=== PATIENT | female | born 1975 | race Caucasian/White ===

== ENCOUNTER → 2017-02-06 | Outpatient (CLI) | payer OTHER, SELFPAY | PROVIDERS: Visit Provider Obstetrics & Gynecology | DX: R10.2 Pelvic and perineal pain (principal) | CPT/HCPCS: 76830 ==

== ENCOUNTER → 2017-02-14 | Outpatient (RCR) | payer OTHER, SELFPAY | LOC: PT 11-14 13:23 | PROVIDERS: PCP Emergency Medicine; Visit Provider Emergency Medicine | DX: Z51.89 Encounter for other specified aftercare (principal); M54.5 Low back pain; M25.559 Pain in unspecified hip ==

== ENCOUNTER 2017-03-06 09:39 | Emergency (ER) | payer OTHER, SELFPAY ==
[2017-03-06 10:01] VITALS: BP 112/80; PULSE 77; RESP 20; TEMP 36.6; O2SAT 100; BMI 29.0
--- NOTE | 2017-03-06 10:33 | HMH.EDUTC ---
[facility] Disposition Clinical Impression: Bronchitis Disposition: Home, Self-Care Condition on Discharge: Good Instructions: DI for Acute Bronchitis Additional Instructions: * Monitor Temp. FU if fever develop * humidifier/vaporizer/hot steamy shower * Inhaler every 4-6 hours as needed like we discussed. If unsure how to use it, ask pharmacist to demonstrate how. Should help open airways and improve cough, wheezing, shortness of breath. * Mucinex during the day for your cough and cough suppressant only at night. Be sure to drink lots of water. Insurance may not cover a prescription of mucinex. Might be cheaper to get 400mg tablets and take 2 tablets morning, midday and evening all with lots of water. * Promethazine DM cough syrup will cause drowsiness. Use it only at night. No driving, operating machinery or caring for small children after taking it. * Start steroid today. Helps with inflammation therefore, cough and wheezing. Follow directions on package. Rvwd side effects. Pt reports they have taken them before. Prescriptions: methylPREDNISolone [Medrol] 4 mg PO DIRECTED #1 tab.ds.pk Promethazine/Dextromethorphan [Promethazine-Dm Syrup] 10 ml PO QID PRN #240 ml PRN Reason: Cough Referrals: Juan Carlos Jeffers MD [Primary Care Provider] - (IMMEDIATELY for new or worsening symptoms OR no noticeable improvement over the next 48-72 hours. 911 for difficulty breathing.) Time of Disposition: 12:08 Medical Decision Making Vital Signs: 03/06/17 10:01 Temperature 97.8 F Temperature Source Temporal Artery Scan Pulse Rate [Right Brachial] 77 Respiratory Rate 20 Blood Pressure [Right Arm] 112/80 Blood Pressure Mean [Right Arm] 90 Blood Pressure Source [Right Arm] Automatic Cuff Blood Pressure Position [Right Arm] Sitting 02 Sat by Pulse Oximetry 100 Oxygen Delivery Method Room Air - Lab Data Lab results reviewed: Yes: I reviewed the patient's lab results. Lab Results 03/06/17 10:53: Influenza Type A Ag Negative, Influenza Type B Ag Negative - Radiology Data #1 Image(s): Chest Image Reviewed: Yes I reviewed the patient's radiology image, Yes I have reviewed radiologist's interpretation, Yes I reviewed the patient's radiology image w/the ED provider Preliminary Findings: Normal/NAD (Dr. Woods rvwd results prior to radiologist report) - [place] Inquiry Pt receiving controlled substance: No [facility] HPI - General Stated complaint: flu like symptoms Time Seen by Provider: 03/06/17 10:34 Mode of Arrival: Family Vehicle Source of Information: Patient Limitations: No Limitations Description of Symptoms (Recalled from Triage Doc. by RN): COUGH AND CONGESTION. HEENT Symptoms (Recalled from RN notes): No Resp Symptoms (Recalled from RN notes): Yes (COUGH CONGESTION) Skin Symptoms (Recalled from RN notes): No MS Symptoms (Recalled from RN notes): No Functional Status (Recalled from RN notes): NA - History of Present Illness Provider Complaint: c/o nonprod cough. Started Friday, 3 days ago. Associated w/ bodyaches,chills, feeling feverish but hasn't checked temp. No improvement despite mucinex, robitussin, albuterol HFA and nebs. Occasional SOA. No wheezing. Denies asthma or COPD. reports has inhalers/nebs d/t SOA w/ exertion chronically that improved once she started exercising. Nonsmoker. Quit approx 20 years ago. No known sick contacts. Has had flu vaccine. - Related Data Home Medications Medication Instructions Recorded Confirmed Topiramate [Topamax 25mg tablet] 25 mg PO DAILY 03/06/17 03/06/17 Previous Rx's Medication Instructions Recorded Promethazine/Dextromethorphan 10 ml PO QID PRN #240 ml 03/06/17 [Promethazine-Dm Syrup] methylPREDNISolone [Medrol] 4 mg PO DIRECTED #1 tab.ds.pk 03/06/17 Allergies Allergy/AdvReac Type Severity Reaction Status Date / Time No Known Allergies Allergy Verified 02/20/17 10:41 - Worker's Comp Is this a Worker's Comp case?: No [facility]
--- NOTE | 2017-03-06 10:40 | ED_ITS ---
[facility] [place] Disposition Clinical Impression: Bronchitis Disposition: Home, Self-Care Condition on Discharge: Good Instructions: DI for Acute Bronchitis Additional Instructions: * Monitor Temp. FU if fever develop * humidifier/vaporizer/hot steamy shower * Inhaler every 4-6 hours as needed like we discussed. If unsure how to use it, ask pharmacist to demonstrate how. Should help open airways and improve cough, wheezing, shortness of breath. * Mucinex during the day for your cough and cough suppressant only at night. Be sure to drink lots of water. Insurance may not cover a prescription of mucinex. Might be cheaper to get 400mg tablets and take 2 tablets morning, midday and evening all with lots of water. * Promethazine DM cough syrup will cause drowsiness. Use it only at night. No driving, operating machinery or caring for small children after taking it. * Start steroid today. Helps with inflammation therefore, cough and wheezing. Follow directions on package. Rvwd side effects. Pt reports they have taken them before. Prescriptions: methylPREDNISolone [Medrol] 4 mg PO DIRECTED #1 tab.ds.pk Promethazine/Dextromethorphan [Promethazine-Dm Syrup] 10 ml PO QID PRN #240 ml PRN Reason: Cough Referrals: Juan Carlos Jeffers MD [Primary Care Provider] - (IMMEDIATELY for new or worsening symptoms OR no noticeable improvement over the next 48-72 hours. 911 for difficulty breathing.) Time of Disposition: 12:08 Medical Decision Making Vital Signs: 03/06/17 10:01 Temperature 97.8 F Temperature Source Temporal Artery Scan Pulse Rate [Right Brachial] 77 Respiratory Rate 20 Blood Pressure [Right Arm] 112/80 Blood Pressure Mean [Right Arm] 90 Blood Pressure Source [Right Arm] Automatic Cuff Blood Pressure Position [Right Arm] Sitting 02 Sat by Pulse Oximetry 100 Oxygen Delivery Method Room Air - Lab Data Lab results reviewed: Yes: I reviewed the patient's lab results. Lab Results 03/06/17 10:53: Influenza Type A Ag Negative, Influenza Type B Ag Negative - Radiology Data #1 Image(s): Chest Image Reviewed: Yes I reviewed the patient's radiology image, Yes I have reviewed radiologist's interpretation, Yes I reviewed the patient's radiology image w/the ED provider Preliminary Findings: Normal/NAD (Dr. Woods rvwd results prior to radiologist report) - [place] Inquiry Pt receiving controlled substance: No [facility] [place] HPI - General Stated complaint: flu like symptoms Time Seen by Provider: 03/06/17 10:34 Mode of Arrival: Family Vehicle Source of Information: Patient Limitations: No Limitations Description of Symptoms (Recalled from Triage Doc. by RN): COUGH AND CONGESTION. HEENT Symptoms (Recalled from RN notes): No Resp Symptoms (Recalled from RN notes): Yes (COUGH CONGESTION) Skin Symptoms (Recalled from RN notes): No MS Symptoms (Recalled from RN notes): No Functional Status (Recalled from RN notes): NA - History of Present Illness Provider Complaint: c/o nonprod cough. Started Friday, 3 days ago. Associated w / bodyaches,chills, feeling feverish but hasn't checked temp. No improvement despite mucinex, robitussin, albuterol HFA and nebs. Occasional SOA. No wheezing. Denies asthma or COPD. reports has inhalers/nebs d/t SOA w/ exertion chronically that improved once she started exercising. Nonsmoker. Quit approx 20 years ago. No known sick contacts. Has had flu vaccine. - Related Data Home Medications Medication Instructions Recorded C
--- NOTE | 2017-03-06 10:53 | XR_ITS ---
XR chest 2V HISTORY: ITS.REASON: COUGH/SOA X4 DAYS. NON-SMOKER ORDERING PHYSICIAN: Hattie Avina PATIENT AGE: 41 years COMPARISON: 17 FINDINGS: The cardiomediastinal silhouette and pulmonary vascularity are within normal limits. The lungs are clear without infiltrates, suspicious nodules, or pleural effusions. Surgical clips are present over the left breast No acute bony abnormalities. IMPRESSION: Negative chest, no acute finding
[2017-03-06 10:54] LABS: UTC Influenza A Antigen Negative (Negative); UTC Influenza B Antigen Negative (Negative)
== END 2017-03-06 12:10 | disposition home or self-care (01) ==
PROVIDERS: Emergency Provider Nurse Practitioner Family; Family Provider Emergency Medicine; PCP Emergency Medicine
DX: J40 Bronchitis, not specified as acute or chronic (principal); I25.2 Old myocardial infarction; Z79.899 Other long term (current) drug therapy
CPT/HCPCS: 71046; 87804; 99201; 99202

== ENCOUNTER 2017-03-13 13:36 | Emergency (ER) | payer OTHER, SELFPAY | END 2017-03-13 16:11 | disposition left against medical advice (07) | PROVIDERS: Emergency Provider Nurse Practitioner Family; Family Provider Emergency Medicine; PCP Emergency Medicine | DX: Z53.29 Procedure and treatment not carried out because of patient's decision for other reasons (principal) ==

== ENCOUNTER → 2017-03-27 08:00 | Outpatient (CLI) | payer OTHER, SELFPAY ==
--- NOTE | 2017-03-27 08:04 | XR_ITS ---
XR hand LT min 3V HISTORY: Pain following injury ITS.REASON: left hand possible thumb fracture ORDERING PHYSICIAN: Gonsalo Jarvis MD PATIENT AGE: 41 years COMPARISON: None FINDINGS: There is a faint transverse lucency involving the distal shaft of the first metacarpal which could be due to a nondisplaced fracture. No other significant anomalies are evident. IMPRESSION: Possible nondisplaced fracture distal shaft of first metacarpal. Follow-up study in 7-10 days may confirm.
--- NOTE | 2017-03-27 08:59 | US_ITS ---
US abdomen limited: HISTORY: Left lower quadrant pain ORDERING PHYSICIAN: Gonsalo Jarvis MD PATIENT AGE: 41 years COMPARISON: None FINDINGS: Ultrasound performed of the left lower quadrant. No obvious hernia. No obvious abdominal wall mass or abnormal fluid collection. IMPRESSION: Unremarkable limited ultrasound left lower quadrant. Consider CT for more thorough evaluation
== END ==
PROVIDERS: Family Provider Emergency Medicine; PCP Emergency Medicine; Visit Provider Obstetrics & Gynecology
DX: R10.9 Unspecified abdominal pain (principal); M79.642 Pain in left hand
CPT/HCPCS: 73130; 76705

== ENCOUNTER → 2017-04-18 09:01 | Outpatient (CLI) | payer OTHER, SELFPAY ==
--- NOTE | 2017-04-18 09:04 | XR_ITS ---
XR hand LT min 3V HISTORY: Pain following injury ITS.REASON: follow up ORDERING PHYSICIAN: Primo Tanner MD PATIENT AGE: 41 years COMPARISON: None FINDINGS: No definite fracture or dislocation evident. There is a transverse lucency once again noted at the distal aspect of the first metacarpal but is probably related to a mock line. Overall not significantly changed. No other significant anomalies evident. IMPRESSION: No acute finding. No definite fracture.
== END ==
PROVIDERS: PCP Emergency Medicine; Visit Provider Orthopaedic Surgery
DX: S63.642A Sprain of metacarpophalangeal joint of left thumb, initial encounter (principal)
CPT/HCPCS: 73130

== ENCOUNTER → 2017-04-21 09:52 | Outpatient (CLI) | payer OTHER, SELFPAY ==
--- NOTE | 2017-04-21 09:54 | CT_ITS ---
CT abdomen pelvis wo con Ordering Physician: Gonsalo Jarvis MD Patient Age: 41 years: Female HISTORY: ITS.REASON: Abdominal Pain Lower abdominal pain since November 2016 previous hysterectomy. TECHNIQUE: Helical CT scanning through abdomen and pelvis with oral contrast only. No IV contrast utilized. Sagittal axial and coronal CT reconstructions on CT workstation. COMPARISON :Previous CT abdomen and pelvis 617 FINDINGS Lung bases. The previous bibasilar atelectasis is since resolved. Lung bases appear clear with no acute findings. Heart normal size. A borderline wall thickening at the GE junction. Possible small hiatal hernia. Abdomen/pelvis. Lack of IV contrast decreases sensitivity Liver. No focal lesions on this noncontrast study. No biliary ductal dilatation . Pancreas unremarkable on this noncontrast study. Spleen unremarkable. Kidneys satisfactory. No urinary tract calculi nor obstruction. GI tract. The appendix is normal. Nicely visualized. Moderate stool is seen throughout the colon. Oral contrast is moved rapidly through the small bowel and through the majority of the colon to the proximal sigmoid colon. Small bowel appears normal caliber and terminal ileum unremarkable.. Numerous small nodes I believe account for the slight hazy fat appearance at the retroperitoneal region, most evident left periaortic region. This was seen before and slightly more apparent today. See no dominant node or nodule but if symptoms persist this may warrant follow-up to exclude a lymphoproliferative abnormalities. Unlikely but noted This Similar slight hazy appearance just superior to the celiac artery again noted as well however this feature has remained stable since studies dating back to 2016. Only some tiny mesenteric lymph nodes otherwise seen. No significant appearing pelvic adenopathy. Stable moderate size inguinal nodes. No pathologic appearing nodes. Hysterectomy. Generous wall thickness in May bladder could reflect a cystitis or merely its markedly contracted state. Generous soft tissue thickness about the vaginal cuff. Postsurgical changes at pelvis. Slightly more evident density at the right pelvis again seen in either related vaginal cuff or possibly residual right ovary no significant adnexal masses. No free fluid abdomen or pelvis. Lumbar spine. There is some mild hypertrophic degenerative facet changes throughout the lower L-spine but no spinal stenosis or osseous findings of significance. Hips intact. Osseous pelvis intact. IMPRESSION 1. Hysterectomy.. Postsurgical changes but No prominent findings Only question some possible mild thickening at the vaginal cuff more to the right than left.. 2. There is diffuse wall thickening of the urinary bladder. It may reflect is lack of distention although cannot exclude a cystitis. Urinalysis and clinical Correlation required 3. Hazy appearance at retroperitoneal & periaortic fat, but with no significant change 2016. Nonspecific. No pathologic nor prominent lymph nodes additionally raise concern. 4. Appendix normal. 5. Bowel unremarkable. No acute findings abdomen or pelvis. No free fluid. No free air in the abdomen or pelvis . Moderate stool throughout colon.. No urinary tract calculi nor obstruction.
== END ==
PROVIDERS: Family Provider Emergency Medicine; PCP Emergency Medicine; Visit Provider Obstetrics & Gynecology
DX: R10.9 Unspecified abdominal pain (principal)
CPT/HCPCS: 74176

== ENCOUNTER → 2017-05-15 10:09 | Outpatient (CLI) | payer OTHER, SELFPAY ==
[2017-05-15 10:17] LABS: Microscopic, Urine URINE MICROSCOPIC (MICROSCOPIC)
[2017-05-15 10:52] LABS: Appearance,Urine CLEAR (Clear); Bilirubin,Urine Negative (Negative); Blood, Urine Negative (Negative); Color,Urine YELLOW (Yellow); Glucose,Urine (UA) Negative (Negative); Ketones,Urine Negative (Negative); Leukocyte Esterase,Urine Negative (Negative); Nitrate,Urine Negative (Negative); Protein,Urine Negative (Negative); Urobilinogen,Urine 0.2 EU/dl (0.2)
[2017-05-15 10:54] LABS: Basophils % 0.6 % (0.1-2.0); Eosinophils # 0.1 K/mm3 (0.0-0.4); Eosinophils % 1.5 % (0.1-12.0); Hematocrit 36.3 % (37.0-47.0); Hemoglobin 11.4 g/dL (12.2-16.2); Lymphocytes # 1.6 K/mm3 (0.7-4.5); Lymphocytes % 28.4 K/mm3 (10-50); Mean Corpuscular HGB Conc 31.4 g/dL (31.8-35.4); Mean Corpuscular Hemoglobin 28.3 pg (27.0-31.2); Mean Corpuscular Volume 89.9 fl (81-99); Mean Platelet Volume 7.9 fl (7.4-10.4); Monocytes # 0.3 K/mm3 (0.1-1.0); Monocytes % 5.8 % (1.7-9.3); Neutrophils # 3.6 K/mm3 (1.8-7.8); Neutrophils % 63.6 % (37.0-80.0); Platelet Count 351 K/mm3 (142-424); Red Blood Count 4.04 M/mm3 (4.20-5.40); Red Cell Distribution Width 13.5 % (11.5-17.5); White Blood Count 5.6 K/mm3 (4.8-10.8)
[2017-05-15 11:41] LABS: Bacteria,Urine 2+ /lpf; RBC,Urine Occasional #/hpf (0-3)
[2017-05-15 11:54] LABS: HCG Qualitative, Serum Negative (Negative)
[2017-05-15 11:57] LABS: Alanine Aminotransferase 21 U/L (12-78); Albumin Level 3.5 gm/dL (3.4-5.0); Alkaline Phosphatase 81 U/L (46-116); Anion Gap 9.2 mEq/L (5-15); Aspartate Amino Transferase 19 U/L (15-37); Bilirubin,Total 0.3 mg/dL (0.2-1.0); Blood Urea Nitrogen 11 mg/dL (7-18); Calcium 8.7 mg/dL (8.5-10.1); Carbon Dioxide 27 mmol/L (21.0-32.0); Chloride 106 mmol/L (98-107); Creatinine,Serum 0.83 mg/dL (0.55-1.02); Estimated Glomerular Filt Rate 76 ml/min (>60); GFR (African American) 92 ML/MIN (>60); Globulin 3.5 gm/dl (1.3-3.2); Glucose 85 mg/dL (74-106); Potassium 4.2 mmoL/L (3.5-5.1); Sodium 138 mmol/L (136-145)
== END ==
PROVIDERS: Visit Provider Obstetrics & Gynecology
DX: Z01.812 Encounter for preprocedural laboratory examination (principal); R10.2 Pelvic and perineal pain
CPT/HCPCS: 36415; 80053; 81001; 84703; 85025; 87086

== ENCOUNTER 2017-05-20 06:02 | Day surgery (SDC) | payer OTHER, SELFPAY ==
[2017-05-19 09:58] VITALS: BMI 34.0
[2017-05-20] VITALS (17 sets, daily range): BP systolic 104–137; BP diastolic 57–92; PULSE 53–72; RESP 12–20; TEMP 36.3–43; O2SAT 89–100
--- NOTE | 2017-05-20 06:52 | HMH.ANESCL ---
[facility] Anesthesia Checklist - Patient Identification Patient Identification: Arm Band, Verbal (Name & ) - Structural Data Admitted From: Home Planned Operative Procedure/s: dx lap Consent for Planned Operative Procedure(s) Verified: Yes Verified Documents: Surgical Consent, History and Physical - NPO Status Verified Time NPO: 00:00 - Chart Verification Results Verified: CBC, BMP - Additional verifications Patient : No Anesthesia Reactions: No Hx Blood Transfusions: No Blood Transfusion Reaction: No Cephalosporin Allergy: No Previous Colonoscopy: No - Cardiovascular Assessment Heart Sounds: S1 & S2 Pulse Strength: Baseline Pulse Rhythm: Regular Peripheral Edema: No - Airway Assessment C-Spine Mobility Assessed: Yes TMJ Mobility Assessed: Yes Dentition: Good Dentition - Neurological Assessment Level of Consciousness: Awake, Alert, Appropriate Hx Seizures: No Numbness or tingling in extremities: No - Anesthesia Plan Anesthesia Risk discussed: Yes Anesthesia Plan: Verified ASA Class: III Anesthesia Type: General [facility] Anesthesia HX I have reviewed the patient's past medical history: Yes Medical History: Reports:: Coronary Artery Disease, Migraine, Myocardial Infarction Denies:: Cancer, Diabetes Mellitus Type 1, Diabetes Mellitus Type 2, MRSA, Seizures Other Medical History: Denies: Blood Transfusion Reaction Other Surgeries: Yes: , Hysterectomy-Total, Other Amputation: No Fractures: No *Family Hx:: Coronary Artery Disease, Cancer, Hypertension
--- NOTE | 2017-05-20 07:48 | HMH.OPNOTE ---
Date of procedure: 05/20/17 Pre-op Diagnosis:: Pelvic pain Post-op Diagnosis:: 1. Pelvic pain. 2. Pelvic adhesions. Procedure performed:: Diagnostic laparoscopy with lysis of adhesions Surgeon:: Gonsalo Jarvis MD SCREW SUPERVISOR:: Theo Olvera Anesthesia: GETA Estimated blood loss (mL): 10 Operative findings:: Left-sided pelvic adhesions Operative note:: After the patient was prepped and draped in usual fashion and general anesthesia was administered, examination under anesthesia revealed the absence of pelvic organs, and no palpable masses. A moist sponge stick was placed in the vagina for elevation of the vaginal cuff during the laparoscopy. After appropriate regloving, the skin on either side of the umbilicus was tented up with towel clips. A small incision was made in the base of the umbilicus with a knife, and a Veress needle was inserted into the abdominal cavity. After demonstration of negative pressure, an adequate pneumoperitoneum was created with carbon dioxide gas. The Veress needle was then replaced with a trocar and cannula, using the [employer] system, and the trocar replaced with a laparoscope. The uterus and both adnexa were absent. The cul-de-sac was free of adhesions, as was the right adnexal area. On the left side, however, the omentum was adherent to the left ovarian pedicle, putting tension on the bowel. There was no other pathology noted. After transillumination and under direct visualization, an accessory port was placed in the right lower quadrant. Using an Endo Maurice for traction, the adhesions were taken down and freed up. There was no undue bleeding. There was no other pathology noted. The pneumoperitoneum was reduced, and the instruments were removed under direct visualization. The incisions were infused with a dilute solution of Marcaine, as a local anesthetic, and closed with subcuticular sutures of 3-0 Vicryl. The wounds were appropriately dressed. The sponge stick was removed from the vagina. The sponge and needle count was correct. The estimated blood loss was less than 10 cc and the patient tolerated the procedure well, was taken to PACU in excellent condition. She will be discharged today, if her vital signs are stable. Condition: stable Disposition: same day Specimens:: None Complications:: None
--- NOTE | 2017-05-20 07:54 | P.OP_ITS ---
Date of procedure: 05/20/17 Pre-op Diagnosis:: Pelvic pain Post-op Diagnosis:: 1. Pelvic pain. 2. Pelvic adhesions. Procedure performed:: Diagnostic laparoscopy with lysis of adhesions Surgeon:: Gonsalo Jarvis MD GARMENT PRESSER:: Theo Olvera Anesthesia: GETA Estimated blood loss (mL): 10 Operative findings:: Left-sided pelvic adhesions Operative note:: After the patient was prepped and draped in usual fashion and general anesthesia was administered, examination under anesthesia revealed the absence of pelvic organs, and no palpable masses. A moist sponge stick was placed in the vagina for elevation of the vaginal cuff during the laparoscopy. After appropriate regloving, the skin on either side of the umbilicus was tented up with towel clips. A small incision was made in the base of the umbilicus with a knife, and a Veress needle was inserted into the abdominal cavity. After demonstration of negative pressure, an adequate pneumoperitoneum was created with carbon dioxide gas. The Veress needle was then replaced with a trocar and cannula, using the [employer] system, and the trocar replaced with a laparoscope. The uterus and both adnexa were absent. The cul-de-sac was free of adhesions , as was the right adnexal area. On the left side, however, the omentum was adherent to the left ovarian pedicle, putting tension on the bowel. There was no other pathology noted. After transillumination and under direct visualization, an accessory port was placed in the right lower quadrant. Using an Endo Moody for traction, the adhesions were taken down and freed up. There was no undue bleeding. There was no other pathology noted. The pneumoperitoneum was reduced, and the instruments were removed under direct visualization. The incisions were infused with a dilute solution of Marcaine, as a local anesthetic, and closed with subcuticular sutures of 3-0 Vicryl. The wounds were appropriately dressed. The sponge stick was removed from the vagina. The sponge and needle count was correct. The estimated blood loss was less than 10 cc and the patient tolerated the procedure well, was taken to PACU in excellent condition. She will be discharged today, if her vital signs are stable. Condition: stable Disposition: same day Specimens:: None Complications:: None
--- NOTE | 2017-05-20 07:57 | HMH.ANESI ---
[facility] Anesthesia Record Part I Intake, IV Amount: 1,500 Estimated blood loss (mL): 0 Urine output (mL): 100 Blood Pressure: 137/82 SaO2: 99 Pulse Rate: 60 Respiratory Rate: 12 Temperature: 97.8 F Patient is:: Awake, Stable Stable to PACU at:: 07:55
--- NOTE | 2017-05-20 07:58 | P.PN_ITS ---
[facility] Anesthesia Record Part II Discharge Time: 08:25 Destination: [facility] PACU nurse assessment reviewed?: Yes Patient Condition:: Good Anesthesia Complications:: None
--- NOTE | 2017-05-20 07:58 | HMH.ANESII ---
[facility] Anesthesia Record Part II Discharge Time: 08:25 Destination: [facility] PACU nurse assessment reviewed?: Yes Patient Condition:: Good Anesthesia Complications:: None
[2017-05-20 10:13] LABS: Hematocrit 33.1 % (37.0-47.0); Hemoglobin 10.6 g/dL (12.2-16.2)
== END 2017-05-20 10:20 | disposition home or self-care (01) ==
LOC: OR 06:03
PROVIDERS: Family Provider Emergency Medicine; PCP Physician Assistant; Visit Provider Obstetrics & Gynecology
PROC: (CPT 49320; principal; 2017-05-20 07:30)
DX: N73.6 Female pelvic peritoneal adhesions (postinfective) (principal); Z90.79 Acquired absence of other genital organ(s); Z90.721 Acquired absence of ovaries, unilateral
CPT/HCPCS: 49329; 85014; 85018; 96374; J2405; J2710

== ENCOUNTER → 2017-08-14 09:42 | Outpatient (CLI) | payer OTHER, SELFPAY ==
--- NOTE | 2017-08-14 09:44 | CT_ITS ---
CT abdomen pelvis wo/w con CLINICAL INDICATION: Left lower quadrant pain ITS.REASON: pelvic pain ORDERING PHYSICIAN: Gonsalo Jarvis MD PATIENT AGE: 41 years COMPARISON: 04/21/2017 TECHNIQUE: Axial images obtained without and with contrast. Sagittal and coronal reformats are also generated and reviewed. All CT scans at the facility use one or more dose reduction, viz: automated exposure control; ma/kV adjustment per patient size (including targeted exams where dose is matched to indication; i.e. head); or iterative reconstruction technique. PROCEDURE: Oral Contrast: None IV Contrast: 75 mL's Isovue-370. FINDINGS: Lung bases are clear. Prior cholecystectomy. No ductal dilatation. The liver, spleen, adrenal glands, pancreas, and kidneys have an unremarkable appearance. No renal or ureteral calculi.. There are a few small periaortic and mesenteric lymph nodes with some minimal haziness of the retroperitoneal fat as before.. Unremarkable appendix. No evidence of intestinal obstruction or free air. No evidence of diverticulitis. Prior hysterectomy. The vaginal cuff appears somewhat thickened similar to the previous exam nonspecific. No pelvic mass or abnormal fluid collection is evident. Small nodes are present in the left inguinal region with some small vessels in the left inguinal area. No acute bony anomalies. IMPRESSION: 1. Overall no significant change from 04/21/2017 with no acute finding. 2. Prior hysterectomy with mild thickening of the vaginal cuff nonspecific and not significant change.
== END ==
PROVIDERS: Family Provider Emergency Medicine; PCP Physician Assistant; Visit Provider Obstetrics & Gynecology
DX: R10.2 Pelvic and perineal pain (principal); G89.18 Other acute postprocedural pain
CPT/HCPCS: 74170; 74178; Q9967

== ENCOUNTER → 2017-10-06 09:31 | Outpatient (CLI) | payer OTHER, SELFPAY ==
[2017-10-06 09:34] LABS: Microscopic, Urine URINE MICROSCOPIC (MICROSCOPIC)
[2017-10-06 09:45] LABS: Appearance,Urine CLEAR (Clear); Bilirubin,Urine Negative (Negative); Blood, Urine Negative (Negative); Color,Urine YELLOW (Yellow); Glucose,Urine (UA) Negative (Negative); Ketones,Urine Negative (Negative); Leukocyte Esterase,Urine Negative (Negative); Nitrate,Urine Negative (Negative); Protein,Urine Negative (Negative); Urobilinogen,Urine 0.2 EU/dl (0.2)
[2017-10-06 09:55] LABS: Bacteria,Urine 1+ /lpf; Mucus,Urine 1+ /lpf; WBC,Urine Occasional #/hpf (0-3)
[2017-10-06 10:19] LABS: Basophils % 0.3 % (0.1-2.0); Eosinophils # 0.2 K/mm3 (0.0-0.4); Eosinophils % 2.6 % (0.1-12.0); Hematocrit 39.5 % (37.0-47.0); Hemoglobin 12.9 g/dL (12.2-16.2); Lymphocytes # 1.9 K/mm3 (0.7-4.5); Lymphocytes % 28.6 K/mm3 (10-50); Mean Corpuscular HGB Conc 32.6 g/dL (31.8-35.4); Mean Corpuscular Hemoglobin 28.9 pg (27.0-31.2); Mean Corpuscular Volume 88.6 fl (81-99); Mean Platelet Volume 7.7 fl (7.4-10.4); Monocytes # 0.3 K/mm3 (0.1-1.0); Neutrophils # 4.1 K/mm3 (1.8-7.8); Neutrophils % 63.4 % (37.0-80.0); Platelet Count 337 K/mm3 (142-424); Red Blood Count 4.45 M/mm3 (4.20-5.40); Red Cell Distribution Width 15.1 % (11.5-17.5); White Blood Count 6.5 K/mm3 (4.8-10.8)
[2017-10-06 11:04] LABS: Alanine Aminotransferase 24 U/L (12-78); Albumin Level 3.4 gm/dL (3.4-5.0); Albumin/Globulin Ratio 0.9 (1.1-1.8); Alkaline Phosphatase 84 U/L (46-116); Anion Gap 10.9 mEq/L (5-15); Aspartate Amino Transferase 17 U/L (15-37); Bilirubin,Total 0.4 mg/dL (0.2-1.0); Blood Urea Nitrogen 8 mg/dL (7-18); Calcium 8.8 mg/dL (8.5-10.1); Carbon Dioxide 29 mmol/L (21.0-32.0); Chloride 104 mmol/L (98-107); Estimated Glomerular Filt Rate 69 ml/min (>60); GFR (African American) 84 ML/MIN (>60); Globulin 3.6 gm/dl (1.3-3.2); Glucose 78 mg/dL (74-106); Potassium 3.9 mmoL/L (3.5-5.1); Sodium 140 mmol/L (136-145)
== END ==
PROVIDERS: Visit Provider Obstetrics & Gynecology
DX: Z01.818 Encounter for other preprocedural examination (principal); R10.2 Pelvic and perineal pain; N73.6 Female pelvic peritoneal adhesions (postinfective)
CPT/HCPCS: 36415; 80053; 81001; 85025

== ENCOUNTER → 2017-12-02 14:59 | Outpatient (REF) | payer OTHER, SELFPAY | LOC: LAB 14:59 | PROVIDERS: Visit Provider Obstetrics & Gynecology | DX: B99.9 Unspecified infectious disease (principal) | CPT/HCPCS: 87070; 87077; 87205 ==

== ENCOUNTER 2022-12-03 07:19 | Day surgery (SDC) | payer OTHER, SELFPAY ==
[2022-12-03 07:35] VITALS: BMI 37.7
[2022-12-03 07:58] VITALS: BP 169/74; PULSE 64; RESP 17; O2SAT 97
[2022-12-03 08:29] VITALS: BP 118/67; PULSE 94; RESP 19; O2SAT 99
--- NOTE | 2022-12-03 08:34 | EXP.LOOP ---
[facility] Loop Recorder Date: 12/03/22 Time: 08:34 Procedure Performed:: Implantation of loop recorder Indication:: Symptomatic tachy-bradycardia syndrome Technique:: Patient was brought to the cardiac Electrical Development Engineer. After informed consent obtained, 1% lidocaine with epinephrine was used to anesthetize the site along the left anterior aspect of the chest near the sternal border. Using the preformed scalpel, an incision was made and using the supplied preloaded apparatus, the loop recorder was placed subcutaneously without difficulty. Following the deployment of the loop recorder interrogation of the device was performed to ensure appropriate voltage was being detected. Once this was verified, Steri-Strips were placed over the incision and the patient was prepped to discharge home. Patient tolerated the procedure well with minimal discomfort. Impression:: Successful implantation of Parametric Diningt-IQ EL plus loop recorder Serial Number:: Model number [id number] Serial #[id number] Plan:: Routine postop care
== END 2022-12-03 08:40 | disposition home or self-care (01) ==
PROVIDERS: PCP Nurse Practitioner Family; Visit Provider Internal Medicine
DX: I49.5 Sick sinus syndrome (principal)
CPT/HCPCS: 33285; C1764

== ENCOUNTER 2023-09-28 21:24 | Emergency (ER) | payer OTHER, SELFPAY ==
[2023-09-28 21:24] VITALS: BP 138/77; PULSE 57; RESP 11; TEMP 36.7; O2SAT 95; BMI 40.0
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
[2023-09-28 21:59] LABS: Basophils # 0.1 K/mm3 (0-0.2); Basophils % 1.1 % (0.1-2.0); Eosinophils # 0.3 K/mm3 (0.0-0.4); Eosinophils % 4.5 % (0.1-12.0); Hematocrit 40.6 % (37.0-47.0); Hemoglobin 13.4 g/dL (12.2-16.2); Lymphocytes # 2.3 K/mm3 (0.7-4.5); Lymphocytes % 34.5 % (10-50); Mean Corpuscular HGB Conc 33.1 g/dL (31.8-35.4); Mean Corpuscular Hemoglobin 31.8 pg (27.0-31.2); Mean Corpuscular Volume 96.1 fl (81-99); Mean Platelet Volume 8.3 fl (7.4-10.4); Monocytes # 0.3 K/mm3 (0.1-1.0); Monocytes % 4.3 % (1.7-9.3); Neutrophils # 3.8 K/mm3 (1.8-7.8); Neutrophils % 55.6 % (37.0-80.0); Platelet Count 277 K/mm3 (142-424); Red Blood Count 4.23 M/mm3 (4.20-5.40); Red Cell Distribution Width 13.3 % (11.5-17.5); White Blood Count 6.8 K/mm3 (4.8-10.8)
--- NOTE | 2023-09-28 22:00 | ECG_ITS ---
APPROVED REPORT Exam: Resting ECG HR:51 bpm ECG Measurements Heart Rate 51 AXES NH 202 P 56 QRSd 114 QRS 2 QT 490 T 15 QTc 467 Conclusion SINUS BRADYCARDIA MODERATE INTRAVENTRICULAR CONDUCTION DELAY [110+ ms QRS DURATION] BORDERLINE ECG Electronically signed by : MIYA HOUSTON, 09/28/2023 23:29:15
[2023-09-28 22:04] LABS: Albumin Level 3.8 g/dl (3.5-5.0); Chloride 109 mmol/L (98-107); Potassium 3.8 mmoL/L (3.5-5.1); Sodium 137 mmol/L (136-145)
[2023-09-28 22:06] LABS: Blood Urea Nitrogen 14 mg/dl (7-17); Creatinine Clearance Estimated 114 mL/min (50-200); Estimated Glomerular Filt Rate 60 ml/min (>60); GFR (African American) 72 ML/MIN (>60)
[2023-09-28 22:07] LABS: Alanine Aminotransferase 16 U/L (12-78); Albumin/Globulin Ratio 1.3 (1.1-1.8); Alkaline Phosphatase 75 U/L (38-126); Anion Gap 5.8 mEq/L (5-15); Aspartate Amino Transferase 26 U/L (14-36); Bilirubin,Total 0.4 mg/dl (0.2-1.3); Calcium 8.3 mg/dl (8.4-10.2); Carbon Dioxide 26 mmol/L (22.0-30.0); Globulin 2.9 g/dL (1.3-3.2); Glucose 102 mg/dl (74-100); Magnesium 1.8 mg/dl (1.6-2.3); Total Protein,Serum 6.7 g/dl (6.3-8.2)
[2023-09-28 22:25] LABS: Troponin I < 0.01 ng/ml (0.00-0.034)
[2023-09-28 22:40] LABS: Microscopic, Urine URINE MICROSCOPIC (MICROSCOPIC)
[2023-09-28 22:42] LABS: Appearance,Urine CLEAR (Clear); Bilirubin,Urine Negative (Negative); Blood, Urine Negative (Negative); Color,Urine YELLOW (Yellow); Glucose,Urine (UA) Negative (Negative); Ketones,Urine Negative (Negative); Leukocyte Esterase,Urine Negative (Negative); Nitrate,Urine Negative (Negative); PH,Urine 6.5 (5.0-8.5); Protein,Urine Negative (Negative); Specific Gravity, Urine 1.025 (1.005-1.030)
[2023-09-28 22:53] LABS: Barbiturates Screen,Urine Negative ng/ml (<200); Benzodiazepines Screen,Urine Negative ng/ml (<200)
[2023-09-28 22:54] LABS: Amphetamine/Metha Screen,Urine Negative ng/ml (<1000)
[2023-09-28 22:55] LABS: Cocaine Screen,Urine Negative ng/ml (<300); Methadone Screen,Urine Negative ng/ml (<300)
[2023-09-28 22:56] LABS: Cannabinoid Screen,Urine Negative ng/ml (<50)
[2023-09-28 22:57] LABS: Opiate Screen,Urine Negative ng/ml (<300); Phencyclidine Screen,Urine Negative ng/ml (<25)
[2023-09-28 23:52] LABS: Triiodothryronine (T3) Uptake 32 % (23.5-40.5)
[2023-09-28 23:53] LABS: Free Thyroxine Index 2.1 ug/dL (5.93-13.13); T4 (Thyroxine) 6.5 ug/dl (5.53-11.0)
[2023-09-29 00:06] LABS: Thyroid Stimulating Hormone 5.23 uIU/mL (0.465-4.68)
[2023-09-29 00:24] VITALS: BP 126/86; PULSE 53; RESP 12; TEMP 36.7; O2SAT 97
== END 2023-09-29 00:25 | disposition home or self-care (01) ==
PROVIDERS: Physician Assistant; Emergency Provider Emergency Medicine; PCP Nurse Practitioner Family
DX: M54.59 Other low back pain (principal); R94.6 Abnormal results of thyroid function studies; R00.1 Bradycardia, unspecified; R53.1 Weakness
CPT/HCPCS: 70450; 72131; 80050; 80053; 80307; 81001; 83735; 84436; 84443; 84479; 84484; 85025; 93005; 99285

== ENCOUNTER 2023-10-03 10:28 | Outpatient (CLI) | payer OTHER, SELFPAY ==
--- NOTE | 2023-10-03 10:28 | CA_ITS ---
APPROVED REPORT EXAM: Comprehensive 2D, Doppler, and color-flow Echocardiogram [employer] Operator: Ciara Owens CRT Ht: 5 ft 3 in Wt: 226lbs BSA: 2.04 BP: 133/77 mmHg Indications: Chest Pain, Shortness of Breath, loop recorder, SVT 2D Dimensions Left Atrium 3.07 cm LVEF (Onlan's) 59.60 % LVOT 1.60 cm (M/F) 1.5-2.5 LV Volume 95.30 mL LA Volume 26.40 mL LA Volume Index 12.90 mL/m2 (M/F) 16-34 EF AP4 59.50 % EF AP2 58.3 % EF BP 59.6 % GL Strain -19.7 % M-Mode Dimensions RVDd 1.96 cm (0.9-2.6) LVDd 5.27 cm (3.5-5.7) Ao Diam 4.13 cm (2.0-3.7) LVDs 3.77 cm (3.5-5.7) IVSd 0.85 cm (0.6-1.1) PWd 0.57 cm (0.6-1.1) EF (Teich) 54.50% FS 28.50% EDV (Teich) 133.60 mL TAPSE 2.90 (<1.7) ESV (Teich) 60.80 mL LV Diastology E Decel Time 189 (160-240 msec) E/A Ratio 1.21 MED E' 6.2 (>= 7 cm/sec) MED A' 7.80 cm/s E'/MED E' Ratio 13.08 (<= 14) LAT E' 10.8 (>= 10 cm/sec) LAT A' 9.50 cm/s E/LAT E' Ratio 7.51 (<= 14) Aortic Valve AoV Peak Daren. 116.0 (50-130 cm/s) AO Peak GR. 5.40 mmHg Mitral Valve MV E Max Daren. 81.0 (40-130 cm/s) MV A Velocity 67.0 (40-130 cm/s) E/A Ratio 1.21 MV Decel. Time 189 (160-240 ms) Tricuspid Valve TR P. Velocity 219.00 cm/s RAP Estimate 10.00 mmHg RVSP 29.20 mmHg Left Ventricle The left ventricle is normal size. The left ventricular systolic function is normal. The left ventricular ejection fraction is within the normal range. There is increased LV wall thickness. There is normal LV segmental wall motion. The left ventricular diastolic function is normal. LVEF is 60%. Right Ventricle The right ventricle is normal size. The right ventricular systolic function is normal. Atria The left atrium size is normal. The right atrium size is normal. There is no Doppler evidence of interatrial shunt. Aortic Valve The aortic valve opens well. There is no aortic valvular stenosis. Trace aortic regurgitation. Mitral Valve The mitral valve is normal in structure. No evidence of mitral valve stenosis. Mild mitral regurgitation. Tricuspid Valve The tricuspid valve leaflets are thin and pliable. Trace tricuspid regurgitation. There is insufficient TR jet to estimate RVSP. Pulmonic Valve The pulmonary valve is normal in structure. Trace pulmonic regurgitation. Great Vessels The aortic root is normal in size. The ascending aorta is normal in size. IVC is normal in size and collapses >50% with inspiration. Pericardium There is no pericardial effusion. Other Information Study Quality: Fair Conclusion Normal biventricular systolic function. Mild MR. Electronically signed by : Christy Harrison MD 10/06/2023 05:54:47
== END 2023-10-03 23:59 | disposition home or self-care (01) ==
LOC: RT 10:28
PROVIDERS: PCP Family Medicine; Visit Provider Physician Assistant
DX: I47.10 Supraventricular tachycardia, unspecified (principal); R55 Syncope and collapse; R42 Dizziness and giddiness
CPT/HCPCS: 93306

== ENCOUNTER 2023-11-25 11:19 | Outpatient (CLI) | payer OTHER, SELFPAY ==
[2023-11-25 12:00] LABS: Basophils # 0.1 K/mm3 (0-0.2); Eosinophils # 0.2 K/mm3 (0.0-0.4); Eosinophils % 3.3 % (0.1-12.0); Hematocrit 41.8 % (37.0-47.0); Hemoglobin 14.3 g/dL (12.2-16.2); Mean Corpuscular HGB Conc 34.3 g/dL (31.8-35.4); Mean Corpuscular Hemoglobin 31.7 pg (27.0-31.2); Mean Corpuscular Volume 92.4 fl (81-99); Mean Platelet Volume 8.6 fl (7.4-10.4); Monocytes # 0.3 K/mm3 (0.1-1.0); Monocytes % 4.4 % (1.7-9.3); Neutrophils # 4.1 K/mm3 (1.8-7.8); Neutrophils % 61.4 % (37.0-80.0); Platelet Count 272 K/mm3 (142-424); Red Blood Count 4.53 M/mm3 (4.20-5.40); Red Cell Distribution Width 12.9 % (11.5-17.5); White Blood Count 6.6 K/mm3 (4.8-10.8)
[2023-11-25 12:06] LABS: D-Dimer 0.44 ug/mL (0.0-0.5)
[2023-11-25 12:14] LABS: Chloride 102 mmol/L (98-107); Potassium 3.9 mmoL/L (3.5-5.1); Sodium 137 mmol/L (136-145)
[2023-11-25 12:16] LABS: Alanine Aminotransferase 16 U/L (12-78); Alkaline Phosphatase 75 U/L (38-126); Aspartate Amino Transferase 22 U/L (14-36); Bilirubin,Direct 0.1 mg/dl (0.0-0.4); Bilirubin,Indirect 0.4 mg/dL (0.0-0.9); Bilirubin,Total 0.5 mg/dl (0.2-1.3); Bilirubin,Unconjugated 0.4 mg/dL (0.0-1.1); Cholesterol 227 mg/dl (140-200); Total Protein,Serum 6.7 g/dl (6.3-8.2); Triglycerides 141 mg/dl (30-150); VLDL Cholesterol 28 mg/dL (0-40)
[2023-11-25 12:17] LABS: Alanine Aminotransferase 15 U/L (12-78); Albumin/Globulin Ratio 1.5 (1.1-1.8); Alkaline Phosphatase 75 U/L (38-126); Anion Gap 11.9 mEq/L (5-15); Aspartate Amino Transferase 22 U/L (14-36); Bilirubin,Total 0.5 mg/dl (0.2-1.3); Blood Urea Nitrogen 7 mg/dl (7-17); Calcium 9.4 mg/dl (8.4-10.2); Carbon Dioxide 27 mmol/L (22.0-30.0); Estimated Glomerular Filt Rate 59 ml/min (>60); GFR (African American) 72 ML/MIN (>60); Globulin 2.7 g/dL (1.3-3.2); Glucose 99 mg/dl (74-100); Total Protein,Serum 6.7 g/dl (6.3-8.2)
[2023-11-25 12:17] LABS: Chol/HDL Ratio 3.7 (1-3.5); HDL Cholesterol 62 mg/dl (40-60)
[2023-11-25 12:28] LABS: Direct LDL Cholesterol 125.71 mg/dL (100-129)
[2023-11-25 12:32] LABS: Free T4 (Free Thyroxine) 0.87 ng/dl (0.78-2.19)
[2023-11-25 12:46] LABS: Hemoglobin A1C 5.2 % (4.0-6.0)
[2023-11-25 12:47] LABS: Thyroid Stimulating Hormone 3.41 uIU/mL (0.465-4.68)
[2023-11-25 13:48] LABS: Intact Parathyroid Hormone 59.6 pg/mL (7.5-53.5)
[2023-11-25 17:20] LABS: 25-OH Vitamin D, Total 36.9 ng/mL (30-100)
[2023-11-26 07:15] LABS: Calcium, Ionized 5.2 mg/dL (4.5-5.6)
== END 2023-11-25 23:59 | disposition home or self-care (01) ==
PROVIDERS: PCP Family Medicine; Visit Provider Internal Medicine
DX: I31.39 Other pericardial effusion (noninflammatory) (principal); I47.10 Supraventricular tachycardia, unspecified; G47.33 Obstructive sleep apnea (adult) (pediatric); J45.909 Unspecified asthma, uncomplicated; K22.2 Esophageal obstruction; R79.89 Other specified abnormal findings of blood chemistry; R06.09 Other forms of dyspnea; R42 Dizziness and giddiness; R55 Syncope and collapse; R06.00 Dyspnea, unspecified; I11.9 Hypertensive heart disease without heart failure; E21.3 Hyperparathyroidism, unspecified
CPT/HCPCS: 36415; 80050; 80053; 80061; 80076; 82306; 82330; 83036; 83970; 84439; 84443; 85025; 85378

== ENCOUNTER 2023-12-01 15:48 | Outpatient (CLI) | payer OTHER, SELFPAY ==
[2023-12-09 11:15] LABS: D001-IgE D pteronyssinus <0.10 kU/L (Class 0); D002-IgE D farinae <0.10 kU/L (Class 0); E001-IgE Cat Dander <0.10 kU/L (Class 0); E005-IgE Dog Dander <0.10 kU/L (Class 0); E072-IgE Mouse Urine <0.10 kU/L (Class 0); G002-IgE Bermuda Grass <0.10 kU/L (Class 0); G006-IgE Timothy Grass <0.10 kU/L (Class 0); I006-IgE Cockroach, German <0.10 kU/L (Class 0); Immunoglobulin E, Total 79 IU/mL (6-495); M001-IgE Penicillium chrysogen <0.10 kU/L (Class 0); M002-IgE Cladosporium herbarum <0.10 kU/L (Class 0); M003-IgE Aspergillus fumigatus <0.10 kU/L (Class 0); M006-IgE Alternaria alternata <0.10 kU/L (Class 0); T001-IgE Maple/Box Elder <0.10 kU/L (Class 0); T003-IgE Common Silver Birch <0.10 kU/L (Class 0); T006-IgE Cedar, Mountain <0.10 kU/L (Class 0); T007-IgE Oak, White <0.10 kU/L (Class 0); T008-IgE Elm, American <0.10 kU/L (Class 0); T010-IgE Walnut <0.10 kU/L (Class 0); T011-IgE Maple Leaf Sycamore <0.10 kU/L (Class 0); T014-IgE Cottonwood <0.10 kU/L (Class 0); T015-IgE Ash, White <0.10 kU/L (Class 0); T022-IgE Pecan, Hickory <0.10 kU/L (Class 0); T070-IgE White Mulberry <0.10 kU/L (Class 0); W001-IgE Ragweed, Short <0.10 kU/L (Class 0); W011-IgE Thistle, Russian <0.10 kU/L (Class 0); W014-IgE Pigweed, Common <0.10 kU/L (Class 0); W018-IgE Sheep Sorrel <0.10 kU/L (Class 0)
== END 2023-12-01 23:59 | disposition home or self-care (01) ==
LOC: LAB 15:50
PROVIDERS: PCP Family Medicine; Visit Provider Internal Medicine Pulmonary Disease
DX: J30.9 Allergic rhinitis, unspecified (principal)
CPT/HCPCS: 36415; 82785; 86003

== ENCOUNTER 2023-12-09 19:46 | Emergency (ER) | payer OTHER, SELFPAY ==
[2023-12-09] VITALS (7 sets, daily range): BP systolic 106–118; BP diastolic 66–78; PULSE 52–72; RESP 18; TEMP 36.6–36.8; O2SAT 92–98; BMI 39.4
[2023-12-09] MEDS: DEXAMETHASONE 4MG/ML 1ML VIAL 10 MG IV (20:24)
[2023-12-09] MEDS: PROCHLORPERAZINE 10MG/2ML VIAL 10 MG IV (20:24)
[2023-12-09] MEDS: KETOROLAC 30MG/ML VIAL 15 MG IV (20:25)
[2023-12-09] MEDS: ACETAMINOPHEN 500MG TAB 1000 MG PO (20:25)
[2023-12-09] MEDS: diphenhydrAMINE 50MG/ML VIAL 25 MG IV (20:25)
--- NOTE | 2023-12-09 20:32 | HMH.EDGENADL ---
Discharge Plan Disposition Patient Disposition: Home, Self-Care Chief Complaint: Headache Prescriptions Prescriptions: No Action cyanocobalamin (vitamin B-12) 1,000 mcg capsule 1,000 mcg PO DAILY ipratropium bromide 21 mcg (0.03 %) spray,non-aerosol intranasal fluticasone furoate-vilanterol [Breo Ellipta] 200-25 mcg/dose blister with device 1 inh inhalation DAILY trazodone 100 mg tablet 100 mg PO HS PRN Patient Comments: TAKE 2 TABLETS BY MOUTH NIGHTLY NEEDED FOR SLEEP estradiol 1 mg tablet 1 mg PO DAILY cholecalciferol (vitamin D3) 125 mcg (5,000 unit) capsule 125 mcg PO DAILY Qty: 30 0RF albuterol sulfate 90 mcg/actuation HFA aerosol inhaler 2 puff inhalation Q4-6H PRN (Reason: shortness of breath or wheezing) Qty: 8.5 3RF escitalopram oxalate 20 mg tablet 20 mg PO DAILY buspirone 10 mg tablet 10 mg PO TID PRN Referrals Follow up/Referrals: Gurjit Mena MD [Primary Care Provider] - See instructions Activity Restrictions/Add. Instructions Additional Instructions/Restrictions: Call your family doctor to establish care for this visit to the emergency department and schedule follow-up within 48 hours to ensure improvement. If you have any worsening of your condition or any other concerning signs or symptoms, return to the emergency department or your primary care doctor for further evaluation. Clinical Impressions Clinical Impression: Headache Print Language Print Language: Syriac Discharge ED Provider: Doni Nava General Adult HPI General Chief complaint: Headache Stated complaint: Brain trumor,DUFFY Time Seen by Provider: 12/09/23 19:59 Mode of Arrival: Ambulatory Source of Information: Patient and Relative Limitations: No Limitations Description of Symptoms (Recalled from ER Triage Doc. by RN): pt reports a hx of a meningioma since June without recent evaluation. approxiamtely 2 hours ago she began experiencing a severe headache. History of Present Illness HPI narrative: Please note that above description of symptoms, in this electronic medical record under categorization of recalled from ER triage doctor by RN are reflective of an initial nursing assessment, however, is not reflective of my full history and physical exam that was personally taken and clarified. Consequentially, this preceding description of symptoms, which may include the patient's categorized chief complaint in the EMR, do not reflect my personal clinical impression, and the ultimate description of history of present illness and patient stated complaints should be deferred to this section of the note. Unless stated otherwise or congruent with this section of the note, additional signs, symptoms, or incongruence should be interpreted as inaccurate with my clinical impression. Related Data Home Medications ?Medication ?Instructions ?Recorded ?Confirmed cyanocobalamin (vitamin B-12) 1,000 mcg PO DAILY 01/11/20 12/05/23 1,000 mcg capsule fluticasone furoate 200 1 inh inhalation DAILY 03/26/22 12/05/23 mcg-vilanterol 25 mcg/dose inhalation powder (Breo Ellipta) ipratropium bromide 21 mcg (0.03 intranasal 03/17/23 12/05/23 %) nasal spray estradiol 1 mg tablet 1 mg PO DAILY 08/15/23 12/05/23 trazodone 100 mg tablet 100 mg PO HS PRN 09/04/23 12/05/23 buspirone 10 mg tablet 10 mg PO TID PRN 12/05/23 12/05/23 escitalopram oxalate 20 mg tablet 20 mg PO DAILY 12/05/23 12/05/23 Previous Rx's ?Medication ?Instructions ?Recorded albuterol sulfate 90 mcg/actuation 2 puff inhalation Q4-6H PRN 09/08/23 aerosol inhaler shortness of breath or wheezing #8.5 grams cholecalciferol (vitamin D3) 125 125 mcg PO DAILY #30 caps 09/08/23 mcg (5,000 unit) capsule Allergies Allergy/AdvReac Type Severity Reaction Status Date / Time adhesive tape Allergy Mild Verified 12/05/23 11:01 inhesives Allergy Severe Swelling Uncoded 12/05/23 11:01 of Lip/Tongue/Throat [facility] Disclaimer: The information contained in this section may have been updated after the patient was seen, as this information can be updated by other users. Medical History Dyspnea on exertion FARHEEN (obstructive sleep apnea) Meningioma Seizures Ovarian cyst Breast cancer Hx of thyroid cancer Implantable loop recorder present Tachycardia History of hypertension PTSD (post-traumatic stress disorder) Anxiety Depression Surgical History H/O: knee surgery History of carpal tunnel repair History of cholecystectomy History of abdominal hysterectomy total, [place] Family History Other Anemia Asthma Cancer Coronary artery disease Diabetes FHx: mental illness Heart attack Hyperlipidemia Hypertension Thyroid disorder Social History Smoking Status: Former smoker tobacco type: cigarettes packs per day: 0 alcohol intake: never counseling provided: none substance use type: denies use current occupational status: employed Travel in the last 8 weeks: None household members: significant other housing: house 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 No double vision on exam) Neck Neck exam: Present normal inspection, full ROM and trachea midline Respiratory Respiratory exam: Present normal lung sounds bilaterally; Absent respiratory distress, wheezes, stridor, accessory muscle use or prolonged expiratory phase Cardiovascular Cardiovascular exam: Present regular rate, normal rhythm and other (Pulses equal symmetric in upper and lower extremities) Abdominal Exam Abdominal exam: Present soft; Absent distention, tenderness or pulsatile mass Extremities Exam Extremities exam: Absent edema Neurological Exam Neurological exam: Present alert, oriented X3, CN II-XII intact and normal gait; Absent motor sensory deficit Skin Skin exam: Present warm and dry; Absent diaphoresis or erythema Medical Decision Making Medical Records Medical records reviewed: Yes I reviewed the patient's medical records. Screening: Per USPSTF and CDC recommendations, given the prevalence of disease in our region, it is our hospital?s policy to screen for HIV and viral Hepatitis for all patients aged 18 and over and those with ongoing risk factors. [place] Inquiry Pt receiving controlled substance: No [place] was queried for this patient: No Vital Signs: 12/09/23 19:47 12/09/23 20:30 Temperature 98.2 F Temperature Source Oral Pulse Rate 61 Pulse Rate [Right] 63 Respiratory Rate 18 Blood Pressure 113/70 Blood Pressure [Right Arm] 118/78 Blood Pressure Mean [Right Arm] 91 02 Sat by Pulse Oximetry 98 97 Oxygen Delivery Method Room Air Orders (Tests/Meds): ED MEDICATIONS Discontinued Medications Generic Name Dose Route Start Last Admin Trade Name Lewis PRN Reason Stop Dose Admin Acetaminophen 1,000 mg 12/09/23 20:15 12/09/23 20:25 Acetaminophen 500mg Tab PO 12/09/23 20:16 1,000 mg ONCE ONE Administration Dexamethasone Sodium Phosphate 10 mg 12/09/23 20:15 12/09/23 20:24 Dexamethasone 4mg/Ml 1ml Vial IV 12/09/23 20:16 10 mg ONCE ONE Administration Diphenhydramine HCl 25 mg 12/09/23 20:15 12/09/23 20:25 Diphenhydramine 50mg/Ml Vial IV 12/09/23 20:16 25 mg ONCE ONE Administration Ketorolac Tromethamine 15 mg 12/09/23 20:15 12/09/23 20:25 Ketorolac 30mg/Ml Vial IV 12/09/23 20:16 15 mg ONCE ONE Administration Prochlorperazine Edisylate 10 mg 12/09/23 20:15 12/09/23 20:24 Prochlorperazine 10mg/2ml Vial IV 12/09/23 20:16 10 mg ONCE ONE Administration Medical Decision Narrative: 48-year-old female history of hypertension, meningioma, headaches, anxiety, depression presenting with headache. Patient states that headache started today. She was not doing anything in particular. Thinks it may be related to her brain tumor, which she is not currently following with anyone for. Headache is in the crown of her head, no associated neurologic deficits. Its mild in intensity, not photophobic or phonophobic. No neck stiffness, or any other concerns. History was obtained via conversation with patient. On arrival, patient hemodynamically stable, alert, oriented x4, appropriate, GCS 15, moving all extremities spontaneously, pupils equal and reactive to light. Full physical exam performed and significant for very well-appearing female who is in no acute distress speaking in full sentences. Differential includes headache, migraine, among others. Patient was placed in observation beginning at 8 PM in order to give meds and determine need for admission versus home-going. The patient was provided migraine cocktail while awaiting results. On reevaluation, patient stated she feels much better, asymptomatic at this time. At this time, I feel patient is appropriate for discharge. Labs and imaging were considered, but not deemed necessary given complete resolution. Total observation time 2.5 hours. Because patient at baseline without signs or symptoms of clinical decompensation, deemed appropriate for discharge. I discussed my clinical impression with patient and answered all questions. At this time, the evidence for any other entities in the differential is insufficient to warrant any further testing or ED observation. This was explained as well. Advisory was given that persistent or worsening symptoms require further evaluation. I confirmed the understanding of this discussion. [employer] disclaimer Much of this encounter note is an electronic mortar worker spoken language to printed text. Electronic mortar worker of the spoken language may permit errors. Although I have reviewed the note, some errors may still exist. Critical Care Critical Care Time Critical Care Time: No
== END 2023-12-09 23:01 | disposition home or self-care (01) ==
PROVIDERS: Emergency Provider Emergency Medicine; PCP Family Medicine
DX: R51.9 Headache, unspecified (principal)
CPT/HCPCS: 96374; 96375; 99282; J0780; J1100; J1200; J1885

== ENCOUNTER 2023-12-10 10:45 | Outpatient (CLI) | payer OTHER, SELFPAY ==
--- NOTE | 2023-12-10 10:49 | CA_ITS ---
APPROVED REPORT EXAM: Limited 2D Echocardiogram Kiln Operator: Ciara Owens CRT Ht: 5 ft 3 in Wt: 226lbs BSA: 2.04 BP: 133/77 mmHg Indications: pericardial effusion check M-Mode Dimensions RVDd 1.69 cm (0.9-2.6) LA Diam 3.34 cm (1.9-4.0) LVDd 5.26 cm (3.5-5.7) LVDs 3.57 cm (3.5-5.7) IVSd 1.06 cm (0.6-1.1) PWd 0.69 cm (0.6-1.1) EF (Teich) 59.90% FS 32.10% EDV (Teich) 133.00 mL ESV (Teich) 53.30 mL Other Information Study Quality: Technically Difficult Conclusion This is a limited TTE to evaluate for pericardial effusion. Limited windows were obtained. Technically difficult study. There is no evidence of pericardial effusion in the available views. Compared to prior study from 09/2023, the previously visualized anterior pericardial effusion is no longer present. Electronically signed by : Christy Harrison MD 12/11/2023 11:49:47
== END 2023-12-10 23:59 | disposition home or self-care (01) ==
LOC: RT 10:46
PROVIDERS: PCP Family Medicine; Visit Provider Internal Medicine
DX: I31.39 Other pericardial effusion (noninflammatory) (principal); I47.10 Supraventricular tachycardia, unspecified; R06.09 Other forms of dyspnea; R42 Dizziness and giddiness; R55 Syncope and collapse
CPT/HCPCS: 93308

== ENCOUNTER 2023-12-18 12:47 | Outpatient (CLI) | payer OTHER, SELFPAY | END 2023-12-18 23:59 | disposition home or self-care (01) | LOC: RAD 12:48 | PROVIDERS: PCP Family Medicine; Visit Provider Nurse Practitioner | DX: E03.9 Hypothyroidism, unspecified (principal) ==

== ENCOUNTER 2024-01-05 11:46 | Emergency (ER) | payer MEDICAID, SELFPAY ==
[2024-01-05 12:38] VITALS: BP 112/72; PULSE 64; RESP 18; TEMP 36.9; O2SAT 98; BMI 42.7
--- NOTE | 2024-01-05 12:44 | EXP.UTC ---
Discharge Plan Disposition Patient Disposition: Home, Self-Care Condition: Good Prescriptions Prescriptions: New mupirocin 2 % ointment 1 applic topical TID 10 Days Qty: 15 0RF Rx Instructions: apply to area as directed sulfamethoxazole-trimethoprim [Bactrim DS] 800-160 mg tablet 1 tab PO BID Qty: 20 0RF cephalexin 500 mg tablet 500 mg PO QID 7 Days Qty: 28 0RF No Action atorvastatin [Lipitor] 20 mg tablet 20 mg PO DAILY Qty: 90 3RF trazodone 100 mg tablet 100 mg PO HS Patient Comments: TAKE 2 TABLETS BY MOUTH NIGHTLY NEEDED FOR SLEEP estradiol 1 mg tablet 1 mg PO DAILY escitalopram oxalate 20 mg tablet 20 mg PO DAILY buspirone 10 mg tablet 10 mg PO TID levocetirizine [Xyzal] 5 mg tablet 5 mg PO DAILY Qty: 30 2RF Referrals Follow up/Referrals: Gurjit Mena MD [Primary Care Provider] - See instructions Activity Restrictions/Add. Instructions Additional Instructions/Restrictions: *Start antibiotic(s) immediately and be sure to take as ordered for the FULL length of time although you may be feeling better or start to see improvement in the next 24-48 hours *Monitor closely. Outlined redness so that you can monitor easier. Follow up immediately for new or worsening symptoms including but not limited to redness, swelling, streaking from site fever or chills. *Warm compress 15 minutes 3-4 times day *Never squeeze or pop these on your own. Seek immediate medical attention next time this occurs *Monitor Temp. Tylenol every 4 hours as needed and ibuprofen every 6 hours as needed (as long as your primary care doctor has told you that it is ok to take both. For fever, aches, pain. ER if no less that 101 despite Tylenol and ibuprofen ?Follow up with your family doctor/primary care physician in the next 48-72 hours if no improvement Clinical Impressions Clinical Impression: Cellulitis Instructions Patient Instructions: Cellulitis Print Language Print Language: Lithuanian Discharge ED Provider: Cynthia Pike [facility] [place] Stated complaint: spider bite/R Arm Mode of Arrival: Ambulatory Source of Information: Patient Time Seen by Provider: 01/05/24 12:44 Description of Symptoms (Recalled from Triage Doc. by RN): SPIDER BITE ON RIGHT FA HEENT Symptoms (Recalled from RN notes): No Resp Symptoms (Recalled from RN notes): No Skin Symptoms (Recalled from RN notes): Yes MS Symptoms (Recalled from RN notes): No Functional Status (Recalled from RN notes): WNL History of Present Illness Provider Complaint: Patient states that she woke up a couple days ago and noticed a bite on her right forearm States that since then it has got more sore and swollen and now getting red States that she thinks she may have got bitten by a spider Related Data Home Medications ?Medication ?Instructions ?Recorded ?Confirmed estradiol 1 mg tablet 1 mg PO DAILY 08/15/23 01/05/24 trazodone 100 mg tablet 100 mg PO HS 09/04/23 01/05/24 buspirone 10 mg tablet 10 mg PO TID 12/05/23 01/05/24 escitalopram oxalate 20 mg tablet 20 mg PO DAILY 12/05/23 01/05/24 Previous Rx's ?Medication ?Instructions ?Recorded levocetirizine 5 mg tablet (Xyzal) 5 mg PO DAILY #30 tabs 12/10/23 atorvastatin 20 mg tablet (Lipitor) 20 mg PO DAILY #90 tabs 12/15/23 cephalexin 500 mg tablet 500 mg PO QID 7 days #28 tabs 01/05/24 mupirocin 2 % topical ointment 1 applic topical TID 10 days #15 01/05/24 grams sulfamethoxazole 800 1 tab PO BID #20 tabs 01/05/24 mg-trimethoprim 160 mg tablet (Bactrim DS) Allergies Allergy/AdvReac Type Severity Reaction Status Date / Time adhesive tape Allergy Mild Verified 12/19/23 08:32 Worker's Comp Is this a Worker's Comp case?: No PFSH [facility] Disclaimer: The information contained in this section may have been updated after the patient was seen, as this information can be updated by other users. Medical History (Updated 01/05/24 @ 12:53 by Cynthia Pike APRN) Loose left total knee arthroplasty Chronic sinusitis H/O Eustachian tube dysfunction Hearing difficulty of right ear Dyspnea on exertion FARHEEN (obstructive sleep apnea) Meningioma Seizures Ovarian cyst Breast cancer Hx of thyroid cancer Implantable loop recorder present Tachycardia History of hypertension PTSD (post-traumatic stress disorder) Anxiety Depression Surgical History (Updated 12/19/23 @ 10:13 by Colette Gallardo MD) History of partial thyroidectomy History of loop recorder H/O: knee surgery History of carpal tunnel repair History of cholecystectomy History of abdominal hysterectomy Family History Other Anemia Asthma Cancer Coronary artery disease Diabetes FHx: mental illness Heart attack Hyperlipidemia Hypertension Thyroid disorder Social History (Updated 12/19/23 @ 08:36 by ESTHER Casiano) Smoking Status: Former smoker tobacco type: cigarettes packs per day: 0 alcohol intake: current alcohol intake frequency: holidays/special occasions only counseling provided: none substance use type: denies use current occupational status: unemployed Travel in the last 8 weeks: None household members: none housing: house marital status: single number of children: 3 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 current occupational exposures/hazards: No caffeine: No ROS Obtained: Yes All systems reviewed & no additional complaints except as documented and Yes Systems reviewed as appropriate & no additional complaints except as documented Constitutional Constitutional: Reports system reviewed and no additional complaints, except as documented and Reports as per HPI ENT Ears, Nose, Mouth, and Throat: Reports system reviewed and no additional complaints, except as documented Cardiovascular Cardiovascular: Reports system reviewed and no additional complaints, except as documented and Reports as per HPI Respiratory Respiratory: Reports system reviewed and no additional complaints, except as documented and Reports as per HPI Gastrointestinal Gastrointestingal: Reports system reviewed and no additional complaints, except as documented and as per HPI Integumentary/Breasts Skin/Breast: Reports system reviewed and no additional complaints, except as documented, Reports as per HPI and Reports other (? spider bite right forearm) Physical Exam General General appearance: alert and in no apparent distress ENT ENT exam: Present normal exam, normal oropharynx, mucous membranes moist and TM's normal bilaterally Respiratory Respiratory exam: Present normal lung sounds bilaterally; Absent respiratory distress or wheezes Cardiovascular Cardiovascular exam: Present regular rate, normal rhythm and normal heart sounds Neurological Exam Neurological exam: Present alert, oriented X3 and normal gait Skin Skin exam: Present other (patient has red raised warm are on right forearm with surrounding redness) Medical Decision Making Medical Records Screening: Per USPSTF and CDC recommendations, given the prevalence of disease in our region, it is our hospital?s policy to screen for HIV and viral Hepatitis for all patients aged 18 and over and those with ongoing risk factors. [place] Inquiry Pt receiving controlled substance: No [place] was queried for this patient: No Vital Signs: 01/05/24 12:38 Temperature 98.4 F Temperature Source Oral Pulse Rate [Left Radial] 64 Respiratory Rate 18 Blood Pressure [Left Arm] 112/72 Blood Pressure Mean [Left Arm] 85 02 Sat by Pulse Oximetry 98
[2024-01-05 13:00] VITALS: BP 112/72; PULSE 64; RESP 18; TEMP 36.9
== END 2024-01-05 13:01 | disposition home or self-care (01) ==
PROVIDERS: Emergency Provider Nurse Practitioner; PCP Family Medicine
DX: L03.113 Cellulitis of right upper limb (principal)
CPT/HCPCS: 99213; G0381

== ENCOUNTER 2024-01-05 13:06 | Outpatient (CLI) | payer MEDICAID, SELFPAY ==
--- NOTE | 2024-01-05 13:06 | US_ITS ---
FINAL REPORT TECHNIQUE: Ultrasound imaging of the thyroid was obtained. CLINICAL HISTORY: HX OF PARTIAL THYROIDECTOMY FINDINGS: Patient is status post right thyroidectomy. The left thyroid lobe is enlarged and multinodular. Left lobe measures 4.3 x 1.6 cm. Parenchyma is diffusely heterogeneous. There are multiple nodules present measuring up to 1.4 x 1.0 cm which is solid and hypoechoic. There is an adjacent nodule measuring up to 1.2 cm in diameter. IMPRESSION: Multiple nodules in the left lobe of the thyroid measuring less than then 1.4 cm, TR 4. Recommend 1 year follow-up. Reviewed, Interpreted and Dictated by Kiet Donovan MD Transcribed by Sadaf Wylie Authenticated and [facility]
== END 2024-01-05 23:59 | disposition home or self-care (01) ==
LOC: RAD 13:06
PROVIDERS: PCP Family Medicine; Visit Provider Nurse Practitioner
DX: E89.0 Postprocedural hypothyroidism (principal)
CPT/HCPCS: 76536

== ENCOUNTER 2024-01-11 19:08 | Emergency (ER) | payer MEDICAID, SELFPAY ==
[2024-01-11 19:09] VITALS: BP 125/77; PULSE 58; RESP 20; TEMP 36.8; O2SAT 97; BMI 40.7
--- NOTE | 2024-01-11 19:37 | ED_ITS ---
Discharge Plan Disposition Patient Disposition: Home, Self-Care Condition: Good Prescriptions Prescriptions: New methylprednisolone [Medrol (Bertram)] 4 mg tablets,dose pack 4 mg PO DAILY Qty: 21 0RF No Action atorvastatin [Lipitor] 20 mg tablet 20 mg PO DAILY Qty: 90 3RF trazodone 100 mg tablet 100 mg PO HS Patient Comments: TAKE 2 TABLETS BY MOUTH NIGHTLY NEEDED FOR SLEEP estradiol 1 mg tablet 1 mg PO DAILY escitalopram oxalate 20 mg tablet 20 mg PO DAILY buspirone 10 mg tablet 10 mg PO TID levocetirizine [Xyzal] 5 mg tablet 5 mg PO DAILY Qty: 30 2RF mupirocin 2 % ointment 1 applic topical TID 10 Days Qty: 15 0RF Rx Instructions: apply to area as directed sulfamethoxazole-trimethoprim [Bactrim DS] 800-160 mg tablet 1 tab PO BID Qty: 20 0RF cephalexin 500 mg tablet 500 mg PO QID 7 Days Qty: 28 0RF Referrals Follow up/Referrals: Gurjit Mena MD [Primary Care Provider] - See instructions Activity Restrictions/Add. Instructions Additional Instructions/Restrictions: You were seen for a rash. Please follow up with your PCP this week. Return for any fever or increased pain. Clinical Impressions Clinical Impression: Rash Stand Alone Forms Stand Alone Forms: Work/School Release Instructions Patient Instructions: DI for Skin Abscess Print Language Print Language: Gambian Discharge ED Provider: Doni Nava General Adult HPI <VAL Eaton - Last Filed: 01/11/24 21:16> General Chief complaint: Skin/Abscess/Foreign Body Stated complaint: spider bite on right arm Time Seen by Provider: 01/11/24 19:18 Mode of Arrival: Ambulatory Source of Information: Patient Limitations: No Limitations Description of Symptoms (Recalled from ER Triage Doc. by RN): pt reports a spider bite on the right forearm 2-3 weeks ago, pt has been seen by other providers previously and given antibiotics but today the redness became bigger and pt reports it now feels hot. History of Present Illness HPI narrative: Patient presents with right upper extremity edema, erythema and burning. She reports that 2 to 3 weeks ago she woke up with what she was concerned was a spider bite. Her PCP has treated her with Keflex, Bactrim, mupirocin, bacitracin. complaint: spider bite Onset (ago): week(s) Location: upper extremity Radiation: non-radiation Severity: mild Quality: burning Consistency: constant Relieving factors: none Exacerbating factors: none Associated symptoms: negative fever/chills Treatments prior to arrival: other (Antibiotics ) Related Data Home Medications ?Medication ?Instructions ?Recorded ?Confirmed estradiol 1 mg tablet 1 mg PO DAILY 08/15/23 01/05/24 trazodone 100 mg tablet 100 mg PO HS 09/04/23 01/05/24 buspirone 10 mg tablet 10 mg PO TID 12/05/23 01/05/24 escitalopram oxalate 20 mg tablet 20 mg PO DAILY 12/05/23 01/05/24 Previous Rx's ?Medication ?Instructions ?Recorded levocetirizine 5 mg tablet (Xyzal) 5 mg PO DAILY #30 tabs 12/10/23 atorvastatin 20 mg tablet (Lipitor) 20 mg PO DAILY #90 tabs 12/15/23 cephalexin 500 mg tablet 500 mg PO QID 7 days #28 tabs 01/05/24 mupirocin 2 % topical ointment 1 applic topical TID 10 days #15 01/05/24 grams sulfamethoxazole 800 1 tab PO BID #20 tabs 01/05/24 mg-trimethoprim 160 mg tablet (Bactrim DS) methylprednisolone 4 mg tablets in 4 mg PO DAILY #21 tabs 01/11/24 a dose pack (Medrol (Bertram)) Allergies Allergy/AdvReac Type Severity Reaction Status Date / Time adhesive tape Allergy Mild Verified 12/19/23 08:32 PENDING SALE TO [facility] <VAL Eaton - Last Filed: 01/11/24 21:16> PENDING SALE TO [facility] Disclaimer: The information contained in this section may have been updated after the patient was seen, as this information can be updated by other users. Medical History (Updated 01/11/24 @ 20:56 by VAL Eaton) Loose left total knee arthroplasty Chronic sinusitis H/O Eustachian tube dysfunction Hearing difficulty of right ear Dyspnea on exertion FARHEEN (obstructive sleep apnea) Meningioma Seizures Ovarian cyst Breast cancer Hx of thyroid cancer Implantable loop recorder present Tachycardia History of hypertension PTSD (post-traumatic stress disorder) Anxiety Depression Surgical History (Updated 12/19/23 @ 10:13 by Colette Gallardo MD) History of partial thyroidectomy History of loop recorder H/O: knee surgery History of carpal tunnel repair History of cholecystectomy History of abdominal hysterectomy Family History Other Anemia Asthma Cancer Coronary artery disease Diabetes FHx: mental illness Heart attack Hyperlipidemia Hypertension Thyroid disorder Social History (Updated 01/11/24 @ 21:16 by VAL Eaton) Smoking Status: Former smoker tobacco type: cigarettes packs per day: 0 alcohol intake: current alcohol intake frequency: holidays/special occasions only counseling provided: none substance use type: denies use current occupational status: unemployed Travel in the last 8 weeks: None household members: none housing: house marital status: single number of children: 3 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 current occupational exposures/hazards: No caffeine: No Other Medical History Have you received the Flu Vaccine for this season: Yes Have you received the Pneumonia Vaccine: Yes <VAL Eaton - Last Filed: 01/11/24 21:16> ROS Obtained: Yes All systems reviewed & no additional complaints except as documented Physical Exam <VAL Eaton - Last Filed: 01/11/24 21:16> General General appearance: alert and in no apparent distress Head Head exam: atraumatic and normocephalic Eye Eye exam: Present normal appearance and EOMI Chest Chest inspection: Present symmetric chest wall rise Respiratory Respiratory exam: Present normal lung sounds bilaterally; Absent wheezes or stridor Cardiovascular Cardiovascular exam: Present regular rate and normal rhythm; Absent systolic murmur Extremities Exam Extremities exam: Present full ROM Neurological Exam Neurological exam: Present alert and oriented X3 Psychiatric Psychiatric exam: Present normal affect and normal mood Skin Skin exam: Present warm, dry, intact and other (RUE 3 cm area of slight erythematous rash, rough in texture, slightly raised ) Medical Decision Making <VAL Eaton - Last Filed: 01/11/24 21:16> Medical Records Screening: Per USPSTF and CDC recommendations, given the prevalence of disease in our region, it is our hospital?s policy to screen for HIV and viral Hepatitis for all patients aged 18 and over and those with ongoing risk factors. [place] Inquiry Pt receiving controlled substance: No Vital Signs: 01/11/24 19:09 01/11/24 20:59 Temperature 98.2 F 97.8 F Temperature Source Oral Oral Pulse Rate 79 Pulse Rate [Right] 58 L Respiratory Rate 20 20 Blood Pressure 123/82 Blood Pressure [Right Arm] 125/77 Blood Pressure Mean [Right Arm] 93 02 Sat by Pulse Oximetry 97 Oxygen Delivery Method Room Air Room Air Orders (Tests/Meds): ORDERS Category Date Time Status POCUS Point of Care (ER Only) Stat Exams 01/11/24 19:43 Completed Medical Decision Narrative: In summary patient is a 48-year-old who presents the emergency department for evaluation of right upper extremity redness. Patient is hemodynamically stable upon arrival, afebrile. Mild erythema on exam. Differential diagnosis includes cellulitis, abscess, rash secondary to bandages and topical antibiotic. Initial workup will be conducted with POCUS exam. Ultrasound does not reveal any cobblestoning, fluid collection or other evidence of cellulitis/abscess. Given this I feel this is likely allergic, advised topical Benadryl and will start Medrol Dosepak. Follow-up with PCP for recheck this week.. <Doni Nava MD - Last Filed: 01/11/24 21:43> Vital Signs: 01/11/24 19:09 01/11/24 20:59 Temperature 98.2 F 97.8 F Temperature Source Oral Oral Pulse Rate 79 Pulse Rate [Right] 58 L Respiratory Rate 20 20 Blood Pressure 123/82 Blood Pressure [Right Arm] 125/77 Blood Pressure Mean [Right Arm] 93 02 Sat by Pulse Oximetry 97 Oxygen Delivery Method Room Air Room Air Orders (Tests/Meds): ORDERS Category Date Time Status POCUS Point of Care (ER Only) Stat Exams 01/11/24 19:43 Completed Medical Decision Narrative: In summary patient is a 48-year-old who presents the emergency department for evaluation of right upper extremity redness. Patient is hemodynamically stable upon arrival, afebrile. Mild erythema on exam. Differential diagnosis includes cellulitis, abscess, rash secondary to bandages and topical antibiotic. Initial workup will be conducted with POCUS exam. Ultrasound does not reveal any cobblestoning, fluid collection or other evidence of cellulitis/abscess. Given this I feel this is likely allergic, advised topical Benadryl and will start Medrol Dosepak. Follow-up with PCP for recheck this week.. I was consulted by the ANDERS, and we discussed the complexity of the problems being addressed. I approved the treatment and management plan for this patient's care in the Emergency Department, thus performing a substantive portion of the medical decision making. Doni Nava MD Procedures <Doni Nava MD - Last Filed: 01/11/24 21:43> Limited Ultrasound Indication:: Limited soft tissue ultrasound Indication: Soft tissue redness Identified structures: Location: Right upper extremity Findings: -Normal soft tissue ultrasound Impression: -Normal limited soft tissue ultrasound Images were saved to permanent archive The study was technically adequate Soft Tissue CPT Codes: CPT Neck: 20608-62 CPT Upper extremity: 85470-57 CPT Axilla: 27483-08 CPT Chest wall: 88480-98 CPT Breast: 27182-75-YE/LT (complete), 35891-44-MK/LT (limited), CPT Upper Back: 56047-81 CPT Lower Back: 13717-43 CPT Abdominal Wall: 11239-90 CPT Pelvic Wall: 69421-62 CPT Lower Extremity: 41518-67 CPT Other Soft Tissue: 68621-77 This study was performed by me, and I personally interpreted all images/videos. Based on my clinical judgement, these images were adequate and did not necessitate further imaging. Critical Care <VAL Eaton - Last Filed: 01/11/24 21:16> Critical Care Time Critical Care Time: No
[2024-01-11 20:59] VITALS: BP 123/82; PULSE 79; RESP 20; TEMP 36.6; O2SAT 99
== END 2024-01-11 21:03 | disposition home or self-care (01) ==
PROVIDERS: Emergency Provider Emergency Medicine; PCP Family Medicine
DX: R21 Rash and other nonspecific skin eruption (principal)
CPT/HCPCS: 99283

== ENCOUNTER 2024-01-14 10:53 | Outpatient (CLI) | payer MEDICAID, SELFPAY ==
[2024-01-14 12:11] LABS: Chloride 104 mmol/L (98-107); Potassium 4.1 mmoL/L (3.5-5.1); Sodium 137 mmol/L (136-145)
[2024-01-14 12:13] LABS: Blood Urea Nitrogen 9 mg/dl (7-17); Estimated Glomerular Filt Rate 59 ml/min (>60); GFR (African American) 72 ML/MIN (>60)
[2024-01-14 12:14] LABS: Anion Gap 14.1 mEq/L (5-15); Calcium 9.3 mg/dl (8.4-10.2); Carbon Dioxide 23 mmol/L (22.0-30.0); Glucose 103 mg/dl (74-100); Iron 71 ug/dL (37-170)
[2024-01-14 12:23] LABS: Total Iron Binding Capacity 350 ug/dL (265-497)
[2024-01-14 12:33] LABS: Free T4 (Free Thyroxine) 0.88 ng/dl (0.78-2.19)
[2024-01-14 12:35] LABS: 25-OH Vitamin D, Total 35.2 ng/mL (30-100)
[2024-01-14 12:45] LABS: Thyroid Stimulating Hormone 2.48 uIU/mL (0.465-4.68)
[2024-01-14 12:49] LABS: Ferritin 45.1 ng/ml (6.24-137)
[2024-01-14 13:25] LABS: Intact Parathyroid Hormone 88.4 pg/mL (7.5-53.5)
== END 2024-01-14 23:59 | disposition home or self-care (01) ==
LOC: LAB 10:54
PROVIDERS: PCP Family Medicine; Visit Provider Internal Medicine
DX: R79.89 Other specified abnormal findings of blood chemistry (principal); E89.0 Postprocedural hypothyroidism; R06.09 Other forms of dyspnea; R07.89 Other chest pain; Z79.890 Hormone replacement therapy
CPT/HCPCS: 36415; 80048; 82306; 82728; 83540; 83550; 83970; 84439; 84443

== ENCOUNTER 2024-01-22 19:47 | Emergency (ER) | payer MEDICAID, SELFPAY ==
[2024-01-22 19:47] VITALS: BP 125/82; PULSE 68; RESP 18; TEMP 37; O2SAT 97; BMI 40.7
--- NOTE | 2024-01-22 19:52 | XR_ITS ---
PROCEDURE INFORMATION: Exam: XR Left Knee Exam date and time: 01/22/2024 8:04 PM Age: 48 years old Clinical indication: Pain; Knee; Left; Additional info: Non traumatic pop and pain TECHNIQUE: Imaging protocol: Radiologic exam of the left knee. Views: 3 views. COMPARISON: No relevant prior studies available. FINDINGS: Bones/joints: Osseous alignment is normal. No acute fracture. No significant arthritic change. Small orthopedic plate noted adjacent to the medial tibial metaphysis. Soft tissues: Normal. IMPRESSION: No acute abnormality
--- NOTE | 2024-01-22 19:53 | [facility].EDGENADL ---
Discharge Plan Disposition Patient Disposition: Home, Self-Care Prescriptions Prescriptions: No Action atorvastatin [Lipitor] 20 mg tablet 20 mg PO DAILY Qty: 90 3RF doxycycline hyclate 100 mg tablet 100 mg PO BID Qty: 20 0RF betamethasone dipropionate 0.05 % cream 1 applic topical BID Qty: 15 1RF trazodone 100 mg tablet 100 mg PO HS Patient Comments: TAKE 2 TABLETS BY MOUTH NIGHTLY NEEDED FOR SLEEP estradiol 1 mg tablet 1 mg PO DAILY escitalopram oxalate 20 mg tablet 20 mg PO DAILY buspirone 10 mg tablet 10 mg PO TID levocetirizine [Xyzal] 5 mg tablet 5 mg PO DAILY Qty: 30 2RF methylprednisolone [Medrol (Bertram)] 4 mg tablets,dose pack 4 mg PO DAILY Qty: 21 0RF Referrals Follow up/Referrals: Gurjit Mena MD [Primary Care Provider] - See instructions Activity Restrictions/Add. Instructions Additional Instructions/Restrictions: Wear your Solis wrap or your knee brace as discussed please follow-up with your orthopedic surgeon if you continue to have symptoms for consideration for an outpatient MRI however there is no evidence of a fracture or dislocation or any bony abnormality on your x-ray today. You may take ibuprofen, 800 mg 3 times a day with food over the next several days also I would ice and elevate your knee. Clinical Impressions Clinical Impression: Strain of left knee Stand Alone Forms Stand Alone Forms: Work/School Release Print Language Print Language: Yi Discharge ED Provider: Tia Casanova General Adult HPI General Chief complaint: PAIN Stated complaint: Pain in leg Time Seen by Provider: 01/22/24 19:47 Mode of Arrival: EMS Source of Information: Patient and EMS Limitations: No Limitations Description of Symptoms (Recalled from ER Triage Doc. by RN): Patient presents to ED via [facility] with pain in his left knee. Patient states she was standing at the sink washing her hair and she heard a 'pop' from her left knee. Patient rates pain 5/10 at this time. Patient reports knee surgery in July 2023. History of Present Illness HPI narrative: Patient is a 48-year-old who presents today with left knee pain. She states that she was bending over a washing her hair at a sink when she felt her knee get out from her and pop. Since that time she has had severe pain. She does have range of motion and is able to lifted up off the bed from historical standpoint. She states that she had knee surgery in July earlier this year for a meniscal injury by an orthopedic office in [facility]. Related Data Home Medications ?Medication ?Instructions ?Recorded ?Confirmed estradiol 1 mg tablet 1 mg PO DAILY 08/15/23 01/13/24 trazodone 100 mg tablet 100 mg PO HS 09/04/23 01/13/24 buspirone 10 mg tablet 10 mg PO TID 12/05/23 01/13/24 escitalopram oxalate 20 mg tablet 20 mg PO DAILY 12/05/23 01/13/24 Previous Rx's ?Medication ?Instructions ?Recorded levocetirizine 5 mg tablet (Xyzal) 5 mg PO DAILY #30 tabs 12/10/23 atorvastatin 20 mg tablet (Lipitor) 20 mg PO DAILY #90 tabs 12/15/23 methylprednisolone 4 mg tablets in 4 mg PO DAILY #21 tabs 01/11/24 a dose pack (Medrol (Bertram)) betamethasone dipropionate 0.05 % 1 applic topical BID #15 grams 01/12/24 topical cream doxycycline hyclate 100 mg tablet 100 mg PO BID #20 tabs 01/12/24 Allergies Allergy/AdvReac Type Severity Reaction Status Date / Time adhesive tape Allergy Mild Verified 01/13/24 13:07 [facility] Disclaimer: The information contained in this section may have been updated after the patient was seen, as this information can be updated by other users. Medical History Loose left total knee arthroplasty Chronic sinusitis H/O Eustachian tube dysfunction Hearing difficulty of right ear Dyspnea on exertion FARHEEN (obstructive sleep apnea) Meningioma Seizures Ovarian cyst Breast cancer Hx of thyroid cancer Implantable loop recorder present Tachycardia History of hypertension PTSD (post-traumatic stress disorder) Anxiety Depression Surgical History History of partial thyroidectomy History of loop recorder H/O: knee surgery History of carpal tunnel repair History of cholecystectomy History of abdominal hysterectomy total, [place] Family History Other Anemia Asthma Cancer Coronary artery disease Diabetes FHx: mental illness Heart attack Hyperlipidemia Hypertension Thyroid disorder Social History Smoking Status: Never smoker alcohol intake: current alcohol intake frequency: holidays/special occasions only counseling provided: none substance use type: denies use current occupational status: unemployed Travel in the last 8 weeks: None household members: none housing: house marital status: single number of children: 3 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 current occupational exposures/hazards: No caffeine: No Other Medical History Have you received the Flu Vaccine for this season: Yes Have you received the Pneumonia Vaccine: Yes ROS Obtained: Yes All systems reviewed & no additional complaints except as documented Physical Exam General General appearance: alert and in no apparent distress Respiratory Respiratory exam: Present normal lung sounds bilaterally Cardiovascular Cardiovascular exam: Present regular rate Extremities Exam Extremities exam: Present other (The patient has normal range of motion normal neurovascular exam distal to the injury no evidence of an effusion ligamental exam is unremarkable without significant laxity) Neurological Exam Neurological exam: Present alert and oriented X3 Medical Decision Making Medical Records Screening: Per USPSTF and CDC recommendations, given the prevalence of disease in our region, it is our hospital?s policy to screen for HIV and viral Hepatitis for all patients aged 18 and over and those with ongoing risk factors. [place] Inquiry Pt receiving controlled substance: No Vital Signs: 01/22/24 19:47 Temperature 98.6 F Temperature Source Oral Pulse Rate [Right Brachial] 68 Respiratory Rate 18 Blood Pressure [Right Arm] 125/82 Blood Pressure Mean [Right Arm] 96 Blood Pressure Source [Right Arm] Automatic Cuff Blood Pressure Position [Right Arm] Supine 02 Sat by Pulse Oximetry 97 Oxygen Delivery Method Room Air Orders (Tests/Meds): ED MEDICATIONS Discontinued Medications Generic Name Dose Route Start Last Admin Trade Name Lewis PRN Reason Stop Dose Admin Ibuprofen 800 mg 01/22/24 19:53 01/22/24 20:05 Ibuprofen 400 Mg Tablet PO 01/22/24 19:54 800 mg ONCE ONE Administration ORDERS Category Date Time Status Knee XR left 3 views [XR knee LT 3V] Stat Exams 01/22/24 19:52 Taken Medical Decision Narrative: 48-year-old with above history and physical differential includes ligamental strain or tear occult fracture dislocation etc. P will get a plain film this unlikely to find any pathology her exam objectively is normal. However given her body habitus it is very difficult to feel an effusion or ligamental laxity and will recommend that she follow-up with her orthopedic surgeon for an outpatient MRI if she continues to be symptomatic. X-rays performed which I personally interpreted which show no evidence of fracture or dislocation patient was given an Solis wrap able to bear weight supportive care discussed she has been advised to follow-up with her primary care doctor or orthopedic surgeon if she has persistent symptoms for consideration of an outpatient MRI to further evaluate for ligamentous or meniscal injuries particular given her history. She was discharged in stable condition. Critical Care Critical Care Time Critical Care Time: No
[2024-01-22] MEDS: IBUPROFEN 400 MG TABLET 800 MG PO (20:05)
[2024-01-22 20:47] VITALS: BP 109/75; PULSE 86; RESP 16; TEMP 36.8; O2SAT 98
== END 2024-01-22 20:58 | disposition home or self-care (01) ==
PROVIDERS: Emergency Provider Student in an Organized Health Care Education/Training Program; PCP Family Medicine
DX: S86.912A Strain of unspecified muscle(s) and tendon(s) at lower leg level, left leg, initial encounter (principal); M25.562 Pain in left knee; X50.1XXA Overexertion from prolonged static or awkward postures, initial encounter; Y93.89 Activity, other specified; Y92.008 Other place in unspecified non-institutional (private) residence as the place of occurrence of the external cause
CPT/HCPCS: 73562; 99283

== ENCOUNTER → 2024-01-26 10:58 | Outpatient (CLI) | payer MEDICAID, SELFPAY | LOC: SL 11:01 → RT 11:04 → SL 11:05 | PROVIDERS: PCP Family Medicine; Visit Provider Internal Medicine Pulmonary Disease | DX: G47.33 Obstructive sleep apnea (adult) (pediatric) (principal) | CPT/HCPCS: 94762 ==

== ENCOUNTER 2024-02-13 15:12 | Emergency (ER) | payer MEDICAID, SELFPAY ==
[2024-02-13 15:13] VITALS: BP 137/84; PULSE 60; RESP 18; TEMP 36.5; O2SAT 98; BMI 40.7
[2024-02-13 17:20] VITALS: BP 137/84; PULSE 60; RESP 18; TEMP 36.5; O2SAT 98
== END 2024-02-13 17:20 | disposition left against medical advice (07) ==
LOC: ER 16:31
PROVIDERS: Emergency Provider Emergency Medicine; PCP Family Medicine
DX: Z53.29 Procedure and treatment not carried out because of patient's decision for other reasons (principal); K92.1 Melena
CPT/HCPCS: 99281

== ENCOUNTER 2024-03-27 10:15 | Emergency (ER) | payer MEDICAID, SELFPAY ==
[2024-03-27] VITALS (7 sets, daily range): BP systolic 112–125; BP diastolic 62–85; PULSE 57–68; RESP 11–19; TEMP 36.5; O2SAT 93–99; BMI 39.4
--- NOTE | 2024-03-27 10:24 | ECG_ITS ---
APPROVED REPORT Exam: Resting ECG HR:60 bpm ECG Measurements Heart Rate 60 AXES VT 191 P 43 QRSd 105 QRS 14 QT 423 T 2 QTc 425 Conclusion SINUS RHYTHM LOW QRS VOLTAGE IN PRECORDIAL LEADS [QRS DEFLECTION < 1.0 mV IN CHEST LEADS] INCOMPLETE RIGHT BUNDLE BRANCH BLOCK [90+ ms QRS DURATION, TERMINAL R IN V1/V2, 40+ ms S IN I/aVL/V4/V5/V6] NONSPECIFIC T-WAVE ABNORMALITY BORDERLINE ECG Electronically signed by : MIYA HOUSTON, 03/28/2024 08:14:53
--- NOTE | 2024-03-27 10:30 | XR_ITS ---
PROCEDURE INFORMATION: Exam: XR Chest Exam date and time: 03/27/2024 10:42 AM Age: 48 years old Clinical indication: Cough; Additional info: Cough multiple weeks TECHNIQUE: Imaging protocol: Radiologic exam of the chest. Views: 2 views. COMPARISON: [id number] CT abdomen pelvis wo/w con 08/14/2017 10:54 AM FINDINGS: Tubes, catheters and devices: Loop recorder at the left anterior chest wall. Lungs: Lungs are clear. No pulmonary edema or consolidation. Pleural spaces: No pleural effusion. No pneumothorax. Heart/Mediastinum: Cardiomediastinal silhouette is normal. Bones/joints: No acute abnormality. IMPRESSION: No acute findings.
--- NOTE | 2024-03-27 10:32 | ED_ITS ---
Discharge Plan Disposition Patient Disposition: Home, Self-Care Condition: Good Prescriptions Prescriptions: New dextromethorphan-guaifenesin 20-400 mg tablet 1 tab PO Q8H PRN (Reason: cough) Qty: 7 0RF No Action atorvastatin [Lipitor] 20 mg tablet 20 mg PO DAILY Qty: 90 3RF trazodone 100 mg tablet 100 mg PO HS Patient Comments: TAKE 2 TABLETS BY MOUTH NIGHTLY NEEDED FOR SLEEP estradiol 1 mg tablet 1 mg PO DAILY levocetirizine [Xyzal] 5 mg tablet 5 mg PO DAILY Qty: 30 2RF Referrals Follow up/Referrals: Gurjit Mena MD [Primary Care Provider] - See instructions Activity Restrictions/Add. Instructions Additional Instructions/Restrictions: You were evaluated in the ER and are appropriate for discharge at this time. Take the prescribed guaifenesin if needed for cough. Continue taking other home medications as previously prescribed. Follow-up with the cardiology clinic at 1 PM on 03/29/2024 this will be with Dr. Harrison. Return to the ER with new, worsening, or otherwise concerning symptoms. Clinical Impressions Clinical Impression: Cough, Chest pain Instructions Patient Instructions: DI for Cough -- Adult Print Language Print Language: Armenian Discharge ED Provider: Tanner Brown General Chief Complaint: Chest Pain Stated Complaint: cough chest tightness Time Seen by Provider: 03/27/24 10:22 History of Present Illness HPI narrative: 48-year-old female who reports having a loop recorder that currently is not working appropriately but is supposed to be assessing her for tachycardia/bradycardia, also has history of migraines, seizure, sleep apnea, presents to the ER with concerns of cough, congestion, body aches, and she reports chest pain after coughing episodes. She states her chest is sore everywhere. Reportedly she has been having the same cough for multiple weeks but with her soreness in the chest and persistent cough she decided to come to the ER for further evaluation. Patient has not had any syncopal episodes, no nausea, and, diarrhea, no headache or dizziness, no numbness, tingling, or weakness. Patient has not had any immediate new sick exposures that she knows of. She and family are worried about possible pneumonia. Related Data Home Medications ?Medication ?Instructions ?Recorded ?Confirmed estradiol 1 mg tablet 1 mg PO DAILY 08/15/23 03/27/24 trazodone 100 mg tablet 100 mg PO HS 09/04/23 03/27/24 Previous Rx's ?Medication ?Instructions ?Recorded levocetirizine 5 mg tablet (Xyzal) 5 mg PO DAILY #30 tabs 12/10/23 atorvastatin 20 mg tablet (Lipitor) 20 mg PO DAILY #90 tabs 12/15/23 dextromethorphan-guaifenesin 20 1 tab PO Q8H PRN cough #7 tabs 03/27/24 mg-400 mg tablet Allergies Allergy/AdvReac Type Severity Reaction Status Date / Time adhesive tape Allergy Mild Verified 01/30/24 12:54 [facility] Disclaimer: The information contained in this section may have been updated after the patient was seen, as this information can be updated by other users. Medical History Sleep apnea Thyroid Nodule Hearing loss in right ear Loose left total knee arthroplasty Chronic sinusitis H/O Eustachian tube dysfunction Hearing difficulty of right ear Dyspnea on exertion FARHEEN (obstructive sleep apnea) Meningioma Seizures Ovarian cyst Breast cancer Hx of thyroid cancer Implantable loop recorder present Tachycardia History of hypertension PTSD (post-traumatic stress disorder) Anxiety Depression Surgical History History of partial thyroidectomy History of loop recorder H/O: knee surgery History of carpal tunnel repair History of cholecystectomy History of abdominal hysterectomy total, [place] Family History Other Anemia Asthma Cancer Coronary artery disease Diabetes FHx: mental illness Heart attack Hyperlipidemia Hypertension Thyroid disorder Social History Smoking Status: Former smoker tobacco type: cigarettes packs per day: 0 alcohol intake: current alcohol intake frequency: holidays/special occasions only counseling provided: none substance use type: denies use current occupational status: unemployed Travel in the last 8 weeks: None household members: none housing: house marital status: single number of children: 3 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 current occupational exposures/hazards: No caffeine: No Have you lived/traveled outside [place] in past 30 days?: No Contact w/someone who lives/traveled outside US past 30 days?: No Exposure to someone with infectious disease in past 14 days?: No Do you have a fever (greater than 100.4 F or 38 C)?: No Have you tested positive for COVID-19: No Exposed to someone with COVID-19 in past 14 days?: No Do you have a sore throat?: No Do you have a cough?: Yes Do you have any weakness?: No Do you have any diarrhea?: No Are you experiencing any unusual bleeding?: No Do you have any muscle aches/pain?: No Do you have any abdominal pain?: No Are you experiencing loss of taste or smell?: No Other Medical History Have you received the Flu Vaccine for this season: Yes Have you received the Pneumonia Vaccine: Yes ROS Obtained: Yes Systems reviewed as appropriate & no additional complaints except as documented Physical Exam General General appearance: alert, in no apparent distress and obese Head Head exam: atraumatic and normocephalic Eye Eye exam: Present PERRL and EOMI ENT ENT exam: Present mucous membranes moist Neck Neck exam: Present normal inspection and full ROM Chest Chest inspection: Present symmetric chest wall rise Respiratory Respiratory exam: Present normal lung sounds bilaterally; Absent respiratory distress, wheezes or stridor Cardiovascular Cardiovascular exam: Present regular rate and normal rhythm Abdominal Exam Abdominal exam: Present soft; Absent distention, tenderness, guarding or rebound Extremities Exam Extremities exam: Present full ROM Neurological Exam Neurological exam: Present alert, oriented X3 and normal gait; Absent motor sensory deficit Psychiatric Psychiatric exam: Present normal affect and normal mood Skin Skin exam: Present warm and dry HEART Score HEART Score HEART Score assessment performed?: Yes History (anamnesis): Slightly suspicious ECG: Non-specific disturbance Age: 45-65 years Risk factors: 1-2 risk factors Troponin: </= normal limit HEART Score: 3 Critical Care Critical Care Time Critical Care Time: No Medical Decision Making Medical Records Medical records reviewed: Yes I reviewed the patient's medical records. MR Comment: Most recent cardiology note from December 2023 was reviewed by me and demonstrates that patient did not have the GXT Myoview that was previously ordered or performed. She had stable blood pressure, they planned to have the GXT Myoview performed, serum labs, and return to clinic in February. Records demonstrate patient has not yet been back to clinic since that appointment. [place] Inquiry Pt receiving controlled substance: No Vital Signs Vital Signs: 03/27/24 10:17 03/27/24 10:31 03/27/24 10:49 Temperature 97.7 F Temperature Source Oral Pulse Rate 62 68 Pulse Rate [Right] 65 Respiratory Rate 19 11 L Blood Pressure 122/85 Blood Pressure [Right Arm] 125/83 Blood Pressure Mean [Right Arm] 97 Blood Pressure Source [Right Arm] Automatic Cuff 02 Sat by Pulse Oximetry 99 95 Oxygen Delivery Method Room Air Room Air 03/27/24 11:00 03/27/24 11:30 03/27/24 12:00 Temperature Temperature Source Pulse Rate 58 L 57 L 57 L Pulse Rate [Right] Respiratory Rate 13 12 13 Blood Pressure 124/79 112/79 121/82 Blood Pressure [Right Arm] Blood Pressure Mean [Right Arm] Blood Pressure Source [Right Arm] 02 Sat by Pulse Oximetry 95 93 L 97 Oxygen Delivery Method Room Air Room Air Room Air Lab Data Labs: Lab Results 03/27/24 10:30: SARS-CoV-2 (PCR) Not detected, Influenza A Untype (PCR) Not detected, Influenza Type B (PCR) Not detected 03/27/24 11:10: WBC 6.3, RBC 4.44, Hgb 13.7, Hct 40.2, MCV 90.5, MCH 30.9, MCHC 34.1, RDW 11.9, Plt Count 297, MPV 10.8 H, Neut % (Auto) 51.9, Lymph % (Auto) 36.8, [place] % (Auto) 7.8, Eos % (Auto) 2.7, Baso % (Auto) 0.6, Neut # (Auto) 3.3, Lymph # (Auto) 2.3, F[place] # (Auto) 0.5, Eos # (Auto) 0.2, Baso # (Auto) 0.0, Sodium 138, Potassium 4.3, Chloride 102, Carbon Dioxide 25, Anion Gap 15.3 H, BUN 7, Creatinine 1.00, Estimated Creat Clear 111, Estimated GFR 59, Est GFR ( Amer) 72, Glucose 83, Calcium 9.2, Total Bilirubin 0.2, AST 28, ALT 20, Alkaline Phosphatase 79, Troponin I < 0.01, Total Protein 6.9, Albumin 4.2, Globulin 2.7, Albumin/Globulin Ratio 1.6 03/27/24 11:10 03/27/24 11:10 Response Orders (Tests/Meds): ORDERS Category Date Time Status CXR 2 view (NOT portable) [XR chest 2V] Stat Exams 03/27/24 10:30 Completed CBC w/Auto Diff [Complete Blood Count Auto Diff] Stat Lab 03/27/24 11:10 Completed CMP [Comprehensive Metabolic Panel] Stat Lab 03/27/24 11:10 Completed HIV Combo Stat Lab 03/27/24 11:10 Received Hepatitis C Ab Qual. W/ RFX Stat Lab 03/27/24 11:10 Received Rapid PCR Covid and Flu A/B Stat Lab 03/27/24 10:30 Completed Trop I [Troponin I] Stat Lab 03/27/24 11:10 Completed Troponin I Q3H Lab 03/27/24 13:30 Ordered Troponin I Q3H Lab 03/27/24 16:30 Ordered MDM Narrative Medical Decision Narrative: In summary, this 48-year-old female with comorbidities described in the HPI presents to the emergency department today with cough, chest congestion, pain in the chest after coughing. On initial evaluation patient is hemodynamically stable, afebrile, cardiopulmonary exam is benign with good air movement throughout, saturating well on room air, no peripheral edema. Differential diagnosis includes but is not limited to ACS, arrhythmia, electrolyte abnormality, musculoskeletal pain, pneumonia, pleural effusion, viral syndrome. I considered PE however patient is PERC negative. Based on these concerns, I ordered serum labs, EKG, chest x-ray, viral swab. ECG personally interpreted demonstrates sinus rhythm, rate 60, normal axis, normal LA and QTc, no STEMI. No medications administered in the ER at this time. Labs personally reviewed demonstrate no leukocytosis, no anemia, platelets normal, CMP nonactionable, troponin undetectably low less than 0.01, COVID, flu negative. Given patient's duration of symptoms and reassuring workup otherwise as well as not having active chest pain in the ER, I am very reassured by her undetectable troponin and do not believe serial troponins are indicated at this time XR personally interpreted demonstrates no lobar infiltrate, no acute thoracic abnormality, see radiology for final interpretation. On reassessment patient continues to rest comfortably. She is not having active chest pain. She still has cough. I prescribed guaifenesin?dextromethorphan for outpatient management. With patient reporting that her loop recorder has not been working, I did contact cardiology and spoke with Dr. Presley. He is not acutely concerned about it given patient's reassuring workup but recommended follow-up with Dr. Harrison on 03/29/2024 at 1 PM. Patient understands this and is able to make this appointment. Patient was given instructions on symptomatic management, follow up instructions, and return precautions for the emergency department. Patient indicated understanding and was discharged in stable condition.
[2024-03-27 10:38] LABS: Coronavirus 19, PCR Not Detected (NotDetected); Influenza A, PCR Not Detected (NotDetected); Influenza B, PCR Not Detected (NotDetected)
--- NOTE | 2024-03-27 10:52 | PC.NURSE ---
PT TO RADIOLOGY
--- NOTE | 2024-03-27 10:55 | PC.NURSE ---
PT RETURNED FROM RADIOLOGY
[2024-03-27 11:26] LABS: Basophils % 0.6 % (0.1-2.0); Eosinophils # 0.2 K/mm3 (0.0-0.4); Eosinophils % 2.7 % (0.1-12.0); Hematocrit 40.2 % (37.0-47.0); Hemoglobin 13.7 g/dL (12.2-16.2); Lymphocytes # 2.3 K/mm3 (0.7-4.5); Lymphocytes % 36.8 % (10-50); Mean Corpuscular HGB Conc 34.1 g/dL (31.8-35.4); Mean Corpuscular Hemoglobin 30.9 pg (27.0-31.2); Mean Corpuscular Volume 90.5 fl (81-99); Mean Platelet Volume 10.8 fl (7.4-10.4); Monocytes # 0.5 K/mm3 (0.1-1.0); Monocytes % 7.8 % (1.7-9.3); Neutrophils # 3.3 K/mm3 (1.8-7.8); Neutrophils % 51.9 % (37.0-80.0); Platelet Count 297 K/mm3 (142-424); Red Blood Count 4.44 M/mm3 (4.20-5.40); Red Cell Distribution Width 11.9 % (11.5-17.5); White Blood Count 6.3 K/mm3 (4.8-10.8)
[2024-03-27 11:34] LABS: Alanine Aminotransferase 20 U/L (12-78); Albumin Level 4.2 g/dl (3.5-5.0); Albumin/Globulin Ratio 1.6 (1.1-1.8); Alkaline Phosphatase 79 U/L (38-126); Anion Gap 15.3 mEq/L (5-15); Aspartate Amino Transferase 28 U/L (14-36); Bilirubin,Total 0.2 mg/dl (0.2-1.3); Blood Urea Nitrogen 7 mg/dl (7-17); Calcium 9.2 mg/dl (8.4-10.2); Carbon Dioxide 25 mmol/L (22.0-30.0); Chloride 102 mmol/L (98-107); Creatinine Clearance Estimated 111 mL/min (50-200); Estimated Glomerular Filt Rate 59 ml/min (>60); GFR (African American) 72 ML/MIN (>60); Globulin 2.7 g/dL (1.3-3.2); Glucose 83 mg/dl (74-100); Potassium 4.3 mmoL/L (3.5-5.1); Sodium 138 mmol/L (136-145); Total Protein,Serum 6.9 g/dl (6.3-8.2)
[2024-03-27 11:47] LABS: Troponin I < 0.01 ng/ml (0.00-0.034)
--- NOTE | 2024-03-27 12:04 | PC.NURSE ---
DR BRAN SPEAKING WITH CARDIOLOGY
--- NOTE | 2024-03-27 12:07 | PC.NURSE ---
DR BRAN AT BEDSIDE TO UPDATE PT AND FAMILY
[2024-03-27 12:25] LABS: HIV Combo NEGATIVE (Negative)
[2024-03-27 12:33] LABS: Hepatitis C Ab Qual. W/ RFX NEGATIVE (Negative)
--- NOTE | 2024-03-28 07:43 | PC.NURSE ---
pt called for a work note. I prepared the note to return on 03/30 as pt will see Cards on Wednesday 03/29
== END 2024-03-27 12:26 | disposition home or self-care (01) ==
PROVIDERS: Emergency Provider Emergency Medicine; PCP Family Medicine
DX: R07.89 Other chest pain (principal); R05.9 Cough, unspecified; R09.81 Nasal congestion; M79.10 Myalgia, unspecified site; Z87.891 Personal history of nicotine dependence
CPT/HCPCS: 71046; 80053; 84484; 85025; 86803; 87389; 87636; 93005; 99284

== ENCOUNTER 2024-04-22 17:18 | Emergency (ER) | payer MEDICAID, SELFPAY ==
[2024-04-22] VITALS (7 sets, daily range): BP systolic 114–148; BP diastolic 70–84; PULSE 54–78; RESP 14–19; TEMP 36.6–36.9; O2SAT 96–99; BMI 38.0
--- NOTE | 2024-04-22 17:18 | ECG_ITS ---
APPROVED REPORT Exam: Resting ECG HR:55 bpm ECG Measurements Heart Rate 55 AXES DE 198 P 46 QRSd 102 QRS 16 QT 442 T 44 QTc 431 Conclusion SINUS BRADYCARDIA LOW QRS VOLTAGE IN PRECORDIAL LEADS [QRS DEFLECTION < 1.0 mV IN CHEST LEADS] MODERATE T-WAVE ABNORMALITY, CONSIDER ANTERIOR ISCHEMIA [-0.1+ mV T-WAVE IN V3/V4] ABNORMAL ECG UNCONFIRMED REPORT Electronically signed by : ANTONIA NOVAK, 04/23/2024 05:30:49
--- NOTE | 2024-04-22 17:45 | XR_ITS ---
PROCEDURE INFORMATION: Exam: XR Chest Exam date and time: 04/22/2024 5:45 PM Age: 48 years old Clinical indication: Chest wall pain; Additional info: Cp to left arm TECHNIQUE: Imaging protocol: Radiologic exam of the chest. Views: 2 views. COMPARISON: CR XR CHEST 2V 09/18/2024 10:42 FINDINGS: Lungs: Unremarkable. No consolidation. Pleural spaces: Unremarkable. No pleural effusion. No pneumothorax. Heart/Mediastinum: Unremarkable. No cardiomegaly. Bones/joints: Unremarkable. IMPRESSION: No acute findings.
[2024-04-22] MEDS: ASPIRIN 81MG CHEWABLE TABLET 324 MG PO (17:56)
[2024-04-22 18:46] LABS: Basophils # 0.1 K/mm3 (0-0.2); Basophils % 0.6 % (0.1-2.0); Eosinophils # 0.2 K/mm3 (0.0-0.4); Eosinophils % 2.5 % (0.1-12.0); Hematocrit 39.6 % (37.0-47.0); Hemoglobin 13.1 g/dL (12.2-16.2); Lymphocytes # 2.7 K/mm3 (0.7-4.5); Lymphocytes % 34.4 % (10-50); Mean Corpuscular HGB Conc 33.1 g/dL (31.8-35.4); Mean Corpuscular Hemoglobin 30.6 pg (27.0-31.2); Mean Corpuscular Volume 92.5 fl (81-99); Mean Platelet Volume 11.1 fl (7.4-10.4); Monocytes # 0.6 K/mm3 (0.1-1.0); Monocytes % 7.1 % (1.7-9.3); Neutrophils # 4.4 K/mm3 (1.8-7.8); Platelet Count 284 K/mm3 (142-424); Red Blood Count 4.28 M/mm3 (4.20-5.40); Red Cell Distribution Width 12.5 % (11.5-17.5); White Blood Count 7.9 K/mm3 (4.8-10.8)
[2024-04-22 18:52] LABS: Albumin Level 4.3 g/dl (3.5-5.0); Chloride 102 mmol/L (98-107); Potassium 4.2 mmoL/L (3.5-5.1); Sodium 136 mmol/L (136-145)
[2024-04-22 18:53] LABS: INR 0.82 (0.9-1.1); Prothrombin Time 9.2 seconds (9.2-12.1)
[2024-04-22 18:55] LABS: Alanine Aminotransferase 19 U/L (12-78); Albumin/Globulin Ratio 1.6 (1.1-1.8); Alkaline Phosphatase 72 U/L (38-126); Anion Gap 7.2 mEq/L (5-15); Aspartate Amino Transferase 34 U/L (14-36); Bilirubin,Total 0.3 mg/dl (0.2-1.3); Blood Urea Nitrogen 12 mg/dl (7-17); Carbon Dioxide 31 mmol/L (22.0-30.0); Creatinine Clearance Estimated 107 mL/min (50-200); Estimated Glomerular Filt Rate 59 ml/min (>60); GFR (African American) 72 ML/MIN (>60); Globulin 2.7 g/dL (1.3-3.2)
[2024-04-22 18:56] LABS: Activated Partial Thrombo Time 25.6 seconds (22.5-28.5); Calcium 8.7 mg/dl (8.4-10.2); Glucose 96 mg/dl (74-100); Lipase 48 U/L (23-300); Magnesium 1.8 mg/dl (1.6-2.3)
--- NOTE | 2024-04-22 19:02 | PC.NURSE ---
spoke to lab regarding troponin. Will be done in 5 minues
[2024-04-22 19:05] LABS: NT Pro Brain Natriuretic Pep. 102 pg/mL (0-125)
[2024-04-22 19:09] LABS: Troponin I < 0.01 ng/ml (0.00-0.034)
--- NOTE | 2024-04-22 19:22 | [facility].EDCP ---
Discharge Plan Disposition Patient Disposition: Home, Self-Care Chief Complaint: Chest Pain Prescriptions Prescriptions: No Action atorvastatin [Lipitor] 20 mg tablet 20 mg PO DAILY Qty: 90 3RF trazodone 100 mg tablet 100 mg PO HS Patient Comments: TAKE 2 TABLETS BY MOUTH NIGHTLY NEEDED FOR SLEEP estradiol 1 mg tablet 1 mg PO DAILY levocetirizine [Xyzal] 5 mg tablet 5 mg PO DAILY Qty: 30 2RF dextromethorphan-guaifenesin 20-400 mg tablet 1 tab PO Q8H PRN (Reason: cough) Qty: 7 0RF Referrals Follow up/Referrals: Gurjit Mena MD [Primary Care Provider] - See instructions Activity Restrictions/Add. Instructions Additional Instructions/Restrictions: Maintain follow-up with cardiology for stress test. Call your family doctor to establish care for this visit to the emergency department and schedule follow-up within 48 hours to ensure improvement. If you have any worsening of your condition or any other concerning signs or symptoms, return to the emergency department or your primary care doctor for further evaluation. Clinical Impressions Clinical Impression: Chest pain Print Language Print Language: Macanese Discharge ED Provider: Doni Nava General Chief Complaint: Chest Pain Stated Complaint: CP Time Seen by Provider: 04/22/24 17:23 Mode of Arrival: Ambulatory Source of Information: Patient Description of Symptoms (Recalled from ER Triage Doc. by RN): pt presents to ED with c/o chest pain. symptoms began today. pts daughter at bedsides states that they have been shopping all day on the way home pt began to have symptoms, with radiation into left arm. pt does have loop recorder on, pt sees dr mao. History of Present Illness HPI narrative: Please note that above description of symptoms, in this electronic medical record under categorization of recalled from ER triage doctor by RN are reflective of an initial nursing assessment, however, is not reflective of my full history and physical exam that was personally taken and clarified. Consequentially, this preceding description of symptoms, which may include the patient's categorized chief complaint in the EMR, do not reflect my personal clinical impression, and the ultimate description of history of present illness and patient stated complaints should be deferred to this section of the note. Unless stated otherwise or congruent with this section of the note, additional signs, symptoms, or incongruence should be interpreted as inaccurate with my clinical impression. Related Data Home Medications ?Medication ?Instructions ?Recorded ?Confirmed estradiol 1 mg tablet 1 mg PO DAILY 08/15/23 03/29/24 trazodone 100 mg tablet 100 mg PO HS 09/04/23 03/29/24 Previous Rx's ?Medication ?Instructions ?Recorded levocetirizine 5 mg tablet (Xyzal) 5 mg PO DAILY #30 tabs 12/10/23 atorvastatin 20 mg tablet (Lipitor) 20 mg PO DAILY #90 tabs 12/15/23 dextromethorphan-guaifenesin 20 1 tab PO Q8H PRN cough #7 tabs 03/27/24 mg-400 mg tablet Allergies Allergy/AdvReac Type Severity Reaction Status Date / Time adhesive tape Allergy Mild Verified 03/29/24 13:23 [facility] Disclaimer: The information contained in this section may have been updated after the patient was seen, as this information can be updated by other users. Medical History Sleep apnea Thyroid Nodule Hearing loss in right ear Loose left total knee arthroplasty Chronic sinusitis H/O Eustachian tube dysfunction Hearing difficulty of right ear Dyspnea on exertion FARHEEN (obstructive sleep apnea) Meningioma Seizures Ovarian cyst Breast cancer Hx of thyroid cancer Implantable loop recorder present Tachycardia History of hypertension PTSD (post-traumatic stress disorder) Anxiety Depression Surgical History History of partial thyroidectomy History of loop recorder H/O: knee surgery History of carpal tunnel repair History of cholecystectomy History of abdominal hysterectomy total, [place] Family History Other Anemia Asthma Cancer Coronary artery disease Diabetes FHx: mental illness Heart attack Hyperlipidemia Hypertension Thyroid disorder Social History Smoking Status: Former smoker tobacco type: cigarettes packs per day: 0 alcohol intake: current alcohol intake frequency: holidays/special occasions only counseling provided: none substance use type: denies use current occupational status: unemployed Travel in the last 8 weeks: None household members: none housing: house marital status: single number of children: 3 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 current occupational exposures/hazards: No caffeine: No Have you lived/traveled outside US in past 30 days?: No Contact w/someone who lives/traveled outside US past 30 days?: No Exposure to someone with infectious disease in past 14 days?: No Do you have a fever (greater than 100.4 F or 38 C)?: No Have you tested positive for COVID-19: No Exposed to someone with COVID-19 in past 14 days?: No Do you have a sore throat?: No Do you have a cough?: No Do you have any weakness?: No Do you have any diarrhea?: No Are you experiencing any unusual bleeding?: No Do you have any muscle aches/pain?: No Do you have any abdominal pain?: No Are you experiencing loss of taste or smell?: No Other Medical History Have you received the Flu Vaccine for this season: Yes Have you received the Pneumonia Vaccine: Yes ROS Obtained: Yes All systems reviewed & no additional complaints except as documented Physical Exam General General appearance: alert Neck Neck exam: Present trachea midline Chest Chest inspection: Present normal inspection and symmetric chest wall rise Respiratory Respiratory exam: Present normal lung sounds bilaterally; Absent respiratory distress, wheezes, stridor, accessory muscle use or prolonged expiratory phase Cardiovascular Cardiovascular exam: Present regular rate, normal rhythm and other (Pulses equal and symmetric in upper and lower extremities) Extremities Exam Extremities exam: Absent edema Neurological Exam Neurological exam: Present alert, oriented X3 and CN II-XII intact Skin Skin exam: Present warm and dry; Absent cyanosis, diaphoresis or pallor HEART Score HEART Score HEART Score assessment performed?: Yes History (anamnesis): Slightly suspicious ECG: Non-specific disturbance Age: 45-65 years Risk factors: 1-2 risk factors Troponin: </= normal limit HEART Score: 3 Critical Care Critical Care Time Critical Care Time: No Medical Decision Making Medical Records Medical records reviewed: Yes I reviewed the patient's medical records. [place] Inquiry Pt receiving controlled substance: No [place] was queried for this patient: No Vital Signs Vital Signs: 04/22/24 17:21 04/22/24 17:31 04/22/24 17:38 Temperature 98.4 F Temperature Source Oral Pulse Rate 59 L 56 L Pulse Rate [Left Radial] 55 L Respiratory Rate 14 15 15 Blood Pressure 127/84 117/70 Blood Pressure [Right Arm] 127/84 Blood Pressure Mean [Right Arm] 98 Blood Pressure Source [Right Arm] Automatic Cuff 02 Sat by Pulse Oximetry 96 97 97 Oxygen Delivery Method Room Air Room Air Room Air 04/22/24 18:00 04/22/24 19:00 Temperature Temperature Source Pulse Rate 54 L 54 L Pulse Rate [Left Radial] Respiratory Rate 19 16 Blood Pressure 114/77 114/82 Blood Pressure [Right Arm] Blood Pressure Mean [Right Arm] Blood Pressure Source [Right Arm] 02 Sat by Pulse Oximetry 98 99 Oxygen Delivery Method Room Air Room Air Lab Data Labs: Lab Results 04/22/24 17:22: WBC 7.9, RBC 4.28, Hgb 13.1, Hct 39.6, MCV 92.5, MCH 30.6, MCHC 33.1, RDW 12.5, Plt Count 284, MPV 11.1 H, Neut % (Auto) 55.0, Lymph % (Auto) 34.4, [place] % (Auto) 7.1, Eos % (Auto) 2.5, Baso % (Auto) 0.6, Neut # (Auto) 4.4, Lymph # (Auto) 2.7, [place] # (Auto) 0.6, Eos # (Auto) 0.2, Baso # (Auto) 0.1, PT 9.2, INR 0.82 L, APTT 25.6, Sodium 136, Potassium 4.2, Chloride 102, Carbon Dioxide 31 H, Anion Gap 7.2, BUN 12, Creatinine 1.00, Estimated Creat Clear 107, Estimated GFR 59, Est GFR ( Amer) 72, Glucose 96, Calcium 8.7, Magnesium 1.8, Total Bilirubin 0.3, AST 34, ALT 19, Alkaline Phosphatase 72, Troponin I < 0.01, NT-Pro-B Natriuret Pep 102, Total Protein 7.0, Albumin 4.3, Globulin 2.7, Albumin/Globulin Ratio 1.6, Lipase 48 04/22/24 19:00: Troponin I < 0.01 04/22/24 17:22 04/22/24 17:22 Response Orders (Tests/Meds): ED MEDICATIONS Discontinued Medications Generic Name Dose Route Start Last Admin Trade Name Freq PRN Reason Stop Dose Admin Aspirin 324 mg 04/22/24 17:45 04/22/24 17:56 Aspirin 81mg Chewable Tablet PO 04/22/24 17:46 324 mg ONCE ONE Administration ORDERS Category Date Time Status CXR 2 view (NOT portable) [XR chest 2V] Stat Exams 04/22/24 17:45 Taken Complete Blood Count Auto Diff Stat Lab 04/22/24 17:22 Completed Comprehensive Metabolic Panel Stat Lab 04/22/24 17:22 Completed Lipase Stat Lab 04/22/24 17:22 Completed Magnesium Stat Lab 04/22/24 17:22 Completed NT Pro Brain Natriuretic Pep. Stat Lab 04/22/24 17:22 Completed PT INR [Prothrombin Time INR] Stat Lab 04/22/24 17:22 Completed PTT [Activated Partial Thrombo Time] Stat Lab 04/22/24 17:22 Completed Troponin I Q3H Lab 04/22/24 19:00 Completed Troponin I Q3H Lab 04/23/24 00:00 Ordered Troponin I Stat Lab 04/22/24 17:22 Completed MDM Narrative Medical Decision Narrative: 48-year-old female history of CAD, hypertension, FARHEEN, paroxysmal bradycardia and tachycardia with loop recorder in place being evaluated for pacemaker placement presenting with chest pain. Patient states that she was a passenger in a car a few hours prior to arrival when she had chest pain that was left-sided, radiated to her left shoulder and caused her left upper extremity to feel heavy and tingly. Significantly better now, but still mild symptoms as compared to what she had initially. States that she does not currently have any shortness of breath, but has been more short of breath than usual recently. No cough, fevers, chills, no syncopal episodes, or any other associated symptoms. History was obtained via conversation with patient and. On arrival, patient hemodynamically stable, alert, oriented x4, appropriate, GCS 15, moving all extremities spontaneously, pupils equal and reactive to light. Full physical exam performed and significant for very clinically well-appearing female no acute distress. Cardiopulmonary exam normal other than slight bradycardia. No murmurs gallops or rubs. No lower extremity edema. Pulses equal and symmetric in upper and lower extremities, lungs are clear. Differential includes microvascular coronary artery disease, CHF, ACS, ID, coronary artery dissection, pneumothorax, PE, dissection, pericarditis, myocarditis, pneumothorax, aortic aneurysm, pneumonia, bronchitis, among others. Patient was given aspirin for symptomatic management and correction of underlying abnormalities. Patient placed on continuous cardiac monitoring and continuous pulse ox with initial blood pressure 127/84, heart rate 59, saturation 96% on room air. Independent interpretation of EKG shows sinus bradycardia 55 bpm with T wave inversions in septal and anterior leads consistent with previous EKGs. DE 198, QRS 102, QTc 431 No acute ischemic change. Workup independently interpreted and significant for nonactionable CBC or chemistry, troponin negative, BNP negative. Lipase negative. On independent interpretation of imaging, no acute cardiopulmonary space disease on chest x-ray. See radiology read for full review of final results. Heart score 3. Patient was placed in observation beginning at 545 in order to rule out evolving ID with delta troponins and determine need for admission versus home-going. The patient was provided serial exams, cardiac monitoring while awaiting results. Independent interpretation of results demonstrated negative delta troponin. On reevaluation, patient still resting at baseline. At this time, I feel patient is appropriate for discharge. Total observation time 3 hours. Given patient presentation, workup, history, this most likely represents chest pain, idiopathic. Patient states that she was supposed to follow-up with cardiology for stress test, was recommended that she keep this appointment. Given low risk heart score, appropriate for outpatient management. Because patient at baseline without signs or symptoms of clinical decompensation, deemed appropriate for discharge. Results were relayed to patient who voiced understanding and were agreeable to outpatient management and follow up. I discussed my clinical impression with patient and answered all questions. At this time, the evidence for any other entities in the differential is insufficient to warrant any further testing or ED observation. This was explained as well. Advisory was given that persistent or worsening symptoms require further evaluation. I confirmed the understanding of this discussion. Fixed Income Analyst disclaimer Much of this encounter note is an electronic data entry technician spoken language to printed text. Electronic data entry technician of the spoken language may permit errors. Although I have reviewed the note, some errors may still exist.
[2024-04-22 19:54] LABS: Troponin I < 0.01 ng/ml (0.00-0.034)
== END 2024-04-22 20:19 | disposition home or self-care (01) ==
PROVIDERS: Emergency Provider Emergency Medicine; PCP Family Medicine
DX: R07.9 Chest pain, unspecified (principal)
CPT/HCPCS: 71046; 80053; 83690; 83735; 83880; 84484; 85025; 85610; 85730; 93005; 99284

== ENCOUNTER 2024-05-14 19:17 | Emergency (ER) | payer MEDICAID, SELFPAY ==
[2024-05-14 19:24] VITALS: BP 114/77; PULSE 58; RESP 14; O2SAT 94
--- NOTE | 2024-05-14 19:28 | ED_ITS ---
<Statement entered by Tia Casanova MD - 05/14/24 23:51> I was consulted by the ANDERS, and we discussed the complexity of the problems being addressed. I approved the treatment and management plan for this patient's care in the emergency department, thus performing a substantive portion of the medical decision making. iTa Casanova MD, VITO, FACEP Discharge Plan Disposition Patient Disposition: Home, Self-Care Condition: Good Chief Complaint: PAIN Prescriptions Prescriptions: No Action atorvastatin [Lipitor] 20 mg tablet 20 mg PO DAILY Qty: 90 3RF trazodone 100 mg tablet 100 mg PO HS Patient Comments: TAKE 2 TABLETS BY MOUTH NIGHTLY NEEDED FOR SLEEP estradiol 1 mg tablet 1 mg PO DAILY levocetirizine [Xyzal] 5 mg tablet 5 mg PO DAILY Qty: 30 2RF dextromethorphan-guaifenesin 20-400 mg tablet 1 tab PO Q8H PRN (Reason: cough) Qty: 7 0RF Referrals Follow up/Referrals: Gurjit Mena MD [Primary Care Provider] - See instructions Mac Lopez MD [Staff Physician] - See instructions (Bleeding hemorrhoids) Activity Restrictions/Add. Instructions Additional Instructions/Restrictions: As we discussed I am referring you to general surgery for ongoing management care of your hemorrhoids. I recommend a topical steroid cream for pain and bleeding such as Preparation H. If you have any continued new or worsening signs or symptoms follow-up with your PCP return to the ER as needed. Clinical Impressions Clinical Impression: Bleeding hemorrhoids Instructions Patient Instructions: DI for Hemorrhoids Print Language Print Language: Czech Discharge ED Provider: Tia Casanova General Adult HPI General Chief complaint: PAIN Stated complaint: vaginal and rectal bleeding,right side pain Time Seen by Provider: 05/14/24 19:28 History of Present Illness HPI narrative: Patient presents for evaluation of vaginal and rectal bleeding. Patient states that she went to the bathroom normally to urinate and noticed that she had blood in the toilet and on the paper when she wiped. Patient is status post total abdominal hysterectomy. Related Data Home Medications ?Medication ?Instructions ?Recorded ?Confirmed estradiol 1 mg tablet 1 mg PO DAILY 08/15/23 03/29/24 trazodone 100 mg tablet 100 mg PO HS 09/04/23 03/29/24 Previous Rx's ?Medication ?Instructions ?Recorded levocetirizine 5 mg tablet (Xyzal) 5 mg PO DAILY #30 tabs 12/10/23 atorvastatin 20 mg tablet (Lipitor) 20 mg PO DAILY #90 tabs 12/15/23 dextromethorphan-guaifenesin 20 1 tab PO Q8H PRN cough #7 tabs 03/27/24 mg-400 mg tablet Allergies Allergy/AdvReac Type Severity Reaction Status Date / Time adhesive tape Allergy Mild Verified 03/29/24 13:23 [facility] Disclaimer: The information contained in this section may have been updated after the patient was seen, as this information can be updated by other users. Medical History Sleep apnea Thyroid Nodule Hearing loss in right ear Loose left total knee arthroplasty Chronic sinusitis H/O Eustachian tube dysfunction Hearing difficulty of right ear Dyspnea on exertion FARHEEN (obstructive sleep apnea) Meningioma Seizures Ovarian cyst Breast cancer Hx of thyroid cancer Implantable loop recorder present Tachycardia History of hypertension PTSD (post-traumatic stress disorder) Anxiety Depression Surgical History History of partial thyroidectomy History of loop recorder H/O: knee surgery History of carpal tunnel repair History of cholecystectomy History of abdominal hysterectomy total, [place] Family History Other Anemia Asthma Cancer Coronary artery disease Diabetes FHx: mental illness Heart attack Hyperlipidemia Hypertension Thyroid disorder Social History Smoking Status: Current every day smoker tobacco type: cigarettes packs per day: 0 alcohol intake: current alcohol intake frequency: holidays/special occasions only counseling provided: none substance use type: denies use current occupational status: unemployed Travel in the last 8 weeks: None household members: none housing: house marital status: single number of children: 3 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 current occupational exposures/hazards: No caffeine: No Have you lived/traveled outside US in past 30 days?: No Contact w/someone who lives/traveled outside US past 30 days?: No Exposure to someone with infectious disease in past 14 days?: No Do you have a fever (greater than 100.4 F or 38 C)?: No Have you tested positive for COVID-19: No Exposed to someone with COVID-19 in past 14 days?: No Do you have a sore throat?: No Do you have a cough?: No Do you have any weakness?: No Do you have any diarrhea?: No Are you experiencing any unusual bleeding?: No Do you have any muscle aches/pain?: No Do you have any abdominal pain?: No Are you experiencing loss of taste or smell?: No Other Medical History Have you received the Flu Vaccine for this season: Yes Have you received the Pneumonia Vaccine: Yes ROS Obtained: Yes Systems reviewed as appropriate & no additional complaints except as documented Physical Exam General General appearance: alert and in no apparent distress Respiratory Respiratory exam: Present normal lung sounds bilaterally Cardiovascular Cardiovascular exam: Present regular rate Neurological Exam Neurological exam: Present alert and oriented X3 Medical Decision Making Medical Records Medical records reviewed: Yes I reviewed the patient's medical records. Screening: Per USPSTF and CDC recommendations, given the prevalence of disease in our region, it is our hospital?s policy to screen for HIV and viral Hepatitis for all patients aged 18 and over and those with ongoing risk factors. [place] Inquiry Pt receiving controlled substance: No Vital Signs: 05/14/24 19:24 05/14/24 19:30 05/14/24 20:00 Temperature 98.0 F Temperature Source Oral Pulse Rate 58 L 55 L Pulse Rate [Right Brachial] 59 L Respiratory Rate 14 17 16 Blood Pressure 114/77 117/79 Blood Pressure [Right Arm] 114/77 Blood Pressure Mean [Right Arm] 89 Blood Pressure Source [Right Arm] Automatic Cuff Blood Pressure Position [Right Arm] Sitting 02 Sat by Pulse Oximetry 94 L 97 93 L Oxygen Delivery Method Room Air Room Air Room Air 05/14/24 21:00 Temperature Temperature Source Pulse Rate 58 L Pulse Rate [Right Brachial] Respiratory Rate 14 Blood Pressure 108/64 L Blood Pressure [Right Arm] Blood Pressure Mean [Right Arm] Blood Pressure Source [Right Arm] Blood Pressure Position [Right Arm] 02 Sat by Pulse Oximetry 94 L Oxygen Delivery Method Room Air Lab Data Lab results reviewed: Yes I reviewed the patient's lab results. Lab Results 05/14/24 19:40: Urine Color Yellow, Urine Appearance Clear, Urine pH 7.0, Ur Specific [place] 1.020, Urine Protein Negative, Urine Glucose (UA) Negative, Urine Ketones Negative, Urine Blood Negative, Urine Nitrate Negative, Urine Bilirubin Negative, Urine Urobilinogen 1.0, Ur Leukocyte Esterase Negative, Urine RBC None, Urine WBC Occasional, Ur Squamous Epith Cells 3-5, Urine Bacteria Trace 05/14/24 19:50: WBC 9.2, RBC 4.23, Hgb 13.1, Hct 38.8, MCV 91.7, MCH 31.0, MCHC 33.8, RDW 13.5, Plt Count 288, MPV 10.7 H, Neut % (Auto) 58.7, Lymph % (Auto) 32.2, [place] % (Auto) 5.7, Eos % (Auto) 2.4, Baso % (Auto) 0.8, Neut # (Auto) 5.4, Lymph # (Auto) 3.0, [place] # (Auto) 0.5, Eos # (Auto) 0.2, Baso # (Auto) 0.1 05/14/24 20:10: PT 10.1, INR 0.89 L, Sodium 136, Potassium 4.0, Chloride 102, Carbon Dioxide 28, Anion Gap 10.0, BUN 11, Creatinine 1.10 H, Estimated Creat Clear 97, Estimated GFR 53 L, Est GFR ( Amer) 64, Glucose 96, Calcium 9.4, Total Bilirubin 0.3, AST 26, ALT 17, Alkaline Phosphatase 71, Total Protein 6.4, Albumin 4.0, Globulin 2.4, Albumin/Globulin Ratio 1.7, Procalcitonin < 0.030 05/14/24 19:50 05/14/24 20:10 Orders (Tests/Meds): ED MEDICATIONS Generic Name Dose Route Start Last Admin Trade Name Freq PRN Reason Stop Dose Admin Sodium Chloride 10 ml 05/14/24 21:26 05/14/24 21:28 Sodium Chloride 0.9% 10ml Syr (Rad Only) IV 06/13/24 21:25 10 ml NEEDED PRN Administration Maintain IV Site Discontinued Medications Generic Name Dose Route Start Last Admin Trade Name Freq PRN Reason Stop Dose Admin Acetaminophen 1,000 mg 05/14/24 19:41 05/14/24 19:50 Acetaminophen 500mg Tab PO 05/14/24 19:42 1,000 mg ONCE ONE Administration Iopamidol 75 ml 05/14/24 21:26 03/28/25 21:27 Iopamidol-370 (76%);100ml Bottle IV 05/14/24 21:27 75 ml ONCE ONE Administration ORDERS Category Date Time Status CT abdomen pelvis w con Stat Cat Scan 05/14/24 19:41 Completed CBC w/Auto Diff [Complete Blood Count Auto Diff] Stat Lab 05/14/24 19:50 Completed CMP [Comprehensive Metabolic Panel] Stat Lab 05/14/24 20:10 Completed INR [Prothrombin Time INR] Stat Lab 05/14/24 20:10 Completed Procalcitonin Stat Lab 05/14/24 20:10 Completed UA [Urinalysis and Microscopic] Stat Lab 05/14/24 19:40 Completed Medical Decision Narrative: In summary patient is a 48-year-old female who presents to the emergency department for evaluation of vaginal and rectal bleeding. Patient is hemodynamically stable upon arrival, afebrile. Physical exam is remarkable for clear breath sounds no increased work of breathing soft abdomen without rebound or guarding or rigidity normal bowel sounds.. Differential diagnosis includes bleeding vaginal cuff versus hemorrhoid versus GI bleed versus UTI etc. Initial workup will be conducted with pelvic exam and rectal exam hematologic labs urinalysis CT scan abdomen pelvis. Initial interventions include crystalloid bolus and Tylenol for now. Initial workup reviewed by me shows that her white count is normal with a normal hemoglobin and hematocrit with no neutrophilic shift, INR 0.89, chemistry shows a creatinine 1.1 with a GFR of 53 a procalcitonin of less than 0.030, urinalysis is negative for blood ketones nitrites leukocyte esterase and my informal interpretation of her CT scan shows no acute intra-abdominal pathology masses or free air prior to radiology read. Official interpretation shows minimal bilateral pleural effusions and pulmonary atelectasis bilaterally and a nonspecific heterogeneous and irregular appearance of the liver and a small hiatal hernia. Upon repeat evaluation patient reports no continued pain and is tolerating oral intake. External genital exam reveals no vaginal bleeding however patient does have nonthrombosed right sided hemorrhoids that showed stigmata of fresh bleeding and swelling. Given this patient is appropriate for discharge with referral to general surgery for ongoing management care. Critical Care Critical Care Time Critical Care Time: No
[2024-05-14 19:30] VITALS: BP 114/77; PULSE 59; RESP 17; TEMP 36.7; O2SAT 97; BMI 38.0
--- NOTE | 2024-05-14 19:41 | CT_ITS ---
PROCEDURE INFORMATION: Exam: CT Abdomen And Pelvis With Contrast Exam date and time: 05/14/2024 9:02 PM Age: 48 years old Clinical indication: Other: Bleeding; Additional info: Vaginal and rectal bleeding TECHNIQUE: Imaging protocol: Computed tomography of the abdomen and pelvis with contrast. Radiation optimization: All CT scans at this facility use at least one of these dose optimization techniques: automated exposure control; mA and/or kV adjustment per patient size (includes targeted exams where dose is matched to clinical indication); or iterative reconstruction. Contrast material: ISOVUE; Contrast volume: 75 ml; Contrast route: IV; COMPARISON: ABDPELWW CT abdomen pelvis wo/w con 08/14/2017 10:54 AM FINDINGS: Lungs: Bilateral pulmonary linear interstitial opacities identified within posterior lower lungs. Pleural spaces: Minimal volume bilateral pleural effusions. Diaphragm: Small hiatal hernia is demonstrated within the lower mediastinum. Liver: Liver appears heterogeneous with irregular border. Possible hepatic parenchymal disease. Questionable liver hypodensity, potential fatty infiltration is demonstrated. Limited assessment with postcontrast imaging. Consider correlation with liver function tests. Gallbladder and biliary ducts: The gallbladder has been surgically removed. Surgical clips identified in the gallbladder fossa. No evidence for biliary dilatation. Pancreas: Unremarkable. Spleen: Unremarkable. No splenomegaly. Adrenal glands: Normal. No mass. Kidneys and ureters: Unremarkable. No hydronephrosis or calculi. Stomach and bowel: Unremarkable. No obstruction, ileus or definite inflammation. Appendix: The visualized appendix appears unremarkable. Intraperitoneal space: No free air. No significant fluid collection. Vasculature: Calcifications in the pelvis, most compatible with phleboliths. Lymph nodes: No enlarged lymph nodes. Urinary bladder: Urinary bladder appears small in size, limiting further assessment. Reproductive: The uterus is not present. The adnexa appears otherwise unremarkable. Bones/joints: Mild generalized bony degenerative changes. Bony structures appear otherwise unremarkable. Soft tissues: Unremarkable. Other findings: This study is limited by patient's body habitus. Limited study with artifact created by extremity overlying the area of imaging. Limited study with motion artifact. IMPRESSION: 1. Minimal bilateral pleural effusions. 2. Pulmonary atelectasis or acute infiltrates within posterior lower chest bilaterally. 3. Nonspecific heterogeneous and irregular appearance of the liver. Recommend correlation with liver function tests. 4. Small sized hiatal hernia.
[2024-05-14 19:47] LABS: Microscopic, Urine URINE MICROSCOPIC (MICROSCOPIC)
[2024-05-14 19:49] LABS: Appearance,Urine CLEAR (Clear); Bilirubin,Urine Negative (Negative); Blood, Urine Negative (Negative); Color,Urine YELLOW (Yellow); Glucose,Urine (UA) Negative (Negative); Ketones,Urine Negative (Negative); Leukocyte Esterase,Urine Negative (Negative); Nitrate,Urine Negative (Negative); Protein,Urine Negative (Negative)
[2024-05-14] MEDS: ACETAMINOPHEN 500MG TAB 1000 MG PO (19:50)
[2024-05-14 20:00] VITALS: BP 117/79; PULSE 55; RESP 16; O2SAT 93
[2024-05-14 20:00] LABS: Bacteria,Urine Trace /lpf; WBC,Urine Occasional #/hpf (0-3)
[2024-05-14 20:01] LABS: Basophils # 0.1 K/mm3 (0-0.2); Basophils % 0.8 % (0.1-2.0); Eosinophils # 0.2 K/mm3 (0.0-0.4); Eosinophils % 2.4 % (0.1-12.0); Hematocrit 38.8 % (37.0-47.0); Hemoglobin 13.1 g/dL (12.2-16.2); Lymphocytes % 32.2 % (10-50); Mean Corpuscular HGB Conc 33.8 g/dL (31.8-35.4); Mean Corpuscular Volume 91.7 fl (81-99); Mean Platelet Volume 10.7 fl (7.4-10.4); Monocytes # 0.5 K/mm3 (0.1-1.0); Monocytes % 5.7 % (1.7-9.3); Neutrophils # 5.4 K/mm3 (1.8-7.8); Neutrophils % 58.7 % (37.0-80.0); Platelet Count 288 K/mm3 (142-424); Red Blood Count 4.23 M/mm3 (4.20-5.40); Red Cell Distribution Width 13.5 % (11.5-17.5); White Blood Count 9.2 K/mm3 (4.8-10.8)
[2024-05-14 20:31] LABS: Alanine Aminotransferase 17 U/L (12-78); Albumin/Globulin Ratio 1.7 (1.1-1.8); Alkaline Phosphatase 71 U/L (38-126); Aspartate Amino Transferase 26 U/L (14-36); Bilirubin,Total 0.3 mg/dl (0.2-1.3); Blood Urea Nitrogen 11 mg/dl (7-17); Calcium 9.4 mg/dl (8.4-10.2); Carbon Dioxide 28 mmol/L (22.0-30.0); Chloride 102 mmol/L (98-107); Creatinine Clearance Estimated 97 mL/min (50-200); Estimated Glomerular Filt Rate 53 ml/min (>60); GFR (African American) 64 ML/MIN (>60); Globulin 2.4 g/dL (1.3-3.2); Glucose 96 mg/dl (74-100); Sodium 136 mmol/L (136-145); Total Protein,Serum 6.4 g/dl (6.3-8.2)
[2024-05-14 20:35] LABS: INR 0.89 (0.9-1.1); Procalcitonin < 0.030 ng/mL (0.0-2.0); Prothrombin Time 10.1 seconds (10.1-12.5)
[2024-05-14 21:00] VITALS: BP 108/64; PULSE 58; RESP 14; O2SAT 94
[2024-05-14] MEDS: IOPAMIDOL-370 (76%);100ML BOTTLE 75 ML IV (21:27)
[2024-05-14] MEDS: SODIUM CHLORIDE 0.9% 10ML SYR (RAD ONLY) 10 ML IV (21:28)
[2024-05-14 22:12] VITALS: BP 95/54; PULSE 54; RESP 16; TEMP 36.6; O2SAT 95
== END 2024-05-14 22:13 | disposition home or self-care (01) ==
PROVIDERS: Physician Assistant; Emergency Provider Student in an Organized Health Care Education/Training Program; PCP Family Medicine
DX: K64.9 Unspecified hemorrhoids (principal); N93.9 Abnormal uterine and vaginal bleeding, unspecified; K62.5 Hemorrhage of anus and rectum; F17.210 Nicotine dependence, cigarettes, uncomplicated; Z90.710 Acquired absence of both cervix and uterus; Z86.19 Personal history of other infectious and parasitic diseases
CPT/HCPCS: 74177; 80053; 81001; 84145; 85025; 85610; 99285; Q9967

== ENCOUNTER 2024-06-17 06:24 | Outpatient (CLI) | payer MEDICAID, SELFPAY ==
--- NOTE | 2024-06-17 | CA_ITS ---
APPROVED REPORT Exam: Pharmacologic Technologist: Smitha Plasencia Ht: 5 ft 3 in Wt: 227 lbs BSA: 2.04 m2 Medical History Medications: Albuterol, buspirone, escitalopram, estradiol, hydrocortisone 2.5%, xyzal, traxodone. Stress Test Details Test: Lexiscan Reason for pharmacologic stress test: physical limitation. HR Resting HR: 53 bpm Max Heart Rate (APMHR): 173.738473 bpm Max HR Achieved: 74 bpm Target HR (85% APMHR): 147.013245 bpm % of APMHR: 42.77 Recovery HR: 60 bpm BP Resting BP: 132.0/81.0 mmHg Max BP: 132.0/81.0 mmHg Recovery BP: 121.0/74.0 mmHg ECG Stress ECG Conclusion Symptoms: denies CP or SOA. Arrhythmias/Ectopy: None. ST-T Changes: EKG [id number]. Electronically signed by : Christy Harrison MD 06/17/2024 13:02:08
--- NOTE | 2024-06-17 06:30 | NM_ITS ---
APPROVED REPORT Exam: Nuclear Stress Test Indication: cp Patient Location: Outpatient Stress Tech: Smitha Fulton MS Tech:Yuly Funez NENA RT(R)(N) Ht: 5 ft 3 in Wt: 227 lbs Bra Size: 38d HR: 53 bpm BP: 132/81 mmHg BSA: 2.04 m2 TID: 1.24 BMI: 40.2 History: cp Procedure: Patient received 0.4 mg of intravenous Lexiscan, resting heart rate 53 bpm, resting blood pressure 132/81 mmHg, with Lexiscan maximum heart rate achieved was 73 bpm which is 85 % of the maximum predicted heart rate and blood pressure was 124/80 mmHg. With Lexiscan, patient denied any complaint of chest pain. Cardiac Stress and Resting SPECT Images: Cardiac Stress and Resting SPECT images were obtained using technetium 99m Myoview 28.8 mCi stress and 9.91 mCi at rest. Resting and stress imaging (demonstrated no evidence of fixed or reversible perfusion defects. There is increase in transient ischemic dilatation ratio (TID 1.24), suggestive of possible multivessel disease or balanced ischemia. Gated imaging demonstrates normal global LV systolic function. LVEF is calculated at 54%. Conclusion: No evidence of fixed or reversible perfusion defects. There is increase in transient ischemic dilatation ratio (TID 1.24), suggestive of possible multivessel disease or balanced ischemia. Gated imaging demonstrates normal global LV systolic function. LVEF is calculated at 54%. Electronically signed by : Christy Harrison MD 06/17/2024 13:00:35
[2024-06-17] MEDS: REGADENOSON 0.4MG/5ML SYRINGE 0.4 MG IV (10:52)
[2024-06-17] MEDS: ISOTOPE MYOVIEW (PER STUDY) 1 DOSE IV (10:52)
[2024-06-17] MEDS: SODIUM CHLORIDE 0.9% 10ML SYR (RAD ONLY) 10 ML IV ×2 (10:52)
== END 2024-06-17 23:59 | disposition home or self-care (01) ==
LOC: RAD 06:25
PROVIDERS: PCP Family Medicine; Visit Provider Nurse Practitioner Family
DX: R06.09 Other forms of dyspnea (principal)
CPT/HCPCS: 78452; 93017; 93018; A9502; J2785

== ENCOUNTER 2024-06-18 08:49 | Outpatient (CLI) | payer MEDICAID, SELFPAY ==
[2024-06-18 08:55] VITALS: BMI 40.1
[2024-06-18 09:16] VITALS: BP 105/67; PULSE 51; RESP 16; O2SAT 98
[2024-06-18 09:29] LABS: Blood Urea Nitrogen 10 mg/dl (7-17); Carbon Dioxide 26 mmol/L (22.0-30.0); Chloride 107 mmol/L (98-107); Creatinine Clearance Estimated 103 mL/min (50-200); Estimated Glomerular Filt Rate 53 ml/min (>60); GFR (African American) 64 ML/MIN (>60); Glucose 90 mg/dl (74-100); Sodium 135 mmol/L (136-145)
[2024-06-18 09:50] VITALS: BP 123/87; PULSE 50; RESP 16; O2SAT 95
[2024-06-18] MEDS: NITROGLYCERIN 0.4MG SL TABLET SL (09:50)
[2024-06-18 09:53] VITALS: BP 105/60; PULSE 55; RESP 16; O2SAT 96
[2024-06-18] MEDS: dilTIAZem 25MG/5ML VIAL 25 MG IV (09:58)
[2024-06-18] MEDS: 0.9 % SODIUM CHLORIDE 50 ML VIAL IV (09:58)
[2024-06-18] MEDS: IOPAMIDOL-370 (76%);100ML BOTTLE 94 ML IV (09:58)
--- NOTE | 2024-06-18 10:00 | CT_ITS ---
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 A noncontrast coronary calcium scan was performed. A CT attenuation threshold of 130 Hounsfield units (HU) was used for the detection of calcium in contiguous voxels of 1 sq mm in area to be counted as individual lesions. Bolus tracking in the ascending aorta with a threshold of 180 HU was performed. Immediately afterwards, ECG synchronized cardiac CT was then performed from the cardiac base to apex using retrospective gating with ECG tube current modulation. A total of 85 mL of Isovue 370 mg/mL contrast medium was administered at 5 mL/sec followed by a saline flush using a biphasic injection protocol. A tube voltage of 120 KVp was used. The patient received the following medications prior to the cardiac CT. 0.4 mg of sublingual nitroglycerin The average heart rate at the time of acquisition was 47 bpm and regular. Image Reconstruction Transaxial images were reconstructed at 0.67 mm slide thickness. Data was reviewed interactively on an advanced workstation capable of 2 and 3-dimensional displays in all conventional reconstruction formats, including multiplanar reformations, maximum intensity projections, curved multiplanar reformations, and volume rendered reconstructions. When applicable, selected routine images describing the relevant coronary anatomy and pathology were saved and sent to PACS. Complications None Technical Quality Overall image quality was good. Coronary artery opacification was adequate. Total DLP (Dose-Length Product) is 1260.6 mGy-cm. The reported value represents the total of one or more individual components during the CT acquisition of this date and at this time, and as such, the same value may appear in more than one CT report depending on the interpreting/reporting physicians. COMPARISON None FINDINGS CT Coronary Calcium Scoring LMA (Left Main Artery) = 0 LAD (Left Anterior Descending) = 0 LCX (Left Coronary Circumflex) = 0 RCA (Right Coronary Artery) = 0 Total Calcium Score = 0 using the AJ-130 method. The interpretation of the calcium heart score is based on the following continuum*: 0 = no calcified plaque detected (risk of coronary artery disease is very low ??? less than 5%) 1-10 = calcium detected in extremely minimal levels (risk of coronary diseases is still low ??? less than 10%) 11-100 = mild levels of plaque detected with certainty (mild or minimal narrowing of heart arteries is likely) 101-400 = definite,at least moderate levels of plaque detected (relatively high risk of a heart attack within 3-5 years) >401-999 = extensive levels of plaque detected (high risk of heart attack, high levels of vascular disease are present, high likelihood of at least one significant coronary narrowing) *The calcium heart score quantifies the burden of coronary calcification/plaque in the coronary arteries. The calcium heart score is not able to evaluate the presence or burden of non-calcified (i.e. soft) plaque. There is no identifiable calcification in the aortic valve, mitral annulus or mitral valve, pericardium, or myocardium. Coronary CT Angiography The coronary arterial system is right dominant. Quantitative Stenosis Grading: Left Main (LM): The left main originates normally from the left sinus of Valsalva. The LM bifurcates into the left anterior descending artery and left circumflex artery. The LM is patent with no evidence of atherosclerosis. Left Anterior Descending (LAD) and Diagonal Branches: The LAD gives off 2 diagonal branch(es). The LAD and its branches are patent with no evidence of atherosclerosis. There is no evidence of LAD-myocardial bridge. Left Circumflex (LCX) and Obtuse Marginals (OM): The LCX gives off 1 Obtuse Marginal (OM) branch(es). The LCX and its branches are patent with no evidence of atherosclerosis. Right Coronary Artery (RCA): The RCA originates normally from the right sinus of Valsalva. The RCA gives off a posterior descending artery (PDA) and posterolateral (PL) branches. The RCA and its branches are patent with no evidence of atherosclerosis. Non-Coronary Cardiac Findings: Analysis of the left ventricular (LV) structure and function was performed after 3-D reconstruction of the LV from axial images, with user-corrected automatic contouring for assessment of LV volumes and user-defined reconstruction from oblique planes for measurement of 3-D cardiac structure and function. -The left ventricle systolic function is normal. -There is no left atrial appendage filling defect. Two right pulmonary veins and two left pulmonary veins drain normally into the left atrium. -No pericardial thickening or calcification. -Central and branch pulmonary arteries in the [id number] are unremarkable. -Thoracic aorta within the visualized thoracic aortic-branches in the [id number] is unremarkable. Extracardiac Structures No significant extra-cardiac findings. Note, however, that this study is focused on the cardiac findings. IMPRESSION -Absence of coronary calcification with an Agatston score = 0 using the AJ-130 method. -No evidence of significant flow-limiting atherosclerosis of the coronary arteries. -CAD-RADS 0. Management recommendations per ACC/AHA guidelines*, as clinically appropriate. *Recommendations: CAD RADS 0: Reassurance. Consider non-atherosclerotic causes of chest pain. CAD RADS 1: Consider non-atherosclerotic causes of chest pain. Consider preventive therapy and risk factor modification. CAD RADS 2: Consider non-atherosclerotic causes of chest pain. Consider preventive therapy and risk factor modification, particularly for patients with nonobstructive plaque in multiple segments. CAD RADS 3: Consider further functional testing. Consider symptom-guided anti-ischemic and preventive pharmacotherapy as well as risk factor modification per published guideline statements. CAD RADS 4A: Consider further functional testing or invasive coronary angiography with revascularization per published guideline statements. Consider symptom-guided anti-ischemic and preventive pharmacotherapy as well as risk factor modification per published guideline statements. CAD RADS 4B: Invasive coronary angiography recommended with revascularization per published guideline statements. Consider symptom-guided anti-ischemic and preventive pharmacotherapy as well as risk factor modification per published guideline statements. CAD RADS 5: Consider invasive angiography and/or viability assessment with revascularization per published guideline statements. Consider symptom-guided anti-ischemic and preventive pharmacotherapy as well as risk factor modification per published guideline statements. CRITICAL RESULT None COMMUNICATION Per this written report The coronary and cardiac findings of this CCTA were reviewed, reported, and signed by Roberth Harrison MD (Cover Maker) Conclusion Electronically signed by : Christy Harrison MD 06/18/2024 10:25:50
[2024-06-18 10:07] VITALS: BP 115/66; PULSE 53; RESP 16; O2SAT 96
== END 2024-06-18 10:10 | disposition home or self-care (01) ==
PROVIDERS: PCP Family Medicine; Visit Provider Nurse Practitioner Family
DX: I20.89 Other forms of angina pectoris (principal); R94.39 Abnormal result of other cardiovascular function study
CPT/HCPCS: 75574; 80048; Q9967

== ENCOUNTER 2024-06-29 11:15 | Emergency (ER) | payer MEDICAID, SELFPAY ==
[2024-06-29] VITALS (8 sets, daily range): BP systolic 120–133; BP diastolic 80–92; PULSE 65–81; RESP 12–18; TEMP 36.7–37.1; O2SAT 95–98; BMI 38.0
--- NOTE | 2024-06-29 11:55 | PC.NURSE ---
Gave the patient a blanket.
--- NOTE | 2024-06-29 11:57 | ED_ITS ---
Discharge Plan Disposition Patient Disposition: Home, Self-Care Condition: Good Prescriptions Prescriptions: No Action escitalopram oxalate 20 mg tablet 20 mg PO DAILY Patient Comments: TAKE 1 TABLET BY MOUTH ONCE DAILY buspirone 10 mg tablet 10 mg PO NEEDED PRN (Reason: Anxiety) Patient Comments: TAKE 1 TABLET BY MOUTH THREE TIMES DAILY hydrocortisone [Proctosol HC] 2.5 % cream with perineal applicator 1 applic MA QD-BID PRN (Reason: hemorrhoids) Qty: 30 0RF albuterol sulfate [Ventolin HFA] 90 mcg/actuation HFA aerosol inhaler 90 mcg inhalation NEEDED PRN (Reason: SOA) Patient Comments: INHALE 2 PUFFS BY MOUTH EVERY 4 TO 6 HOURS NEEDED FOR SHORTNESS OF BREATH FOR WHEEZING trazodone 100 mg tablet 100 mg PO HS Patient Comments: TAKE 2 TABLETS BY MOUTH NIGHTLY NEEDED FOR SLEEP estradiol 1 mg tablet 1 mg PO DAILY levocetirizine [Xyzal] 5 mg tablet 5 mg PO DAILY Qty: 30 2RF Referrals Follow up/Referrals: Gurjit Mena MD [Primary Care Provider] - See instructions Activity Restrictions/Add. Instructions Additional Instructions/Restrictions: Your orthopedic surgeon often is going to call you to tell you when and where to see them tomorrow. If you have persistent new or worsening signs or symptoms follow-up with your PCP orthopedic surgeon or return to the ER as needed. Clinical Impressions Clinical Impression: Acute postoperative pain of left knee Print Language Print Language: Fijian Discharge ED Provider: Doni Nava General Adult HPI <VAL Dean - Last Filed: 06/29/24 14:32> General Chief complaint: PAIN Stated complaint: Left Knee pain w/ heat chills/sweats op 06/21/24 Time Seen by Provider: 06/29/24 11:56 Mode of Arrival: Ambulatory Source of Information: Patient Description of Symptoms (Recalled from ER Triage Doc. by RN): pt presents to ED with c/o left knee pain, redness, swelling. symptoms began two days ago. pt reports total left knee replacement on june 21 at [facility]. pt has not had any follow up with surgeon yet. History of Present Illness HPI narrative: Patient presents for evaluation of left knee pain. Patient had a total prosthetic left knee done on 06/21/2024 at [facility] by Dr. Izaguirre. Patient reports that over the last 48 hours she has had increasing pain redness subjective fevers denies drainage chest pain shortness of breath hemoptysis hematochezia melena hematemesis hematuria. She reports that her urinary output is low. She is on a baby aspirin postoperatively. She went to [facility] emergency department last night but ultimately was discharged. She attempted to reach her surgeon but could not so came to the ER here today. Related Data Home Medications ?Medication ?Instructions ?Recorded ?Confirmed estradiol 1 mg tablet 1 mg PO DAILY 08/15/23 06/18/24 trazodone 100 mg tablet 100 mg PO HS 09/04/23 06/18/24 buspirone 10 mg tablet 10 mg PO NEEDED PRN Anxiety 05/25/24 06/18/24 escitalopram oxalate 20 mg tablet 20 mg PO DAILY 05/25/24 06/18/24 albuterol sulfate 90 mcg/actuation 90 mcg inhalation NEEDED PRN SOA 06/10/24 06/18/24 aerosol inhaler (Ventolin HFA) Previous Rx's ?Medication ?Instructions ?Recorded levocetirizine 5 mg tablet (Xyzal) 5 mg PO DAILY #30 tabs 12/10/23 hydrocortisone 2.5 % topical cream 1 applic MA QD-BID PRN hemorrhoids 05/25/24 with perineal applicator #30 grams (Proctosol HC) Allergies Allergy/AdvReac Type Severity Reaction Status Date / Time adhesive tape Allergy Mild Rash Verified 06/18/24 09:15 [facility] <VAL Dean - Last Filed: 06/29/24 14:32> [facility] Disclaimer: The information contained in this section may have been updated after the patient was seen, as this information can be updated by other users. Medical History (Updated 06/29/24 @ 14:29 by VAL Dean) Abnormal cardiovascular stress test Atypical angina Preop testing Sleep apnea Thyroid Nodule Hearing loss in right ear Loose left total knee arthroplasty Chronic sinusitis H/O Eustachian tube dysfunction Hearing difficulty of right ear Dyspnea on exertion FARHEEN (obstructive sleep apnea) Meningioma Seizures Ovarian cyst Breast cancer Hx of thyroid cancer Implantable loop recorder present Tachycardia History of hypertension PTSD (post-traumatic stress disorder) Anxiety Depression Surgical History History of partial thyroidectomy History of loop recorder H/O: knee surgery History of carpal tunnel repair History of cholecystectomy History of abdominal hysterectomy Family History Other Anemia Asthma Cancer Coronary artery disease Diabetes FHx: mental illness Heart attack Hyperlipidemia Hypertension Thyroid disorder Social History Smoking Status: Current every day smoker tobacco type: cigarettes packs per day: 0 alcohol intake: current alcohol intake frequency: holidays/special occasions only counseling provided: none substance use type: denies use current occupational status: unemployed Travel in the last 8 weeks?: None household members: none housing: house marital status: single number of children: 3 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 current occupational exposures/hazards: No caffeine: No Have you lived/traveled outside US in past 30 days?: No Contact w/someone who lives/traveled outside US past 30 days?: No Exposure to someone with infectious disease in past 14 days?: No Do you have a fever (greater than 100.4 F or 38 C)?: No Have you tested positive for COVID-19?: No Exposed to someone with COVID-19 in past 14 days?: No Do you have a sore throat?: No Do you have a cough?: No Do you have any weakness?: No Do you have any diarrhea?: No Are you experiencing any unusual bleeding?: No Do you have any muscle aches/pain?: No Do you have any abdominal pain?: No Are you experiencing loss of taste or smell?: No Other Medical History Have you received the Flu Vaccine for this season: No Have you received the Pneumonia Vaccine: No <VAL Dean - Last Filed: 06/29/24 14:32> ROS Obtained: Yes Systems reviewed as appropriate & no additional complaints except as documented Physical Exam <VAL Dean - Last Filed: 06/29/24 14:32> General General appearance: alert and in no apparent distress Respiratory Respiratory exam: Present normal lung sounds bilaterally Cardiovascular Cardiovascular exam: Present regular rate Neurological Exam Neurological exam: Present alert and oriented X3 Medical Decision Making <VAL Dean - Last Filed: 06/29/24 14:32> Medical Records Medical records reviewed: Yes I reviewed the patient's medical records. Screening: Per USPSTF and CDC recommendations, given the prevalence of disease in our region, it is our hospital?s policy to screen for HIV and viral Hepatitis for all patients aged 18 and over and those with ongoing risk factors. [place] Inquiry Pt receiving controlled substance: No Vital Signs: 06/29/24 11:40 06/29/24 12:30 06/29/24 13:00 Temperature 98.0 F Temperature Source Oral Pulse Rate 69 66 Pulse Rate [Left Radial] 67 Respiratory Rate 12 Blood Pressure 128/87 120/80 Blood Pressure [Right Arm] 124/85 Blood Pressure Mean [Right Arm] 98 02 Sat by Pulse Oximetry 95 96 97 Oxygen Delivery Method Room Air Room Air 06/29/24 13:30 06/29/24 14:00 Temperature Temperature Source Pulse Rate 81 65 Pulse Rate [Left Radial] Respiratory Rate Blood Pressure 124/80 131/92 H Blood Pressure [Right Arm] Blood Pressure Mean [Right Arm] 02 Sat by Pulse Oximetry 96 98 Oxygen Delivery Method Room Air Lab Data Lab results reviewed: Yes I reviewed the patient's lab results. Lab Results 06/29/24 11:50: WBC 7.3, RBC 3.97 L, Hgb 12.2, Hct 36.9 L, MCV 92.9, MCH 30.7, MCHC 33.1, RDW 12.6, Plt Count 392, MPV 9.7, Neut % (Auto) 59.5, Lymph % (Auto) 24.7, [place] % (Auto) 6.8, Eos % (Auto) 7.5, Baso % (Auto) 0.7, Neut # (Auto) 4.4, Lymph # (Auto) 1.8, [place] # (Auto) 0.5, Eos # (Auto) 0.6 H, Baso # (Auto) 0.1, E SR 61 H, D-Dimer 2.13 H, Sodium 136, Potassium 4.3, Chloride 106, Carbon Dioxide 28, Anion Gap 6.3, BUN 13, Creatinine 0.90, Estimated Creat Clear 119, Estimated GFR 67, Est GFR ( Amer) 81, Glucose 91, Calcium 8.9, Total Bilirubin 0.7, AST 44 H, ALT 31, Alkaline Phosphatase 95, C-Reactive Protein 37.3 H, Total Protein 6.9, Albumin 4.0, Globulin 2.9, Albumin/Globulin Ratio 1.4, Procalcitonin 0.038 06/29/24 11:50 06/29/24 11:50 Orders (Tests/Meds): ED MEDICATIONS Discontinued Medications Generic Name Dose Route Start Last Admin Trade Name Thaiq PRN Reason Stop Dose Admin Oxycodone HCl 5 mg 06/29/24 14:29 Oxycodone 5mg Immediate Release Tablet PO 06/29/24 14:30 ONCE ONE ORDERS Category Date Time Status CBC w/Auto Diff [Complete Blood Count Auto Diff] Stat Lab 06/29/24 11:50 Completed CMP [Comprehensive Metabolic Panel] Stat Lab 06/29/24 11:50 Completed CRP [C-Reactive Protein] Stat Lab 06/29/24 11:50 Completed D-Dimer Stat Lab 06/29/24 11:50 Completed ESR [Erythrocyte Sedimentation Rate] Stat Lab 06/29/24 11:50 Completed Procalcitonin Stat Lab 06/29/24 11:50 Completed Blood Culture Stat Micro 06/29/24 12:56 Received CA venous doppler LE BI Routine Y 06/29/24 13:20 Completed Medical Decision Narrative: In summary patient is a 48-year-old female who presents to the emergency department for evaluation of postoperative left knee pain redness and swelling. Patient is hemodynamically stable with a blood pressure 124/85 pulse 67 normal sinus rhythm on the bedside monitor breathing 12 times a minute satting at 95% on room air upon arrival, afebrile at 98. Physical exam is remarkable for some erythema in the medial aspect of the suture line however the suture line itself appears to be intact there does not appear to be fluctuance or dehiscence. Patient has no palpable cords posteriorly. She is neurovascular intact distally. She does have painful range of motion however not out of the level expected postoperatively. It is however very tender to palpation even to light touch. Differential diagnosis includes cellulitis versus infected prosthetic versus expected postoperative course. Initial workup will be conducted with hematologic labs. Initial interventions include Toradol Tylenol ibuprofen for now. I did attempt to contact the orthopedic surgeon however their office appears to be closed for lunch. Will reattempt contact after 1 PM. Initial workup reviewed by me and her white count 7.3 hemoglobin hematocrit 12.2 and 36.9 respectively with an absolute neutrophil count, sed rate 61 CRP is 37.3 procalcitonin 0.038 and the remainder of her hematologic labs are nonactionable.. D-dimer was elevated at 2.13 which is not surprising given her recent TKA however bilateral DVT ultrasound was negative for thrombus. I was finally able to speak to the midlevel provider Sho for Dr. Izaguirre at 1420. We had interactive discussion about patient presentation RICK and management. I shared pictures of the patient's the as well. They will see the patient in their clinic tomorrow and they will contact her to tell her the date and time. Given this patient is appropriate for discharge with close follow-up with her orthopedic surgeon tomorrow and strict return precautions. <Doni Nava MD - Last Filed: 06/29/24 14:45> Vital Signs: 06/29/24 11:40 06/29/24 12:30 06/29/24 13:00 Temperature 98.0 F Temperature Source Oral Pulse Rate 69 66 Pulse Rate [Left Radial] 67 Respiratory Rate 12 Blood Pressure 128/87 120/80 Blood Pressure [Right Arm] 124/85 Blood Pressure Mean [Right Arm] 98 02 Sat by Pulse Oximetry 95 96 97 Oxygen Delivery Method Room Air Room Air 06/29/24 13:30 06/29/24 14:00 Temperature Temperature Source Pulse Rate 81 65 Pulse Rate [Left Radial] Respiratory Rate Blood Pressure 124/80 131/92 H Blood Pressure [Right Arm] Blood Pressure Mean [Right Arm] 02 Sat by Pulse Oximetry 96 98 Oxygen Delivery Method Room Air Lab Data Lab Results 06/29/24 11:50: WBC 7.3, RBC 3.97 L, Hgb 12.2, Hct 36.9 L, MCV 92.9, MCH 30.7, MCHC 33.1, RDW 12.6, Plt Count 392, MPV 9.7, Neut % (Auto) 59.5, Lymph % (Auto) 24.7, [place] % (Auto) 6.8, Eos % (Auto) 7.5, Baso % (Auto) 0.7, Neut # (Auto) 4.4, Lymph # (Auto) 1.8, [place] # (Auto) 0.5, Eos # (Auto) 0.6 H, Baso # (Auto) 0.1, E SR 61 H, D-Dimer 2.13 H, Sodium 136, Potassium 4.3, Chloride 106, Carbon Dioxide 28, Anion Gap 6.3, BUN 13, Creatinine 0.90, Estimated Creat Clear 119, Estimated GFR 67, Est GFR ( Amer) 81, Glucose 91, Calcium 8.9, Total Bilirubin 0.7, AST 44 H, ALT 31, Alkaline Phosphatase 95, C-Reactive Protein 37.3 H, Total Protein 6.9, Albumin 4.0, Globulin 2.9, Albumin/Globulin Ratio 1.4, Procalcitonin 0.038 Orders (Tests/Meds): ED MEDICATIONS Discontinued Medications Generic Name Dose Route Start Last Admin Trade Name Freq PRN Reason Stop Dose Admin Oxycodone HCl 5 mg 06/29/24 14:29 Oxycodone 5mg Immediate Release Tablet PO 06/29/24 14:30 ONCE ONE ORDERS Category Date Time Status CBC w/Auto Diff [Complete Blood Count Auto Diff] Stat Lab 06/29/24 11:50 Completed CMP [Comprehensive Metabolic Panel] Stat Lab 06/29/24 11:50 Completed CRP [C-Reactive Protein] Stat Lab 06/29/24 11:50 Completed D-Dimer Stat Lab 06/29/24 11:50 Completed ESR [Erythrocyte Sedimentation Rate] Stat Lab 06/29/24 11:50 Completed Procalcitonin Stat Lab 06/29/24 11:50 Completed Blood Culture Stat Micro 06/29/24 12:56 Received CA venous doppler LE BI Routine Y 06/29/24 13:20 Completed Medical Decision Narrative: In summary patient is a 48-year-old female who presents to the emergency department for evaluation of postoperative left knee pain redness and swelling. Patient is hemodynamically stable with a blood pressure 124/85 pulse 67 normal sinus rhythm on the bedside monitor breathing 12 times a minute satting at 95% on room air upon arrival, afebrile at 98. Physical exam is remarkable for some erythema in the medial aspect of the suture line however the suture line itself appears to be intact there does not appear to be fluctuance or dehiscence. Patient has no palpable cords posteriorly. She is neurovascular intact distally. She does have painful range of motion however not out of the level expected postoperatively. It is however very tender to palpation even to light touch. Differential diagnosis includes cellulitis versus infected prosthetic versus expected postoperative course. Initial workup will be conducted with hematologic labs. Initial interventions include Toradol Tylenol ibuprofen for now. I did attempt to contact the orthopedic surgeon however their office appears to be closed for lunch. Will reattempt contact after 1 PM. Initial workup reviewed by me and her white count 7.3 hemoglobin hematocrit 12.2 and 36.9 respectively with an absolute neutrophil count, sed rate 61 CRP is 37.3 procalcitonin 0.038 and the remainder of her hematologic labs are nonactionable.. D-dimer was elevated at 2.13 which is not surprising given her recent TKA however bilateral DVT ultrasound was negative for thrombus. I was finally able to speak to the midlevel provider Sho for Dr. Izaguirre at 1420. We had interactive discussion about patient presentation RICK and management. I shared pictures of the patient's the as well. They will see the patient in their clinic tomorrow and they will contact her to tell her the date and time. Given this patient is appropriate for discharge with close follow-up with her orthopedic surgeon tomorrow and strict return precautions. I was consulted by the ANDERS, and we discussed the complexity of the problems being addressed. I approved the treatment and management plan for this patient's care in the Emergency Department, thus performing a substantive portion of the medical decision making. Doni Nava MD Critical Care <VAL Dean - Last Filed: 06/29/24 14:32> Critical Care Time Critical Care Time: No
[2024-06-29 12:11] LABS: Basophils # 0.1 K/mm3 (0-0.2); Basophils % 0.7 % (0.1-2.0); Eosinophils # 0.6 Kmm3 (0.0-0.4); Eosinophils % 7.5 % (0.1-12.0); Hematocrit 36.9 % (37.0-47.0); Hemoglobin 12.2 g/dL (12.2-16.2); Immature Granulocytes # 0.06 10^3uL; Immature Granulocytes % 0.8 %; Lymphocytes # 1.8 K/mm3 (0.7-4.5); Lymphocytes % 24.7 % (10-50); Mean Corpuscular HGB Conc 33.1 g/dL (31.8-35.4); Mean Corpuscular Hemoglobin 30.7 pg (27.0-31.2); Mean Corpuscular Volume 92.9 fl (81-99); Mean Platelet Volume 9.7 fl (7.4-10.4); Monocytes # 0.5 K/mm3 (0.1-1.0); Monocytes % 6.8 % (1.7-9.3); Neutrophils # 4.4 K/mm3 (1.8-7.8); Neutrophils % 59.5 % (37.0-80.0); Nucleated Red Blood Cells # 0 10^3/uL; Nucleated Red Blood Cells % 0 %; Platelet Count 392 K/mm3 (142-424); Red Blood Count 3.97 M/mm3 (4.20-5.40); Red Cell Distribution Width 12.6 % (11.5-17.5); Red Cell Distribution Width-SD 42.8 fL; White Blood Count 7.3 K/mm3 (4.8-10.8)
[2024-06-29 12:19] LABS: Alanine Aminotransferase 31 U/L (12-78); Alkaline Phosphatase 95 U/L (38-126); Aspartate Amino Transferase 44 U/L (14-36); Bilirubin,Total 0.7 mg/dl (0.2-1.3); Calcium 8.9 mg/dl (8.4-10.2); Chloride 106 mmol/L (98-107); Glucose 91 mg/dl (74-100); Potassium 4.3 mmoL/L (3.5-5.1); Sodium 136 mmol/L (136-145); Total Protein,Serum 6.9 g/dl (6.3-8.2)
[2024-06-29 12:20] LABS: Albumin/Globulin Ratio 1.4 (1.1-1.8); Anion Gap 6.3 mEq/L (5-15); Blood Urea Nitrogen 13 mg/dl (7-17); Carbon Dioxide 28 mmol/L (22.0-30.0); Creatinine Clearance Estimated 119 mL/min (50-200); Estimated Glomerular Filt Rate 67 ml/min (>60); GFR (African American) 81 ML/MIN (>60); Globulin 2.9 g/dL (1.3-3.2)
[2024-06-29 12:36] LABS: Procalcitonin 0.038 ng/mL (0.0-2.0)
[2024-06-29 12:48] LABS: Erythrocyte Sedimentation Rate 61 mm/hr (0-20)
[2024-06-29 12:49] LABS: C-Reactive Protein 37.3 mg/L (0-4)
[2024-06-29 13:09] LABS: D-Dimer 2.13 ug/mL (0.0-0.5)
--- NOTE | 2024-06-29 13:09 | PC.NURSE ---
spoke to the nurse at the orthopedics office who sent Dr. Nieves a direct message about the patient
--- NOTE | 2024-06-29 13:20 | CA_ITS ---
FINAL REPORT TECHNIQUE: Bilateral lower extremity venous duplex was performed with augmentation and compression. CLINICAL HISTORY: PT S/P LT TKR ON 06/21/24,C/O LT KNEE PAIN AND EDEMA PT ON BABY ASA FINDINGS: Proper flow is seen throughout the deep venous systems bilaterally. There is no evidence of deep venous thrombosis. IMPRESSION: No evidence of deep venous thrombosis. Reviewed, Interpreted and Dictated by Kiet Donovan MD Transcribed by Sadaf Wylie Authenticated and . [facility]
--- NOTE | 2024-06-29 13:26 | PC.NURSE ---
call made for DVT scan
--- NOTE | 2024-06-29 14:21 | PC.NURSE ---
on phone with surgeons office that pt had surgery with
[2024-06-29] MEDS: OXYCODONE 5MG IMMEDIATE RELEASE TABLET 5 MG PO (14:45)
== END 2024-06-29 15:38 | disposition home or self-care (01) ==
PROVIDERS: Physician Assistant; Emergency Provider Emergency Medicine; PCP Family Medicine
DX: M25.562 Pain in left knee (principal); G89.18 Other acute postprocedural pain; F17.210 Nicotine dependence, cigarettes, uncomplicated; Z96.652 Presence of left artificial knee joint
CPT/HCPCS: 80053; 84145; 85025; 85378; 85651; 86140; 87040; 93970; 99284

== ENCOUNTER 2024-07-27 13:05 | Outpatient (CLI) | payer MEDICAID, SELFPAY ==
--- OUTSIDE RECORDS SUMMARY | 2024-06-04 09:30 | XMS_ITS | Encounter Summary ---
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 Encounter Details Date Type Department Care Team (Late st Contact Info) Description 06/04/2024 9:30 AM EDT Office Visit [facility] Orthopedics - [address] [phone] Ermias Obando PA-C [address] [place] [phone] History of arthroscopic knee surgery, Left (Primary Dx); Left knee pain; Traumatic arthritis of knee, left Social History Tobacco Use Types Packs/Day Years Used Date Smoking Tobacco: Never Smokeless Tobacco: Never Tobacco Cessation:Counseling Given: Not Answered Alcohol Use Standard Drinks/Week Comments Never 0 (1 standard drink = 0.6 oz pur e alcohol) Interpersonal Safety Answer Date Record ed Family or friends hurt you Not on file 03/01 Family or friends insult you Not on file Family or friends threaten you Not on file 0 03/01/2023 Family or friends scream or curse at you Not on file 03/01/2023 Housing Stability Answer Date Recorded Living situation today Not on file Living situation problems Not on file 2023 Family and Community Support Answer Pipe e Recorded Help with Day to Day Activities Not on file 03/01/2023 Feeling Lonely or Isolated Not on file 03/01 Educational Attainment Answer Date Darrian rded Speak language other than Prydeinig at home Not on file 03/01/2023 Want help with school or training Not on file 03/01/2023 Depression Answer Date Recorded PHQ-2 Risk Not on file 03/01/2023 Disabilities Answer Date Recorded Difficulty concentrating Not on file 024 Difficulty doing errands alone Not on file 0 03/01/2023 Substance Use Answer Date Recorded Used prescription meds for non-medical reasons N ot on file 03/01/2023 Used illegal drugs past 12 months Not on file 03/01/2023 Comments No Sex and Gender Information Value Date Recorded Sex Assigned at Not on file Legal Sex Female 5:21 PM CDT Gender Identity Not on file Sexual Orientation Not on file documented as of this encounter Last Filed Vital Signs Vital Sign Reading Time Taken Comments Blood Pressure 114/58 06/04/2024 9:29 AM EDT Pulse 71 06/04/2024 9:29 AM EDT Temperature - - Respiratory Rate - - Oxygen Saturation - - Inhaled Oxygen Concentration - - Weight 104.3 kg (230 lb) 06/04/2024 9:29 AM EDT Height 160 cm (5' 3 ) 06/04/2024 9:29 AM EDT Body Mass Index 40.74 06/04/2024 9:29 AM EDT documented in this encounter Progress Notes * Ermias Obando PA-C - 06/04/2024 9:30 AM EDT Images from the original note were not included. NAME: Ran Ayala CSN: [id number] : 1975 PCP: Marlo Leonardo REASON FOR VISIT Knee Pain (New Patient Left knee) HPI Ran Ayala is a 48 y.o. female New Patient presents for a complaint of chronic left knee pain that has been present for about 17 years. Patient reports history of left knee arthroscopy on 08/04/2023. Patient also had surgery on 12/21/[address] Dumont, he performed a meniscectomy/repair in her left knee. Patient had a lateral release of her left patella on 08/29/2020. Patient reports her knee will give out and buckle causing multiple falls. Patient reports none of her surgeries have helped. She states that Dr. Ellis told her at some point she would need a partial knee replacement. Patient reports constant severe throbbing pain in her anterior knee. Patient reports intermittent burning sensation in the knee. Patient repo rts her symptoms are affecting her daily activities. Patient rates her pain 8/10 in office at rest;she has tried and failed ice, injections and ibuprofen; pain is worse with any walking, standing oreven sitting. Patient reports she has had injections in the past with no relief, and it made the pain worse. Last injection was before July of 2023, last session of physical therapy was 2023. CURRENT MEDICATIONS Current Outpatient Medications Medication Instructions atorvastatin (LIPITOR) 20 mg, oral, Daily busPIRone (BUSPAR) 10 mg, oral, 3 times daily cholecalciferol (VITAMIN D3) 125 mcg (5,000 unit) tablet 1 capsule, oral, Daily diclofenac sodium (VOLTAREN) 75 MG EC tablet 1 tablet, oral, 2 times daily escitalopram (LEXAPRO) 10 MG tablet 1 tablet, oral, Daily estradioL (ESTRACE) 1 mg, oral, Daily fluticasone furoate-vilanteroL (BREO ELLIPTA) 200-25 mcg/dose dsdv inhalation ipratropium (ATROVENT HFA) 17 mcg/actuation inhaler 2 puffs, inhalation ipratropium (ATROVENT) 21 mcg (0.03 %) 0.03% nasal spray 2 sprays, 3 times daily multivitamin, stress formula tab 1 tablet, oral, Daily traZODone (DESYREL) 200 mg, oral, Every Night PRN Ventolin HFA 90 mcg/actuation inhaler 2 puffs ALLERGIES Allergies Allergen Reactions Adhesive Rash and Swelling PAST MEDICAL/SURGICAL HISTORY Past Medical History: Diagnosis Date Anxiety Bradycardia Past Surgical History: Procedure Laterality Date CARDIAC SURGERY KNEE OPEN LATERAL RELEASE SOCIAL HISTORY Social History Tobacco Use Smoking status: Never Smokeless tobacco: Never Substance Use Topics Alcohol use: Never Drug use: Never FAMILY HISTORY Family History Family history unknown: Yes REVIEW OF SYSTEMS General: No recent fever or chills, no recent weight loss or weight gain, no insomnia HEENT: No change in vision, no glasses/contacts, no hearing loss, no tinnitus, no vertigo, no congestion/sinus issues CVS: No chest pain, no palpitations, no edema, no varicose veins Resp: No dyspnea, no wheezing, no cough, no hemoptysis GI: No dysphagia, no nausea, no vomiting, no heart burn, no constipation, no diarrhea : No dysuria, no hematuria, no nocturia, no history of chronic UTI Musculoskeletal: See HPI Derm: No rash, no abrasions, no skin discoloration, no history or MRSA Neuro: See HPI Endo: No cold/heat intolerance Heme: No abnormal bruising or bleeding Psych: No depression, no anxiety, no fatigue, no mood swings. Scribe Attestation: Julia De La Rosa CMA acted as a scribe and transcribed components of the current encounter under the direction of the Attending Provider. I have not been involved in providing any clinical treatments or patient care. Electronically Signed, Julia Yao CMA OBJECTIVE Vitals: 06/04/24 0929 BP: 114/58 Pulse: 71 Weight: 104.3 kg (230 lb) Height: 1.6 m (5' 3 ) Ortho Exam Physical Exam Vitals reviewed. Constitutional: Appearance: Normal appearance. HENT: Head: Normocephalic and atraumatic. Skin: General: Skin is warm and dry. Capillary Refill: Capillary refill takes less than 2 seconds. Findings: No bruising or erythema. Neurological: Mental Status: She is alert and oriented to person, place, and time. Gait: abnormal Psychiatric: Mood and Affect: Mood normal. Behavior: Behavior normal. Left Knee Exam Appearance: No swelling, no warmth, no erythema, no ecchymosis, no deformity Tenderness to palpation: + Medial joint line, + Lateral joint line, - Patellofemoral joint, -MCL, -LCL, -Posterior, - Quad Tendon, - Patellar Tendon, -Hamstring, - Gastrocnemius, + Patellar apprehension ROM: 130 degrees of flexion, full extension with pain, +crepitus Strength: 4/5 quad strength Testing: + Gisselle, -Eugene, -Posterior drawer, -Varus & -Valgus stress Neurovascular: NVI, -Homans Skin: Normal appearance with no discoloration or wounds IMAGING/OUTSIDE REPORTS X-Rays were performed and interpreted today in office of left knee, 2 views weight bearing revealing: XR knee 1 or 2 views left Narrative: HISTORY: chronic left knee pain without recent injury; multiple surgeries reported Impression: degenerative changes with medial compartment narrowing and tiny osteophyte formation; hardware noted in medial tibial plateau from previous knee surgery; no acute bony abnormalities. Images personally reviewed, interpreted and dictated by Ermias Obando PA-C in office today. ASSESSMENT Problem List Items Addressed This Visit None Visit Diagnoses History of arthroscopic knee surgery, Left - Primary 08/04/2023, 01/08/2024, & 09/16/2020 Relevant Orders XR knee 1 or 2 views left Left knee pain Relevant Orders XR knee 1 or 2 views left Traumatic arthritis of knee, left PLAN Return in about 4 days (around 06/08/2024) for DSX Left knee w/ Dr. Nieves. Rest Ice Elevate Return to Clinic if new or worse symptoms occur Patient declined cortisone injections, and submitting for viscosupplementation injections Patient would like to purse surgical treatment Patient is a non-tobacco user Patient's BMI 40.74 kg/m2 Patient is not diabetic Scribe Attestation: Julia De La Rosa CMA acted as a scribe and transcribed components of the current encounter under the direction of the Attending Provider. I have not been involved in providing any clinical treatments or patient care. Electronically Signed, Julia Yao CMA I, Robert Coleman, PA-C attest that I have examined the above patient. I have dictated the exam, diagnosis, and plan to the scribe listed above to be transcribed into this document. I have supplemented the above documentation as warranted. I attest that I have reviewed the above documentation in its entirety and concur. Electronically Signed, Ermias Obando PA-C 06/04/2024 10:30 AM SANCEHZT Schuyler Stewart: Jean-Paul RANDOLPH / FLACO is undergoing an EHR transition as of this date of service. There may be a delay in uploading older paper and EHR chart data to this new system. The above encounter has been documented to the best of the provider's working knowledge of the EHR in conjunction with medical information provided by the patient (and/or the patient's family member). documented in this encounter Plan of Treatment Upcoming Encounters Date Type Department Care Team (Late st Contact Info) Description 07/28/2024 10:15 AM EDT Treatment [facility] OP Physical Therapy [address] [place] [phone] Du You, CORROSION CONTROL ENGINEER 07/30/2024 10:15 AM EDT Treatment [facility] OP Physical Therapy [address] [place] [phone] KenyattaDu flowers, CORROSION CONTROL ENGINEER 09/07/2024 10:00 AM EDT Office Visit [facility] Orthopedics - [address] [phone] Fausto Nieevs MD [address] [place] [address] documented as of this encounter Procedures Procedure Name Priority Date/Time Associated Diagnosis Comments XR KNEE 1 OR 2 VIEWS LEFT Routine 06/04/2024 9:30 AM EDT History of arthroscopic knee surgery, Left Left knee pain documented in this encounter Results * XR knee 1 or 2 views left (06/04/2024 9:30 AM EDT) Anatomical Region Laterality Modality Thigh, Knee, Leg X-Ray Impressions 06/04/2024 1:14 PM EDT degenerative changes with medial compartment narrowing and tiny osteophyte formation; hardware noted in medial tibial plateau from previous knee surgery; no acute bony abnormalities. Images personally reviewed, interpreted and dictated by Erimas Obando PA-C in office today. Narrative 06/04/2024 1:14 PM EDT HISTORY: chronic left knee pain without recent injury; multiple surgeries reported us Ermias Obando PA-C IMG DIAGNOSTIC IMAGING ORDER YAIR Final Result documented in this encounter Visit Diagnoses Diagnosis History of arthroscopic knee surgery, Left- Primary Other postprocedural status Left knee pain Pain in joint, lower leg Traumatic arthritis of knee, left documented in this encounter Care Teams Sales And Support Center Agent Relationship Specialty Start Date End Date Marlo Leonardo [address] [place] [address] PCP - General 12/20/22 06/16/24 documented as of this encounter
--- OUTSIDE RECORDS SUMMARY | 2024-06-04 09:35 | XMS_ITS | Encounter Summary ---
Author Organization [employer] Address [address] [place] [address] Care Team Providers Care Farm Planner Name Role Phone Marlo Leonardo Primary Care Provider [phone] Encounter Details Date Type Department Care Team (Late st Contact Info) Description 06/04/2024 9:35 AM EDT Ancillary Procedure [facility] Orthopedics - [address] [phone] Ermias Obando PA-C [address] [place] [id number] Social History Tobacco Use Types Packs/Day Years Used Date Smoking Tobacco: Never Smokeless Tobacco: Never Alcohol Use Standard Drinks/Week Comments Never 0 [...] Date Darrian rded Speak language other than Argentine at home Not on file 03/01/2023 Want [...] on file documented as of this encounter Plan of Treatment Upcoming Encounters Date Type Department Care Team (Late st Contact Info) Description 07/28/2024 10:15 AM EDT Treatment [facility] OP Physical Therapy [address] [place] [phone] Du You, KICKING MACHINE OPERATOR 07/30/2024 10:15 AM EDT Treatment [facility] Physical Therapy [address] [place] [phone] Du You, KICKING MACHINE OPERATOR 09/07/2024 10:00 AM EDT Office Visit [facility] Orthopedics - [address] [phone] Fausto Nieves MD [facility] [place] [address] documented as of this encounter Procedures Procedure [...] Result documented in this encounter Visit Diagnoses Not on filedocumented in this encounter Care Teams Farm Planner Relationship Specialty Start Date End Date Malissa Marlo [address] [place] [address] PCP - General 12/20/22 06/16/24 documented as of this encounter
--- OUTSIDE RECORDS SUMMARY | 2024-06-08 10:00 | XMS_ITS | Encounter Summary ---
Author Organization [employer] Address [address] [place] [address] Care Team Providers Care Earth Auger Operator Name Role Phone Marlo Leonardo Primary Care Provider [phone] Reason for Referral * Diagnostic X-Ray (Routine) - Closed Specialty Diagnoses / Procedures Referred By William mata Referred To Contact Radiology Diagnoses Pre-op testing Procedures X-ray chest PA and lateral Fausto Nieves MD [address] [place] [address] Phone: tel: fax: [facility] Diagnostic Imaging [address] [place] [phone] Phone: tel: fax: Referral ID Status Reason Start Date Expiration Date V isits Requested Visits Authorized [id number] Closed Continuity of Care 06/08/2024 06/08/2025 1 1 * Other (Routine) - New Request Specialty Diagnoses / Procedures Referred By William mata Referred To Contact Diagnoses Pre-op testing Procedures ECG 12 lead Fausto Nieves MD [address] [place] [address] Phone: tel: fax: Referral ID Status Reason Start Date Expiration Date V isits Requested Visits Authorized [id number] New Request 06/08/2024 06/08/2025 1 1 * CAT Scan (Routine) - Closed Specialty Diagnoses / Procedures Referred By Contac t Referred To Contact Radiology Diagnoses History of arthroscopic knee surgery Traumatic arthritis of knee, left Procedures CT lower extremity without IV contrast left Fausto Nieves MD [address] [place] [address] Phone: tel: fax: [facility] CT Imaging [address] [place] [address] Phone: tel: fax: Referral ID Status Reason Start Date Expiration Date V isits Requested Visits Authorized [id number] Closed Continuity of Care 06/08/2024 09/06/2024 1 1 Reason for Visit * Reason Comments Knee Pain Discuss surgical opt ions for the Left Knee Encounter Details Date Type Department Care Team (Late st Contact Info) Description 06/08/2024 10:00 AM EDT Office Visit [facility] Orthopedics - [address] [phone] Fausto Nieves MD [address] [place], [place] [id number] History of arthroscopic knee surgery, Left (Primary [...] Date Darrian rded Speak language other than [place] Korean at home Not on file 03/01/2023 Want [...] 10:00 AM EDT NAME: Ran Ayala CSN: [id number] : 1975 PCP: Marlo Leonardo REASON FOR [...] CT ANNA ordered. In basket sent to [facility] Procedure scheduled today in office: Left [...] your prescription refills for excessive abuse or care home use. If necessary, you will be referred to paint process engineer. We will monitor your use of scheduled drugs through the KD program. In addition, we will follow the monitoring procedures required by the [facility]. The side effects of Schedule II controlled [...] Info) Description 07/28/2024 10:15 AM EDT Treatment [facility] OP Physical Therapy [address] [place] [phone] Du You, AUTOMATIC WASHER MECHANIC 07/30/2024 10:15 AM EDT Treatment [facility] OP Physical Therapy [address] [place] [phone] Du You, AUTOMATIC WASHER MECHANIC 09/07/2024 10:00 AM EDT Office Visit [facility] Orthopedics - [address] [phone] Fausto Nieves MD [address] [place] [phone] documented as of this encounter Results * [...] ATRIAL RATE (MCT) 46 BPM GE MUSE [place] Interval 206 ms GE MUSE QRS-INTERVAL (MSEC) 96 ms GE MUSE QT Interval 496 ms GE MUSE QTC Interval 434 ms GE MUSE P [place] 54 degrees GE MUSE R AXIS (MCT) 20 degrees GE MUSE T Wave [place] 21 degrees GE MUSE [place] Diagnosis Sinus bradycardia Otherwise normal ECG No previous ECGs available Confirmed by Emigdio CRUZ RICHARD ([id number]) on 06/08/2024 11:45:34 AM GE MUSE 06/08/2024 11:2 7 AM EDT 06/08/2024 11:45 AM EDT Fausto Nieves MD ECG ORDERABLES Final Result GE MUSE * MRSA Screen (06/08/2024 11:13 AM EDT) MRSA by PCR [facility] MRSA Not Detected by PCR MRSA Not Detected by PCR DEVICE ID9 06/08/2024 5:03 PM EDT [facility] Nasal BOTH ANTERIOR NARES / Unknown 06/08/2024 11:13 AM EDT 06/08/2024 11:40 AM EDT Fausto Nieves MD MICROBIOLOGY - GENERAL ORDERAB LES Final Result Performing Organization Address City/[facility]/ZIP Co de Phone Number [facility] [address] [place] [address] * Urinalysis, Reflex Microscopic and Culture If Indicated (06/08/2024 11:13 AM EDT) Color, UA Straw 06/08/2024 11:50 AM EDT [facility] Clarity, UA Clear 06/08/2024 11:50 AM EDT [facility] Specific [place], UA 1.020 1.002 - 1.030 06/08/2024 11:50 AM EDT [facility] pH, UA 6.0 5.0 - 9.0 06/08/2024 11:50 AM EDT [facility] Leukocytes, UA Negative Negative 06/08/2024 11:50 AM EDT [facility] Nitrite, UA Negative Negative 06/08/2024 11:50 AM EDT [facility] Protein, UA Negative Negative 06/08/2024 11:50 AM EDT [facility] Glucose, UA Negative Negative 06/08/2024 11:50 AM EDT [facility] Ketones, UA Negative Negative 06/08/2024 11:50 AM EDT [facility] Bilirubin, UA Negative Negative 06/08/2024 11:50 AM EDT [facility] Blood, UA Negative Negative 06/08/2024 11:50 AM EDT [facility] Urobilinogen, UA 0.2 mg/dL Normal 06/08/2024 11:50 AM EDT [facility] Specimen Source Urine, Clean Catch 06/08/2024 11:50 AM EDT [facility] Urine URINE SPECIMEN COLLECTION, CLEAN CATCH / Unknown 06/08/2024 11:13 AM EDT 06/08/2024 11:40 AM EDT us Fausto S Lizbeth RIZVI URINE ORDERABLES Final Result Performing Organization Address City/State/[facility] Co de Phone Number [facility] [address] [place] [address] * (ABNORMAL) Comprehensive metabolic panel (06/08/2024 11:13 AM EDT) Sodium 138 136 - 145 meq/L 06/08/2024 12:16 PM EDT [facility] Potassium 4.0 3.5 - 5.1 meq/L 06/08/2024 12:16 PM EDT [facility] Chloride 104 98 - 107 meq/L 06/08/2024 12:16 PM EDT [facility] CO2 27 21 - 32 meq/L 06/08/2024 12:16 PM EDT [facility] Calcium 9.2 8.5 - 10.1 mg/dL 06/08/2024 12:16 PM EDT [facility] Glucose 88 70 - 99 mg/dL 06/08/2024 12:16 PM EDT [facility] BUN 11 7 - 18 mg/dL 06/08/2024 12:16 PM EDT [facility] Creatinine 1.19(H) 0.55 - 1.10 mg/dL 06/08/2024 12:16 PM EDT [facility] BUN/Creatinine 9 06/08/2024 12:16 PM EDT [facility] Albumin 3.7 3.4 - 5.0 g/dL 06/08/2024 12:16 PM EDT [facility] Alkaline Phosphatase 99 46 - 116 U/L 06/08/2024 12:16 PM EDT [facility] ALT 19 12 - 78 U/L 06/08/2024 12:16 PM EDT [facility] AST 19 15 - 37 U/L 06/08/2024 12:16 PM EDT [facility] Total Bilirubin 0.3 0.2 - 1.0 mg/dL 06/08/2024 12:16 PM EDT [facility] Protein, Total 7.6 6.4 - 8.2 gm/dL 06/08/2024 12:16 PM EDT [facility] Anion Gap 11 - 06/08/2024 12:16 PM EDT [facility] A/G Ratio 0.9 06/08/2024 12:16 PM EDT [facility] Globulin 3.9 g/dL 06/08/2024 12:16 PM EDT [facility] Osmolality Calc 274.5 mOsm/kg 12:16 PM T [facility] eGFR (mL/min/1.73m2) 57(L) >=60 mL/min/1.7 3m2 06/08/2024 12:16 PM EDT [facility] Comment:ESTIMATED GFR IS NOT ACCURATE CREATININE CLEARANCE IN PREDICTING GLOMERULAR FILTRATION RATE. ESTIMATED GFR IS NOT APPLICABLE FOR DIALYSIS PATIENTS. Blood Venipuncture / Unknown 06/08/2024 11:13 AM EDT 06/08/2024 11:41 AM EDT us Fausto S Lizbeth RIZVI LAB BLOOD ORDERABLES Final Res ult [facility] [address] [place] [address], [facility] [phone] * (ABNORMAL) CBC with automated diff (06/08/2024 11:13 AM EDT) WBC 7.2 4.8 - 10.8 K/ L 06/08/2024 11:45 AM EDT [facility] RBC 4.59 3.50 - 5.20 M/ L 06/08/2024 11:45 AM EDT [facility] Hemoglobin 14.0 11.7 - 15.8 GM/DL 06/08/2024 11:45 AM EDT [facility] Hematocrit 42.0 35.0 - 47.0 % 06/08/2024 11:45 AM EDT [facility] MCV 92 81 - 101 fL 06/08/2024 11:45 AM EDT [facility] MCH 30.5 27.0 - 34.0 pg 06/08/2024 11:45 AM EDT [facility] MCHC 33.3 32.0 - 36.0 GM/DL 06/08/2024 11:45 AM EDT [facility] RDW 12.3 11.5 - 14.5 % 06/08/2024 11:45 AM EDT [facility] Platelets 297 150 - 400 K/CU MM 06/08/2024 11:45 AM EDT [facility] MPV 10.3 9.4 - 12.4 fL 06/08/2024 11:45 AM EDT [facility] Nucleated Red Blood Cell 0.0 0 - 0.2 % 06/08/2024 11:45 AM EDT [facility] % Neutros 61 37 - 80 % 06/08/2024 11:45 AM EDT [facility] % Lymphs 31 10 - 50 % 06/08/2024 11:45 AM EDT [facility] % Monos 5 5 - 13 % 06/08/2024 11:45 AM EDT [facility] % Eos 3 0 - 7 % 06/08/2024 11:45 AM EDT [facility] % Baso 0 0 - 3 % 06/08/2024 11:45 AM EDT [facility] NRBC Absolute <0.01 0 - 0.012 K/ul 06/08/2024 11:45 AM EDT [facility] # Neutros 4.36 2.00 - 6.90 K/ L 06/08/2024 11:45 AM EDT [facility] # Lymphs 2.23 0.60 - 3.40 K/ L 06/08/2024 11:45 AM EDT [facility] # Monos 0.37 0.00 - 0.90 K/ L 06/08/2024 11:45 AM EDT [facility] # Eos 0.19 0.00 - 0.70 K/ L 06/08/2024 11:45 AM EDT [facility] # Baso 0.03 0.00 - 0.20 K/ L 06/08/2024 11:45 AM EDT [facility] Immature Granulocytes-Re lative 0.30 % 06/08/2024 11:45 AM EDT [facility] # IG 0.02(H) 0.00 - 0.00 K/uL 06/08/2024 11:45 AM EDT [facility] Blood Venipuncture / Unknown 06/08/2024 11:13 AM EDT 06/08/2024 11:40 AM EDT Narrative [facility] - 06/08/2024 11:45 AM EDT When [...] MD LAB BLOOD ORDERABLES Final Res ult [facility] [address] [place] [id number] [phone] * X-ray chest PA and lateral (06/08/2024 [...] left documented in this encounter Care Teams Earth Auger Operator Relationship Specialty Start Date End Date Marlo Leonardo [address] [place] [address] PCP - General 12/20/22 06/16/24 documented as of this encounter
--- OUTSIDE RECORDS SUMMARY | 2024-06-08 11:00 | XMS_ITS | Encounter Summary ---
Author Organization [employer] Address [address] [place] [address] Care Team Providers Care Medical Billing Representative Name Role Phone Marlo Leonardo Primary Care Provider [phone] Reason for Referral * Other (Routine) - New Request Specialty Diagnoses / Procedures Referred By Contmaddie mata Referred To Contact Diagnoses Pre-op testing Procedures ECG 12 lead Fausto Nieves MD [address] [place] [address] Phone: tel: fax: Referral ID Status Reason Start Date Expiration Date V isits Requested Visits Authorized [id number] New Request 06/08/2024 06/08/2025 1 1 Reason for Visit * Other (Routine) - New Request Specialty Diagnoses / Procedures Referred By William mata Referred To Contact Diagnoses Pre-op testing Procedures ECG 12 lead Fausto Nieves MD [address] [place] [address] Phone: tel: fax: Referral ID Status Reason Start Date Expiration Date V isits Requested Visits Authorized [id number] New Request 06/08/2024 06/08/2025 1 1 Encounter Details Date Type Department Care Team (Late st Contact Info) Description 06/08/2024 11:00 AM EDT Hospital Encounter [facility] [address] [place] [address] Fasuto Nieves MD [address] [place] [address] Pre-op testing Discharge Disposition: Home or Self Care Social History Tobacco Use Types Packs/Day Years [...] Date Darrian rded Speak language other than Bahamian at home Not on file 03/01/2023 Want [...] on file documented as of this encounter Medications at Time of Discharge aspirin 81 MG EC tablet Take 1 tablet (81 mg total) by mouth 2 (two) times daily. 60 tablet 06/22/2024 05/06/202 6 busPIRone (BUSPAR) 10 MG tablet Take 1 tablet (10 mg total) by mouth 3 (three) times daily. cholecalciferol (VITAMIN D3) 125 mcg (5,000 unit) tablet Take 1 capsule by mouth daily. escitalopram (LEXAPRO) 20 MG tablet Take 1 tablet (20 mg total) by mouth daily. estradioL (ESTRACE) 1 MG tablet Take 1 tablet (1 mg total) by mouth daily. ferrous sulfate 325 (65 FE) MG EC tablet Take 1 tablet (325 mg total) by mouth daily. 30 tablet 06/23/2024 6 fluticasone furoate-vilanter oL (BREO ELLIPTA) 200-25 mcg/dose dsdv Inhale 1 puff by mouth daily. ipratropium (ATROVENT HFA) 17 mcg/actuation inhaler Inhale 2 puffs by mouth as needed for wheezing. multivitamin per tablet Take 1 tablet by mouth daily ( Stress formula ). traZODone (DESYREL) 100 MG tablet Take 2 tablets (200 mg total) by mouth every night as needed. Ventolin HFA 90 mcg/actuation inhaler Inhale 2 puffs by mouth every 4 (four) hours as needed for shortness of breath or wheezing. acetaminophen (Tylenol Extra Strength) 500 MG tablet Take 2 tablets (1,000 mg total) by mouth every 8 (eight) hours for 10 days. 60 tablet 06/22/2024 5 docusate sodium (Colace) 100 MG capsule Take 1 capsule (100 mg total) by mouth 2 (two) times daily for 10 days. 20 capsule 06/22/2024 5 meloxicam (MOBIC) 15 MG tablet Take 1 tablet (15 mg total) by mouth daily for 30 doses. 30 tablet 06/22/2024 5 oxyCODONE (ROXICODONE) 5 MG immediate release tablet Take 1 tablet (5 mg total) by mouth every 4 (four) hours as needed for pain (severe post operative pain) for up to 7 days. Max Daily Amount: 30 mg 42 tablet 06/22/2024 5 pantoprazole (PROTONIX) 40 MG tablet Take 1 tablet (40 mg total) by mouth daily for 30 days. 30 tablet 06/22/2024 traMADoL (Ultram) 50 mg tablet Take 1 tablet (50 mg total) by mouth every 8 (eight) hours as needed for pain (for mild to moderate post operative pain) for up to 7 days. Max Daily Amount: 150 mg 21 tablet 06/22/2024 atorvastatin (LIPITOR) 20 MG tablet Take 1 tablet (20 mg total) by mouth daily. 12/15/2023 5 diclofenac sodium (VOLTAREN) 75 MG EC tablet Take 1 tablet (75 mg total) by mouth 2 (two) times daily. 04/14/2023 5 ipratropium (ATROVENT) 21 mcg (0.03 %) 0.03% nasal spray 2 sprays 3 (three) times daily. 5 multivitamin, stress formula tab Take 1 tablet by mouth daily. documented as of this encounter Plan of Treatment Upcoming Encounters Date Type Department Care Team (Late st Contact Info) Description 07/28/2024 10:15 AM EDT Treatment [facility] OP Physical Therapy [address] [place] [phone] Du You, SURJIT 07/30/2024 10:15 AM EDT Treatment [facility] OP Physical Therapy [address] [place] [phone] Du You, RN MILITARY 09/07/2024 10:00 AM EDT Office Visit [facility] Orthopedics - [address] [phone] Fausto Nieves MD [address] [place] [address] documented as of this encounter Procedures Procedure Name Priority Date/Time Associated Diagnosis Comments FS_MODEL_IP_ECG 12-LEAD Routine 06/08/2024 11:27 AM EDT Pre-op testing documented in this encounter Results * ECG 12 lead (06/08/2024 11:27 AM EDT) VENTRICULAR RATE EKG/MIN 46 BPM GE MUSE ATRIAL RATE (MCT) 46 BPM GE MUSE [place] Interval 206 ms GE MUSE QRS-INTERVAL (MSEC) 96 ms GE MUSE QT Interval 496 ms GE MUSE QTC Interval 434 ms GE MUSE P [place] 54 degrees GE MUSE R AXIS (MCT) 20 degrees GE MUSE T Wave [place] 21 degrees GE MUSE [place] Diagnosis Sinus bradycardia Otherwise normal ECG No previous ECGs available Confirmed by Emigdio CRUZ, KEEGAN ([id number]) on 06/08/2024 11:45:34 AM GE MUSE 06/08/2024 11:2 7 AM EDT 06/08/2024 11:45 AM EDT us Fausto S Lizbeth RIZVI ECG ORDERABLES Final Result GE MUSE documented in this encounter Visit Diagnoses Diagnosis Pre-op testing Unspecified pre-operative examination documented in this encounter Care Teams Medical Billing Representative Relationship Specialty Start Date End Date Marlo Leonardo [address] [place] [address] PCP - General 12/20/22 06/16/24 documented as of this encounter
--- OUTSIDE RECORDS SUMMARY | 2024-06-08 11:01 | XMS_ITS | Encounter Summary ---
Author Organization [employer] Address [address] [place] [address] Care Team Providers Care Mortgage Loan Reviewer Name Role Phone Marlo Leonardo Primary Care Provider [phone] Reason for Referral * Diagnostic X-Ray (Routine) - Closed Specialty Diagnoses / Procedures Referred By William mata Referred To Contact Radiology Diagnoses Pre-op testing Procedures X-ray chest PA and lateral Fausto Nieves MD [address] [place] [address] Phone: tel: fax: [facility] [address] [place] [phone] Phone: tel: fax: Referral ID Status Reason Start Date Expiration Date V isits Requested Visits Authorized [id number] Closed Continuity of Care 06/08/2024 06/08/2025 1 1 Reason for Visit * Diagnostic X-Ray (Routine) - Closed Specialty Diagnoses / Procedures Referred By William mata Referred To Contact Radiology Diagnoses Pre-op testing Procedures X-ray chest PA and lateral Fausto Nieves MD [address] [place] [address] Phone: tel: fax: [facility] [address] [place] [address] Phone: tel: fax: Referral ID Status Reason Start Date Expiration Date V isits Requested Visits Authorized [id number] Closed Continuity of Care 06/08/2024 06/08/2025 1 1 Encounter Details Date Type Department Care Team (Late st Contact Info) Description 06/08/2024 11:01 AM EDT - 06/08/2024 11:59 PM EDT Hospital Encounter [facility] [address] [place] [address] Fausto Nieves MD [address] [place] [address] Pre-op testing Discharge Disposition: Home or [...] Date Darrian rded Speak language other than Guamanian at home Not on file 03/01/2023 Want [...] Daily Amount: 30 mg 42 tablet 06/22/2024 pantoprazole (PROTONIX) 40 MG tablet Take 1 [...] Info) Description 07/28/2024 10:15 AM EDT Treatment [facility] OP Physical Therapy [address] [place] [phone] Du You, YOLK SPRAY DRIER 07/30/2024 10:15 AM EDT Treatment [facility] Physical Therapy [address] [place] [phone] Du You, YOLK SPRAY DRIER 09/07/2024 10:00 AM EDT Office Visit [facility] Orthopedics - [address] [phone] Fausto Nieves MD [address] [place] [address] documented as of this encounter Procedures Procedure [...] examination documented in this encounter Care Teams Mortgage Loan Reviewer Relationship Specialty Start Date End Date Marlo Leonardo [address] [place] [address] PCP - General 12/20/22 06/16/24 documented as of this encounter
--- OUTSIDE RECORDS SUMMARY | 2024-06-08 11:45 | XMS_ITS | Encounter Summary ---
Author Organization [facility] [employer] Address [address] [place] [address] Care Team Providers Care Offal Trimmer Name Role Phone Marlo Leonardo Primary Care Provider [phone] Encounter Details Date Type Department Care Team (Late st Contact Info) Description 06/08/2024 11:45 AM EDT Lab Patient Walk-In [facility] [address] [place] [address] Fausto Nieves MD [address] [place] [address] Pre-op testing Social History Tobacco Use Types Packs/Day Years [...] Date Darrian rded Speak language other than Nicaraguan at home Not on file 03/01/2023 Want [...] Info) Description 07/28/2024 10:15 AM EDT Treatment [facility] OP Physical Therapy [address] [place] [phone] Du You, MOTOR OPERATOR 07/30/2024 10:15 AM EDT Treatment [facility] Physical Therapy [address] [place] [phone] Du You, MOTOR OPERATOR 09/07/2024 10:00 AM EDT Office Visit [facility] Orthopedics - [address] [phone] Fausto Nieves MD [address] [place] [address] documented as of this encounter Procedures Procedure Name Priority Date/Time Associated Diagnosis Comments CBC W/ AUTO DIFF Routine 06/08/2024 11:1 3 AM EDT Pre-op testing URINALYSIS, REFLEX MICROSCOPIC AND CULTURE IF INDICATED Routine 06/08/2024 11:13 AM EDT Pre-op testing MRSA SCREEN Routine 06/08/2024 11:13 AM EDT Pre-op testing COMPREHENSIVE METABOLIC PANEL Routine 06/08/2024 11:13 AM EDT Pre-op testing documented in this encounter Results * MRSA Screen (06/08/2024 11:13 AM EDT) MRSA by PCR [facility] MRSA Not Detected by PCR MRSA Not Detected by PCR DEVICE [email or web address] 06/08/2024 5:03 PM EDT [facility] Nasal BOTH ANTERIOR NARES / Unknown 06/08/2024 11:13 AM EDT 06/08/2024 11:40 AM EDT us Fausto S Lizbeth RIZVI MICROBIOLOGY - GENERAL ORDERAB LES Final Result [facility] [address] [phone] * Urinalysis, Reflex Microscopic and Culture If Indicated (06/08/2024 11:13 AM EDT) Color, UA Straw 06/08/2024 11:50 AM EDT [facility] Clarity, UA Clear 06/08/2024 11:50 AM EDT [facility] Specific [place], UA 1.020 1.002 - 1.030 06/08/2024 11:50 AM EDT [facility] pH, UA 6.0 5.0 - 9.0 06/08/2024 11:50 AM EDT [facility] Leukocytes, UA Negative Negative 06/08/2024 11:50 AM EDT [facility] Nitrite, UA Negative Negative 06/08/2024 11:50 AM EDT [facility] Protein, UA Negative Negative 06/08/2024 11:50 AM EDT [facility] Glucose, UA Negative Negative 06/08/2024 11:50 AM EDT [facility] Ketones, UA Negative Negative 06/08/2024 11:50 AM EDT [facility] Bilirubin, UA Negative Negative 06/08/2024 11:50 AM EDT [facility] Blood, UA Negative Negative 06/08/2024 11:50 AM EDT [facility] Urobilinogen, UA 0.2 mg/dL Normal 06/08/2024 11:50 AM EDT [facility] Specimen Source Urine, Clean Catch 06/08/2024 11:50 AM EDT [facility] Urine URINE SPECIMEN COLLECTION, CLEAN CATCH / Unknown 06/08/2024 11:13 AM EDT 06/08/2024 11:40 AM EDT us Fausto Denise Nieves MD URINE ORDERABLES Final Result [facility] [address] [place] [address], [facility] [phone] * (ABNORMAL) Comprehensive metabolic panel (06/08/2024 11:13 AM EDT) Sodium 138 136 - 145 meq/L 06/08/2024 12:16 PM EDT [facility] Potassium 4.0 3.5 - 5.1 meq/L 06/08/2024 12:16 PM EDT [facility] Chloride 104 98 - 107 meq/L 06/08/2024 12:16 PM EDT [facility] CO2 27 21 - 32 meq/L 06/08/2024 12:16 PM EDT [facility] Calcium 9.2 8.5 - 10.1 mg/dL 06/08/2024 12:16 PM EDT [facility] Glucose 88 70 - 99 mg/dL 06/08/2024 12:16 PM EDT [facility] BUN 11 7 - 18 mg/dL 06/08/2024 12:16 PM EDT [facility] Creatinine 1.19(H) 0.55 - 1.10 mg/dL 06/08/2024 12:16 PM EDT [facility] BUN/Creatinine 9 06/08/2024 12:16 PM EDT [facility] Albumin 3.7 3.4 - 5.0 g/dL 06/08/2024 12:16 PM EDT [facility] Alkaline Phosphatase 99 46 - 116 U/L 06/08/2024 12:16 PM EDT [facility] ALT 19 12 - 78 U/L 06/08/2024 12:16 PM EDT [facility] AST 19 15 - 37 U/L 06/08/2024 12:16 PM EDT [facility] Total Bilirubin 0.3 0.2 - 1.0 mg/dL 06/08/2024 12:16 PM EDT [facility] Protein, Total 7.6 6.4 - 8.2 gm/dL 06/08/2024 12:16 PM EDT [facility] Anion Gap 11 - 06/08/2024 12:16 PM EDT [facility] A/G Ratio 0.9 06/08/2024 12:16 PM EDT [facility] Globulin 3.9 g/dL 06/08/2024 12:16 PM EDT [facility] Osmolality Calc 274.5 mOsm/kg 12:16 PM EDT [facility] eGFR (mL/min/1.73m2) 57(L) >=60 mL/min/1.7 3m2 06/08/2024 12:16 PM EDT [facility] Comment:ESTIMATED GFR IS NOT ACCURATE CREATININE CLEARANCE IN PREDICTING GLOMERULAR FILTRATION RATE. ESTIMATED GFR IS NOT APPLICABLE FOR DIALYSIS PATIENTS. Blood Venipuncture / Unknown 06/08/2024 11:13 AM EDT 06/08/2024 11:41 AM EDT us Fausto Nieves MD LAB BLOOD ORDERABLES Final Res ult [facility] [address] [id number] [phone] * (ABNORMAL) CBC with automated diff (06/08/2024 11:13 AM EDT) WBC 7.2 4.8 - 10.8 K/ L 06/08/2024 11:45 AM EDT [facility] RBC 4.59 3.50 - 5.20 M/ L 06/08/2024 11:45 AM EDT [facility] Hemoglobin 14.0 11.7 - 15.8 GM/DL 06/08/2024 11:45 AM EDT [facility] Hematocrit 42.0 35.0 - 47.0 % 06/08/2024 11:45 AM EDT [facility] MCV 92 81 - 101 fL 06/08/2024 11:45 AM EDT [facility] MCH 30.5 27.0 - 34.0 pg 06/08/2024 11:45 AM EDT [facility] MCHC 33.3 32.0 - 36.0 GM/DL 06/08/2024 11:45 AM EDT [facility] RDW 12.3 11.5 - 14.5 % 06/08/2024 11:45 AM EDT [facility] Platelets 297 150 - 400 K/CU MM 06/08/2024 11:45 AM EDT [facility] MPV 10.3 9.4 - 12.4 fL 06/08/2024 11:45 AM EDT [facility] Nucleated Red Blood Cell 0.0 0 - 0.2 % 06/08/2024 11:45 AM EDT [facility] % Neutros 61 37 - 80 % 06/08/2024 11:45 AM EDT [facility] % Lymphs 31 10 - 50 % 06/08/2024 11:45 AM EDT [facility] % Monos 5 5 - 13 % 06/08/2024 11:45 AM EDT [facility] % Eos 3 0 - 7 % 06/08/2024 11:45 AM EDT [facility] % Baso 0 0 - 3 % 06/08/2024 11:45 AM EDT [facility] NRBC Absolute <0.01 0 - 0.012 K/ul 06/08/2024 11:45 AM EDT [facility] # Neutros 4.36 2.00 - 6.90 K/ L 06/08/2024 11:45 AM EDT [facility] # Lymphs 2.23 0.60 - 3.40 K/ L 06/08/2024 11:45 AM EDT [facility] # Monos 0.37 0.00 - 0.90 K/ L 06/08/2024 11:45 AM EDT [facility] # Eos 0.19 0.00 - 0.70 K/ L 06/08/2024 11:45 AM EDT [facility] # Baso 0.03 0.00 - 0.20 K/ L 06/08/2024 11:45 AM EDT [facility] Immature Granulocytes-Re lative 0.30 % 06/08/2024 11:45 AM EDT [facility] # IG 0.02(H) 0.00 - 0.00 K/uL 06/08/2024 11:45 AM EDT [facility] Blood Venipuncture / Unknown 06/08/2024 11:13 AM EDT 06/08/2024 11:40 AM EDT Narrative [facility] - 06/08/2024 11:45 AM EDT [...] MD LAB BLOOD ORDERABLES Final Res ult [facility] [address] [place] [address], [facility] [phone] documented in this encounter Visit Diagnoses Diagnosis Pre-op testing Unspecified pre-operative examination documented in this encounter Care Teams Offal Trimmer Relationship Specialty Start Date End Date Marlo Leonardo [address] [place] [address] PCP - General 12/20/22 06/16/24 documented as of this encounter
--- OUTSIDE RECORDS SUMMARY | 2024-06-14 17:12 | XMS_ITS | Encounter Summary ---
Author Organization [employer] Address [address] [place] [address] Care Team Providers Care Regulatory Affairs Assistant Name Role Phone Marlo Leonardo Primary Care Provider [phone] Reason for Referral * CAT Scan (Routine) - Closed Specialty Diagnoses / Procedures Referred By William mata Referred To Contact Radiology Diagnoses History of arthroscopic knee surgery Traumatic arthritis of knee, left Procedures CT lower extremity without IV contrast left Fausto Nieves MD [address] [place] [address] Phone: tel: fax: [facility] CT [facility] [address] [place] [address] Phone: tel: fax: Referral ID Status Reason Start Date Expiration Date V isits Requested Visits Authorized [id number] Closed Continuity of Care 06/08/2024 09/06/2024 1 1 Reason for Visit * CAT Scan (Routine) - Closed Specialty Diagnoses / Procedures Referred By William mata Referred To Contact Radiology Diagnoses History of arthroscopic knee surgery Traumatic arthritis of knee, left Procedures CT lower extremity without IV contrast left Fausto Nieves MD [address] [place] [address] Phone: tel: fax: [facility] CT [facility] [address] [place] [address] Phone: tel: fax: Referral ID Status Reason Start Date Expiration Date V isits Requested Visits Authorized [id number] Closed Continuity of Care 06/08/2024 09/06/2024 1 1 Encounter Details Date Type Department Care Team (Late st Contact Info) Description 06/14/2024 5:12 PM EDT - 06/14/2024 11:59 PM EDT Hospital Encounter [facility] [address] [place] [address] Fausto Nieves MD [address] [place] [address] History of arthroscopic knee surgery, Left; [...] Info) Description 07/28/2024 10:15 AM EDT Treatment [facility] OP Physical Therapy [address] [place] [phone] Du You, SURJIT 07/30/2024 10:15 AM EDT Treatment [facility] Physical Therapy [address] [place] [phone] Du You, SHOE REPAIRER HELPER 09/07/2024 10:00 AM EDT Office Visit [facility] Orth[facility]ics - [address] [phone] Fausto Nieves MD [address] [place] [address] documented as of this encounter Procedures Procedure [...] left documented in this encounter Care Teams Regulatory Affairs Assistant Relationship Specialty Start Date End Date Taylor [address]ardofranholli [address] [place] [address] [place] [address] PCP - General 12/20/22 06/16/24 documented as of this encounter
--- OUTSIDE RECORDS SUMMARY | 2024-06-21 06:06 | XMS_ITS | Encounter Summary ---
Author Organization [employer] Address [address] [place] [address] Care Team Providers Care Customer Service Driver Name Role Phone Gurjit Mena MD Primary Care Provider [phone] Reason for Referral * Consultation (Routine) - Authorized Specialty Diagnoses / Procedures Referred By William mata Referred To Contact Physical Therapy Diagnoses Status post left knee replacement Fausto Jacobo MD [address] [place] [address] Phone: tel: fax: Referral ID Status Reason Start Date Expiration Date Visits Requested Visits Authorized [id number] Authorized Specialty Services Required 06/21/2024 08/20/2024 15 15 Reason for Visit * Auth/Cert (Routine) Specialty Diagnoses / Procedures Referred By William mata Referred To Contact Diagnoses 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 Procedures NV ARTHRP KNE CONDYLE&PLATU MEDIAL&LAT COMPARTMENTS ARTHROPLASTY, KNEE, ROBOT-ASSISTED Fausto Jacobo MD [address] [place], [place] [id number] Phone: tel: fax: Referral ID Status Reason Start Date Expiration Date Visits Re quested Visits Authorized [id number] 06/08/2024 1 1 Encounter Details Date Type Department Care Team (Late st Contact Info) Description 06/21/2024 6:06 AM EDT - 06/22/2024 1:30 PM EDT Hospital Encounter [facility] [address] [place] [address] Fausto Jacobo MD [address] [place] [address] Status post left knee replacement with ANNA (Primary Dx); Traumatic arthritis of left knee Discharge Disposition: Home or Self Care Social History Tobacco Use Types Packs/Day Years Used Date Smoking Tobacco: Never Smokeless Tobacco: Never Alcohol Use Standard Drinks/Week Comments Not Currently 0 (1 standard drink = 0.6 oz pur e alcohol) Utilities Answer Date Recorded In the past 12 months, has t he electric, gas, oil, or water company threatened to shut off services in your home? No 06/21/2024 Interpersonal Safety Answer Date Record ed How often does anyone, tasia jewell family and friends, physically hurt you? Never 06/21/2024 How often does anyone, tasia jewell family and friends, insult or talk down to you? Never 06/21/2024 How often does anyone, tasia jewell family and friends, threaten you with harm? Never 06/21/2024 How often does anyone, tasia jewell family and friends, scream or curse at you? Never 06/21/2024 Housing Stability Answer Date Recorded What is your living situation today? I have a [place] home place to live 06/21/[address] you li ve. Do you have problems with any of the following? None of the above 06/21/2024 Food Insecurity Answer Date Recorded Within the past 12 months, y ou worried that your food would run out before you got money to buy more. Never true 06/21/2024 Within the past 12 months, t he food you bought just didn't last and you didn't have money to get more. Never true 06/21/2024 Transportation Needs Answer Date Record ed In the past 12 months, has l ack of reliable transportation kept you from medical appointments, meetings, work or from getting things needed for daily living? No 06/21/2024 Financial Resource Strain Answer Date R ecorded How hard is it for you to pa y for the very basics like food, housing, medical care, and heating? Would you say it is: Not hard at all 06/21/2024 Employment Answer Date Recorded Do you want help finding or keeping work or a job? I do not need or want help 06/21/2024 Family and Community Support Answer Pipe e Recorded If for any reason you need h elp with day-to-day activities such as bathing, preparing meals, shopping, managing finances, etc., do you get the help you need? I get all the help I need 06/21/2024 Feeling Lonely or Isolated 0 06/21 Educational Attainment Answer Date Darrian rded Do you speak a language other than Montenegrin at [facility]? No 06/21/2024 Do you want help with school or training? For example, starting or completing job training or getting a high school diploma, GED or equivalent. No 06/21/2024 Physical Activity Answer Date Recorded Number of minutes of exercise per week 210 06/21/2024 Alcohol Use Answer Date Recorded 5 or More Drinks Per Day Past 12 Months 0 06/21/2024 Depression Answer Date Recorded Calculation of above two rows 0 Stress Answer Date Recorded Stress means a situation in which a person feels tense, restless, nervous, or anxious, or is unable to sleep at night because his or her mind is troubled all the time. Do you feel this kind of stress these days? Not at all 06/21/2024 Disabilities Answer Date Recorded Because of a physical, menta l, or emotional condition, do you have serious difficulty concentrating, remembering, or making decisions? (5 years or older) No 06/21/2024 Because of a physical, menta l, or emotional condition, do you have difficulty doing errands alone such as visiting a doctor's office or shopping? (15 years or older) No 06/21/2024 Substance Use Answer Date Recorded How many times in the past y ear have you used prescription drugs for non-medical reasons? Never 06/21/2024 How many times in the past year have you used [place] legal drugs? Never 06/21/2024 Comments No Sex and Gender Information Value Date Recorded Sex Assigned at Not on file Legal Sex Female 5:21 PM CDT Gender Identity Not on file Sexual Orientation Not on file documented as of this encounter Last Filed Vital Signs Vital Sign Reading Time Taken Comments Blood Pressure 95/65 06/22/2024 8:07 AM EDT Pulse 66 06/22/2024 8:07 AM EDT Temperature 36.8 C (98.2 F) 06/22/2024 8:07 AM EDT Respiratory Rate 18 06/22/2024 8:07 AM EDT Oxygen Saturation 95% 06/22/2024 8:07 AM EDT Inhaled Oxygen Concentration 21% 06/21/2024 1 0:31 PM EDT Weight 103 kg (227 lb) 06/21/2024 6:37 AM EDT Height 160 cm (5' 3 ) 06/21/2024 6:37 AM EDT Body Mass Index 40.21 06/21/2024 6:37 AM EDT documented in this encounter Discharge Summaries * Fany Jiang NP - 06/22/2024 8:54 AM EDT Patient Name: Ran Kamara : 1975 Date of Admission: 06/21/2024 Date of Discharge: No discharge date for patient encounter. Primary Care Physician: Gurjit Mena MD Consultations: Discharge Diagnoses: Status post left knee replacement Reason for Admission: Left knee osteoarthritis and [facility] Hospital Course: Admitted for Left total knee arthroplasty with dr jacobo on 06/21/24. Vitals stable today, pain controlled and met goals set by surgeon for d/c home today with no events of bleeding or medical issues while here overnight and cleared to go home and follow activity and surgical site care as recommended by surgeon with close PCP follow up. Studies Performed: LEFT KNEE SERIES HISTORY: Joint pain. Recent surgery . COMPARISON: June 04, 2024. FINDINGS: A two view exam demonstrates surgical changes of total knee arthroplasty. The hardware has a normal appearance. No fracture is identified. IMPRESSION: Surgical changes of arthroplasty without hardware complication. Images reviewed, interpreted, and dictated by Dr. Talon Ruiz. Transcribed by Lacie Edwards PA-C. Procedures Performed: Left total knee arthroplasty Discharge Medications: Your medication list START taking these medications Instructions Comments Quantity Refills acetaminophen 500 MG tablet Commonly known as: Tylenol Extra Strength Take 2 tablets (1,000 mg total) by mouth every 8 (eight) hours for 10 days. 60 tablet 0 aspirin 81 MG EC tablet Take 1 tablet (81 mg total) by mouth 2 (two) times daily. 60 tablet 0 docusate sodium 100 MG capsule Commonly known as: Colace Take 1 capsule (100 mg total) by mouth 2 (two) times daily for 10 days. 20 capsule 0 ferrous sulfate 325 (65 FE) MG EC tablet Start taking on: June 23, 2024 Take 1 tablet (325 mg total) by mouth daily. 30 tablet 0 meloxicam 15 MG tablet Commonly known as: MOBIC Take 1 tablet (15 mg total) by mouth daily for 30 doses. 30 tablet 0 oxyCODONE 5 MG immediate release tablet Commonly known as: ROXICODONE Take 1 tablet (5 mg total) by mouth every 4 (four) hours as needed for pain (severe post operative pain) for up to 7 days. Max Daily Amount: 30 mg 42 tablet 0 pantoprazole 40 MG tablet Commonly known as: PROTONIX Take 1 tablet (40 mg total) by mouth daily for 30 days. 30 tablet 0 traMADoL 50 mg tablet Commonly known as: Ultram Take 1 tablet (50 mg total) by mouth every 8 (eight) hours as needed for pain (for mild to moderatepost operative pain) for up to 7 days. Max Daily Amount: 150 mg 21 tablet 0 CONTINUE taking these medications Instructions Comments Quantity Refills busPIRone 10 MG tablet Commonly known as: BUSPAR Take 1 tablet (10 mg total) by mouth 3 (three) times daily. 0 cholecalciferol 125 mcg (5,000 unit) tablet Commonly known as: VITAMIN D3 Take 1 capsule by mouth daily. 0 escitalopram 20 MG tablet Commonly known as: LEXAPRO Take 1 tablet (20 mg total) by mouth daily. 0 estradioL 1 MG tablet Commonly known as: ESTRACE Take 1 tablet (1 mg total) by mouth daily. 0 fluticasone furoate-vilanteroL 200-25 mcg/dose Dsdv Commonly known as: BREO ELLIPTA Inhale by mouth via inhaler. 0 ipratropium 17 mcg/actuation inhaler Commonly known as: ATROVENT HFA Inhale 2 puffs by mouth as needed for wheezing. 0 multivitamin per tablet Take 1 tablet by mouth daily ( Stress formula ). 0 traZODone 100 MG tablet Commonly known as: DESYREL Take 2 tablets (200 mg total) by mouth every night as needed. 0 Ventolin HFA 90 mcg/actuation inhaler Generic drug: albuterol Inhale 2 puffs by mouth every 4 (four) hours as needed for shortness of breath or wheezing. 0 STOP taking these medications multivitamin, stress formula Tab Where to Get Your Medications These medications were sent to [id number] - [place] [address], [facility] [address] acetaminophen 500 MG tablet aspirin 81 MG EC tablet docusate sodium 100 MG capsule ferrous sulfate 325 (65 FE) MG EC tablet meloxicam 15 MG tablet oxyCODONE 5 MG immediate release tablet pantoprazole 40 MG tablet traMADoL 50 mg tablet Physical Exam Vitals and nursing note reviewed. Constitutional: Appearance: Normal appearance. HENT: Head: Normocephalic and atraumatic. Right Ear: External ear normal. Left Ear: External ear normal. Nose: Nose normal. Mouth/Throat: Mouth: Mucous membranes are moist. Cardiovascular: Rate and Rhythm: Normal rate and regular rhythm. Heart sounds: Normal heart sounds. Pulmonary: Effort: Pulmonary effort is normal. Breath sounds: Normal breath sounds. Abdominal: General: Bowel sounds are normal. Palpations: Abdomen is soft. Tenderness: There is no abdominal tenderness. There is no guarding. Musculoskeletal: Cervical back: Normal range of motion. Right lower leg: No edema. Skin: General: Skin is warm and dry. Capillary Refill: Capillary refill takes less than 2 seconds. Comments: Left knee with intact dressing. Moving toes with sensation intact Neurological: General: No focal deficit present. Mental Status: She is alert and oriented to person, place, and time. Mental status is at baseline. Psychiatric: Mood and Affect: Mood normal. Behavior: Behavior normal. Thought Content: Thought content normal. Judgment: Judgment normal. Discharge Instructions Discharge Diet:home diet Discharge Activity:per surgeon instructions Discharge Follow UP: Contact information for follow-up [facility] [address] [place] [address] Next Steps: Go to Instructions: Walker provided by [facility] ([phone]). If you have any questions or concerns regarding your WALKER, please call them at [phone]. [facility] Outpatient Physical Therapy ([facility] Location) [facility] Outpatient Physical Therapy ([facility]) [address] [place] [address] Next Steps: Go to Instructions: Outpatient physical therapy provided by [facility] Outpatient Physical Therapy ([facility]) [phone]. APPOINTMENT: Sunday, June 23, 2024 at 8:45 am. If you have any questions or concerns, please call them at [phone]. Gurjit Mena MD Specialty: Family Medicine Relationship: PCP - [facility] [place] [address] [place] [address] Next Steps: Follow up in 1 week(s) Primary care provider (PCP) Next Steps: Follow up Time Spent: 30 minutes spent on creating safe d/c plan with coordination with orthopedic surgeon, discussion with pt and family at bedside on constipation prevention, signs of infection to report andneed for medication safety in home, answering questions and documentation. Electronically signed by Fany Jiang NP, 06/22/24, 8:55 AM EDT documented in this encounter Discharge Instructions * Attachments The following attachments cannot be sent through Care Everywhere. * Fall Prevention in Hospitals Adult ([place]gr[place]) * Total Knee Replacement Care After Mlsu-nq-Nhcy ([place]gr[place]) * Infection Prevention in the Home ([place]gr[place]) * Pain Medicine Instructions Owjx-ct-Cuix ([place]grin) documented in this encounter Medications at Time of Discharge aspirin 81 MG EC tablet Take 1 tablet (81 mg total) by mouth 2 (two) times daily. 60 tablet 06/22/2024 busPIRone (BUSPAR) 10 MG tablet Take 1 [...] Amount: 150 mg 21 tablet 06/22/2024 5 documented as of this encounter Progress Notes * Patti Flores, OTR - 06/22/2024 10:08 AM EDT Images from the original note were not included. Inpatient Occupational Therapy Treatment Note Patient Name: Ran Kamara Date of : 1975 Date of Treatment: 06/22/24 Start Time: 931 Stop Time: 100 Session Duration: 34 minutes This patient is a 48 y.o. female admitted on 06/21/2024 with Traumatic arthritis of left knee [M12.562]. Past Medical History: Diagnosis Date Anxiety Bradycardia Migraine FARHEEN on CPAP Past Surgical History: Procedure Laterality Date BREAST SURGERY duct removal CARDIAC SURGERY loop recorder CARPAL TUNNEL RELEASE Left SECTION x3 HYSTERECTOMY KNEE OPEN LATERAL RELEASE Bilateral multiple MAKOPLASTY,KNEE Left 06/21/2024 Procedure: ARTHROPLASTY, KNEE, ROBOT-ASSISTED; Surgeon: Fausto Jacobo MD; Location: [facility]; Service: Orthopedic Surgery; Laterality: Left; General Visit type: Treatment Approved by: Nursing Patient disposition upon entry: Patient verified by name, Patient verified by date of , Supinein bed, All needs met and within reach, Call light/pull cord in reach, Head of bed >30 degrees, Nursing aware/notified Co-treated by: PT Assisted by: support technician Precautions Weightbearing status: Weight bearing as tolerated (WBAT), Left lower extremity Precautions: Fall risk Isolation precautions: Standard LDA/Brace/Protective equipment: Lines, drains, and airways: peripheral IV Brace/protective equipment: Knee immobilizer Subjective Subjective: Pt agreeable Daughter sleeping on couch during session Pain Patient reports pain in L knee while ambulating; did not rate on pain scale. RN notified and aware. Cognition Cognition: Overall cognitive status: Patient is awake and alert, attending to directions appropriately, demonstrating good problem solving skills, and aware of any deficits or impairments, if present. Objective Vitals Systolic BP pre activity in the 120's; systolic BP post activity in the 130's; both BP readings taken in standing . RN notified Bed Mobility Supine to sit: Standby assist, 1 person assist Sit to supine: Minimal assistance, 1 person assist, Comment: with LLE Transfers Sit to stand:Contact guard, 1 person assist, Gait belt used, Rolling walker used Stand to sit:Contact guard, 1 person assist, Gait belt used, Rolling walker used Functional mobility:Contact guard, 1 person assist, Gait belt used, Rolling walker used, to ambulate 150 feet in the hallway Refer to PT note for more information on stair training. ADLs Patient declined upper and lower body dressing during this session. Patient performed sponge bath prior to therapy arrival. Balance Static sitting balance:Normal: Patient able to maintain steady balance without handheld support Dynamic sitting balance:Good: Patient accepts moderate challenge; able to maintain balance while picking object off the floor Static standing balance:Good: Patient able to maintain balance without handheld support; limited postural sway Dynamic standing balance:Fair: Patient accepts minimal challenge; able to maintain balance while turning head/trunk Activity Tolerance Patient limited with activity/intervention due to pain and weakness Treatment Patient educated on ADLs, LB dressing tech, functional transfers and mobility, car transfers, EC/WS, DME/AE recommendations, WBAT, compression stockings, knee immobilizer, polar care, IADLs, home program and safety. Patient with verbal understanding and demonstration. Educational handout provided to patient. Assessment Assessment Patient tolerated session well and demonstrated improved performance during this treatment session.Patient expressed increased pain in L knee while ambulating 150 feet in the hallway and required multiple standing/sitting rest breaks. Patient declined ADLs this date as patient performed sponge bath with nursing staff prior to therapy arrival. Patient continues to present with decreased strength,decreased endurance, decreased balance. These deficits currently impact the patient's ability to perform ADLs and functional mobility, putting them at an increased risk for increased falls, further functional decline, further decreased strength. Patient will benefit from continued OT services to address the aforementioned functional deficits. Plan Recommendations Discharge recommendations: Discharge home/prior living situation. Patient would benefit from continued therapy services. DME recommendations: RW, TTPeter Treatment Plan: ADL training, DME recommendations , Functional mobility/transfer training, Patient/family/caregiver education OT Frequency/Duration: Daily x 5 days Goals Upper body dressing: donning and doffing upper body dressing clothing with setup. Lower body dressing: donning and doffing lower body clothing with minimal assistance. Toileting: toileting with contact guard assist. Progressing - Bed mobility: sit to supine, supine to sit with standby assist. Met - Functional transfers: ambulatory transfer with contact guard assist and RW . Met - Other goal 1: Pt will be ed on and verbalize understanding of energy conservation/work simplification techniques, home safety, car transfers, adaptive equipment, and lower body dressing techniques to increase independence with ADLs at home Target Date: 06/25/2024 Goals were discussed with patient Progress towards goals: progressing Education Patient educated on safety, use of call light, ADLs, functional mobility, adaptive equipment, energy conservation strategies, educational materials provided , WBAT, knee immobilizer, polar care and following, they were able to verbalize understanding. Interdisciplinary Communication Following treatment, therapist communicated with nursing regarding patient's performance during therapy session. Patient reported feeling unsafe to discharge home due to limited family support at home, RN notified and aware. Patient Disposition Upon Leaving Patient Disposition: Supine in bed, Visitor/family present, All needs met and within reach, Call light/pull cord in reach, Bed alarm applied, Head of bed >30 degrees, Nursing aware/notified If this patient discharges prior to next therapy session, this note serves as the patient's discharge summary. Electronically signed by KRYSTAL Noyola - 06/22/2024 - 10:08 AM EDT * Colette Avendnao PT - 06/22/2024 10:07 AM EDT Images from the original note were not included. Inpatient Physical Therapy Treatment Patient Name: Ran Kamara Date of : 1975 Date of Treatment: 06/22/24 Start Time 0933 Stop Time 1003 Session Duration 30 minutes Additional zero charge placed for time collaborating with RN beginning and end of session General Visit Type: Treatment Approved By: Nurse Antunez Patient Disposition Upon Entry: Supine in bed, Call Light/Pull Cord in reach, All needs met and within reach, Nursing aware/notified, HOB >30 degrees, [place] hose on, Family in room, SCDs on Patient Verified By: Name and Date of Co-treated by: OT Assisted by: support technician Precautions Weight-Bearing Status: Weight Bearing As Tolerated (WBAT), L LE Precautions: Fall risk Isolation Precautions: Standard Lines, tubes, drains, airway: peripheral IV Bracing: knee immobilizer Subjective Subjective: Patient agreeable to physical therapy treatment. Pain Pt reported pain in her L knee with ambulation and going up/down stairs. No numerical pain rating provided. Cognition WFL Objective Vitals SpO2 94% on RA end of ambulation Standing pre-ambulation: BP 128/75, HR 70 Standing post-ambulation: BP 136/79, HR 76 Functional Mobility Bed Mobility Supine to Sit: standby assist, 1-person assist, HOB elevated Sit to Supine: minimal assist, 1-person assist, HOB elevated Transfers Sit to Stand: contact guard assist, 1-person assist, gait belt used, rolling walker, knee immobilizer Stand to Sit: contact guard assist, 1-person assist, gait belt used, rolling walker, knee immobilizer Gait Pt ambulated a total of 150' using RW with CGA for safety. Intermittent standing and seated rest breaks taken due to pain and fatigue. Knee immobilizer on throughout. Stair Management Pt negotiated up/down 4 stairs using B rails as at DC location, requiring CGA for safety. Knee immobilizer on throughout. Wheelchair Mobility Not assessed, patient ambulatory. AM-PAC Basic Mobility Inpatient Short Form How much difficulty does the patient currently have: Turning over in bed (including adjusting bedclothes, sheets, and blankets)? (3) A little (can do the activity without assistive devices or help from another person, but requires A LITTLE more time and effort) Sitting down on and standing up from a chair with arms (e.g., wheelchair, bedside commode, etc.)? (1) Total/Unable Moving from lying on back to sitting on side of bed? (3) A little (can do the activity without assistive devices or help from another person, but requires A LITTLE more time and effort) How much help from another person does the patient currently need: Moving to and from a bed to a chair (including a wheelchair)? (3) A little Need to walk in hospital room? (3) A little Climbing 3-5 steps with a railing? (3) A little Score Raw score=16 MDC=4.72 A raw score of >= 16 is significantly associated with increased odds of discharge to home in addition to consideration made for the patient's cognition and social determinants of health. Balance Sitting balance SBA, Standing balance CGA RW Activity Tolerance Patient limited with activity/intervention due to weakness, pain Treatment 1 set x 5-10 repetitions L LE ankle pumps, quad sets, short arc quads (AAROM), long arc quads (AAROM), heel slides, straight leg raises (AAROM) - AAROM for several exercises due to decreased quad strength Pt educated on zero knee foam, verbalizing and demonstrating understanding Assessment The patient was able to stand, ambulate a total of 150 feet using the walker, and go up/down 4 stairs with contact guard assistance. She was unable to complete a straight leg raise and reports lingering numbness/tingling; therefore, knee immobilizer on throughout the session. Patient educated on uti lization of knee immobilizer with patient verbalizing understanding. Exercises reviewed with the patient verbalizing and demonstrating understanding. She will continue to benefit from skilled PT to improve her strength and independence with functional mobility. Problems: Decreased functional mobility, Decreased gait tolerance, Decreased strength, Decreased activity tolerance, Impaired standing balance, Impaired dynamic balance, Gait impairment, Restricted ROM, Pain , Sensory deficits Rehab potential: Good for stated goals Plan Treatment Plan: Therapeutic Exercise, Therapeutic Activity, Gait Training, Neuromuscular Re-education, Transfer Training, Balance Training, Stair Training, Strengthening, Home Exercise Program, ROM, Wheelchair Management/Mobility Training, Pain Management, Patient/Family/Caregiver Education, DME Rec ommendations, Co-Treat with OT PT Frequency/Duration: 1-2x/day for 2 weeks Recommendations Discharge recommendations: Discharge home/prior living situation. Patient would benefit from continued therapy services. (During PT session, patient requested to stay another night in the hospital due to limited support at home, RN notified and aware and reports she will contact the provider) DME recommendations: Patient has no DME/adaptive equipment discharge needs at this time. Goals Supine to/from sit: Pt will complete supine<>sit Juliette Sit to/from stand: Pt will complete sit<>stand using RW SBA Gait: Pt will ambulate 150' using RW SBA Other Goal #1: Pt will be independent with HEP Target Date: 07/05/2024 Goals were discussed with patient and family Education Patient/Visitors educated on safety, use of call button, role of physical therapy, plan of care, therapeutic exercise, HEP packet, ambulation, transfers, bed mobility, ROM/positioning, stair negotiation, home safety, need for assistance and risk for falls and following, they were able to verbalize u nderstanding. No further questions or concerns stated. Patient Disposition Upon Leaving Supine with HOB >30 and bed alarm on (declined sitting in chair), Call Light/Pull Cord in reach,All needs met and within reach, Nursing aware/notified, HOB >30 degrees, SCDs on, [place] hose on, SpO2 94% on RA If this patient discharges prior to next therapy session, this note serves as the patient's discharge summary. Electronically signed by Colette Avendano, PT - 06/22/24 - 10:07 AM EDT * Ermias Obando PA-C - 06/22/2024 7:37 AM EDTSummary: POD#1 Date of Service: 06/22/2024 Name: Ran Kamara : 1975 Age: 48 y.o. Assessment/Plan: Status Post left Total Knee Arthroplasty. Post-Operative Day: 1 Discharge Planning home today pending medical clearance PT/OT to ambulate twice prior to discharge Patient will be weight bearing as tolerated: LLE Patient will be discharged to Home with Home Health to include PT/OT Home Health/Outpatient PT to: Evaluate and Treat, Follow TKA protocol to include gait training, increase motion, decrease pain and swelling. Pain medication sent to patient's preferred pharmacy: Oxycodone 5mg 1 po q6 hours #28 DVT Prophylaxis: ASA EC 81mg 1 po BID x 30 days Patient will follow up in office in 10-14 days with xrays Post Op Care Leave dressing intact until post operative follow up in office. May shower on post op day 2, no soaking, no scrubbing of incision/dressing. Wear [place] Hose until post-op visit, may remove to shower Use walker until safely able to walk with cane as directed by PT. CPM machine: start 0-60 degrees twice a day 2 hours each, advance 5 degrees daily Zero knee three times daily for 30 minutes each Subjective: Post-Operative Day: 1 s/p left Total Knee Arthroplasty Patient rates their pain a 5 out of 10 Systemic or Specific Complaints:No Complaints Patient reports working with PT yesterday and ambulated 2 feet with PT using a walker for assistance. Objective: Vital signs in last 24 hours: Temp: [96.3 ??F (35.7 ??C)-98.1 ??F (36.7 ??C)] 97.9 ??F (36.6 ??C) Pulse: [50-75] 56 Resp: [12-20] 18 BP: (90-117)/(48-76) 115/76 FiO2 (%): [21 %-100 %] 21 % General: Alert and Oriented x 3, NAD Appearance Swelling present WNL post operatively Wound: Dressing intact no obvious evidence of erythema, no blistering present Motion: ROM of knee intact, decreased, with discomfort, able to dorsiflex and plantarflex foot NV Intact DVT Exam: -Homans with soft non tender calf Data Review CBC: Lab Results Component Value Date WBC 7.2 06/08/2024 RBC 4.59 06/08/2024 HGB 11.6 (L) 06/22/2024 HCT 34.7 (L) 06/22/2024 PLT 297 06/08/2024 XR knee 1 or 2 views left Narrative: LEFT KNEE SERIES HISTORY: Joint pain. Recent surgery . COMPARISON: June 04, 2024. FINDINGS: A two view exam demonstrates surgical changes of total knee arthroplasty. The hardware has a normal appearance. No fracture is identified. Impression: Surgical changes of arthroplasty without hardware complication. Images reviewed, interpreted, and dictated by Dr. Talon Ruiz. Transcribed by Lacie Edwards PA-C. Electronically Signed, Ermias Obando PA-C 06/22/24 7:38 AM EDT Cosigned by Fausto Jacobo MD at 06/22/2024 8:21 AM EDT * Colette Avendano PT - 06/21/2024 1:23 PM EDT Images from the original note were not included. Inpatient Physical Therapy Initial Evaluation Patient Name: Ran Kamara Date of : 1975 Date of Evaluation: 06/21/24 In Time 1250 Out Time 1316 Session Duration 26 minutes Time spent for nursing collaboration, chart and systems review, and clinical reasoning. 10 minutes Total Time 36 minutes Pt is a 48 y.o. female admitted on 06/21/2024 with Traumatic arthritis of left knee [M12.562]. Past Medical History: Diagnosis Date Anxiety Bradycardia Migraine FARHEEN on CPAP Past Surgical History: Procedure Laterality Date BREAST SURGERY duct removal CARDIAC SURGERY loop recorder CARPAL TUNNEL RELEASE Left SECTION x3 HYSTERECTOMY KNEE OPEN LATERAL RELEASE Bilateral multiple MAKOPLASTY,KNEE Left 06/21/2024 Procedure: ARTHROPLASTY, KNEE, ROBOT-ASSISTED; Surgeon: Fausto Jacobo MD; Location: [facility]; Service: Orthopedic Surgery; Laterality: Left; General Visit Type: Initial Evaluation Approved By: Nurse Bearden Patient Disposition Upon Entry: Supine in bed, Call Light/Pull Cord in reach, All needs met and within reach, Nursing aware/notified, HOB >30 degrees, [place] hose on Patient Verified By: Name and Date of Co-treated by: OT Assisted by: support technician Precautions Weight-Bearing Status: Weight Bearing As Tolerated (WBAT), L LE Precautions: Fall risk Isolation Precautions: Standard Lines, tubes, drains, airway: peripheral IV, nasal cannula Bracing: knee immobilizer Subjective Subjective: Patient agreeable to physical therapy evaluation and treatment. Pain Pt reported no pain. RN notified. Cognition WFL, lethargic Home Living Pt reports at baseline, she is independent with mobility and ADL's using no device. She has no DME at home. RW delivered by session start. She lives alone but will be staying at her parent's home which is a mobile home with no CATHIE. No hx of falls. She is not on home O2. Objective Vitals SpO2 97% on 4L on arrival, RN cleared pt to trial mobility on RA with SpO2 91% and above. RN requested for patient to be on 2L end of session with SPO2 93% and above On pulse oximeter, HR reading 55 beginning of session, 84 end of session BP 113/76 beginning of session, 90/48 end of session with RN notified - pt reported feeling asymptomatic Basic Strength Assessment L LE weakness postop, 2/5 quad, hamstring strength, 3+/5 DF and PF strength; R LE strength WNL Range of Motion Assessment Decreased L knee ROM postop Sensation Pt reports numb sensation to L LE postop. No chronic N/T. Coordination Coordination is intact and within normal limits. Functional Mobility Bed Mobility Supine to Sit: standby assist, 1-person assist, HOB elevated Sit to Supine: standby assist, 1-person assist, HOB elevated Transfers Sit to Stand: minimal assist, 1-person assist, gait belt used, rolling walker, knee immobilizer Stand to Sit: minimal assist, 1-person assist, gait belt used, rolling walker, knee immobilizer Gait Pt ambulated 2' bed>BSC + 2' BSC>bed using RW with Truong x 2 for steadying. Knee immobilizer on throughout. Stair Management Pt unable due to poor motor control in left leg, numbness/tingling Wheelchair Mobility Not assessed, patient ambulatory. AM-PAC Basic Mobility Inpatient Short Form How much difficulty does the patient currently have: Turning over in bed (including adjusting bedclothes, sheets, and blankets)? (3) A little (can do the activity without assistive devices or help from another person, but requires A LITTLE more time and effort) Sitting down on and standing up from a chair with arms (e.g., wheelchair, bedside commode, etc.)? (1) Total/Unable Moving from lying on back to sitting on side of bed? (3) A little (can do the activity without assistive devices or help from another person, but requires A LITTLE more time and effort) How much help from another person does the patient currently need: Moving to and from a bed to a chair (including a wheelchair)? (3) A little Need to walk in hospital room? (1) Total/Unable Climbing 3-5 steps with a railing? (1) Total/Unable Score Raw score=12 MDC=4.72 A raw score of >= 16 is significantly associated with increased odds of discharge to home in addition to consideration made for the patient's cognition and social determinants of health. Balance Sitting balance SBA, Standing balance Truong RW Activity Tolerance Patient limited with activity/intervention due to weakness, decreased motor control, impaired standing balance, numbness/tingling Treatment Therapeutic activity for transfers Assessment Pt seen today for a mobility evaluation s/p L TKA on 06/21/24. Pt able to stand and ambulate a total of 4' using the walker with minimal assistance. Ambulation distance limited by poor motor control and knee buckling. Knee immobilizer on throughout. Pt will benefit from skilled PT to improve her strength and independence with functional mobility. Problems: Decreased functional mobility, Decreased gait tolerance, Decreased strength, Decreased activity tolerance, Impaired standing balance, Impaired dynamic balance, Gait impairment, Restricted ROM, Pain , Sensory deficits Rehab potential: Good for stated goals Plan Treatment Plan: Therapeutic Exercise, Therapeutic Activity, Gait Training, Neuromuscular Re-education, Transfer Training, Balance Training, Stair Training, Strengthening, Home Exercise Program, ROM, Wheelchair Management/Mobility Training, Pain Management, Patient/Family/Caregiver Education, DME Rec ommendations, Co-Treat with OT PT Frequency/Duration: 1-2x/day for 2 weeks Recommendations Discharge recommendations: Discharge home/prior living situation. Patient would benefit from continued therapy services. (Anticipate) DME recommendations: Patient has no DME/adaptive equipment discharge needs at this time. Goals Supine to/from sit: Pt will complete supine<>sit Juliette Sit to/from stand: Pt will complete sit<>stand using RW SBA Gait: Pt will ambulate 150' using RW SBA Other Goal #1: Pt will be independent with HEP Target Date: 07/05/2024 Goals were discussed with patient and family Education Patient/Visitors educated on safety, use of call button, role of physical therapy, plan of care, therapeutic exercise, HEP packet, ambulation, transfers, bed mobility, ROM/positioning, stair negotiation, home safety, need for assistance and risk for falls and following, they were able to verbalize u nderstanding. No further questions or concerns stated. Patient Disposition Upon Leaving Supine with HOB >30 and bed alarm on, Call Light/Pull Cord in reach, All needs met and within reach, Nursing aware/notified, HOB >30 degrees, SCDs on, [place] hose on, SpO2 94% on 2L If this patient discharges prior to next therapy session, this note serves as the patient's discharge summary. * Anastacia Shen OTR/Evelyn - 06/21/2024 1:16 PM EDT Inpatient Occupational Therapy Initial Evaluation Patient Name: Ran Kamara Date of : 1975 Date of Evaluation: 06/21/24 Start Time: 1252 Stop Time: 1313 Session Duration: 21 minutes Total time: 31 minutes spent, including 10 minutes for nursing collaboration, thorough chart and systems review, and clinical reasoning. This patient is a 48 y.o. female admitted on 06/21/2024 with Traumatic arthritis of left knee [M12.562]. Patient had Left TKA on 06/21/2024 Past Medical History: Diagnosis Date Anxiety Bradycardia Migraine FARHEEN on CPAP Past Surgical History: Procedure Laterality Date BREAST SURGERY duct removal CARDIAC SURGERY loop recorder CARPAL TUNNEL RELEASE Left SECTION x3 HYSTERECTOMY KNEE OPEN LATERAL RELEASE Bilateral multiple MAKOPLASTY,KNEE Left 06/21/2024 Procedure: ARTHROPLASTY, KNEE, ROBOT-ASSISTED; Surgeon: Fausto Jacobo MD; Location: [facility]; Service: Orthopedic Surgery; Laterality: Left; General Visit type: Initial Evaluation Approved by: Nursing Patient disposition upon entry: Patient verified by name, Patient verified by date of , Supinein bed, All needs met and within reach, Call light/pull cord in reach, Head of bed >30 degrees, Nursing aware/notified Co-treated by: PT Assisted by: support technician Precautions Weightbearing status: Weight bearing as tolerated (WBAT), Left lower extremity Precautions: Fall risk Isolation precautions: Standard LDA/Brace/Protective equipment: Lines, drains, and airways: blood pressure cuff, nasal cannula, peripheral IV, pulse oximeter Brace/protective equipment: Knee immobilizer Subjective Subjective: Pt agreeable Pain No-patient reports 0/10 pain Cognition Cognition: Overall cognitive status: Patient is awake and alert, attending to directions appropriately, demonstrating good problem solving skills, and aware of any deficits or impairments, if present. Orientation level: Oriented x4 Following commands: Follows all commands and directions without difficulty Vision/Hearing History Visual/Hearing History: glasses Home Living Lives with: Alone Receives help from: Does not receive help at baseline, but has help available at home if needed Type of home: Mobile home Home layout: One level, No stairs to enter Bathroom layout: Tub/shower unit Home equipment available: none Functional Mobility PLOF: Patient reports being complete independent with all functional mobility prior to onset. Activities of Daily Living PLOF: Patient reports being complete independent with all ADL's prior toonset. Falls:0 Objective Vitals BP readings Initial 113/76 Post treatment 90/48 nurse notified Okay to try therapy without O2 on; SpO2 92-03%; per nurse re apply O2 NC at end of session; SpO2 93% at end of session Range of Motion Assessment Normal: Patient is able to use bilateral upper extremities for reaching/grasping/holding objects inall planes, including above shoulder level Strength Assessment Good: Patient is able to use arms to pull, push, and hold moderate to maximal resistance at shoulder, elbow, and wrist. Coordination/Sensation Coordination: WFL Sensation: Light touch: Left LE decreased secondary to anesthesia; no N/T at baseline Bed Mobility Supine to sit: Standby assist, Head of bed elevated Sit to supine: Standby assist Transfers Sit to stand:Minimal assistance, Gait belt used, Rolling walker used Stand to sit:Minimal assistance, Gait belt used, Rolling walker used Functional mobility:Minimal assistance, 2 person assist, Gait belt used, Rolling walker used, standpivot to BSC only secondary to left LE buckling even with knee immobilizer on ADLs Feeding:Independent, Setup Patient is a feeder: No Grooming:Setup Bathing:AZEB-Unable to assess Upper body dressing:Setup Lower body dressing:Moderate Assistance Toileting:Standby Assist, Contact guard assist Outcome Measures [facility] Daily Living Functional Assessment How much help from another person does the patient currently need: Putting on and taking off regular lower body clothing? 2 Bathing, including washing, rinsing, and drying? 3 Toileting, including using toilet, bedpan or urinal? 3 Putting on and taking off regular upper body clothing? 3 Taking care of personal grooming such as brushing teeth? 3 Eating meals? 4 Raw Score 18/24 Total Score 46.65% impaired 1=Total/Unable (Total assist/Dependent) 2=A lot (Maximal/Moderate assist) 3=A little (Minimal/Contact guard/Supervision/Setup) 4=None (Modified independent/Independent) Raw Score Approximate Degree of Functional Impairment 6 100% 7 92.44% 8 85.69% 9 79.59% 10 74.70% 11 70.42% 12 66.57% 13 63.03% 14 59.67% 15 56.46% 16 53.32% 17 50.11% 18 46.65% 19 42.80% 20 38.32% 21 32.79% 22 25.80% 23 15.86% 24 0% A raw score of >= 19 is significantly associated with increased odds of discharge to home in addition to consideration made for the patient's cognition and social determinants of health. Balance Static sitting balance:Normal: Patient able to maintain steady balance without handheld support Dynamic sitting balance:Normal: Patient accepts maximal challenge and shift weight easily within full range in all directions Static standing balance:Good: Patient able to maintain balance without handheld support; limited postural sway Dynamic standing balance:Fair: Patient accepts minimal challenge; able to maintain balance while turning head/trunk Activity Tolerance Patient tolerated activity/intervention well with no complaints or adverse events. Patient limited with activity/intervention due to left knee buckling with immobilizer on Treatment Bed mobility, ADL transfers, toileting Assessment Assessment Pt participated in OT eval and treat s/p Left TKA demonstrating decreased Ind with ADLs and functional mobility. Patient will benefit from skilled OT services to increase overall strength, balance, safety awareness, endurance, and activity tolerance required for increased ind with ADLs and ADL transfers. Problems: difficulty with ADLs, fall risk, impaired functional mobility, impaired strength Rehab potential: Good for stated goals Plan Recommendations Discharge recommendations: Discharge home/prior living situation. Patient would benefit from continued therapy services. DME recommendations: RW, TTB Treatment Plan: ADL training, DME recommendations , Functional mobility/transfer training, Patient/family/caregiver education OT Frequency/Duration: Daily x 5 days Goals Upper body dressing: donning and doffing upper body dressing clothing with setup. Lower body dressing: donning and doffing lower body clothing with minimal assistance. Toileting: toileting with contact guard assist. Bed mobility: sit to supine, supine to sit with standby assist. Functional transfers: ambulatory transfer with contact guard assist and RW . Other goal 1: Pt will be ed on and verbalize understanding of energy conservation/work simplification techniques, home safety, car transfers, adaptive equipment, and lower body dressing techniques toincrease independence with ADLs at home Target Date: 06/25/2024 Goals were discussed with patient Education Patient educated on safety, use of call light, role of occupational therapy, patient's plan of care, ADLs, functional mobility, they were able to verbalize understanding, return demonstration. Patient Disposition Upon Leaving Patient disposition upon leaving: Supine in bed, All needs met and within reach, Call light/pull cord in reach, Head of bed >30 degrees, Nursing aware/notified If this patient discharges prior to next therapy session, this note serves as the patient's discharge summary. Electronically signed by KRYSTAL Delgadillo/Evelyn - 06/21/2024 - 1:17 PM EDT * Katarina Gallardo RN - 06/21/2024 10:54 AM EDT DME: no preference Therapy: Oupatient therapy ( [facility] outpatient [place]) Per patient family/friends will be at home with her to help her recover. Patient/family provided with [facility] approved choice list and Patient choice letter along with Quality data link to access Medicare.gov Care Compare website to review potential post-acute providers. Choice provided to patient/family, and patient preferences received and referral(s) submitted to requested providers. Referral(s) submitted to: DME: no preference, [facility], [facility] Outpatient Physical Therapy [place]. * Tiffanie Das RN - 06/21/2024 6:36 AM EDT Uses cpap at home documented in this encounter H&P Notes * Shobha Childs APRN - 06/21/2024 12:07 PM EDT Images from the original note were not included. History & Physical - Date of Service: 06/21/2024 Name: Ran Kamara Room: [facility] : 1975 Age: 48 y.o. @ATTENDING@ Gurjit Mena MD SUBJECTIVE: Chief Complaint / Reason for Visit:. Left knee osteoarthritis S/P LTKA today Source of History: Patient Case Discussed With: Dr. Jacobo, orthopedic surgery Medical Records Reviewed: PCP/cardiology surgical clearance and orthopedic surgery office notes HPI: Ran Kamara is a 48 y.o. female with PMH as noted below presents with severe left osteoarthritis poorly controlled with conservative outpatient treatment who underwent elective left knee arthroplasty today. Intraoperative course unremarkable. Denies past medical history of CAD, CVA/TIA. Remote history of seizure disorder which she has not had seizures in several years nor is she medicated.Has sleep apnea and uses CPAP nightly. Denies chest pain, shortness of breath, abdominal pain, N/V,fever/chills or focal weakness. Dr. Izaguirre has requested that hospitalist observe overnight for medical management of comorbidities. Review of Systems Constitutional: Negative. HENT: Negative for congestion, nosebleeds, rhinorrhea, sore throat and trouble swallowing. Respiratory: Negative for cough, shortness of breath and wheezing. Cardiovascular: Negative for chest pain, palpitations and leg swelling. Gastrointestinal: Negative for abdominal distention, abdominal pain, diarrhea, nausea and vomiting. Genitourinary: Negative for difficulty urinating, dysuria, flank pain, frequency and urgency. Musculoskeletal: Negative for myalgias, neck pain and neck stiffness. LLE numbness Skin: Negative for color change and rash. Neurological: Negative for dizziness, facial asymmetry, speech difficulty, weakness, light-headedness and headaches. Hematological: Does not bruise/bleed easily. Psychiatric/Behavioral: Negative for confusion and dysphoric mood. HISTORY: Patient Active Problem List Diagnosis Date Noted Mitral valve prolapse 06/21/2024 Chronic renal insufficiency 06/21/2024 Mild asthma 06/21/2024 Arthritis 06/21/2024 Status post left knee replacement with ANNA 06/21/2024 Anxiety Bradycardia Migraine FARHEEN on CPAP Past Surgical History: Procedure Laterality Date BREAST SURGERY duct removal CARDIAC SURGERY loop recorder CARPAL TUNNEL RELEASE Left SECTION x3 HYSTERECTOMY KNEE OPEN LATERAL RELEASE Bilateral multiple MAKOPLASTY,KNEE Left 06/21/2024 Procedure: ARTHROPLASTY, KNEE, ROBOT-ASSISTED; Surgeon: Fausto Jacobo MD; Location: [facility] OR; Service: Orthopedic Surgery; Laterality: Left; Adhesive Social History Tobacco Use Smoking status: Never Smokeless tobacco: Never Substance Use Topics Alcohol use: Not Currently Family History Problem Relation Name Age of Onset Atrial fibrillation Mother Heart attack Father Hypertension Father Diabetes Sister Earl Syndrome ([facility]NP[facility]) Brother Prior to Encounter Medication List (as reviewed in [employer]) Medications Ventolin HFA 90 mcg/actuation inhaler Si puffs. busPIRone (BUSPAR) 10 MG tablet Sig: Take 1 tablet (10 mg total) by mouth 3 (three) times daily. cholecalciferol (VITAMIN D3) 125 mcg (5,000 unit) tablet Sig: Take 1 capsule by mouth daily. escitalopram (LEXAPRO) 10 MG tablet Sig: Take 1 tablet (10 mg total) by mouth daily. estradioL (ESTRACE) 1 MG tablet Sig: Take 1 tablet (1 mg total) by mouth daily. fluticasone furoate-vilanteroL (BREO ELLIPTA) 200-25 mcg/dose dsdv Sig: Inhale by mouth via inhaler. ipratropium (ATROVENT HFA) 17 mcg/actuation inhaler Sig: Inhale 2 puffs by mouth. multivitamin, stress formula tab Sig: Take 1 tablet by mouth daily. traZODone (DESYREL) 100 MG tablet Sig: Take 2 tablets (200 mg total) by mouth every night as needed. Comments: None OBJECTIVE: Blood pressure 103/70, pulse 75, temperature 96.3 ??F (35.7 ??C), resp. rate 18, height 1.6 m (5' 3 ), weight 103 kg (227 lb), SpO2 92%. Physical Exam Vitals and nursing note reviewed. Constitutional: General: Not in acute distress. Laying in bed in room 240 comfortably. Appearance: Normal appearance. Not toxic-appearing. Obese middle-age female HENT: Head: Normocephalic and atraumatic. Comments: No facial asymmetry Mouth: Mucous membranes are moist. Pharynx: Oropharynx is clear. Eyes: Extraocular Movements: Extraocular movements intact. Conjunctiva/sclera: Conjunctivae normal. Cardiovascular: Rate and Rhythm: Normal rate and regular rhythm. Pulses: Normal pulses. Heart sounds: Normal heart sounds. Pulmonary: Effort: Pulmonary effort is normal. Breath sounds: Normal breath sounds. Abdominal: General: Bowel sounds are normal. There is no distension. Palpations: Abdomen is soft. Tenderness: There is no abdominal tenderness. There is no guarding. Musculoskeletal: General: No swelling. Cervical back: Normal range of motion and neck supple. Right lower leg: No edema. Left lower leg: No edema. Comments: Limited range of motion of left knee due to post-op TKA, left lower extremity with full length postop Solis wrap dressing and Polar Care, BLE compression stockings, BLE palpable pedal pulses,wiggles toes Skin: General: Skin is warm and dry. Neurological: General: No focal deficit present. Mental Status: Alert and oriented to person, place, and time. Mental status is at baseline. Psychiatric: Mood and Affect: Mood normal. No results for input(s): WBC , HGB , HCT , PLT in the last 168 hours. No results for input(s): NA , K , CL , CO2 , BUN , CREATININE , CALCIUM , ALBUMIN , PROT , BILITOT , ALKPHOS , ALT , AST , GLUCOSE in the last 168 hours. Invalid input(s): PHOSPHOROUS No results for input(s): INR , PTT in the last 72 hours. Radiology Results (last 3 days) Procedure Component Value Units Date/Time XR knee 1 or 2 views left [[id number]] Collected: 06/21/24 1048 Order Status: Completed Updated: 06/21/24 1053 Narrative: LEFT KNEE SERIES HISTORY: Joint pain. Recent surgery . COMPARISON: June 04, 2024. FINDINGS: A two view exam demonstrates surgical changes of total knee arthroplasty. The hardware has a normal appearance. No fracture is identified. Impression: Surgical changes of arthroplasty without hardware complication. Images reviewed, interpreted, and dictated by Dr. Talon Ruiz. Transcribed by Lacie Edwards PA-C. Echo Results (last 7 days) No results found for the last 168 hours. Microbiology Results (last 7 days) No results found for the last 168 hours. ASSESSMENT & PLAN: UpToDate Search Principal problem Severe left knee osteoarthritis 1. Severe left knee osteoarthritis: S/p elective LTKA. Postop orthopedic surgery orders noted. Paincontrol per orthopedic surgery. PT/OT. Monitor for postoperative urinary retention. Monitor H&Hon a.m. labs for acute blood loss. 2. Anxiety: BuSpar 10 mg 3 times daily and Lexapro 10 mg daily 3. Asthma: She was a previous smoker some may be more of a component of COPD. DuoNebs every 6 hoursas needed. 4. FARHEEN: Will continue CPAP nightly. She did not bring her own machine. 5. Super morbid obesity: BMI 40%. Complicates all aspects of her medical health care and rehab. The patient is mild risk and is being admitted to [facility] in a bed status. ELOS: Anticipate discharge tomorrow Electronically signed by: Shobha Childs APRN, 06/21/2024 at 12:07 PM Cosigned by Georgette Younger MD at 06/21/2024 12:23 PM EDT Associated attestation - Georgette Younger MD - 06/21/2024 11:23 AM CDT I have reviewed the documentation above including assessment and plans, as well as personally discussed the patient care plan with Shobha Childs APRN, and I agree. * Fausto Jacobo MD - 06/21/2024 6:34 AM EDT H&P reviewed. The patient was examined and there are no changes to the H&P. Source Note - Sho Rain PA-C - 06/17/2024 10:08 AM EDT NAME: Ran Kamara CSN: [id number] : 1975 PCP: Gurjit Mena MD REASON FOR VISIT No chief complaint on file. HPI Ran Kamara is a 48 y.o. female Patient presents [...] CURRENT MEDICATIONS Current Outpatient Medications Medication Instructions busPIRone (BUSPAR) 10 mg, 3 times daily cholecalciferol (VITAMIN D3) 125 mcg (5,000 unit) tablet 1 capsule, Daily escitalopram (LEXAPRO) 10 MG tablet 1 tablet, Daily estradioL (ESTRACE) 1 mg, Daily fluticasone furoate-vilanteroL (BREO ELLIPTA) 200-25 mcg/dose dsdv Inhale by mouth via inhaler. ipratropium (ATROVENT HFA) 17 mcg/actuation inhaler 2 puffs ipratropium (ATROVENT) 21 mcg (0.03 %) 0.03% nasal spray 2 sprays, 3 times daily multivitamin, stress formula tab 1 tablet, Daily traZODone (DESYREL) 200 mg, Every Night PRN Ventolin HFA 90 mcg/actuation inhaler 2 puffs ALLERGIES Allergies Allergen Reactions Adhesive Rash and Swelling PAST MEDICAL/SURGICAL HISTORY Past Medical History: Diagnosis Date Anxiety Bradycardia Migraine FARHEEN on CPAP Past Surgical History: Procedure Laterality Date BREAST SURGERY duct removal CARDIAC SURGERY loop recorder CARPAL TUNNEL RELEASE Left SECTION x3 HYSTERECTOMY KNEE OPEN LATERAL RELEASE Bilateral multiple SOCIAL HISTORY Social History Tobacco Use Smoking status: Never Smokeless tobacco: Never Substance Use Topics Alcohol use: Not Currently Drug use: Never FAMILY HISTORY Family History Problem Relation Name Age of Onset Atrial fibrillation Mother Heart attack Father Hypertension Father Diabetes Sister Earl Syndrome ([facility]) Brother REVIEW OF SYSTEMS General: No recent fever [...] or patient care. Electronically SignedSujatha CMA OBJECTIVE There were no vitals filed for this visit. Physical Exam Vitals reviewed. Constitutional: Appearance: Normal [...] Visit Musculoskeletal and Integument Traumatic arthritis of left knee - Primary I discussed with patient in depth the [...] to include arthroplasty of the knee. PLAN No follow-ups on file. Rest Ice Follow up after post-operatively/procedure, as [...] your prescription refills for excessive abuse or snf use. If necessary, you will be referred to shipyard painter apprentice. We will monitor your use of scheduled drugs through the KD program. In addition, we will follow the monitoring procedures required by the [facility]. The side effects of Schedule II [...] Factors Smoking: Patient is a current Non-smoker There is no height or weight on file to calculate BMI. Body Mass Index:Patient's current BMI >35 For [...] not Diabetic Scribe Attestation: Vanessa De La Rosa RTR acted as a scribe and transcribed components of the current encounter under the direction of the Attending Provider. I have not been involved in providing any clinical treatments or patient care. Electronically Signed, OSMANI Esteban PA-C scribing for Fausto Jacobo MD I, Anup S. Chattha, MD, have read and agree with the documentation that has been completed regarding this visit. By signing this record, I attest that the documentation was completed in my physical presence and is an accurate record of the encounter. Electronically Signed, Fausto Jacobo MD 06/17/2024 10:57 AM EDT Schuyler Stewart: Jean-Paul RANDOLPH / [...] the patient (and/or the patient's family member). Cosigned by Fausto Jacobo MD at 06/18/2024 4:10 PM EDT documented in this encounter Procedure Notes * Darline Almaguer RN - 06/09/2024 10:32 AM EDT Discussed health history and medications. Medication instructions and Pre- Surgical Instructions discussed with patient. All questions answered. Verified patient will have assistance day of surgery and when d/c'd home. Patient has number to call [facility] with questions. documented in this encounter OR Notes * Op Note - Fausto Jacobo MD - 06/21/2024 10:55 AM EDT DATE OF PROCEDURE: 06/21/2024 PREOPERATIVE DIAGNOSIS: Left knee advanced osteoarthritis. POSTOPERATIVE DIAGNOSIS: Left knee advanced osteoarthritis. PROCEDURES PERFORMED: Left total knee arthroplasty using Anna robotic assistance (Blendagram Triathlon system using cementless technology with cruciate retaining size 3 femur, size 3 tibia, 10 mm deep dish highly cross-linked X3 polyethylene insert and 29 mm asymmetric patella). ASSISTANTS: 1. Sho Rain PA-C. 2. Brit Jerez CFA. 3. Olena Pacheco LPN. ANESTHESIA: General with left adductor canal and genicular blocks. ESTIMATED BLOOD LOSS: Approximately 200 mL. COMPLICATIONS: None. DRAINS: None. CONDITION: Stable to recovery room. OPERATIVE INDICATIONS: Ran is a 48-year-old female, morbidly obese with a body mass index greater than 40, who had failed conservative treatment. She had progressive arthritis, refractory to pain. She had had multiple operations on her left knee including a meniscal root repair, but because of persistent extrusion and pain, it was recommended she undergo partial total knee arthroplasty. We examined her preoperatively and noted a flexion contracture with significant varus and given her size, did not feel like she was a candidate for partial knee replacement. Because she had failed conservative treatment, we recommended total knee replacement and the patient wished to proceed. Prior to surgery, risks, benefits, and alternatives were discussed with the patient and informed consent was obtained. DESCRIPTION OF PROCEDURE: I saw Ran in the preoperative holding area and marked her left knee. All questions were answered. She declined a spinal anesthetic and instead just had the adductor canal and genicular block administered. Once in the operating room, a general anesthetic was induced. She was given Decadron and preoperative tranexamic acid along with her antibiotics. Standard prep and drape was carried out to the left lower extremity. We paused for appropriate time-out. We exsanguinated the leg and elevated our tourniquet to 250 mmHg. Total tourniquet time was just over 45 minutes. I used a standard midline incision with a medial parapatellar arthrotomy. I everted the patella and hyperflexed the knee. There was extensive medial compartment disease, but early changes in the patellofemoral joint and some in the lateral plateau as well. I localized the Endobutton from her previous meniscal repair, and I was able to retrieve it without difficulty. We noted entry of the apparent nonabsorbable suture on the plateau and then to the root which may have contributed to some of the arthritis, although she had pretty extensive wear medially. I went ahead and attached trackers and checkpoints for the [employer] system and went through systematic registration until we had good correlation. Analysis revealed 7 degrees of chitimacha varus with 4 degrees of hyperextension. We were able to correct this without difficulty. After mapping the Anna system, we assessed the laxity and repositioned our components such that we had good balance throughout. Bone quality was expected to be good and was good throughout the surgery. I had removed both menisci along with the anterior cruciate ligament. We went ahead and made our standard tibial and femoral cuts using the [employer] robotic system in sequence. With trial components in place, we had a size 3 femur and a size 3 tibia. Alignment of the tibial base plate was confirmed with the Anna system. Coverage was excellent. We had planned for a 10 mm insert and this got us within 2 degrees of full extension. Collateral stability was great and balance seemed great. Kinematics showed good rollback and we were able to get just at about 130 degrees of flexion. The patella I cut freehand with the precision saw and this sized to a size 29. We now thoroughly washed and dried all the bony surfaces, and I impacted the patellar component at first followed by the tibial component, then the femoral component. We checked patellar tracking which was quite good using a 10 mm insert. The 10 mm insert also now gave me full extension and reduced the varus down to 5 degrees and gave me 133 degrees of flexion. With the final polyethylene in place, we released our tourniquet. We took our time with electrocautery, making sure we had very good hemostasis throughout. The patient received a second dose of IV TXA and I did use topical TXA as well as there was some generalized bone ooze. All the trackers and checkpoints were removed. After thorough wash of 3 L of Pulsavac lavage using a vancomycin solution, we applied a periarticular ropivacaine cocktail. After standard closure and dressings, the patient was transferred to the recovery room in stable condition. She tolerated the procedure well without any complications. /[id number] Fausto Jacobo MD ASC/AQ / ASC / AQS /[id number] documented in this encounter Miscellaneous Notes * Plan of Care - Harmony Higginbotham LPN - 06/22/2024 9:55 AM EDT Problem: Knowledge Deficit Goal: Patient/family/caregiver demonstrates understanding of disease process, treatment plan, medications, and discharge instructions Description: Complete learning assessment and assess knowledge base. Outcome: Progressing Problem: Potential for Falls Goal: Patient will remain free of falls Description: Assess and monitor vitals signs, neurological status including level of consciousness and orientation. Reassess fall risk per hospital policy.Ensure arm band on, uncluttered walking paths in room, adequate room lighting, call light and overbed table within reach, bed in low position, wheels locked, side rails up per policy, and non-skid footwear provided. Outcome: Progressing * Plan of Care - Jaimie Gallardo RN - 06/21/2024 9:54 PM EDT Problem: Knowledge Deficit Goal: Patient/family/caregiver demonstrates understanding of disease process, treatment plan, medications, and discharge instructions Description: Complete learning assessment and assess knowledge base. Outcome: Progressing Problem: Potential for Falls Goal: Patient will remain free of falls Description: Assess and monitor vitals signs, neurological status including level of consciousness and orientation. Reassess fall risk per hospital policy.Ensure arm band on, uncluttered walking paths in room, adequate room lighting, call light and overbed table within reach, bed in low position, wheels locked, side rails up per policy, and non-skid footwear provided. Outcome: Progressing documented in this encounter Plan of Treatment Upcoming Encounters Date Type Department Care Team (Late st Contact Info) Description 07/28/2024 10:15 AM EDT Treatment [facility] OP Physical Therapy [address] [place] [phone] Du You, DIGITAL ANALYST 07/30/2024 10:15 AM EDT Treatment [facility] OP Physical Therapy [address] [place] [phone] Du You, DIGITAL ANALYST 09/07/2024 10:00 AM EDT Office Visit [facility] - [address] [phone] Fausto Jacobo MD [address] [place] [id number] Scheduled Referrals Name Type Priority Associated Diagnoses Orde r Schedule AMB REFERRAL TO PHYSICAL THERAPY EVALUATE, TREAT AND PLAN OF CARE Outpatient Referral Routine Status post left knee replacement with ANNA Expected: 06/21/2024, Expires: 06/21/2025 documented as of this encounter Procedures Procedure Name Priority Date/Time Associated Diagnosis Comments HEMOGLOBIN AND HEMATOCRIT STAT 06/22/2024 3:45 AM EDT XR KNEE 1 OR 2 VIEWS LEFT STAT 06/21/2024 10:01 AM EDT NV ARTHRP KNE CONDYLE&PLATU MEDIAL&LAT COMPARTMENTS 06/21/2024 7:29 AM EDT Traumatic arthritis of left knee Case Notes 0630Adhesive allergy TISSUE EXAM [facility] AP Routine 06/21/2024 7:13 AM EDT Traumatic arthritis of left knee documented in this encounter Results * (ABNORMAL) Hemoglobin and Hematocrit (06/22/2024 3:45 AM EDT) Hemoglobin 11.6(L) 11.7 - 15.8 GM/DL 06/22/2024 4:09 AM EDT [facility] Hematocrit 34.7(L) 35.0 - 47.0 % 06/22/2024 4:09 AM EDT [facility] Blood Venipuncture / Unknown 06/22/2024 3:45 AM EDT 06/22/2024 3:57 AM EDT us Fausto S Lizbeth RIZVI LAB BLOOD ORDERABLES Final Res ult [facility] [address] [place] [address] * XR knee 1 or 2 views left (06/21/2024 10:01 AM EDT) Anatomical Region Laterality Modality Thigh, Knee, Leg X-Ray 06/21/2024 10:4 8 AM EDT Impressions 06/21/2024 10:51 AM EDT Surgical changes of arthroplasty without hardware complication. Images reviewed, interpreted, and dictated by Dr. Talon Ruiz. Transcribed by Lacie Edwards PA-C. Narrative 06/21/2024 10:51 AM EDT LEFT KNEE SERIES HISTORY: Joint pain. Recent surgery . COMPARISON: June 04, 2024. FINDINGS: A two view exam demonstrates surgical changes of total knee arthroplasty. The hardware has a normal appearance. No fracture is identified. Procedure Note Talon Ruiz MD - 06/21/2024 LEFT KNEE SERIES HISTORY: Joint pain. Recent surgery . COMPARISON: June 04, 2024. FINDINGS: A two view exam demonstrates surgical changes of total knee arthroplasty. The hardware has a normal appearance. No fracture is identified. IMPRESSION: Surgical changes of arthroplasty without hardware complication. Images reviewed, interpreted, and dictated by Dr. Talon Ruiz. Transcribed by Lacie Edwards PA-C. Fausto Denise Jacobo MD IMG DIAGNOSTIC IMAGING ORDERAB LES Final Result * Tissue Exam (06/21/2024 7:13 AM EDT) AP RESULT See Note: [facility] Comment: [facility] [address] [place] [address] or [phone] Noe Fuentes M.D., Steamtable Worker PATIENT NAME LABORATORY NO. [id number] RAN KAMARA. [id number] AGE SEX SSN CLIENT REF # [place] [id number] 1975 F [id number] [place] RE[facility] Emigdio ATTENDING Emigdio COPY TO. [address] [place] [address] DATE COLLECTED DATE RECEIVED DATE REPORTED 06/21/2024 06/21/2024 06/22/2024 DIAGNOSIS: A. BONE FRAGMENTS, GROSS ONLY, LEFT KNEE: GROSS DIAGNOSIS: Changes consistent with osteoarthritis B. HARDWARE, LEFT KNEE: GROSS DIAGNOSIS: Consistent with explanted hardware BG/sm CLINICAL HISTORY: Traumatic arthropathy, left knee SPECIMENS RECEIVED: A. BONE FRAGMENTS, GROSS ONLY, LEFT KNEE B. HARDWARE, LEFT KNEE Professional interpretation rendered by Paramjit Roldan M.D., F.C.A.P. at [facility], [address] [place] [address], [place] [address]. GROSS DESCRIPTION: A. Received in formalin labeled knee, left are multiple bone fragments, ranging from 1.8 cm to 7.0 cm in greatest dimension. The articular surfaces are snyder-white and smooth to granular with focal areas of eburnation present. The cut surfaces are snyder-yellow and grossly unremarkable with a cartilage thickness that ranges from less than 0.1 cm to 0.3 cm. The specimen is for gross examination only, and no tissue is submitted. B. Received in formalin labeled knee, left is a 1.3 x 0.4 x 0.2 cm silver, metallic plate that contains 4 circular holes, each measuring 0.2 cm in diameter. The specimen is for gross examination only, and no tissue is submitted. AKG REVIEWED, DIAGNOSED AND ELECTRONICALLY SIGNED BY: Paramjit Roldan M.D., [place] CPT CODES: [id number] Bone STRUCTURE OF LEFT KNEE REGION / Unknown 06/21/2024 7:13 AM EDT Biomedical device (physical object) STRUCTURE OF LEFT KNEE REGION / Unknown 06/21/2024 9:07 AM EDT Fausto Jacobo MD PATHOLOGY/CYTOLOGY ORDERABLES Final Result [facility] [address] [place] [address] documented in this encounter Visit Diagnoses Diagnosis Status post left knee replacement with ANNA- Primary Traumatic arthritis of left knee Status post left knee replacement with ANNA Traumatic arthritis of left knee Anxiety Anxiety state, unspecified Bradycardia Other specified cardiac dysrhythmias Migraine Migraine, unspecified, without mention of intractable migraine without mention of status migrainosus FARHEEN on CPAP Mitral valve prolapse Mitral valve disorders Chronic renal insufficiency Chronic kidney disease, unspecified Mild asthma Unspecified asthma Arthritis Unspecified arthropathy, site unspecified documented in this encounter Admitting Diagnoses Diagnosis Traumatic arthritis of left knee documented in this encounter Administered Medications Inactive Administered Medications - up to 3 most recent administrations Medication Order MAR Action Action Date Dose Rate Site acetaminophen (TYLENOL) tablet 1,000 mg 1,000 mg Once, oral, On Fri06/21/24 at 0700, For 1 dose, Give preprocedure, Pre-op Given 06/21/2024 6:57 AM EDT 1,000 mg albuterol 2.5 mg /3 mL (0.083 %) nebulizer solution 2.5 mg 2.5 mg Once as needed, nebulization, wheezing, Starting on Fri06/21/24 at 1003, For 1 dose, RESPIRATORY THERAPY TREATMENT , PACU, What is the respiratory therapy Modality? Small volume Nebulization Given 06/21/2024 10:07 AM EDT 2.5 mg aspirin EC tablet 81 mg 81 mg 2 times daily, oral, First dose on Fri06/22/24 at 0900, For 30 days, * DO NOT CRUSH THIS DOSAGE FORM * Given 06/22/2024 8:13 AM EDT 81 mg busPIRone (BUSPAR) tablet 10 mg 10 mg 3 times daily, oral, First dose on Fri06/21/24 at 1500 Given 06/22/2024 8:12 AM EDT 10 mg Given 06/21/2024 8:31 PM EDT 10 mg Given 06/21/2024 2:50 PM EDT 10 mg ceFAZolin in sterile water (ANCEF) 2 gram/20 mL syringe 2 g 2 g Every 8 hours interval, intravenous, Administer over 3 Minutes, First dose on Fri06/21/24 at 1500, For 2 doses, PACU Cont. to Floor/ICU, Please choose an indication: Surgical Prophylaxis Given 06/21/2024 10:52 PM EDT 2 g Given 06/21/2024 2:50 PM EDT 2 g celecoxib (CeleBREX) capsule 200 mg 200 mg Once, oral, On Fri06/21/24 at 0700, For 1 dose, Look-alike/Sound-alike medication, Pre-op Given 06/21/2024 6:57 AM EDT 200 mg dexAMETHasone (DECADRON) injection 8 mg 8 mg Once, intravenous, On Fri06/22/24 at 0900, For 1 dose, For IV Push administration give slowly over 5-7 minutes. Rapid administration of dexamethasone >10 mg may be associated with perineal irritation, consider administration via IVPB. Given 06/22/2024 8:12 AM EDT 8 mg escitalopram (LEXAPRO) tablet 10 mg 10 mg Every Night, oral, First dose (after last modification) on Fri06/21/24 at 2100 Given 06/21/2024 8:31 PM EDT 10 mg estradioL (ESTRACE) tablet 1 mg 1 mg Every Night, oral, First dose (after last modification) on Fri06/21/24 at 2100, Caution: Recommend wearing gloves during administration. DO NOT BREAK/CRUSH/CHEW. Employees who are , trying to become , or should not handle this medication. Dispose of trace medication (including packaging) in the BLACK waste bin. Given 06/21/2024 8:32 PM EDT 1 mg famotidine (PEPCID) tablet 20 mg 20 mg Once, oral, On Fri06/21/24 at 0700, For 1 dose, Pharmacist to renally dose if CrCl is less than 50 mL/min or on CRRT., Pre-op Given 06/21/2024 6:57 AM EDT 20 m g ferrous sulfate EC tablet 325 mg 325 mg Daily, oral, First dose on Fri06/21/24 at 1100, * DO NOT CRUSH THIS DOSAGE FORM *, Phase II/On Unit Given 06/22/2024 8:11 AM EDT 325 mg Given 06/21/2024 10:50 AM EDT 325 mg ipratropium-albuteroL (DUO-NEB) 0.5 mg-3 mg(2.5 mg base)/3 mL nebulizer solution 3 mL 3 mL Every 6 hours PRN, nebulization, wheezing, Starting on Fri06/21/24 at 1207, RESPIRATORY THERAPY TREATMENT Protect from Light, What is the respiratory therapy Modality? Small volume Nebulization meloxicam (MOBIC) tablet 7.5 mg 7.5 mg Every 12 hours interval, oral, First dose on Fri06/22/24 at 0900, 1st line analgesic, Phase II/On Unit Given 06/22/2024 8:12 AM EDT 7.5 mg mupirocin (BACTROBAN) 2 % ointment 1 application. intraNASAL, Once, On Fri06/21/24 at 0700, For 1 dose, Preprocedure to both nares preoperatively, Pre-op Given 06/21/2024 6:57 AM EDT 1 applicat ion. ondansetron (ZOFRAN) injection 4 mg 4 mg Every 8 hours PRN, intravenous, nausea, vomiting, Starting on Fri06/21/24 at 1024, Give IV if patient is unable to take orally. 1st line If inadequate response within 60 minutes, proceed to next-line agent for same PRN reason or contact provider if no further options ordered. For IV push, give over 2 - 5 minutes., Phase II/On Unit ondansetron (ZOFRAN-ODT) disintegrating tablet 4 mg 4 mg Every 8 hours PRN, oral, nausea, vomiting, Starting on Fri06/21/24 at 1024, 1st line. If inadequate response within 60 minutes, proceed to next-line agent for same PRN reason or contact provider if no further options ordered., Phase II/On Unit oxyCODONE (ROXICODONE) immediate release tablet 5 mg 5 mg Every 4 hours PRN, oral, moderate pain (4-6), Starting on Fri06/21/24 at 1024, 2nd line analgesic. Give only if inadequate response (less than 50% reduction in pain score) 60 minutes after administration of 1st line analgesics + adjuvants (if ordered). Look-alike/Sound-alike medication, Phase II/On Unit Given 06/22/2024 10:17 AM EDT 5 mg Given 06/22/2024 5:53 AM EDT 5 mg pantoprazole (PROTONIX) EC tablet 40 mg 40 mg Daily, oral, First dose on Fri06/21/24 at 1100, * DO NOT CRUSH THIS DOSAGE FORM *, Phase II/On Unit Given 06/22/2024 8:12 AM EDT 40 mg Given 06/21/2024 10:50 AM EDT 40 mg polyethylene glycol (GLYCOLAX) packet 17 g 17 g Daily, oral, First dose on Fri06/21/24 at 1100, Bowel Regimen - for prevention of constipation., Phase II/On Unit Given 06/22/2024 8:11 AM EDT 17 g Given 06/21/2024 10:50 AM EDT 17 g promethazine (PHENERGAN) 12.5 mg in sodium chloride 0.9 % (NS) 50 mL IVPB (Immediate Use Only) 12.5 mg Every 6 hours PRN, intravenous, at 150 mL/hr, nausea, vomiting, Starting on Fri06/21/24 at 1024, 2nd line. Give IV if patient is unable to take orally. If inadequate response within 60 minutes, proceed to next-line agent for same PRN reason or contact provider if no further options ordered. , Phase II/On Unit promethazine (PHENERGAN) tablet 25 mg 25 mg Every 6 hours PRN, oral, nausea, vomiting, Starting on Fri06/21/24 at 1024, 2nd line. If inadequate response within 60 minutes, proceed to next-line agent for same PRN reason or contact provider if no further options ordered., Phase II/On Unit sennosides (SENOKOT) tablet 17.2 mg 17.2 mg Every Night, oral, First dose on Fri06/21/24 at 2100, Bowel Regimen - for prevention of constipation., Phase II/On Unit Given 06/21/2024 8:32 PM EDT 17.2 mg sodium chloride 0.9 % infusion 125 mL/hr Continuous, intravenous, Starting on Fri06/21/24 at 1100, Phase II/On Unit Rate/Dose Verify 06/22/2024 9:55 AM EDT 125 mL/hr 125 mL/hr Rate/Dose Verify 06/22/2024 5:00 AM EDT 125 mL/hr 125 mL/ hr New Bag 06/22/2024 2:36 AM EDT 125 mL/hr 125 mL/hr traZODone (DESYREL) tablet 200 mg 200 mg Every Night PRN, oral, insomnia, Starting on Fri06/21/24 at 1206 Given 06/21/2024 9:15 PM EDT 200 mg documented in this encounter Active and Recently Administered Medications Times are shown in EDT. Scheduled Medication Order 06/20/2024 06/21/2024 06/22/2024 acetaminophen (TYLENOL) tablet 1,000 mg (COMPLETED) 1,000 mg Once, oral, On Fri06/21/24 at 0700, For 1 dose, Give preprocedure, Pre-op 0657 (Given - Provider: Tiffanie Das RN) aspirin EC tablet 81 mg 81 mg 2 times daily, oral, First dose on Fri06/22/24 at 0900, For 30 days, * DO NOT CRUSH THIS DOSAGE FORM * 0813 (Given - Provid er: Harmony Higginbotham LPN) busPIRone (BUSPAR) tablet 10 mg 10 mg 3 times daily, oral, First dose on Fri06/21/24 at 1500 1450 (Given - Provider: Monisha Burciaga LVN)2030 (Given - Provider: Jaimie Gallardo, BRUNA) 811 (Given - Provider: Harmony Higginbotham LPN) ceFAZolin in sterile water (ANCEF) 2 gram/20 mL syringe 2 g (COMPLETED) 2 g Once, intravenous, Administer over 3 Minutes, On Fri06/21/24 at 0700, For 1 dose, Administer within 60 minutes of incision or procedure start., Pre-op, Please choose an indication: Surgical Prophylaxis 0729 (Given - Provider: Moe Francois CRNA) ceFAZolin in sterile water (ANCEF) 2 gram/20 mL syringe 2 g (COMPLETED) 2 g Every 8 hours interval, intravenous, Administer over 3 Minutes, First dose on Fri06/21/24 at 1500, For 2 doses, PACU Cont. to Floor/ICU, Please choose an indication: Surgical Prophylaxis 1450 (Given - Provider: Monisha Burciaga LVN)2 (Given - Provider: Jaimie Gallardo RN) celecoxib (CeleBREX) capsule 200 mg (COMPLETED) 200 mg Once, oral, On Fri06/21/24 at 0700, For 1 dose, Look-alike/Sound-alike medication, Pre-op 06 (Given - Provider: Tiffanie Das RN) dexAMETHasone (DECADRON) injection 8 mg (COMPLETED) 8 mg Once, intravenous, On Fri06/22/24 at 0900, For 1 dose, For IV Push administration give slowly over 5-7 minutes. Rapid administration of dexamethasone >10 mg may be associated with perineal irritation, consider administration via IVPB. 811 (Given - Provid er: Harmony Higginbotham LPN) escitalopram (LEXAPRO) tablet 10 mg 10 mg Every Night, oral, First dose (after last modification) on Fri06/21/24 at 2100 2030 (Given - Provider: Jaimie Gallardo RN) estradioL (ESTRACE) tablet 1 mg 1 mg Every Night, oral, First dose (after last modification) on Fri06/21/24 at 2100, Caution: Recommend wearing gloves during administration. DO NOT BREAK/CRUSH/CHEW. Employees who are , trying to become , or should not handle this medication. Dispose of trace medication (including packaging) in the BLACK waste bin. 2031 (Given - Provider: Jaimie Gallardo, RN) famotidine (PEPCID) tablet 20 mg (COMPLETED) 20 mg Once, oral, On Fri06/21/24 at 0700, For 1 dose, Pharmacist to renally dose if CrCl is less than 50 mL/min or on CRRT., Pre-op 06 (Given - Provider: Tiffanie Das, BRUNA) ferrous sulfate EC tablet 325 mg 325 mg Daily, oral, First dose on Fri06/21/24 at 1100, * DO NOT CRUSH THIS DOSAGE FORM *, Phase II/On Unit 105 (Given - Provider: Monisha Burciaga LVN) 810 (Given - Provider: Harmony Higginbotham LPN) meloxicam (MOBIC) tablet 7.5 mg 7.5 mg Every 12 hours interval, oral, First dose on Fri06/22/24 at 0900, 1st line analgesic, Phase II/On Unit 811 (Given - Provid er: Harmony Higginbotham LPN) mupirocin (BACTROBAN) 2 % ointment 1 application. (COMPLETED) intraNASAL, Once, On Fri06/21/24 at 0700, For 1 dose, Preprocedure to both nares preoperatively, Pre-op 06 (Given - Provider: Tiffanie Das RN) pantoprazole (PROTONIX) EC tablet 40 mg 40 mg Daily, oral, First dose on Fri06/21/24 at 1100, * DO NOT CRUSH THIS DOSAGE FORM *, Phase II/On Unit 105 (Given - Provider: Monisha Burciaga LVN) 811 (Given - Provider: Harmony Higginbotham LPN) polyethylene glycol (GLYCOLAX) packet 17 g 17 g Daily, oral, First dose on Fri06/21/24 at 1100, Bowel Regimen - for prevention of constipation., Phase II/On Unit 105 (Given - Provider: Monisha Burciaga LVN) 810 (Given - Provider: Harmony Higginbotham LPN) sennosides (SENOKOT) tablet 17.2 mg 17.2 mg Every Night, oral, First dose on Fri06/21/24 at 2100, Bowel Regimen - for prevention of constipation., Phase II/On Unit 2031 (Given - Provider: Jaimie Gallardo RN) Continuous Medication Order 06/20/2024 06/21/2024 06/22/2024 lactated Ringer's infusion (CANCELED) 100 mL/hr Continuous, intravenous, Starting on Fri06/21/24 at 0700, Do not give simultaneously with ceftriaxone via a Y-site. 0700 (New Bag - Provider: Moe Francois CRNA)0837 (New Bag - Provider: Moe Francois CRNA)0945 (Anesthesia Volume Adjustment - Provider: Moe Francois CRNA) sodium chloride 0.9 % infusion 125 mL/hr Continuous, intravenous, Starting on Fri06/21/24 at 1100, Phase II/On Unit 1050 (New Bag - Provider: Monisha Burciaga LVN)1839 (New Bag - Provider: Monisha Burciaga LVN) 0236 (New Bag - Provider: Jaimie Gallardo RN)0500 (Rate/Dose Verify - Provider: Jaimie Gallardo RN)0955 (Rate/Dose Verify - Provider: Harmony Higginbotham LPN) PRN Medication Order 06/20/2024 06/21/2024 06/22/2024 acetaminophen (TYLENOL) tablet 1,000 mg 1,000 mg Every 8 hours PRN, oral, mild pain (1-3), Starting on Fri06/21/24 at 1024, 1st line analgesic, Phase II/On Unit albuterol 2.5 mg /3 mL (0.083 %) nebulizer solution 2.5 mg (COMPLETED) 2.5 mg Once as needed, nebulization, wheezing, Starting on Fri06/21/24 at 1003, For 1 dose, RESPIRATORY THERAPY TREATMENT , PACU, What is the respiratory therapy Modality? Small volume Nebulization 1007 (Given - Provider: Estrella Bui RN) HYDROmorphone (DILAUDID) injection 1 mg 1 mg Every 4 hours PRN, intravenous, severe pain (7-10), Starting on Fri06/21/24 at 1024, 3rd line analgesic. Give only if inadequate response (less than 50% reduction in pain score) 60 minutes after administration of 2nd line agent. May give in addition to 1st + 2nd line analgesics (+ adjuvants if ordered), Phase II/On Unit hydrOXYzine (ATARAX) tablet 25 mg 25 mg Every 6 hours PRN, oral, itching, Starting on Fri06/21/24 at 1024, Look-alike/Sound-alike medication, Phase II/On Unit ipratropium-albuteroL (DUO-NEB) 0.5 mg-3 mg(2.5 mg base)/3 mL nebulizer solution 3 mL 3 mL Every 6 hours PRN, nebulization, wheezing, Starting on Fri06/21/24 at 1207, RESPIRATORY THERAPY TREATMENT Protect from Light, What is the respiratory therapy Modality? Small volume Nebulization naloxone (NARCAN) injection 0.2 mg 0.2 mg Every 2 min PRN, intravenous, opioid reversal, respiratory depression,, Starting on Fri06/21/24 at 1024, Give for respiratory rate less than 10 breaths/min or if patient is difficult to arouse. Max dose = 10mg. Call provider., Phase II/On Unit ondansetron (ZOFRAN) injection 4 mg(Linked Group 1) 4 mg Every 8 hours PRN, intravenous, nausea, vomiting, Starting on Fri06/21/24 at 1024, Give IV if patient is unable to take orally. 1st line If inadequate response within 60 minutes, proceed to next-line agent for same PRN reason or contact provider if no further options ordered. For IV push, give over 2 - 5 minutes., Phase II/On Unit ondansetron (ZOFRAN-ODT) disintegrating tablet 4 mg(Linked Group 1) 4 mg Every 8 hours PRN, oral, nausea, vomiting, Starting on Fri06/21/24 at 1024, 1st line. If inadequate response within 60 minutes, proceed to next-line agent for same PRN reason or contact provider if no further options ordered., Phase II/On Unit oxyCODONE (ROXICODONE) immediate release tablet 5 mg 5 mg Every 4 hours PRN, oral, moderate pain (4-6), Starting on Fri06/21/24 at 1024, 2nd line analgesic. Give only if inadequate response (less than 50% reduction in pain score) 60 minutes after administration of 1st line analgesics + adjuvants (if ordered). Look-alike/Sound-alike medication, Phase II/On Unit 0553 (Given - Provid er: Jaimie Gallardo RN)1017 (Given - Provider: Harmony Higginbotham LPN) promethazine (PHENERGAN) 12.5 mg in sodium chloride 0.9 % (NS) 50 mL IVPB (Immediate Use Only)(Linked Group 2) 12.5 mg Every 6 hours PRN, intravenous, at 150 mL/hr, nausea, vomiting, Starting on Fri06/21/24 at 1024, 2nd line. Give IV if patient is unable to take orally. If inadequate response within 60 minutes, proceed to next-line agent for same PRN reason or contact provider if no further options ordered. , Phase II/On Unit promethazine (PHENERGAN) tablet 25 mg(Linked Group 2) 25 mg Every 6 hours PRN, oral, nausea, vomiting, Starting on Fri06/21/24 at 1024, 2nd line. If inadequate response within 60 minutes, proceed to next-line agent for same PRN reason or contact provider if no further options ordered., Phase II/On Unit xcijxcjzpdv-QSG-usjRDYmve-ke torolac (R.E.C.K.) 2.46-0.005-0.0008-0.3 mg/mL- 50 mL syringe in NS FOR PERIARTICULAR USE (CANCELED) As needed, Starting on Fri06/21/24 at 0813, Intra-op 0813 (Given - Provider: Fausto Jacobo MD - Comment: left knee) traMADoL (ULTRAM) tablet 50 mg 50 mg Every 6 hours PRN, oral, moderate pain (4-6), Starting on Fri06/21/24 at 1024, 1st line analgesic, Phase II/On Unit tranexamic acid (CYKLOKAPRON) injection (CANCELED) As needed, Starting on Fri06/21/24 at 0858, Intra-op 0858 (Given - Provider: Fausto Jacobo MD - Comment: left knee) traZODone (DESYREL) tablet 200 mg 200 mg Every Night PRN, oral, insomnia, Starting on Fri06/21/24 at 1206 2115 (Given - Provider: Jaimie Gallardo RN) vancomycin (VANCOCIN) injection (CANCELED) As needed, Starting on Fri06/21/24 at 0813, Intra-op 0813 (Given - Provider: Fausto Jacobo MD - Comment: mixed in 3000 ml of normal saline for irrigation) Linked Groups Order Group 1: ondansetron (ZOFRAN-ODT) disintegrating tablet 4 mgJump to med 4 mg Every 8 hours PRN, oral, nausea, vomiting, Starting on Fri06/21/24 at 1024, 1st line. If inadequate response within 60 minutes, proceed to next-line agent for same PRN reason or contact provider if no further options ordered., Phase II/On Unit Or ondansetron (ZOFRAN) injection 4 mgJump to med 4 mg Every 8 hours PRN, intravenous, nausea, vomiting, Starting on Fri06/21/24 at 1024, Give IV if patient is unable to take orally. 1st line If inadequate response within 60 minutes, proceed to next-line agent for same PRN reason or contact provider if no further options ordered. For IV push, give over 2 - 5 minutes., Phase II/On Unit Group 2: promethazine (PHENERGAN) tablet 25 mgJump to med 25 mg Every 6 hours PRN, oral, nausea, vomiting, Starting on Fri06/21/24 at 1024, 2nd line. If inadequate response within 60 minutes, proceed to next-line agent for same PRN reason or contact provider if no further options ordered., Phase II/On Unit Or promethazine (PHENERGAN) 12.5 mg in sodium chloride 0.9 % (NS) 50 mL IVPB (Immediate Use Only)Jump to med 12.5 mg Every 6 hours PRN, intravenous, at 150 mL/hr, nausea, vomiting, Starting on Fri06/21/24 at 1024, 2nd line. Give IV if patient is unable to take orally. If inadequate response within 60 minutes, proceed to next-line agent for same PRN reason or contact provider if no further options ordered. , Phase II/On Unit documented in this encounter Care Teams Customer Service Driver Relationship Specialty Start Date End Date Gurjit Mena MD [address] [place] [address] PCP - General Family Medicine 06/17/24 documented as of this encounter
--- OUTSIDE RECORDS SUMMARY | 2024-06-21 07:29 | XMS_ITS | Encounter Summary ---
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 Procedures IA ARTHRP KNE CONDYLE&PLATU MEDIAL&LAT COMPARTMENTS ARTHROPLASTY, KNEE, ROBOT-ASSISTED Fausto Nieves MD [address] [place] [address] Phone: tel: fax: Referral ID Status Reason Start Date Expiration Date Visits Re quested Visits Authorized [id number] 06/08/2024 1 1 Encounter Details Date Type Department Care Team (Late st Contact Info) Description 06/21/2024 7:29 AM EDT Anesthesia Event [facility] Operating Room [address] [place] [phone] Moe Francois CRNA [address] [place] [address] Beatriz Ventura CRNA Anesthesia Record Procedure Summary [...] t he electric, gas, oil, or water [employer] threatened to shut off services in your [...] Do you speak a language other than Marshallese at [facility]? No 06/21/2024 Do you want help with [...] CRNA - 06/21/2024 9:46 AM EDT Patient: Rna Ayala Procedure Summary Date: 06/21/24 Room / Location: [facility] OR OPERATING ROOM Anesthesia Start: 728 Anesthesia [...] and face mask Hydration status: acceptable Color: [place] Activity: Moves 4 extremities Inotropes/Vasopressors: N/A No notable events documented. Moe Francois CRNA 06/21/2024 9:46 AM EDT * Anesthesia Procedure Notes - Dmitriy Long MD - 06/21/2024 8:52 AM EDT Associated Order(s): Peripheral Nerve Block Peripheral Nerve Block Authorized by: Moe Farncois CRNA Performed by: Dmitriy Long MD Patient [...] supine Prep: ChloraPrep Patient monitoring: heart rate, cardiac nurse practitioner and continuous pulse ox Block type: adductor [...] See attached images uploaded to MEDIA via [employer] ( due to [facility] not having an interface between [...] a few minutes. Tidal volumes <200 with 91ydO7U peak pressure, SpO2 started to taper down, reached 93%. Rocuronium IV then intubated successfully, see additional intubation note * Anesthesia Preprocedure Evaluation - Dmitriy Long MD - 06/21/2024 6:49 AM EDT Anesthesia Pre Evaluation Ms. Ran Ayala is a 48 y.o. female being evaluated for the following: Date/Time: 06/21/24729 Procedure: ARTHROPLASTY, KNEE, ROBOT-ASSISTED (Left) Location: [facility] OR [facility] OPERATING ROOM Surgeons: Fausto Nieves MD BP [...] patient and spouse (daughter). Plan discussed with LEASES AND LAND SUPERVISOR. documented in this encounter Plan of Treatment Upcoming Encounters Date Type Department Care Team (Late st Contact Info) Description 07/28/2024 10:15 AM EDT Treatment [facility] OP Physical Therapy [address] [place] [phone] Du You, FIRER POWERHOUSE 07/30/2024 10:15 AM EDT Treatment [facility] OP Physical Therapy [address] [place] [phone] Du You, SURJIT 09/07/2024 10:00 AM EDT Office Visit [facility] - [place] [phone] Fausto Nieves MD [address] [place] [phone] documented as of this encounter Procedures Procedure [...] a few minutes. Tidal volumes <200 with 20vqJ2O peak pressure, SpO2 started to taper down, [...] supine Prep: ChloraPrep Patient monitoring: heart rate, cardiac nurse practitioner and continuous pulse ox Block type: adductor [...] See attached images uploaded to MEDIA via [employer] ( due to [facility] not having an interface between the [employer] and Radiology). us Moe Francois CRNA ANESTHESIA ORDERABLES Final Result documented in this encounter Visit Diagnoses Not on filedocumented in this encounter Administered Medications Inactive Administered Medications - up to 3 most recent administrations Medication Order MAR Action Action Date Dose Rate Site BUPivacaine-EPINEPHrine (MARCAINE w/EPI) 0.25 %-1:909983 injection perineural, Starting on Fri06/21/24 at 0705, [...] mg documented in this encounter Care Teams Linux System Administrator Relationship Specialty Start Date End Date Gurjit Mena MD [address] [place] [address] [place] [address] PCP - General Family Medicine 06/17/24 documented as of this encounter
--- OUTSIDE RECORDS SUMMARY | 2024-06-21 07:30 | XMS_ITS | Encounter Summary ---
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 Procedures RI ARTHRP KNE CONDYLE&PLATU MEDIAL&LAT COMPARTMENTS ARTHROPLASTY, KNEE, ROBOT-ASSISTED Fausto Jacobo MD [address] [place] [address] Phone: tel: fax: Referral ID Status Reason Start Date Expiration Date Visits Re quested Visits Authorized [id number] 06/08/2024 1 1 Encounter Details Date Type Department Care Team (Late st Contact Info) Description 06/21/2024 7:30 AM EDT - 06/21/2024 9:44 AM EDT Surgery [facility] Operating Room [address] [place] [phone] Fausto Jacobo MD [address] [place] [address] ARTHROPLASTY, KNEE, ROBOT-ASSISTED Social History Tobacco [...] your living situation today? I have a [facility] place to live 06/21/2024 Think about [...] Do you speak a language other than Czech at [facility]? No 06/21/2024 Do you want [...] Your Medications These medications were sent to [id number] - [place], [place] - [address], [place] [address] acetaminophen 500 MG tablet aspirin 81 MG [...] Discharge Follow UP: Contact information for follow-up [facility] [address] [place] [address] Next Steps: Go to Instructions: Walker provided by [facility] ([phone]). If you have any questions or concerns regarding your WALKER, please call them at [phone]. [facility] Outpatient Physical Therapy ([facility] Location) [facility] Outpatient Physical Therapy ([facility]) [address] [place] [address] Next Steps: Go to Instructions: Outpatient physical therapy provided by [facility] Outpatient Physical Therapy ([facility]) [phone]. APPOINTMENT: Friday, June 23, 2024 at 8:45 am. If you have any questions or concerns, please call them at [phone]. Gurjit Mena MD Specialty: Family Medicine Relationship: PCP - General [facility] [address] [address] Next Steps: Follow up in 1 week(s) [...] Everywhere. * Fall Prevention in Hospitals Adult (Czech) * Total Knee Replacement Care After Qdkj-xa-Kfvo (Czech) * Infection Prevention in the Home (Czech) * Pain Medicine Instructions Sjss-bs-Lkus (Czech) documented in this encounter Medications at Time [...] KNEE, ROBOT-ASSISTED; Surgeon: Fausto Jacobo MD; Location: [facility]; Service: Orthopedic Surgery; Laterality: Left; General Visit type: Treatment Approved by: Nursing Patient disposition upon entry: Patient verified by name, Patient verified by date of , Supinein bed, All needs met and within reach, Call light/pull cord in reach, Head of bed >30 degrees, Nursing aware/notified Co-treated by: PT Assisted by: pulmonary function technician Precautions Weightbearing status: Weight bearing as [...] Date of Co-treated by: OT Assisted by: pulmonary function technician Precautions Weight-Bearing Status: Weight Bearing As [...] KNEE, ROBOT-ASSISTED; Surgeon: Fausto Jacobo MD; Location: [facility]; Service: Orthopedic Surgery; Laterality: Left; General Visit Type: Initial Evaluation Approved By: Nurse Bearden Patient Disposition Upon Entry: Supine in bed, Call Light/Pull Cord in reach, All needs met and within reach, Nursing aware/notified, HOB >30 degrees, [place] hose on Patient Verified By: Name and Date of Co-treated by: OT Assisted by: pulmonary function technician Precautions Weight-Bearing Status: Weight Bearing As [...] KNEE, ROBOT-ASSISTED; Surgeon: Fausto Jacobo MD; Location: [facility]; Service: Orthopedic Surgery; Laterality: Left; General Visit type: Initial Evaluation Approved by: Nursing Patient disposition upon entry: Patient verified by name, Patient verified by date of , Supinein bed, All needs met and within reach, Call light/pull cord in reach, Head of bed >30 degrees, Nursing aware/notified Co-treated by: PT Assisted by: pulmonary function technician Precautions Weightbearing status: Weight bearing as [...] Toileting:Standby Assist, Contact guard assist Outcome Measures [facility] Daily Living Functional Assessment How much help [...] to help her recover. Patient/family provided with [facility] approved choice list and Patient choice letter along with Quality data link to access Medicare.gov Care Compare website to review potential post-acute providers. Choice provided to patient/family, and patient preferences received and referral(s) submitted to requested providers. Referral(s) submitted to: DME: no preference, [facility], [facility]. * Tiffanie Das RN - 06/21/2024 6:36 AM EDT Uses cpap at home documented in this encounter H&P Notes * Shobha Childs APRN - 06/21/2024 12:07 PM EDT Images from the original note were not included. History & Physical - Date of Service: 06/21/2024 Name: Ran Kamara Room: [address] [place] [address] : 1975 Age: 48 y.o. @ATTENDING@ Gurjit [...] KNEE, ROBOT-ASSISTED; Surgeon: Fausto Jacobo MD; Location: [facility]; Service: Orthopedic Surgery; Laterality: Left; Adhesive Social History Tobacco Use Smoking status: Never Smokeless tobacco: Never Substance Use Topics Alcohol use: Not Currently Family History Problem Relation Name Age of Onset Atrial fibrillation Mother Heart attack Father Hypertension Father Diabetes Sister Earl Syndrome (HNPCC) Brother Prior to Encounter Medication List (as reviewed in [facility]) Medications Ventolin HFA 90 mcg/actuation inhaler [...] XR knee 1 or 2 views left [[id number]] Collected: 06/21/24 1048 Order Status: Completed Updated: [...] mild risk and is being admitted to [facility] OP in a bed status. ELOS: [...] 10:08 AM EDT NAME: Ran Kamara CSN: [id number] : 1975 PCP: Gurjit Mena MD REASON [...] Heart attack Father Hypertension Father Diabetes Sister Ealr Syndrome (HNPCC) Brother REVIEW OF SYSTEMS General: [...] your prescription refills for excessive abuse or oysterman use. If necessary, you will be referred to lead based paint technician. We will monitor your use of scheduled [...] PROCEDURES PERFORMED: Left total knee arthroplasty using [employer] robotic assistance ([employer] system using cementless technology with cruciate retaining size 3 femur, size 3 tibia, 10 mm deep dish highly cross-linked X3 polyethylene insert and 29 mm asymmetric patella). ASSISTANTS: 1. Sho Rani PA-C. 2. Brit Jerez CFA. 3. Olena [...] and attached trackers and checkpoints for the [employer] system and went through systematic registration until we had good correlation. Analysis revealed 7 degrees of nome varus with 4 degrees of hyperextension. We [...] standard tibial and femoral cuts using the [employer] robotic system in sequence. With trial components [...] tolerated the procedure well without any complications. /[id number] Fausto Jacobo MD ASC/AQ / ASC / AQS /[id number] documented in this encounter Miscellaneous Notes * [...] Info) Description 07/28/2024 10:15 AM EDT Treatment [facility] OP Physical Therapy [address] [place] [phone] Du You, SURJIT 07/30/2024 10:15 AM EDT Treatment [facility] OP Physical Therapy [address] [place] [phone] Du You, INTERMEDIATE TEACHER 09/07/2024 10:00 AM EDT Office Visit [facility] - [address] [phone] Fausto Jacobo MD [address] [place] [address] Scheduled Referrals Name Type Priority Associated Diagnoses [...] VIEWS LEFT STAT 06/21/2024 10:01 AM EDT RI ARTHRP KNE CONDYLE&PLATU MEDIAL&LAT COMPARTMENTS 06/21/2024 7:29 AM EDT Traumatic arthritis of left knee Case Notes 0630Adhesive allergy TISSUE EXAM [facility] AP Routine 06/21/2024 7:13 AM EDT Traumatic arthritis of left knee documented in this encounter Results * (ABNORMAL) Hemoglobin and Hematocrit (06/22/2024 3:45 AM EDT) Hemoglobin 11.6(L) 11.7 - 15.8 GM/DL 06/22/2024 4:09 AM EDT [facility] Hematocrit 34.7(L) 35.0 - 47.0 % 06/22/2024 4:09 AM EDT [facility] Blood Venipuncture / Unknown 06/22/2024 3:45 AM EDT 06/22/2024 3:57 AM EDT us Fausto S Lizbeth RIZVI LAB BLOOD ORDERABLES Final Res ult [facility] [address] [place] [address] * XR knee 1 or 2 views [...] CYTOLOGY LABORATORY Comment: [facility] [address] [place] [address] or [phone] Noe Fuentes M.D., Technical Service Rep PATIENT NAME LABORATORY NO. [id number] RAN KAMARA. [id number] AGE SEX SSN CLIENT REF # [place] [id number] 1975 F [id number] [place] REQUESTING Emigdio ATTENDING Emigdio COPY TO. [address] [place] [address] DATE COLLECTED DATE RECEIVED DATE REPORTED 06/21/2024 06/21/2024 06/22/2024 DIAGNOSIS: A. BONE FRAGMENTS, GROSS ONLY, LEFT KNEE: GROSS DIAGNOSIS: Changes consistent with osteoarthritis B. HARDWARE, LEFT KNEE: GROSS DIAGNOSIS: Consistent with explanted hardware BG/sm CLINICAL HISTORY: Traumatic arthropathy, left knee SPECIMENS RECEIVED: A. BONE FRAGMENTS, GROSS ONLY, LEFT KNEE B. HARDWARE, LEFT KNEE Professional interpretation rendered by Paramjit Roldan M.D., F.C.A.P. at [employer], [employer], [address] [place] [address]. GROSS DESCRIPTION: A. Received in formalin labeled [...] BY: Paramjit Roldan M.D., F.C.A.P. CPT CODES: [id number] Bone STRUCTURE OF LEFT KNEE REGION / Unknown 06/21/2024 7:13 AM EDT Biomedical device (physical object) STRUCTURE OF LEFT KNEE REGION / Unknown 06/21/2024 9:07 AM EDT Fausto Jacobo MD PATHOLOGY/CYTOLOGY ORDERABLES Final Result [facility] [address] [place] [address] documented in this encounter Visit Diagnoses Diagnosis [...] no further options ordered., Phase II/On Unit znpndyzrivy-WXP-iwjZOUvvq- ketorolac (R.E.C.K.) 2.46-0.005-0.0008-0.3 mg/mL- 50 mL syringe [...] no further options ordered., Phase II/On Unit szaqykhjlws-IVQ-nvbSGXgtq-ke torolac ([employer].K.) 2.46-0.005-0.0008-0.3 mg/mL- 50 mL syringe [...] Unit documented in this encounter Care Teams Jack Frame Tender Relationship Specialty Start Date End Date Gurjit Mnea MD [address] [place] [address] [place] [id number] PCP - General Family Medicine 06/17/24 documented as of this encounter
--- OUTSIDE RECORDS SUMMARY | 2024-06-23 08:45 | XMS_ITS | Encounter Summary ---
Author Organization [employer] Address [address] [place] [address] Care Team Providers Care Cementing Machine Operator Name Role Phone Gurjit Mena MD Primary Care Provider +1- [phone] Reason for Visit * Consultation (Routine) - Authorized Specialty Diagnoses / Procedures Referred By William mata Referred To Contact Physical Therapy Diagnoses Status post left knee replacement Fausto Nieves MD [address] [place] [address] Phone: tel: fax: Referral ID Status Reason Start Date Expiration Date Visits Requested Visits Authorized [id number] Authorized Specialty Services Required 06/21/2024 08/20/2024 15 15 Encounter Details Date Type Department Care Team (Late st Contact Info) Description 06/23/2024 8:45 AM EDT Evaluation [facility] OP Physical Therapy [address] [place] [phone] Murali Bear, PT Status post left knee replacement with ANNA (Primary Dx) Social History Tobacco Use Types Packs/Day Years [...] Do you speak a language other than Vietnamese at [place]? No 06/21/2024 Do you want help with [...] on file documented as of this encounter Progress Notes * Murali Bear, PT - 06/23/2024 8:45 AM EDT Images from the original note were not included. Outpatient Therapy Services Physical Therapy Evaluation Date of Service: 06/23/2024 Time In: 849 Time Out: 922 Patient name: Ran Ayala : 1975, 48 y.o. Medical Diagnosis: 1. Status post left knee replacement with ANNA Referring Provider: Fausto Nieves MD Payor: MEDICAID - MEDICAID MGD CARE / Plan: [employer] MEDICAID / Product Type: *No Product type* / Date of Onset: 06/21/2024 Past Medical History: Diagnosis Date Anxiety Bradycardia Migraine FARHEEN on CPAP Past Surgical History: Procedure Laterality Date BREAST SURGERY duct removal CARDIAC SURGERY loop recorder CARPAL TUNNEL RELEASE Left SECTION x3 HYSTERECTOMY KNEE OPEN LATERAL RELEASE Bilateral multiple MAKOPLASTY,KNEE Left 06/21/2024 Procedure: ARTHROPLASTY, KNEE, ROBOT-ASSISTED; Surgeon: Fausto Nieves MD; Location: [facility]; Service: Orthopedic Surgery; Laterality: Left; Contraindications/Precautions: GAVINO, PARTH (DOS: 06/21/2024) Current Outpatient Medications Medication Instructions acetaminophen (TYLENOL EXTRA STRENGTH) 1,000 mg, oral, Every 8 hours aspirin 81 mg, oral, 2 times daily busPIRone (BUSPAR) 10 mg, 3 times daily cholecalciferol (VITAMIN D3) 125 mcg (5,000 unit) tablet 1 capsule, Daily docusate sodium (COLACE) 100 mg, oral, 2 times daily escitalopram (LEXAPRO) 20 mg, oral, Daily estradioL (ESTRACE) 1 mg, Daily ferrous sulfate 325 mg, oral, Daily fluticasone furoate-vilanteroL (BREO ELLIPTA) 200-25 mcg/dose dsdv 1 puff, inhalation, Daily ipratropium (ATROVENT HFA) 17 mcg/actuation inhaler 2 puffs, inhalation, As needed meloxicam (MOBIC) 15 mg, oral, Daily multivitamin per tablet 1 tablet, oral, Daily, ( Stress formula ) oxyCODONE (ROXICODONE) 5 mg, oral, Every 4 hours PRN pantoprazole (PROTONIX) 40 mg, oral, Daily traMADoL (ULTRAM) 50 mg, oral, Every 8 hours PRN traZODone (DESYREL) 200 mg, Every Night PRN Ventolin HFA 90 mcg/actuation inhaler 2 puffs, inhalation, Every 4 hours PRN Allergies Allergen Reactions Adhesive Rash and Swelling Previous Physical Therapy: yes, prior knee injuries Prior Functional Status: independent, no AD Personal Information Resides with: No One Signs of Abuse: No Work Status: currently not working, but will be starting soon SUBJECTIVE Patient reports to the clinic s/p PARTH on 06/21/2024. She states her pain is increased significantly today. She has not started the CPM but has been performing the zero knee for about 2 minutes at a time. Patient notes a past history of multiple knee injuries and surgeries prior to having a TKA. 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 Pain Current: 11/26 OBJECTIVE There were no vitals taken for this visit. Test/Measurements Knee ROM (degrees) LEFT Flexion 19 Extension Lacking 8 Strength Knee LEFT Flexion Not assessed this date Extension Not assessed this date Special Tests Knee Right/Left/Bilateral +/- Not performed due to LTKA Gait Weight bearing status: Weightbearing as Tolerated (WBAT) Assistive Device Used: Two Wheel Rolling Walker Assist Level: Supervision Deviation Pattern: Left lower extremity antalgic Knee/Foot Compensations: Reduced Left TKE and Decreased Left Knee Flexion Sequencing: Step To Gait Heel Strike: none Base of Support: narrow Dia: slow Comments: ambulated into the clinic with a knee immobilizer Functional Outcome Measure: LEFS: INTERVENTIONS Therapeutic Exercise Sets x Repetitions Weight/Resistance Cues/Comments HEP Heel Prop 5 min [x] Heel Slides 3'/2' [x] Quad Sets 3 x 10 [x] Ankle Pumps 3 x 10 [x] Calf Stretch with Strap 5 x 15 sec [x] Hamstring Stretch 5 x 15 sec [x] [] [] Total Treatment (min): 33' Timed Treatment (min): Physical Therapy Evaluation: Low Complexity (19969) Therapeutic Exercise (31134) 20 minutes ASSESSMENT Patient is a 48 YO female who reports to PT s/p LTKA on 06/21/2024. Patient ambulates into the clinic with a L antalgic gait pattern with a knee immobilizer. Patient's L knee ROM is significantly limited this date to 19 degrees of flexion and is lacking 8 degrees of extension. Patient's L knee stren gth was not formally tested this date due to recency of surgery and pain levels. However, patient demonstrated moderate to severe difficulty moving her LLE against gravity secondary to pain. Patient was educated on importance of performing HEP, CPM and the zero knee at home to improve knee mobilityand quad control. Patient performed weight shifts and the ability to ambulate in the clinic withouther knee immobilizer with no instances of knee buckling. Patient was encouraged to sleep with the knee immobilizer at night to maintain knee extension and for safety if [facility] until her quad control improves. Patient will benefit from s [facility] physical therapy services to return to premorbid mobility, strength and overall function. Overall rehab potential is Good. The patient was educated and verbalized understanding regarding their diagnosis, prognosis, and plan of care. The patient demonstrates a good understanding of the risks, benefits, precautions/contraindications, & prognosis of their skilled rehabilitation episodeof care. Barriers to Rehab: No Learning Barriers PLAN OF CARE Ran Ayala requires skilled physical therapy services to address the below stated problems/goals, using Therapeutic Exercise (88982), Therapeutic Activity (67110), Gait Training (44480), Manual Therapy (23276), Neuromuscular Re- education (78854), and Hot/Cold Packs 1x/Day. Skilled intervention required to decrease pain, increase range of motion, increase strength, improve balance, improve motor control, improve functional mobility, decrease swelling, learn home exercise program, and return to premorbid state. Prognosis: Good Problems: Pain Postural deficits Decreased ROM Decreased strength Gait deficits Decreased balance Decreased functional mobility Patient Goal: Decreased Pain Decrease Swelling Improve Mobility Improve Strength Improve Ambulation Improve Balance/Decrease Falls Resume ADL's w/o Symptoms Return to Work/Regular Duty Learn Home Exercise Program Patient Education: Eval results/Plan of Care, Disease Process, Body mechanics, Positioning, Safety precautions, HEP, Pt/CG verbalized understanding, Pt/CG asked approp questions, Pt/CG demonstrated carry-over, and Handouts provided Mcc Goals: Patient will demonstrate 4+/5 L knee flexion and extension strength for improved ability to navigate stairs in 12 weeks. Patient will improve L knee ROM to 0-110 degrees for improved gait mechanics in 12 weeks. LEFS will improve to 55/80 for significant improvement in subjective LE function for completing ADLs and work duties in 12 weeks. Patient will be independent with discharge home exercise program to improve self-care ADL's, household ADL's, work tasks, and recreational activity. Plan of Care Certification Date: 06/23/2024 - 09/15/2024 Frequency/Duration: 2x/Week for 12 weeks Electronically signed by: Murali Bear PT 06/23/2024, 2:28 PM EDT This therapy plan of care has been sent to the referring provider for awareness and their review. Cosigned by Fausto Nieves MD at 06/24/2024 6:54 AM EDT documented in this encounter Plan of Treatment Upcoming Encounters Date Type Department Care Team (Late st Contact Info) Description 07/28/2024 10:15 AM EDT Treatment [facility] OP Physical Therapy [address] [place] [phone] [place] Marcellshainalizzie, EMPLOYMENT SECURITY OFFICER 07/30/2024 10:15 AM EDT Treatment [facility] OP Physical Therapy [address] [place] [phone] Du You, EMPLOYMENT SECURITY OFFICER 09/07/2024 10:00 AM EDT Office Visit [facility] Orthopedics - [address] [phone] Fausto Nieves MD [address] [place] [address] documented as of this encounter Visit Diagnoses Diagnosis Status post left knee replacement with ANNA- Primary documented in this encounter Care Teams Cementing Machine Operator Relationship Specialty Start Date End Date Gurjit Mena MD [address] [place] [address] PCP - General Family Medicine 06/17/24 documented as of this encounter
--- OUTSIDE RECORDS SUMMARY | 2024-06-28 17:23 | XMS_ITS | Encounter Summary ---
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 Encounter Details Date Type Department Care Team (Late st Contact Info) Description 06/28/2024 5:23 PM EDT - 06/28/2024 8:04 PM EDT Emergency [facility] Emergency Department [address] [place] [phone] Essence Michaud MD [address] [place], [place] [id number] Acute pain of left knee (Primary Dx) Discharge Disposition: Home or Self Care Social [...] Date Record ed How often does anyone, inclu ding family and friends, physically hurt you? Never 06/21/2024 How often does anyone, inclu ding family and friends, insult or talk down [...] Do you speak a language other than [place] at [facility]? No 06/21/2024 Do you want [...] Sign Reading Time Taken Comments Blood Pressure 129/63 06/28/2024 8:03 PM EDT Pulse 66 06/28/2024 8:03 PM EDT Temperature 37.1 C (98.8 F) 06/28/2024 8:03 PM EDT Respiratory Rate 20 06/28/2024 8:03 PM EDT Oxygen Saturation 94% 06/28/2024 8:03 PM EDT Inhaled Oxygen Concentration - - Weight 97.5 kg (215 lb) 06/28/2024 5:28 PM EDT Height 160 cm (5' 3 ) 06/28/2024 5:28 PM EDT Body Mass Index 38.09 06/28/2024 5:28 PM EDT documented in this encounter Discharge Instructions * Discharge Instructions* Melvin Yee APRN - 06/28/2024 8:02 PM EDT Patient is to leave the surgical bandage in place. You are to call Dr. Roman's office and follow-up tomorrow regarding today's ED visit. You are welcome to return to the ED if symptoms worsen persist or feel necessary. * Attachments The following attachments cannot be sent through Care Everywhere. * Acute Knee Pain Adult (B[place]udian) documented in this encounter Medications at Time [...] daily for 30 doses. 30 tablet 06/22/2024 oxyCODONE (ROXICODONE) 5 MG immediate release tablet [...] 06/22/2024 5 documented as of this encounter ED Notes * Melvin Yee, STAN - 06/28/2024 5:31 PM EDT Subjective Chief Complaint: General Illness (Pt presents to ED with chills, body aches and low body temp sincelast night.Pt had knee replacement on 06/21. ) HPI is a 48-year-old female presents to the emergency department following a total knee replacementperformed on June [address] Salas. Patient notes extreme pain to the surgical site starting last evening. She has been prescribed Percocet however does not like to take pain medications. Patient denies any active drainage however has the original dressing still in place. She is scheduled to follow-up with Dr. Cm on July 06. She notes feeling as though she has a fever however has not taken her temperature. Patient has had an uneventful postsurgical rehab. Patient History Past Medical History: Diagnosis Date Anxiety Bradycardia Migraine FARHEEN on CPAP Past Surgical History: Procedure Laterality Date BREAST SURGERY duct removal CARDIAC SURGERY loop recorder CARPAL TUNNEL RELEASE Left SECTION x3 HYSTERECTOMY KNEE OPEN LATERAL RELEASE Bilateral multiple MAKOPLASTY,KNEE Left 06/21/2024 Procedure: ARTHROPLASTY, KNEE, ROBOT-ASSISTED; Surgeon: Fausto Nieves MD; Location: [facility]; Service: Orthopedic Surgery; Laterality: Left; Family History Problem Relation Name Age of Onset Atrial fibrillation Mother Heart attack Father Hypertension Father Diabetes Sister Earl Syndrome (HNPCC) Brother Social History Tobacco Use Smoking status: Never Smokeless tobacco: Never Substance Use Topics Alcohol use: Not Currently I reviewed the HPI, ROS and PFSH documentation recorded by others in the medical record and supplemented my note as needed. Review of Systems Review of Systems Constitutional: Negative for chills, fatigue and fever. HENT: Negative for congestion, ear pain, rhinorrhea and sore throat. Eyes: Negative for discharge, itching and visual disturbance. Respiratory: Negative for cough, chest tightness, shortness of breath, wheezing and stridor. Cardiovascular: Negative for chest pain, palpitations and leg swelling. Gastrointestinal: Negative for abdominal distention, abdominal pain, constipation, diarrhea, nauseaand vomiting. Genitourinary: Negative for dysuria and flank pain. Musculoskeletal: Negative for back pain and myalgias. Skin: Positive for wound. Negative for rash. Neurological: Negative for headaches. Psychiatric/Behavioral: Negative for confusion and suicidal ideas. Physical Exam ED Triage Vitals [06/28/24 1728] Encounter Vitals Group BP 129/63 Systolic BP Percentile Diastolic BP Percentile Pulse 66 Resp 20 Temp 98.8 ??F (37.1 ??C) Temp src Temporal Art SpO2 96 % Weight 97.5 kg (215 lb) Height 1.6 m (5' 3 ) Head Circumference Peak Flow Pain Score Pain Loc Pain Education Exclude from Growth Chart Physical Exam Vitals and nursing note reviewed. Constitutional: General: She is not in acute distress. Appearance: She is not ill-appearing. HENT: Head: Normocephalic and atraumatic. Right Ear: External ear normal. Left Ear: External ear normal. Nose: Nose normal. No congestion. Mouth/Throat: Mouth: Mucous membranes are moist. Eyes: Pupils: Pupils are equal, round, and reactive to light. Cardiovascular: Rate and Rhythm: Normal rate and regular rhythm. Pulses: Normal pulses. Heart sounds: Normal heart sounds. No murmur heard. Pulmonary: Effort: Pulmonary effort is normal. No respiratory distress. Breath sounds: Normal breath sounds. No stridor. No wheezing, rhonchi or rales. Chest: Chest wall: No tenderness. Abdominal: General: Bowel sounds are normal. There is no distension. Palpations: Abdomen is soft. Tenderness: There is no abdominal tenderness. There is no right CVA tenderness, left CVA tendernessor guarding. Musculoskeletal: General: No swelling or tenderness. Normal range of motion. Cervical back: Normal range of motion and neck supple. No tenderness. Right lower leg: No edema. Left lower leg: No edema. Comments: Range of motion testing was deferred due to pain. Skin: General: Skin is warm and dry. Capillary Refill: Capillary refill takes less than 2 seconds. Coloration: Skin is not jaundiced. Findings: No rash. Comments: Left knee surgical site shows no evidence of infection. Incision site is well-approximated with no active drainage. No erythema or warmth to touch was noted. Neurological: General: No focal deficit present. Mental Status: She is alert and oriented to person, place, and time. Mental status is at baseline. Motor: No weakness. Psychiatric: Mood and Affect: Mood normal. Behavior: Behavior normal. Thought Content: Thought content normal. Judgment: Judgment normal. Neurological Exam Mental Status Alert. Oriented to person, place, and time. Cranial Nerves CN III, IV, : Pupils equal round and reactive to light bilaterally. Ortho Exam ED Course & MDM Medications morphine injection 4 mg (4 mg intravenous Given 06/28/241734) ondansetron (ZOFRAN) injection 4 mg (4 mg intravenous Given 06/28/241734) Results for orders placed or performed during the hospital encounter of 06/28/24 CBC with Auto Diff Result Value Ref Range WBC 8.3 4.8 - 10.8 K/??L RBC 3.88 3.50 - 5.20 M/??L Hemoglobin 11.8 11.7 - 15.8 GM/DL Hematocrit 35.1 35.0 - 47.0 % MCV 91 81 - 101 fL MCH 30.4 27.0 - 34.0 pg MCHC 33.6 32.0 - 36.0 GM/DL RDW 12.5 11.5 - 14.5 % Platelets 365 150 - 400 K/CU MM MPV 9.6 9.4 - 12.4 fL Nucleated Red Blood Cell 0.0 0 - 0.2 % % Neutros 57 37 - 80 % % Lymphs 29 10 - 50 % % Monos 8 5 - 13 % % Eos 6 0 - 7 % % Baso 1 0 - 3 % NRBC Absolute <0.01 0 - 0.012 K/ul # Neutros 4.68 2.00 - 6.90 K/??L # Lymphs 2.37 0.60 - 3.40 K/??L # Monos 0.62 0.00 - 0.90 K/??L # Eos 0.48 0.00 - 0.70 K/??L # Baso 0.05 0.00 - 0.20 K/??L Immature Granulocytes-Relative 1.00 % # IG 0.08 (H) 0.00 - 0.00 K/uL Comprehensive metabolic panel Result Value Ref Range Sodium 139 136 - 145 meq/L Potassium 4.6 3.5 - 5.1 meq/L Chloride 106 98 - 107 meq/L CO2 25 21 - 32 meq/L Calcium 9.0 8.5 - 10.1 mg/dL Glucose 90 70 - 99 mg/dL BUN 14 7 - 18 mg/dL Creatinine 0.87 0.55 - 1.10 mg/dL BUN/Creatinine 16 Albumin 3.1 (L) 3.4 - 5.0 g/dL Alkaline Phosphatase 102 46 - 116 U/L ALT 32 12 - 78 U/L AST 42 (H) 15 - 37 U/L Total Bilirubin 0.7 0.2 - 1.0 mg/dL Protein, Total 7.3 6.4 - 8.2 gm/dL Anion Gap 13 11 - 22 A/G Ratio 0.7 Globulin 4.2 g/dL Osmolality Calc 277.5 mOsm/kg eGFR (mL/min/1.73m2) >60 >=60 mL/min/1.73m2 Lactic Acid with reflex (SJ) Result Value Ref Range Lactic Acid Level (mmol/L) 0.9 0.4 - 2.0 mmol/L C-Reactive Protein Result Value Ref Range CRP 4.44 (H) 0.05 - 0.25 mg/dL US DOPPLER VENOUS LEG LEFT Preliminary Result No evidence of deep venous thrombosis. Images reviewed, interpreted, and dictated by Dr. Som Murphy. Transcribed by Estefania Quinteros. ED Course as of 06/28/242003June 28, [address] Michaud: I saw the patient [id number]-hall. I performed a substantive portion of the MDM. [HD] ED Course User Index [HD] Essence Michaud MD Procedures Medical Decision Making Presented following a total knee replacement on June [address] Salas. Her surgical incision site showed no evidence of infection. She was CBC CRP and CMP all were negative. I did rule out a possible DVT with a venous Doppler which was negative for DVT. Patient's pain controlled here in theemergency department. I did contact Dr. Marks who suggest patient follow-up with Dr. Salas in the office tomorrow. At this point patient is happy with her ER stay and agreeable to my plan of care.She is welcome to return to the ED if symptoms worsen persist or feels necessary. Amount and/or Complexity of Data Reviewed Labs: ordered. Risk Prescription drug management. Assessment & Plan Clinical Impression Diagnosis Comment Added By Time Added Acute pain of left knee Melvin Yee APRN 06/28/2024 8:01 PM Disposition Discharge [1] - 06/28/2024 8:01 PM New Prescriptions No medications on file Contact information for follow-up Fausto Nieves MD Specialty: Orthopedic Surgery, Orthopaedic Surgery - Spine, Orthopedic Surgery & Joint Reconstruction, Orthopaedic Surgery - Spine, Orthopedic Surgery - Spine, Orthopedic Surgery - Knee, Orthopedic Surgery & Joint Reconstruction, Orthopedic Surgery - Hand, Orthopedic Surgery - Spine, Orthopedic Surgery - Shoulder [address] [place] [id number] Next Steps: Call in 1 day(s) Instructions: Follow-up in the office tomorrow documented in this encounter Plan of Treatment Upcoming Encounters Date Type Department Care Team (Late st Contact Info) Description 07/28/2024 10:15 AM EDT Treatment [facility] OP Physical Therapy [address] [place] [phone] Du You PTA 07/30/2024 10:15 AM EDT Treatment [facility] OP Physical Therapy [address] [place] [phone] [employer], SURJIT 09/07/2024 10:00 AM EDT Office Visit [facility] - [address] [phone] Fausto Nieves MD [address] [phone] documented as of this encounter Procedures Procedure Name Priority Date/Time Associated Diagnosis Comments US DOPPLER VENOUS LEG LEFT STAT 06/28/2024 7:19 PM EDT CBC W/ AUTO DIFF STAT 06/28/2024 5:32 PM EDT LACTIC ACID WITH REFLEX STAT 06/28/2024 5:32 PM EDT C-REACTIVE PROTEIN STAT 06/28/2024 5: 32 PM EDT COMPREHENSIVE METABOLIC PANEL STAT 06/28/2024 5:32 PM EDT documented in this encounter Results * US DOPPLER VENOUS LEG LEFT (06/28/2024 7:19 PM EDT) Anatomical Region Laterality Modality Lower Extremity Ultrasound 06/28/2024 8:00 PM EDT Impressions 06/28/2024 8:07 PM EDT No evidence of deep venous thrombosis. Images reviewed, interpreted, and dictated by Dr. Som Murphy. Transcribed by Estefania Quinteros. Narrative 06/28/2024 8:07 PM EDT LEFT LOWER EXTREMITY VENOUS DOPPLER CLINICAL HISTORY: Chills, redness, body aches. COMPARISON: None. FINDINGS: Sharp-scale, color Doppler and pulsed Doppler evaluation reveal normal compressibility, flow, and augmentation. There are normal venous waveforms. Procedure Note Som Murphy MD - 06/28/2024 LEFT LOWER EXTREMITY VENOUS DOPPLER CLINICAL HISTORY: Chills, redness, body aches. COMPARISON: None. FINDINGS: Sharp-scale, color Doppler and pulsed Doppler evaluation reveal normal compressibility, flow, and augmentation. There are normal venous waveforms. IMPRESSION: No evidence of deep venous thrombosis. Images reviewed, interpreted, and dictated by Dr. Som Murphy. Transcribed by Estefania Quinteros. Melvin Yee APRN CV VASCULAR ORDERABLE S Final Result * (ABNORMAL) C-Reactive Protein (06/28/2024 5:32 PM EDT) Pathologist [facility] CRP 4.44(H) 0.05 - 0.25 mg/dL 06/28/2024 6:08 PM EDT [facility] Blood Venipuncture / Unknown 06/28/2024 5:32 PM EDT 06/28/2024 5:37 PM EDT Melvin Yee APRN LAB BLOOD ORDERABLES Final Result Performing Organization Address City/[facility]/ZIP Co de Phone Number [facility] [address] [place] [address] * Lactic Acid with reflex (SJ) (06/28/2024 5:32 PM EDT) [facility] Lactic Acid Level (mmol/L) 0.9 0.4 - 2.0 mmol/L 06/28/2024 6:03 PM EDT [facility] Comment:If a Lactic Acid Lev el with Reflex if Indicated result is greater than 2.0, a Lactic Acid Level will be ordered to be collected 2 hours after the original collection time. Blood Venipuncture / Unknown 06/28/2024 5:32 PM EDT 06/28/2024 5:37 PM EDT Melvin Yee APRN LAB BLOOD ORDERABLES Final Result Performing Organization Address City/[facility]/ZIP Co de Phone Number [facility] [address] [place] [address] * (ABNORMAL) Comprehensive metabolic panel (06/28/2024 5:32 PM EDT) Sodium 139 136 - 145 meq/L 06/28/2024 6:08 PM EDT [facility] Potassium 4.6 3.5 - 5.1 meq/L 06/28/2024 6:08 PM EDT [facility] Chloride 106 98 - 107 meq/L 06/28/2024 6:08 PM EDT [facility] CO2 25 21 - 32 meq/L 06/28/2024 6:08 PM EDT [facility] Calcium 9.0 8.5 - 10.1 mg/dL 06/28/2024 6:08 PM EDT [facility] Glucose 90 70 - 99 mg/dL 06/28/2024 6:08 PM EDT [facility] BUN 14 7 - 18 mg/dL 06/28/2024 6:08 PM EDT [facility] Creatinine 0.87 0.55 - 1.10 mg/dL 06/28/2024 6:08 PM EDT [facility] BUN/Creatinine 16 06/28/2024 6:08 PM EDT [facility] Albumin 3.1(L) 3.4 - 5.0 g/dL 06/28/2024 6:08 PM EDT [facility] Alkaline Phosphatase 102 46 - 116 U/L 06/28/2024 6:08 PM EDT [facility] ALT 32 12 - 78 U/L 06/28/2024 6:08 PM EDT [facility] AST 42(H) 15 - 37 U/L 06/28/2024 6:08 PM EDT [facility] Total Bilirubin 0.7 0.2 - 1.0 mg/dL 06/28/2024 6:08 PM EDT [facility] Protein, Total 7.3 6.4 - 8.2 gm/dL 06/28/2024 6:08 PM EDT [facility] Anion Gap 13 11 - 22 06/28/2024 6:08 PM EDT [facility] A/G Ratio 0.7 06/28/2024 6:08 PM EDT [facility] Globulin 4.2 g/dL 06/28/2024 6:08 PM EDT [facility] Osmolality Calc 277.5 mOsm/kg 6:08 PM EDT [facility] eGFR (mL/min/1.73m2) >60 >=60 mL/min/1.7 3m2 06/28/2024 6:08 PM EDT [facility] Comment:ESTIMATED GFR IS NOT ACCURATE CREATININE CLEARANCE IN PREDICTING GLOMERULAR FILTRATION RATE. ESTIMATED GFR IS NOT APPLICABLE FOR DIALYSIS PATIENTS. Blood Venipuncture / Unknown 06/28/2024 5:32 PM EDT 06/28/2024 5:37 PM EDT Melvin Yee HEMATOLOGY NURSE EDUCATOR LAB BLOOD ORDERABLES Final Result Performing Organization Address City/State/[facility] Co de Phone Number [facility] [address] [place] [address] * (ABNORMAL) CBC with Auto Diff (06/28/2024 5:32 PM EDT) WBC 8.3 4.8 - 10.8 K/ L 06/28/2024 5:41 PM EDT [facility] RBC 3.88 3.50 - 5.20 M/ L 06/28/2024 5:41 PM EDT [facility] Hemoglobin 11.8 11.7 - 15.8 GM/DL 06/28/2024 5:41 PM EDT [facility] Hematocrit 35.1 35.0 - 47.0 % 06/28/2024 5:41 PM EDT [facility] MCV 91 81 - 101 fL 06/28/2024 5:41 PM EDT [facility] MCH 30.4 27.0 - 34.0 pg 06/28/2024 5:41 PM EDT [facility] MCHC 33.6 32.0 - 36.0 GM/DL 06/28/2024 5:41 PM EDT [facility] RDW 12.5 11.5 - 14.5 % 06/28/2024 5:41 PM EDT [facility] Platelets 365 150 - 400 K/CU MM 06/28/2024 5:41 PM EDT [facility] MPV 9.6 9.4 - 12.4 fL 06/28/2024 5:41 PM EDT [facility] Nucleated Red Blood Cell 0.0 0 - 0.2 % 06/28/2024 5:41 PM EDT [facility] % Neutros 57 37 - 80 % 06/28/2024 5:41 PM EDT [facility] % Lymphs 29 10 - 50 % 06/28/2024 5:41 PM EDT [facility] % Monos 8 5 - 13 % 06/28/2024 5:41 PM EDT [facility] % Eos 6 0 - 7 % 06/28/2024 5:41 PM EDT [facility] % Baso 1 0 - 3 % 06/28/2024 5:41 PM EDT [facility] NRBC Absolute <0.01 0 - 0.012 K/ul 06/28/2024 5:41 PM EDT [facility] # Neutros 4.68 2.00 - 6.90 K/ L 06/28/2024 5:41 PM EDT [facility] # Lymphs 2.37 0.60 - 3.40 K/ L 06/28/2024 5:41 PM EDT [facility] # Monos 0.62 0.00 - 0.90 K/ L 06/28/2024 5:41 PM EDT [facility] # Eos 0.48 0.00 - 0.70 K/ L 06/28/2024 5:41 PM EDT [facility] # Baso 0.05 0.00 - 0.20 K/ L 06/28/2024 5:41 PM EDT [facility] Immature Granulocytes-Re lative 1.00 % 06/28/2024 5:41 PM EDT [facility] # IG 0.08(H) 0.00 - 0.00 K/uL 06/28/2024 5:41 PM EDT [facility] Blood Venipuncture / Unknown 06/28/2024 5:32 PM EDT 06/28/2024 5:37 PM EDT Narrative [facility] - 06/28/2024 5:41 PM EDT When CBC w/ Auto Diff is ordered the lab will add a Manual Differential as a quality check at no additional charge if: Lymphocytes greater than seventy five percent with normal or increased WBC Monocytes greater than Fifteen percent Basophil greater than four percent Bands >10% or several immature myeloids are seen on scan Blast? Flag noted Atypical Lymph flag noted us Melvin Yee HEMATOLOGY NURSE EDUCATOR LAB BLOOD ORDERABLES Final Result [facility] [address] [place] [address] documented in this encounter Visit Diagnoses Diagnosis Acute pain of left knee- Primary documented in this encounter Administered Medications Inactive Administered Medications - up to 3 most recent administrations Medication Order MAR Action Action Date Dose Rate Site morphine injection 4 mg 4 mg Once, intravenous, On Fri06/28/24 at 1730, For 1 dose Given 06/28/2024 5:35 PM EDT 4 mg ondansetron (ZOFRAN) injection 4 mg 4 mg Once, intravenous, On Fri06/28/24 at 1730, For 1 dose, For IV push, give over 2 - 5 minutes. Given 06/28/2024 5:35 PM EDT 4 mg documented in this encounter Active and Recently Administered Medications Times are shown in EDT. Scheduled Medication Order 06/26/2024 06/27/2024 06/28/2024 morphine injection 4 mg (COMPLETED) 4 mg Once, intravenous, On Fri06/28/24 at 1730, For 1 dose 1735 (Given - Provid er: Joseph Miguel) ondansetron (ZOFRAN) injection 4 mg (COMPLETED) 4 mg Once, intravenous, On Fri06/28/24 at 1730, For 1 dose, For IV push, give over 2 - 5 minutes. 1735 (Given - Provid er: Joseph Miguel) documented in this encounter Care Teams As[employer] Bra[employer] Lining Finisher Helper Relationship Specialty Start Date End Date Gurjit Mena MD [address] [place] [address] PCP - General Family Medicine 06/17/24 documented as of this encounter
--- OUTSIDE RECORDS SUMMARY | 2024-07-02 10:30 | XMS_ITS | Encounter Summary ---
Author Organization [facility] [employer] Address [address] [place] [address] Care Team Providers Care Bay Stocker Name Role Phone Gurjit Mena MD Primary Care Provider [phone] Fausto Nieves MD Unavailable [phone] Reason for Visit * Reason Comments S/p LTKA 06/21/24 Encounter Details Date Type Department Care Team (Late st Contact Info) Description 07/02/2024 10:30 AM EDT Office Visit [facility] Orthopedics - [address] [phone] Ermias Obando PA-C [address] [place] [address] S/P total knee arthroplasty, left DOS [...] Do you speak a language other than Croatian at [facility]? No 06/21/2024 Do you want help with [...] not included. NAME: Ran Stonerholli Ayala CSN: [id number] : 1975 PCP: Gurjit Mena MD REASON [...] She reports that she sought treatment at [facility] two days ago and they culturedher knee. [...] KNEE, ROBOT-ASSISTED; Surgeon: Fausto Nieves MD; Location: [facility]; Service: Orthopedic Surgery; Laterality: [...] Info) Description 07/28/2024 10:15 AM EDT Treatment [facility] OP Physical Therapy [address] [place] [phone] Du You, SURJIT 07/30/2024 10:15 AM EDT Treatment [facility] OP Physical Therapy [address] [place] [phone] Du You, SURJIT 09/07/2024 10:00 AM EDT Office Visit [facility] Orthopedics - [address] [phone] Fausto Nieves MD [address] [place] [address] documented as of this encounter Visit Diagnoses Diagnosis S/P total knee arthroplasty, left DOS 06/21/2024 documented in this encounter Care Teams Bay Stocker Relationship Specialty Start Date End Date Gurjit Mena MD [address] [facility] [address] [place] [address] PCP - General Family Medicine 06/17/24 Fausto Nieves MD [address] [place] [address] Orthopedic Surgery 06/30/24 documented as of this encounter
--- OUTSIDE RECORDS SUMMARY | 2024-07-06 09:00 | XMS_ITS | Encounter Summary ---
Author Organization [employer] Address [address] [place] [address] Care Team Providers Care Checkering Machine Operator Name Role Phone Gurjit Mena MD Primary Care Provider [phone] Fausto Nieves MD Unavailable [phone] Reason for Visit * Consultation (Routine) - Authorized Specialty Diagnoses / Procedures Referred By William mata Referred To Contact Physical Therapy Diagnoses Status post left knee replacement Fausto Nieves MD [address] [place] [address] Phone: tel: fax: Referral ID Status Reason Start Date Expiration Date Visits Requested Visits Authorized [id number] Authorized Specialty Services Required 06/21/2024 08/20/2024 15 15 Encounter Details Date Type Department Care Team (Late st Contact Info) Description 07/06/2024 9:00 AM EDT Treatment [facility] OP Physical Therapy [address] [place] [phone] Fausto Nieves MD [address] [place] [address] Du You, SURJIT Status post left [...] your living situation today? I have a [facility] place to live 06/21/2024 Think about the [...] Isolated 0 06/21 Educational Attainment Answer Date Dariran rded Do you speak a language other than Salvadorean at [facility]? No 06/21/2024 Do you want help [...] this encounter Progress Notes * Du You, SUJRIT - 07/06/2024 9:00 AM EDT Images from [...] less pain by end of session to /. Therex completed with mild difficulty resulting in rest periods throughout session as needed. Will continue to progress patient as she can tolerate. Skilled PT services required to return patient to premorbid level of function. PLAN Interventions: Continue Therapeutic Exercise (46989), Therapeutic Activity (38858), Gait Training (63036), and Manual Therapy (87413) Prognosis: Good Patient requires follow-up: Yes Total Treatment (min): 55' Timed Treatment (min): Therapeutic Exercise (82374) 47 minutes Manual Therapy (15498) 08 minutes Electronically signed: Du You PTA 07/06/2024, 9:41 AM documented in this encounter Plan of Treatment Upcoming Encounters Date Type Department Care Team (Late st Contact Info) Description 07/28/2024 10:15 AM EDT Treatment [facility] Physical Therapy [address] [place] [phone] Du You, HUMAN RESOURCE STATISTICIAN 07/30/2024 10:15 AM EDT Treatment [facility] OP Physical Therapy [address] [place] [phone] Du You, HUMAN RESOURCE STATISTICIAN 09/07/2024 10:00 AM EDT Office Visit [facility] Orthopedics - [address] [phone] Fausto Nieves MD [address] [place] [address] documented as of this encounter Visit Diagnoses Diagnosis Status post left knee replacement with ANNA documented in this encounter Care Teams Checkering Machine Operator Relationship Specialty Start Date End Date Gurjit Mena MD [address] [place] [address] PCP - General Family Medicine 06/17/24 Fausto Nieves MD [address] [place] [address] Orthopedic Surgery 06/30/24 documented as of this encounter
--- OUTSIDE RECORDS SUMMARY | 2024-07-06 10:00 | XMS_ITS | Encounter Summary ---
Author Organization [email or web address] Address [address] [place] [address] Care Team Providers Care Riffler Tender Name Role Phone Gurjit Mena MD Primary Care Provider [phone] Fausto Nieves MD Unavailable [phone] Reason for Visit * Reason Comments Post-Op Follow-up zoe ALBA/ ANNA, DOS: 06/21/24 Encounter Details Date Type Department Care Team (Late st Contact Info) Description 07/06/2024 10:00 AM EDT Office Visit [facility] Orthopedics - [address] [address] Fausto Nieves MD [address] [place] [address] S/P total knee arthroplasty, left (Primary [...] Do you speak a language other than Luxembourger at ho me? No 06/21/2024 Do you [...] 10:00 AM EDT NAME: Ran Ayala CSN: [id number] : 1975 PCP: Gurjit Mena MD REASON FOR VISIT Post-Op Follow-up ( zoe ALBA/ ANNA, DOS: 06/21/24) Is this Worker's Comp? No HPI Ran Ayala is a 48 y.o. female Established patient [...] KNEE, ROBOT-ASSISTED; Surgeon: Fausto Nieves MD; Location: [facility]; Service: Orthopedic Surgery; Laterality: Left; SOCIAL HISTORY [...] Info) Description 07/28/2024 10:15 AM EDT Treatment [facility] OP Physical Therapy [address] [place] [phone] Du You PTA 07/30/2024 10:15 AM EDT Treatment [facility] OP Physical Therapy [address] [place] [phone] Du You, BEAD PREPARER 09/07/2024 10:00 AM EDT Office Visit [facility] Orthopedics - [address] [phone] Fausto Nieves MD [address] [place] [address] documented as of this encounter Procedures Procedure [...] Primary documented in this encounter Care Teams Riffler Tender Relationship Specialty Start Date End Date Gurjit Mena MD [address] [place] [address] [place] [address] PCP - General Family Medicine 06/17/24 Fausto Nieves MD [address] [place] [address] Orthopedic Surgery 06/30/24 documented as of this encounter
--- OUTSIDE RECORDS SUMMARY | 2024-07-06 10:05 | XMS_ITS | Encounter Summary ---
Author Organization [employer] Address [address] [place] [address] Care Team Providers Care Sales Receptionist Name Role Phone Gurjit Mena MD Primary Care Provider [phone]- [phone] Fausto Nieves MD Unavailable [phone] Encounter Details Date Type Department Care Team (Late st Contact Info) Description 07/06/2024 10:05 AM EDT Ancillary Procedure [facility] Orthopedics - [address] [address] Fausto Nieves MD [address] [place] [address] Social History Tobacco Use Types Packs/Day [...] Do you speak a language other than Kuwaiti at [facility]? No 06/21/2024 Do you want help with [...] Info) Description 07/28/2024 10:15 AM EDT Treatment [facility] OP Physical Therapy [address] [place] [phone] Du You, SURJIT 07/30/2024 10:15 AM EDT Treatment [facility] OP Physical Therapy [address] [place] [phone] Du You, SURJIT 09/07/2024 10:00 AM EDT Office Visit [facility] Orthopedics - [address] [phone] Fausto Nieves MD [address] [place] [address] documented as of this encounter Procedures Procedure [...] on filedocumented in this encounter Care Teams Sales Receptionist Relationship Specialty Start Date End Date Gurjit Mena MD [address] [place] [facility] [address] [place] [address] PCP - General Family Medicine 06/17/24 Fausto Nieves MD [address] [place] [address] Orthopedic Surgery 06/30/24 documented as of this encounter
--- OUTSIDE RECORDS SUMMARY | 2024-07-13 10:15 | XMS_ITS | Encounter Summary ---
Author Organization [employer] Address [address] [place] [address] Care Team Providers Care Coating Line Worker Name Role Phone Gurjit Mena MD Primary Care Provider [phone] Fausto Nieves MD Unavailable [phone] Reason for Visit * Consultation (Routine) - Authorized Specialty Diagnoses / Procedures Referred By William mata Referred To Contact Physical Therapy Diagnoses Status post left knee replacement Fausto Nieves MD [address] [place] [address] Phone: tel: fax: Referral ID Status Reason Start Date Expiration Date Visits Requested Visits Authorized [id number] Authorized Specialty Services Required 06/21/2024 08/20/2024 15 15 Encounter Details Date Type Department Care Team (Late st Contact Info) Description 07/13/2024 10:15 AM EDT Treatment [facility] OP Physical Therapy [address] [place] [phone] Murali Bear, PT Status post left knee [...] Do you speak a language other than [place] at [facility] [place]? No 06/21/2024 Do you [...] overall function. PLAN Interventions: Continue Therapeutic Exercise (80409), Therapeutic Activity (74744), Gait Training (12742), and Manual Therapy (28954) Prognosis: Good Patient requires follow-up: Yes Total Treatment (min): 45' Timed Treatment (min): Therapeutic Exercise (65904) 37 minutes Manual Therapy (51673) 8 minutes Electronically signed: Murali Bear PT 07/13/2024, 12:17 PM documented in this encounter Plan of Treatment Upcoming Encounters Date Type Department Care Team (Late st Contact Info) Description 07/28/2024 10:15 AM EDT Treatment [facility] OP Physical Therapy [address] [place] [phone] Du You, SURJIT 07/30/2024 10:15 AM EDT Treatment [facility] OP Physical Therapy [address] [place] [phone] Du You, BINDER AND WRAPPER PACKER 09/07/2024 10:00 AM EDT Office Visit [facility] Orthopedics - [address] [phone] Fausto Nieves MD [address] [place] [address] documented as of this encounter Visit Diagnoses Diagnosis Status post left knee replacement with ANNA- Primary documented in this encounter Care Teams Coating Line Worker Relationship Specialty Start Date End Date Gurjit Mena MD [address] [facility] [address] [place] [address] PCP - General Family Medicine 06/17/24 Fausto Nieves MD [address] [place] [address] Orthopedic Surgery 06/30/24 documented as of this encounter
--- OUTSIDE RECORDS SUMMARY | 2024-07-15 20:48 | XMS_ITS | Encounter Summary ---
Author Organization [employer] Address [address] [place] [address] Care Team Providers Care Fabric Cutter Name Role Phone Gurjit Mena MD Primary Care Provider [phone]- [phone] Fausto Nieves MD Unavailable Reason for Visit * Reason Comments Nausea Patient states she h as been nauseous x2 hours and had a bowel movement with blood in it about an hour ago Encounter Details Date Type Department Care Team (Late st Contact Info) Description 07/15/2024 8:48 PM EDT - 07/15/2024 11:00 PM EDT Emergency [facility] Emergency Department [address] [place] [phone] Patti English MD [address] [place] [address] Nausea with vomiting (Primary Dx); Diarrhea; Viral [...] Do you speak a language other than Argentine at ho me? No 06/21/2024 Do you [...] Care Everywhere. * Nausea and Vomiting Adult (Argentine) * Diarrhea Adult [place] (Argentine) * Viral Illness Adult (Argentine) documented in this encounter Medications at Time [...] KNEE, ROBOT-ASSISTED; Surgeon: Fausto Nieves MD; Location: [facility]; Service: Orthopedic Surgery; Laterality: Left; Family [...] Color, UA Straw Clarity, UA Clear Specific Malcolm, UA 1.020 1.002 - 1.030 pH, UA [...] to 7 days. Contact information for follow-up Gurjit Mena MD Specialty: Family Medicine Relationship: PCP - General [address] [place] [address] [address] Next Steps: Call in 1 day(s) Instructions: Please call your PCP and follow-up appropriately Electronically Signed By Patti English MD 07/15/24 9340 documented in this encounter Plan of Treatment Upcoming Encounters Date Type Department Care Team (Late st Contact Info) Description 07/28/2024 10:15 AM EDT Treatment [facility] OP Physical Therapy [address] [place] [phone] Du You, REPAIR SERVICE CLERK 07/30/2024 10:15 AM EDT Treatment [facility] OP Physical Therapy [address] [place] [phone] Du You, REPAIR SERVICE CLERK 09/07/2024 10:00 AM EDT Office Visit [facility] Orthopedics - [address] [phone] Fausto Nieves MD [address] [place] [address] documented as of this encounter Procedures Procedure [...] Color, UA Straw 07/15/2024 10:39 PM EDT [facility] Clarity, UA Clear 07/15/2024 10:39 PM EDT [facility] Specific Malcolm, UA 1.020 1.002 - 1.030 07/15/2024 10:39 PM EDT [facility] pH, UA 6.0 5.0 - 9.0 07/15/2024 10:39 PM EDT [facility] Leukocytes, UA Negative Negative 07/15/2024 10:39 PM EDT [facility] Nitrite, UA Negative Negative 07/15/2024 10:39 PM EDT [facility] Protein, UA Negative Negative 07/15/2024 10:39 PM EDT [facility] Glucose, UA Negative Negative 07/15/2024 10:39 PM EDT [facility] Ketones, UA Negative Negative 07/15/2024 10:39 PM EDT [facility] Bilirubin, UA Negative Negative 07/15/2024 10:39 PM EDT [facility] Blood, UA Negative Negative 07/15/2024 10:39 PM EDT [facility] Urobilinogen, UA 0.2 mg/dL Normal 07/15/2024 10:39 PM EDT [facility] Specimen Source Urine, Clean Catch 07/15/2024 10:39 PM EDT [facility] Urine URINE SPECIMEN COLLECTION, CLEAN CATCH / Unknown 07/15/2024 10:18 PM EDT 07/15/2024 10:25 PM EDT Patti English MD URINE ORDERABLES Final Result Performing Organization Address City/[facility]/ZIP Co de Phone Number [facility] [address] [place] [address] * Lipase (07/15/2024 9:21 PM EDT) Lipase 18 16 - 77 U/L 07/15/2024 9:55 PM EDT [facility] Blood Venipuncture / Unknown 07/15/2024 9:21 PM EDT 07/15/2024 9:31 PM EDT Patti English MD LAB BLOOD ORDERABLES Final Resu lt [facility] [address] [place] [address] * (ABNORMAL) Hepatic function panel (07/15/2024 9:21 PM EDT) Protein, Total 7.4 6.4 - 8.2 gm/dL 07/15/2024 9:55 PM EDT [facility] Albumin 3.5 3.4 - 5.0 g/dL 07/15/2024 9:55 PM EDT [facility] Total Bilirubin 0.3 0.2 - 1.0 mg/dL 07/15/2024 9:55 PM EDT [facility] Bilirubin, Direct 0.1 0.1 - 0.2 mg/dL 07/15/2024 9:55 PM T [facility] Alkaline Phosphatase 128(H) 46 - 116 U/L 07/15/2024 9:55 PM EDT [facility] Globulin 3.9 g/dL 07/15/2024 9:55 PM [facility] A/G Ratio 0.9 07/15/2024 9:55 PM T [facility] AST 20 15 - 37 U/L 07/15/2024 9:55 PM T [facility] Comment:[employer] has become aware of sulfasalazine and sulfapyridine [...] - 78 U/L 07/15/2024 9:55 PM EDT [facility] Comment:[employer] has become aware of sulfasalazine and sulfapyridine [...] MD LAB BLOOD ORDERABLES Final Resu lt [facility] [address] [place] [address], [facility] [phone] * (ABNORMAL) Basic Metabolic Panel (07/15/2024 9:21 PM EDT) Sodium 135(L) 136 - 145 meq/L 07/15/2024 9:55 PM EDT [facility] Potassium 3.7 3.5 - 5.1 meq/L 07/15/2024 9:55 PM EDT [facility] Chloride 103 98 - 107 meq/L 07/15/2024 9:55 PM EDT [facility] CO2 26 21 - 32 meq/L 07/15/2024 9:55 PM EDT [facility] Anion Gap 10(L) 11 - 22 07/15/2024 9:55 PM EDT [facility] BUN 8 7 - 18 mg/dL 07/15/2024 9:55 PM EDT [facility] Creatinine 1.01 0.55 - 1.10 mg/dL 07/15/2024 9:55 PM EDT [facility] BUN/Creatinine 8 07/15/2024 9:55 PM EDT [facility] Glucose 113(H) 70 - 99 mg/dL 07/15/2024 9:55 PM EDT [facility] Calcium 8.9 8.5 - 10.1 mg/dL 07/15/2024 9:55 PM EDT [facility] Osmolality Calc 269.2 mOsm/kg 9:55 PM EDT [facility] eGFR (mL/min/1.73m2) >60 >=60 mL/min/1.7 3m2 07/15/2024 9:55 PM EDT [facility] Comment:eGFR of <60 suggests chronic kidney disease if found over a 3 month period of time. eGFR <15 indicates renal failure. Blood Venipuncture / Unknown 07/15/2024 9:21 PM EDT 07/15/2024 9:31 PM EDT us Patti English MD LAB BLOOD ORDERABLES Final Resu lt [facility] [address] [place], [place] [address] [phone] * (ABNORMAL) CBC with Auto Diff (07/15/2024 9:21 PM EDT) WBC 8.1 4.8 - 10.8 K/ L 07/15/2024 9:33 PM EDT [facility] RBC 4.14 3.50 - 5.20 M/ L 07/15/2024 9:33 PM EDT [facility] Hemoglobin 12.8 11.7 - 15.8 GM/DL 07/15/2024 9:33 PM EDT [facility] Hematocrit 38.1 35.0 - 47.0 % 07/15/2024 9:33 PM EDT [facility] MCV 92 81 - 101 fL 07/15/2024 9:33 PM EDT [facility] MCH 30.9 27.0 - 34.0 pg 07/15/2024 9:33 PM EDT [facility] MCHC 33.6 32.0 - 36.0 GM/DL 07/15/2024 9:33 PM EDT [facility] RDW 12.5 11.5 - 14.5 % 07/15/2024 9:33 PM EDT [facility] Platelets 323 150 - 400 K/CU MM 07/15/2024 9:33 PM EDT [facility] MPV 10.6 9.4 - 12.4 fL 07/15/2024 9:33 PM EDT [facility] Nucleated Red Blood Cell 0.0 0 - 0.2 % 07/15/2024 9:33 PM EDT [facility] % Neutros 54 37 - 80 % 07/15/2024 9:33 PM EDT [facility] % Lymphs 33 10 - 50 % 07/15/2024 9:33 PM EDT [facility] % Monos 7 5 - 13 % 07/15/2024 9:33 PM EDT [facility] % Eos 5 0 - 7 % 07/15/2024 9:33 PM EDT [facility] % Baso 1 0 - 3 % 07/15/2024 9:33 PM EDT [facility] NRBC Absolute <0.01 0 - 0.012 K/ul 07/15/2024 9:33 PM EDT [facility] # Neutros 4.39 2.00 - 6.90 K/ L 07/15/2024 9:33 PM EDT [facility] # Lymphs 2.70 0.60 - 3.40 K/ L 07/15/2024 9:33 PM EDT [facility] # Monos 0.53 0.00 - 0.90 K/ L 07/15/2024 9:33 PM EDT [facility] # Eos 0.42 0.00 - 0.70 K/ L 07/15/2024 9:33 PM EDT [facility] # Baso 0.04 0.00 - 0.20 K/ L 07/15/2024 9:33 PM EDT [facility] Immature Granulocytes-Re lative 0.40 % 07/15/2024 9:33 PM EDT [facility] # IG 0.03(H) 0.00 - 0.00 K/uL 07/15/2024 9:33 PM EDT [facility] Blood Venipuncture / Unknown 07/15/2024 9:21 PM EDT 07/15/2024 9:31 PM EDT Narrative [facility] - 07/15/2024 9:33 PM EDT When [...] BLOOD ORDERABLES Final Resu lt [facility] [address] [id number], [facility] [phone] documented in this encounter Visit Diagnoses Diagnosis [...] RN) documented in this encounter Care Teams Fabric Cutter Relationship Specialty Start Date End Date Gurjit Mena MD [address] [place] [address] PCP - General Family Medicine 06/17/24 Fausto Nieves MD [address] [place] [address] Orthopedic Surgery 06/30/24 documented as of this encounter
--- OUTSIDE RECORDS SUMMARY | 2024-07-20 09:30 | XMS_ITS | Encounter Summary ---
Author Organization [employer] Address [address] [place] [address] Care Team Providers Care Baseball Inspector Name Role Phone Gurjit Mena MD Primary Care Provider [phone]- [phone] Fausto Nieves MD Unavailable [phone] Reason for Visit * Consultation (Routine) - Authorized Specialty Diagnoses / Procedures Referred By William mata Referred To Contact Physical Therapy Diagnoses Status post left knee replacement Fausto Nieves MD [address] [place] [address] Phone: tel: fax: Referral ID Status Reason Start Date Expiration Date Visits Requested Visits Authorized [id number] Authorized Specialty Services Required 06/21/2024 08/20/2024 15 15 Encounter Details Date Type Department Care Team (Late st Contact Info) Description 07/20/2024 9:30 AM EDT Treatment [facility] OP Physical Therapy [address] [place] [phone] Murali Bear, PT Status post left knee [...] Do you speak a language other than Libyan at ho me? No 06/21/2024 Do you [...] Progress Notes * Murali Bear, PT - 07/20/2024 9:30 AM EDT Images from the original note were not included. Outpatient Physical Therapy Treatment Note 07/20/2024 Time In: 09 Time Out: [address] Lucy 1975 48 y.o. 1. Status post left knee replacement with ANNA Referring Physician: Fausto Nieves MD Insurance: Payor: MEDICAID - MEDICAID [place]GD CARE / Plan: HUMANA MEDICAID / Product Type: *No Product type* / Visit # / Total Visits: SUBJECTIVE Patient reports she has some soreness today after doing some yard work this weekend. Pain: 2/10 OBJECTIVE INTERVENTIONS Therapeutic Exercise Sets x Repetitions Weight/Resistance Cues/Comments HEP Bike 5 minutes Fwd step ups 3 x 10 4 inches Shuttle press 3 x 10 5 c / 3 c Heel Prop 5 min [x] Heel Slides 3'/2' [x] Quad Sets 3 x 10 Not today [x] Incline box stretch 5 x 15 sec [x] Hamstring Stretch 5 x 15 sec [x] LAQs 3 x 10 Not today [] SAQs 3 x 10 SLR's 3 x 10 [] Heel Raises 2 x [address] 2 x 10 ea Not today TKEs 2 x 10 RTB Hamstring Curls 2 x 10 Manual Therapy Patient seated EOB for PROM to left knee for flexion/extension x 8 minutes ASSESSMENT Patient completed exercises to improve L knee mobility and strength. Therex was progressed by increasing repetitions for the shuttle for improved LE strength. Tband hamstring curls and TKEs were added this date to improve quad and hamstring strength. Manual therapy was performed at the end of the session per patient tolerance to improve her L knee mobility. Will continue to progress as tolerated.Patient will continue to benefit from skilled physical therapy services to return to premorbid mobility, strength and overall function. PLAN Interventions: Continue Therapeutic Exercise (32787), Therapeutic Activity (31173), Gait Training (55967), and Manual Therapy (68452) Prognosis: Good Patient requires follow-up: Yes Total Treatment (min): 49' Timed Treatment (min): Therapeutic Exercise (46361) 40 minutes Manual Therapy (56980) 8 minutes Electronically signed: Murali Bear PT 07/20/2024, 10:21 AM documented in this encounter Plan of Treatment Upcoming Encounters Date Type Department Care Team (Late st Contact Info) Description 07/28/2024 10:15 AM EDT Treatment [facility] OP Physical Therapy [address] [place] [phone] Du You, SURJIT 07/30/2024 10:15 AM EDT Treatment [facility] OP Physical Therapy [address] [place] [phone] Du You PTA 09/07/2024 10:00 AM EDT Office Visit [facility] Orthopedics - [address] [phone] Fausto Nieves MD [address] [place] [address] documented as of this encounter Visit Diagnoses Diagnosis Status post left knee replacement with ANNA- Primary documented in this encounter Care Teams Baseball Inspector Relationship Specialty Start Date End Date Gurjit Mena MD [address] [facility] [address] [place] [address] PCP - General Family Medicine 06/17/24 Fausto Nieves MD [address] [place] [address] Orthopedic Surgery 06/30/24 documented as of this encounter
--- OUTSIDE RECORDS SUMMARY | 2024-07-27 13:12 | XMS_ITS | Clinical Summary ---
Author Organization [facility] Address [address] [place] [address] Phone Care Team Providers Care Property Worker Name Role Phone Unavailable Unavailable Conditions or Problems No information available. Medications No information available. Medications Administered No information available. Allergies, Adverse Reactions, Alerts No information available. Results No information available. Plan of Care No information available. Procedures No information available. Vital Signs No information available. Immunizations No information available. Advance Directives No information available.
--- OUTSIDE RECORDS SUMMARY | 2024-07-27 13:12 | XMS_ITS | Encounter Summary ---
Author Organization [employer] Address [address] [place] [address] Care Team Providers Care Turn Laster Name Role Phone Marlo Leonardo Primary Care Provider [phone] Gurjit Mena MD Primary Care Provider [phone] Fausto Nieves MD Unavailable [phone] Reason for Referral * Consultation (Routine) - Closed Specialty Diagnoses / Procedures Referred By William mata Referred To Contact Physical Therapy Diagnoses Other tear of medial meniscus of left knee as current injury, subsequent encounter Cesar Ellis MD [address] [phone] Phone: tel: fax: Referral ID Status Reason Start Date Expiration Date V isits Requested Visits Authorized [id number] Closed Specialty Services Required 08/19/2023 02/17/2024 20 20 Encounter Details Date Type Department Care Team (Late st Contact Info) Description 08/19/2023 Outside Orders [facility] OP Physical Therapy [address] [place] [phone] Cesar Ellis MD [address] [place] [address] Other tear of medial meniscus of left knee as current injury, subsequent encounter (Primary Dx) Social History Tobacco Use Types [...] Date Darrian rded Speak language other than Wallisian at home Not on file 03/01/2023 Want [...] Info) Description 07/28/2024 10:15 AM EDT Treatment [facility] OP Physical Therapy [address] [place] [phone] Du You, SURJIT 07/30/2024 10:15 AM EDT Treatment [facility] OP Physical Therapy [address] [place] [phone] Du You, SURJIT 09/07/2024 10:00 AM EDT Office Visit [facility] Orthopedics - [address] [phone] Fausto Nieves MD [place] [address] Scheduled Referrals Name Type Priority Associated Diagnoses Orde r Schedule AMB REFERRAL TO PHYSICAL THERAPY EVALUATE, TREAT AND PLAN OF CARE Outpatient Referral Routine Other tear of medial meniscus of left knee as current injury, subsequent encounter Expected: 08/19/2023, Expires: 08/18/2024 documented as of this encounter Visit Diagnoses Diagnosis Other tear of medial meniscus of left knee as current injury, subsequent encounter- Primary documented in this encounter Care Teams Turn Laster Relationship Specialty Start Date End Date Marlo Leonardo [address] [place] [address] PCP - General 12/20/22 06/16/24 Gurjit Mena MD [address] [facility] [address] [place] [address] PCP - General Family Medicine 06/17/24 Fausto Nieves MD [address] [place] [address] Orthopedic Surgery 06/30/24 documented as of this encounter
--- OUTSIDE RECORDS SUMMARY | 2024-07-27 13:12 | XMS_ITS | Encounter Summary ---
Author Organization [employer] Address [address] [place] [address] Care Team Providers Care Fiberglass Boat Parts Finisher Name Role Phone Marlo Leonardo Primary Care Provider [phone] Gurjit Mena MD Primary Care Provider [phone] Fausto Nieves MD Unavailable [phone] Reason for Referral * Consultation (Routine) - Closed Specialty Diagnoses / Procedures Referred By William mata Referred To Contact Neurology Diagnoses Syncope and collapse Colette Gall[address] [place] [address] Phone: tel: Krupa Ward MD [address] [facility] [address] [place] [address] Phone: tel: fax: Referral ID Status Reason Start Date Expiration Date V isits Requested Visits Authorized [id number] Closed Specialty Services Required 12/19/2023 12/18/2024 1 1 Encounter Details Date Type Department Care Team (Late st Contact Info) Description 12/19/2023 Outside Orders [facility] Neurology [address] [facility] [address] [place] [address] Colette Gallardo Maria De [address] [place] [address] Syncope and collapse (Primary Dx) Social History Tobacco Use Types [...] Date Darrian rded Speak language other than Cape Verdean at home Not on file 03/01/2023 Want [...] 07/28/2024 10:15 AM EDT Treatment [facility] OP Physical Therapy [address] [place] [phone] Du You, BURRER MACHINE 07/30/2024 10:15 AM EDT Treatment [facility] OP Physical Therapy [address] [place] [phone] Du You, BURRER MACHINE 09/07/2024 10:00 AM EDT Office Visit [facility] Orthopedics - [address] [phone] Fausto Nieves MD [address] [place] [address] Scheduled Referrals Name Type Priority Associated Diagnoses Order Schedule Ambulatory referral to Neurology Outpatient Referral Routine Syncope and collapse Ordered: 12/19/2023 documented as of this encounter Visit Diagnoses Diagnosis Syncope and collapse- Primary documented in this encounter Care Teams Fiberglass Boat Parts Finisher Relationship Specialty Start Date End Date aMrlo Leonardo [address] [place] [address] [place] [address] PCP - General 12/20/22 06/16/24 Gurjit Mena MD [address] [facility] [address] [place] [address] PCP - General Family Medicine 06/17/24 Fausto Nieves MD [address] [place] [address] Orthopedic Surgery 06/30/24 documented as of this encounter
--- OUTSIDE RECORDS SUMMARY | 2024-07-27 13:12 | XMS_ITS | Clinical Summary ---
Author Organization [facility] Address [address] [address] Phone Care Team Providers Care Commercial Parts Professional Name Role Phone Mandeep Beckham DO Primary Care Provider [phone] Allergies Active Allergy Reactions Criticality Noted Date Comments Adhesive Swelling,Rash 01/14/2023 Medications * This document contains information received from the source organization and may not represent a complete record from that organization. estradiol (ESTRACE) 1 mg Oral Tablet Take 1 mg by mouth nightly. Active multivitamin, stress formula (ALLBEE VIT WITH C & B COMPLEX) Oral Tablet Take 1 Tablet by mouth daily. Active cyanocobalamin 1,000 mcg Oral TabletIndications: Vitamin B12 deficiency Take 1 Tab by mouth daily. 2 12/23/19 20 Active albuterol (PROAIR HFA) 90 mcg/actuation Inhl HFA Aerosol Inhaler Inhale 2 Puffs into the lungs every 6 hours as needed for Wheezing. 1 Each 2 09/11/19 Active fluticasone furoate-vilanteroL (BREO ELLIPTA) 200-25 mcg/dose Inhl Disk with DeviceIndications: Dyspnea on exertion Inhale 1 Puff into the lungs daily. 1 Each 6 10/09/19 22 Active Cholecalciferol, Vitamin D3, 125 mcg (5,000 unit) Oral Tablet Take 1 Capsule by mouth daily. Active omeprazole (PRILOSEC) 40 mg Oral Capsule, Delayed Release(E.C.) Take by mouth daily. Active ipratropium (ATROVENT) 21 mcg (0.03 %) Nasl [place], Non-AerosolIndicat ions:Subacute cough 2 Sprays by Nasal route 3 times daily. 30 mL 2 03/11/19 24 Active famotidine (PEPCID) 40 mg Oral TabletIndications: Gastroesophageal reflux disease with esophagitis without hemorrhage Take 1 Tablet by mouth every evening. 90 Tablet 3 03/11/19 24 Active Additional Information Patient not taking.Reason: Pt electing to not take the medication, Reported on 08/04/2023 diclofenac (VOLTAREN) 75 mg Oral Tablet, Delayed Release (E.C.)Indications: Left knee pain, unspecified chronicity,Patello femoral pain syndrome of left knee,Osteoarthriti s of left patellofemoral joint Take 1 Tablet by mouth 2 times daily. 60 Tablet 04/14/19 24 Active promethazine (PHENERGAN) 25 mg Oral Tablet Take 1 Tablet by mouth every 6 hours as needed for Nausea for up to 20 doses. 20 Tablet 08/04/19 24 Active oxyCODONE (ROXICODONE) 5 mg Oral Tablet Take 1 Tablet by mouth every 4 hours as needed for Major Surgery/Trauma (G89.18) for up to 30 doses. 30 Tablet 08/04/19 24 Active docusate sodium (COLACE) 100 mg Oral Capsule Take one capsule three times a day while on pain meds 90 Capsule 08/04/19 24 Active escitalopram oxalate (LEXAPRO) 10 mg Oral Tablet Take 1 Tablet by mouth daily. 90 Tablet 1 09/01/19 24 Active traZODone (DESYREL) 100 mg Oral Tablet Take 2 Tablets by mouth nightly as needed for Sleep. 180 Tablet 1 09/01/19 24 Active meloxicam (MOBIC) 15 mg Oral TabletIndications: Acute pain of left knee Take 1 Tablet by mouth daily. 30 Tablet 2 09/26/19 24 Active Active Problems Patient Care Coordination No te Formatting of this note migh t be different from the original. [place] ENTAS Controlled report completed 07/05/2022 Informed consent signed 07/05/[id number] Whitaker Controlled Medication Agreement signed 03/11/22 Controlled Medication Consent signed 03/11/22 [place] As expected 03/11/22 Utilization audit completed by Alysha Burciaga on 03/24/2020. Problem Noted Date Diagnosed Date Tear of medial meniscus of left knee, current Osteoarthritis of left patellofemoral joint 06/17 Gastroparesis 05/21/2023 Cubital tunnel syndrome, left 12/04/2022 Regurgitation of food 09/11/2022 Delayed gastric emptying 09/11/2022 Symptomatic bradycardia 08/16/2022 Pure hypercholesterolemia 08/15/2022 Bradycardia 08/15/2022 Goiter 07/12/2022 Sleep apnea treated with con tinuous positive airway pressure (CPAP) 07/03/2022 Nontoxic single thyroid nodule 05/28/2022 Thyroiditis 05/28/2022 Obesity (BMI 30-39.9) 03/28/2022 Vitamin D deficiency 03/28/2022 Erosive gastritis 03/06/2022 Left shoulder pain 01/29/2022 Dyspnea on exertion 09/13/2021 Family history of gastric cancer 09/03/2021 Cubital tunnel syndrome, right 08/13/2021 Essential hypertension 03/21/2021 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 Dumont History of migraine 08/31/2019 Overview (03/28/2022): On topamax and Imitrex PTSD (post-traumatic stress disorder) 04/07/2019 Esophageal dysphagia Epigastric pain Resolved Problems Problem Noted Date Diagnosed Date Resolved Date Screening for colon cancer 03/06/2022 0 03/28/2022 Overview (03/06/2022): Added automatically from request for surgery [id number] Screening for colon cancer 03/06/2022 0 07/03/2022 Overview (05/20/2022): Added automatically from request for surgery [id number] Chondromalacia of left patella 11/24/2020 02/22/2021 Overview (11/24/2020): Added automatically from request for surgery [id number] Patellar tracking disorder of left knee 11/10/2020 02/22/2021 Chondromalacia of right patella 08/10/2020 02/22/2021 Overview (08/10/2020): Added automatically from request for surgery [id number] Swelling of right knee joint 08/10/2020 02/22/2021 Overview (08/10/2020): Added automatically from request for surgery [id number] Patella, chondromalacia, right 08/09/2020 02/22/2021 Effusion of right knee 08/09/202002/22 Maltracking of right patella 08/09/2020 03/28/2022 Class 3 severe obesity witho ut serious comorbidity in adult 04/27/2020 03/28/2022 Chest pain 12/01/2019 06/04/2021 Psoriasis 09/24/2018 03/28/2022 Chronic abdominal pain 12/04/201703/28 History of SC (myocardial infarction) 12/01/2019 Nausea and vomiting 07/04/19 23 Immunizations Immunization Administration Dates Next Due Hepatitis B (Recombinant), Adjuvanted 05/13/2022 ,04/15/2022 Influenza Vaccine Quadrivalent PF 02/22/2021, Moderna SARS-CoV-2 Vaccine 12+ Yrs (Light blue b order) 07/05/2020,05/30/2020 Tdap 04/26/2019 Surgical History Surgery Date Site/Laterality Comments SECTION 1999,1998, 1997 CHOLECYSTECTOMY 02/17/2014 - 02/16/2015 HYSTERECTOMY, TOTAL 07/18/2016 - 08/16/2016 ABDOMINAL ADHESION SURGERY 10/09/2017 UPPER GASTROINTESTINAL ENDOSCOPY 03/16/2020 N/A ESOPHAGOGASTRODUODENOSCOP Y with biopsy; Surgeon: Fidencio Dalton MD; Location: [facility]; Service: Endoscopy KNEE ARTHROSCOPY 08/29/2020 Right Right knee arthroscopic lateral release and arthroscopic chondroplasty patella; Surgeon: Isaias Dumont MD; Location: [facility]; Service: Orthopedics KNEE SURGERY Right KNEE ARTHROSCOPY 12/21/2020 Left LEFT KNEE ARTHROSCOPIC CHONDROPLASTY, ARTHROSCOPIC LATERAL RETINACULAR LENGTHENING; Surgeon: Isaias Dumont MD; Location: [facility]; Service: Orthopedics ULNAR TUNNEL RELEASE 08/29/2021 Arm/Elbow/Right Right Cubital Tunnel Release; Surgeon: Ozzy Concepcion MD; Location: [facility]; Service: Orthopedics CARPAL TUNNEL RELEASE 09/19/2021 Hand/Wrist/Left Left Cubital Tunnel Release and left carpal tunnel release; Surgeon: Ozzy Concepcion MD; Location: [facility]; Service: Orthopedics THYROIDECTOMY 07/12/2022 Right Right Jason Thyroidectomy; Surgeon: Alessandro Faith MD; Location: [facility] MAIN OR; Service: ENT ULNAR TUNNEL RELEASE 12/12/2022 Arm/Elbow/Left Left cubital tunnel release revision and transposition; Surgeon: Ramses Puentes MD; Location: [facility] OR; Service: Orthopedics ULNAR TUNNEL RELEASE 12/12/2022 Arm/Elbow Surgeon: Ramses Puentes MD; Location: [facility] MA[facility] OR; Service: Orthopedics ULNAR TUNNEL RELEASE 01/14/2023 Arm/Elbow/Right Right Cubital Tunnel Release with transposition; Surgeon: Ramses Puentes MD; Location: [facility]; Service: Orthopedics COLONOSCOPY KNEE ARTHROSCOPY 08/04/2023 Knee/Left LEFT KNEE ARTHROSCOPY partial lateral meniscus repair, medial meniscus root repair; Surgeon: Cesar Ellis MD; Location: [facility] OR; Service: Orthopedics Medical devices from this surgery are in the Medical Devices section. Medical History Medical History Date Comments Heart attack (HCC) 2014 Migraine Arthritis Heartburn Depression Anxiety, PTSD Shortness of breath exercise ind uced, can't walk a city block w/o SOB; can't walk a flight of steps w/o SOB; can lie flat OK Hypertension no meds at this time Sleep apnea uses CPAP settin g 4-8 Asthma Cardiac dysrhythmia tachycardia Meningioma (HCC) 2023 Gastroparesis Esophageal dysphagia Family History Medical History Relation Name Comments Thyroid Disease Daughter Heart Attack Father Heart Disease Father High Cholesterol Father Hypertension Father Heart Disease Maternal Grandfather Heart Disease Maternal Grandmother Heart Disease Mother Sleep Apnea Mother Heart Disease Paternal Grandfather Diabetes Paternal Grandmother Heart Disease Paternal Grandmother Anesth Problems Neg Hx Clotting Disorder Neg Hx Relation Name Status Comments Daughter Alive Father Maternal Grandfather Maternal Grandmother Mother Alive Paternal Grandfather Paternal Grandmother Social History Tobacco Use Types Packs/Day Years Used Date Smoking Tobacco: Former Cigarettes 1 5 0 02/18/1992 - 02/16/1997 Smokeless Tobacco: Never Tobacco Cessation:Counseling Given: Not Answered Alcohol Use Standard Drinks/Week Comments Yes 2 (1 standard drink = 0.6 oz pur e alcohol) occas. Social Connection and Isolat ion Panel [NHANES] Answer Date Recorded In a typical week, how many times do you talk on the phone with family, friends, or neighbors? More than three times a week 08/15/2022 How often do you get togethe r with friends or relatives? Never 08/15/2022 How often do you attend chur or synagogue services? Never 08/15/2022 Do you belong to any clubs o r organizations such as mandaeism groups, unions, fraternal or athletic groups, or school groups? No 08/15/2022 How often do you attend meet ings of the clubs or organizations you belong to? Never 08/15/2022 Are you , , di vorced, , never , or living with a partner? 08/15/2022 AUDIT-C Answer Date Recorded Q1: How often do you have a drink containing alc ohol? Monthly or less 08/15/2022 Q2: How many drinks containi ng alcohol do you have on a typical day when you are drinking? 1 or 2 08/15/2022 Q3: How often do you have si x or more drinks on one occasion? Less than monthly 08/15/2022 Overall Financial Resource Strain (CARDIA) Answe r Date Recorded How hard is it for you to pa y for the very basics like food, housing, medical care, and heating? Not very hard 08/17/2022 PHQ-2 Answer Date Recorded PHQ-2 Total Score 2 08/17/2022 [facility] - Occupational Stress Questionnaire Answer Date Recorded Do you feel stress - tense, restless, nervous, or anxious, or unable to sleep at night because your mind is troubled all the time - these days? Very much 08/15/2022 Exercise Vital Sign Answer Date Recorde d On average, how many days pe r week do you engage in moderate to strenuous exercise (like a brisk walk)? 0 days 08/17/2022 On average, how many minutes do you engage in exercise at this level? 0 min 08/17/2022 Hunger Vital Sign Answer Date Recorded Within the past 12 months, y ou worried that your food would run out before you got the money to buy more. Never true 08/18/19 23 Within the past 12 months, t he food you bought just didn't last and you didn't have money to get more. Never true 08/17/2022 PRAPARE - Transportation Answer Date Re corded In the past 12 months, has l ack of transportation kept you from medical appointments or from getting medications? No 02/2022 In the past 12 months, has l ack of transportation kept you from meetings, work, or from getting things needed for daily living? No 08/17/2022 Housing Stability Vital Sign Answer Pipe e Recorded In the last 12 months, was t here a time when you were not able to pay the mortgage or rent on time? Yes 08/15/2022 In the last 12 months, how many places have you lived? 1 08/15/2022 In the last 12 months, was t here a time when you did not have a steady place to sleep or slept in a penitentiary (including now)? 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 Not on file Not on file Not on file Obstetrics History Last Filed Vital Signs Vital Sign Reading Time Taken Comments Blood Pressure 119/79 08/04/2023 12:19 PM EDT Pulse 66 08/04/2023 12:02 PM EDT Temperature 36.1 C (96.9 F) 08/04/2023 12:02 PM EDT Respiratory Rate 16 08/04/2023 12:02 PM EDT Oxygen Saturation 93% 08/04/2023 12:02 PM EDT Inhaled Oxygen Concentration - - Weight 101.2 kg (223 lb) 08/04/2023 7:15 AM EDT Height 160 cm (5' 3 ) 07/23/2023 3:13 PM EDT Body Mass Index 39.5 07/23/2023 3:13 PM EDT Plan of Treatment Health Maintenance Due Date Last Done Comments Cologuard 2021 FIT 2021 Sigmoidoscopy 2021 Virtual Colonography 2021 Annual Wellness Exam 04/15/2023 04/15/2022, 12/30/19 20 COVID-19 Vaccine ( season) 2023 07/05/2020, 05/30/2020 Breast Cancer Screening 03/31/2024 03/31/19 24, 02/18/2022, 01/08/2021, Additional history exists Influenza Vaccine (Season Ended) 2024 10/25/2021, 02/22/2021, 11/09/2019 Colon Cancer Screening 06/19/2027 Colonoscopy 06/19/2027 06/20/2022 DTaP/TDaP/Td (2 - Td or Tdap) 04/25/2029 04/26/2019 Hepatitis B Vaccine Completed 05/13/2022, 3 Meningococcal B Vaccine Aged Out No l onger eligible based on patient's age to complete this topic Pneumococcal Vaccine 0-49 Aged Out No longer eligible based on patient's age to complete this topic Goals Goal Patient Goal Type Associated Problems Recent Progress Patient-Stated? Author Blood Pressure < 140/90 Blood Pressure 119/79(2023 12:19 PM EDT) No Putthoff, Aiad, LEGAL INSTRUCTOR Maintain a healthy diet, exercise regularly and maintain an ideal body weight General No Cheryl Kumar RMA Stay Tobacco Free Lifestyle No Rylie Gee CCMA Medical Devices Implanted Type Area Supervisor Ditching Device Identifier Shelf Expiration Date Model / Serial / Lot Loop Recorder-12/02 Implanted:11/17 (Quantity not on file) Left: Chest Button Sut 4mm Endbttn 20mm Lf F/Acl/Pcl Recon - [id number] Implanted:Qty: 1 on 08/04/2023 by Cesar Ellis MD at [facility] Left: Knee [employer]:ENDO 10/03/2027 [id number] / / [id number] Procedures Procedure Name Priority Date/Time Associated Diagnosis Comments MM MAMMO DIGITAL FAITH SCREEN BILAT Routine 03/31/2023 2:50 PM EST Encounter for screening mammogram for malignant neoplasm of breast COLONOSCOPY Routine 06/20/2022 9:48 AM EDT Screening for colon cancer Erosive gastritis from Last 3 Months or Most Recently Relevant to Health Maintenance Results * MM MAMMO DIGITAL FAITH SCREEN BILAT (03/31/2023 2:50 PM EST) Anatomical Region Laterality Modality Breast Bilateral Mammography 03/31/2023 3:16 PM EST Impressions 03/31/2023 3:16 PM EST Negative ([id number]) ~ RECOMMENDATION: Routine screening mammogram in 1 year. ~ DISCLAIMER * Any patient with a palpable abnormality, unexplained by breast imaging, should be managed on clinical basis by the attending physician. * Breast imaging has a false negative rate of 15%. * The patient was notified by mail of the results of this examination. *The patient's information was entered into a reminder system with a target due date for the next mammogram, in accordance with the [employer] and the Society of Breast Imaging recommendations. Narrative 03/31/2023 3:16 PM EST Procedure:MM MAMMO DIGITAL FAITH SCREEN BILAT ~ Reason for exam: screening, asymptomatic. Z12.31-Encounter for screening mammogram for malignant neoplasm of [id number] ~ MM MAMMO DIGITAL FAITH SCREEN BILAT Bilateral CC and MLO view(s) were taken. Technologist: Nico Delgadillo, RT(R)(M) The breast tissue is heterogeneously dense. This may lower the sensitivity of mammography. Prior study comparison: Compared with prior studies the most recent being 02/18/22, 01/08/21 No mammographic evidence of malignancy. ~ Procedure Note Vicki Garces MD - 03/31/2023 Procedure:MM MAMMO DIGITAL FAITH SCREEN BILAT ~ Reason for exam: screening, asymptomatic. Z12.31-Encounter for screening mammogram for malignant neoplasm of [id number] ~ MM MAMMO DIGITAL FAITH SCREEN BILAT Bilateral CC and MLO view(s) were taken. Technologist: Nico Delgadillo, RT(R)(M) The breast tissue is heterogeneously dense. This may lower thesensitivity of mammography. Prior study comparison: Compared with prior studies the most recentbeing 02/18/22, 01/08/21 No mammographic evidence of malignancy. ~ IMPRESSION: Negative ([id number]) ~ RECOMMENDATION: Routine screening mammogram in 1 year. ~ DISCLAIMER * Any patient with a palpable abnormality, unexplained by breast imaging, should be managed on clinical basis by the attending physician. * Breast imaging has a false negative rate of 15%. * The patient was notified by mail of the results of this examination. *The patient's information was entered into a reminder system with atarget due date for the next mammogram, in accordance with the [employer] and the Society of Breast Imaging recommendations. Mandeep Beckham DO IM MAMMOGRAPHY ORDERABLES Nicol leon Result * COLONOSCOPY (06/20/2022 9:48 AM EDT) Anatomical Region Laterality Modality Endoscopy Narrative 06/20/2022 9:58 AM EDT Table formatting from the original result was not included. Findings External medium hemorrhoids Recommendation Repeat colonoscopy in 5 years Family history of colon cancer Indication Screening for colon cancer Staff Staff Role Latasha Bauer RN Wrapper Counter Eric Salazar MD Anesthesiologist Fidencio Taylor MD Performing Provider Medications See Anesthesia Record. Preprocedure A history and physical has been performed, and patient medication allergies have been reviewed. The patient's tolerance of previous anesthesia has been reviewed. The risks and benefits of the procedure and the sedation options and risks were discussed with the patient. All questions were answered and informed consent obtained. ASA 3 - Patient with severe systemic disease Details of the Procedure The patient underwent monitored anesthesia care, which was administered by an anesthesia professional. The patient's blood pressure, heart rate, level of consciousness, oxygen, respirations, ECG and ETCO2 were monitored throughout the procedure. A digital rectal exam was performed. The scope was introduced through the anus and advanced to the cecum. Retroflexion was performed in the rectum. The quality of bowel preparation was evaluated using the [place] Bowel Preparation Scale with scores of: right colon = 3, transverse colon = 3, left colon = 3. The total BBPS score was 9. Bowel prep was adequate. The patient experienced no blood loss. The procedure was not difficult. The patient tolerated the procedure well. There were no apparent adverse events. Patient provided education and educated on specific discharge instructions. Patient educated on medications given during the procedure and new medications for discharge. Patient verbalizes understanding of discharge education. Patient stable and awaiting transport for discharge. Events Procedure Events Event Event Time ENDO SCOPE IN TIME 06/20/2022 9:34 AM ENDO CECUM REACHED 06/20/2022 9:37 AM ENDO SCOPE OUT TIME 06/20/2022 9:46 AM Specimens No specimens collected Fidencio Taylor MD ENDOSCOPY PROCEDURE ORDERA BLES Final Result from Last 3 Months or Most Recently Relevant to Health Maintenance Insurance [facility] [id number] [facility] [place] [facility] [place] Care Teams Commercial Parts Professional Relationship Specialty Start Date End Date Mandeep Beckham DO [address] [place] [id number] PCP - General Family Medicine 01/28/23
--- OUTSIDE RECORDS SUMMARY | 2024-07-27 13:14 | XMS_ITS | Encounter Summary ---
Author Organization [facility] Address [address] [place] [address] Care Team Providers Care Copping Machine Operator Name Role Phone Gurjit Mena MD Primary Care Provider [phone] Fausto Nieves MD Unavailable [phone] Reason for Visit * Reason Comments Medication Refill Encounter Details Date Type Department Care Team (Late st Contact Info) Description 07/18/2024 Refill [facility] Orthopedics - [address] [phone] Fausto Nieves MD [address] [place] [id number] Social History Tobacco Use Types Packs/Day [...] [facility] No 06/21/2024 Do you want help [...] Info) Description 07/28/2024 10:15 AM EDT Treatment [facility] OP Physical Therapy [address] [place] [phone] Du You, RN TELEMETRY 07/30/2024 10:15 AM EDT Treatment [facility] OP Physical Therapy [address] [place] [phone] Du You, RN TELEMETRY 09/07/2024 10:00 AM EDT Office Visit [facility] Orthopedics - [address] [phone] Fausto Nieves MD [address] [place] [phone] documented as of this encounter Visit Diagnoses Not on filedocumented in this encounter Care Teams Copping Machine Operator Relationship Specialty Start Date End Date Gurjit Mena MD [address] [place] [id number] PCP - General Family Medicine 06/17/24 Fausto Nieves MD [address] [place] [address] Orthopedic Surgery 06/30/24 documented as of this encounter
--- OUTSIDE RECORDS SUMMARY | 2024-07-27 13:14 | XMS_ITS | Clinical Summary ---
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 Active cholecalciferol (VITAMIN D3) 125 mcg (5,000 unit) tablet Take 1 capsule by mouth daily. Active escitalopram (LEXAPRO) 20 MG tablet Take 1 tablet (20 mg total) by mouth daily. Active estradioL (ESTRACE) 1 MG tablet Take 1 tablet (1 mg total) by mouth daily. Active fluticasone furoate-vilanteroL (BREO ELLIPTA) 200-25 mcg/dose dsdv Inhale 1 puff by mouth daily. Active ipratropium (ATROVENT HFA) 17 mcg/actuation inhaler Inhale 2 puffs by mouth as needed for wheezing. Active traZODone (DESYREL) 100 MG tablet Take 2 tablets (200 mg total) by mouth every night as needed. Active busPIRone (BUSPAR) 10 MG tablet Take 1 tablet (10 mg total) by mouth 3 (three) times daily. Active multivitamin per tablet Take 1 tablet by mouth daily ( Stress formula ). Active aspirin 81 MG EC tablet Take 1 tablet (81 mg total) by mouth 2 (two) times daily. 60 tablet 5 026 Active ferrous sulfate 325 (65 FE) MG EC tablet Take 1 tablet (325 mg total) by mouth daily. 30 tablet 5 026 Active docusate sodium (Colace) 100 MG capsule Take 1 capsule (100 mg total) by mouth 2 (two) times daily for 10 days. 20 capsule 5 025 pantoprazole (PROTONIX) 40 MG tablet Take 1 tablet (40 mg total) by mouth daily for 30 days. 30 tablet 5 025 meloxicam (MOBIC) 15 MG tablet Take 1 tablet (15 mg total) by mouth daily for 30 doses. 30 tablet 5 025 acetaminophen (Tylenol Extra Strength) 500 MG tablet Take 2 tablets (1,000 mg total) by mouth every 8 (eight) hours for 10 days. 60 tablet 5 025 oxyCODONE (ROXICODONE) 5 MG immediate release tablet Take 1 tablet (5 mg total) by mouth every 4 (four) hours as needed for pain (severe post operative pain) for up to 7 days. Max Daily Amount: 30 mg 42 tablet 5 025 traMADoL (Ultram) 50 mg tablet Take 1 tablet (50 mg total) by mouth every 8 (eight) hours as needed for pain (for mild to moderate post operative pain) for up to 7 days. Max Daily Amount: 150 mg 21 tablet 5 025 ondansetron (ZOFRAN-ODT) 4 MG disintegrating tablet Take 1 tablet (4 mg total) by mouth every 4 (four) hours as needed for nausea or vomiting for up to 7 days. 20 tablet 5 025 dicyclomine (BENTYL) 20 mg tablet Take 1 tablet (20 mg total) by mouth 4 (four) times daily for 8 days. 30 tablet 5 025 naproxen (NAPROSYN) 500 MG tablet Take 1 tablet (500 mg total) by mouth 2 (two) times daily with breakfast and dinner for 5 days. 10 tablet 5 025 Active Problems Problem Noted Date Diagnosed Date S/P total knee arthroplasty, left 07/06/2024 Mitral valve prolapse 06/21/2024 Chronic renal insufficiency 06/21/2024 Mild asthma 06/21/2024 Arthritis 06/21/2024 Status post left knee replacement with ANNA 06/2024 Overview (06/21/2024): DOS 06/21/[address] Nieves Anxiety Bradycardia Migraine FARHEEN on CPAP Resolved Problems Problem Noted Date Diagnosed Date Resolved Date History of arthroscopic knee surgery, Left 06/08/2024 06/21/2024 Traumatic arthritis of knee, left 06/08/2024 06/21/2024 Traumatic arthritis of left knee 06/08/2024 06/21/2024 Encounters Date Type Department Care Team Description 07/20/2024 9:30 AM EDT Treatment [facility] OP Physical Therapy [address] [place] [phone] Murali Bear, PT Status post left knee replacement with ANNA (Primary Dx) 07/20/2024 Travel 07/18/2024 Refill [facility] - [address] [phone] Fausto Nieves MD 07/15/2024 8:48 PM EDT - 07/15/2024 11:00 PM EDT Emergency [facility] Emergency Department [address] [place] [address] Patti English MD Nausea with vomiting (Primary Dx); Diarrhea; Viral infection; Nausea and vomiting, unspecified vomiting type; Diarrhea, unspecified type Discharge Disposition: Home or Self Care 07/15/2024 Travel 07/13/2024 10:15 AM EDT Treatment [facility] OP Physical Therapy [address] [place] [phone] Murali Bear, PT Status post left knee replacement with ANNA (Primary Dx) 07/13/2024 Travel 07/06/2024 10:05 AM EDT Ancillary Procedure [facility] [address] [address] Fausto Nieves MD 07/06/2024 10:00 AM EDT Office Visit [address] [phone] Fausto Nieves MD S/P total knee arthroplasty, left (Primary Dx) 07/06/2024 9:00 AM EDT Treatment [facility] OP Physical Therapy [address] [place], [place] [phone] Fausto Nieves MD 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, 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, 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 Status post left knee replacement with ANNA 07/06/2024 Travel 07/02/2024 10:30 AM EDT Office Visit [address] [phone] Ermias Obando PA-C S/P total knee arthroplasty, left DOS 06/21/2024 06/30/2024 Telephone [facility] Medical Surgical Unit [address] [place] [phone] Lorin Paez RN Post-Op Follow-up 06/29/2024 Telephone [facility] - [address] [place] [phone] Fausto Nieves MD ER VISIT 06/28/2024 5:23 PM EDT - 06/28/2024 8:04 PM EDT Emergency [facility] Emergency Department [address] [place] [phone] Essence Michaud MD Acute pain of left knee (Primary Dx) Discharge Disposition: Home or Self Care 06/28/2024 Travel 06/23/2024 8:45 AM EDT Evaluation [facility] OP Physical Therapy [address] [place] [address] Murali Bear, PT Status post left knee replacement with ANNA (Primary Dx) 06/23/2024 Travel 06/21/2024 7:30 AM EDT - 06/21/2024 9:44 AM EDT Surgery [facility] Operating Room [address] [place] [address] Fausto Nieves MD ARTHROPLASTY, KNEE, ROBOT-ASSISTED 06/21/2024 7:29 AM EDT Anesthesia Event [facility] Operating Room [address] [place] [phone] Moe Francois, Beatriz Mabry CRNA 06/21/2024 6:06 AM EDT - 06/22/2024 1:30 PM EDT Hospital Encounter [facility] Medical Surgical Unit [address] [place], [place] [phone] Fausto Nieves MD Status post left knee replacement with ANNA (Primary Dx); Traumatic arthritis of left knee Discharge Disposition: Home or Self Care 06/21/2024 Travel 06/17/2024 Surgery Prep [facility] - [address] [place] [phone] Sho Rain PA-C Traumatic arthritis of left knee (Primary Dx) 06/14/2024 5:12 PM EDT - 06/14/2024 11:59 PM EDT Hospital Encounter [facility] CT Imaging [address] [place] [phone] Fausto Nieves MD History of arthroscopic knee surgery, Left; Traumatic arthritis of knee, left Discharge Disposition: Home or Self Care 06/14/2024 Travel 06/08/2024 11:45 AM EDT Lab Patient Walk-In [facility] Lab [address] [place] [phone] Fausto Nieves MD Pre-op testing 06/08/2024 11:01 AM EDT - 06/08/2024 11:59 PM EDT Hospital Encounter [facility] Diagnostic Imaging [address] [place] [address] Fausto Nieves MD Pre-op testing Discharge Disposition: Home or Self Care 06/08/2024 11:00 AM EDT Hospital Encounter [facility] Respiratory Care [address] [place] [address] Fausto Nieves MD Pre-op testing Discharge Disposition: Home or Self Care 06/08/2024 10:00 AM EDT Office Visit [address] [phone] Fausto Nieves MD History of arthroscopic knee surgery, Left (Primary Dx); Traumatic arthritis of knee, left; Pre-op testing; Traumatic arthritis of left knee 06/08/2024 Travel 06/04/2024 9:35 AM EDT Ancillary Procedure [address] [phone] Ermias Obando PA-C 06/04/2024 9:30 AM EDT Office Visit [address] [phone] Ermias Obando PA-C History of arthroscopic knee surgery, Left (Primary Dx); Left knee pain; Traumatic arthritis of knee, left from Last 3 Months Family History Medical History Relation Name Comments Earl Syndrome (HNPCC) Brother Heart attack Father Hypertension Father Atrial fibrillation Mother Diabetes Sister Relation Name Status Comments Brother Father Mother Sister Social History Tobacco Use Types Packs/Day Years Used Date Smoking Tobacco: Never Smokeless Tobacco: Never Tobacco Cessation:Counseling Given: Not Answered Alcohol Use Standard Drinks/Week Comments Not Currently [...] your living situation today? I have a silverio place to live 06/21/2024 Think about [...] Do you speak a language other than Emirati at ho me? No 06/21/2024 Do you [...] on file Sexual Orientation Not on file Last Filed Vital Signs Vital Sign Reading Time Taken Comments Blood Pressure 139/81 07/15/2024 10:58 PM EDT Pulse 58 07/15/2024 10:58 PM EDT Temperature 36.3 C (97.4 F) 07/15/2024 10:58 PM EDT Respiratory Rate 20 07/15/2024 10:58 PM EDT Oxygen Saturation 99% 07/15/2024 10:58 PM EDT Inhaled Oxygen Concentration 21% 06/21/2024 1 0:31 PM EDT Weight 93 kg (205 lb) 07/15/2024 8:52 PM EDT Height 160 cm (5' 3 ) 07/15/2024 8:52 PM EDT Body Mass Index 36.31 07/15/2024 8:52 PM EDT Plan of Treatment Upcoming Encounters Date Type Department Care Team (Late st Contact Info) Description 07/28/2024 10:15 AM EDT Treatment [facility] OP Physical Therapy [address] [place] [address] Du You, 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 07/30/2024 10:15 AM EDT Treatment [facility] OP Physical Therapy [address] [place] [address] Du You, 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 09/07/2024 10:00 AM EDT Office Visit [facility] - [address] [phone] Fausto Nieves MD [address] [place] [address] Health Maintenance Due Date Last Done Comments CT Colonography 1976 FOBT/FIT 1976 Fit-DNA (Cologuard) 1976 Sigmoidoscopy 1976 Depression Screening (12+) 1988 HIV Screening 10/30/1991 Hepatitis C Screening 1994 Pneumococcal Vaccine: 0-49 Y ears (1 of 2 - PCV) 10/30/1995 Pap Smear 1997 Lipid Panel 2021 COVID-19 VACCINE (3 - 2023-2 5 season) 2023 07/05/2020, 05/30/2020 Influenza Vaccine (Season Ended) 2024 Breast Cancer Screening 03/31/2025 03/31/19 24, 03/31/2023, 02/18/2022, Additional history exists Tobacco Cessation Counseling and Screening (12+) 07/15/2025 07/15/2024 DTAP/TDAP/TD VACCINES (2 - T d or Tdap) 04/25/2029 04/26/2019 Colonoscopy 06/20/2032 06/20/2022 Colorectal Cancer Screening 06/20/2032 Medical Devices Implanted Type Area In Flight Refueling Operator Device Identifier Shelf Expiration Date Model / Serial / Lot Comp Triathlon Alfa Michaud Sz3 5536-B-300 - [id number] Implanted:Qt y: 1 on 06/21/2024 by Fausto Nieves MD at [facility] TOTAL JOINT CONSTRUCT Left: Knee LEANDER:[employer] [id number] 10/06/2028 5536-B-30 0 / / [id number] Patella Press Fit Tritanium 5552-L-299 - [id number] Implanted:Qt y: 1 on 06/21/2024 by Fausto Nieves MD at [facility] TOTAL JOINT CONSTRUCT Left: Knee LEANDER:[employer] [id number] 02/17/2029 5552-L-29 9 / / [id number] Comp Fem P/A Cr Beaded Sz3 L 5517-F-301 - [id number] Implanted:Qt y: 1 on 06/21/2024 by Fausto Nieves MD at [facility] TOTAL JOINT CONSTRUCT Left: Knee [employer]ANDER:[employer] [id number] 02/07/2029 5517-F-30 1 / / [id number] Insrt Tib Bearing #3 10mm 1078-S-357-E - [id number] Implanted:Qt y: 1 on 06/21/2024 by Fausto Nieves MD at [facility] TOTAL JOINT CONSTRUCT Left: Knee [employer]ANDER:[employer] [id number] 11/22/2028 5531-G-31 0-E / / [id number] Loop Recorder Explanted Type Area In Flight Refueling Operator Device Identifier Shelf Expiration Date Model / Serial / Lot Pin Bone [id number] Strl [id number] - [id number] Explanted:Qty: 1 on 06/21/2024 at [facility] IMPLANTS Left: Knee [employer]ANDER:[employer] 02/25/2029 [id number] / / [id number] Pin Bone [id number] Strl [id number] - [id number] Explanted:Qty: 1 on 06/21/2024 at [facility] IMPLANTS Left: Knee [employer]ANDER:[employer] 03/10/2029 [id number] / / [id number] Procedures Procedure Name Priority Date/Time Associated Diagnosis Comments URINALYSIS, REFLEX MICROSCOPIC AND CULTURE IF INDICATED STAT 07/15/2024 10:18 PM EDT LIPASE STAT 07/15/2024 9:21 PM EDT HEPATIC FUNCTION PANEL STAT 07/15/2024 9:21 PM EDT BASIC METABOLIC PANEL STAT 07/15/2024 9:21 PM EDT CBC W/ AUTO DIFF STAT 07/15/2024 9:21 PM EDT XR KNEE 1 OR 2 VIEWS LEFT Routine 07/06/2024 10:03 AM EDT S/P total knee arthroplasty, left US DOPPLER VENOUS LEG LEFT STAT 06/28/2024 7:19 PM EDT C-REACTIVE PROTEIN STAT 06/28/2024 5: 32 PM EDT LACTIC ACID WITH REFLEX STAT 06/28/2024 5:32 PM EDT COMPREHENSIVE METABOLIC PANEL STAT 06/28/2024 5:32 PM EDT CBC W/ AUTO DIFF STAT 06/28/2024 5:32 PM EDT HEMOGLOBIN AND HEMATOCRIT STAT 06/22/2024 3:45 AM EDT XR KNEE 1 OR 2 VIEWS LEFT STAT 06/21/2024 10:01 AM EDT ANESTHESIA INTUBATION Routine 06/21/2024 7:40 AM EDT ANESTHESIA INTUBATION Routine 06/21/2024 7:37 AM EDT OK ARTHRP KNE CONDYLE&PLATU MEDIAL&LAT COMPARTMENTS 06/21/2024 7:29 AM EDT Traumatic arthritis of left knee Case Notes 0630Adhesive allergy TISSUE EXAM [facility] AP Routine 06/21/2024 7:13 AM EDT Traumatic arthritis of left knee HC PERIPHERAL NERVE BLOCK SINGLE SHOT Routine 06/21/2024 7:[address] LOWER EXTREMITY WITHOUT IV CONTRAST LEFT Routine 06/14/2024 5:20 PM EDT History of arthroscopic knee surgery, Left Traumatic arthritis of knee, left [id number] 12-LEAD Routine 06/08/2024 11:27 AM EDT Pre-op testing URINALYSIS, REFLEX MICROSCOPIC AND CULTURE IF INDICATED Routine 06/08/2024 11:13 AM EDT Pre-op testing COMPREHENSIVE METABOLIC PANEL Routine 06/08/2024 11:13 AM EDT Pre-op testing CBC W/ AUTO DIFF Routine 06/08/2024 11:1 3 AM EDT Pre-op testing MRSA SCREEN Routine 06/08/2024 11:13 AM EDT Pre-op testing XR CHEST PA AND LATERAL Routine 06/08/2024 11:08 AM EDT Pre-op testing XR KNEE 1 OR 2 VIEWS LEFT Routine 06/04/2024 9:30 AM EDT History of arthroscopic knee surgery, Left Left knee pain from Last 3 Months Results * Urinalysis, Reflex Microscopic and Culture If Indicated (07/15/2024 10:18 PM EDT) Only the most recent of2 resultswithin the time period is included. Color, UA Straw 07/15/2024 10:39 PM EDT [facility] Clarity, UA Clear 07/15/2024 10:39 PM EDT [facility] Specific [place], UA 1.020 1.002 - 1.030 07/15/2024 10:39 PM EDT [facility] pH, UA 6.0 5.0 - 9.0 07/15/2024 10:39 PM EDT [facility] Leukocytes, UA Negative Negative 07/15/2024 10:39 PM EDT [facility] Nitrite, UA Negative Negative 07/15/2024 10:39 PM EDT [facility] Protein, UA Negative Negative 07/15/2024 10:39 PM EDT [facility] Glucose, UA Negative Negative 07/15/2024 10:39 PM EDT [facility] Ketones, UA Negative Negative 07/15/2024 10:39 PM EDT [facility] Bilirubin, UA Negative Negative 07/15/2024 10:39 PM EDT [facility] Blood, UA Negative Negative 07/15/2024 10:39 PM EDT [facility] Urobilinogen, UA 0.2 mg/dL Normal 07/15/2024 10:39 PM EDT [facility] Specimen Source Urine, Clean Catch 07/15/2024 10:39 PM EDT [facility] Urine URINE SPECIMEN COLLECTION, CLEAN CATCH / Unknown 07/15/2024 10:18 PM EDT 07/15/2024 10:25 PM EDT us Patti English MD URINE ORDERABLES Final Result [facility] [address] [place] [address], [facility] [phone] * (ABNORMAL) CBC with Auto Diff (07/15/2024 9:21 PM EDT) Only the most recent of3 resultswithin the time period is included. WBC 8.1 4.8 - 10.8 K/ L 07/15/2024 9:33 PM EDT [facility] RBC 4.14 3.50 - 5.20 M/ L 07/15/2024 9:33 PM EDT [facility] Hemoglobin 12.8 11.7 - 15.8 GM/DL 07/15/2024 9:33 PM EDT [facility] Hematocrit 38.1 35.0 - 47.0 % 07/15/2024 9:33 PM EDT [facility] MCV 92 81 - 101 fL 07/15/2024 9:33 PM EDT [facility] MCH 30.9 27.0 - 34.0 pg 07/15/2024 9:33 PM EDT [facility] MCHC 33.6 32.0 - 36.0 GM/DL 07/15/2024 9:33 PM EDT [facility] RDW 12.5 11.5 - 14.5 % 07/15/2024 9:33 PM EDT [facility] Platelets 323 150 - 400 K/CU MM 07/15/2024 9:33 PM EDT [facility] MPV 10.6 9.4 - 12.4 fL 07/15/2024 9:33 PM EDT [facility] Nucleated Red Blood Cell 0.0 0 - 0.2 % 07/15/2024 9:33 PM EDT [facility] % Neutros 54 37 - 80 % 07/15/2024 9:33 PM EDT [facility] % Lymphs 33 10 - 50 % 07/15/2024 9:33 PM EDT [facility] % Monos 7 5 - 13 % 07/15/2024 9:33 PM EDT [facility] % Eos 5 0 - 7 % 07/15/2024 9:33 PM EDT [facility] % Baso 1 0 - 3 % 07/15/2024 9:33 PM EDT [facility] NRBC Absolute <0.01 0 - 0.012 K/ul 07/15/2024 9:33 PM EDT [facility] # Neutros 4.39 2.00 - 6.90 K/ L 07/15/2024 9:33 PM EDT [facility] # Lymphs 2.70 0.60 - 3.40 K/ L 07/15/2024 9:33 PM EDT [facility] # Monos 0.53 0.00 - 0.90 K/ L 07/15/2024 9:33 PM EDT [facility] # Eos 0.42 0.00 - 0.70 K/ L 07/15/2024 9:33 PM EDT [facility] # Baso 0.04 0.00 - 0.20 K/ L 07/15/2024 9:33 PM EDT [facility] Immature Granulocytes-Re lative 0.40 % 07/15/2024 9:33 PM EDT [facility] # IG 0.03(H) 0.00 - 0.00 K/uL 07/15/2024 9:33 PM EDT [facility] Blood Venipuncture / Unknown 07/15/2024 9:21 PM EDT 07/15/2024 9:31 PM EDT Narrative [facility] - 07/15/2024 9:33 PM EDT [...] Blast? Flag noted Atypical Lymph flag noted Patti English MD LAB BLOOD ORDERABLES Final Resu lt Performing Organization Address City/[facility]/ZIP Co de Phone Number [facility] [address] [place] [address] * Lipase (07/15/2024 9:21 PM EDT) Lipase 18 16 - 77 U/L 07/15/2024 9:55 PM EDT [facility] Blood Venipuncture / Unknown 07/15/2024 9:21 PM EDT 07/15/2024 9:31 PM EDT Patti English MD LAB BLOOD ORDERABLES Final Resu lt [facility] [address] [phone] * (ABNORMAL) Hepatic function panel (07/15/2024 9:21 PM EDT) Protein, Total 7.4 6.4 - 8.2 gm/dL 07/15/2024 9:55 PM EDT [facility] Albumin 3.5 3.4 - 5.0 g/dL 07/15/2024 9:55 PM EDT [facility] Total Bilirubin 0.3 0.2 - 1.0 mg/dL 07/15/2024 9:55 [facility] Bilirubin, Direct 0.1 0.1 - 0.2 mg/dL 07/15/2024 9:55 PM [facility] Alkaline Phosphatase 128(H) 46 - 116 U/L 07/15/2024 9:55 PM [facility] Globulin 3.9 g/dL 07/15/2024 9:55 PM [facility] A/G Ratio 0.9 07/15/2024 9:55 PM [facility] AST 20 15 - 37 U/L 07/15/2024 9:55 PM [facility] Comment:[facility] has become aware of sulfasalazine and sulfapyridine [...] - 78 U/L 07/15/2024 9:55 PM EDT [facility] Comment:[facility] [employer] has become aware of sulfasalazine and sulfapyridine [...] MD LAB BLOOD ORDERABLES Final Resu lt [facility] [address] [place] [address] * (ABNORMAL) Basic Metabolic Panel (07/15/2024 9:21 PM EDT) Sodium 135(L) 136 - 145 meq/L 07/15/2024 9:55 PM EDT [facility] Potassium 3.7 3.5 - 5.1 meq/L 07/15/2024 9:55 PM EDT [facility] Chloride 103 98 - 107 meq/L 07/15/2024 9:55 PM EDT [facility] CO2 26 21 - 32 meq/L 07/15/2024 9:55 PM EDT [facility] Anion Gap 10(L) 11 - 22 07/15/2024 9:55 PM EDT [facility] BUN 8 7 - 18 mg/dL 07/15/2024 9:55 PM EDT [facility] Creatinine 1.01 0.55 - 1.10 mg/dL 07/15/2024 9:55 PM EDT [facility] BUN/Creatinine 8 07/15/2024 9:55 PM EDT [facility] Glucose 113(H) 70 - 99 mg/dL 07/15/2024 9:55 PM EDT [facility] Calcium 8.9 8.5 - 10.1 mg/dL 07/15/2024 9:55 PM EDT [facility] Osmolality Calc 269.2 mOsm/kg 9:55 PM EDT [facility] eGFR (mL/min/1.73m2) >60 >=60 mL/min/1.7 3m2 07/15/2024 9:55 PM EDT [facility] Comment:eGFR of <60 suggests chronic kidney disease if found over a 3 month period of time. eGFR <15 indicates renal failure. Blood Venipuncture / Unknown 07/15/2024 9:21 PM EDT 07/15/2024 9:31 PM EDT Patti English MD LAB BLOOD ORDERABLES Final Resu lt [facility] [address] [place] [address], [facility] [phone] * XR knee 1 or 2 views left (07/06/2024 10:03 AM EDT) Only the most recent of3 resultswithin the time period is included. Anatomical Region Laterality Modality Thigh, Knee, Leg X-Ray Impressions 07/06/2024 10:46 AM EDT maintained hardware without signs of acute bony abnormalities. Images personally reviewed and dictated by Ermias Obando PA-C under direct supervision of Dr. Fausto Nieves in office today. Narrative 07/06/2024 10:46 AM EDT HISTORY: s/p LTKA Fausto Nieves MD IMG DIAGNOSTIC IMAGING ORDERAB LES Final Result * US DOPPLER VENOUS LEG LEFT (06/28/2024 [...] CV VASCULAR ORDERABLE S Final Result * Lactic Acid with reflex (SJ) (06/28/2024 5:32 PM EDT) Lactic Acid Level (mmol/L) 0.9 0.4 - 2.0 mmol/L 06/28/2024 6:03 PM EDT [facility] Comment:If a Lactic Acid Lev el with Reflex if Indicated result is greater than 2.0, a Lactic Acid Level will be ordered to be collected 2 hours after the original collection time. Blood Venipuncture / Unknown 06/28/2024 5:32 PM EDT 06/28/2024 5:37 PM EDT Melvin Yee APRN LAB BLOOD ORDERABLES Final Result Performing Organization Address City/[facility]/ZIP Co de Phone Number [facility] [address] [place] [address] * (ABNORMAL) C-Reactive Protein (06/28/2024 5:32 PM EDT) CRP 4.44(H) 0.05 - 0.25 mg/dL 06/28/2024 6:08 PM EDT [facility] Blood Venipuncture / Unknown 06/28/2024 5:32 PM EDT 06/28/2024 5:37 PM EDT Melvin Yee APRN LAB BLOOD ORDERABLES Final Result [facility] [address] [place] [address], [facility] [phone] * (ABNORMAL) Comprehensive metabolic panel (06/28/2024 5:32 PM EDT) Only the most recent of2 resultswithin the time period is included. Sodium 139 136 - 145 meq/L 06/28/2024 6:08 PM EDT [facility] Potassium 4.6 3.5 - 5.1 meq/L 06/28/2024 6:08 PM EDT [facility] Chloride 106 98 - 107 meq/L 06/28/2024 6:08 PM EDT [facility] CO2 25 21 - 32 meq/L 06/28/2024 6:08 PM EDT [facility] Calcium 9.0 8.5 - 10.1 mg/dL 06/28/2024 6:08 PM EDT [facility] Glucose 90 70 - 99 mg/dL 06/28/2024 6:08 PM EDT [facility] BUN 14 7 - 18 mg/dL 06/28/2024 6:08 PM EDT [facility] Creatinine 0.87 0.55 - 1.10 mg/dL 06/28/2024 6:08 PM EDT [facility] BUN/Creatinine 16 06/28/2024 6:08 PM EDT [facility] Albumin 3.1(L) 3.4 - 5.0 g/dL 06/28/2024 6:08 PM EDT [facility] Alkaline Phosphatase 102 46 - 116 U/L 06/28/2024 6:08 PM EDT [facility] ALT 32 12 - 78 U/L 06/28/2024 6:08 PM EDT [facility] AST 42(H) 15 - 37 U/L 06/28/2024 6:08 PM EDT [facility] Total Bilirubin 0.7 0.2 - 1.0 mg/dL 06/28/2024 6:08 PM EDT [facility] Protein, Total 7.3 6.4 - 8.2 gm/dL 06/28/2024 6:08 PM EDT [facility] Anion Gap 13 11 - 22 06/28/2024 6:08 PM EDT [facility] A/G Ratio 0.7 06/28/2024 6:08 PM EDT [facility] Globulin 4.2 g/dL 06/28/2024 6:08 PM EDT [facility] Osmolality Calc 277.5 mOsm/kg 6:08 PM EDT [facility] eGFR (mL/min/1.73m2) >60 >=60 mL/min/1.7 3m2 06/28/2024 6:08 PM EDT [facility] Comment:ESTIMATED GFR IS NOT ACCURATE CREATININE CLEARANCE IN PREDICTING GLOMERULAR FILTRATION RATE. ESTIMATED GFR IS NOT APPLICABLE FOR DIALYSIS PATIENTS. Blood Venipuncture / Unknown 06/28/2024 5:32 PM EDT 06/28/2024 5:37 PM EDT us Melvin Yee APRN LAB BLOOD ORDERABLES Final Result [facility] [address] [place] [address] * (ABNORMAL) Hemoglobin and Hematocrit (06/22/2024 3:45 AM EDT) Hemoglobin 11.6(L) 11.7 - 15.8 GM/DL 06/22/2024 4:09 AM EDT [facility] Hematocrit 34.7(L) 35.0 - 47.0 % 06/22/2024 4:09 AM EDT [facility] Blood Venipuncture / Unknown 06/22/2024 3:45 AM EDT 06/22/2024 3:57 AM EDT us Fausto Nieves MD LAB BLOOD ORDERABLES Final Res ult [facility] [address] [place] [address] * AN SINGLE LUMEN INTUBATION (06/21/2024 7:40 [...] a few minutes. Tidal volumes <200 with [id number] peak pressure, SpO2 started to taper down, reached 93%. Rocuronium IV then intubated successfully, see additional intubation note us Moe Francois [facility] ANESTHESIA ORDERABLES Final Result * Tissue Exam (06/21/2024 7:13 AM EDT) AP RESULT See Note: [facility] Comment: [facility] [address] [place] [address] or [phone] Noe Fuentes M.D., Chief Cook PATIENT NAME LABORATORY NO. [id number]. [id number] AGE SEX SSN CLIENT REF # [place] [id number] 1975 F [id number] [place] REQUESTING Emigdio ATTENDING Emigdio [facility] [place] [id number] DATE COLLECTED DATE RECEIVED DATE REPORTED 06/21/2024 06/21/2024 06/22/2024 DIAGNOSIS: A. BONE FRAGMENTS, GROSS ONLY, LEFT KNEE: GROSS DIAGNOSIS: Changes consistent with osteoarthritis B. HARDWARE, LEFT KNEE: GROSS DIAGNOSIS: Consistent with explanted hardware BG/sm CLINICAL HISTORY: Traumatic arthropathy, left knee SPECIMENS RECEIVED: A. BONE FRAGMENTS, GROSS ONLY, LEFT KNEE B. HARDWARE, LEFT KNEE Professional interpretation rendered by Paramjit Roldan M.D., F.C.A.P. at [facility], [employer], [address] [place] [address]. GROSS DESCRIPTION: A. Received in formalin labeled [...] BY: Paramjit Roldan M.D., F.C.A.P. CPT CODES: [id number] Bone STRUCTURE OF LEFT KNEE REGION / Unknown 06/21/2024 7:13 AM EDT Biomedical device (physical object) STRUCTURE OF LEFT KNEE REGION / Unknown 06/21/2024 9:07 AM EDT us Fausto Nieves MD PATHOLOGY/CYTOLOGY ORDERABLES Final Result [facility] [address] [place] [address] * HC PERIPHERAL NERVE BLOCK SINGLE SHOT (06/21/2024 7:05 AM EDT) Narrative Dmitriy Long MD - 06/21/2024 7:05 AM EDT Dmitriy [...] supine Prep: ChloraPrep Patient monitoring: heart rate, celery packer and continuous pulse ox Block type: adductor [...] See attached images uploaded to MEDIA via [email or web address] ( due to [facility] not having an interface between the [employer] and Radiology). us Moe Francois [facility] ANESTHESIA ORDERABLES Final Result * CT lower extremity without IV contrast [...] by Bessie Herrera MD Fausto Nieves MD IMG CT ORDERABLES Final Result * ECG 12 lead (06/08/2024 11:27 AM EDT) VENTRICULAR RATE EKG/MIN 46 BPM GE MUSE ATRIAL RATE (MCT) 46 BPM GE MUSE OK Interval 206 ms GE MUSE QRS-INTERVAL (MSEC) 96 ms GE MUSE QT Interval 496 ms GE MUSE QTC Interval 434 ms GE MUSE P [place] 54 degrees GE MUSE R AXIS (MCT) 20 degrees GE MUSE T Wave [place] 21 degrees GE MUSE [place] Diagnosis Sinus bradycardia Otherwise normal ECG No previous ECGs available Confirmed by Emigdio CRUZ RICHARD ([id number]) on 06/08/2024 11:45:34 AM GE MUSE 06/08/2024 11:2 7 AM EDT 06/08/2024 11:45 AM EDT Fausto Nieves MD ECG ORDERABLES Final Result GE MUSE * MRSA Screen (06/08/2024 11:13 AM EDT) MRSA by PCR [facility] MRSA Not Detected by PCR MRSA Not Detected by PCR DEVICE ID9 06/08/2024 5:03 PM EDT [facility] Nasal BOTH ANTERIOR NARES / Unknown 06/08/2024 11:13 AM EDT 06/08/2024 11:40 AM EDT us Fausto Nieves MD MICROBIOLOGY - GENERAL ORDERAB LES Final Result [facility] [address] [phone] * X-ray chest PA and lateral (06/08/2024 [...] interpreted, and dictated by Neeta Cazares MD us Fausto Nieves MD IMG DIAGNOSTIC IMAGING ORDERAB LES Final Result from Last 3 Months Insurance [id number] (Home) [address] [place] [address] [employer] MEDICA[employer] Advance Directives For more information, please contact: [phone] * Full Code (Latest Code Status on File) Date Activated Date Inactivated Comments 06/21/2024 9:24 AM 06/22/2024 2:30 PM * Full Code Date Activated Date Inactivated Comments 06/21/2024 5:31 AM 06/21/2024 9:24 AM Care Teams Sewer Line Repairer Relationship Specialty Start Date End Date Gurjit Mena MD [address] [place] [address] PCP - General Family Medicine 06/17/24 Fausto Nieves MD [address] [place] [address] Orthopedic Surgery 06/30/24
--- OUTSIDE RECORDS SUMMARY | 2024-07-27 13:14 | XMS_ITS | Encounter Summary ---
Author Organization [employer] Address [address] [place] [address] Care Team Providers Care Divine Healer Name Role Phone Gurjit Mena MD Primary Care Provider [phone] Reason for Visit * Reason Onset Date Comments ER VISIT 06/29/2024 Encounter Details Date Type Department Care Team (Late st Contact Info) Description 06/29/2024 Telephone [facility] Orthopedics - [address] [place] [address] Fausto Nieves MD [address] [place] [address] ER VISIT Social History Tobacco Use Types Packs/Day Years [...] harm? Never 06/21/2024 How often does anyone, inclu ding family and friends, scream or curse at [...] speak a language other than [place] at [facility]? No 06/21/2024 Do you want [...] on file documented as of this encounter Miscellaneous Notes * Telephone Encounter - Sho Rain PA-C - 06/29/2024 2:50 PM EDT Spoke with Alonso Seo PA-C of [facility] ED. Patient presented with body aches, chills, and left knee pain. Bilateral Doppler US performed and were negative. Labs WNL aside from elevated CRP (surgery 06/21/24). No fever in ED today. Images provided of knee via cell phone and uploaded into [employer]. Patient treated conservatively with new dressing placement [place] Sho [place] PA-C * Telephone Encounter - Monserrat Ortiz CMA - 06/29/2024 2:38 PM EDT Images from the original note were not included. Image shared via cell from patient while at [facility] today * Telephone Encounter - Shannan Mosher - 06/29/2024 1:08 PM EDTSummary: ER VISIT Charge nurse from [facility] ER calling to speak with Dr. Nieves. Patient is currently being seen in the ER S/P LTKA on 06/21/24. Is experiencing pain at the joint as well as excess swelling. Possible infection. Charge nurse Misty requesting Dr. Nieves to advise if he is available. Will proceed with [place] regardless of contact. Call back number [phone]. documented in this encounter Plan of Treatment Upcoming Encounters Date Type Department Care Team (Late st Contact Info) Description 07/28/2024 10:15 AM EDT Treatment [facility] OP Physical Therapy [address] [place] [phone] Du You, MEDICATION AIDE 07/30/2024 10:15 AM EDT Treatment [facility] OP Physical Therapy [address] [place] [phone] Du You, MEDICATION AIDE 09/07/2024 10:00 AM EDT Office Visit [facility] Orthopedics - [address] [phone] Fausto Nieves MD [address] [place] [place] [phone] documented as of this encounter Visit Diagnoses Not on filedocumented in this encounter Care Teams Divine Healer Relationship Specialty Start Date End Date Gurjit Mena MD [address] [place] [address] PCP - General Family Medicine 06/17/24 documented as of this encounter
--- OUTSIDE RECORDS SUMMARY | 2024-07-27 13:14 | XMS_ITS | Encounter Summary ---
Author Organization [employer] Address [address] [place] [address] Care Team Providers Care Stone Operator Name Role Phone Gurjit Mena MD Primary Care Provider [phone] Fausto iNeves MD Unavailable [phone] Reason for Visit * Reason Onset Date Comments Post-Op Follow-up 06/30/2024 Encounter Details Date Type Department Care Team (Late st Contact Info) Description 06/30/2024 Telephone [facility] Medical Surgical Unit [address] [place] [phone] Lorin Paez RN Post-Op Follow-up Social History Tobacco Use Types Packs/Day Years [...] Do you speak a language other than Burkinan at [facility]? No 06/21/2024 Do you want [...] encounter Miscellaneous Notes * Telephone Encounter - Lorin Paez RN - 06/30/2024 3:22 PM EDT Patient s/p TKA, reports she has been to ER for infection to need. Patient had appointment with surgeon's office today, 06/30/24, and left before being seen due to wait time, states she has scheduled appointment on 07/06/24. Participating in outpatient therapy and using equipment as instructed per patient. Covaderm placed to incision site per emergency room staff remains C/D/I. Patient instructed to contact MD office for issues/concerns. documented in this encounter Plan of Treatment Upcoming Encounters Date Type Department Care Team (Late st Contact Info) Description 07/28/2024 10:15 AM EDT Treatment [facility] OP Physical Therapy [address] [place] [phone] Du You PTA 07/30/2024 10:15 AM EDT Treatment [facility] OP Physical Therapy [address] [place] [phone] Du You, BUSINESS SOLUTIONS CONSULTANT 09/07/2024 10:00 AM EDT Office Visit [facility] Orthopedics - [address] [phone] Fausto Nieves MD [address] [place] [phone] documented as of this encounter Visit Diagnoses Not on filedocumented in this encounter Care Teams Stone Operator Relationship Specialty Start Date End Date Gurjit Mena MD [address] [place] [address] PCP - General Family Medicine 06/17/24 Fasuto Nieves MD [address] [place] [address] Orthopedic Surgery 06/30/24 documented as of this encounter
--- OUTSIDE RECORDS SUMMARY | 2024-07-27 13:14 | XMS_ITS | Encounter Summary ---
Author Organization [employer] Address [address] [place] [address] Care Team Providers Care Paper Bag Press Operator Name Role Phone Gurjit Mena MD Primary Care Provider [phone]- [phone] Fausto Nieves MD Unavailable [phone] Encounter Details Date Type Department Care Team (Latest Contact Info) Description 07/20/2024 Travel Social History Tobacco Use Types Packs/Day Years [...] Do you speak a language other than Indian at [facility]? No 06/21/2024 Do you want help with [...] Info) Description 07/28/2024 10:15 AM EDT Treatment [facility] OP Physical Therapy [address] [place] [phone] Du You, MOBILE PAINT SPECIALIST 07/30/2024 10:15 AM EDT Treatment [facility] OP Physical Therapy [address] [place] [phone] Du You, MOBILE PAINT SPECIALIST 09/07/2024 10:00 AM EDT Office Visit [facility] Orthopedics - [address] [phone] Fausto Nieves MD [address] [place] [phone] documented as of this encounter Visit Diagnoses Not on filedocumented in this encounter Care Teams Paper Bag Press Operator Relationship Specialty Start Date End Date Gurjit Mena MD [address] [place] [address] PCP - General Family Medicine 06/17/24 Fausto Nieves MD [address] [place] [address] Orthopedic Surgery 06/30/24 documented as of this encounter
--- OUTSIDE RECORDS SUMMARY | 2024-07-27 13:14 | XMS_ITS | Referral Summary ---
Author Organization [employer] Address [address] [place] [address] Care Team Providers Care Fixture Maker Name Role Phone Gurjit Mena MD Primary Care Provider [phone] Fausto Nieves MD Unavailable [phone] Encounters Date Type Department Care Team Description 07/20/2024 Travel 07/20/2024 9:30 AM EDT Treatment [facility] OP Physical Therapy [address] [place] [phone] Murali Bear, PT Status post left knee replacement with ANNA (Primary Dx) 07/18/2024 Refill [facility] - [address] [phone] Fausto Nieves MD 07/15/2024 Travel 07/15/2024 8:48 PM EDT - 07/15/2024 11:00 PM EDT Emergency [facility] Emergency Department [address] [place] [address] Patti English MD Nausea with vomiting (Primary Dx); Diarrhea; Viral infection; Nausea and vomiting, unspecified vomiting type; Diarrhea, unspecified type Discharge Disposition: Home or Self Care 07/13/2024 Travel 07/13/2024 10:15 AM EDT Treatment [facility] OP Physical Therapy [address] [place] [phone] Murali Bear, PT Status post left knee replacement with ANNA (Primary Dx) 07/06/2024 10:05 AM EDT Ancillary Procedure [facility] [address] [phone] Fausto Nieves MD 07/06/2024 Travel 07/06/2024 9:00 AM EDT Treatment [facility] OP Physical Therapy [address] [place], [place] [phone] Fausto Nieves MD Holbrook, Jayse, [employer]UM[employer]ING W[employer]HOUSE HELPER Status post left knee replacement with ANNA 07/06/2024 10:00 AM EDT Office Visit [facility] [address] [phone] Fausto Nieves MD S/P total knee arthroplasty, left (Primary Dx) 07/02/2024 10:30 AM EDT Office Visit [address] [phone] Ermias Obando PA-C S/P total knee arthroplasty, left DOS 06/21/2024 06/30/2024 Telephone [facility] Medical Surgical Unit [address] [place] [phone] Lorin Paez RN Post-Op Follow-up 06/29/2024 Telephone [facility] [address] [address] [place] [address] Fausto Nieves MD ER VISIT 06/28/2024 Travel 06/28/2024 5:23 PM EDT - 06/28/2024 8:04 PM EDT Emergency [facility] Emergency Department [address] [place] [phone] Essence Michaud MD Acute pain of left knee (Primary Dx) Discharge Disposition: Home or Self Care 06/23/2024 Travel 06/23/2024 8:45 AM EDT Evaluation [facility] OP Physical Therapy [address] [place] [address] Murali Bear, PT Status post left knee replacement with ANNA (Primary Dx) 06/21/2024 6:06 AM EDT - 06/22/2024 1:30 PM EDT Hospital Encounter [facility] Medical Surgical Unit [address] [place] [phone] Fausto Nieves MD Status post left knee replacement with ANNA (Primary Dx); Traumatic arthritis of left knee Discharge Disposition: Home or Self Care 06/21/2024 7:29 AM EDT Anesthesia Event [facility] Operating Room [address] [place] [phone] Moe Francois, Beatriz Mabry CRNA 06/21/2024 Travel 06/21/2024 7:30 AM EDT - 06/21/2024 9:44 AM EDT Surgery [facility] Operating Room [address] [place] [phone] Fausto Nieves MD ARTHROPLASTY, KNEE, ROBOT-ASSISTED 06/17/2024 Surgery Prep [facility] - [address] [place] [phone] Sho Rain PA-C Traumatic arthritis of left knee (Primary Dx) 06/14/2024 Travel 06/14/2024 5:12 PM EDT - 06/14/2024 11:59 PM EDT Hospital Encounter [facility] CT Imaging [address] [place] [phone] Fausto Nieves MD History of arthroscopic knee surgery, Left; Traumatic arthritis of knee, left Discharge Disposition: Home or Self Care 06/08/2024 Travel 06/08/2024 11:00 AM EDT Hospital Encounter [facility] Respiratory Care [address] [place] [phone] Fausto Nieves MD Pre-op testing Discharge Disposition: Home or Self Care 06/08/2024 11:01 AM EDT - 06/08/2024 11:59 PM EDT Hospital Encounter [facility] Diagnostic Imaging [address] [place] [phone] Fausto Nieves MD Pre-op testing Discharge Disposition: Home or Self Care 06/08/2024 11:45 AM EDT Lab Patient Walk-In [facility] Lab [address] [place] [phone] Fausto Nieves MD Pre-op testing 06/08/2024 10:00 AM EDT Office Visit [address] [phone] Fausto Nieves MD History of arthroscopic knee surgery, Left (Primary Dx); Traumatic arthritis of knee, left; Pre-op testing; Traumatic arthritis of left knee 06/04/2024 9:35 AM EDT Ancillary Procedure [address] [phone] Ermias Obando PA-C 06/04/2024 9:30 AM EDT Office Visit [address] [phone] Ermias Obando PA-C History of arthroscopic knee surgery, Left (Primary Dx); Left knee pain; Traumatic arthritis of knee, left from Last 3 Months Allergies Active Allergy Reactions Criticality Noted Date [...] Traumatic arthritis of left knee 06/08/2024 06/21/2024 Social History Tobacco Use Types Packs/Day Years Used Date Smoking Tobacco: Never Smokeless Tobacco: Never Tobacco Cessation:Counseling Given: Not Answered Alcohol Use Standard Drinks/Week Comments Not Currently 0 (1 standard drink = 0.6 oz pur e alcohol) Utilities Answer Date Recorded In the past 12 months, has t he [employer], gas, oil, or water [employer] threatened to shut off services in your [...] Do you speak a language other than Mauritanian at [facility]? No 06/21/2024 Do you want help [...] Description 07/28/2024 10:15 AM EDT Treatment [facility] OP Physical Therapy [address] [place] [phone] Du You PTA 07/30/2024 10:15 AM EDT Treatment [facility] OP Physical Therapy [address] [place] [phone] Du You, PLUM[employer]ING W[employer]HOUSE HELPER 09/07/2024 10:00 AM EDT Office Visit [facility] - [address] [phone] Fausto Nieves MD [address] [place] [address] Medical Devices Implanted Type Area Drawing Tender Device Identifier Shelf Expiration Date Model / Serial / Lot Comp Triathlon Tib Trita Sz3 5536-B-300 - [id number] Implanted:Qt y: 1 on 06/21/2024 by Fausto Nieves MD at [facility] TOTAL JOINT CONSTRUCT Left: Knee LEANDER:[employer] [id number] 10/06/2028 5536-B-30 0 / / [id number] Patella Press Fit Tritanium 5552-L-299 - [id number] Implanted:Qt y: 1 on 06/21/2024 by Fausto Nieves MD at [facility] TOTAL JOINT [employer]STRU[employer] Left: Knee LEANDER:[employer] [id number] 02/17/2029 5552-L-29 9 / / [id number] Comp Fem P/A Cr Beaded Sz3 L 5517-F-301 - [id number] Implanted:Qt y: 1 on 06/21/2024 by Fausto Nieves MD at [facility] TOTAL JOINT CONSTRUCT Left: Knee LEANDER:[employer] [id number] 02/07/2029 5517-F-30 1 / / [id number] Insrt Tib Bearing #3 10mm 2044-R-073-E - [id number] Implanted:Qt y: 1 on 06/21/2024 by Fausto Nieves MD at [facility] TOTAL JOINT CONSTRUCT Left: Knee LEANDER:[employer] [id number] 11/22/2028 5531-G-31 0-E / / [id number] Loop Recorder Explanted Type Area Drawing Tender Device Identifier Shelf Expiration Date Model / Serial / Lot Pin Bone [id number] Strl [id number] - [id number] Explanted:Qty: 1 on 06/21/2024 at [facility] IMPLANTS Left: Knee LEANDER:[employer] 02/25/2029 [id number] / / [id number] Pin Bone [id number] Strl [id number] - [id number] Explanted:Qty: 1 on 06/21/2024 at [facility] IMPLANTS Left: Knee LEANDER:[employer] 03/10/2029 [id number] / / [id number] Procedures Procedure Name Priority Date/Time Associated Diagnosis [...] ANESTHESIA INTUBATION Routine 06/21/2024 7:37 AM EDT OH ARTHRP KNE CONDYLE&PLATU MEDIAL&LAT COMPARTMENTS 06/21/2024 7:29 AM EDT Traumatic arthritis of left knee Case Notes 0630Adhesive allergy TISSUE EXAM [facility] AP Routine 06/21/2024 7:13 AM EDT Traumatic [...] Color, UA Straw 07/15/2024 10:39 PM EDT [facility] Clarity, UA Clear 07/15/2024 10:39 PM EDT [facility] Specific [place], UA 1.020 1.002 - 1.030 07/15/2024 10:39 PM EDT [facility] pH, UA 6.0 5.0 - 9.0 07/15/2024 10:39 PM EDT [facility] Leukocytes, UA Negative Negative 07/15/2024 10:39 PM EDT [facility] Nitrite, UA Negative Negative 07/15/2024 10:39 PM EDT [facility] Protein, UA Negative Negative 07/15/2024 10:39 PM EDT [facility] Glucose, UA Negative Negative 07/15/2024 10:39 PM EDT [facility] Ketones, UA Negative Negative 07/15/2024 10:39 PM EDT [facility] Bilirubin, UA Negative Negative 07/15/2024 10:39 PM EDT [facility] Blood, UA Negative Negative 07/15/2024 10:39 PM EDT [facility] Urobilinogen, UA 0.2 mg/dL Normal 07/15/2024 10:39 PM EDT [facility] Specimen Source Urine, Clean Catch 07/15/2024 10:39 PM EDT [facility] Urine URINE SPECIMEN COLLECTION, CLEAN CATCH / Unknown 07/15/2024 10:18 PM EDT 07/15/2024 10:25 PM EDT us Patti English MD URINE ORDERABLES Final Result [facility] [address] [id number], [facility] [phone] * (ABNORMAL) CBC with Auto Diff (07/15/2024 9:21 PM EDT) Only the most recent of3 resultswithin the time period is included. WBC 8.1 4.8 - 10.8 K/ L 07/15/2024 9:33 PM EDT [facility] RBC 4.14 3.50 - 5.20 M/ L 07/15/2024 9:33 PM EDT [facility] Hemoglobin 12.8 11.7 - 15.8 GM/DL 07/15/2024 9:33 PM EDT [facility] Hematocrit 38.1 35.0 - 47.0 % 07/15/2024 9:33 PM EDT [facility] MCV 92 81 - 101 fL 07/15/2024 9:33 PM EDT [facility] MCH 30.9 27.0 - 34.0 pg 07/15/2024 9:33 PM EDT [facility] MCHC 33.6 32.0 - 36.0 GM/DL 07/15/2024 9:33 PM EDT [facility] RDW 12.5 11.5 - 14.5 % 07/15/2024 9:33 PM EDT [facility] Platelets 323 150 - 400 K/CU MM 07/15/2024 9:33 PM EDT [facility] MPV 10.6 9.4 - 12.4 fL 07/15/2024 9:33 PM EDT [facility] Nucleated Red Blood Cell 0.0 0 - 0.2 % 07/15/2024 9:33 PM EDT [facility] % Neutros 54 37 - 80 % 07/15/2024 9:33 PM EDT [facility] % Lymphs 33 10 - 50 % 07/15/2024 9:33 PM EDT [facility] % Monos 7 5 - 13 % 07/15/2024 9:33 PM EDT [facility] % Eos 5 0 - 7 % 07/15/2024 9:33 PM EDT [facility] % Baso 1 0 - 3 % 07/15/2024 9:33 PM EDT [facility] NRBC Absolute <0.01 0 - 0.012 K/ul 07/15/2024 9:33 PM EDT [facility] # Neutros 4.39 2.00 - 6.90 K/ L 07/15/2024 9:33 PM EDT [facility] # Lymphs 2.70 0.60 - 3.40 K/ L 07/15/2024 9:33 PM EDT [facility] # Monos 0.53 0.00 - 0.90 K/ L 07/15/2024 9:33 PM EDT [facility] # Eos 0.42 0.00 - 0.70 K/ L 07/15/2024 9:33 PM EDT [facility] # Baso 0.04 0.00 - 0.20 K/ L 07/15/2024 9:33 PM EDT [facility] Immature Granulocytes-Re lative 0.40 % 07/15/2024 9:33 PM EDT [facility] # IG 0.03(H) 0.00 - 0.00 K/uL 07/15/2024 9:33 PM EDT [facility] Blood Venipuncture / Unknown 07/15/2024 9:21 PM EDT 07/15/2024 9:31 PM EDT Narrative [facility] - 07/15/2024 9:33 PM EDT [...] ORDERABLES Final Resu lt Performing Organization Address City/[facility]/ZIP Co de Phone Number [facility] [address] [place] [address] * Lipase (07/15/2024 9:21 PM EDT) Lipase 18 16 - 77 U/L 07/15/2024 9:55 PM EDT [facility] Blood Venipuncture / Unknown 07/15/2024 9:21 PM EDT 07/15/2024 9:31 PM EDT Patti English MD LAB BLOOD ORDERABLES Final Resu lt Performing Organization Address [facility]/ZIP Co de Phone Number [facility] [address] [place] [address] * (ABNORMAL) Hepatic function panel (07/15/2024 9:21 PM EDT) Pathologist [facility] Protein, Total 7.4 6.4 - 8.2 gm/dL 07/15/2024 9:55 PM EDT [facility] Albumin 3.5 3.4 - 5.0 g/dL 07/15/2024 9:55 PM EDT [facility] Total Bilirubin 0.3 0.2 - 1.0 mg/dL 07/15/2024 9:55 PM EDT [facility] Bilirubin, Direct 0.1 0.1 - 0.2 mg/dL 07/15/2024 9:55 PM EDT [facility] Alkaline Phosphatase 128(H) 46 - 116 U/L 07/15/2024 9:55 PM EDT [facility] Globulin 3.9 g/dL 07/15/2024 9:55 PM EDT [facility] A/G Ratio 0.9 07/15/2024 9:55 PM EDT [facility] AST 20 15 - 37 U/L 07/15/2024 9:55 PM EDT [facility] Comment:Victorious has become aware of sulfasalazine and sulfapyridine [...] - 78 U/L 07/15/2024 9:55 PM EDT [facility] Comment:Victorious has become aware of sulfasalazine and sulfapyridine [...] MD LAB BLOOD ORDERABLES Final Resu lt [facility] [address] [place] [address] * (ABNORMAL) Basic Metabolic Panel (07/15/2024 9:21 PM EDT) Sodium 135(L) 136 - 145 meq/L 07/15/2024 9:55 PM EDT [facility] Potassium 3.7 3.5 - 5.1 meq/L 07/15/2024 9:55 PM EDT [facility] Chloride 103 98 - 107 meq/L 07/15/2024 9:55 PM EDT [facility] CO2 26 21 - 32 meq/L 07/15/2024 9:55 PM EDT [facility] Anion Gap 10(L) 11 - 22 07/15/2024 9:55 PM EDT [facility] BUN 8 7 - 18 mg/dL 07/15/2024 9:55 PM EDT [facility] Creatinine 1.01 0.55 - 1.10 mg/dL 07/15/2024 9:55 PM EDT [facility] BUN/Creatinine 8 07/15/2024 9:55 PM EDT [facility] Glucose 113(H) 70 - 99 mg/dL 07/15/2024 9:55 PM EDT [facility] Calcium 8.9 8.5 - 10.1 mg/dL 07/15/2024 9:55 PM EDT [facility] Osmolality Calc 269.2 mOsm/kg 9:55 PM EDT [facility] eGFR (mL/min/1.73m2) >60 >=60 mL/min/1.7 3m2 07/15/2024 9:55 PM EDT [facility] Comment:eGFR of <60 suggests chronic kidney disease if found over a 3 month period of time. eGFR <15 indicates renal failure. Blood Venipuncture / Unknown 07/15/2024 9:21 PM EDT 07/15/2024 9:31 PM EDT us Patti English MD LAB BLOOD ORDERABLES Final Resu lt [facility] [address] [place] [address], [facility] [phone] * XR knee 1 or 2 views [...] Murphy. Transcribed by Estefania Quinteros. Melvin Yee MACHINE III COREMAKER CV VASCULAR ORDERABLE S Final Result * Lactic Acid with reflex (SJ) (06/28/2024 5:32 PM EDT) Lactic Acid Level (mmol/L) 0.9 0.4 - 2.0 mmol/L 06/28/2024 6:03 PM EDT [facility] Comment:If a Lactic Acid Lev el with Reflex if Indicated result is greater than 2.0, a Lactic Acid Level will be ordered to be collected 2 hours after the original collection time. Blood Venipuncture / Unknown 06/28/2024 5:32 PM EDT 06/28/2024 5:37 PM EDT us Melvin Bocanegraarmani MACHINE III COREMAKER LAB BLOOD ORDERABLES Final Result Performing Organization Address [facility]/ZIP Co de Phone Number [facility] [address] [place] [address] * (ABNORMAL) C-Reactive Protein (06/28/2024 5:32 PM EDT) CRP 4.44(H) 0.05 - 0.25 mg/dL 06/28/2024 6:08 PM EDT [facility] Blood Venipuncture / Unknown 06/28/2024 5:32 PM EDT 06/28/2024 5:37 PM EDT [facility] BLOOD ORDERABLES Final Result Performing Organization Address [facility] de Phone Number [facility] [address] [place] [address] * (ABNORMAL) Comprehensive metabolic panel (06/28/2024 5:32 PM EDT) Only the most recent of2 resultswithin the time period is included. Sodium 139 136 - 145 meq/L 06/28/2024 6:08 PM EDT [facility] Potassium 4.6 3.5 - 5.1 meq/L 06/28/2024 6:08 PM EDT [facility] Chloride 106 98 - 107 meq/L 06/28/2024 6:08 PM EDT [facility] CO2 25 21 - 32 meq/L 06/28/2024 6:08 PM EDT [facility] Calcium 9.0 8.5 - 10.1 mg/dL 06/28/2024 6:08 PM EDT [facility] Glucose 90 70 - 99 mg/dL 06/28/2024 6:08 PM EDT [facility] BUN 14 7 - 18 mg/dL 06/28/2024 6:08 PM EDT [facility] Creatinine 0.87 0.55 - 1.10 mg/dL 06/28/2024 6:08 PM EDT [facility] BUN/Creatinine 16 06/28/2024 6:08 PM EDT [facility] Albumin 3.1(L) 3.4 - 5.0 g/dL 06/28/2024 6:08 PM EDT [facility] Alkaline Phosphatase 102 46 - 116 U/L 06/28/2024 6:08 PM EDT [facility] ALT 32 12 - 78 U/L 06/28/2024 6:08 PM EDT [facility] AST 42(H) 15 - 37 U/L 06/28/2024 6:08 PM EDT [facility] Total Bilirubin 0.7 0.2 - 1.0 mg/dL 06/28/2024 6:08 PM EDT [facility] Protein, Total 7.3 6.4 - 8.2 gm/dL 06/28/2024 6:08 PM EDT [facility] Anion Gap 13 11 - 22 06/28/2024 6:08 PM EDT [facility] A/G Ratio 0.7 06/28/2024 6:08 PM EDT [facility] Globulin 4.2 g/dL 06/28/2024 6:08 PM EDT [facility] Osmolality Calc 277.5 mOsm/kg 6:08 PM EDT [facility] eGFR (mL/min/1.73m2) >60 >=60 mL/min/1.7 3m2 06/28/2024 6:08 PM EDT [facility] Comment:ESTIMATED GFR IS NOT ACCURATE CREATININE CLEARANCE IN PREDICTING GLOMERULAR FILTRATION RATE. ESTIMATED GFR IS NOT APPLICABLE FOR DIALYSIS PATIENTS. Blood Venipuncture / Unknown 06/28/2024 5:32 PM EDT 06/28/2024 5:37 PM EDT us Melvin Yee MACHINE III COREMAKER LAB BLOOD ORDERABLES Final Result [facility] [address] [place] [id number] [phone] * (ABNORMAL) Hemoglobin and Hematocrit (06/22/2024 3:45 AM EDT) Hemoglobin 11.6(L) 11.7 - 15.8 GM/DL 06/22/2024 4:09 AM EDT [facility] Hematocrit 34.7(L) 35.0 - 47.0 % 06/22/2024 4:09 AM EDT [facility] Blood Venipuncture / Unknown 06/22/2024 3:45 AM EDT 06/22/2024 3:57 AM EDT us Fausto Nieves MD LAB BLOOD ORDERABLES Final Res ult [facility] [address] [phone] * AN SINGLE LUMEN INTUBATION (06/21/2024 7:40 AM EDT) Narrative Moe Francois CRNA - 06/21/2024 7:40 AM EDT Moe [...] SINGLE LUMEN INTUBATION (06/21/2024 7:37 AM EDT) Narrative Moe Francois CRNA - 06/21/2024 7:37 AM EDT Moe [...] a few minutes. Tidal volumes <200 with [id number] peak pressure, SpO2 started to taper down, reached 93%. Rocuronium IV then intubated successfully, see additional intubation note Moe Francois CRNA ANESTHESIA ORDERABLES Final Result * Tissue Exam (06/21/2024 7:13 AM EDT) AP RESULT See Note: [facility] Comment: [facility] [address] [place] [address] or [phone] Noe Fuentes M.D., Hemstitcher PATIENT NAME LABORATORY NO. [id number]. [id number] AGE SEX SSN CLIENT REF # [place] [id number] 1975 F [id number] MARCIA REQUESTING Emigdio ATTENDING Emigdio COPY TO[address] [place] [address] DATE COLLECTED DATE RECEIVED DATE REPORTED 06/21/2024 06/21/2024 06/22/2024 DIAGNOSIS: A. BONE FRAGMENTS, GROSS ONLY, LEFT KNEE: GROSS DIAGNOSIS: Changes consistent with osteoarthritis B. HARDWARE, LEFT KNEE: GROSS DIAGNOSIS: Consistent with explanted hardware BG/sm CLINICAL HISTORY: Traumatic arthropathy, left knee SPECIMENS RECEIVED: A. BONE FRAGMENTS, GROSS ONLY, LEFT KNEE B. HARDWARE, LEFT KNEE Professional interpretation rendered by Paramjit Roldan M.D., [place] at [facility], [address] [place] [address]. GROSS DESCRIPTION: A. Received in formalin labeled [...] AND ELECTRONICALLY SIGNED BY: Paramjit Roldan M.D., [place]. CPT CODES: [id number] Bone STRUCTURE OF LEFT KNEE REGION / Unknown 06/21/2024 7:13 AM EDT Biomedical device (physical object) STRUCTURE OF LEFT KNEE REGION / Unknown 06/21/2024 9:07 AM EDT Fausto Nieves MD PATHOLOGY/CYTOLOGY ORDERABLES Final Result [facility] [address] [place] [address] * HC PERIPHERAL NERVE BLOCK SINGLE SHOT [...] supine Prep: ChloraPrep Patient monitoring: heart rate, monitoring analyst and continuous pulse ox Block type: adductor [...] See attached images uploaded to MEDIA via [employer] ( due to [facility] not having an interface between the [facility] and Radiology). us Moe Francois PUBLIC ADDRESS SYSTEM MECHANIC ANESTHESIA ORDERABLES Final Result * CT lower [...] ATRIAL RATE (MCT) 46 BPM GE MUSE OH Interval 206 ms GE MUSE QRS-INTERVAL (MSEC) 96 ms GE MUSE QT Interval 496 ms GE MUSE QTC Interval 434 ms GE MUSE P [place] 54 degrees GE MUSE R AXIS (MCT) 20 degrees GE MUSE T Wave [place] 21 degrees GE MUSE [place]bins Diagnosis Sinus bradycardia Otherwise normal ECG No previous ECGs available Confirmed by Emigdio CRUZ, NOE ([id number]) on 06/08/2024 11:45:34 AM GE MUSE 06/08/2024 11:2 7 AM EDT 06/08/2024 11:45 AM EDT us Fausto Nieves MD ECG ORDERABLES Final Result Performing Organization Address City/[facility]/ZIP Co de Phone Number GE MUSE * MRSA Screen (06/08/2024 11:13 AM EDT) Pathologist [facility] MRSA by PCR [facility] MRSA Not Detected by PCR MRSA Not Detected by PCR DEVICE [id number] 06/08/2024 5:03 PM EDT [facility] Nasal BOTH ANTERIOR NARES / Unknown 06/08/2024 11:13 AM EDT 06/08/2024 11:40 AM EDT Fausto Nieves MD MICROBIOLOGY - GENERAL ORDERAB LES Final Result Performing Organization Address [facility] Co de Phone Number [facility] [address] [phone] * X-ray chest PA and lateral (06/08/2024 [...] Final Result from Last 3 Months Insurance [id number] (Home) [address] [place] [address] [facility] MEDICAID Advance Directives For more information, please contact: [phone] * Full Code (Latest Code Status on File) Date Activated Date Inactivated Comments 06/21/2024 9:24 AM 06/22/2024 2:30 PM * Full Code Date Activated Date Inactivated Comments 06/21/2024 5:31 AM 06/21/2024 9:24 AM Care Teams Fixture Maker Relationship Specialty Start Date End Date Gurjit Mena MD [address] [place] [address] PCP - General Family Medicine 06/17/24 Fausto Nieves MD [address] [place] [address] Orthopedic Surgery 06/30/24
--- OUTSIDE RECORDS SUMMARY | 2024-07-27 13:15 | XMS_ITS | Encounter Summary ---
Author Organization [employer] Address [address] [place] [address] Care Team Providers Care Licensed Guide Name Role Phone Gurjit Mena MD Primary Care Provider [phone]- [phone] Fausto Nieves MD Unavailable [phone] Encounter Details Date Type Department Care Team (Latest Contact Info) Description 07/13/2024 Travel Social History Tobacco Use Types Packs/Day [...] Never 06/21/2024 How often does anyone, tasia jeewll family and friends, scream or curse at [...] Do you speak a language other than Guatemalan at [facility]? No 06/21/2024 Do you want help [...] 10:15 AM EDT Treatment [facility] OP Physical Therapy [address] [place] [phone] Du You, SILK SCREEN PRINTER HELPER 07/30/2024 10:15 AM EDT Treatment [facility] OP Physical Therapy [address] [place] [phone] Du You, SILK SCREEN PRINTER HELPER 09/07/2024 10:00 AM EDT Office Visit [facility] Orthopedics - [address] [phone] Fausto Nieves MD [address] [place] [address] documented as of this encounter Visit Diagnoses Not on filedocumented in this encounter Care Teams Licensed Guide Relationship Specialty Start Date End Date Gurjit Mena MD [address] [place] [address] PCP - General Family Medicine 06/17/24 Fausto Nieves MD [address] [place] [address] Orthopedic Surgery 06/30/24 documented as of this encounter
--- OUTSIDE RECORDS SUMMARY | 2024-07-27 13:15 | XMS_ITS | Encounter Summary ---
Author Organization [employer] Address [address] [place] [address] Care Team Providers Care Meter Supervisor Name Role Phone Marlo Leonardo Primary Care Provider [phone] Encounter Details Date Type Department Care Team (Latest Contact Info) Description 06/14/2024 Travel Social History Tobacco Use Types Packs/Day [...] Date Darrian rded Speak language other than Lao at home Not on file 03/01/2023 Want [...] Info) Description 07/28/2024 10:15 AM EDT Treatment [facility] OP Physical Therapy [address] [place] [phone] Du You, GLASS DESIGNER 07/30/2024 10:15 AM EDT Treatment [facility] OP Physical Therapy [address] [place] [phone] Du You, GLASS DESIGNER 09/07/2024 10:00 AM EDT Office Visit [facility] Orthopedics - [address] [phone] Fausto Nieves MD [address] [place] [address] documented as of this encounter Visit Diagnoses Not on filedocumented in this encounter Care Teams Meter Supervisor Relationship Specialty Start Date End Date Marlo Leonardo [address] [place] [address] PCP - General 12/20/22 06/16/24 documented as of this encounter
--- OUTSIDE RECORDS SUMMARY | 2024-07-27 13:15 | XMS_ITS | Encounter Summary ---
Author Organization [employer] Address [address] [place] [address] Care Team Providers Care Route Carrier Name Role Phone Gurjit Mena MD Primary Care Provider [phone]- [phone] Encounter Details Date Type Department Care Team (Latest Contact Info) Description 06/28/2024 Travel Social History Tobacco Use Types Packs/Day [...] Do you speak a language other than Belgian at [facility]? No 06/21/2024 Do you want help [...] [facility] OP Physical Therapy [address] [place] [phone] Du You, LOCAL FLATBED DRIVER 07/30/2024 10:15 AM EDT Treatment [facility] OP Physical Therapy [address] [place] [phone] Du You, LOCAL FLATBED DRIVER 09/07/2024 10:00 AM EDT Office Visit [facility] Orthopedics - [address] [phone] Fausto Nieves MD [address] [place] [address] documented as of this encounter Visit Diagnoses Not on filedocumented in this encounter Care Teams Route Carrier Relationship Specialty Start Date End Date Gurjit Mena MD [address] [place] [address] PCP - General Family Medicine 06/17/24 documented as of this encounter
--- OUTSIDE RECORDS SUMMARY | 2024-07-27 13:15 | XMS_ITS | Encounter Summary ---
Author Organization [employer] Address [address] [place] [address] Care Team Providers Care Industrial Custodian Name Role Phone Gurjit Mena MD Primary Care Provider [phone]- [phone] Encounter Details Date Type Department Care Team (Latest Contact Info) Description 06/23/2024 Travel Social History Tobacco Use Types Packs/Day [...] Do you speak a language other than Polish at [facility]? No 06/21/2024 Do you want [...] Info) Description 07/28/2024 10:15 AM EDT Treatment [facility] OP Physical Therapy [address] [place] [phone] Du You, CITY BAILIFF 07/30/2024 10:15 AM EDT Treatment [facility] OP Physical Therapy [address] [place] [phone] Du You, CITY BAILIFF 09/07/2024 10:00 AM EDT Office Visit [facility] Orthopedics - [address] [phone] Fausto Nieves MD [address] [place] [address] documented as of this encounter Visit Diagnoses Not on filedocumented in this encounter Care Teams Industrial Custodian Relationship Specialty Start Date End Date Gurjit Mena MD [address] [place] [address] PCP - General Family Medicine 06/17/24 documented as of this encounter
--- OUTSIDE RECORDS SUMMARY | 2024-07-27 13:15 | XMS_ITS | Encounter Summary ---
Author Organization [employer] Address [address] [place] [address] Care Team Providers Care Route Delivery Driver Name Role Phone Gurjit Mena MD Primary Care Provider [phone] Fausto Nieves MD Unavailable [phone] Encounter Details Date Type Department Care Team (Latest Contact Info) Description 07/15/2024 Travel Social History Tobacco Use Types Packs/Day [...] Do you speak a language other than Macedonian at [facility]? No 06/21/2024 Do you want [...] Info) Description 07/28/2024 10:15 AM EDT Treatment [facility] OP Physical Therapy [address] [place] [phone] Du You, AEGIS CONSOLE OPERATOR TRACK 07/30/2024 10:15 AM EDT Treatment [facility] OP Physical Therapy [address] [place] [phone] Du You, AEGIS CONSOLE OPERATOR TRACK 09/07/2024 10:00 AM EDT Office Visit [facility] Orthopedics - [address] [phone] Fausto Nieves MD [address] [place] [address] documented as of this encounter Visit Diagnoses Not on filedocumented in this encounter Care Teams Route Delivery Driver Relationship Specialty Start Date End Date Gurjit Mena MD [address] [place] [address] PCP - General Family Medicine 06/17/24 Fausto Nieves MD [address] [place] [address] Orthopedic Surgery 06/30/24 documented as of this encounter
--- OUTSIDE RECORDS SUMMARY | 2024-07-27 13:15 | XMS_ITS | Encounter Summary ---
Author Organization [employer] Address [address] [place] [address] Care Team Providers Care Fundraising Sale Representative Name Role Phone Gurjit Mena MD Primary Care Provider [phone] Encounter Details Date Type Department Care Team (Late st Contact Info) Description 06/17/2024 Surgery Prep [facility] Orthopedics - [address] [place] [address] Sho Rain PA-C [address] [place] [address] Traumatic arthritis of left knee (Primary Dx) Social History Tobacco Use Types [...] Date Darrian rded Speak language other than Bhutanese at home Not on file 03/01/2023 Want [...] on file documented as of this encounter H&P Notes * Sho Rain PA-C - 06/17/2024 10:08 AM EDT NAME: Ran Ayala CSN: [id number] : 1975 PCP: Gurjit Mena MD REASON FOR VISIT No chief complaint on file. HPI Ran Ayala is a 48 y.o. [...] your prescription refills for excessive abuse or residential use. If necessary, you will be referred to paint spraying machine operator helper. We will monitor your use of scheduled drugs through the KD program. In addition, we will follow the monitoring procedures required by the [facility]. The side effects of Schedule II controlled [...] ones ones. Weight loss advised: Weight Loss Plan for patient: Discussed the following: decrease caloric intake, begin low impact exercises, and incorporate healthy lifestyle measures. Advised to consult primary care provider prior to making changes. Discussed surgical intervention for weight loss but deferred referral to primary care provider juli if patient is a good candidate for [...] PA-C scribing for Fausto Nieves MD I, Anup S. Chattha, MD, have read and agree with the documentation that has been completed regarding this visit. By signing this record, I attest that the documentation was completed in my physical presence and is an accurate record of the encounter. Electronically Signed, Fausto Nieves MD 06/17/2024 10:57 AM EDT Schuyler Stewart: [...] member). Cosigned by Fausto Nieves MD at 06/18/2024 4:10 PM EDT documented in this encounter Plan of Treatment Upcoming Encounters Date Type Department Care Team (Late st Contact Info) Description 07/28/2024 10:15 AM EDT Treatment [facility] OP Physical Therapy [address] [place] [phone] Du You, BUS PERSON 07/30/2024 10:15 AM EDT Treatment [facility] OP Physical Therapy [address] [place] [phone] Du You, BUS PERSON 09/07/2024 10:00 AM EDT Office Visit [facility] Orthopedics - [address] [phone] Fausto Nieves MD [address] [place] [address] documented as of this encounter Visit Diagnoses Diagnosis Traumatic arthritis of left knee- Primary documented in this encounter Care Teams Fundraising Sale Representative Relationship Specialty Start Date End Date Gurjit Mena MD [address] [facility] [place] [address] PCP - General Family Medicine 06/17/24 documented as of this encounter
--- OUTSIDE RECORDS SUMMARY | 2024-07-27 13:15 | XMS_ITS | Encounter Summary ---
Author Organization [employer] Address [address] [place] [address] Care Team Providers Care Broiler Supervisor Name Role Phone Gurjit Mena MD Primary Care Provider [phone] Fausto Nieves MD Unavailable [phone] Encounter Details Date Type Department Care Team (Latest Contact Info) Description 07/06/2024 Travel Social History Tobacco Use Types Packs/Day [...] does anyone, tasia jeewll family and friends, threaten you with harm? [...] Do you speak a language other than Grenadian at [facility]? No 06/21/2024 Do you want [...] Description 07/28/2024 10:15 AM EDT Treatment [facility] OP Physical Therapy [address] [place] [phone] Du You, RADIAL ARM SAW OPERATOR 07/30/2024 10:15 AM EDT Treatment [facility] OP Physical Therapy [address] [place] [phone] Du You, RADIAL ARM SAW OPERATOR 09/07/2024 10:00 AM EDT Office Visit [facility] Orthopedics - [address] [phone] Fausto Nieves MD [address] [place] [address] documented as of this encounter Visit Diagnoses Not on filedocumented in this encounter Care Teams Broiler Supervisor Relationship Specialty Start Date End Date Gurjit Mena MD [address] [place] [address] PCP - General Family Medicine 06/17/24 Fausto Nieves MD [address] [place] [address] Orthopedic Surgery 06/30/24 documented as of this encounter
--- OUTSIDE RECORDS SUMMARY | 2024-07-27 13:15 | XMS_ITS | Encounter Summary ---
Author Organization [employer] Address [address] [place] [address] Care Team Providers Care Real Time Analyst Name Role Phone Gurjit Mena MD Primary Care Provider [phone]- [phone] Encounter Details Date Type Department Care Team (Latest Contact Info) Description 06/21/2024 Travel Social History Tobacco Use Types Packs/Day [...] speak a language other than Croatian at [facility]? No 06/21/2024 Do you [...] Info) Description 07/28/2024 10:15 AM EDT Treatment [facility] OP Physical Therapy [address] [place] [phone] Du You, TIE TAMPER 07/30/2024 10:15 AM EDT Treatment [facility] OP Physical Therapy [address] [place] [phone] Du You, TIE TAMPER 09/07/2024 10:00 AM EDT Office Visit [facility] Orthopedics - [address] [phone] Fausto Nieves MD [address] [place] [address] documented as of this encounter Visit Diagnoses Not on filedocumented in this encounter Care Teams Real Time Analyst Relationship Specialty Start Date End Date Gurjit Mena MD [address] [place] [address] PCP - General Family Medicine 06/17/24 documented as of this encounter
--- OUTSIDE RECORDS SUMMARY | 2024-07-27 13:16 | XMS_ITS | Encounter Summary ---
Author Organization [employer] Address [address] [address] Care Team Providers Care Chief Power Dispatcher Name Role Phone Marlo Leonardo Primary Care Provider [phone] Encounter Details Date Type Department Care Team (Latest Contact Info) Description 06/08/2024 Travel Social History Tobacco Use Types Packs/Day [...] Date Darrian rded Speak language other than Liberian at home Not on file 03/01/2023 Want [...] Info) Description 07/28/2024 10:15 AM EDT Treatment [facility] OP Physical Therapy [address] [place] [phone] Du You, TABLE HAND 07/30/2024 10:15 AM EDT Treatment [facility] OP Physical Therapy [address] [place] [phone] Du You, TABLE HAND 09/07/2024 10:00 AM EDT Office Visit [facility] Orthopedics - [address] [phone] Fausto Nieves MD [address] [place] [address] documented as of this encounter Visit Diagnoses Not on filedocumented in this encounter Care Teams Chief Power Dispatcher Relationship Specialty Start Date End Date Marlo Leonardo [address] [place] [address] PCP - General 12/20/22 06/16/24 documented as of this encounter
--- NOTE | 2024-07-27 13:30 | US_ITS ---
FINAL REPORT TECHNIQUE: Sonographic images of the thyroid were obtained. CLINICAL HISTORY: One year follow-up, history of partial thyroidectomy COMPARISON: 01/05/2024 FINDINGS: THYROID ULTRASOUND The patient is status post right thyroidectomy. The left thyroid gland measures 4.2 x 1.6 x 1.6 cm. There are several nodules in the left lobe of the thyroid. The nodule in the superior left lobe measures 1.0 cm, previously measured 1.0 cm, stable. This is solid, TI-RADS 4. There is a second nodule which measures 1.2 cm, hypoechoic, solid, TI-RADS 4. This is slightly smaller than on the previous exam. There are no new nodules. IMPRESSION: Multinodular goiter with the dominant lesion being stable or smaller than previous, TI-RADS 4. Recommend follow-up ultrasound in 1 year. Reviewed, Interpreted and Dictated by Kiet Donovan MD Transcribed by Lauren Paniagua Authenticated and [facility]
== END 2024-07-27 23:59 | disposition home or self-care (01) ==
LOC: RAD 13:06
PROVIDERS: PCP Family Medicine; Visit Provider Nurse Practitioner
DX: E04.2 Nontoxic multinodular goiter (principal)
CPT/HCPCS: 76536

== ENCOUNTER 2024-08-01 20:58 | Emergency (ER) | payer MEDICAID, SELFPAY ==
--- OUTSIDE RECORDS SUMMARY | 2024-06-04 09:30 | XMS_ITS | Encounter Summary ---
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 NAME: Ran Ayala CSN: [id number] : 1975 PCP: Marlo Leonardo REASON FOR [...] Signed, Ermias Obando PA-C 06/04/2024 10:30 AM SANCHEZT Schuyler Stewart: Jean-Paul RANDOLPH / FLACO is [...] Care Team (Late st Contact Info) Description 08/02/2024 10:15 AM EDT Treatment [facility] OP Physical Therapy [address] [place] [phone] Du You, APPLICATION DEVELOPMENT LIAISON 08/06/2024 10:15 AM EDT Treatment [facility] OP Physical Therapy [address] [place] [phone] KenyattaDu flowers, APPLICATION DEVELOPMENT LIAISON 09/07/2024 10:00 AM EDT Office Visit [facility] Orthopedics - [address] [phone] Fausto Nieves MD [address] [place] [address] documented as of this encounter Procedures Procedure [...] by Ermias Obando PA-C in office today. Narrative 06/04/2024 [...] left documented in this encounter Care Teams Bean Viner Relationship Specialty Start Date End Date Marlo Leonardo [address] [place] [address] PCP - General 12/20/22 06/16/24 documented as of this encounter
--- OUTSIDE RECORDS SUMMARY | 2024-06-04 09:35 | XMS_ITS | Encounter Summary ---
Author Organization [employer] Address [address] [place] [address] Care Team Providers Care Bilingual Medical Assistant Name Role Phone Marlo Leonardo Primary Care Provider [phone] Encounter Details Date Type Department Care Team (Late st Contact Info) Description 06/04/2024 9:35 AM EDT Ancillary Procedure [facility] Orthopedics - [address] [phone] Ermias Obando PA-C [address] [place] [phone] Social History Tobacco Use Types Packs/Day Years [...] Date Darrian rded Speak language other than Mauritian at home Not on file 03/01/2023 Want [...] Info) Description 08/02/2024 10:15 AM EDT Treatment [facility] OP Physical Therapy [address] [place] [phone] Du You, TANBARK PEELER 08/06/2024 10:15 AM EDT Treatment [facility] OP Physical Therapy [address] [place] [phone] Du You, TANBARK PEELER 09/07/2024 10:00 AM EDT Office Visit [facility] Orthopedics - [address] [phone] Fausto Nieves MD [facility] [place] [address] documented as of this encounter Procedures Procedure [...] on filedocumented in this encounter Care Teams Bilingual Medical Assistant Relationship Specialty Start Date End Date Malissa Marlo [address] [place] [address] PCP - General 12/20/22 06/16/24 documented as of this encounter
--- OUTSIDE RECORDS SUMMARY | 2024-06-08 10:00 | XMS_ITS | Encounter Summary ---
Author Organization [employer] Address [address] [place] [address] Care Team Providers Care Box Toe Buffer Name Role Phone Marlo Leonardo Primary Care Provider [phone] Reason for Referral * Diagnostic X-Ray (Routine) - Closed Specialty Diagnoses / Procedures Referred By William mata Referred To Contact Radiology Diagnoses Pre-op testing Procedures X-ray chest PA and lateral Fausto Nieves MD [address] [place] [phone] Phone: tel: fax: [facility] Diagnostic [facility] [address] [place] [phone] Phone: tel: fax: Referral ID Status Reason Start Date Expiration Date V isits Requested Visits Authorized [id number] Closed Continuity of Care 06/08/2024 06/08/2025 1 1 * Other (Routine) - New Request Specialty Diagnoses / Procedures Referred By William mata Referred To Contact Diagnoses Pre-op testing Procedures ECG 12 lead Fausto Nieves MD [address] [place] [phone] Phone: tel: fax: Referral ID Status Reason Start Date Expiration Date V isits Requested Visits Authorized [id number] New Request 06/08/2024 06/08/2025 1 1 * CAT Scan (Routine) - Closed Specialty Diagnoses / Procedures Referred By Contac t Referred To Contact Radiology Diagnoses History of arthroscopic knee surgery Traumatic arthritis of knee, left Procedures CT lower extremity without IV contrast left Fausto Nieves MD [address] [place] [address] Phone: tel: fax: [facility] CT Imaging [address] [place] [address] Phone: tel: fax: Referral ID Status Reason Start Date Expiration Date V isits Requested Visits Authorized [id number] Closed Continuity of Care 06/08/2024 09/06/2024 1 1 Reason for Visit * Reason Comments Knee Pain Discuss surgical opt ions for the Left Knee Encounter Details Date Type Department Care Team (Late st Contact Info) Description 06/08/2024 10:00 AM EDT Office Visit [facility] Orthopedics - [address] [phone] Fausto Nieves MD [address] [place], [place] [phone] History of arthroscopic knee surgery, Left (Primary Dx); Traumatic arthritis of knee, left; Pre-op testing; Traumatic arthritis of left knee Social History Tobacco Use Types Packs/Day Years [...] Date Darrian rded Speak language other than Luxembourger at home Not on file 03/01/2023 Want [...] Sign Reading Time Taken Comments Blood Pressure 123/84 06/08/2024 9:43 AM EDT Pulse 65 06/08/2024 9:43 AM EDT Temperature - - Respiratory Rate - - Oxygen Saturation - - Inhaled Oxygen Concentration - - Weight 103.2 kg (227 lb 9.6 oz) 06/08/2024 9:43 AM EDT Height 160 cm (5' 3 ) 06/08/2024 9:43 AM EDT Body Mass Index 40.32 06/08/2024 9:43 AM EDT documented in this encounter Progress Notes * Fausto Nieves MD - 06/08/2024 10:00 AM EDT NAME: Ran Ayala CSN: [id number] : 1975 PCP: Marlo Leonardo REASON FOR VISIT Knee Pain (Discuss surgical options for the Left Knee) HPI Ran Ayala is a 48 y.o. female Patient presents today to discuss surgical options for the Left Knee. Patient has history of multiple surgeries on her Left knee, which have not provided any pain relief. Patient has tried meds, heat, ice, and topicals, as well as previous cortisone injections which she states made her pain worse. Patient has also tried Physical therapy. She reports constant sharp, burning pain and swelling of the knee. Patient reports frequet buckling of her knee. Patient reports a pain rating of 7/10 today inoffice. HPI: 06/04/24 New Patient presents for a complaint of left knee pain. Patient reports this has been going on for about 17 years. Patient has previously had a left knee scope 08/04/2023. Patient had surgery on 12/21/[address] Dumont, he performed a meniscectomy/repair of the left knee. Patient had a lateral release on the left knee on 08/29/2020. Patient reports her knee will give out and buckle on her causing her to fall. Patient reports none of her surgeries have helped; Dr. Ellis told her at some point she would need a partial knee replacement. Patient reports constant severe throbbing pain on the anterior knee. Patient reports intermittent burning sensation in the knee. Patient reports it is affecting her daily activities. Patient rates her pain 8/10 in office at rest; she has tried and failed ice,injections and ibuprofen; pain is worse with any walking, standing or even sitting. Patient reportsshe has had injections in the past with [...] no fatigue, no mood swings. Scribe Attestation: Sujatha De La Rosa CMA acted as a scribe and transcribed components of the current encounter under the direction of the Attending Provider. I have not been involved in providing any clinical treatments or patient care. Electronically SignedSujatha CMA OBJECTIVE Vitals: 06/08/24 0943 BP: 123/84 Pulse: 65 Weight: 104.3 kg (230 lb) Height: 1.6 m (5' 3 ) Physical Exam Vitals reviewed. Constitutional: Appearance: Normal appearance. HENT: Head: Normocephalic and atraumatic. Skin: General: Skin is warm and dry. Capillary Refill: Capillary refill takes less than 2 seconds. Findings: No bruising or erythema. Neurological: Mental Status: alert and oriented to person, place, and time. Gait: Gait abnormal. Psychiatric: Mood and Affect: Mood normal. Behavior: [...] with no discoloration or wounds IMAGING/OUTSIDE REPORTS Imaging reviewed today in office from previous encounter on 06/04/24 IMPRESSION: degenerative changes with medial compartment narrowing and tiny osteophyte formation; hardware noted in medial tibial plateau from previous knee surgery; no acute bony abnormalities. Images personally reviewed, interpreted and dictated by Ermias Obando PA-C in office today. ASSESSMENT Problem List Items Addressed This Visit Musculoskeletal and Integument Traumatic arthritis of knee, left Relevant Orders CT lower extremity without IV contrast left Other History of arthroscopic knee surgery, Left - Primary Relevant Orders CT lower extremity without IV contrast left I discussed with patient in depth the options for treatment of osteoarthritis of the knee. Treatment options that include gentle, low-impact exercise, weight loss, physical therapy to promote quadriceps strengthening, the use of NSAIDs, intra-articular steroid injections, viscosupplementation, and genicular nerve blocks were all discussed. I also discussed that if all conservative measures fail to provide satisfactory relief of symptoms, we can discuss surgical options to include arthroplasty of the knee. PLAN Return for post operatively. Rest Ice Follow up after post-operatively/procedure, as scheduled Return to clinic sooner if new or worse symptoms occur Watch for s/s of infection, contact office if seen Discussed MRI of left knee. Patient declined Discussed partial knee arthroplasty. Patient declined Left knee CT ANNA ordered. In basket sent to [facility] Procedure scheduled today in office: Left Total Knee Arthroplasty w/ ANNA Special Surgical Procedure Needs: Knee Surgery: Pre-fabricated hinged knee brace needed post surgery Diagnosis Discussion: Knee Osteoarthritis: I discussed with patient in depth the options for treatment of osteoarthritis of the knee. Treatment options that include gentle, low-impact exercise, weight loss, physical therapy to promote quadriceps strengthening, the use of NSAIDs, intra-articular steroid injections, viscosupplementation, and genicular nerve blocks were all discussed. I also discussed that if all conservative measures fail to provide satisfactory relief of symptoms, we can discusssurgical options to include arthroplasty of the knee. Surgical Risk Discussion: Lower Extremity Total Joint Surgical Risk: The risks and benefits of the planned surgery were discussed in depth with the patient. I discussed potential complications including inherent risk of anesthesia, infection, neurovascular damage, DVT, and rare but real potential loss of limb or life were all reviewed. Patient voices understanding and seems to understand to my satisfaction and wishes to proceed with surgery. I gave them no guarantees in regards to outcomes of this surgery. This patient has pain related to the affected joint. This has caused limitations in activities of daily living in terms of sleep disturbance. They are experiencing a fear of falling related to the affected joint. NSAIDs, physical therapy, intra-articular injections, attempts for weight loss have failed to resolve symptoms. Physical examination findings correlate with subjective complaints. Imaging studies also correlate with subjective complaints. This patient is an appropriate candidate for total joint arthroplasty. Patient has tried and failed:Activity Modification NSAIDs Analgesics Cortisone Injections Gel Injections Discussed increased risk of developing a deep venous thrombosis (DVT). Discussed signs and symptomsof a DVT, as well as a pulmonary embolus (PE). Discussed ways to reduce this risk including anti-coagulants which patient will be placed on postoperatively, elevating extremity at rest, and motion ofupper/lower extremity throughout the day to include, but not limited to, hand/ankle pumps. Patient to notify my office if signs or symptoms develop consistent with a DVT or PE. Instructed patient to go to ED if unavailable to reach our office and developing signs of shortness of breath or severe calf pains. Patient verbalizes understanding Narcotic Education/Discussions: KD performed and reviewed Patient Treats with Pain Management: No Major Surgery: We will prescribe opioids after major surgery for 14 days or less with no refills. Patient education using written material provided to patient: Education, guidance, and counseling about medication: Discussed - Schedule II controlled substance(s) will be prescribed according to your orthopedic care and medical necessity. Schedule II controlled substance(s) are only required for a certain amount of time. Every effort on our part will be usedto switch you over to non-narcotic pain medications as soon as your pain level permits. Our office, your pharmacy, and your insurance company will closely monitor your prescription refills for excessive abuse or intermediate use. If necessary, you will be referred to paint process engineer. We will monitor your use of scheduled drugs through the KD program. In addition, we will follow the monitoring procedures required by the [facility]. The side effects of Schedule II controlled substance(s) / narcotic medications can include GI upset, constipation, drowsiness, dizziness, impaired judgement, itching, rash, and risk of overdose. Narcotic pain medication has high potential for addiction and abuse if not taken properly. You must follow the dosage prescribed to decrease your riskof dependency and / or abuse. Our goal is to decrease you dosage to avoid withdrawal symptoms. Our goal is to have you off of narcotic pain medication as soon as possible. Opioid treatment agreement signed written consent obtained to prescribe controlled substances. Discussed the risks and benefits of the use of controlled substances with patient, including the risk oftolerance and drug dependence. Patient understands these terms Preoperative Education/Discussion Regarding Modifiable Risk Factors Smoking: Patient is a current Non-smoker Body mass index is 40.74 kg/m??. Body Mass Index:Patient's current BMI >35 For TOTAL JOINT: Total Joint: Body mass index Lesser Outcomes after Joint Replacement: Joint replacement will help relieve pain and enable patients to live a samson, more active life. However, if the patient is obese (BMI > 40), they may never achievethe increased mobility and range of motion experienced by a patient of normal weight. They may also experience more implant and prosthesis complications after surgery, to include but not limited to the following: Component loosening and failure; 2-7x higher risk for infection. Dislocation of the replacement joint, especially in the hip; In some cases, a second revision surgery may be necessary to remove failed implants and replace them with new ones ones. Weight loss advised: Weight Loss Planfor patient: Discussed the following: decrease caloric intake, begin low impact exercises, and incorporate healthy lifestyle measures. Advised to consult primary care provider prior to making changes. Discussed surgical intervention for weight loss but deferred referral to primary care provider to determine if patient is a good candidate for weight loss surgery. Bariatric surgery should be the last resort for weight Diabetic: Patient is not Diabetic Scribe Attestation: Vanessa De La Rosa, RTR acted as a scribe and transcribed components of the current encounter under the direction of the Attending Provider. I have not been involved in providing any clinical treatments or patient care. Electronically Signed, OSMANI Esteban PA-C scribing for Fausto Nieves MD I, Fausto Nieves MD, have read and agree with the documentation that has been completed regarding this visit. By signing this record, I attest that the documentation was completed in my physical presence and is an accurate record of the encounter. Electronically Signed, Fausto Nieves MD 06/08/2024 10:12 AM EDT Schuyler Stewart: Jean-Paul RANDOLPH / FLACO is [...] Info) Description 08/02/2024 10:15 AM EDT Treatment [facility] OP Physical Therapy [address] [place] [phone] Du You, DETENTION SERGEANT 08/06/2024 10:15 AM EDT Treatment [facility] Physical Therapy [address] [place] [phone] Du You, DETENTION SERGEANT 09/07/2024 10:00 AM EDT Office Visit [facility] Orthopedics - [address] [phone] Fausto Nieves MD [address] [place] [phone] documented as of this encounter Results * CT lower extremity without IV contrast left (06/14/2024 5:20 PM EDT) Anatomical Region Laterality Modality Lower Extremity, Hip, Femur, Leg, Knee, Ankle, Foot Computed Tomography (CT) 06/15/2024 7:38 AM EDT Impressions 06/15/2024 7:39 AM EDT Degenerative joint disease. Images reviewed, interpreted, and dictated by Bessie Herrera MD Narrative 06/15/2024 7:[address] SCAN LEFT LOWER EXTREMITY 06/14/2024 5:12 PM HISTORY: Knee osteoarthritis. Anna protocol. COMPARISON: None. PROCEDURE: Axial images were obtained through the lower extremity by computed tomography. Sagittal and coronal reconstruction images were performed. This study was performed with techniques to keep radiation doses as low as reasonably achievable, (ALARA). Individualized dose reduction techniques using automated exposure control or adjustment of mA and/or kV according to the patient size were employed. FINDINGS: There is no fracture. There is a joint effusion. There is significant degenerative change. Procedure Note Gera Herrera MD - 06/15/2024 CT SCAN LEFT LOWER EXTREMITY 06/14/2024 5:12 PM HISTORY: Knee osteoarthritis. Anna protocol. COMPARISON: None. PROCEDURE: Axial images were obtained through the lower extremity by computed tomography. Sagittal and coronal reconstruction images were performed. This study was performed with techniques to keep radiation doses as low as reasonably achievable, (ALARA). Individualized dose reduction techniques using automated exposure control or adjustment of mA and/or kV according to the patient size were employed. FINDINGS: There is no fracture. There is a joint effusion. There is significant degenerative change. IMPRESSION: Degenerative joint disease. Images reviewed, interpreted, and dictated by Bessie Herrera MD us Fausto Nieves MD IMG CT ORDERABLES Final Result * ECG 12 lead (06/08/2024 11:27 AM EDT) VENTRICULAR RATE EKG/MIN 46 BPM GE MUSE ATRIAL RATE (MCT) 46 BPM GE MUSE TX Interval 206 ms GE MUSE QRS-INTERVAL (MSEC) 96 ms GE MUSE QT Interval 496 ms GE MUSE QTC Interval 434 ms GE MUSE P [place] 54 degrees GE MUSE R AXIS (MCT) 20 degrees GE MUSE T Wave [place] 21 degrees GE MUSE [place] Diagnosis Sinus bradycardia Otherwise normal ECG No previous ECGs available Confirmed by Emigdio CRUZ RICHARD ([id number]) on 06/08/2024 11:45:34 AM GE MUSE 06/08/2024 11:2 7 AM EDT 06/08/2024 11:45 AM EDT Fausto Nieves MD ECG ORDERABLES Final Result GE MUSE * MRSA Screen (06/08/2024 11:13 AM EDT) MRSA by PCR [facility] MRSA Not Detected by PCR MRSA Not Detected by PCR DEVICE ID9 06/08/2024 5:[address] [facility] Nasal BOTH ANTERIOR NARES / Unknown 06/08/2024 11:13 AM EDT 06/08/2024 11:40 AM EDT Fausto Nieves MD MICROBIOLOGY - GENERAL ORDERAB LES Final Result Performing Organization Address City/[facility]/ZIP Co de Phone Number [facility] [address] [place] [address] * Urinalysis, Reflex Microscopic and Culture If Indicated (06/08/2024 11:13 AM EDT) Color, UA Straw 06/08/2024 11:50 AM EDT [facility] Clarity, UA Clear 06/08/2024 11:50 AM EDT [facility] Specific [place], UA 1.020 1.002 - 1.030 06/08/2024 11:50 AM EDT [facility] pH, UA 6.0 5.0 - 9.0 06/08/2024 11:50 AM EDT [facility] Leukocytes, UA Negative Negative 06/08/2024 11:50 AM EDT [facility] Nitrite, UA Negative Negative 06/08/2024 11:50 AM EDT [facility] Protein, UA Negative Negative 06/08/2024 11:50 AM EDT [facility] Glucose, UA Negative Negative 06/08/2024 11:50 AM EDT [facility] Ketones, UA Negative Negative 06/08/2024 11:50 AM EDT [facility] Bilirubin, UA Negative Negative 06/08/2024 11:50 AM EDT [facility] Blood, UA Negative Negative 06/08/2024 11:50 AM EDT [facility] Urobilinogen, UA 0.2 mg/dL Normal 06/08/2024 11:50 AM EDT [facility] Specimen Source Urine, Clean Catch 06/08/2024 11:50 AM EDT [facility] Urine URINE SPECIMEN COLLECTION, CLEAN CATCH / Unknown 06/08/2024 11:13 AM EDT 06/08/2024 11:40 AM EDT us Fausto S Lizbeth RIZVI URINE ORDERABLES Final Result Performing Organization Address City/State/[facility] Co de Phone Number [facility] [address] [place] [address] * (ABNORMAL) Comprehensive metabolic panel (06/08/2024 11:13 AM EDT) Sodium 138 136 - 145 meq/L 06/08/2024 12:16 PM EDT [facility] Potassium 4.0 3.5 - 5.1 meq/L 06/08/2024 12:16 PM EDT [facility] Chloride 104 98 - 107 meq/L 06/08/2024 12:16 PM EDT [facility] CO2 27 21 - 32 meq/L 06/08/2024 12:16 PM EDT [facility] Calcium 9.2 8.5 - 10.1 mg/dL 06/08/2024 12:16 PM EDT [facility] Glucose 88 70 - 99 mg/dL 06/08/2024 12:16 PM EDT [facility] BUN 11 7 - 18 mg/dL 06/08/2024 12:16 PM EDT [facility] Creatinine 1.19(H) 0.55 - 1.10 mg/dL 06/08/2024 12:16 PM EDT [facility] BUN/Creatinine 9 06/08/2024 12:16 PM EDT [facility] Albumin 3.7 3.4 - 5.0 g/dL 06/08/2024 12:16 PM EDT [facility] Alkaline Phosphatase 99 46 - 116 U/L 06/08/2024 12:16 PM EDT [facility] ALT 19 12 - 78 U/L 06/08/2024 12:16 PM EDT [facility] AST 19 15 - 37 U/L 06/08/2024 12:16 PM EDT [facility] Total Bilirubin 0.3 0.2 - 1.0 mg/dL 06/08/2024 12:16 PM EDT [facility] Protein, Total 7.6 6.4 - 8.2 gm/dL 06/08/2024 12:16 PM EDT [facility] Anion Gap 11 - 06/08/2024 12:16 PM EDT [facility] A/G Ratio 0.9 06/08/2024 12:16 PM EDT [facility] Globulin 3.9 g/dL 06/08/2024 12:16 PM EDT [facility] Osmolality Calc 274.5 mOsm/kg 12:16 PM T [facility] eGFR (mL/min/1.73m2) 57(L) >=60 mL/min/1.7 3m2 06/08/2024 12:16 PM EDT [facility] Comment:ESTIMATED GFR IS NOT ACCURATE CREATININE CLEARANCE IN PREDICTING GLOMERULAR FILTRATION RATE. ESTIMATED GFR IS NOT APPLICABLE FOR DIALYSIS PATIENTS. Blood Venipuncture / Unknown 06/08/2024 11:13 AM EDT 06/08/2024 11:41 AM EDT us Fausto S Lizbeth RIZVI LAB BLOOD ORDERABLES Final Res ult [facility] [address] [place] [address], [facility] [phone] * (ABNORMAL) CBC with automated diff (06/08/2024 11:13 AM EDT) WBC 7.2 4.8 - 10.8 K/ L 06/08/2024 11:45 AM EDT [facility] RBC 4.59 3.50 - 5.20 M/ L 06/08/2024 11:45 AM EDT [facility] Hemoglobin 14.0 11.7 - 15.8 GM/DL 06/08/2024 11:45 AM EDT [facility] Hematocrit 42.0 35.0 - 47.0 % 06/08/2024 11:45 AM EDT [facility] MCV 92 81 - 101 fL 06/08/2024 11:45 AM EDT [facility] MCH 30.5 27.0 - 34.0 pg 06/08/2024 11:45 AM EDT [facility] MCHC 33.3 32.0 - 36.0 GM/DL 06/08/2024 11:45 AM EDT [facility] RDW 12.3 11.5 - 14.5 % 06/08/2024 11:45 AM EDT [facility] Platelets 297 150 - 400 K/CU MM 06/08/2024 11:45 AM EDT [facility] MPV 10.3 9.4 - 12.4 fL 06/08/2024 11:45 AM EDT [facility] Nucleated Red Blood Cell 0.0 0 - 0.2 % 06/08/2024 11:45 AM EDT [facility] % Neutros 61 37 - 80 % 06/08/2024 11:45 AM EDT [facility] % Lymphs 31 10 - 50 % 06/08/2024 11:45 AM EDT [facility] % Monos 5 5 - 13 % 06/08/2024 11:45 AM EDT [facility] % Eos 3 0 - 7 % 06/08/2024 11:45 AM EDT [facility] % Baso 0 0 - 3 % 06/08/2024 11:45 AM EDT [facility] NRBC Absolute <0.01 0 - 0.012 K/ul 06/08/2024 11:45 AM EDT [facility] # Neutros 4.36 2.00 - 6.90 K/ L 06/08/2024 11:45 AM EDT [facility] # Lymphs 2.23 0.60 - 3.40 K/ L 06/08/2024 11:45 AM EDT [facility] # Monos 0.37 0.00 - 0.90 K/ L 06/08/2024 11:45 AM EDT [facility] # Eos 0.19 0.00 - 0.70 K/ L 06/08/2024 11:45 AM EDT [facility] # Baso 0.03 0.00 - 0.20 K/ L 06/08/2024 11:45 AM EDT [facility] Immature Granulocytes-Re lative 0.30 % 06/08/2024 11:45 AM EDT [facility] # IG 0.02(H) 0.00 - 0.00 K/uL 06/08/2024 11:45 AM EDT [facility] Blood Venipuncture / Unknown 06/08/2024 11:13 AM EDT 06/08/2024 11:40 AM EDT Narrative [facility] - 06/08/2024 11:45 AM EDT When CBC w/ Auto Diff is ordered the lab will add a Manual Differential as a quality check at no additional charge if: Lymphocytes greater than seventy five percent with normal or increased WBC Monocytes greater than Fifteen percent Basophil greater than four percent Bands >10% or several immature myeloids are seen on scan Blast? Flag noted Atypical Lymph flag noted us Fausto Denise Nieves MD LAB BLOOD ORDERABLES Final Res ult [facility] [address] [place] [id number] [phone] * X-ray chest PA and lateral (06/08/2024 11:08 AM EDT) Anatomical Region Laterality Modality Chest X-Ray 06/08/2024 11:5 1 AM EDT Impressions 06/08/2024 3:11 PM EDT No radiographic evidence of acute cardiac or pulmonary disease. Images reviewed, interpreted, and dictated by Neeta Cazares MD Narrative 06/08/2024 3:11 PM EDT PA AND LATERAL CHEST INDICATION: Preop heart surgery. COMPARISON: None. FINDINGS: PA and lateral views of the chest were obtained. The cardiac and mediastinal silhouettes are within normal limits. A recorder device is noted along the anterior left chest wall. The lungs are clear. There is no pneumothorax or pleural effusion. No acute osseous abnormality. Procedure Note Neeta Cazares MD - 06/08/2024 PA AND LATERAL CHEST INDICATION: Preop heart surgery. COMPARISON: None. FINDINGS: PA and lateral views of the chest were obtained. The cardiac and mediastinal silhouettes are within normal limits. A recorder device is noted along the anterior left chest wall. The lungs are clear. There is no pneumothorax or pleural effusion. No acute osseous abnormality. IMPRESSION: No radiographic evidence of acute cardiac or pulmonary disease. Images reviewed, interpreted, and dictated by Neeta Cazares MD Fausto S Lizbeth RIZVI IMG DIAGNOSTIC IMAGING ORDERAB LES Final Result documented in this encounter Visit Diagnoses Diagnosis History of arthroscopic knee surgery, Left- Primary Other postprocedural status Traumatic arthritis of knee, left Pre-op testing Unspecified pre-operative examination Traumatic arthritis of left knee Pre-op testing Unspecified pre-operative examination History of arthroscopic knee surgery, Left Other postprocedural status Traumatic arthritis of knee, left documented in this encounter Care Teams Box Toe Buffer Relationship Specialty Start Date End Date Marlo Leonardo [address] [place] [address] PCP - General 12/20/22 06/16/24 documented as of this encounter
--- OUTSIDE RECORDS SUMMARY | 2024-06-08 11:00 | XMS_ITS | Encounter Summary ---
Author Organization [employer] Address [address] [place] [address] Care Team Providers Care Boiler Operators Supervisor Name Role Phone Marlo Leonardo Primary Care Provider Reason for Referral * Other (Routine) - New Request Specialty Diagnoses / Procedures Referred By Contmaddie mata Referred To Contact Diagnoses Pre-op testing Procedures ECG 12 lead Fausto Nieves MD [address] [place] [address] Phone: tel: fax: Referral ID Status Reason Start Date Expiration Date V isits Requested Visits Authorized [id number] New Request 06/08/2024 06/08/2025 1 1 Reason for Visit * Other (Routine) - New Request Specialty Diagnoses / Procedures Referred By William mata Referred To Contact Diagnoses Pre-op testing Procedures ECG 12 lead Fausto Nieves MD [address] [place] [address] Phone: tel: fax: Referral ID Status Reason Start Date Expiration Date V isits Requested Visits Authorized [id number] New Request 06/08/2024 06/08/2025 1 1 Encounter Details Date Type Department Care Team (Late st Contact Info) Description 06/08/2024 11:00 AM EDT Hospital Encounter [facility] [address] [place] [address] Fausto Nieves MD [address] [place] [address] Pre-op testing Discharge Disposition: Home or Self [...] Date Darrian rded Speak language other than Syrian at home Not on file 03/01/2023 Want [...] Info) Description 08/02/2024 10:15 AM EDT Treatment [facility] [address] [place] [phone] Du You, SURJIT 08/06/2024 10:15 AM EDT Treatment [facility] [address] [place] [phone] Du You, PIPE CLEANING MACHINE OPERATOR 09/07/2024 10:00 AM EDT Office Visit [facility] Orthopedics - [address] [phone] Fausto Nieves MD [address] [place] [address] documented as of this encounter Procedures Procedure Name Priority Date/Time Associated Diagnosis Comments FS_MODEL_IP_ECG 12-LEAD Routine 06/08/2024 11:27 AM EDT Pre-op testing documented in this encounter Results * ECG 12 lead (06/08/2024 11:27 AM EDT) VENTRICULAR RATE EKG/MIN 46 BPM GE MUSE ATRIAL RATE (MCT) 46 BPM GE MUSE [place] Interval 206 ms GE MUSE QRS-INTERVAL (MSEC) 96 ms GE MUSE QT Interval 496 ms GE MUSE QTC Interval 434 ms GE MUSE P [place] 54 degrees GE MUSE R AXIS (MCT) 20 degrees GE MUSE T Wave [place] 21 degrees GE MUSE [place] Diagnosis Sinus bradycardia Otherwise normal ECG No previous ECGs available Confirmed by Emigdio CRUZ, KEEGAN ([id number]) on 06/08/2024 11:45:34 AM GE MUSE 06/08/2024 11:2 7 AM EDT 06/08/2024 11:45 AM EDT us Fausto S Lizbeth IRZVI ECG ORDERABLES Final Result GE MUSE documented in this encounter Visit Diagnoses Diagnosis Pre-op testing Unspecified pre-operative examination documented in this encounter Care Teams Boiler Operators Supervisor Relationship Specialty Start Date End Date Marlo Leonardo [address] [place] [phone] PCP - General 12/20/22 06/16/24 documented as of this encounter
--- OUTSIDE RECORDS SUMMARY | 2024-06-08 11:01 | XMS_ITS | Encounter Summary ---
Author Organization [employer] Address [address] [place] [address] Care Team Providers Care Tandem Operator Name Role Phone Marlo Leonardo Primary Care Provider Reason for Referral * Diagnostic X-Ray (Routine) - Closed Specialty Diagnoses / Procedures Referred By William mata Referred To Contact Radiology Diagnoses Pre-op testing Procedures X-ray chest PA and lateral Fausto Nieves MD [address] [place] [address] Phone: tel: fax: [facility] [address] [place] [phone] Phone: tel: fax: Referral ID Status Reason Start Date Expiration Date V isits Requested Visits Authorized [id number] Closed Continuity of Care 06/08/2024 06/08/2025 1 1 Reason for Visit * Diagnostic X-Ray (Routine) - Closed Specialty Diagnoses / Procedures Referred By William mata Referred To Contact Radiology Diagnoses Pre-op testing Procedures X-ray chest PA and lateral Fausto Nieves MD [address] [place] [address] Phone: tel: fax: [facility] [address] [place] [address] Phone: tel: fax: Referral ID Status Reason Start Date Expiration Date V isits Requested Visits Authorized [id number] Closed Continuity of Care 06/08/2024 06/08/2025 1 1 Encounter Details Date Type Department Care Team (Late st Contact Info) Description 06/08/2024 11:01 AM EDT - 06/08/2024 11:59 PM EDT Hospital Encounter [facility] [address] [place] [address] Fausto Nieves MD [address] [place] [address] Pre-op testing Discharge Disposition: Home or Self [...] Date Darrian rded Speak language other than Serbian at home Not on file 03/01/2023 Want [...] 2 (two) times daily. 60 tablet 06/22/2024 6 busPIRone (BUSPAR) 10 MG tablet Take [...] daily for 30 days. 30 tablet 06/22/2024 5 traMADoL (Ultram) 50 mg tablet Take 1 tablet (50 mg total) by mouth every 8 (eight) hours as needed for pain (for mild to moderate post operative pain) for up to 7 days. Max Daily Amount: 150 mg 21 tablet 06/22/2024 5 atorvastatin (LIPITOR) 20 MG tablet Take 1 tablet (20 mg total) by mouth daily. 12/15/2023 5 diclofenac sodium (VOLTAREN) 75 MG EC tablet Take 1 tablet (75 mg total) by mouth 2 (two) times daily. 04/14/2023 5 ipratropium (ATROVENT) 21 mcg (0.03 %) 0.03% nasal spray 2 sprays 3 (three) times daily. 5 multivitamin, stress formula tab Take 1 tablet by mouth daily. 5 documented as of this encounter Plan of Treatment Upcoming Encounters Date Type Department Care Team (Late st Contact Info) Description 08/02/2024 10:15 AM EDT Treatment [facility] Physical Therapy [address] [place] [phone] Du You, MATERIAL SPREADER 08/06/2024 10:15 AM EDT Treatment [facility] Therapy [address] [place] [phone] Du You, MATERIAL SPREADER 09/07/2024 10:00 AM EDT Office Visit [facility] Orthopedics - [address] [phone] Fausto Nieves MD [address] [place] [address] documented as of this encounter Procedures Procedure Name Priority Date/Time Associated Diagnosis Comments XR CHEST PA AND LATERAL Routine 06/08/2024 11:08 AM EDT Pre-op testing documented in this encounter Results * X-ray chest PA and lateral (06/08/2024 [...] and dictated by Neeta Cazares MD Fausto Nieves MD IMG DIAGNOSTIC IMAGING ORDERAB LES Final Result documented in this encounter Visit Diagnoses Diagnosis Pre-op testing Unspecified pre-operative examination documented in this encounter Care Teams Tandem Operator Relationship Specialty Start Date End Date Marlo Leonardo [address] [place] [address] PCP - General 12/20/22 06/16/24 documented as of this encounter
--- OUTSIDE RECORDS SUMMARY | 2024-06-08 11:45 | XMS_ITS | Encounter Summary ---
Author Organization [employer] Address [address] [place] [address] Care Team Providers Care Child Custody Evaluator Name Role Phone Marlo Leonardo Primary Care Provider Encounter Details Date Type Department Care Team (Late st Contact Info) Description 06/08/2024 11:45 AM EDT Lab Patient Walk-In [facility] [address] [place] [address] Fausto Nieves MD [address] [place] [address] Pre-op testing Social History Tobacco Use [...] Date Darrian rded Speak language other than Citizen Of [place] at home Not on file 03/01/2023 Want [...] Description 08/02/2024 10:15 AM EDT Treatment [facility] OP Physical Therapy [address] [place] [phone] Du You, CHIP MIXER 08/06/2024 10:15 AM EDT Treatment [facility] Physical Therapy [address] [place] [phone] Du You, CHIP MIXER 09/07/2024 10:00 AM EDT Office Visit [facility] Orthopedics - [address] [phone] Fausto Nieves MD [address] [place] [address] documented as of this encounter Procedures Procedure [...] (06/08/2024 11:13 AM EDT) MRSA by PCR [facility] MRSA Not Detected by PCR MRSA Not Detected by PCR DEVICE [email or web address] 06/08/2024 5:03 PM EDT [facility] Nasal BOTH ANTERIOR NARES / Unknown 06/08/2024 11:13 AM EDT 06/08/2024 11:40 AM EDT us Fausto S Lizbeth RIZVI MICROBIOLOGY - GENERAL ORDERAB LES Final Result [facility] [address] [phone] * Urinalysis, Reflex Microscopic and Culture If Indicated (06/08/2024 11:13 AM EDT) Color, UA Straw 06/08/2024 11:50 AM EDT [facility] Clarity, UA Clear 06/08/2024 11:50 AM EDT [facility] Specific [place], UA 1.020 1.002 - 1.030 06/08/2024 11:50 AM EDT [facility] pH, UA 6.0 5.0 - 9.0 06/08/2024 11:50 AM EDT [facility] Leukocytes, UA Negative Negative 06/08/2024 11:50 AM EDT [facility] Nitrite, UA Negative Negative 06/08/2024 11:50 AM EDT [facility] Protein, UA Negative Negative 06/08/2024 11:50 AM EDT [facility] Glucose, UA Negative Negative 06/08/2024 11:50 AM EDT [facility] Ketones, UA Negative Negative 06/08/2024 11:50 AM EDT [facility] Bilirubin, UA Negative Negative 06/08/2024 11:50 AM EDT [facility] Blood, UA Negative Negative 06/08/2024 11:50 AM EDT [facility] Urobilinogen, UA 0.2 mg/dL Normal 06/08/2024 11:50 AM EDT [facility] Specimen Source Urine, Clean Catch 06/08/2024 11:50 AM EDT [facility] Urine URINE SPECIMEN COLLECTION, CLEAN CATCH / Unknown 06/08/2024 11:13 AM EDT 06/08/2024 11:40 AM EDT us Fausto Denise Nieves MD URINE ORDERABLES Final Result [facility] [address] [place] [address], [facility] [phone] * (ABNORMAL) Comprehensive metabolic panel (06/08/2024 11:13 AM EDT) Sodium 138 136 - 145 meq/L 06/08/2024 12:16 PM EDT [facility] Potassium 4.0 3.5 - 5.1 meq/L 06/08/2024 12:16 PM EDT [facility] Chloride 104 98 - 107 meq/L 06/08/2024 12:16 PM EDT [facility] CO2 27 21 - 32 meq/L 06/08/2024 12:16 PM EDT [facility] Calcium 9.2 8.5 - 10.1 mg/dL 06/08/2024 12:16 PM EDT [facility] Glucose 88 70 - 99 mg/dL 06/08/2024 12:16 PM EDT [facility] BUN 11 7 - 18 mg/dL 06/08/2024 12:16 PM EDT [facility] Creatinine 1.19(H) 0.55 - 1.10 mg/dL 06/08/2024 12:16 PM EDT [facility] BUN/Creatinine 9 06/08/2024 12:16 PM EDT [facility] Albumin 3.7 3.4 - 5.0 g/dL 06/08/2024 12:16 PM EDT [facility] Alkaline Phosphatase 99 46 - 116 U/L 06/08/2024 12:16 PM EDT [facility] ALT 19 12 - 78 U/L 06/08/2024 12:16 PM EDT [facility] AST 19 15 - 37 U/L 06/08/2024 12:16 PM EDT [facility] Total Bilirubin 0.3 0.2 - 1.0 mg/dL 06/08/2024 12:16 PM EDT [facility] Protein, Total 7.6 6.4 - 8.2 gm/dL 06/08/2024 12:16 PM EDT [facility] Anion Gap 11 - 06/08/2024 12:16 PM EDT [facility] A/G Ratio 0.9 06/08/2024 12:16 PM EDT [facility] Globulin 3.9 g/dL 06/08/2024 12:16 PM EDT [facility] Osmolality Calc 274.5 mOsm/kg 12:16 PM EDT [facility] eGFR (mL/min/1.73m2) 57(L) >=60 mL/min/1.7 3m2 06/08/2024 12:16 PM EDT [facility] Comment:ESTIMATED GFR IS NOT ACCURATE CREATININE CLEARANCE IN PREDICTING GLOMERULAR FILTRATION RATE. ESTIMATED GFR IS NOT APPLICABLE FOR DIALYSIS PATIENTS. Blood Venipuncture / Unknown 06/08/2024 11:13 AM EDT 06/08/2024 11:41 AM EDT us Fausto Nieves MD LAB BLOOD ORDERABLES Final Res ult [facility] [address] [id number] [phone] * (ABNORMAL) CBC with automated diff (06/08/2024 11:13 AM EDT) WBC 7.2 4.8 - 10.8 K/ L 06/08/2024 11:45 AM EDT [facility] RBC 4.59 3.50 - 5.20 M/ L 06/08/2024 11:45 AM EDT [facility] Hemoglobin 14.0 11.7 - 15.8 GM/DL 06/08/2024 11:45 AM EDT [facility] Hematocrit 42.0 35.0 - 47.0 % 06/08/2024 11:45 AM EDT [facility] MCV 92 81 - 101 fL 06/08/2024 11:45 AM EDT [facility] MCH 30.5 27.0 - 34.0 pg 06/08/2024 11:45 AM EDT [facility] MCHC 33.3 32.0 - 36.0 GM/DL 06/08/2024 11:45 AM EDT [facility] RDW 12.3 11.5 - 14.5 % 06/08/2024 11:45 AM EDT [facility] Platelets 297 150 - 400 K/CU MM 06/08/2024 11:45 AM EDT [facility] MPV 10.3 9.4 - 12.4 fL 06/08/2024 11:45 AM EDT [facility] Nucleated Red Blood Cell 0.0 0 - 0.2 % 06/08/2024 11:45 AM EDT [facility] % Neutros 61 37 - 80 % 06/08/2024 11:45 AM EDT [facility] % Lymphs 31 10 - 50 % 06/08/2024 11:45 AM EDT [facility] % Monos 5 5 - 13 % 06/08/2024 11:45 AM EDT [facility] % Eos 3 0 - 7 % 06/08/2024 11:45 AM EDT [facility] % Baso 0 0 - 3 % 06/08/2024 11:45 AM EDT [facility] NRBC Absolute <0.01 0 - 0.012 K/ul 06/08/2024 11:45 AM EDT [facility] # Neutros 4.36 2.00 - 6.90 K/ L 06/08/2024 11:45 AM EDT [facility] # Lymphs 2.23 0.60 - 3.40 K/ L 06/08/2024 11:45 AM EDT [facility] # Monos 0.37 0.00 - 0.90 K/ L 06/08/2024 11:45 AM EDT [facility] # Eos 0.19 0.00 - 0.70 K/ L 06/08/2024 11:45 AM EDT [facility] # Baso 0.03 0.00 - 0.20 K/ L 06/08/2024 11:45 AM EDT [facility] Immature Granulocytes-Re lative 0.30 % 06/08/2024 11:45 AM EDT [facility] # IG 0.02(H) 0.00 - 0.00 K/uL 06/08/2024 11:45 AM EDT [facility] Blood Venipuncture / Unknown 06/08/2024 11:13 AM EDT 06/08/2024 11:40 AM EDT Narrative [facility] - 06/08/2024 11:45 AM EDT [...] MD LAB BLOOD ORDERABLES Final Res ult [facility] [address] [place] [address], [facility] [phone] documented in this encounter Visit Diagnoses Diagnosis Pre-op testing Unspecified pre-operative examination documented in this encounter Care Teams Child Custody Evaluator Relationship Specialty Start Date End Date Marlo Leonardo [address] [place] [address] PCP - General 12/20/22 06/16/24 documented as of this encounter
--- OUTSIDE RECORDS SUMMARY | 2024-06-14 17:12 | XMS_ITS | Encounter Summary ---
Author Organization [employer] Address [address] [place] [address] Care Team Providers Care Printer Apprentice Name Role Phone Marlo Leonardo Primary Care Provider [phone] Reason for Referral * CAT Scan (Routine) - Closed Specialty Diagnoses / Procedures Referred By William mata Referred To Contact Radiology Diagnoses History of arthroscopic knee surgery Traumatic arthritis of knee, left Procedures CT lower extremity without IV contrast left Fausto Nieves MD [address] [place] [address] Phone: tel: fax: [facility] [address] [place] [address] Phone: tel: fax: Referral ID Status Reason Start Date Expiration Date V isits Requested Visits Authorized [id number] Closed Continuity of Care 06/08/2024 09/06/2024 1 1 Reason for Visit * CAT Scan (Routine) - Closed Specialty Diagnoses / Procedures Referred By William mata Referred To Contact Radiology Diagnoses History of arthroscopic knee surgery Traumatic arthritis of knee, left Procedures CT lower extremity without IV contrast left Fausto Nieves MD [address] [place] [address] Phone: tel: fax: [facility] CT [facility] [address] [place] [address] Phone: tel: fax: Referral ID Status Reason Start Date Expiration Date V isits Requested Visits Authorized [id number] Closed Continuity of Care 06/08/2024 09/06/2024 1 1 Encounter Details Date Type Department Care Team (Late st Contact Info) Description 06/14/2024 5:12 PM EDT - 06/14/2024 11:59 PM EDT Hospital Encounter [facility] CT [facility] [address] [place] [address] Fausto Nieves MD [address] [place] [address] History of arthroscopic knee surgery, Left; Traumatic arthritis of knee, left Discharge Disposition: Home or Self Care Social History Tobacco Use Types Packs/Day Years Used Date Smoking Tobacco: Never Smokeless Tobacco: Never Alcohol Use Standard Drinks/Week Comments Not Currently 0 (1 standard drink = 0.6 oz [...] rded Speak language other than Citizen [place] at home Not on file 03/01/2023 Want [...] daily for 10 days. 20 capsule 06/22/2024 meloxicam (MOBIC) 15 MG tablet Take 1 [...] Amount: 150 mg 21 tablet 06/22/2024 5 ipratropium (ATROVENT) 21 mcg (0.03 %) 0.03% nasal spray 2 sprays 3 (three) times daily. 5 multivitamin, stress formula tab Take 1 tablet by mouth daily. 5 documented as of this encounter Plan of Treatment Upcoming Encounters Date Type Department Care Team (Late st Contact Info) Description 08/02/2024 10:15 AM EDT Treatment [facility] OP Physical Therapy [address] [place] [phone] Du You, SURJIT 08/06/2024 10:15 AM EDT Treatment [facility] Physical Therapy [address] [place] [phone] Du You, SPARE FIXER 09/07/2024 10:00 AM EDT Office Visit [facility] Orth[facility]ics - [address] [phone] Fausto Nieves MD [address] [place] [address] documented as of this encounter Procedures Procedure Name Priority Date/Time Associated Diagnosis Comments CT LOWER EXTREMITY WITHOUT IV CONTRAST LEFT Routine 06/14/2024 5:20 PM EDT History of arthroscopic knee surgery, Left Traumatic arthritis of knee, left documented in this encounter Results * CT lower extremity [...] EXTREMITY 06/14/2024 5:12 PM HISTORY: Knee osteoarthritis. Maxim protocol. COMPARISON: None. PROCEDURE: Axial images were [...] There is significant degenerative change. Procedure Note Holli Herrera MD - 06/15/2024 CT SCAN LEFT LOWER EXTREMITY 06/14/2024 5:12 PM HISTORY: Knee osteoarthritis. Maxim protocol. COMPARISON: None. PROCEDURE: Axial images were [...] interpreted, and dictated by Bessie Herrera MD Fausto Nieves MD IM CT ORDERABLES Final Result documented in this encounter Visit Diagnoses Diagnosis History of arthroscopic knee surgery, Left Other postprocedural status Traumatic arthritis of knee, left documented in this encounter Care Teams Printer Apprentice Relationship Specialty Start Date End Date Taylor Leonardo[address]anholli [address] [place] [address] [place] [address] PCP - General 12/20/22 06/16/24 documented as of this encounter
--- OUTSIDE RECORDS SUMMARY | 2024-06-21 06:06 | XMS_ITS | Encounter Summary ---
Author Organization [employer] Address [address] [place] [address] Care Team Providers Care Elementary Educator Name Role Phone Gurjit Mena MD Primary Care Provider [phone] Reason for Referral * Consultation (Routine) - Authorized Specialty Diagnoses / Procedures Referred By William mata Referred To Contact Physical Therapy Diagnoses Status post left knee replacement Fausto Jacobo MD [address] [place] [address] Phone: tel: fax: Referral ID Status Reason Start Date Expiration Date Visits Requested Visits Authorized [id number] Authorized Specialty Services Required 06/21/2024 08/20/2024 15 15 Reason for Visit * Auth/Cert (Routine) Specialty Diagnoses / Procedures Referred By William mata Referred To Contact Diagnoses 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 Procedures HI ARTHRP KNE CONDYLE&PLATU MEDIAL&LAT COMPARTMENTS ARTHROPLASTY, KNEE, ROBOT-ASSISTED Fausto Jacobo MD [address] [place], [place] [id number] Phone: tel: fax: Referral ID Status Reason Start Date Expiration Date Visits Re quested Visits Authorized [id number] 06/08/2024 1 1 Encounter Details Date Type Department Care Team (Late st Contact Info) Description 06/21/2024 6:06 AM EDT - 06/22/2024 1:30 PM EDT Hospital Encounter [facility] [address] [place] [address] Fausto Jacobo MD [address] [place] [address] Status post left knee replacement [...] your living situation today? I have a [facility] place to live 06/21/2024 Think about the [...] Do you speak a language other than [place] at [facility]? No 06/21/2024 Do you want [...] Reason for Admission: Left knee osteoarthritis and [facility] Hospital Course: Admitted for Left total knee [...] Your Medications These medications were sent to [id number] - [place] [address], [facility] [address] acetaminophen 500 MG tablet aspirin 81 MG [...] Discharge Follow UP: Contact information for follow-up [facility] [address] [place] [address] Next Steps: Go to Instructions: Walker provided by [facility] ([phone]). If you have any questions or concerns regarding your WALKER, please call them at [phone]. [facility] Outpatient Physical Therapy ([facility] Location) [facility] Outpatient Physical Therapy ([facility]) [address] [place] [address] Next Steps: Go to Instructions: Outpatient physical therapy provided by [facility] Outpatient Physical Therapy ([facility]) [phone]. APPOINTMENT: Sunday, June 23, 2024 at 8:45 am. If you have any questions or concerns, please call them at [phone]. Gurjit Mena MD Specialty: Family Medicine Relationship: PCP - General [address] [place] [address] Next Steps: Follow up in 1 week(s) [...] Everywhere. * Fall Prevention in Hospitals Adult (Malian) * Total Knee Replacement Care After Vmdd-rf-[id number] (Malian) * Infection Prevention in the Home (Malian) * Pain Medicine Instructions Qgsg-st-Xlle (Malian) documented in this encounter Medications at Time [...] KNEE, ROBOT-ASSISTED; Surgeon: Fausto Jacobo MD; Location: [facility]; Service: Orthopedic Surgery; Laterality: Left; General Visit type: Treatment Approved by: Nursing Patient disposition upon entry: Patient verified by name, Patient verified by date of , Supinein bed, All needs met and within reach, Call light/pull cord in reach, Head of bed >30 degrees, Nursing aware/notified Co-treated by: PT Assisted by: cryptographic technician Precautions Weightbearing status: Weight bearing as [...] 06/22/2024 - 10:08 AM EDT * Colette Avendano PT - 06/22/2024 10:07 AM EDT Images [...] Date of Co-treated by: OT Assisted by: cryptographic technician Precautions Weight-Bearing Status: Weight Bearing As [...] KNEE, ROBOT-ASSISTED; Surgeon: Fausto Jacobo MD; Location: [facility]; Service: Orthopedic Surgery; Laterality: Left; General Visit Type: Initial Evaluation Approved By: Nurse Bearden Patient Disposition Upon Entry: Supine in bed, Call Light/Pull Cord in reach, All needs met and within reach, Nursing aware/notified, HOB >30 degrees, [place] hose on Patient Verified By: Name and Date of Co-treated by: OT Assisted by: cryptographic technician Precautions Weight-Bearing Status: Weight Bearing As [...] KNEE, ROBOT-ASSISTED; Surgeon: Fausto Jacobo MD; Location: [facility]; Service: Orthopedic Surgery; Laterality: Left; General Visit type: Initial Evaluation Approved by: Nursing Patient disposition upon entry: Patient verified by name, Patient verified by date of , Supinein bed, All needs met and within reach, Call light/pull cord in reach, Head of bed >30 degrees, Nursing aware/notified Co-treated by: PT Assisted by: cryptographic technician Precautions Weightbearing status: Weight bearing as [...] Toileting:Standby Assist, Contact guard assist Outcome Measures [facility] Daily Living Functional Assessment How much [...] DME: no preference Therapy: Oupatient therapy ( [facility] outpatient [place]) Per patient family/friends will be at home with her to help her recover. Patient/family provided with [facility] approved choice list and Patient choice letter along with Quality data link to access Medicare.gov Care Compare website to review potential post-acute providers. Choice provided to patient/family, and patient preferences received and referral(s) submitted to requested providers. Referral(s) submitted to: DME: no preference, [facility], [facility] Outpatient Physical Therapy [place]. * Tiffanie Das RN - 06/21/2024 6:36 AM EDT Uses cpap at home documented in this encounter H&P Notes * Shobha Childs APRN - 06/21/2024 12:07 PM EDT Images from the original note were not included. History & Physical - Date of Service: 06/21/2024 Name: Ran Kamara Room: [facility] : 1975 Age: 48 y.o. @ATTENDING@ Gurjit [...] KNEE, ROBOT-ASSISTED; Surgeon: Fausto Jacobo MD; Location: [facility] OR; Service: Orthopedic Surgery; Laterality: Left; Adhesive Social History Tobacco Use Smoking status: Never Smokeless tobacco: Never Substance Use Topics Alcohol use: Not Currently Family History Problem Relation Name Age of Onset Atrial fibrillation Mother Heart attack Father Hypertension Father Diabetes Sister Earl Syndrome (HNPCC) Brother Prior to Encounter Medication List (as reviewed in [employer]) Medications Ventolin HFA 90 mcg/actuation inhaler Si [...] XR knee 1 or 2 views left [[id number]] Collected: 06/21/24 1048 Order Status: Completed Updated: [...] 10:08 AM EDT NAME: Ran Kamara CSN: [id number] : 1975 PCP: Gurjit Mena MD REASON [...] your prescription refills for excessive abuse or group home use. If necessary, you will be referred to aircraft painter apprentice. We will monitor your use of scheduled drugs through the KD program. In addition, we will follow the monitoring procedures required by the [facility]. The side effects of Schedule II controlled [...] total knee arthroplasty using Anna robotic assistance ([employer] Triathlon system using cementless technology with cruciate [...] and attached trackers and checkpoints for the [employer] system and went through systematic registration until we had good correlation. Analysis revealed 7 degrees of [place] varus with 4 degrees of hyperextension. We [...] standard tibial and femoral cuts using the [employer] robotic system in sequence. With trial components [...] tolerated the procedure well without any complications. /[id number] Fausto Jacobo MD ASC/AQ / ASC / AQS /[id number] documented in this encounter Miscellaneous Notes * [...] Info) Description 08/02/2024 10:15 AM EDT Treatment [facility] OP Physical Therapy [address] [place] [phone] Du You, SKI TOPPER 08/06/2024 10:15 AM EDT Treatment [facility] OP Physical Therapy [address] [place] [phone] Du You, SKI TOPPER 09/07/2024 10:00 AM EDT Office Visit [facility] - [address] [address] Fausto Jacobo MD [address] [place] [id number] Scheduled Referrals Name Type Priority Associated Diagnoses [...] VIEWS LEFT STAT 06/21/2024 10:01 AM EDT HI ARTHRP KNE CONDYLE&PLATU MEDIAL&LAT COMPARTMENTS 06/21/2024 7:29 AM EDT Traumatic arthritis of left knee Case Notes 0630Adhesive allergy TISSUE EXAM [facility] AP Routine 06/21/2024 7:13 AM EDT Traumatic arthritis of left knee documented in this encounter Results * (ABNORMAL) Hemoglobin and Hematocrit (06/22/2024 3:45 AM EDT) Hemoglobin 11.6(L) 11.7 - 15.8 GM/DL 06/22/2024 4:09 AM EDT [facility] Hematocrit 34.7(L) 35.0 - 47.0 % 06/22/2024 4:09 AM EDT [facility] Blood Venipuncture / Unknown 06/22/2024 3:45 AM EDT 06/22/2024 3:57 AM EDT us Fausto S Lizbeth RIZVI LAB BLOOD ORDERABLES Final Res ult [facility] [address] [place] [address] * XR knee 1 or 2 views [...] CYTOLOGY LABORATORY Comment: [facility] [address] [place] [address] or [phone] Noe Fuentes M.D., Maintenance Planning Clerk PATIENT NAME LABORATORY NO. [id number] R[address] KAMARA. [id number] AGE SEX SSN CLIENT REF # [place] [id number] 1975 F [id number] LIBBY REQUESTING Emigdio ATTENDING Emigdio COPY TO. [address] [place] [address] DATE COLLECTED DATE RECEIVED DATE REPORTED 06/21/2024 06/21/2024 06/22/2024 DIAGNOSIS: A. BONE FRAGMENTS, GROSS ONLY, LEFT KNEE: GROSS DIAGNOSIS: Changes consistent with osteoarthritis B. HARDWARE, LEFT KNEE: GROSS DIAGNOSIS: Consistent with explanted hardware BG/sm CLINICAL HISTORY: Traumatic arthropathy, left knee SPECIMENS RECEIVED: A. BONE FRAGMENTS, GROSS ONLY, LEFT KNEE B. HARDWARE, LEFT KNEE Professional interpretation rendered by Paramjit Roldan M.D., F.C.A.P. at [employer], [place], [address] [place] [address], [place] [address]. GROSS DESCRIPTION: A. Received in formalin labeled [...] BY: Paramjit Roldan M.D., [place] CPT CODES: 85120b3 Bone STRUCTURE OF LEFT KNEE REGION / Unknown 06/21/2024 7:13 AM EDT Biomedical device (physical object) STRUCTURE OF LEFT KNEE REGION / Unknown 06/21/2024 9:07 AM EDT Fausto Jacobo MD PATHOLOGY/CYTOLOGY ORDERABLES Final Result [facility] [address] [place] [address] documented in this encounter Visit Diagnoses Diagnosis [...] waste bin. 2031 (Given - Provider: Jaimie Galalrdo, RN) famotidine (PEPCID) tablet 20 mg (COMPLETED) [...] no further options ordered., Phase II/On Unit kavidyfpdhp-QGB-ajcKMLzfj-ke torolac (R.E.C.K.) 2.46-0.005-0.0008-0.3 mg/mL- 50 mL syringe [...] Unit documented in this encounter Care Teams Elementary Educator Relationship Specialty Start Date End Date Gurjit Mena MD [address] [place] [address] PCP - General Family Medicine 06/17/24 documented as of this encounter
--- OUTSIDE RECORDS SUMMARY | 2024-06-21 07:29 | XMS_ITS | Encounter Summary ---
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 Procedures MI ARTHRP KNE CONDYLE&PLATU MEDIAL&LAT COMPARTMENTS ARTHROPLASTY, KNEE, ROBOT-ASSISTED Fausto Nieves MD [address] [place] [address] Phone: tel: fax: Referral ID Status Reason Start Date Expiration Date Visits Re quested Visits Authorized [id number] 06/08/2024 1 1 Encounter Details Date Type Department Care Team (Late st Contact Info) Description 06/21/2024 7:29 AM EDT Anesthesia Event [facility] Operating Room [address] [place] [phone] Moe Francois CRNA [address] [place] [address] Beatriz Ventura CRNA Anesthesia Record Procedure Summary Procedure Name Responsible Anesthesiologist Anesthesia Start Time Anesthesia Stop Time ARTHROPLASTY, KNEE, ROBOT-ASSISTED (Left: Knee) Moe Francois CRNA 06/21/24 0729 06/21/24 0945 Events Date Time Event Comment 06/21/2024 0700 0729 An Start Patient identif ied and chart reviewed. 0730 An Start Data Anesthesia mac annalise and monitors checked. 0732 Pre-Induction Eval FDA anest hesia machine pre-use checkout completed. Patient status reassessed prior to start of anesthesia care. 0736 An Induction 0737 An Intubation 0748 Anesthesia Ready 0750 An Tourn Inflated 250 mmHg l eft leg 0837 An Tourn Deflated 0935 An Extubation 0940 an stop data 0942 Handoff to Receiving I compl eted my handoff to the receiving clinician during which we: 1. Identified the patient. 2. Identified the responsible provider. 3. Reviewed the pertinent medical history. 4. Discussed the surgical course. 5. Reviewed intra-op anesthesia management and issues during anesthesia. 6. Set expectations for post-procedure period. 7. Allowed opportunity for questions and acknowledgement of understanding. 0945 An Stop Meds Name Total dexamethasone (DECADRON) injection 4 mg/ mL 4 mg fentaNYL (SUBLIMAZE) injection 200 mcg glycopyrrolate (ROBINUL) injection 0.6 m g lidocaine (XYLOCAINE) injection 2% 60 mg midazolam (VERSED) injection 1 mg/ mL 2 mg neostigmine (PROSTIGMINE) 1 mg/mL inject ion 3 mg ondansetron (ZOFRAN) injection vial 4 mg propofol (DIPRIVAN) injection 10 mg/mL b olus 200 mg rocuronium (ZEMURON) 100 mg/10 mL inject ion 30 mg ceFAZolin in sterile water (ANCEF) 2 gra m/20 mL syringe 2 g 2 g tranexamic acid (CYKLOKAPRON) injection 2,000 mg bupivacaine 0.25%-EPINEPHrine (MARCAINE w/ EPI) injection 20 mL dexmedeTOMIDine (PRECEDEX) injection 200 mcg/2 mL 50 mcg ketamine injection 10 mg/mL 70 mg lactated Ringer's infusion 1,400 mL * Agents Name O2 N2O Air SEVOFLURANE * Blood No blood administrations on file. Lines, Drains, and Airways Type Details Placement Removal Wound 06/21/24; 808; Inci remberto; Knee; Left; woodrow hose 06/21/24 08 by Faith Simms RN Peripheral IV Placement Date: 07/11; Placement Time: 641; Size: 20 G; Orientation: Posterior, Right; Location: Hand; Site Prep: Alcohol; Local Anesthetic: None; Insertion attempts: 1; Securement Method: Taped, Skin barrier; Removal Date: 06/22/24; Removal Time: 1258 06/21/24 0642 by Tiffanie Das RN 06/22/24 1258 by Harmony Higginbotham LPN ETT Placement Date 06/21; Placement Time 07 (created via procedure documentation); Removal Date 06/21/24; Removal Time 93406/21/24 0737 by Moe Francois CRNA 06/21/24 0935 by Moe Francois CRNA ETT Placement Date 06/21; Placement Time 0740 (created via procedure documentation); Airway Size 7; Airway Cuffed Yes; Removal Date 06/21/24; Removal Time 93406/21/24 0740 by Moe Francois CRNA 06/21/24 09 by Moe Francois CRNA documented in this encounter Social History Tobacco Use Types Packs/Day Years Used Date Smoking Tobacco: Never Smokeless Tobacco: Never Alcohol Use Standard Drinks/Week Comments Not Currently 0 (1 standard drink = 0.6 oz pur e alcohol) Utilities Answer Date Recorded In the past 12 months, has t he electric, gas, oil, or water [employer] threatened to shut off services in your home? No 06/21/2024 Interpersonal Safety Answer Date Record ed How often does anyone, reyeseduardo jewell family and friends, physically hurt you? [...] your living situation today? I have a [facility] [place] place to live 06/21/2024 Think about the [...] speak a language other than [place]ian at [facility]? No 06/21/2024 Do you want help with [...] on file documented as of this encounter OR Notes * Anesthesia Postprocedure Evaluation - Moe Francois CRNA - 06/21/2024 9:46 AM EDT Patient: Ran Ayala Procedure Summary Date: 06/21/24 Room / Location: [facility] OR OPERATING ROOM Anesthesia Start: 728 Anesthesia Stop: Procedure: ARTHROPLASTY, KNEE, ROBOT-ASSISTED (Left: Knee) Diagnosis: Traumatic arthritis of left knee (Traumatic arthritis of left knee) Surgeons: Fausto Nieves MD Responsible Provider: Moe Francois CRNA Anesthesia Type: general, regional, spinal ASA Status: 3 Anesthesia Type: general, regional, spinal Vitals Value Taken Time BP 106/63 06/21/24 0945 Temp 98.1 06/21/24 0946 Pulse 74 06/21/24 0945 Resp 14 06/21/24 0945 SpO2 96 % 06/21/24 0945 Vitals shown include unfiled device data. Ht 1.6 m (5' 3 ) Wt 103 kg (227 lb) BMI 40.21 kg/m?? Anesthesia Post Evaluation Patient location during evaluation: PACU Patient participation: complete - patient participated Level of consciousness: awake and alert Pain score: 0 Pain management: adequate Multimodal analgesia pain management approach Airway patency: patent Cardiovascular status: stable and acceptable Respiratory status: acceptable, nonlabored ventilation, spontaneous ventilation and face mask Hydration status: acceptable Color: [place] Activity: Moves 4 extremities Inotropes/Vasopressors: N/A No notable events documented. Moe Francois CRNA 06/21/2024 9:46 AM EDT * Anesthesia Procedure Notes - Dmitriy Long MD - 06/21/2024 8:52 AM EDT Associated Order(s): Peripheral Nerve Block Peripheral Nerve Block Authorized by: Moe Francois CRNA Performed by: Dmitriy Long MD Patient location during procedure: pre-op Start time: 06/21/2024 7:05 AM End time: 06/21/2024 7:23 AM Reason for block: procedure for pain, at surgeon's request and post-op pain management Preanesthetic Checklist Completed: patient identified, IV checked, site marked, risks and benefits discussed, surgical consent, monitors and equipment checked, pre-op evaluation and timeout performed Peripheral Block Patient position: supine Prep: ChloraPrep Patient monitoring: heart rate, shelter monitor and continuous pulse ox Block type: adductor canal (+ Superior Lat Genicular/NVI/SMG/IMG) Laterality: left Injection technique: single-shot Guidance: ultrasound guided Local infiltration: lidocaine Needle Needle type: short-bevel Needle localization: ultrasound guidance Test dose: negative Medications Administered bupivacaine 0.25%-EPINEPHrine (MARCAINE w/ EPI) injection - perineural 20 mL - 06/21/2024 7:05:00 AM dexmedeTOMIDine (PRECEDEX) injection 200 mcg/2 mL - perineural 50 mcg - 06/21/2024 7:05:00 AM Assessment Injection assessment: negative aspiration for heme, no paresthesia on injection, incremental injection and local visualized surrounding nerve on ultrasound Paresthesia pain: none Heart rate change: no Slow fractionated injection: yes Additional Notes AGENTS: 0.25% Bupiv with 1/200k epi for Geniculars (5cc X4) // 0.5% Bupiv with 1/200k epi 20cc + 50mcg Precedex for Adductor (Bup would not scan) The risks/benefits/alternatives were discussed with patient ( and family). It was agreed to proceedwith a regional nerve block and sites were marked. After Timeout, sedation was begun (see Anes record for agents). Chloraprep was used for skin cleansing. Ultrasound was used to identify neural/ vascular/ bony landmarks/ fascial planes. Skin was infiltrated with local anesthetic. AGENTS were injected in divided 3-5cc increments with negative aspirations (after assuring there were no paresthesias from the needle). The SLGN/NVI/SMG was perormed just superior and lateral to patella after contact with Femur bone-- SMG next to Tibia. Adductor was then performed in standard fashion with care to identify NVM. There was no evidence of IN nor IV injection with either. The procedure was well tolerated with no evidence of complications. See attached images uploaded to MEDIA via [employer] ( due to [facility] not having an interface between the [employer] and Radiology). * Anesthesia Procedure Notes - Moe Francois CRNA - 06/21/2024 7:55 AM EDT Associated Order(s): Intubation Intubation Authorized by: Moe Francois CRNA Performed by: Moe Francois CRNA Date/Time: 06/21/2024 7:40 AM Urgency: elective Indications and Patient Condition Indications for airway management: anesthesia and airway protection Spontaneous Ventilation: absent Sedation level: general anesthesia Preoxygenated: yes Patient position: sniffing MILS maintained throughout: yes Mask difficulty assessment: 1 - vent by mask (LMA) Planned trial extubation: yes Final Airway Details Final airway type: endotracheal airway Endotracheal tube type: ETT Cuffed: yes Successful intubation technique: direct laryngoscopy Facilitating devices/methods: intubating stylet Endotracheal tube insertion site: oral Blade: Liam Blade size: #3 ETT size (mm): 7.0 Cormack-Lehane Classification: grade IIa - partial view of glottis Placement verified by: chest auscultation and capnometry Measured from: lips ETT to lips (cm): 21 Number of attempts at approach: 1 Number of other approaches attempted: 0 Additional Comments Easy intubation after LMA removal * Anesthesia Procedure Notes - Moe Francois CRNA - 06/21/2024 7:53 AM EDT Associated Order(s): Intubation Intubation Authorized by: Moe Francois CRNA Performed by: Meo Francois CRNA Date/Time: 06/21/2024 7:37 AM Urgency: elective Indications and Patient Condition Indications for airway management: anesthesia Spontaneous Ventilation: absent Sedation level: general anesthesia Preoxygenated: yes Patient position: sniffing MILS maintained throughout: yes Mask difficulty assessment: 0 - not attempted Planned trial extubation: yes Final Airway Details Final airway type: supraglottic airway Supraglottic airway type: classic Size: 4 Number of attempts at approach: 1 Number of other approaches attempted: 0 Additional Comments Decided to pull LMA after a few minutes. Tidal volumes <200 with [id number] peak pressure, SpO2 started to taper down, reached 93%. Rocuronium IV then intubated successfully, see additional intubation note * Anesthesia Preprocedure Evaluation - Dmitriy Long MD - 06/21/2024 6:49 AM EDT Anesthesia Pre Evaluation Ms. Ran Ayala is a 48 y.o. female being evaluated for the following: Date/Time: 06/21/[address] Procedure: ARTHROPLASTY, KNEE, ROBOT-ASSISTED (Left) Location: [facility] Surgeons: Fausto Nieves MD BP 112/81 Pulse 55 Temp 97 ??F (36.1 ??C) (Skin) Resp 18 Ht 1.6 m (5' 3 ) Wt 103 kg (227 lb) SpO2 96% BMI 40.21 kg/m?? No current facility-administered medications on file prior to encounter. Current Outpatient Medications on File Prior to Encounter Medication Sig Dispense Refill busPIRone (BUSPAR) 10 MG tablet Take 1 tablet (10 mg total) by mouth 3 (three) times daily. cholecalciferol (VITAMIN D3) 125 mcg (5,000 unit) tablet Take 1 capsule by mouth daily. escitalopram (LEXAPRO) 10 MG tablet Take 1 tablet (10 mg total) by mouth daily. estradioL (ESTRACE) 1 MG tablet Take 1 tablet (1 mg total) by mouth daily. fluticasone furoate-vilanteroL (BREO ELLIPTA) 200-25 mcg/dose dsdv Inhale by mouth via inhaler. ipratropium (ATROVENT HFA) 17 mcg/actuation inhaler Inhale 2 puffs by mouth. ipratropium (ATROVENT) 21 mcg (0.03 %) 0.03% nasal spray 2 sprays 3 (three) times daily. multivitamin, stress formula tab Take 1 tablet by mouth daily. traZODone (DESYREL) 100 MG tablet Take 2 tablets (200 mg total) by mouth every night as needed. Ventolin HFA 90 mcg/actuation inhaler 2 puffs. Relevant Problems ANESTHESIA (within normal limits) (+) FARHEEN on CPAP CARDIOVASCULAR (+) Mitral valve prolapse ENDOCRINE (within normal limits) S/p Rt hemithyroidectomy GASTROINTESTINAL (within normal limits) /RENAL (+) Chronic renal insufficiency (H/o hematuria) NEURO/PSYCH (+) Anxiety (+) History of arthroscopic knee surgery, Left (+) Migraine RESPIRATORY SYSTEM (+) Mild asthma (-) Smoker Musculoskeletal and Integument (+) Traumatic arthritis of left knee Other (+) Arthritis (+) Bradycardia Clinical information reviewed: Tobacco Allergies Meds Med Hx Surg Hx Fam Hx NPO Status Date of last liquid: 06/20/24 Date of last solid: 06/20/24 Physical Exam Airway Mallampati: II TM distance: <3 FB Neck ROM: full Cardiovascular - normal exam Dental (+) edentulous Pulmonary - normal exam Abdominal Anesthesia Plan ASA 3 Planned anesthetic: general, regional and spinal Anesthesia Plan Factors- The patient is not a current smoker. Induction: intravenous Informed Consent- Anesthetic plan and risks discussed with patient and spouse (daughter). Plan discussed with SERVICE ESTABLISHMENT ATTENDANT. documented in this encounter Plan of Treatment Upcoming Encounters Date Type Department Care Team (Late st Contact Info) Description 08/02/2024 10:15 AM EDT Treatment [facility] OP Physical Therapy [address] [place] [phone] Du You, STUDIO OPERATOR 08/06/2024 10:15 AM EDT Treatment [facility] OP Physical Therapy [address] [place] [phone] Du You, SURJIT 09/07/2024 10:00 AM EDT Office Visit [facility] - [place] [phone] Fausto Nieves MD [address] [place] [phone] documented as of this encounter Procedures Procedure Name Priority Date/Time Associated Diagnosis Comments ANESTHESIA INTUBATION Routine 06/21/2024 7:40 AM EDT ANESTHESIA INTUBATION Routine 06/21/2024 7:37 AM EDT HC PERIPHERAL NERVE BLOCK SINGLE SHOT Routine 06/21/2024 7:05 AM EDT documented in this encounter Results * AN SINGLE LUMEN INTUBATION (06/21/2024 7:40 AM EDT) Moe Hodge CRNA - 06/21/2024 7:40 AM EDT Moe Francois CRNA 06/21/2024 7:56 AM Intubation Authorized by: Moe Francois CRNA Performed by: Moe Francois CRNA Date/Time: 06/21/2024 7:40 AM Urgency: elective Indications and Patient Condition Indications for airway management: anesthesia and airway protection Spontaneous Ventilation: absent Sedation level: general anesthesia Preoxygenated: yes Patient position: sniffing MILS maintained throughout: yes Mask difficulty assessment: 1 - vent by mask (LMA) Planned trial extubation: yes Final Airway Details Final airway type: endotracheal airway Endotracheal tube type: ETT Cuffed: yes Successful intubation technique: direct laryngoscopy Facilitating devices/methods: intubating stylet Endotracheal tube insertion site: oral Blade: Liam Blade size: #3 ETT size (mm): 7.0 Cormack-Lehane Classification: grade IIa - partial view of glottis Placement verified by: chest auscultation and capnometry Measured from: lips ETT to lips (cm): 21 Number of attempts at approach: 1 Number of other approaches attempted: 0 Additional Comments Easy intubation after LMA removal us Moe Francois CRNA ANESTHESIA ORDERABLES Final Result * AN SINGLE LUMEN INTUBATION (06/21/2024 7:37 AM EDT) Moe Hodge CRNA - 06/21/2024 7:37 AM EDT Moe Francois CRNA 06/21/2024 7:55 AM Intubation Authorized by: Moe Francois CRNA Performed by: Moe Francois CRNA Date/Time: 06/21/2024 7:37 AM Urgency: elective Indications and Patient Condition Indications for airway management: anesthesia Spontaneous Ventilation: absent Sedation level: general anesthesia Preoxygenated: yes Patient position: sniffing MILS maintained throughout: yes Mask difficulty assessment: 0 - not attempted Planned trial extubation: yes Final Airway Details Final airway type: supraglottic airway Supraglottic airway type: classic Size: 4 Number of attempts at approach: 1 Number of other approaches attempted: 0 Additional Comments Decided to pull LMA after a few minutes. Tidal volumes <200 with [id number] peak pressure, SpO2 started to taper down, reached 93%. Rocuronium IV then intubated successfully, see additional intubation note us Moe Francois CRNA ANESTHESIA ORDERABLES Final Result * HC PERIPHERAL NERVE BLOCK SINGLE SHOT (06/21/2024 7:05 AM EDT) Dmitriy Dunne MD - 06/21/2024 7:05 AM EDT Dmitriy Long MD 06/21/2024 8:56 AM Peripheral Nerve Block Authorized by: Moe Francois CRNA Performed by: Dmitriy Long MD Patient location during procedure: pre-op Start time: 06/21/2024 7:05 AM End time: 06/21/2024 7:23 AM Reason for block: procedure for pain, at surgeon's request and post-op pain management Preanesthetic Checklist Completed: patient identified, IV checked, site marked, risks and benefits discussed, surgical consent, monitors and equipment checked, pre-op evaluation and timeout performed Peripheral Block Patient position: supine Prep: ChloraPrep Patient monitoring: heart rate, shelter monitor and continuous pulse ox Block type: adductor canal (+ Superior Lat Genicular/NVI/SMG/IMG) Laterality: left Injection technique: single-shot Guidance: ultrasound guided Local infiltration: lidocaine Needle Needle type: short-bevel Needle localization: ultrasound guidance Test dose: negative Medications Administered bupivacaine 0.25%-EPINEPHrine (MARCAINE w/ EPI) injection - perineural 20 mL - 06/21/2024 7:05:00 AM dexmedeTOMIDine (PRECEDEX) injection 200 mcg/2 mL - perineural 50 mcg - 06/21/2024 7:05:00 AM Assessment Injection assessment: negative aspiration for heme, no paresthesia on injection, incremental injection and local visualized surrounding nerve on ultrasound Paresthesia pain: none Heart rate change: no Slow fractionated injection: yes Additional Notes AGENTS: 0.25% Bupiv with 1/200k epi for Geniculars (5cc X4) // 0.5% Bupiv with 1/200k epi 20cc + 50mcg Precedex for Adductor (Bup would not scan) The risks/benefits/alternatives were discussed with patient ( and family). It was agreed to proceed with a regional nerve block and sites were marked. After Timeout, sedation was begun (see Anes record for agents). Chloraprep was used for skin cleansing. Ultrasound was used to identify neural/ vascular/ bony landmarks/ fascial planes. Skin was infiltrated with local anesthetic. AGENTS were injected in divided 3-5cc increments with negative aspirations (after assuring there were no paresthesias from the needle). The SLGN/NVI/SMG was perormed just superior and lateral to patella after contact with Femur bone-- SMG next to Tibia. Adductor was then performed in standard fashion with care to identify NVM. There was no evidence of IN nor IV injection with either. The procedure was well tolerated with no evidence of complications. See attached images uploaded to MEDIA via [employer] ( due to [facility] not having an interface between the Son[employer] and Radiology). us Moe Francois CRNA ANESTHESIA ORDERABLES Final Result documented in this encounter Visit Diagnoses Not on filedocumented in this encounter Administered Medications Inactive Administered Medications - up to 3 most recent administrations Medication Order MAR Action Action Date Dose Rate Site BUPivacaine-EPINEPHrine (MARCAINE w/EPI) 0.25 %-1:[id number] injection perineural, Starting on Fri06/21/24 at 0705, Anesthesia Intra-op Given 06/21/2024 7:05 AM EDT 20 mLs ceFAZolin in sterile water (ANCEF) 2 gram/20 mL syringe 2 g 2 g Once, intravenous, Administer over 3 Minutes, On Fri06/21/24 at 0700, For 1 dose, Administer within 60 minutes of incision or procedure start., Pre-op, Please choose an indication: Surgical Prophylaxis Given 06/21/2024 7:29 AM EDT 2 g dexAMETHasone (DECADRON) injection As needed, intravenous, Starting on Fri06/21/24 at 0736, Anesthesia Intra-op Given 06/21/2024 7:36 AM EDT 4 mg dexmedeTOMIDine (PRECEDEX) injection perineural, Starting on Fri06/21/24 at 0705, Anesthesia Intra-op Given 06/21/2024 7:05 AM EDT 50 mcg fentaNYL PF (SUBLIMAZE) injection As needed, intravenous, Starting on Fri06/21/24 at 0713, Anesthesia Intra-op Given 06/21/2024 7:36 AM EDT 100 mcg Given 06/21/2024 7:13 AM EDT 100 mcg glycopyrrolate (ROBINUL) injection As needed, intravenous, Starting on Fri06/21/24 at 0824, Anesthesia Intra-op Given 06/21/2024 9:14 AM EDT 0.4 mg Given 06/21/2024 8:24 AM EDT 0.2 mg ketamine (KETALAR) injection As needed, intravenous, Starting on Fri06/21/24 at 0913, Anesthesia Intra-op Given 06/21/2024 9:23 AM EDT 20 mg Given 06/21/2024 9:18 AM EDT 20 mg Given 06/21/2024 9:13 AM EDT 30 mg lactated Ringer's infusion 100 mL/hr Continuous, intravenous, Starting on Fri06/21/24 at 0700, Do not give simultaneously with ceftriaxone via a Y-site. New Bag 06/21/2024 8:37 AM EDT 100 mL/hr New Bag 06/21/2024 7:00 AM EDT 100 mL/hr lidocaine (XYLOCAINE) injection 2% As needed, intravenous, Starting on Fri06/21/24 at 0736, Anesthesia Intra-op Given 06/21/2024 7:36 AM EDT 60 mg midazolam (VERSED) injection As needed, intravenous, Starting on Fri06/21/24 at 0713, Anesthesia Intra-op Given 06/21/2024 7:13 AM EDT 2 mg neostigmine methylsulfate (PROSTIGMINE) injection As needed, intravenous, Starting on Fri06/21/24 at 0914, Anesthesia Intra-op Given 06/21/2024 9:14 AM EDT 3 mg ondansetron (ZOFRAN) injection As needed, intravenous, Starting on Fri06/21/24 at 0736, Anesthesia Intra-op Given 06/21/2024 7:36 AM EDT 4 mg propofol (DIPRIVAN) injection 10 mg/mL bolus As needed, intravenous, Starting on Fri06/21/24 at 0736, Anesthesia Intra-op Given 06/21/2024 7:36 AM EDT 200 mg rocuronium (ZEMURON) injection As needed, intravenous, Starting on Fri06/21/24 at 0739, Anesthesia Intra-op Given 06/21/2024 7:40 AM EDT 30 mg tranexamic acid (CYKLOKAPRON) injection As needed, intravenous, Starting on Fri06/21/24 at 0742, Anesthesia Intra-op Given 06/21/2024 8:43 AM EDT 1,000 mg Given 06/21/2024 7:42 AM EDT 1,000 mg documented in this encounter Care Teams Operations Recruiter Relationship Specialty Start Date End Date Gurjit Mena MD [address] [place] [address] PCP - General Family Medicine 06/17/24 documented as of this encounter
--- OUTSIDE RECORDS SUMMARY | 2024-06-21 07:30 | XMS_ITS | Encounter Summary ---
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 Procedures [place] ARTHRP KNE CONDYLE&PLATU MEDIAL&LAT COMPARTMENTS ARTHROPLASTY, KNEE, ROBOT-ASSISTED Fausto Jacobo MD [address] [place] [address] Phone: tel: fax: Referral ID Status Reason Start Date Expiration Date Visits Re quested Visits Authorized [id number] 06/08/2024 1 1 Encounter Details Date Type Department Care Team (Late st Contact Info) Description 06/21/2024 7:30 AM EDT - 06/21/2024 9:44 AM EDT Surgery [facility] Operating Room [address] [place] [phone] Fausto Jacobo MD [address] [place] [address] ARTHROPLASTY, KNEE, ROBOT-ASSISTED Social History Tobacco Use Types Packs/Day Years [...] your living situation today? I have a [facility] place to live 06/21/2024 Think about the [...] Do you speak a language other than U[place]ayan at [facility]? No 06/21/2024 Do you want [...] Sign Reading Time Taken Comments Blood Pressure 106/63 06/21/2024 9:41 AM EDT Pulse 74 06/21/2024 9:41 AM EDT Temperature 36.7 C (98.1 F) 06/21/2024 9:41 AM EDT Respiratory Rate 14 06/21/2024 9:41 AM EDT Oxygen Saturation 96% 06/21/2024 9:41 AM EDT Inhaled Oxygen Concentration 100% 06/21/2024 9 :41 AM EDT Weight 103 kg (227 lb) 06/21/2024 [...] Reason for Admission: Left knee osteoarthritis and LTKA Hospital Course: Admitted for Left total knee [...] Your Medications These medications were sent to [id number] - [place], [place] - [address], [place] [address] acetaminophen 500 MG tablet aspirin 81 MG [...] Discharge Follow UP: Contact information for follow-up [facility] [address] [place] [address] Next Steps: Go to Instructions: Walker provided by [facility] ([phone]). If you have any questions or concerns regarding your WALKER, please call them at [phone]. [facility] Outpatient Physical Therapy ([facility] Location) [facility] Outpatient Physical Therapy ([facility]) [address] [place] [phone] Next Steps: Go to Instructions: Outpatient physical therapy provided by [facility] Outpatient Physical Therapy ([facility]) [phone]. APPOINTMENT: Friday, June 23, 2024 at 8:45 am. If you have any questions or concerns, please call them at [phone]. Gurjit Mena MD Specialty: Family Medicine Relationship: PCP - General [facility] [address] [address] Next Steps: Follow up in 1 week(s) [...] Everywhere. * Fall Prevention in Hospitals Adult (Uruguayan) * Total Knee Replacement Care After Tmjk-lb-Lgnk (Uruguayan) * Infection Prevention in the Home (Uruguayan) * Pain Medicine Instructions Itim-ou-Tcvk (Uruguayan) documented in this encounter Medications at Time [...] as of this encounter Progress Notes * KRYSTAL Noyola - 06/22/2024 10:08 AM EDT Images from the original note were not included. Inpatient Occupational Therapy Treatment Note Patient Name: Ran Kamara Date of : 1975 Date of Treatment: 06/22/24 Start Time: 931 Stop Time: 1005 Session Duration: 34 minutes This patient is [...] KNEE, ROBOT-ASSISTED; Surgeon: Fausto Jacobo MD; Location: [facility]; Service: Orthopedic Surgery; Laterality: Left; General Visit type: Treatment Approved by: Nursing Patient disposition upon entry: Patient verified by name, Patient verified by date of , Supinein bed, All needs met and within reach, Call light/pull cord in reach, Head of bed >30 degrees, Nursing aware/notified Co-treated by: PT Assisted by: weatherization technician Precautions Weightbearing status: Weight bearing as [...] the patient's discharge summary. Electronically signed by Patti Flores OTR - 06/22/2024 - 10:08 AM EDT * Colette Avendano, PT - 06/22/2024 10:07 AM EDT Images [...] Date of Co-treated by: OT Assisted by: weatherization technician Precautions Weight-Bearing Status: Weight Bearing As [...] patient's discharge summary. Electronically signed by Colette Avendano PT - 06/22/24 - 10:07 AM EDT [...] at 06/22/2024 8:21 AM EDT * Colette Avendano, PT - 06/21/2024 1:23 PM EDT Images [...] KNEE, ROBOT-ASSISTED; Surgeon: Fausto Jacobo MD; Location: [facility]; Service: Orthopedic Surgery; Laterality: Left; General Visit Type: Initial Evaluation Approved By: Nurse Bearden Patient Disposition Upon Entry: Supine in bed, Call Light/Pull Cord in reach, All needs met and within reach, Nursing aware/notified, HOB >30 degrees, [place] hose on Patient Verified By: Name and Date of Co-treated by: OT Assisted by: weatherization technician Precautions Weight-Bearing Status: Weight Bearing As [...] the patient's discharge summary. * Anastacia Shen OTR/L - 06/21/2024 1:16 PM EDT Inpatient Occupational [...] KNEE, ROBOT-ASSISTED; Surgeon: Fausto Jacobo MD; Location: [facility]; Service: Orthopedic Surgery; Laterality: Left; General Visit type: Initial Evaluation Approved by: Nursing Patient disposition upon entry: Patient verified by name, Patient verified by date of , Supinein bed, All needs met and within reach, Call light/pull cord in reach, Head of bed >30 degrees, Nursing aware/notified Co-treated by: PT Assisted by: weatherization technician Precautions Weightbearing status: Weight bearing as [...] Toileting:Standby Assist, Contact guard assist Outcome Measures [facility] Daily Living Functional Assessment How [...] DME: no preference Therapy: Oupatient therapy ( [facility]) Per patient family/friends will be at home with her to help her recover. Patient/family provided with [facility] approved choice list and Patient choice letter along with Quality data link to access Medicare.gov Care Compare website to review potential post-acute providers. Choice provided to patient/family, and patient preferences received and referral(s) submitted to requested providers. Referral(s) submitted to: DME: no preference, [facility], [facility]. * Tiffanie Das RN - 06/21/2024 6:36 AM EDT Uses cpap at home documented in this encounter H&P Notes * Shobha Childs APRN - 06/21/2024 12:07 PM EDT Images from the original note were not included. History & Physical - Date of Service: 06/21/2024 Name: Ran Kamara Room: [address] [place] [address] : 1975 Age: 48 y.o. @ATTENDING@ Gurjit [...] KNEE, ROBOT-ASSISTED; Surgeon: Fausto Jacobo MD; Location: [facility]; Service: Orthopedic Surgery; Laterality: Left; Adhesive Social History Tobacco Use Smoking status: Never Smokeless tobacco: Never Substance Use Topics Alcohol use: Not Currently Family History Problem Relation Name Age of Onset Atrial fibrillation Mother Heart attack Father Hypertension Father Diabetes Sister Earl Syndrome (HNPCC) Brother Prior to Encounter Medication List (as reviewed in [facility]) Medications Ventolin HFA 90 mcg/actuation inhaler Si [...] XR knee 1 or 2 views left [[id number]] Collected: 06/21/24 1048 Order Status: Completed Updated: [...] mild risk and is being admitted to [facility] OP in a bed status. ELOS: Anticipate [...] 10:08 AM EDT NAME: Ran Kamara CSN: [id number] : 1975 PCP: Gurjit Mena MD REASON [...] no fatigue, no mood swings. Scribe Attestation: ISujatha CMA acted as a scribe and transcribed components of the current encounter under the direction of the Attending Provider. I have not been involved in providing any clinical treatments or patient care. Electronically Signed, Sujatha Simmons CMA OBJECTIVE There were no vitals filed [...] your prescription refills for excessive abuse or exterminator termite use. If necessary, you will be referred to sole painter. We will monitor your use of scheduled drugs through the KD program. In addition, we will follow the monitoring procedures required by the [facility]. The side effects of Schedule [...] Diabetic: Patient is not Diabetic Scribe Attestation: IVanessa RTR acted as a scribe and transcribed [...] PROCEDURES PERFORMED: Left total knee arthroplasty using NewComLink robotic assistance (Waterfalln system using cementless technology with cruciate retaining [...] and attached trackers and checkpoints for the NewComLink system and went through systematic registration until we had good correlation. Analysis revealed 7 degrees of chicken ranch varus with 4 degrees of hyperextension. We [...] standard tibial and femoral cuts using the NewComLink robotic system in sequence. With trial components [...] tolerated the procedure well without any complications. /[id number] Fausto Jacobo MD ASC/AQ / ASC / AQS /[id number] documented in this encounter Miscellaneous Notes * [...] Info) Description 08/02/2024 10:15 AM EDT Treatment [facility] OP Physical Therapy [address] [place] [phone] Du You, SURJIT 08/06/2024 10:15 AM EDT Treatment [facility] OP Physical Therapy [address] [place] [phone] Du You, PUTTY MIXER 09/07/2024 10:00 AM EDT Office Visit [facility] Orthopedics - [address] [phone] Fausto Jacobo MD [address] [place] [address] Scheduled Referrals Name Type Priority Associated Diagnoses [...] VIEWS LEFT STAT 06/21/2024 10:01 AM EDT [place] ARTHRP KNE CONDYLE&PLATU MEDIAL&LAT COMPARTMENTS 06/21/2024 7:29 AM EDT Traumatic arthritis of left knee Case Notes 0630Adhesive allergy TISSUE EXAM [facility] AP Routine 06/21/2024 7:13 AM EDT Traumatic arthritis of left knee documented in this encounter Results * (ABNORMAL) Hemoglobin and Hematocrit (06/22/2024 3:45 AM EDT) Hemoglobin 11.6(L) 11.7 - 15.8 GM/DL 06/22/2024 4:09 AM EDT [facility] Hematocrit 34.7(L) 35.0 - 47.0 % 06/22/2024 4:09 AM EDT [facility] Blood Venipuncture / Unknown 06/22/2024 3:45 AM EDT 06/22/2024 3:57 AM EDT us Fausto S Lizbeth RIZVI LAB BLOOD ORDERABLES Final Res ult [facility] [address] [place] [address] * XR knee 1 or 2 views [...] Ruiz. Transcribed by Lacie Edwards PA-C. Fausto Jacobo MD IMG DIAGNOSTIC IMAGING ORDERAB LES Final Result * Tissue Exam (06/21/2024 7:13 AM EDT) AP RESULT See Note: [facility] Comment: [facility] [address] [place] [address] or [phone] Noe Fuentes M.D., Retail Coverage Merchandiser PATIENT NAME LABORATORY NO. [id number] RAN KAMARA. [id number] AGE SEX SSN CLIENT REF # [place] [id number] 1975 F [id number] ELSINORE REQUESTING Emigdio ATTENDING Emigdio COPY TO. [address] [place] [address] DATE COLLECTED DATE RECEIVED DATE REPORTED 06/21/2024 06/21/2024 06/22/2024 DIAGNOSIS: A. BONE FRAGMENTS, GROSS ONLY, LEFT KNEE: GROSS DIAGNOSIS: Changes consistent with osteoarthritis B. HARDWARE, LEFT KNEE: GROSS DIAGNOSIS: Consistent with explanted hardware BG/sm CLINICAL HISTORY: Traumatic arthropathy, left knee SPECIMENS RECEIVED: A. BONE FRAGMENTS, GROSS ONLY, LEFT KNEE B. HARDWARE, LEFT KNEE Professional interpretation rendered by Paramjit Roldan M.D., F.C.A.P. at [employer], [place], [address] [place] [address]. GROSS DESCRIPTION: A. Received in formalin labeled [...] AND ELECTRONICALLY SIGNED BY: Paramjit Roldan M.D., F.C.A.P. CPT CODES: 12592o0 Bone STRUCTURE OF LEFT KNEE REGION / Unknown 06/21/2024 7:13 AM EDT Biomedical device (physical object) STRUCTURE OF LEFT KNEE REGION / Unknown 06/21/2024 9:07 AM EDT Fausto Jacobo MD PATHOLOGY/CYTOLOGY ORDERABLES Final Result [facility] [address] [place] [address] documented in this encounter Visit Diagnoses Diagnosis [...] Unspecified asthma Arthritis Unspecified arthropathy, site unspecified Traumatic arthritis of left knee documented in this encounter Admitting Diagnoses Diagnosis [...] no further options ordered., Phase II/On Unit iealteusdkw-AIC-nleOAYzae- ketorolac (R.E.C.K.) 2.46-0.005-0.0008-0.3 mg/mL- 50 mL syringe in NS FOR PERIARTICULAR USE As needed, Starting on Fri06/21/24 at 0813, Intra-op Given 06/21/2024 8:13 AM EDT 100 mLs Other sennosides (SENOKOT) tablet 17.2 mg 17.2 mg [...] 2:36 AM EDT 125 mL/hr 125 mL/hr tranexamic acid (CYKLOKAPRON) injection As needed, Starting on Fri06/21/24 at 0858, Intra-op Given 06/21/2024 8:58 AM EDT 1,000 mg Other traZODone (DESYREL) tablet 200 mg 200 mg Every Night PRN, oral, insomnia, Starting on Fri06/21/24 at 1206 Given 06/21/2024 9:15 PM EDT 200 mg vancomycin (VANCOCIN) injection As needed, Starting on Fri06/21/24 at 0813, Intra-op Given 06/21/2024 8:13 AM EDT 1,000 mg Left Knee documented in this encounter Active and Recently [...] Monisha Burciaga LVN)2030 (Given - Provider: Jaimie Gallardo RN) 811 (Given - Provider: Harmony Higginbotham LPN) ceFAZolin in sterile water (ANCEF) 2 gram/20 mL syringe 2 g (COMPLETED) 2 g Once, intravenous, Administer over 3 Minutes, On Fri06/21/24 at 0700, For 1 dose, Administer within 60 minutes of incision or procedure start., Pre-op, Please choose an indication: Surgical Prophylaxis 07 (Given - Provider: Moe Francois CRNA) ceFAZolin in sterile water (ANCEF) 2 gram/20 mL syringe 2 g (COMPLETED) 2 g Every 8 hours interval, intravenous, Administer over 3 Minutes, First dose on Fri06/21/24 at 1500, For 2 doses, PACU Cont. to Floor/ICU, Please choose an indication: Surgical Prophylaxis 1450 (Given - Provider: Monisha Burciaga LVN)2251 (Given - Provider: Jaimie Gallardo RN) celecoxib [...] waste bin. 2031 (Given - Provider: Jaimie Gallardo RN) famotidine (PEPCID) tablet 20 mg (COMPLETED) [...] THIS DOSAGE FORM *, Phase II/On Unit 1050 (Given - Provider: Monisha Burciaga LVN) 810 (Given - Provider: Harmony Higginbotham LPN) meloxicam (MOBIC) tablet 7.5 mg 7.5 mg Every 12 hours interval, oral, First dose on Fri06/22/24 at 0900, 1st line analgesic, Phase II/On Unit 08 (Given - Provid er: Harmony Higginbotham LPN) [...] THIS DOSAGE FORM *, Phase II/On Unit 1050 (Given - Provider: Monisha Burciaga LVN) 811 (Given - Provider: Harmony Higginbotham LPN) polyethylene glycol (GLYCOLAX) packet 17 g 17 g Daily, oral, First dose on Fri06/21/24 at 1100, Bowel Regimen - for prevention of constipation., Phase II/On Unit 1050 (Given - Provider: Monisha Burciaga LVN) 810 [...] no further options ordered., Phase II/On Unit diuntupholz-DQP-dszZIGazm-ke torolac (R.E.C.K.) 2.46-0.005-0.0008-0.3 mg/mL- 50 mL syringe [...] Unit documented in this encounter Care Teams Pouncing Lathe Operator Relationship Specialty Start Date End Date Gurjit Mena MD [address] [place] [address] [place] [id number] PCP - General Family Medicine 06/17/24 documented as of this encounter
--- OUTSIDE RECORDS SUMMARY | 2024-06-23 08:45 | XMS_ITS | Encounter Summary ---
Author Organization [employer] Address [address] [place] [address] Care Team Providers Care Quiller Hand Name Role Phone Gurjit Mena MD Primary Care Provider +1- [phone] Reason for Visit * Consultation (Routine) - Authorized Specialty Diagnoses / Procedures Referred By Wililam mata Referred To Contact Physical Therapy Diagnoses Status post left knee replacement Fausto Nieves MD [address] [place] [address] Phone: tel: fax: Referral ID Status Reason Start Date Expiration Date Visits Requested Visits Authorized [id number] Authorized Specialty Services Required 06/21/2024 08/20/2024 15 15 Encounter Details Date Type Department Care Team (Late st Contact Info) Description 06/23/2024 8:45 AM EDT Evaluation [facility] OP Physical Therapy [address] [place] [phone] Murali Bear, PT Status post left knee [...] Do you speak a language other than Nigerien at [place]? 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 Pain Current: 11/26 OBJECTIVE There were [...] Treatment (min): Physical Therapy Evaluation: Low Complexity (69654) Therapeutic Exercise (20481) 20 minutes ASSESSMENT Patient is a 48 [...] [facility] until her quad control improves. Patient will benefit from s [facility] physical therapy services to return to premorbid [...] the below stated problems/goals, using Therapeutic Exercise (54728), Therapeutic Activity (83999), Gait Training (14939), Manual Therapy (81539), Neuromuscular Re- education (88980), and Hot/Cold Packs 1x/Day. Skilled intervention required [...] Info) Description 08/02/2024 10:15 AM EDT Treatment [facility] OP Physical Therapy [address] [place] [phone] Delph[place] Marcellshainalizzie, CHASSIS MECHANIC 08/06/2024 10:15 AM EDT Treatment [facility] OP Physical Therapy [address] [place] [phone] Du oYu, CHASSIS MECHANIC 09/07/2024 10:00 AM EDT Office Visit [facility] Orth[facility]ics - [address] [phone] Fausto Nieves MD [address] [place] [address] documented as of this encounter Visit Diagnoses Diagnosis Status post left knee replacement with ANNA- Primary documented in this encounter Care Teams Quiller Hand Relationship Specialty Start Date End Date Gurjit Mena MD [address] [place] [address] PCP - General Family Medicine 06/17/24 documented as of this encounter
--- OUTSIDE RECORDS SUMMARY | 2024-06-28 17:23 | XMS_ITS | Encounter Summary ---
Author Organization [employer] Address [address] [place] [address] Care Team Providers Care Aircraft Manager Name Role Phone Gurjit Mena MD Primary Care Provider [phone] Reason for Visit * Reason Comments General Illness Pt presents to ED wi th chills, body aches and low body temp since last night.Pt had knee replacement on 06/21. Encounter Details Date Type Department Care Team (Late st Contact Info) Description 06/28/2024 5:23 PM EDT - 06/28/2024 8:04 PM EDT Emergency [facility] Emergency Department [address] [place] [phone] Essence Michaud MD [address] [place], [place] [id number] Acute pain of left knee (Primary Dx) [...] Do you speak a language other than Lao at [facility]? No 06/21/2024 Do you want help with [...] Care Everywhere. * Acute Knee Pain Adult (Lao) documented in this encounter Medications at Time [...] KNEE, ROBOT-ASSISTED; Surgeon: Fausto Nieves MD; Location: [facility]; Service: Orthopedic Surgery; Laterality: Left; Family History [...] ED Course as of 06/28/242003June 28, [id number] Michaud: I saw the patient [id number]. I performed a substantive portion of the [...] Surgery - Spine, Orthopedic Surgery - Shoulder [address] [place] [id number] Next Steps: Call in 1 day(s) Instructions: Follow-up in the office tomorrow documented in this encounter Plan of Treatment Upcoming Encounters Date Type Department Care Team (Late st Contact Info) Description 08/02/2024 10:15 AM EDT Treatment [facility] OP Physical Therapy [address] [place] [phone] Du You, SURJIT 08/06/2024 10:15 AM EDT Treatment [facility] OP Physical Therapy [address] [place] [phone] CovingtonDu flowers, SURJIT 09/07/2024 10:00 AM EDT Office Visit [facility] - [address] [phone] Fausto Nieves MD [address] [id number] documented as of this encounter Procedures Procedure [...] C-Reactive Protein (06/28/2024 5:32 PM EDT) Pathologist [facility] CRP 4.44(H) 0.05 - 0.25 mg/dL 06/28/2024 6:08 PM EDT [facility] Blood Venipuncture / Unknown 06/28/2024 5:32 PM EDT 06/28/2024 5:37 PM EDT Melvin Yee APRN LAB BLOOD ORDERABLES Final Result Performing Organization Address City/[facility]/ZIP Co de Phone Number [facility] [address] [place] [address] * Lactic Acid with reflex (SJ) (06/28/2024 5:32 PM EDT) [facility] Lactic Acid Level (mmol/L) 0.9 0.4 - 2.0 mmol/L 06/28/2024 6:03 PM EDT [facility] Comment:If a Lactic Acid Lev el with Reflex if Indicated result is greater than 2.0, a Lactic Acid Level will be ordered to be collected 2 hours after the original collection time. Blood Venipuncture / Unknown 06/28/2024 5:32 PM EDT 06/28/2024 5:37 PM EDT Melvin Yee APRN LAB BLOOD ORDERABLES Final Result Performing Organization Address City/[facility]/ZIP Co de Phone Number [facility] [address] [place] [address] * (ABNORMAL) Comprehensive metabolic panel (06/28/2024 5:32 PM EDT) Sodium 139 136 - 145 meq/L 06/28/2024 6:08 PM EDT [facility] Potassium 4.6 3.5 - 5.1 meq/L 06/28/2024 6:08 PM EDT [facility] Chloride 106 98 - 107 meq/L 06/28/2024 6:08 PM EDT [facility] CO2 25 21 - 32 meq/L 06/28/2024 6:08 PM EDT [facility] Calcium 9.0 8.5 - 10.1 mg/dL 06/28/2024 6:08 PM EDT [facility] Glucose 90 70 - 99 mg/dL 06/28/2024 6:08 PM EDT [facility] BUN 14 7 - 18 mg/dL 06/28/2024 6:08 PM EDT [facility] Creatinine 0.87 0.55 - 1.10 mg/dL 06/28/2024 6:08 PM EDT [facility] BUN/Creatinine 16 06/28/2024 6:08 PM EDT [facility] Albumin 3.1(L) 3.4 - 5.0 g/dL 06/28/2024 6:08 PM EDT [facility] Alkaline Phosphatase 102 46 - 116 U/L 06/28/2024 6:08 PM EDT [facility] ALT 32 12 - 78 U/L 06/28/2024 6:08 PM EDT [facility] AST 42(H) 15 - 37 U/L 06/28/2024 6:08 PM EDT [facility] Total Bilirubin 0.7 0.2 - 1.0 mg/dL 06/28/2024 6:08 PM EDT [facility] Protein, Total 7.3 6.4 - 8.2 gm/dL 06/28/2024 6:08 PM EDT [facility] Anion Gap 13 11 - 22 06/28/2024 6:08 PM EDT [facility] A/G Ratio 0.7 06/28/2024 6:08 PM EDT [facility] Globulin 4.2 g/dL 06/28/2024 6:08 PM EDT [facility] Osmolality Calc 277.5 mOsm/kg 6:08 PM EDT [facility] eGFR (mL/min/1.73m2) >60 >=60 mL/min/1.7 3m2 06/28/2024 6:08 PM EDT [facility] Comment:ESTIMATED GFR IS NOT ACCURATE CREATININE CLEARANCE IN PREDICTING GLOMERULAR FILTRATION RATE. ESTIMATED GFR IS NOT APPLICABLE FOR DIALYSIS PATIENTS. Blood Venipuncture / Unknown 06/28/2024 5:32 PM EDT 06/28/2024 5:37 PM EDT Melvin Yee TILE EDGER LAB BLOOD ORDERABLES Final Result Performing Organization Address City/State/[facility] Co de Phone Number [facility] [address] [place] [address] * (ABNORMAL) CBC with Auto Diff (06/28/2024 5:32 PM EDT) WBC 8.3 4.8 - 10.8 K/ L 06/28/2024 5:41 PM EDT [facility] RBC 3.88 3.50 - 5.20 M/ L 06/28/2024 5:41 PM EDT [facility] Hemoglobin 11.8 11.7 - 15.8 GM/DL 06/28/2024 5:41 PM EDT [facility] Hematocrit 35.1 35.0 - 47.0 % 06/28/2024 5:41 PM EDT [facility] MCV 91 81 - 101 fL 06/28/2024 5:41 PM EDT [facility] MCH 30.4 27.0 - 34.0 pg 06/28/2024 5:41 PM EDT [facility] MCHC 33.6 32.0 - 36.0 GM/DL 06/28/2024 5:41 PM EDT [facility] RDW 12.5 11.5 - 14.5 % 06/28/2024 5:41 PM EDT [facility] Platelets 365 150 - 400 K/CU MM 06/28/2024 5:41 PM EDT [facility] MPV 9.6 9.4 - 12.4 fL 06/28/2024 5:41 PM EDT [facility] Nucleated Red Blood Cell 0.0 0 - 0.2 % 06/28/2024 5:41 PM EDT [facility] % Neutros 57 37 - 80 % 06/28/2024 5:41 PM EDT [facility] % Lymphs 29 10 - 50 % 06/28/2024 5:41 PM EDT [facility] % Monos 8 5 - 13 % 06/28/2024 5:41 PM EDT [facility] % Eos 6 0 - 7 % 06/28/2024 5:41 PM EDT [facility] % Baso 1 0 - 3 % 06/28/2024 5:41 PM EDT [facility] NRBC Absolute <0.01 0 - 0.012 K/ul 06/28/2024 5:41 PM EDT [facility] # Neutros 4.68 2.00 - 6.90 K/ L 06/28/2024 5:41 PM EDT [facility] # Lymphs 2.37 0.60 - 3.40 K/ L 06/28/2024 5:41 PM EDT [facility] # Monos 0.62 0.00 - 0.90 K/ L 06/28/2024 5:41 PM EDT [facility] # Eos 0.48 0.00 - 0.70 K/ L 06/28/2024 5:41 PM EDT [facility] # Baso 0.05 0.00 - 0.20 K/ L 06/28/2024 5:41 PM EDT [facility] Immature Granulocytes-Re lative 1.00 % 06/28/2024 5:41 PM EDT [facility] # IG 0.08(H) 0.00 - 0.00 K/uL 06/28/2024 5:41 PM EDT [facility] Blood Venipuncture / Unknown 06/28/2024 5:32 PM EDT 06/28/2024 5:37 PM EDT Narrative [facility] - 06/28/2024 5:41 PM EDT [...] Atypical Lymph flag noted us Melvin Yee TILE EDGER LAB BLOOD ORDERABLES Final Result [facility] [address] [place] [address] documented in this encounter Visit Diagnoses Diagnosis [...] Miguel) documented in this encounter Care Teams Aircraft Manager Relationship Specialty Start Date End Date Gurjit Mena MD [address] [place] [id number] PCP - General Family Medicine 06/17/24 documented as of this encounter
--- OUTSIDE RECORDS SUMMARY | 2024-07-02 10:30 | XMS_ITS | Encounter Summary ---
Author Organization [employer] Address [address] [place] [address] Care Team Providers Care Sample Shoe Inspector And Reworker Name Role Phone Gurjit Mena MD Primary Care Provider [phone] Fausto Nieves MD Unavailable [phone] Reason for Visit * Reason Comments S/p LTKA 06/21/24 Encounter Details Date Type Department Care Team (Late st Contact Info) Description 07/02/2024 10:30 AM EDT Office Visit [facility] Orthopedics - [address] [phone] Ermias Obando PA-C [address] [place] [address] S/P total knee arthroplasty, left DOS 06/21/2024 Social History Tobacco Use Types Packs/Day Years [...] Do you speak a language other than Nigerian at [facility]? No 06/21/2024 Do you want help with [...] Sign Reading Time Taken Comments Blood Pressure 120/73 07/02/2024 10:21 AM EDT Pulse 67 07/02/2024 10:21 AM EDT Temperature - - Respiratory Rate 18 07/02/2024 10:21 AM EDT Oxygen Saturation - - Inhaled Oxygen Concentration - - Weight 96.2 kg (212 lb) 07/02/2024 10:21 AM EDT Height 160 cm (5' 3 ) 07/02/2024 10:21 AM EDT Body Mass Index 37.55 07/02/2024 10:21 AM EDT documented in this encounter Progress Notes * Ermias Obando PA-C - 07/02/2024 10:30 AM EDT Images from the original note were not included. NAME: Ran Stonerholli Ayala CSN: [id number] : 1975 PCP: Gurjit Mena MD REASON FOR VISIT S/p LTKA 06/21/24 HPI Ran Ayala is a 48 y.o. female who presents today for a wound check on her left knee s/p LTKA. She presents today ambulating with a walker. She reports there is a small blister along her incision. She reports she is allergic to adhesives, and she fears she had a reaction to the bandages applied in the ED. She reports that she sought treatment at [facility] two days ago and they culturedher knee. She reports the cultures showed a local infection. She reports her incision has been red and swollen. She is treating with PT next door. She reports the ED did not prescribe any antibiotics. She rates her pain as 4/10 today. CURRENT MEDICATIONS Current Outpatient Medications Medication Instructions acetaminophen (TYLENOL [...] tablet, oral, Daily, ( Stress formula ) pantoprazole (PROTONIX) 40 mg, oral, Daily traZODone (DESYREL) 200 mg, Every Night PRN Ventolin HFA 90 mcg/actuation inhaler 2 puffs, inhalation, Every 4 hours PRN ALLERGIES Allergies Allergen Reactions Adhesive Rash and Swelling PAST MEDICAL/SURGICAL HISTORY Past Medical History: Diagnosis Date Anxiety Bradycardia Migraine FARHEEN on CPAP Past Surgical History: Procedure Laterality Date BREAST SURGERY duct removal CARDIAC SURGERY loop recorder CARPAL TUNNEL RELEASE Left SECTION x3 HYSTERECTOMY KNEE OPEN LATERAL RELEASE Bilateral multiple MAKOPLASTY,KNEE Left 06/21/2024 Procedure: ARTHROPLASTY, KNEE, ROBOT-ASSISTED; Surgeon: Fausto Nieves MD; Location: [facility]; Service: Orthopedic Surgery; Laterality: Left; SOCIAL HISTORY Social History Tobacco Use Smoking status: Never Smokeless tobacco: Never Substance Use Topics Alcohol use: Not Currently Drug use: Never FAMILY HISTORY Family History Problem Relation Name Age of Onset Atrial fibrillation Mother Heart attack Father Hypertension Father Diabetes Sister Eral Syndrome ([facility]) Brother REVIEW OF SYSTEMS General: [...] no anxiety, no fatigue, no mood swings. OBJECTIVE Vitals: 07/02/24 1021 BP: 120/73 Pulse: 67 Resp: 18 Weight: 96.2 kg (212 lb) Height: 1.6 m (5' 3 ) Ortho Exam Left Knee Exam Appearance: Swelling WNL postop, - deformity Palpation: Tender to palpation diffuse WNL postop ROM: 90 degrees of flexion, Full extension Strength: 4/5 Neurovascular: NVI, -Homans Skin: intact surgical incision, +ecchymosis, blanching, blister over the medial aspect of the incision IMAGING/OUTSIDE REPORTS Imaging reviewed today in office from previous encounter ASSESSMENT Problem List Items Addressed This Visit None Visit Diagnoses S/P total knee arthroplasty, left DOS 06/21/2024 DISCUSS: reviewed case with Dr. Nieves over the phone today; we feel infection is less likely at this time based on her exam and history (refer above for photo and exam). Educated patient on signs of infection, and if they appear, she understands that she needs to go to ED immediately. Will take care when covering her incision today to avoid adhesive material. PLAN Return for keep follow up appt with Dr Nieves on 07/06/24 with xr left knee. Rest Ice Return to Clinic if new or worse symptoms occur Watch for s/s of infection return to clinic if seen Sutures were not removed today will reevaluate at follow up Dressing removed today without complication Wound care discussed with patient WBAT Continue with PT Scribe Attestation: IGeorgette CMA/LXMO acted as a scribe and transcribed components of the current encounter under the direction of the Attending Provider. I have not been involved in providing any clinical treatments or patient care. Electronically Signed, JANE Garcia IErmias PA-C attest that I have examined the above patient. I have dictated the exam, diagnosis, and plan to the scribe listed above to be transcribed into this document. I have supplemented the above documentation as warranted. I attest that I have reviewed the above documentation in its entirety and concur. Electronically Signed, Ermias Obando PA-C 07/02/2024 9:06 AM Schuyler RANDOLPH / FLACO is undergoing an EHR [...] the patient's family member). Cosigned by Fausto Nieves MD at 07/05/2024 6:45 AM EDT documented in this encounter Plan of Treatment Upcoming Encounters Date Type Department Care Team (Late st Contact Info) Description 08/02/2024 10:15 AM EDT Treatment [facility] Physical Therapy [address] [place] [phone] Du You, SURJIT 08/06/2024 10:15 AM EDT Treatment [facility] OP Physical Therapy [address] [place] [phone] Du You, SURJIT 09/07/2024 10:00 AM EDT Office Visit [facility] Orthopedics - [address] [phone] Fausto Nieves MD [address] [place] [address] documented as of this encounter Visit Diagnoses Diagnosis S/P total knee arthroplasty, left DOS 06/21/2024 documented in this encounter Care Teams Sample Shoe Inspector And Reworker Relationship Specialty Start Date End Date Gurjit Mena MD [address] [facility] [address] [place] [address] PCP - General Family Medicine 06/17/24 Fausto Nieves MD [address] [place] [address] Orthopedic Surgery 06/30/24 documented as of this encounter
--- OUTSIDE RECORDS SUMMARY | 2024-07-06 09:00 | XMS_ITS | Encounter Summary ---
Author Organization [employer] Address [address] [place] [address] Care Team Providers Care Oncology Coordinator Name Role Phone Gurjit Mena MD Primary Care Provider [phone] Fausto Nieves MD Unavailable [phone] Reason for Visit * Consultation (Routine) - Authorized Specialty Diagnoses / Procedures Referred By William mata Referred To Contact Physical Therapy Diagnoses Status post left knee replacement Fausto Nieves MD [address] [place] [address] Phone: tel: fax: Referral ID Status Reason Start Date Expiration Date Visits Requested Visits Authorized [id number] Authorized Specialty Services Required 06/21/2024 08/20/2024 15 15 Encounter Details Date Type Department Care Team (Late st Contact Info) Description 07/06/2024 9:00 AM EDT Treatment [facility] OP Physical Therapy [address] [place] [phone] Fausto Nieves MD [address] [place] [address] Du You, SURJIT Status post left knee replacement with ANNA Social History Tobacco Use Types Packs/Day Years [...] your living situation today? I have a [facility] place to live 06/21/2024 Think about the [...] Do you speak a language other than Cook Islander at [facility]? No 06/21/2024 Do you want help with [...] as of this encounter Progress Notes * Du You, SURJIT - 07/06/2024 9:00 AM EDT Images from the original note were not included. Outpatient Physical Therapy Treatment Note 07/06/2024 Time In: 844 Time Out: 939 Ran Ayala 1975 48 y.o. 1. Status post left knee replacement with ANNA AMB REFERRAL TO PHYSICAL THERAPY EVALUATE, TREAT ANDPLAN OF CARE Referring Physician: Fausto Nieves MD Insurance: Payor: MEDICAID - MEDICAID [place] CARE / Plan: HUMANA MEDICAID / Product Type: *No Product type* / Visit # / Total Visits: SUBJECTIVE Patient reports mild pain in her knee this date. She reports she is using her CPM and heel prop at home. She reports her 2 week ortho follow up is directly after her PT session today. Pain: 05/27 OBJECTIVE INTERVENTIONS Therapeutic Exercise Sets x Repetitions Weight/Resistance Cues/Comments HEP Bike 5 minutes Fwd step ups 2 x 10 4 inches Shuttle press 2 x 10 5 c / 3 c Heel Prop 5 min [x] Heel Slides 3'/2' [x] Quad Sets 3 x 10 [x] Incline box stretch 5 x 15 sec [x] Hamstring Stretch 5 x 15 sec [x] LAQs 2 x 10 [] SLR's 2 x 10 [] Heel Raises 2 x [address] 2 x 10 ea Manual Therapy Patient seated EOB for PROM to left knee for flexion/extension x 8 minutes ASSESSMENT Multiple interventions introduced this session to promote left knee range of motion and strength. Patient was able to complete full revolutions on bike this session. Manual therapy completed this session to promote range of motion tolerance. Patient tolerated interventions well this session with nocomplaints of increased pain by end of session. Patient reported less pain by end of session to /10. Therex completed with mild difficulty resulting in rest periods throughout session as needed. Will continue to progress patient as she can tolerate. Skilled PT services required to return patient to premorbid level of function. PLAN Interventions: Continue Therapeutic Exercise (26799), Therapeutic Activity (26612), Gait Training (44760), and Manual Therapy (07910) Prognosis: Good Patient requires follow-up: Yes Total Treatment (min): 55' Timed Treatment (min): Therapeutic Exercise (73011) 47 minutes Manual Therapy (60158) 08 minutes Electronically signed: Du You PTA 07/06/2024, 9:41 AM documented in this encounter Plan of Treatment Upcoming Encounters Date Type Department Care Team (Late st Contact Info) Description 08/02/2024 10:15 AM EDT Treatment [facility] Physical Therapy [address] [place] [phone] Du You, PEDIATRIC PSYCHIATRIST 08/06/2024 10:15 AM EDT Treatment [facility] OP Physical Therapy [address] [place] [phone] Du You, PEDIATRIC PSYCHIATRIST 09/07/2024 10:00 AM EDT Office Visit [facility] Orthopedics - [address] [phone] Fausto Nieves MD [address] [place] [address] documented as of this encounter Visit Diagnoses Diagnosis Status post left knee replacement with ANNA documented in this encounter Care Teams Oncology Coordinator Relationship Specialty Start Date End Date Gurjit Mena MD [address] [place] [address] [place] [address] PCP - General Family Medicine 06/17/24 Fausto Nieves MD [address] [place] [address] Orthopedic Surgery 06/30/24 documented as of this encounter
--- OUTSIDE RECORDS SUMMARY | 2024-07-06 10:00 | XMS_ITS | Encounter Summary ---
Author Organization [employer] Address [address] [place] [address] Care Team Providers Care Senior Analysis Specialist Name Role Phone Gurjit Mena MD Primary Care Provider [phone] Fausto Nieves MD Unavailable [phone] Reason for Visit * Reason Comments Post-Op Follow-up zoe ALBA/ ANNA, DOS: 06/21/24 Encounter Details Date Type Department Care Team (Late st Contact Info) Description 07/06/2024 10:00 AM EDT Office Visit [facility] Orthopedics - [address] [address] Fausto Nieves MD [address] [place] [address] S/P total knee arthroplasty, left (Primary Dx) Social History Tobacco Use Types [...] harm? Never 06/21/2024 How often does anyone, atsia jewell family and friends, scream or curse [...] Isolated 0 06/21 Educational Attainment Answer Date Darrina rded Do you speak a language other than Chadian at [facility]? No 06/21/2024 Do you want help with [...] Sign Reading Time Taken Comments Blood Pressure 109/77 07/06/2024 10:04 AM EDT Pulse 64 07/06/2024 10:04 AM EDT Temperature - - Respiratory Rate - - Oxygen Saturation - - Inhaled Oxygen Concentration - - Weight 96.2 kg (212 lb) 07/06/2024 10:04 AM EDT Height 160 cm (5' 3 ) 07/06/2024 10:04 AM EDT Body Mass Index 37.55 07/06/2024 10:04 AM EDT documented in this encounter Progress Notes * Fausto Nieves MD - 07/06/2024 10:00 AM EDT NAME: Ran Ayala CSN: [id number] : 1975 PCP: Gurjit Mena MD REASON FOR VISIT Post-Op Follow-up ( zoe ALBA/ ANNA, DOS: 06/21/24) Is this Worker's Comp? No HPI Ran Aayla is a 48 y.o. female Established patient presents for post op follow up on LTKA, w/ ANNA, DOS: 06/21/24. Patient presents today assisted with a walker. Patient states she is doing Physical Therapy 2x a week. Patient statesshe has seen improvement and progress with therapy. Patient states she is in little pain today. Patient states she has been taking ibuprofen as needed for pain. Patient states she has swelling. Patient states she has been using ice as needed and elevation technique for swelling. Patient rates her pain today 10. Patient denies any signs of infection. CURRENT MEDICATIONS Current Outpatient Medications Medication Instructions aspirin 81 mg, oral, 2 times daily busPIRone (BUSPAR) 10 mg, 3 times daily cholecalciferol (VITAMIN D3) 125 mcg (5,000 unit) tablet 1 capsule, Daily escitalopram (LEXAPRO) 20 mg, oral, Daily estradioL [...] KNEE, ROBOT-ASSISTED; Surgeon: Fausto Nieves MD; Location: [facility]; Service: Orthopedic Surgery; Laterality: Left; SOCIAL HISTORY [...] depression, no anxiety, no fatigue, no mood swings Scribe Attestation: I, Jacob Blake CMA acted as a scribe and transcribed components of the current encounter under the direction of the Attending Provider. I have not been involved in providing any clinical treatments or patient care. Electronically Signed, Jacob Blake CMA OBJECTIVE Vitals: 07/06/24 1004 BP: 109/77 Pulse: 64 Weight: 96.2 kg (212 lb) Height: 1.6 m (5' 3 ) Ortho Exam Left Knee Exam General: Awake, Alert, Oriented x3, Well developed Appearance: Swelling WNL postop, - deformity Palpation: Tender to palpation diffuse WNL ROM: 105 degrees of flexion, Full Extension Strength: 4/5 Neurovascular: NVI, -Homans, + saphenous nerve skin disturbance Skin: no obvious drainage or erythema, small circular scab medial aspect of knee from previous post-op blister Gait: Abnormal ambulating with walker IMAGING/OUTSIDE REPORTS X-Rays were performed and interpreted today in office of left knee, 2 views weight bearing revealing: XR knee 1 or 2 views left Narrative: HISTORY: s/p LTKA Impression: maintained hardware without signs of acute bony abnormalities. Images personally reviewed and dictated by Ermias Obando PA-C under direct supervision of Dr. Fausto Nieves in office today. ASSESSMENT Problem List Items Addressed This Visit Other S/P total knee arthroplasty, left - Primary Relevant Orders XR knee 1 or 2 views left (Completed) PLAN Return in 2 months (on 09/05/2024) for zoe ALBA/ ANNA, DOS: 06/21/24. Rest Ice Elevate Return to Clinic if new or worse symptoms occur Watch for s/s of infection return to clinic if seen Physical Therapy continue Sutures removed today in office without complication Scar care/massage discussed with patient Activity as Tolerated Cane order dispensed in the office today Scribe Attestation: Vanessa De La Rosa RTR acted as a scribe and transcribed components of the current encounter under the direction of the Attending Provider. I have not been involved in providing any clinical treatments or patient care. Electronically Signed, OSMANI Esteban PA Attestation: Ermias De La Rosa PA-C examined, discussed diagnosis and treatment options, acted as a scribe and transcribed components of the current encounter under the direction of the AttendingProvider. Electronically SignedErmias PA-C 07/06/2024 Ermias Obando PA-C scribing for Fausto Nieves MD IFausto MD, have read and agree with the documentation that has been completed regarding this visit. By signing this record, I attest that the documentation was completed in my physical presence and is an accurate record of the encounter. Electronically Signed, Fausto Nieves MD 07/06/2024 10:47 AM EDT Schuyler RANDOLPH / FLACO is undergoing an [...] Info) Description 08/02/2024 10:15 AM EDT Treatment [facility] Physical Therapy [address] [place] [phone] Du You PTA 08/06/2024 10:15 AM EDT Treatment [facility] OP Physical Therapy [address] [place] [phone] Du You, CAR CHASER 09/07/2024 10:00 AM EDT Office Visit [facility] Orthopedics - [address] [phone] Fausto Nieves MD [address] [place] [address] documented as of this encounter Procedures Procedure Name Priority Date/Time Associated Diagnosis Comments XR KNEE 1 OR 2 VIEWS LEFT Routine 07/06/2024 10:03 AM EDT S/P total knee arthroplasty, left documented in this encounter Results * XR knee 1 or 2 views left (07/06/2024 10:03 AM EDT) Anatomical Region Laterality Modality Thigh, Knee, Leg X-Ray Impressions 07/06/2024 10:46 AM EDT maintained hardware without signs of acute bony abnormalities. Images personally reviewed and dictated by Ermias Obando PA-C under direct supervision of Dr. Fausto Nieves in office today. Narrative 07/06/2024 10:46 AM EDT HISTORY: s/p LTKA us Fausto Nieves MD IMG DIAGNOSTIC IMAGING ORDERAB LES Final Result documented in this encounter Visit Diagnoses Diagnosis S/P total knee arthroplasty, left- Primary documented in this encounter Care Teams Senior Analysis Specialist Relationship Specialty Start Date End Date Gurjit Mena MD [address] [place] [address] [place] [address] PCP - General Family Medicine 06/17/24 Fausto Nieves MD [address] [place] [address] Orthopedic Surgery 06/30/24 documented as of this encounter
--- OUTSIDE RECORDS SUMMARY | 2024-07-06 10:05 | XMS_ITS | Encounter Summary ---
Author Organization [employer] Address [address] [place] [address] Care Team Providers Care Data Center Technician Name Role Phone Gurjit Mena MD Primary Care Provider [phone]- [phone] Fausto Nieves MD Unavailable [phone] Encounter Details Date Type Department Care Team (Late st Contact Info) Description 07/06/2024 10:05 AM EDT Ancillary Procedure [facility] Orthopedics - [address] [phone] Fausto Nieves MD [address] [place] [address] Social History Tobacco Use Types Packs/Day Years [...] Do you speak a language other than [place] [facility]? No 06/21/2024 Do you want help with [...] Info) Description 08/02/2024 10:15 AM EDT Treatment [facility] OP Physical Therapy [address] [place] [phone] Du You, SURJIT 08/06/2024 10:15 AM EDT Treatment [facility] OP Physical Therapy [address] [place] [phone] Du You, SURJIT 09/07/2024 10:00 AM EDT Office Visit [facility] Orthopedics - [address] [address] Fausto Nieves MD [address] [place] [address] documented as of this encounter Procedures Procedure [...] on filedocumented in this encounter Care Teams Data Center Technician Relationship Specialty Start Date End Date Gurjit Mena MD [address] [place] [facility] [address] [place] [address] PCP - General Family Medicine 06/17/24 Fausto Nieves MD [address] [place] [address] Orthopedic Surgery 06/30/24 documented as of this encounter
--- OUTSIDE RECORDS SUMMARY | 2024-07-13 10:15 | XMS_ITS | Encounter Summary ---
Author Organization [employer] Address [address] [place] [address] Care Team Providers Care Senior Backup Administrator Name Role Phone Gurjit Mena MD Primary Care Provider [phone] Fausto Nieves MD Unavailable Reason for Visit * Consultation (Routine) - Authorized Specialty Diagnoses / Procedures Referred By William mata Referred To Contact Physical Therapy Diagnoses Status post left knee replacement Fausto Nieves MD [address] [place] [address] Phone: tel: fax: Referral ID Status Reason Start Date Expiration Date Visits Requested Visits Authorized [id number] Authorized Specialty Services Required 06/21/2024 08/20/2024 15 15 Encounter Details Date Type Department Care Team (Late st Contact Info) Description 07/13/2024 10:15 AM EDT Treatment [facility] OP Physical Therapy [address] [place] [phone] Murali Bear, PT Status post left knee [...] Do you speak a language other than Brazilian at [place]? No 06/21/2024 Do you [...] Progress Notes * Murali Bear, PT - 07/13/2024 10:15 AM EDT Images from the original note were not included. Outpatient Physical Therapy Treatment Note 07/13/2024 Time In: 1018 Time Out: 1103 Ran Jones Lucy 1975 48 y.o. 1. Status post left knee replacement with ANNA Referring Physician: Fausto Nieves MD Insurance: Payor: MEDICAID - MEDICAID [place] CARE / Plan: HU[employer] MEDICAID / Product Type: *No Product type* / Visit # / Total Visits: SUBJECTIVE Patient reports she is feeling pretty good today after having a very active weekend. Pain: 2/ OBJECTIVE INTERVENTIONS Therapeutic Exercise Sets x Repetitions Weight/Resistance Cues/Comments HEP Bike 5 minutes Fwd step ups 2 x 10 4 inches Shuttle press 2 x 10 5 c / 3 c Heel Prop 5 min [x] Heel Slides 3'/2' [x] Quad Sets 3 x 10 [x] Incline box stretch 5 x 15 sec [x] Hamstring Stretch 5 x 15 sec [x] LAQs 3 x 10 Not today [] SAQs 3 x 10 SLR's 3 x 10 [] Heel Raises 2 x [address] 2 x 10 ea Not today Manual Therapy Patient seated EOB for PROM to left knee for flexion/extension x 8 minutes ASSESSMENT Patient completed exercises to improve L knee mobility and strength. Therex was continued from lastsession with the addition of SAQ and for improved quad control. Patient reported increased pain levels with LAQ so these were deferred this date. Manual therapy was performed per patient tolerance toimprove her L knee mobility. Will continue to progress as tolerated. Patient will continue to benefit from skilled physical therapy services to return to premorbid mobility, strength and overall function. PLAN Interventions: Continue Therapeutic Exercise (87244), Therapeutic Activity (05929), Gait Training (49387), and Manual Therapy (63115) Prognosis: Good Patient requires follow-up: Yes Total Treatment (min): 45' Timed Treatment (min): Therapeutic Exercise (60106) 37 minutes Manual Therapy (26293) 8 minutes Electronically signed: Murali Bear PT 07/13/2024, 12:17 PM documented in this encounter Plan of Treatment Upcoming Encounters Date Type Department Care Team (Late st Contact Info) Description 08/02/2024 10:15 AM EDT Treatment [facility] OP Physical Therapy [address] [place] [phone] Du You, SURJIT 08/06/2024 10:15 AM EDT Treatment [facility] OP Physical Therapy [address] [place] [phone] Du You, POLICE DETECTIVE 09/07/2024 10:00 AM EDT Office Visit [facility] Orthopedics - [address] [phone] Fausto Nieves MD [address] [place] [address] documented as of this encounter Visit Diagnoses Diagnosis Status post left knee replacement with ANNA- Primary documented in this encounter Care Teams Senior Backup Administrator Relationship Specialty Start Date End Date Gurjit Mena MD [address] [facility] [address] [place] [address] PCP - General Family Medicine 06/17/24 Fausto Nieves MD [address] [place] [address] Orthopedic Surgery 06/30/24 documented as of this encounter
--- OUTSIDE RECORDS SUMMARY | 2024-07-15 20:48 | XMS_ITS | Encounter Summary ---
Author Organization [employer] Address [address] [place] [address] Care Team Providers Care Production Line Solderer Name Role Phone Gurjit Mena MD Primary Care Provider [phone] Fausto Nieves MD Unavailable [phone] Reason for Visit * Reason Comments Nausea Patient states she h as been nauseous x2 hours and had a bowel movement with blood in it about an hour ago Encounter Details Date Type Department Care Team (Late st Contact Info) Description 07/15/2024 8:48 PM EDT - 07/15/2024 11:00 PM EDT Emergency [facility] Emergency Department [address] [place] [phone] Patti English MD [address] [place] [address] Nausea with vomiting (Primary Dx); Diarrhea; Viral infection; Nausea and vomiting, unspecified vomiting type; Diarrhea, unspecified type Discharge Disposition: Home or Self Care Social [...] Do you speak a language other than Rwandan at ho me? No 06/21/2024 Do you [...] Sign Reading Time Taken Comments Blood Pressure 139/81 07/15/2024 10:58 PM EDT Pulse 58 07/15/2024 10:58 PM EDT Temperature 36.3 C (97.4 F) 07/15/2024 10:58 PM EDT Respiratory Rate 20 07/15/2024 10:58 PM EDT Oxygen Saturation 99% 07/15/2024 10:58 PM EDT Inhaled Oxygen Concentration - - Weight 93 kg (205 lb) 07/15/2024 8:52 PM EDT Height 160 cm (5' 3 ) 07/15/2024 8:52 PM EDT Body Mass Index 36.31 07/15/2024 8:52 PM EDT documented in this encounter Discharge Instructions * Attachments The following attachments cannot be sent through Care Everywhere. * Nausea and Vomiting Adult (Rwandan) * Diarrhea Adult Eajc-dd-Bhoc (Rwandan) * Viral Illness Adult (Rwandan) documented in this encounter Medications at Time [...] mouth daily. 30 tablet 06/23/2024 6 fluticasone furoate-vilanteroL (BREO ELLIPTA) 200-25 mcg/dose dsdv Inhale 1 [...] needed for shortness of breath or wheezing. dicyclomine (BENTYL) 20 mg tablet Take 1 tablet (20 mg total) by mouth 4 (four) times daily for 8 days. 30 tablet 07/15/2024 5 meloxicam (MOBIC) 15 MG tablet Take 1 tablet (15 mg total) by mouth daily for 30 doses. 30 tablet 06/22/2024 5 naproxen (NAPROSYN) 500 MG tablet Take 1 tablet (500 mg total) by mouth 2 (two) times daily with breakfast and dinner for 5 days. 10 tablet 07/15/2024 5 ondansetron (ZOFRAN-ODT) 4 MG disintegrating tablet Take 1 tablet (4 mg total) by mouth every 4 (four) hours as needed for nausea or vomiting for up to 7 days. 20 tablet 07/15/2024 pantoprazole (PROTONIX) 40 MG tablet Take 1 tablet (40 mg total) by mouth daily for 30 days. 30 tablet 06/22/2024 5 documented as of this encounter ED Notes * Patti English MD - 07/15/2024 9:14 PM EDT Subjective Chief Complaint: Nausea (Patient states she has been nauseous x2 hours and had a bowel movement with blood in it about an hour ago) HPI This is a 48-year-old female with history of anxiety who presents with a 2-hour history of nausea vomiting diarrhea after she ate dinner. She notes she was eating dinner when all of a sudden she developed abdominal pain. She went back to her camper and had nausea and vomiting and diarrhea. She called her mom who then brought her here. In regards to her hematochezia, she notes she has had this for months and she has been diagnosed with hemorrhoids. She is here predominantly for her nausea vomiting diarrhea. Patient History Past Medical History: Diagnosis Date Anxiety Bradycardia Migraine FARHEEN on CPAP Past Surgical History: Procedure Laterality Date BREAST SURGERY duct removal CARDIAC SURGERY loop recorder CARPAL TUNNEL RELEASE Left SECTION x3 HYSTERECTOMY KNEE OPEN LATERAL RELEASE Bilateral multiple MAKOPLASTY,KNEE Left 06/21/2024 Procedure: ARTHROPLASTY, KNEE, ROBOT-ASSISTED; Surgeon: Fausto Nieves MD; Location: [facility]; Service: Orthopedic Surgery; Laterality: Left; Family History [...] needed. Review of Systems Review of Systems Physical Exam ED Triage Vitals 07/15/242051 Encounter Vitals Group BP 134/78 Systolic BP Percentile Diastolic BP Percentile Pulse 65 Resp 15 Temp 97.4 ??F (36.3 ??C) Temp src Tympanic SpO2 98 % Weight 93 kg (205 lb) Height 1.6 m (5' 3 ) Head Circumference Peak Flow Pain Score Zero Pain Loc Pain Education Exclude from Growth Chart Vitals: 07/15/242051 BP: 134/78 BP Location: Right arm Patient Position: Sitting Pulse: 65 Resp: 15 Temp: 97.4 ??F (36.3 ??C) TempSrc: Tympanic SpO2: 98% Weight: 93 kg (205 lb) Height: 1.6 m (5' 3 ) Physical Exam Neurological Exam Ortho Exam GENERAL: Well-developed, well-nourished HEENT: Normocephalic, atraumatic. Dry mucous membranes NECK: No signs of meningismus. Flexion, extension, abduction, adduction intact. No tracheal deviation. HEART: Regular rate LUNGS: No respiratory distress ABDOMEN: Soft, no abdominal tenderness, no flank tenderness, nondistended. No peritonitis, guarding, rebound. EXTREMITIES: Moving all four extremities with no acute deformity or joint effusions NEURO: Alert, awake, and oriented to person, place, and time. ED Course & MDM Medications lactated ringers (LR) bolus 1,000 mL (1,000 mLs intravenous New Bag 07/15/242121) ondansetron (ZOFRAN) injection 4 mg (4 mg intravenous Given 07/15/242121) ketorolac (TORADOL) injection 15 mg (15 mg intravenous Given 07/15/242121) Results for orders placed or performed during the hospital encounter of 07/15/24 CBC with Auto Diff Result Value Ref Range WBC 8.1 4.8 - 10.8 K/??L RBC 4.14 3.50 - 5.20 M/??L Hemoglobin 12.8 11.7 - 15.8 GM/DL Hematocrit 38.1 35.0 - 47.0 % MCV 92 81 - 101 fL MCH 30.9 27.0 - 34.0 pg MCHC 33.6 32.0 - 36.0 GM/DL RDW 12.5 11.5 - 14.5 % Platelets 323 150 - 400 K/CU MM MPV 10.6 9.4 - 12.4 fL Nucleated Red Blood Cell 0.0 0 - 0.2 % % Neutros 54 37 - 80 % % Lymphs 33 10 - 50 % % Monos 7 5 - 13 % % Eos 5 0 - 7 % % Baso 1 0 - 3 % NRBC Absolute <0.01 0 - 0.012 K/ul # Neutros 4.39 2.00 - 6.90 K/??L # Lymphs 2.70 0.60 - 3.40 K/??L # Monos 0.53 0.00 - 0.90 K/??L # Eos 0.42 0.00 - 0.70 K/??L # Baso 0.04 0.00 - 0.20 K/??L Immature Granulocytes-Relative 0.40 % # IG 0.03 (H) 0.00 - 0.00 K/uL Basic Metabolic Panel Result Value Ref Range Sodium 135 (L) 136 - 145 meq/L Potassium 3.7 3.5 - 5.1 meq/L Chloride 103 98 - 107 meq/L CO2 26 21 - 32 meq/L Anion Gap 10 (L) 11 - 22 BUN 8 7 - 18 mg/dL Creatinine 1.01 0.55 - 1.10 mg/dL BUN/Creatinine 8 Glucose 113 (H) 70 - 99 mg/dL Calcium 8.9 8.5 - 10.1 mg/dL Osmolality Calc 269.2 mOsm/kg eGFR (mL/min/1.73m2) >60 >=60 mL/min/1.73m2 Hepatic function panel Result Value Ref Range Protein, Total 7.4 6.4 - 8.2 gm/dL Albumin 3.5 3.4 - 5.0 g/dL Total Bilirubin 0.3 0.2 - 1.0 mg/dL Bilirubin, Direct 0.1 0.1 - 0.2 mg/dL Alkaline Phosphatase 128 (H) 46 - 116 U/L Globulin 3.9 g/dL A/G Ratio 0.9 AST 20 15 - 37 U/L ALT 15 12 - 78 U/L Lipase Result Value Ref Range Lipase 18 16 - 77 U/L Urinalysis, Reflex Microscopic and Culture If Indicated Result Value Ref Range Color, UA Straw Clarity, UA Clear Specific Kiron, UA 1.020 1.002 - 1.030 pH, UA 6.0 5.0 - 9.0 Leukocytes, UA Negative Negative Nitrite, UA Negative Negative Protein, UA Negative Negative Glucose, UA Negative Negative Ketones, UA Negative Negative Bilirubin, UA Negative Negative Blood, UA Negative Negative Urobilinogen, UA 0.2 mg/dL Normal Specimen Source Urine, Clean Catch No orders to display Procedures Medical Decision Making Amount and/or Complexity of Data Reviewed Labs: ordered. Risk Prescription drug management. This is a 48-year-old female with past medical history significant for anxiety who presents with concerns of acute viral GI illness, nausea vomiting diarrhea. Vitals on presentation are reassuring. Labs and imaging as above. My differential includes but is not limited to ACS, PE, pneumothorax, tamponade, cholecystitis, appendicitis, pancreatitis, perforated ulcer GERD. Patient was treated symptomatically with success. Encourage PCP follow-up. Patient has benign abdomen, with reassuring labs, donot leave imaging is warranted at this time. Clinically also suspect acute viral syndrome given brevity of symptoms. Patient and family were understanding and in agreement with this. Assessment & Plan Clinical Impression Diagnosis Comment Added By Time Added Nausea with vomiting Patti English MD 07/15/2024 10:48 PM Diarrhea Patti English MD 07/15/2024 10:48 PM Viral infection Patti English MD 07/15/2024 10:48 PM Disposition Discharge [1] - 07/15/2024 10:48 PM New Prescriptions DICYCLOMINE (BENTYL) 20 MG TABLET Take 1 tablet (20 mg total) by mouth 4 (four) times daily for 8 days. NAPROXEN (NAPROSYN) 500 MG TABLET Take 1 tablet (500 mg total) by mouth 2 (two) times daily with breakfast and dinner for 5 days. ONDANSETRON (ZOFRAN-ODT) 4 MG DISINTEGRATING TABLET Take 1 tablet (4 mg total) by mouth every 4 (four) hours as needed for nausea or vomiting for up to 7 days. Contact information for follow-up Grujit Mena MD Specialty: Family Medicine Relationship: PCP - General [address] [place] [address] [address] Next Steps: Call in 1 day(s) Instructions: Please call your PCP and follow-up appropriately Electronically Signed By Patti English MD 07/15/24 0896 documented in this encounter Plan of Treatment Upcoming Encounters Date Type Department Care Team (Late st Contact Info) Description 08/02/2024 10:15 AM EDT Treatment [facility] OP Physical Therapy [address] [place] [phone] Du You, FAMILY SERVICES MANAGER 08/06/2024 10:15 AM EDT Treatment [facility] OP Physical Therapy [address] [place] [phone] Du You, FAMILY SERVICES MANAGER 09/07/2024 10:00 AM EDT Office Visit [facility] - [address] [phone] Fausto Nieves MD [address] [place] [address] documented as of this encounter Procedures Procedure Name Priority Date/Time Associated Diagnosis Comments URINALYSIS, REFLEX MICROSCOPIC AND CULTURE IF INDICATED STAT 07/15/2024 10:18 PM EDT CBC W/ AUTO DIFF STAT 07/15/2024 9:21 PM EDT LIPASE STAT 07/15/2024 9:21 PM EDT HEPATIC FUNCTION PANEL STAT 07/15/2024 9:21 PM EDT BASIC METABOLIC PANEL STAT 07/15/2024 9:21 PM EDT documented in this encounter Results * Urinalysis, Reflex Microscopic and Culture If Indicated (07/15/2024 10:18 PM EDT) Color, UA Straw 07/15/2024 10:39 PM EDT [facility] Clarity, UA Clear 07/15/2024 10:39 PM EDT [facility] Specific Kiron, UA 1.020 1.002 - 1.030 07/15/2024 10:39 PM EDT [facility] pH, UA 6.0 5.0 - 9.0 07/15/2024 10:39 PM EDT [facility] Leukocytes, UA Negative Negative 07/15/2024 10:39 PM EDT [facility] Nitrite, UA Negative Negative 07/15/2024 10:39 PM EDT [facility] Protein, UA Negative Negative 07/15/2024 10:39 PM EDT [facility] Glucose, UA Negative Negative 07/15/2024 10:39 PM EDT [facility] Ketones, UA Negative Negative 07/15/2024 10:39 PM EDT [facility] Bilirubin, UA Negative Negative 07/15/2024 10:39 PM EDT [facility] Blood, UA Negative Negative 07/15/2024 10:39 PM EDT [facility] Urobilinogen, UA 0.2 mg/dL Normal 07/15/2024 10:39 PM EDT [facility] Specimen Source Urine, Clean Catch 07/15/2024 10:39 PM EDT [facility] Urine URINE SPECIMEN COLLECTION, CLEAN CATCH / Unknown 07/15/2024 10:18 PM EDT 07/15/2024 10:25 PM EDT Patti English MD URINE ORDERABLES Final Result Performing Organization Address City/[facility]/ZIP Co de Phone Number [facility] [address] [place] [address] * Lipase (07/15/2024 9:21 PM EDT) Lipase 18 16 - 77 U/L 07/15/2024 9:55 PM EDT [facility] Blood Venipuncture / Unknown 07/15/2024 9:21 PM EDT 07/15/2024 9:31 PM EDT Patti English MD LAB BLOOD ORDERABLES Final Resu lt [facility] [address] [place] [address] * (ABNORMAL) Hepatic function panel (07/15/2024 9:21 PM EDT) Protein, Total 7.4 6.4 - 8.2 gm/dL 07/15/2024 9:55 PM EDT [facility] Albumin 3.5 3.4 - 5.0 g/dL 07/15/2024 9:55 PM EDT [facility] Total Bilirubin 0.3 0.2 - 1.0 mg/dL 07/15/2024 9:55 PM EDT [facility] Bilirubin, Direct 0.1 0.1 - 0.2 mg/dL 07/15/2024 9:55 PM T [facility] Alkaline Phosphatase 128(H) 46 - 116 U/L 07/15/2024 9:55 PM EDT [facility] Globulin 3.9 g/dL 07/15/2024 9:55 PM [facility] A/G Ratio 0.9 07/15/2024 9:55 PM T [facility] AST 20 15 - 37 U/L 07/15/2024 9:55 PM T [facility] Comment:[employer] has become aware of sulfasalazine and sulfapyridine drug interference in the assays ALT, AST, T4, CKMB, glucose, and ammonia. The probability of misinterpretation of results for the assays is remote and would be limited to scenarios where a patient has taken the drug and had a blood sample drawn before clearance of the drug to a level that does not interfere with laboratory testing. Venipuncture should occur prior to administration of the drug. ALT 15 12 - 78 U/L 07/15/2024 9:55 PM EDT [facility] Comment:[employer] has become aware of sulfasalazine and sulfapyridine drug interference in the assays ALT, AST, T4, CKMB, glucose, and ammonia. The probability of misinterpretation of results for the assays is remote and would be limited to scenarios where a patient has taken the drug and had a blood sample drawn before clearance of the drug to a level that does not interfere with laboratory testing. Venipuncture should occur prior to administration of the drug. Blood Venipuncture / Unknown 07/15/2024 9:21 PM EDT 07/15/2024 9:31 PM EDT us Patti English MD LAB BLOOD ORDERABLES Final Resu lt [facility] [address] [place] [address], [facility] [phone] * (ABNORMAL) Basic Metabolic Panel (07/15/2024 9:21 PM EDT) Sodium 135(L) 136 - 145 meq/L 07/15/2024 9:55 PM EDT [facility] Potassium 3.7 3.5 - 5.1 meq/L 07/15/2024 9:55 PM EDT [facility] Chloride 103 98 - 107 meq/L 07/15/2024 9:55 PM EDT [facility] CO2 26 21 - 32 meq/L 07/15/2024 9:55 PM EDT [facility] Anion Gap 10(L) 11 - 22 07/15/2024 9:55 PM EDT [facility] BUN 8 7 - 18 mg/dL 07/15/2024 9:55 PM EDT [facility] Creatinine 1.01 0.55 - 1.10 mg/dL 07/15/2024 9:55 PM EDT [facility] BUN/Creatinine 8 07/15/2024 9:55 PM EDT [facility] Glucose 113(H) 70 - 99 mg/dL 07/15/2024 9:55 PM EDT [facility] Calcium 8.9 8.5 - 10.1 mg/dL 07/15/2024 9:55 PM EDT [facility] Osmolality Calc 269.2 mOsm/kg 9:55 PM EDT [facility] eGFR (mL/min/1.73m2) >60 >=60 mL/min/1.7 3m2 07/15/2024 9:55 PM EDT [facility] Comment:eGFR of <60 suggests chronic kidney disease if found over a 3 month period of time. eGFR <15 indicates renal failure. Blood Venipuncture / Unknown 07/15/2024 9:21 PM EDT 07/15/2024 9:31 PM EDT us Patti English MD LAB BLOOD ORDERABLES Final Resu lt [facility] [address] [place], [place] [id number] [phone] * (ABNORMAL) CBC with Auto Diff (07/15/2024 9:21 PM EDT) WBC 8.1 4.8 - 10.8 K/ L 07/15/2024 9:33 PM EDT [facility] RBC 4.14 3.50 - 5.20 M/ L 07/15/2024 9:33 PM EDT [facility] Hemoglobin 12.8 11.7 - 15.8 GM/DL 07/15/2024 9:33 PM EDT [facility] Hematocrit 38.1 35.0 - 47.0 % 07/15/2024 9:33 PM EDT [facility] MCV 92 81 - 101 fL 07/15/2024 9:33 PM EDT [facility] MCH 30.9 27.0 - 34.0 pg 07/15/2024 9:33 PM EDT [facility] MCHC 33.6 32.0 - 36.0 GM/DL 07/15/2024 9:33 PM EDT [facility] RDW 12.5 11.5 - 14.5 % 07/15/2024 9:33 PM EDT [facility] Platelets 323 150 - 400 K/CU MM 07/15/2024 9:33 PM EDT [facility] MPV 10.6 9.4 - 12.4 fL 07/15/2024 9:33 PM EDT [facility] Nucleated Red Blood Cell 0.0 0 - 0.2 % 07/15/2024 9:33 PM EDT [facility] % Neutros 54 37 - 80 % 07/15/2024 9:33 PM EDT [facility] % Lymphs 33 10 - 50 % 07/15/2024 9:33 PM EDT [facility] % Monos 7 5 - 13 % 07/15/2024 9:33 PM EDT [facility] % Eos 5 0 - 7 % 07/15/2024 9:33 PM EDT [facility] % Baso 1 0 - 3 % 07/15/2024 9:33 PM EDT [facility] NRBC Absolute <0.01 0 - 0.012 K/ul 07/15/2024 9:33 PM EDT [facility] # Neutros 4.39 2.00 - 6.90 K/ L 07/15/2024 9:33 PM EDT [facility] # Lymphs 2.70 0.60 - 3.40 K/ L 07/15/2024 9:33 PM EDT [facility] # Monos 0.53 0.00 - 0.90 K/ L 07/15/2024 9:33 PM EDT [facility] # Eos 0.42 0.00 - 0.70 K/ L 07/15/2024 9:33 PM EDT [facility] # Baso 0.04 0.00 - 0.20 K/ L 07/15/2024 9:33 PM EDT [facility] Immature Granulocytes-Re lative 0.40 % 07/15/2024 9:33 PM EDT [facility] # IG 0.03(H) 0.00 - 0.00 K/uL 07/15/2024 9:33 PM EDT [facility] Blood Venipuncture / Unknown 07/15/2024 9:21 PM EDT 07/15/2024 9:31 PM EDT Narrative [facility] - 07/15/2024 9:33 PM EDT When CBC w/ Auto Diff [...] Flag noted Atypical Lymph flag noted us Patti English MD LAB BLOOD ORDERABLES Final Resu lt [facility] [address] [id number], [facility] [phone] documented in this encounter Visit Diagnoses Diagnosis Nausea with vomiting- Primary Diarrhea Viral infection Nausea and vomiting, unspecified vomiting type Diarrhea, unspecified type documented in this encounter Administered Medications Inactive Administered Medications - up to 3 most recent administrations Medication Order MAR Action Action Date Dose Rate Site ketorolac (TORADOL) injection 15 mg 15 mg Once, intravenous, On Dawna 07/15/24 at 2110, For 1 dose Given 07/15/2024 9:22 PM EDT 15 mg lactated ringers (LR) bolus 1,000 mL 1,000 mL Once, intravenous, Administer over 1 Hours, On Dawna 07/15/24 at 2100, For 1 dose New Bag 07/15/2024 9:22 PM EDT 1,000 mLs ondansetron (ZOFRAN) injection 4 mg 4 mg Once, intravenous, On Dawna 07/15/24 at 2100, For 1 dose, For IV push, give over 2 - 5 minutes. Given 07/15/2024 9:22 PM EDT 4 mg documented in this encounter Active and Recently Administered Medications Times are shown in EDT. Scheduled Medication Order 07/13/2024 07/14/2024 07/15/2024 ketorolac (TORADOL) injection 15 mg (COMPLETED) 15 mg Once, intravenous, On Dawna 07/15/24 at 2110, For 1 dose 2121 (Given - Provid er: Lakesha Lopez RN) lactated ringers (LR) bolus 1,000 mL (COMPLETED) 1,000 mL Once, intravenous, Administer over 1 Hours, On Dawna 07/15/24 at 2100, For 1 dose 2121 (New Bag - Prov ider: Lakesha Lopez RN)2253 (Stopped - Provider: Lakesha Lopez RN) ondansetron (ZOFRAN) injection 4 mg (COMPLETED) 4 mg Once, intravenous, On Dawna 07/15/24 at 2100, For 1 dose, For IV push, give over 2 - 5 minutes. 2121 (Given - Provid er: Lakesha Lopez RN) documented in this encounter Care Teams Production Line Solderer Relationship Specialty Start Date End Date Gurjit Mena MD [address] [place] [address] PCP - General Family Medicine 06/17/24 Fausto Nieves MD [address] [place] [address] Orthopedic Surgery 06/30/24 documented as of this encounter
--- OUTSIDE RECORDS SUMMARY | 2024-07-20 09:30 | XMS_ITS | Encounter Summary ---
Author Organization [employer] Address [address] [place] [address] Care Team Providers Care Automotive Collision Estimator Name Role Phone Gurjit Mena MD Primary Care Provider [phone] Fausto Nieves MD Unavailable Reason for Visit * Consultation (Routine) - Authorized Specialty Diagnoses / Procedures Referred By William mata Referred To Contact Physical Therapy Diagnoses Status post left knee replacement Fausto Nieves MD [address] [place] [address] Phone: tel: fax: Referral ID Status Reason Start Date Expiration Date Visits Requested Visits Authorized [id number] Authorized Specialty Services Required 06/21/2024 08/20/2024 15 15 Encounter Details Date Type Department Care Team (Late st Contact Info) Description 07/20/2024 9:30 AM EDT Treatment [facility] OP Physical Therapy [address] [place] [phone] Murali Bear, PT Status post left knee [...] Do you speak a language other than Sierra Leonean at ho me? No 06/21/2024 Do you [...] overall function. PLAN Interventions: Continue Therapeutic Exercise (96624), Therapeutic Activity (67145), Gait Training (90744), and Manual Therapy (47434) Prognosis: Good Patient requires follow-up: Yes Total Treatment (min): 49' Timed Treatment (min): Therapeutic Exercise (84928) 40 minutes Manual Therapy (71546) 8 minutes Electronically signed: Murali Bear PT 07/20/2024, 10:21 AM documented in this encounter Plan of Treatment Upcoming Encounters Date Type Department Care Team (Late st Contact Info) Description 08/02/2024 10:15 AM EDT Treatment [facility] OP Physical Therapy [address] [place] [phone] Du You, SURJIT 08/06/2024 10:15 AM EDT Treatment [facility] OP Physical Therapy [address] [place] [phone] Du You PTA 09/07/2024 10:00 AM EDT Office Visit [facility] Orthopedics - [address] [phone] Fausto Nieves MD [address] [place] [address] documented as of this encounter Visit Diagnoses Diagnosis Status post left knee replacement with ANNA- Primary documented in this encounter Care Teams Automotive Collision Estimator Relationship Specialty Start Date End Date Gurjit Mena MD [address] [facility] [address] [place] [address] PCP - General Family Medicine 06/17/24 Fausto Nieves MD [address] [place] [address] Orthopedic Surgery 06/30/24 documented as of this encounter
--- OUTSIDE RECORDS SUMMARY | 2024-07-28 10:15 | XMS_ITS | Encounter Summary ---
Author Organization [employer] Address [address] [place] [address] Care Team Providers Care Compliance Tester Name Role Phone Gurjit Mena MD Primary Care Provider [phone] Fausto Nieves MD Unavailable [phone] Reason for Visit * Consultation (Routine) - Authorized Specialty Diagnoses / Procedures Referred By William mata Referred To Contact Physical Therapy Diagnoses Status post left knee replacement Fausto Nieves MD [address] [place] [address] Phone: tel: fax: Referral ID Status Reason Start Date Expiration Date Visits Requested Visits Authorized [id number] Authorized Specialty Services Required 06/21/2024 08/20/2024 15 15 Encounter Details Date Type Department Care Team (Late st Contact Info) Description 07/28/2024 10:15 AM EDT Treatment [facility] OP Physical Therapy [address] [place] [phone] Du You PTA Status post left knee replacement with ANNA [...] Do you speak a language other than Singaporean at [facility]? No 06/21/2024 Do you want help with [...] of this encounter Progress Notes * Du You PTA - 07/28/2024 10:15 AM EDT Images from the original note were not included. Outpatient Physical Therapy Treatment Note 07/28/2024 Time In: 937 Time Out: 1034 Ran Ayala 1975 48 y.o. 1. Status post left knee replacement with ANNA Referring Physician: Fausto Nieves MD Insurance: Payor: MEDICAID - MEDICAID [place] CARE / Plan: HUMANA MEDICAID / Product Type: *No Product type* / Visit # / Total Visits: SUBJECTIVE Patient reports her knee is sore today. Pain: 2/10 OBJECTIVE INTERVENTIONS Therapeutic Exercise Sets x Repetitions Weight/Resistance Cues/Comments HEP Bike 5 minutes Fwd step ups 3 x 10 4 inches Shuttle press 3 x 10 5 c / 5 c Heel Prop 5 min [x] Heel [...] 2 x 10 ea Not today TKEs 3 x 10 RTB Hamstring Curls 3 x 10 Manual Therapy Patient seated EOB for PROM to left knee for flexion/extension x 8 minutes Tests and Measures: See PT progress note ASSESSMENT Interventions continue to focus on improving strength and mobility throughout left knee. Increased resistance on shuttle press for single leg press to promote left knee strength. Patient tolerated interventions well overall with no reports of increased pain by end of session. Will attempt progressions once patient can tolerate. Patient will continue to benefit from skilled physical therapy services to restore patient to optimal level of functional mobility. See PT progress not for further assessment. PLAN Interventions: Continue Therapeutic Exercise (92473), Therapeutic Activity (93817), Gait Training (07514), and Manual Therapy (63855) Prognosis: Good Patient requires follow-up: Yes Total Treatment (min): 56' Timed Treatment (min): Therapeutic Exercise (98531) 48 minutes Manual Therapy (61115) 8 minutes Electronically signed: Du You PTA 07/28/2024, 10:52 AM * Murali Bear, PT - 07/28/2024 10:15 AM EDT Images from the original note were not included. Outpatient Physical Therapy Progress Note 07/28/2024 Ran Ayala 1975 48 y.o. 1. Status post left knee replacement with ANNA Referring Provider: Fausto Nieves MD Insurance: Payor: MEDICAID - MEDICAID [place] CARE / Plan: HUMANA MEDICAID / Product Type: *No Product type* / SUBJECTIVE Per FX ARTIST note, Patient reports her knee is sore today. Pain: 2 Location: L knee Description: Aching Symptoms since onset: Improved OBJECTIVE Test/Measurements Knee ROM (degrees) LEFT Flexion 100 Extension Lacking 1 Strength Knee LEFT Flexion 4+/5 Extension 4/5 Gait Weight bearing status: Weightbearing as Tolerated (WBAT) Assistive Device Used: None Assist Level: Independent Deviation Pattern: Left lower extremity antalgic Functional Outcome Measure: LEFS: 53/80 ASSESSMENT Patient has made good improvements since her LTKA on 06/21/2024. Her L knee ROM has improved significantly from 8-18 degrees at her first visit to 1-100 degrees today. Patient's L knee strength has also improved to 4/5 for extension and 4+/5 for flexion. Patient's LEFS has also improved from 8/80 at her initial eval to 53/80 today, indicating a significant improvement in subjective LE function for completing ALDs and recreational activities. She is no longer ambulating with an AD and demonstrates a slight antalgic gait pattern. Therex has continued to be progressed as expected and patient continues to tolerate treatments with mild difficulty. Patient will continue to benefit from skilled physical therapy services to return to premorbid mobility, strength and overall function. PLAN Ran Ayala requires skilled physical therapy services to address the below stated problems/goals, using Therapeutic Exercise (76905), Therapeutic Activity (14581), Gait Training (15193), Manual Therapy (12343), Neuromuscular Re- education (57793), and Hot/Cold Packs 1x/Day. Skilled intervention required [...] questions, Pt/CG demonstrated carry-over, and Handouts provided Long-Term Goals: Patient will demonstrate 4+/5 L knee flexion and extension strength for improved ability to navigate stairs in 12 weeks. (Not Met, Progressing: see objective above) Patient will improve L knee ROM to 0-110 degrees for improved gait mechanics in 12 weeks. (Not Met,Progressing: see objective above) LEFS will improve to 55/80 for significant improvement in subjective LE function for completing ADLs and work duties in 12 weeks. (Not Met, Progressin/80) Patient will be independent with discharge home exercise program to improve self-care ADL's, household ADL's, work tasks, and recreational activity. (Not Met, Progressing throughout POC) Plan of Care Certification Date: 06/23/2024 - 09/15/2024 Frequency/Duration: 2x/Week for 12 weeks Electronically signed by: Murali Bear PT 07/28/2024, 11:32 AM documented in this encounter Plan of Treatment Upcoming Encounters Date Type Department Care Team (Late st Contact Info) Description 08/02/2024 10:15 AM EDT Treatment [facility] OP Physical Therapy [address] [place] [phone] Du You, SURJIT 08/06/2024 10:15 AM EDT Treatment [facility] OP Physical Therapy [address] [place] [phone] Du You, FX ARTIST 09/07/2024 10:00 AM EDT Office Visit [facility] Orthopedics - [address] [phone] Fausto Nieves MD [address] [place] [address] documented as of this encounter Visit Diagnoses Diagnosis Status post left knee replacement with ANNA- Primary documented in this encounter Care Teams Compliance Tester Relationship Specialty Start Date End Date Gurjit Mena MD [address] [place] [address] PCP - General Family Medicine 06/17/24 Fausto Nieves MD [address] [place] [address] Orthopedic Surgery 06/30/24 documented as of this encounter
--- OUTSIDE RECORDS SUMMARY | 2024-07-30 10:15 | XMS_ITS | Encounter Summary ---
Author Organization [employer] Address [address] [place] [address] Care Team Providers Care Braid Cutter Name Role Phone Gurjit Mena MD Primary Care Provider [phone] Fausto Nieves MD Unavailable [phone] Reason for Visit * Consultation (Routine) - Authorized Specialty Diagnoses / Procedures Referred By William mata Referred To Contact Physical Therapy Diagnoses Status post left knee replacement Fausto Nieves MD [address] [place] [address] Phone: tel: fax: Referral ID Status Reason Start Date Expiration Date Visits Requested Visits Authorized [id number] Authorized Specialty Services Required 06/21/2024 08/20/2024 15 15 Encounter Details Date Type Department Care Team (Late st Contact Info) Description 07/30/2024 10:15 AM EDT Treatment [facility] OP Physical Therapy [address] [place] [phone] Du You PTA Status post left knee [...] language other than [place] Leonean at [place]? No 06/21/2024 Do you want help with [...] Progress Notes * Du You PTA - 07/30/2024 10:15 AM EDT Images from the original note were not included. Outpatient Physical Therapy Treatment Note 07/30/2024 Time In: 1000 Time Out: 1048 [address] Ayala 1975 48 y.o. 1. Status post left knee replacement with ANNA Referring Physician: Fausto Nieves MD Insurance: Payor: MEDICAID - MEDICAID MGD CARE / Plan: HUMANA MEDICAID / Product Type: *No Product type* / Visit # / Total Visits: SUBJECTIVE Patient reports her knee pain isn't too bad today. Pain: 04/26 OBJECTIVE INTERVENTIONS Therapeutic Exercise Sets x Repetitions Weight/Resistance Cues/Comments HEP Bike 5 minutes Fwd step ups 3 x 10 6 inches Shuttle press 3 x 10 7 c / 7 c Heel Prop 5 min [x] Heel Slides 3'/2' [x] Quad Sets 3 x 10 Not today [x] Incline box stretch 5 x 15 sec [x] Hamstring Stretch 5 x 15 sec [x] SAQs 3 x 10 2 # SLR's 3 x 10 [] Heel Raises 3 x [address] 2 x 10 ea TKEs 3 x 10 RTB Hamstring Curls 3 x 10 Manual Therapy Patient seated EOB for PROM to left knee for flexion/extension x 8 minutes not completed today due to patient AROM doing great ASSESSMENT Interventions continue to focus on improving strength and mobility throughout left knee. Therex progressed this session by increasing resistance for double and single leg shuttle press to promote left knee strength. Patient tolerated increased step height during forward step ups to further strengthen surrounding knee musculature. Added weight to SAQs to promote quadriceps strength. Patient tolerated interventions well this session without complaints of increased pain by end of session. Will attempt further progressions once patient can tolerate. Patient will continue to benefit from skilled physical therapy services to restore patient to optimal level of functional mobility and strength throughout left knee. PLAN Interventions: Continue Therapeutic Exercise (68017), Therapeutic Activity (24298), Gait Training (42060), and Manual Therapy (55623) Prognosis: Good Patient requires follow-up: Yes Total Treatment (min): 48' Timed Treatment (min): Therapeutic Exercise (45601) 48 minutes Electronically signed: Du You PTA 07/30/2024, 10:50 AM documented in this encounter Plan of Treatment Upcoming Encounters Date Type Department Care Team (Late st Contact Info) Description 08/02/2024 10:15 AM EDT Treatment [facility] OP Physical Therapy [address] [place] [phone] Du You PTA 08/06/2024 10:15 AM EDT Treatment [facility] OP Physical Therapy [address] [place] [phone] Du You PTA 09/07/2024 10:00 AM EDT Office Visit [facility] Orthopedics - [address] [phone] Fausto Nieves MD [address] [place] [address] documented as of this encounter Visit Diagnoses Diagnosis Status post left knee replacement with ANNA- Primary documented in this encounter Care Teams Braid Cutter Relationship Specialty Start Date End Date Gurjit Mena MD [address] [place] [address] PCP - General Family Medicine 06/17/24 Fausto Neives MD [address] [place] [address] Orthopedic Surgery 06/30/24 documented as of this encounter
[2024-08-01] VITALS (8 sets, daily range): BP systolic 108–130; BP diastolic 72–81; PULSE 53–68; RESP 9–16; TEMP 36.7; O2SAT 95–98; BMI 36.3
--- NOTE | 2024-08-01 | ECG_ITS ---
APPROVED REPORT Exam: Resting ECG HR:58 bpm ECG Measurements Heart Rate 58 AXES NV 200 P 46 QRSd 101 QRS 2 QT 434 T 26 QTc 432 Conclusion SINUS BRADYCARDIA BORDERLINE ECG Electronically signed by : MIYA HOUSTON, 08/02/2024 06:59:52
--- OUTSIDE RECORDS SUMMARY | 2024-08-01 21:08 | XMS_ITS | Clinical Summary ---
Author Organization [employer] [facility] Address [address] [place] [address] Phone Care Team Providers Care Payroll Tax Analyst Name Role Phone Unavailable Unavailable Conditions or Problems No information available. Medications No information available. Medications Administered No information available. Allergies, Adverse Reactions, Alerts No information available. Results No information available. Plan of Care No information available. Procedures No information available. Vital Signs No information available. Immunizations No information available. Advance Directives No information available.
--- OUTSIDE RECORDS SUMMARY | 2024-08-01 21:08 | XMS_ITS | Encounter Summary ---
Author Organization [employer] Address [address] [place] [address] Care Team Providers Care Hydroponics Worker Name Role Phone Gurjit Mena MD Primary Care Provider [phone] Fausto Nieves MD Unavailable [phone] Encounter Details Date Type Department Care Team (Latest Contact Info) Description 07/28/2024 Travel Social History Tobacco Use Types Packs/Day [...] speak a language other than [place]an at [facility]? No 06/21/2024 Do you want help with [...] Info) Description 08/02/2024 10:15 AM EDT Treatment [facility] OP Physical Therapy [address] [place] [phone] Du You, REFERRAL RN 08/06/2024 10:15 AM EDT Treatment [facility] OP Physical Therapy [address] [place] [phone] Du You, REFERRAL RN 09/07/2024 10:00 AM EDT Office Visit [facility] Orthopedics - [address] [phone] Fausto Nieves MD [address] [place] [phone] documented as of this encounter Visit Diagnoses Not on filedocumented in this encounter Care Teams Hydroponics Worker Relationship Specialty Start Date End Date Gurjit Mena MD [address] [place] [address] PCP - General Family Medicine 06/17/24 Fausto Nieves MD [address] [place] [address] Orthopedic Surgery 06/30/24 documented as of this encounter
--- OUTSIDE RECORDS SUMMARY | 2024-08-01 21:08 | XMS_ITS | Clinical Summary ---
Author Organization [facility] Address [address] [address] Phone Care Team Providers Care Quill Layer Name Role Phone Mandeep Beckham DO Primary Care Provider [phone] Allergies Active Allergy Reactions Criticality Noted Date [...] ipratropium (ATROVENT) 21 mcg (0.03 %) Nasl [place], Non-AerosolIndicat ions:Subacute cough 2 Sprays by Nasal [...] report completed 07/05/2022 Informed consent signed 07/05/[id number] Whitaker Controlled Medication Agreement signed 03/11/22 [...] (03/06/2022): Added automatically from request for surgery [id number] Screening for colon cancer 03/06/2022 0 07/03/2022 Overview (05/20/2022): Added automatically from request for surgery [id number] Chondromalacia of left patella 11/24/2020 02/22/2021 Overview (11/24/2020): Added automatically from request for surgery [id number] Patellar tracking disorder of left knee 11/10/2020 02/22/2021 Chondromalacia of right patella 08/10/2020 02/22/2021 Overview (08/10/2020): Added automatically from request for surgery [id number] Swelling of right knee joint 08/10/2020 02/22/2021 Overview (08/10/2020): Added automatically from request for surgery [id number] Patella, chondromalacia, right 08/09/2020 02/22/2021 Effusion of right knee 08/09/202002/22 Maltracking of right patella 08/09/2020 03/28/2022 Class 3 severe obesity witho ut serious comorbidity in adult 04/27/2020 03/28/2022 Chest pain 12/01/2019 06/04/2021 Psoriasis 09/24/2018 03/28/2022 Chronic abdominal pain 12/04/201703/28 History of CA (myocardial infarction) 12/01/2019 Nausea and vomiting 07/04/19 [...] RETINACULAR LENGTHENING; Surgeon: Isaias Dumont MD; Location: [facility]; Service: Orthopedics ULNAR TUNNEL RELEASE 08/29/2021 Arm/Elbow/Right Right Cubital Tunnel Release; Surgeon: Ozzy Concepcion MD; Location: [facility]; Service: Orthopedics CARPAL TUNNEL RELEASE 09/19/2021 Hand/Wrist/Left Left Cubital Tunnel Release and left carpal tunnel release; Surgeon: Ozzy Concepcion MD; Location: [facility]; Service: Orthopedics THYROIDECTOMY 07/12/2022 Right Right Jason Thyroidectomy; Surgeon: Alessandro Faith MD; Location: [facility]; Service: ENT ULNAR TUNNEL RELEASE 12/12/2022 Arm/Elbow/Left Left cubital tunnel release revision and transposition; Surgeon: Ramses Puentes MD; Location: [facility] MAIN OR; Service: Orthopedics ULNAR TUNNEL RELEASE 12/12/2022 Arm/Elbow Surgeon: Ramses Puentes MD; Location: [facility] MAIN OR; Service: Orthopedics ULNAR TUNNEL RELEASE 01/14/2023 Arm/Elbow/Right Right Cubital Tunnel Release with transposition; Surgeon: Ramses Puentes MD; Location: [facility]; Service: Orthopedics COLONOSCOPY KNEE ARTHROSCOPY 08/04/2023 Knee/Left LEFT KNEE ARTHROSCOPY partial lateral meniscus repair, medial meniscus root repair; Surgeon: Cesar Ellis MD; Location: [facility] MAIN OR; Service: Orthopedics Medical devices from [...] How often do you attend chur or moravian services? Never 08/15/2022 Do you belong to any clubs o r organizations such as zoroastrian groups, unions, fraternal or athletic groups, or [...] Date Recorded PHQ-2 Total Score 2 08/17/2022 [facility] Occupat [facility] - Occupational Stress Questionnaire Answer Date Recorded [...] place to sleep or slept in a group home (including now)? 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 Maintain a healthy diet, exercise regularly and maintain an ideal body weight General No Cheryl Kumar RMA Stay Tobacco Free Lifestyle No Rylie Gee CCMA Medical Devices Implanted Type Area Label Folder Device Identifier Shelf Expiration Date Model / Serial / Lot Loop Recorder-12/02 Implanted:11/17 (Quantity not on file) Left: Chest Button Sut 4mm Endbttn 20mm Lf F/Acl/Pcl Recon - [id number] Implanted:Qty: 1 on 08/04/2023 by Cesar Ellis MD at [facility] Left: Knee [employer]:ENDO 10/03/2027 [id number] / / [id number] Procedures Procedure Name Priority Date/Time Associated Diagnosis [...] EST Impressions 03/31/2023 3:16 PM EST Negative (FRH-Fujjleka-3) ~ RECOMMENDATION: Routine screening mammogram in 1 [...] the next mammogram, in accordance with the [employer] and the Society of Breast Imaging recommendations. Narrative 03/31/2023 3:16 PM EST Procedure:MM MAMMO DIGITAL FAITH SCREEN BILAT ~ Reason for exam: screening, asymptomatic. Z12.31-Encounter for screening mammogram for malignant neoplasm of bcdxwz-FHA-86-CM ~ MM MAMMO DIGITAL FAITH SCREEN BILAT [...] for screening mammogram for malignant neoplasm of uwjpoi-SXI-50-CM ~ MM MAMMO DIGITAL FAITH SCREEN BILAT Bilateral CC and MLO view(s) were taken. Technologist: Nico Delgadillo, RT(R)(M) The breast tissue is heterogeneously dense. This may lower thesensitivity of mammography. Prior study comparison: Compared with prior studies the most recentbeing 02/18/22, 01/08/21 No mammographic evidence of malignancy. ~ IMPRESSION: Negative (EXJ-Ytegncsa-6) ~ RECOMMENDATION: Routine screening mammogram in 1 [...] the next mammogram, in accordance with the [employer] and the Society of [...] cancer Staff Staff Role Latasha Bauer RN Jar Capper Eric Salazar MD Anesthesiologist Fidencio Taylor MD [...] of bowel preparation was evaluated using the [place] Bowel Preparation Scale with scores of: right [...] Recently Relevant to Health Maintenance Insurance [facility] [id number] [facility] [place] [facility] [id number] Care Teams Quill Layer Relationship Specialty Start Date End Date Mandeep Beckham DO [address] [place] [address] PCP - General Family Medicine 01/28/23
--- OUTSIDE RECORDS SUMMARY | 2024-08-01 21:09 | XMS_ITS | Encounter Summary ---
Author Organization [employer] Address [address] [address] Care Team Providers Care Track Service Worker Name Role Phone Gurjit Mena MD Primary Care Provider [phone] Reason for Visit * Reason Onset Date Comments ER VISIT 06/29/2024 Encounter Details Date Type Department Care Team (Late st Contact Info) Description 06/29/2024 Telephone [facility] Orthopedics - [address] [place] [address] Fausto Nieves MD [address] [place] [address] ER VISIT Social History Tobacco Use [...] Never 06/21/2024 How often does anyone, tasia jweell family and friends, insult or talk down [...] speak a language other than Belgian at [facility]? No 06/21/2024 Do you want help [...] EDT Spoke with Alonso Seo PA-C of [facility] ED. Patient presented with body aches, chills, and left knee pain. Bilateral Doppler US performed and were negative. Labs WNL aside from elevated CRP (surgery 06/21/24). No fever in ED today. Images provided of knee via cell phone and uploaded into [email or web address]. Patient treated conservatively with new dressing placement and [place] Sho Rain PA-C * Telephone Encounter - Monserrat Ortiz CMA - 06/29/2024 2:38 PM EDT Images from the original note were not included. Image shared via cell from patient while at [facility] today * Telephone Encounter - Shannan Mosher - 06/29/2024 1:08 PM EDTSummary: ER VISIT Charge nurse from [facility] ER calling to speak with Dr. Nieves. Patient is currently being seen in the ER S/P LTKA on 06/21/24. Is experiencing pain at the joint as well as excess swelling. Possible infection. Charge nurse Misty requesting Dr. Nieves to advise if he is available. Will proceed with [place] regardless of contact. Call back number [phone]. documented in this encounter Plan of Treatment Upcoming Encounters Date Type Department Care Team (Late st Contact Info) Description 08/02/2024 10:15 AM EDT Treatment [facility] OP Physical Therapy [address] [place] [phone] Du You, LIME KILN WORKER 08/06/2024 10:15 AM EDT Treatment [facility] OP Physical Therapy [address] [place] [phone] Du You, LIME KILN WORKER 09/07/2024 10:00 AM EDT Office Visit [facility] Orthopedics - [address] [phone] Fausto Nieves MD [address] [place] [address] documented as of this encounter Visit Diagnoses Not on filedocumented in this encounter Care Teams Track Service Worker Relationship Specialty Start Date End Date Gurjit Mena MD [address] [address] PCP - General Family Medicine 06/17/24 documented as of this encounter
--- OUTSIDE RECORDS SUMMARY | 2024-08-01 21:09 | XMS_ITS | Encounter Summary ---
Author Organization [employer] Address [address] [place] [address] Care Team Providers Care Stone Circular Sawyer Name Role Phone Gurjit Mena MD Primary Care Provider [phone]- [phone] Fausto Nieves MD Unavailable [phone] Reason for Visit * Reason Comments Medication Refill Encounter Details Date Type Department Care Team (Late st Contact Info) Description 07/18/2024 Refill [facility] Orthopedics - [address] [phone] Fausto Nieves MD [address] [place] [address] Social History Tobacco Use Types Packs/Day [...] Do you speak a language other than French at [facility]? No 06/21/2024 Do you want help [...] Info) Description 08/02/2024 10:15 AM EDT Treatment [facility] OP Physical Therapy [address] [place] [phone] Du You, JANITORIAL SUPERVISOR 08/06/2024 10:15 AM EDT Treatment [facility] OP Physical Therapy [address] [place] [phone] Du You, JANITORIAL SUPERVISOR 09/07/2024 10:00 AM EDT Office Visit [facility] Orthopedics - [address] [phone] Fausto Nieves MD [address] [place] [address] documented as of this encounter Visit Diagnoses Not on filedocumented in this encounter Care Teams Stone Circular Sawyer Relationship Specialty Start Date End Date Gurjit Mena MD [address] [place] [phone] PCP - General Family Medicine 06/17/24 Fausto Nieves MD [address] [place] [address] Orthopedic Surgery 06/30/24 documented as of this encounter
--- OUTSIDE RECORDS SUMMARY | 2024-08-01 21:09 | XMS_ITS | Encounter Summary ---
Author Organization [employer] Address [address] [place] [address] Care Team Providers Care Small Wind Energy Installer Name Role Phone Gurjit Mena MD Primary Care Provider [phone] Fausto Nieves MD Unavailable [phone] Reason for Visit * Reason Onset Date Comments Post-Op Follow-up 06/30/2024 Encounter Details Date Type Department Care Team (Late st Contact Info) Description 06/30/2024 Telephone [facility] Surgical Unit [address] [place] [phone] Lorin Paez RN Post-Op Follow-up Social [...] Do you speak a language other than Dutch at [facility]? No 06/21/2024 Do you want help [...] Info) Description 08/02/2024 10:15 AM EDT Treatment [facility] OP Physical Therapy [address] [place] [phone] Du You PTA 08/06/2024 10:15 AM EDT Treatment [facility] OP Physical Therapy [address] [place] [phone] Du You, ALUMINUM BOATS ASSEMBLER 09/07/2024 10:00 AM EDT Office Visit [facility] Orthopedics - [address] [phone] Fausto Nieves MD [address] [place] [address] documented as of this encounter Visit Diagnoses Not on filedocumented in this encounter Care Teams Small Wind Energy Installer Relationship Specialty Start Date End Date Gurjit Mena MD [address] [place] [address] PCP - General Family Medicine 06/17/24 Fausto Nieves MD [address] [place] [address] Orthopedic Surgery 06/30/24 documented as of this encounter
--- OUTSIDE RECORDS SUMMARY | 2024-08-01 21:09 | XMS_ITS | Referral Summary ---
Author Organization [employer] Address [address] [place] [address] Care Team Providers Care Desk Assistant Name Role Phone Gurjit Mena MD Primary Care Provider [phone] Fausto Nieves MD Unavailable [phone] Encounters Date Type Department Care Team Description 07/30/2024 Travel 07/30/2024 10:15 AM EDT Treatment [facility] OP Physical Therapy [address] [place] [phone] Du You, TV PRODUCTION ASSISTANT Status post left knee replacement with ANNA (Primary Dx) 07/28/2024 Travel 07/28/2024 10:15 AM EDT Treatment [facility] OP Physical Therapy [address] [place] [phone] Du You, TV PRODUCTION ASSISTANT Status post left knee replacement with ANNA (Primary Dx) 07/20/2024 Travel 07/20/2024 9:30 AM EDT Treatment [facility] OP Physical Therapy [address] [place] [phone] Murali Bear, PT Status post left knee replacement with ANNA (Primary Dx) [facility] [address] [phone] Fausto Nieves MD 07/15/2024 Travel 07/15/2024 8:48 PM EDT - 07/15/2024 11:00 PM EDT Emergency [facility] Emergency Department [address] [place] [phone] Patti English MD Nausea with vomiting (Primary Dx); Diarrhea; Viral infection; Nausea and vomiting, unspecified vomiting type; Diarrhea, unspecified type Discharge Disposition: Home or Self Care 07/13/2024 Travel 07/13/2024 10:15 AM EDT Treatment [facility] OP Physical Therapy [address] [place], [place] [phone] Murali Bear, PT Status post left knee replacement with ANNA (Primary Dx) 07/06/2024 10:05 AM EDT Ancillary Procedure [address] [phone] Fausto Nieves MD 07/06/2024 Travel 07/06/2024 9:00 AM EDT Treatment [facility] OP Physical Therapy [address] [place], [place] [phone] Fausto Nieves MD Holbrook, Jayse, TV PRODUCTION ASSISTANT Status post left knee replacement with ANNA 07/06/2024 10:00 AM EDT Office Visit [facility] [phone] Fausto Nieves MD S/P total knee arthroplasty, left (Primary Dx) 07/02/2024 10:30 AM EDT Office Visit [address] [phone] Ermias Obando PA-C S/P total knee arthroplasty, left DOS 06/21/2024 06/30/2024 Telephone [facility] Medical Surgical Unit [address] [place] [phone] Lorin Paez RN Post-Op Follow-up 06/29/2024 Telephone [facility] Orthopedics - [address] [place] [address] Fausto Nieves MD ER VISIT 06/28/2024 Travel 06/28/2024 5:23 PM EDT - 06/28/2024 8:04 PM EDT Emergency [facility] Emergency Department [address] [place] [phone] Essence Michaud MD Acute pain of left knee (Primary Dx) Discharge Disposition: Home or Self Care 06/23/2024 Travel 06/23/2024 8:45 AM EDT Evaluation [facility] OP Physical Therapy [address] [phone] Murali Bear, PT Status post left knee replacement with ANNA (Primary Dx) 06/21/2024 6:06 AM EDT - 06/22/2024 1:30 PM EDT Hospital Encounter [facility] Medical Surgical Unit [address] [place] [phone] Fausto Nieves MD Status post left knee replacement with ANNA (Primary Dx); Traumatic arthritis of left knee Discharge Disposition: Home or Self Care 06/21/2024 7:29 AM EDT Anesthesia Event [facility] Operating Room [address] [place] [phone] Moe Francois CRNA Donahue, Rachel, CRNA 06/21/2024 Travel 06/21/2024 7:30 AM EDT - 06/21/2024 9:44 AM EDT Surgery [facility] Operating Room [address] [place] [phone] Fausto Nieves MD ARTHROPLASTY, KNEE, ROBOT-ASSISTED 06/17/2024 Surgery Prep [facility] Orthopedics - [address] [place] [address] Sho Rain PA-C Traumatic arthritis of left knee (Primary Dx) 06/14/2024 Travel 06/14/2024 5:12 PM EDT - 06/14/2024 11:59 PM EDT Hospital Encounter [facility] CT Imaging [address] [place], [place] [phone] Fausto Nieves MD History of arthroscopic knee surgery, Left; Traumatic arthritis of knee, left Discharge Disposition: Home or Self Care 06/08/2024 Travel 06/08/2024 11:00 AM EDT Hospital Encounter [facility] Respiratory Care [address] [place] [phone] Fausto Nieves MD Pre-op testing Discharge Disposition: Home or Self Care 06/08/2024 11:01 AM EDT - 06/08/2024 11:59 PM EDT Hospital Encounter [facility] Diagnostic Imaging [address] [place], [place] [phone] Fausto Nieves MD Pre-op testing Discharge Disposition: Home or Self Care 06/08/2024 11:45 AM EDT Lab Patient Walk-In [facility] Lab [address] [place], [place] [phone] Fausto Nieves MD Pre-op testing 06/08/2024 10:00 AM EDT Office Visit [address] [phone] Fausto Nieves MD History of arthroscopic knee surgery, Left (Primary Dx); Traumatic arthritis of knee, left; Pre-op testing; Traumatic arthritis of left knee 06/04/2024 9:35 AM EDT Ancillary Procedure [address] [phone] Ermias Obando PA-C 06/04/2024 9:30 AM EDT Office Visit [address] [phone] Ermias Obando PA-C History of arthroscopic knee [...] for 10 days. 60 tablet 5 025 ondansetron (ZOFRAN-ODT) 4 MG [...] the past 12 months, has t he [employer], oil, or water [employer] threatened to shut off services in your [...] speak a language other than Croatian at [facility]? No 06/21/2024 Do [...] Info) Description 08/02/2024 10:15 AM EDT Treatment [facility] OP Physical Therapy [address] [place] [phone] Du You PTA 08/06/2024 10:15 AM EDT Treatment [facility] OP Physical Therapy [address] [place] [phone] Du You, TV PRODUCTION ASSISTANT 09/07/2024 10:00 AM EDT Office Visit [facility] Orthopedics - [address] [phone] Fausto Nieves MD [address] [place] [address] [phone] Medical Devices Implanted Type Area Business Mgr Device Identifier Shelf Expiration Date Model / Serial / Lot Comp Triathlon Tib Trita Sz3 5536-B-300 - [id number] Implanted:Qt y: 1 on 06/21/2024 by Fausto Nieves MD at [facility] [employer] Left: Knee LEANDER:[employer] [id number] 10/06/2028 5536-B-30 0 / / [id number] Patella Press Fit Tritanium 5552-L-299 - [id number] Implanted:Qt y: 1 on 06/21/2024 by Fausto Nieves MD at [facility] [employer] Left: Knee [employer]ER:[employer] [id number] 02/17/2029 5552-L-29 9 / / [id number] Comp Fem P/A Cr Beaded Sz3 L 5517-F-301 - [id number] Implanted:Qt y: 1 on 06/21/2024 by Fausto Nieves MD at [facility] [employer] Left: Knee [employer]ANDER:[employer] [id number] 02/07/2029 5517-F-30 1 / / [id number] 3000 Insrt Tib Bearing #3 10mm 9777-E-471-E - [id number] Implanted:Qt y: 1 on 06/21/2024 by Fausto Nieves MD at [facility] [employer] Left: Knee [employer] [id number] 11/22/2028 5531-G-31 0-E / / [id number] Loop Recorder Explanted Type Area Business Mgr Device Identifier Shelf Expiration Date Model / Serial / Lot Pin Bone [id number] Strl [id number] - [id number] Explanted:Qty: 1 on 06/21/2024 at [facility] IMPLANTS Left: Knee [employer] 02/25/2029 [id number] / / [id number] Pin Bone [id number] Strl [id number] - [id number] Explanted:Qty: 1 on 06/21/2024 at [facility] IMPLANTS Left: Knee [employer] 03/10/2029 [id number] / / [id number] Procedures Procedure Name Priority Date/Time Associated Diagnosis [...] ANESTHESIA INTUBATION Routine 06/21/2024 7:37 AM EDT AR ARTHRP KNE CONDYLE&PLATU MEDIAL&LAT COMPARTMENTS 06/21/2024 7:29 [...] Color, UA Straw 07/15/2024 10:39 PM EDT [facility] Clarity, UA Clear 07/15/2024 10:39 PM EDT [facility] Specific Ramer, UA 1.020 1.002 - 1.030 07/15/2024 10:39 PM EDT [facility] pH, UA 6.0 5.0 - 9.0 07/15/2024 10:39 PM EDT [facility] Leukocytes, UA Negative Negative 07/15/2024 10:39 PM EDT [facility] Nitrite, UA Negative Negative 07/15/2024 10:39 PM EDT [facility] Protein, UA Negative Negative 07/15/2024 10:39 PM EDT [facility] Glucose, UA Negative Negative 07/15/2024 10:39 PM EDT [facility] Ketones, UA Negative Negative 07/15/2024 10:39 PM EDT [facility] Bilirubin, UA Negative Negative 07/15/2024 10:39 PM EDT [facility] Blood, UA Negative Negative 07/15/2024 10:39 PM EDT [facility] Urobilinogen, UA 0.2 mg/dL Normal 07/15/2024 10:39 PM EDT [facility] Specimen Source Urine, Clean Catch 07/15/2024 10:39 PM EDT [facility] Urine URINE SPECIMEN COLLECTION, CLEAN CATCH / Unknown 07/15/2024 10:18 PM EDT 07/15/2024 10:25 PM EDT us Patti English MD URINE ORDERABLES Final Result [facility] [address] [place] [address], [facility] [phone] * (ABNORMAL) CBC with Auto Diff (07/15/2024 9:21 PM EDT) Only the most recent of3 resultswithin the time period is included. WBC 8.1 4.8 - 10.8 K/ L 07/15/2024 9:33 PM EDT [facility] RBC 4.14 3.50 - 5.20 M/ L 07/15/2024 9:33 PM EDT [facility] Hemoglobin 12.8 11.7 - 15.8 GM/DL 07/15/2024 9:33 PM EDT [facility] Hematocrit 38.1 35.0 - 47.0 % 07/15/2024 9:33 PM EDT [facility] MCV 92 81 - 101 fL 07/15/2024 9:33 PM EDT [facility] MCH 30.9 27.0 - 34.0 pg 07/15/2024 9:33 PM EDT [facility] MCHC 33.6 32.0 - 36.0 GM/DL 07/15/2024 9:33 PM EDT [facility] RDW 12.5 11.5 - 14.5 % 07/15/2024 9:33 PM EDT [facility] Platelets 323 150 - 400 K/CU MM 07/15/2024 9:33 PM EDT [facility] MPV 10.6 9.4 - 12.4 fL 07/15/2024 9:33 PM EDT [facility] Nucleated Red Blood Cell 0.0 0 - 0.2 % 07/15/2024 9:33 PM EDT [facility] % Neutros 54 37 - 80 % 07/15/2024 9:33 PM EDT [facility] % Lymphs 33 10 - 50 % 07/15/2024 9:33 PM EDT [facility] % Monos 7 5 - 13 % 07/15/2024 9:33 PM EDT [facility] % Eos 5 0 - 7 % 07/15/2024 9:33 PM EDT [facility] % Baso 1 0 - 3 % 07/15/2024 9:33 PM EDT [facility] NRBC Absolute <0.01 0 - 0.012 K/ul 07/15/2024 9:33 PM EDT [facility] # Neutros 4.39 2.00 - 6.90 K/ L 07/15/2024 9:33 PM EDT [facility] # Lymphs 2.70 0.60 - 3.40 K/ L 07/15/2024 9:33 PM EDT [facility] # Monos 0.53 0.00 - 0.90 K/ L 07/15/2024 9:33 PM EDT [facility] # Eos 0.42 0.00 - 0.70 K/ L 07/15/2024 9:33 PM EDT [facility] # Baso 0.04 0.00 - 0.20 K/ L 07/15/2024 9:33 PM EDT [facility] Immature Granulocytes-Re lative 0.40 % 07/15/2024 9:33 PM EDT [facility] # IG 0.03(H) 0.00 - 0.00 K/uL 07/15/2024 9:33 PM EDT [facility] Blood Venipuncture / Unknown 07/15/2024 9:21 PM EDT 07/15/2024 9:31 PM EDT Narrative [facility] - 07/15/2024 9:33 PM EDT [...] ORDERABLES Final Resu lt Performing Organization Address City/[facility]/ZIP Co de Phone Number [facility] [address] [place] [address] * Lipase (07/15/2024 9:21 PM EDT) Lipase 18 16 - 77 U/L 07/15/2024 9:55 PM EDT [facility] Blood Venipuncture / Unknown 07/15/2024 9:21 PM EDT 07/15/2024 9:31 PM EDT Patti English MD LAB BLOOD ORDERABLES Final Resu lt Performing Organization Address [facility] Co de Phone Number [facility] [address] [place] [address] * (ABNORMAL) Hepatic function panel (07/15/2024 9:21 PM EDT) [facility] Protein, Total 7.4 6.4 - 8.2 gm/dL 07/15/2024 9:55 PM EDT [facility] Albumin 3.5 3.4 - 5.0 g/dL 07/15/2024 9:55 PM EDT [facility] Total Bilirubin 0.3 0.2 - 1.0 mg/dL 07/15/2024 9:55 PM EDT [facility] Bilirubin, Direct 0.1 0.1 - 0.2 mg/dL 07/15/2024 9:55 PM EDT [facility] Alkaline Phosphatase 128(H) 46 - 116 U/L 07/15/2024 9:55 PM EDT [facility] Globulin 3.9 g/dL 07/15/2024 9:55 PM EDT [facility] A/G Ratio 0.9 07/15/2024 9:55 PM EDT [facility] AST 20 15 - 37 U/L 07/15/2024 9:55 PM EDT [facility] Comment:[employer] has become aware of sulfasalazine and sulfapyridine [...] - 78 U/L 07/15/2024 9:55 PM EDT [facility] Comment:magnetU has become aware of sulfasalazine and sulfapyridine [...] MD LAB BLOOD ORDERABLES Final Resu lt [facility] [address] [place] [address], [facility] [phone] * (ABNORMAL) Basic Metabolic Panel (07/15/2024 9:21 PM EDT) Sodium 135(L) 136 - 145 meq/L 07/15/2024 9:55 PM EDT [facility] Potassium 3.7 3.5 - 5.1 meq/L 07/15/2024 9:55 PM EDT [facility] Chloride 103 98 - 107 meq/L 07/15/2024 9:55 PM EDT [facility] CO2 26 21 - 32 meq/L 07/15/2024 9:55 PM EDT [facility] Anion Gap 10(L) 11 - 22 07/15/2024 9:55 PM EDT [facility] BUN 8 7 - 18 mg/dL 07/15/2024 9:55 PM EDT [facility] Creatinine 1.01 0.55 - 1.10 mg/dL 07/15/2024 9:55 PM EDT [facility] BUN/Creatinine 8 07/15/2024 9:55 PM EDT [facility] Glucose 113(H) 70 - 99 mg/dL 07/15/2024 9:55 PM EDT [facility] Calcium 8.9 8.5 - 10.1 mg/dL 07/15/2024 9:55 PM EDT [facility] Osmolality Calc 269.2 mOsm/kg 9:55 PM EDT [facility] eGFR (mL/min/1.73m2) >60 >=60 mL/min/1.7 3m2 07/15/2024 9:55 PM EDT [facility] Comment:eGFR of <60 suggests chronic kidney disease if found over a 3 month period of time. eGFR <15 indicates renal failure. Blood Venipuncture / Unknown 07/15/2024 9:21 PM EDT 07/15/2024 9:31 PM EDT us Patti English MD LAB BLOOD ORDERABLES Final Resu lt [facility] [address] [place] [address] * XR knee 1 or 2 views [...] - 2.0 mmol/L 06/28/2024 6:03 PM EDT [facility] Comment:If a Lactic Acid Lev el with Reflex if Indicated result is greater than 2.0, a Lactic Acid Level will be ordered to be collected 2 hours after the original collection time. Blood Venipuncture / Unknown 06/28/2024 5:32 PM EDT 06/28/2024 5:37 PM EDT Melvin Yee PROFESSOR SCULPTURE LAB BLOOD ORDERABLES Final Result Performing Organization Address City/[facility]/ZIP Co de Phone Number [facility] [address] [place] [address] * (ABNORMAL) C-Reactive Protein (06/28/2024 5:32 PM EDT) CRP 4.44(H) 0.05 - 0.25 mg/dL 06/28/2024 6:08 PM EDT [facility] Blood Venipuncture / Unknown 06/28/2024 5:32 PM EDT 06/28/2024 5:37 PM EDT Melvin Yee PROFESSOR SCULPTURE LAB BLOOD ORDERABLES Final Result Performing Organization Address [facility] Co de Phone Number [facility] [address] [place] [address] * (ABNORMAL) Comprehensive metabolic panel (06/28/2024 5:32 PM EDT) Only the most recent of2 resultswithin the time period is included. Sodium 139 136 - 145 meq/L 06/28/2024 6:08 PM EDT [facility] Potassium 4.6 3.5 - 5.1 meq/L 06/28/2024 6:08 PM EDT [facility] Chloride 106 98 - 107 meq/L 06/28/2024 6:08 PM EDT [facility] CO2 25 21 - 32 meq/L 06/28/2024 6:08 PM EDT [facility] Calcium 9.0 8.5 - 10.1 mg/dL 06/28/2024 6:08 PM EDT [facility] Glucose 90 70 - 99 mg/dL 06/28/2024 6:08 PM EDT [facility] BUN 14 7 - 18 mg/dL 06/28/2024 6:08 PM EDT [facility] Creatinine 0.87 0.55 - 1.10 mg/dL 06/28/2024 6:08 PM EDT [facility] BUN/Creatinine 16 06/28/2024 6:08 PM EDT [facility] Albumin 3.1(L) 3.4 - 5.0 g/dL 06/28/2024 6:08 PM EDT [facility] Alkaline Phosphatase 102 46 - 116 U/L 06/28/2024 6:08 PM EDT [facility] ALT 32 12 - 78 U/L 06/28/2024 6:08 PM EDT [facility] AST 42(H) 15 - 37 U/L 06/28/2024 6:08 PM EDT [facility] Total Bilirubin 0.7 0.2 - 1.0 mg/dL 06/28/2024 6:08 PM EDT [facility] Protein, Total 7.3 6.4 - 8.2 gm/dL 06/28/2024 6:08 PM EDT [facility] Anion Gap 13 11 - 22 06/28/2024 6:08 PM EDT [facility] A/G Ratio 0.7 06/28/2024 6:08 PM EDT [facility] Globulin 4.2 g/dL 06/28/2024 6:08 PM EDT [facility] Osmolality Calc 277.5 mOsm/kg 6:08 PM EDT [facility] eGFR (mL/min/1.73m2) >60 >=60 mL/min/1.7 3m2 06/28/2024 6:08 PM EDT [facility] Comment:ESTIMATED GFR IS NOT ACCURATE CREATININE CLEARANCE IN PREDICTING GLOMERULAR FILTRATION RATE. ESTIMATED GFR IS NOT APPLICABLE FOR DIALYSIS PATIENTS. Blood Venipuncture / Unknown 06/28/2024 5:32 PM EDT 06/28/2024 5:37 PM EDT us Melvin Yee PROFESSOR SCULPTURE LAB BLOOD ORDERABLES Final Result [facility] [address] [place] [address] * (ABNORMAL) Hemoglobin and Hematocrit (06/22/2024 3:45 AM EDT) Hemoglobin 11.6(L) 11.7 - 15.8 GM/DL 06/22/2024 4:09 AM EDT [facility] Hematocrit 34.7(L) 35.0 - 47.0 % 06/22/2024 4:09 AM EDT [facility] Blood Venipuncture / Unknown 06/22/2024 3:45 AM EDT 06/22/2024 3:57 AM EDT us Fausto Denise Nieves MD LAB BLOOD ORDERABLES Final Res ult [facility] [address] [place] [address] * AN SINGLE LUMEN INTUBATION (06/21/2024 7:40 [...] a few minutes. Tidal volumes <200 with 42ieV8F peak pressure, SpO2 started to taper down, reached 93%. Rocuronium IV then intubated successfully, see additional intubation note us Moe Francois CRNA ANESTHESIA ORDERABLES Final Result * Tissue Exam (06/21/2024 7:13 AM EDT) AP RESULT See Note: [facility] Comment: [facility] [address] [place] [phone] or [phone] Noe Fuentes M.D., Hair Spinning Machine Operator PATIENT NAME LABORATORY NO. [address] [id number] AGE SEX SSN CLIENT REF # [place] [id number] 1975 F [id number] MARCIA REQUESTING Emigdio ATTENDING MAgapito COPY TO. [address] [place] [place] [id number] DATE COLLECTED DATE RECEIVED DATE REPORTED 06/21/2024 06/21/2024 06/22/2024 DIAGNOSIS: A. BONE FRAGMENTS, GROSS ONLY, LEFT KNEE: GROSS DIAGNOSIS: Changes consistent with osteoarthritis B. HARDWARE, LEFT KNEE: GROSS DIAGNOSIS: Consistent with explanted hardware BG/sm CLINICAL HISTORY: Traumatic arthropathy, left knee SPECIMENS RECEIVED: A. BONE FRAGMENTS, GROSS ONLY, LEFT KNEE B. HARDWARE, LEFT KNEE Professional interpretation rendered by Paramjit Roldan M.D., [place] at [employer] [facility], [address] [place] [address]. GROSS DESCRIPTION: A. Received in formalin labeled [...] AND ELECTRONICALLY SIGNED BY: Paramjit Roldan M.D., Jocelyne.Ramona.A.P. CPT CODES: [id number] Bone STRUCTURE OF LEFT KNEE REGION / Unknown 06/21/2024 7:13 AM EDT Biomedical device (physical object) STRUCTURE OF LEFT KNEE REGION / Unknown 06/21/2024 9:07 AM EDT Fausto Nieves MD PATHOLOGY/CYTOLOGY ORDERABLES Final Result [facility] [address] [place] [address] * HC PERIPHERAL NERVE BLOCK SINGLE SHOT [...] supine Prep: ChloraPrep Patient monitoring: heart rate, campus monitor and continuous pulse ox Block type: [...] See attached images uploaded to MEDIA via [employer] ( due to [facility] not having an interface between the [employer] and Radiology). us Moe Francois COMPUTER ENGINEERING TECHNOLOGIST ANESTHESIA ORDERABLES Final Result * CT lower [...] ATRIAL RATE (MCT) 46 BPM GE MUSE AR Interval 206 ms GE MUSE QRS-INTERVAL (MSEC) 96 ms GE MUSE QT Interval 496 ms GE MUSE QTC Interval 434 ms GE MUSE P [place] 54 degrees GE MUSE R AXIS (MCT) 20 degrees GE MUSE T Wave [place] 21 degrees GE MUSE [place] Diagnosis Sinus bradycardia Otherwise normal ECG No previous ECGs available Confirmed by Emigdio CRUZ RICHARD ([id number]) on 06/08/2024 11:45:34 AM GE MUSE 06/08/2024 11:2 7 AM EDT 06/08/2024 11:45 AM EDT us Fausto Nieves MD ECG ORDERABLES Final Result Performing Organization Address City/[facility]/ZIP Co de Phone Number GE MUSE * MRSA Screen (06/08/2024 11:13 AM EDT) Pathologist [facility] MRSA by PCR [facility] MRSA Not Detected by PCR MRSA Not Detected by PCR DEVICE ID9 06/08/2024 5:03 PM EDT [facility] Nasal BOTH ANTERIOR NARES / Unknown 06/08/2024 11:13 AM EDT 06/08/2024 11:40 AM EDT us Fausto Nieves MD MICROBIOLOGY - GENERAL ORDERAB LES Final Result Performing Organization Address [facility] Co de Phone Number [facility] [address] [phone] * X-ray chest PA and lateral (06/08/2024 [...] Final Result from Last 3 Months Insurance [id number] (Home) [address] [place] [address] [facility] MEDICAID Advance Directives For more information, please contact: [phone] * Full Code (Latest Code Status on File) Date Activated Date Inactivated Comments 06/21/2024 9:24 AM 06/22/2024 2:30 PM * Full Code Date Activated Date Inactivated Comments 06/21/2024 5:31 AM 06/21/2024 9:24 AM Care Teams Desk Assistant Relationship Specialty Start Date End Date Gurjit Mena MD [address] [place] [address] [place] [address] PCP - General Family Medicine 06/17/24 Fausto Nieves MD [address] [place] [address] Orthopedic Surgery 06/30/24
--- OUTSIDE RECORDS SUMMARY | 2024-08-01 21:09 | XMS_ITS | Clinical Summary ---
Author Organization [employer] Address [address] [place] [address] Care Team Providers Care Diesel Truck Driver Name Role Phone Gurjit Mena MD Primary Care Provider [phone] Fausto Nieves MD Unavailable [phone] Allergies Active Allergy Reactions Criticality Noted [...] Date Type Department Care Team Description 07/30/2024 10:15 AM EDT Treatment [facility] OP Physical Therapy [address] [place] [phone] Du You, LEARNING PROGRAM MANAGER Status post left knee replacement with ANNA (Primary Dx) 07/30/2024 Travel 07/28/2024 10:15 AM EDT Treatment [facility] OP Physical Therapy [address] [place] [phone] Du You, LEARNING PROGRAM MANAGER Status post left knee replacement with ANNA (Primary Dx) 07/28/2024 Travel 07/20/2024 9:30 AM EDT Treatment [facility] OP Physical Therapy [address] [place] [phone] Murali Bear, PT Status post left knee replacement with ANNA (Primary Dx) 07/20/2024 Travel 07/18/2024 [facility] Orthopedics - [address] [phone] Fausto Nieves MD 07/15/2024 8:48 PM EDT - 07/15/2024 11:00 PM EDT Emergency [facility] Emergency Department [address] [place] [address] Patti English MD Nausea with vomiting (Primary Dx); Diarrhea; Viral infection; Nausea and vomiting, unspecified vomiting type; Diarrhea, unspecified type Discharge Disposition: Home or Self Care 07/15/2024 Travel 07/13/2024 10:15 AM EDT Treatment [facility] OP Physical Therapy [address] [place], [place] [phone] Murali Bear, PT Status post left knee replacement with ANNA (Primary Dx) 07/13/2024 Travel 07/06/2024 10:05 AM EDT Ancillary Procedure [place] [phone] Fausto Nieves MD 07/06/2024 10:00 AM EDT Office Visit [address] [phone] Fausto Nieves MD S/P total knee arthroplasty, left (Primary Dx) 07/06/2024 9:00 AM EDT Treatment [facility] OP Physical Therapy [address] [place], [place] [phone] Fausto Nieves MD Holbrook, Jayse, LEARNING PROGRAM MANAGER Status post left knee replacement with ANNA 07/06/2024 Travel 07/02/2024 10:30 AM EDT Office Visit [address] [phone] Ermias Obando PA-C S/P total knee arthroplasty, left DOS 06/21/2024 06/30/2024 Telephone [facility] Medical Surgical Unit [address] [place] [phone] Lorin Paez RN Post-Op Follow-up 06/29/2024 Telephone [facility] Orthopedics - [address] [place] [phone] Fausto Nieves MD ER VISIT 06/28/2024 5:23 PM EDT - 06/28/2024 8:04 PM EDT Emergency [facility] Emergency Department [address] [place] [phone] Essence Michaud MD Acute pain of left knee (Primary Dx) Discharge Disposition: Home or Self Care 06/28/2024 Travel 06/23/2024 8:45 AM EDT Evaluation [facility] OP Physical Therapy [address] [place] [phone] Murali Bear, PT Status post left knee replacement with ANNA (Primary Dx) 06/23/2024 Travel 06/21/2024 7:30 AM EDT - 06/21/2024 9:44 AM EDT Surgery [facility] Operating Room [address] [place] [address] Fausto Nieves MD ARTHROPLASTY, KNEE, ROBOT-ASSISTED 06/21/2024 7:29 AM EDT Anesthesia Event [facility] Operating Room [address] [place], [place] [phone] Moe Francois, Beatriz Mabry, PARDEEP 06/21/2024 6:06 AM EDT - 06/22/2024 1:30 PM EDT Hospital Encounter [facility] Medical Surgical Unit [address] [place], [place] [phone] Fausto Nieves MD Status post left knee replacement with ANNA (Primary Dx); Traumatic arthritis of left knee Discharge Disposition: Home or Self Care 06/21/2024 Travel 06/17/2024 Surgery Prep [facility] Orthopedics - [address] [place] [address] Sho Rain PA-C Traumatic arthritis of left knee (Primary Dx) 06/14/2024 5:12 PM EDT - 06/14/2024 11:59 PM EDT Hospital Encounter [facility] CT Imaging [address] [place] [phone] Fausto Nieves MD History of arthroscopic knee surgery, Left; Traumatic arthritis of knee, left Discharge Disposition: Home or Self Care 06/14/2024 Travel 06/08/2024 11:45 AM EDT Lab Patient Walk-In [facility] Lab [address] [place] [phone] Fausto Nieves MD Pre-op testing 06/08/2024 11:01 AM EDT - 06/08/2024 11:59 PM EDT Hospital Encounter [facility] Diagnostic Imaging [address] [place] [address] Fausto Nieves MD Pre-op testing Discharge Disposition: Home or Self Care 06/08/2024 11:00 AM EDT Hospital Encounter [facility] Respiratory Care [address] [place] [address] Fausto Nieves MD Pre-op testing Discharge Disposition: Home or Self Care 06/08/2024 10:00 AM EDT Office Visit [address] [phone] Fausto Nieves MD History of arthroscopic knee surgery, Left (Primary Dx); Traumatic arthritis of knee, left; Pre-op testing; Traumatic arthritis of left knee 06/08/2024 Travel 06/04/2024 9:35 AM EDT Ancillary Procedure [address] [phone] Ermias Obando PA-C 06/04/2024 9:30 AM EDT Office Visit [address] [phone] Ermias Obando PA-C History of arthroscopic knee [...] Do you speak a language other than Beninese at ho me? No 06/21/2024 Do you [...] Treatment [facility] OP Physical Therapy [address] [place] [phone] Du You, LEARNING PROGRAM MANAGER 08/06/2024 10:15 AM EDT Treatment [facility] OP Physical Therapy [address] [place] [phone] Du You, LEARNING PROGRAM MANAGER 09/07/2024 10:00 AM EDT Office Visit [facility] Orthopedics - [address] [phone] Fausto Nieves MD [address] [place] [address] Health Maintenance Due Date Last [...] Screening 06/20/2032 Medical Devices Implanted Type Area Sommelier Device Identifier Shelf Expiration Date Model / Serial / Lot Comp Triathlon Alfa Michaud Sz3 5536-B-300 - [id number] Implanted:Qt y: 1 on 06/21/2024 by Fausto Nieves MD at [facility] TOTAL JOINT CONSTRUCT Left: Knee LEANDER:[employer] [id number] 10/06/2028 5536-B-30 0 / / [id number] Patella Press Fit Tritanium 5552-L-299 - [id number] Implanted:Qt y: 1 on 06/21/2024 by Fausto Nieves MD at [facility] TOTAL JOINT [employer]STRU[employer] Left: Knee LEANDER:[employer] [id number] 02/17/2029 5552-L-29 9 / / [id number] Comp Fem P/A Cr Beaded Sz3 L 5517-F-301 - [id number] Implanted:Qt y: 1 on 06/21/2024 by Fausto Nieves MD at [facility] TOTAL JOINT [employer]STRU[employer] Left: Knee LEANDER:[employer] [id number] 02/07/2029 5517-F-30 1 / / [id number] 3000 Insrt Tib Bearing #3 10mm 4845-T-227-E - [id number] Implanted:Qt y: 1 on 06/21/2024 by Fausto Nieves MD at [facility] TOTAL JO[employer]STRU[employer] Left: Knee LEANDER:[employer] [id number] 11/22/2028 5531-G-31 0-E / / [id number] Loop Recorder Explanted Type Area Sommelier Device Identifier Shelf Expiration Date Model / Serial / Lot Pin Bone [id number] Strl [id number] - [id number] Explanted:Qty: 1 on 06/21/2024 at [facility] IMPLANTS Left: Knee LEANDER:[employer] 02/25/2029 [id number] / / [id number] Pin Bone [id number] Strl [id number] - [id number] Explanted:Qty: 1 on 06/21/2024 at [facility] IMPLANTS Left: Knee LEANDER:[employer] 03/10/2029 [id number] / / [id number] Procedures Procedure Name Priority Date/Time Associated Diagnosis [...] ANESTHESIA INTUBATION Routine 06/21/2024 7:37 AM EDT NM ARTHRP KNE CONDYLE&PLATU MEDIAL&LAT COMPARTMENTS 06/21/2024 7:29 [...] Color, UA Straw 07/15/2024 10:39 PM EDT [facility] Clarity, UA Clear 07/15/2024 10:39 PM EDT [facility] Specific [place], UA 1.020 1.002 - 1.030 07/15/2024 10:39 PM EDT [facility] pH, UA 6.0 5.0 - 9.0 07/15/2024 10:39 PM EDT [facility] Leukocytes, UA Negative Negative 07/15/2024 10:39 PM EDT [facility] Nitrite, UA Negative Negative 07/15/2024 10:39 PM EDT [facility] Protein, UA Negative Negative 07/15/2024 10:39 PM EDT [facility] Glucose, UA Negative Negative 07/15/2024 10:39 PM EDT [facility] Ketones, UA Negative Negative 07/15/2024 10:39 PM EDT [facility] Bilirubin, UA Negative Negative 07/15/2024 10:39 PM EDT [facility] Blood, UA Negative Negative 07/15/2024 10:39 PM EDT [facility] Urobilinogen, UA 0.2 mg/dL Normal 07/15/2024 10:39 PM EDT [facility] Specimen Source Urine, Clean Catch 07/15/2024 10:39 PM EDT [facility] Urine URINE SPECIMEN COLLECTION, CLEAN CATCH / Unknown 07/15/2024 10:18 PM EDT 07/15/2024 10:25 PM EDT us Patti English MD URINE ORDERABLES Final Result [facility] [address] [place] [address] * (ABNORMAL) CBC with Auto Diff (07/15/2024 9:21 PM EDT) Only the most recent of3 resultswithin the time period is included. WBC 8.1 4.8 - 10.8 K/ L 07/15/2024 9:33 PM EDT [facility] RBC 4.14 3.50 - 5.20 M/ L 07/15/2024 9:33 PM EDT [facility] Hemoglobin 12.8 11.7 - 15.8 GM/DL 07/15/2024 9:33 PM EDT [facility] Hematocrit 38.1 35.0 - 47.0 % 07/15/2024 9:33 PM EDT [facility] MCV 92 81 - 101 fL 07/15/2024 9:33 PM EDT [facility] MCH 30.9 27.0 - 34.0 pg 07/15/2024 9:33 PM EDT [facility] MCHC 33.6 32.0 - 36.0 GM/DL 07/15/2024 9:33 PM EDT [facility] RDW 12.5 11.5 - 14.5 % 07/15/2024 9:33 PM EDT [facility] Platelets 323 150 - 400 K/CU MM 07/15/2024 9:33 PM EDT [facility] MPV 10.6 9.4 - 12.4 fL 07/15/2024 9:33 PM EDT [facility] Nucleated Red Blood Cell 0.0 0 - 0.2 % 07/15/2024 9:33 PM EDT [facility] % Neutros 54 37 - 80 % 07/15/2024 9:33 PM EDT [facility] % Lymphs 33 10 - 50 % 07/15/2024 9:33 PM EDT [facility] % Monos 7 5 - 13 % 07/15/2024 9:33 PM EDT [facility] % Eos 5 0 - 7 % 07/15/2024 9:33 PM EDT [facility] % Baso 1 0 - 3 % 07/15/2024 9:33 PM EDT [facility] NRBC Absolute <0.01 0 - 0.012 K/ul 07/15/2024 9:33 PM EDT [facility] # Neutros 4.39 2.00 - 6.90 K/ L 07/15/2024 9:33 PM EDT [facility] # Lymphs 2.70 0.60 - 3.40 K/ L 07/15/2024 9:33 PM EDT [facility] # Monos 0.53 0.00 - 0.90 K/ L 07/15/2024 9:33 PM EDT [facility] # Eos 0.42 0.00 - 0.70 K/ L 07/15/2024 9:33 PM EDT [facility] # Baso 0.04 0.00 - 0.20 K/ L 07/15/2024 9:33 PM EDT [facility] Immature Granulocytes-Re lative 0.40 % 07/15/2024 9:33 PM EDT [facility] # IG 0.03(H) 0.00 - 0.00 K/uL 07/15/2024 9:33 PM EDT [facility] Blood Venipuncture / Unknown 07/15/2024 9:21 PM EDT 07/15/2024 9:31 PM EDT Narrative [facility] - 07/15/2024 9:33 PM EDT [...] ORDERABLES Final Resu lt Performing Organization Address [facility]/ZIP Co de Phone Number [facility] [address] [place] [address] * Lipase (07/15/2024 9:21 PM EDT) Lipase 18 16 - 77 U/L 07/15/2024 9:55 PM EDT [facility] Blood Venipuncture / Unknown 07/15/2024 9:21 PM EDT 07/15/2024 9:31 PM EDT Patti English MD LAB BLOOD ORDERABLES Final Resu lt [facility] [address] [place] [address] * (ABNORMAL) Hepatic function panel (07/15/2024 9:21 PM EDT) Protein, Total 7.4 6.4 - 8.2 gm/dL 07/15/2024 9:55 PM EDT [facility] Albumin 3.5 3.4 - 5.0 g/dL 07/15/2024 9:55 PM EDT [facility] Total Bilirubin 0.3 0.2 - 1.0 mg/dL 07/15/2024 9:55 PM EDT [facility] Bilirubin, Direct 0.1 0.1 - 0.2 mg/dL 07/15/2024 9:55 PM [facility] Alkaline Phosphatase 128(H) 46 - 116 U/L 07/15/2024 9:55 PM EDT [facility] Globulin 3.9 g/dL 07/15/2024 9:55 PM EDT [facility] A/G Ratio 0.9 07/15/2024 9:55 PM EDT [facility] AST 20 15 - 37 U/L 07/15/2024 9:55 PM EDT [facility] Comment:[employer] has become aware of sulfasalazine and sulfapyridine [...] - 78 U/L 07/15/2024 9:55 PM EDT [facility] Comment:[employer] has become aware of sulfasalazine and sulfapyridine [...] MD LAB BLOOD ORDERABLES Final Resu lt [facility] [address] [place] [address] * (ABNORMAL) Basic Metabolic Panel (07/15/2024 9:21 PM EDT) Sodium 135(L) 136 - 145 meq/L 07/15/2024 9:55 PM EDT [facility] Potassium 3.7 3.5 - 5.1 meq/L 07/15/2024 9:55 PM EDT [facility] Chloride 103 98 - 107 meq/L 07/15/2024 9:55 PM EDT [facility] CO2 26 21 - 32 meq/L 07/15/2024 9:55 PM EDT [facility] Anion Gap 10(L) 11 - 22 07/15/2024 9:55 PM EDT [facility] BUN 8 7 - 18 mg/dL 07/15/2024 9:55 PM EDT [facility] Creatinine 1.01 0.55 - 1.10 mg/dL 07/15/2024 9:55 PM EDT [facility] BUN/Creatinine 8 07/15/2024 9:55 PM EDT [facility] Glucose 113(H) 70 - 99 mg/dL 07/15/2024 9:55 PM EDT [facility] Calcium 8.9 8.5 - 10.1 mg/dL 07/15/2024 9:55 PM EDT [facility] Osmolality Calc 269.2 mOsm/kg 9:55 PM EDT [facility] eGFR (mL/min/1.73m2) >60 >=60 mL/min/1.7 3m2 07/15/2024 9:55 PM EDT [facility] Comment:eGFR of <60 suggests chronic kidney disease if found over a 3 month period of time. eGFR <15 indicates renal failure. Blood Venipuncture / Unknown 07/15/2024 9:21 PM EDT 07/15/2024 9:31 PM EDT Patti English MD LAB BLOOD ORDERABLES Final Resu lt [facility] [address] [id number], [facility] [phone] * XR knee 1 or 2 views [...] - 2.0 mmol/L 06/28/2024 6:03 PM EDT [facility] Comment:If a Lactic Acid Lev el with Reflex if Indicated result is greater than 2.0, a Lactic Acid Level will be ordered to be collected 2 hours after the original collection time. Blood Venipuncture / Unknown 06/28/2024 5:32 PM EDT 06/28/2024 5:37 PM EDT Melvin Yee APRN LAB BLOOD ORDERABLES Final Result Performing Organization Address [facility] Co de Phone Number [facility] [address] [place] [address] * (ABNORMAL) C-Reactive Protein (06/28/2024 5:32 PM EDT) CRP 4.44(H) 0.05 - 0.25 mg/dL 06/28/2024 6:08 PM EDT [facility] Blood Venipuncture / Unknown 06/28/2024 5:32 PM EDT 06/28/2024 5:37 PM EDT Melvin Yee APRN LAB BLOOD ORDERABLES Final Result [facility] [address] [place] [address], [facility] [phone] * (ABNORMAL) Comprehensive metabolic panel (06/28/2024 5:32 PM EDT) Only the most recent of2 resultswithin the time period is included. Sodium 139 136 - 145 meq/L 06/28/2024 6:08 PM EDT [facility] Potassium 4.6 3.5 - 5.1 meq/L 06/28/2024 6:08 PM EDT [facility] Chloride 106 98 - 107 meq/L 06/28/2024 6:08 PM EDT [facility] CO2 25 21 - 32 meq/L 06/28/2024 6:08 PM EDT [facility] Calcium 9.0 8.5 - 10.1 mg/dL 06/28/2024 6:08 PM EDT [facility] Glucose 90 70 - 99 mg/dL 06/28/2024 6:08 PM EDT [facility] BUN 14 7 - 18 mg/dL 06/28/2024 6:08 PM EDT [facility] Creatinine 0.87 0.55 - 1.10 mg/dL 06/28/2024 6:08 PM EDT [facility] BUN/Creatinine 16 06/28/2024 6:08 PM EDT [facility] Albumin 3.1(L) 3.4 - 5.0 g/dL 06/28/2024 6:08 PM EDT [facility] Alkaline Phosphatase 102 46 - 116 U/L 06/28/2024 6:08 PM EDT [facility] ALT 32 12 - 78 U/L 06/28/2024 6:08 PM EDT [facility] AST 42(H) 15 - 37 U/L 06/28/2024 6:08 PM EDT [facility] Total Bilirubin 0.7 0.2 - 1.0 mg/dL 06/28/2024 6:08 PM EDT [facility] Protein, Total 7.3 6.4 - 8.2 gm/dL 06/28/2024 6:08 PM EDT [facility] Anion Gap 13 11 - 22 06/28/2024 6:08 PM EDT [facility] A/G Ratio 0.7 06/28/2024 6:08 PM EDT [facility] Globulin 4.2 g/dL 06/28/2024 6:08 PM EDT [facility] Osmolality Calc 277.5 mOsm/kg 6:08 PM EDT [facility] eGFR (mL/min/1.73m2) >60 >=60 mL/min/1.7 3m2 06/28/2024 6:08 PM EDT [facility] Comment:ESTIMATED GFR IS NOT ACCURATE CREATININE CLEARANCE IN PREDICTING GLOMERULAR FILTRATION RATE. ESTIMATED GFR IS NOT APPLICABLE FOR DIALYSIS PATIENTS. Blood Venipuncture / Unknown 06/28/2024 5:32 PM EDT 06/28/2024 5:37 PM EDT us Melvin Yee APRN LAB BLOOD ORDERABLES Final Result [facility] [address] [place] [address] * (ABNORMAL) Hemoglobin and Hematocrit (06/22/2024 3:45 AM EDT) Hemoglobin 11.6(L) 11.7 - 15.8 GM/DL 06/22/2024 4:09 AM EDT [facility] Hematocrit 34.7(L) 35.0 - 47.0 % 06/22/2024 4:09 AM EDT [facility] Blood Venipuncture / Unknown 06/22/2024 3:45 AM EDT 06/22/2024 3:57 AM EDT us Fausto Nieves MD LAB BLOOD ORDERABLES Final Res ult [facility] [address] [phone] * AN SINGLE LUMEN INTUBATION (06/21/2024 7:40 [...] a few minutes. Tidal volumes <200 with [id number] peak pressure, SpO2 started to taper down, reached 93%. Rocuronium IV then intubated successfully, see additional intubation note us Moe Francois [facility] ANESTHESIA ORDERABLES Final Result * Tissue Exam (06/21/2024 7:13 AM EDT) AP RESULT See Note: [facility] Comment: [facility] [address] [place] [address] or [phone] Noe Fuentes M.D., Inspector Glass Or Mirror PATIENT NAME LABORATORY NO. [id number] [id number] AGE SEX SSN CLIENT REF # [place] [id number] 1975 F [id number] MARCIA REQUESTING [place]gap[place] [address] DATE COLLECTED DATE RECEIVED DATE REPORTED 06/21/2024 06/21/2024 06/22/2024 DIAGNOSIS: A. BONE FRAGMENTS, GROSS ONLY, LEFT KNEE: GROSS DIAGNOSIS: Changes consistent with osteoarthritis B. HARDWARE, LEFT KNEE: GROSS DIAGNOSIS: Consistent with explanted hardware BG/sm CLINICAL HISTORY: Traumatic arthropathy, left knee SPECIMENS RECEIVED: A. BONE FRAGMENTS, GROSS ONLY, LEFT KNEE B. HARDWARE, LEFT KNEE Professional interpretation rendered by Paramjit Roldan M.D., F.C.A.P. at [email or web address], [employer], [address] [place] [address]. GROSS DESCRIPTION: A. Received in formalin labeled [...] BY: Paramjit Roldan M.D., F.C.A.P. CPT CODES: [id number] Bone STRUCTURE OF LEFT KNEE REGION / Unknown 06/21/2024 7:13 AM EDT Biomedical device (physical object) STRUCTURE OF LEFT KNEE REGION / Unknown 06/21/2024 9:07 AM EDT us Fausto Nieves MD PATHOLOGY/CYTOLOGY ORDERABLES Final Result [facility] [address] [place] [address] * HC PERIPHERAL NERVE BLOCK SINGLE SHOT [...] supine Prep: ChloraPrep Patient monitoring: heart rate, environmental monitoring technician and continuous pulse ox Block type: adductor [...] See attached images uploaded to MEDIA via [employer] ( due to [facility] not having an interface between the [employer] and Radiology). us Moe rFancois [employer] HYDRAULIC PRESS OPERATOR ANESTHESIA ORDERABLES Final Result * CT lower [...] ATRIAL RATE (MCT) 46 BPM GE MUSE NM Interval 206 ms GE MUSE QRS-INTERVAL (MSEC) 96 ms GE MUSE QT Interval 496 ms GE MUSE QTC Interval 434 ms GE MUSE P [place] 54 degrees GE MUSE R AXIS (MCT) 20 degrees GE MUSE T Wave [place] 21 degrees GE MUSE [place] Diagnosis Sinus bradycardia Otherwise normal ECG No previous ECGs available Confirmed by Emigdio CRUZ, NOE ([id number]) on 06/08/2024 11:45:34 AM GE MUSE 06/08/2024 11:2 7 AM EDT 06/08/2024 11:45 AM EDT Fausto Nieves MD ECG ORDERABLES Final Result GE MUSE * MRSA Screen (06/08/2024 11:13 AM EDT) MRSA by PCR [facility] MRSA Not Detected by PCR MRSA Not Detected by PCR DEVICE [id number] 06/08/2024 5:03 PM EDT [facility] Nasal BOTH ANTERIOR NARES / Unknown 06/08/2024 11:13 AM EDT 06/08/2024 11:40 AM EDT us Fausto Nieves MD MICROBIOLOGY - GENERAL ORDERAB LES Final Result [facility] [address] [phone] * X-ray chest PA and lateral (06/08/2024 [...] Final Result from Last 3 Months Insurance [id number] (Home) [address] [place] [address] [employer] Advance Directives For more information, please contact: [phone] * Full Code (Latest Code Status on File) Date Activated Date Inactivated Comments 06/21/2024 9:24 AM 06/22/2024 2:30 PM * Full Code Date Activated Date Inactivated Comments 06/21/2024 5:31 AM 06/21/2024 9:24 AM Care Teams [employer] Relationship Specialty Start Date End Date Gurjit Mena MD [address] [place] [address] PCP - General Family Medicine 06/17/24 Fausto Nieves MD [address] [place] [address] Orthopedic Surgery 06/30/24
--- OUTSIDE RECORDS SUMMARY | 2024-08-01 21:09 | XMS_ITS | Encounter Summary ---
Author Organization [employer] Address [address] [place] [address] Care Team Providers Care Certifier Name Role Phone Gurjit Mena MD Primary Care Provider +[phone]- [phone] Fausto Nieves MD Unavailable [phone] Encounter Details Date Type Department Care [...] Do you speak a language other than Swazi at [facility]? No 06/21/2024 [...] Info) Description 08/02/2024 10:15 AM EDT Treatment [facility] OP Physical Therapy [address] [place] [phone] Du You, DIESEL INSTRUCTOR 08/06/2024 10:15 AM EDT Treatment [facility] OP Physical Therapy [address] [place] [phone] Du You, DIESEL INSTRUCTOR 09/07/2024 10:00 AM EDT Office Visit [facility] Orthopedics - [address] [phone] Fausto Nieves MD [address] [place] [address] documented as of this encounter Visit Diagnoses Not on filedocumented in this encounter Care Teams Certifier Relationship Specialty Start Date End Date Gurjit Mena MD [address] [place] [address] PCP - General Family Medicine 06/17/24 Fausto Nieves MD [address] [place] [address] Orthopedic Surgery 06/30/24 documented as of this encounter
--- OUTSIDE RECORDS SUMMARY | 2024-08-01 21:09 | XMS_ITS | Encounter Summary ---
Author Organization [employer] Address [address] [place] [address] Care Team Providers Care Child Center Assistant Name Role Phone Gurjit Mena MD Primary Care Provider +[phone]- [phone] Fausto Nieves MD Unavailable [phone] Encounter Details Date Type Department Care Team (Latest Contact Info) Description 07/30/2024 Travel Social History Tobacco Use Types Packs/Day [...] Do you speak a language other than American at [facility]? No 06/21/2024 Do [...] Info) Description 08/02/2024 10:15 AM EDT Treatment [facility] OP Physical Therapy [address] [place] [phone] Du You, HUB BORER 08/06/2024 10:15 AM EDT Treatment [facility] OP Physical Therapy [address] [place] [phone] Du You, HUB BORER 09/07/2024 10:00 AM EDT Office Visit [facility] Orthopedics - [address] [phone] Fausto Nieves MD [address] [place] [address] documented as of this encounter Visit Diagnoses Not on filedocumented in this encounter Care Teams Child Center Assistant Relationship Specialty Start Date End Date Gurjit Mena MD [address] [place] [address] PCP - General Family Medicine 06/17/24 Fausto Nieves MD [address] [place] [address] Orthopedic Surgery 06/30/24 documented as of this encounter
--- OUTSIDE RECORDS SUMMARY | 2024-08-01 21:09 | XMS_ITS | Clinical Summary ---
Author Organization [facility] Address [address] [place] [address] Care Team Providers Care Veneer Clipper Helper Name Role Phone Ha Harrison MD Unavailable Simi Chung RN Unavailable Unavailable Pcp, No Unavailable Unknown, Attending Provider Primary Care Provide r Unavailable Source Comments This information has been disclosed to you from confidential records protectedfrom disclosure by state law. You shall make no further disclosure of thisinformation without the specific, written, and informed release of theindividual to whom it pertains, or as otherwise permitted by law. A generalauthorization for the release of medical or other information is not sufficientfor the purposes of therelease of HIV test results or diagnoses. [id number] Allergies Active Allergy Reactions Criticality Noted Date Comments Adhesive 06/16/2023 Medications escitalopram oxalate (LEXAPRO) 10 MG tablet Take 1 tablet (10 mg total) by mouth daily. Active traZODone (DESYREL) 100 MG tablet Take 1 tablet (100 mg total) by mouth at bedtime. Active famotidine (PEPCID) 40 MG tablet Take 1 tablet (40 mg total) by mouth 2 times a day. Active albuterol 90 mcg/actuation Inhl inhaler Inhale 2 puffs into the lungs every 6 hours as needed for Wheezing. Active estradioL (ESTRACE) 1 MG tablet Take 1 tablet (1 mg total) by mouth daily. Active fluticasone furoate-vilanter oL (BREO ELLIPTA) 200-25 mcg/dose DsDv Inhale into the lungs daily. Active cholecalciferol, vitamin D3, (VITAMIN D3) 125 mcg (5,000 unit) Tab Take by mouth. Active ipratropium (ATROVENT HFA) 17 mcg/actuation inhaler Inhale 2 puffs into the lungs every 6 hours. Active Active Problems Patient Care Coordination No te Formatting of this note migh t be different from the original. Ran Ayala is being referred by Dr. Ozzy Bowser to see Dr. Ha Harrison to discuss radiation therapy for Meningioma. . On 04/12/2023, the patient presented to ED with complaints of seizure-like activity. MRI of the brain with attention to the temporal lobe was ordered in follow up evaluation by neurology . Patient was playing with her granddaughter when she experienced seizure like activity. Patient went to a hospital located near her daughter's home in [facility] This nurse called them at [phone] Brain done on 04/08/2023is being pushed through PACS. Patient then visited [facility] and had an MRI on 05/14. Patient also had a MRI at [facility] today. Requested this scan to be pushed through PACS., and report emailed to Dr. Harrison. Cristina Andrew has information on these 2 scans in [employer],and will merge these scans to MR#. Patient stated she has not had any previous radiation or chemotherapy. Problem Noted Date Diagnosed Date Benign neoplasm of cerebral meninges 06/23/2023 Immunizations Immunization Administration Dates Next Due COVID-19, mRNA, Moderna monovalent, age 12+ 06/17,05/30/2020 Social History Tobacco Use Types Packs/Day Years Used Date Smoking Tobacco: Unknown Tobacco Cessation:Counseling Given: Not Answered PHQ-2 Answer Date Recorded PHQ-2 Total Score 0 06/23/2023 Yearly Questionnaire Answer Date Record ed Do you need any assistance w ith obtaining housing, meals, medication, transportation or medical equipment? No 06/22 Assistance needed for: Not on file 4 Yearly Questionnaire Answer Date Record ed Do you need any assistance w ith obtaining housing, meals, medication, transportation or medical equipment? No 06/22 Assistance needed for: Not on file 4 Yearly Questionnaire Answer Date Record ed Do you need any assistance w ith obtaining housing, meals, medication, transportation or medical equipment? No 06/22 Assistance needed for: Not on file Comments No Sex and Gender Information Value Date Recorded Sex Assigned at Not on file Legal Sex Female 11:11 AM EDT Gender Identity Not on file Sexual Orientation Not on file Last Filed Vital Signs Vital Sign Reading Time Taken Comments Blood Pressure 121/73 06/23/2023 10:12 AM EDT Pulse 57 06/23/2023 10:12 AM EDT Temperature 36 C (96.8 F) 06/23/2023 10:12 AM EDT Respiratory Rate 16 06/23/2023 10:1 2 AM EDT Oxygen Saturation 99% 06/23/2023 10: 12 AM EDT Inhaled Oxygen Concentration 99% 07/2023 10:12 AM EDT Weight 102.2 kg (225 lb 4.8 oz) 024 10:12 AM EDT Height 160 cm (5' 3 ) 06/23/2023 10:12 AM EDT Body Mass Index 39.91 06/23/2023 10:12 AM EDT Plan of Treatment Health Maintenance Due Date Last Done Comments Abnormal Colonoscopy Follow Up 1975 Diabetes Screening 1975 Hepatitis C Screening ([facility]) 1976 Alcohol Misuse Screening 1994 HIV Screening 1994 Cervical Cancer Screening/Pa p Smear ([facility]) 2006 Mammogram ([facility]) 2016 Immunization: COVID-19 (3 - Moderna risk series) 08/02/2020 07/05/2020, 05/30/2020 Cologuard (FIT-DNA) 2021 Colonoscopy 2021 Colorectal Cancer Screening ([facility]) 2021 Stool Testing (gFOBT) 2021 Depression Screening 06/22/2024 06/23/2023, 06/16/2023 Immunization: Influenza (MyChart) (Season Ended) 2024 02/22/2021, 11/09/2019 Immunization: DTaP/Tdap/Td ( 2 - Td or Tdap) 04/25/2029 04/26/2019 Immunization: Hepatitis B Completed 2022, 04/15/2022 Immunization: HPV Aged Out No longer eligible based on patient's age to complete this topic Immunization: Pneumococcal Aged Out N o longer eligible based on patient's age to complete this topic Insurance [employer] MDCD [facility] Care Teams Veneer Clipper Helper Relationship Specialty Start Date End Date Unknown, Attending Provider PCP - General 12/19/23 Ha Harrison MD [address] [place] [address] Consulting Physician Radiation Oncology 06/18/23 Simi hCung, RN Registered Nurse 06/18/23 Pcp, No No Address 12/15/23
--- OUTSIDE RECORDS SUMMARY | 2024-08-01 21:09 | XMS_ITS | Encounter Summary ---
Author Organization [employer] Address [address] [place] [address] Care Team Providers Care Housecalls Nurse Name Role Phone Gurjit Mena MD Primary Care Provider [phone]- [phone] Fausto Nieves MD Unavailable [phone] Encounter Details Date Type Department Care [...] Do you speak a language other than Hong Konger at [facility]? No 06/21/2024 Do you [...] Info) Description 08/02/2024 10:15 AM EDT Treatment [facility] OP Physical Therapy [address] [place] [phone] Du You, FRAME RUNNER 08/06/2024 10:15 AM EDT Treatment [facility] OP Physical Therapy [address] [place] [phone] Du You, FRAME RUNNER 09/07/2024 10:00 AM EDT Office Visit [facility] Orthopedics - [address] [phone] Fausto Nieves MD [address] [place] [address] documented as of this encounter Visit Diagnoses Not on filedocumented in this encounter Care Teams Housecalls Nurse Relationship Specialty Start Date End Date Gurjit Mena MD [address] [place] [address] PCP - General Family Medicine 06/17/24 Fausto Nieves MD [address] [place] [address] Orthopedic Surgery 06/30/24 documented as of this encounter
--- OUTSIDE RECORDS SUMMARY | 2024-08-01 21:09 | XMS_ITS | Encounter Summary ---
Author Organization [employer] Address [address] [place] [address] Care Team Providers Care Refractory Technician Name Role Phone Gurjit Mena MD Primary Care Provider [phone]- [phone] Encounter Details Date Type Department Care Team [...] Do you speak a language other than Japanese at [facility]? No 06/21/2024 Do you want help with [...] Info) Description 08/02/2024 10:15 AM EDT Treatment [facility] OP Physical Therapy [address] [place] [phone] Du You, LAWYER CRIMINAL 08/06/2024 10:15 AM EDT Treatment [facility] OP Physical Therapy [address] [place] [phone] Du You, LAWYER CRIMINAL 09/07/2024 10:00 AM EDT Office Visit [facility] Orthopedics - [address] [phone] Fausto Nieves MD [address] [place] [address] documented as of this encounter Visit Diagnoses Not on filedocumented in this encounter Care Teams Refractory Technician Relationship Specialty Start Date End Date Gurjit Mena MD [address] [place] [address] PCP - General Family Medicine 06/17/24 documented as of this encounter
--- OUTSIDE RECORDS SUMMARY | 2024-08-01 21:09 | XMS_ITS | Encounter Summary ---
Author Organization [employer] Address [address] [place] [address] Care Team Providers Care Rawhide Trimmer Name Role Phone Gurjit Mena MD Primary Care Provider [phone]- [phone] Fausto Nieves MD Unavailable [phone] Encounter Details Date Type Department Care [...] speak a language other than Lao at [facility]? No 06/21/2024 [...] Info) Description 08/02/2024 10:15 AM EDT Treatment [facility] OP Physical Therapy [address] [place] [phone] Du You, COLOR PASTE MIXER 08/06/2024 10:15 AM EDT Treatment [facility] OP Physical Therapy [address] [place] [phone] Du You, COLOR PASTE MIXER 09/07/2024 10:00 AM EDT Office Visit [facility] Orthopedics - [address] [phone] Fausto Nieves MD [address] [place] [address] documented as of this encounter Visit Diagnoses Not on filedocumented in this encounter Care Teams Rawhide Trimmer Relationship Specialty Start Date End Date Gurjit Mena MD [address] [place] [address] PCP - General Family Medicine 06/17/24 Fausto Nieves MD [address] [place] [address] Orthopedic Surgery 06/30/24 documented as of this encounter
--- OUTSIDE RECORDS SUMMARY | 2024-08-01 21:09 | XMS_ITS | Encounter Summary ---
Author Organization [employer] Address [address] [place] [address] Care Team Providers Care Vegetable Worker Name Role Phone Gurjit Mena MD Primary Care Provider [phone]- [phone] Fausto Nieves MD Unavailable [phone] Encounter Details Date Type Department Care [...] Do you speak a language other than Bahraini at [facility]? No 06/21/2024 Do you [...] Info) Description 08/02/2024 10:15 AM EDT Treatment [facility] OP Physical Therapy [address] [place] [phone] Du You, SPRINKLER IRRIGATION EQUIPMENT MECHANIC 08/06/2024 10:15 AM EDT Treatment [facility] OP Physical Therapy [address] [place] [phone] Du You, SPRINKLER IRRIGATION EQUIPMENT MECHANIC 09/07/2024 10:00 AM EDT Office Visit [facility] Orthopedics - [address] [phone] Fausto Nieves MD [address] [place] [address] documented as of this encounter Visit Diagnoses Not on filedocumented in this encounter Care Teams Vegetable Worker Relationship Specialty Start Date End Date Gurjit Mena MD [address] [place] [address] PCP - General Family Medicine 06/17/24 Fausto Nieves MD [address] [place] [address] Orthopedic Surgery 06/30/24 documented as of this encounter
--- OUTSIDE RECORDS SUMMARY | 2024-08-01 21:09 | XMS_ITS | Encounter Summary ---
Author Organization [employer] Address [address] [place] [address] Care Team Providers Care Solar Panel Installer Name Role Phone Marlo Leonardo Primary Care Provider [phone] Gurjit Mena MD Primary Care Provider [phone]- [phone] Fausto Nieves MD Unavailable [phone] Reason for Referral * Consultation (Routine) - Closed Specialty Diagnoses / Procedures Referred By William mata Referred To Contact Physical Therapy Diagnoses Other tear of medial meniscus of left knee as current injury, subsequent encounter Cesar Ellis MD [address] [id number] Phone: tel: fax: Referral ID Status Reason Start Date Expiration Date V isits Requested Visits Authorized [id number] Closed Specialty Services Required 08/19/2023 02/17/2024 20 20 Encounter Details Date Type Department Care Team (Late st Contact Info) Description 08/19/2023 Outside Orders [facility] OP Physical Therapy [address] [place] [phone] Cesar Ellis MD [address] [place] [address] Other tear of medial meniscus of left [...] Date Darrian rded Speak language other than Swedish at home Not on file 03/01/2023 Want [...] Info) Description 08/02/2024 10:15 AM EDT Treatment [facility] OP Physical Therapy [address] [place] [phone] Du You, SURJIT 08/06/2024 10:15 AM EDT Treatment [facility] OP Physical Therapy [address] [place] [phone] Du You PTA 09/07/2024 10:00 AM EDT Office Visit [facility] Orthopedics - [address] [phone] Fausto Nieves MD [facility] [place] [address] Scheduled Referrals Name Type Priority Associated Diagnoses [...] Primary documented in this encounter Care Teams Solar Panel Installer Relationship Specialty Start Date End Date Marlo Leonardo [address] [place] [address] PCP - General 12/20/22 06/16/24 Gurjit Mena MD [address] [facility] [address] [place] [address] PCP - General Family Medicine 06/17/24 Fausto Nieves MD [address] [place] [address] Orthopedic Surgery 06/30/24 documented as of this encounter
--- OUTSIDE RECORDS SUMMARY | 2024-08-01 21:09 | XMS_ITS | Encounter Summary ---
Author Organization [employer] Address [address] [place] [address] Care Team Providers Care Vocational Nurse Lvn Name Role Phone Marlo Leonardo Primary Care Provider [phone] Gurjit Mena MD Primary Care Provider [phone]- [phone] Fausto Nieves MD Unavailable [phone] Reason for Referral * Consultation (Routine) - Closed Specialty Diagnoses / Procedures Referred By William mata Referred To Contact Neurology Diagnoses Syncope and collapse Colette [place] [place] [address] Phone: tel: Krupa Ward MD [address] [facility] [address] [place] [address] Phone: tel: fax: Referral ID Status Reason Start Date Expiration Date V isits Requested Visits Authorized [id number] Closed Specialty Services Required 12/19/2023 12/18/2024 1 1 Encounter Details Date Type Department Care Team (Late st Contact Info) Description 12/19/2023 Outside Orders [facility] Neurology [address] [facility] [address] [place] [address] Colette Gallardo Maria De [place] [place] [address] Syncope and collapse (Primary Dx) Social History [...] Date Darrian rded Speak language other than Montserratian at home Not on file 03/01/2023 Want [...] [facility] OP Physical Therapy [address] [place] [phone] Du You, ASBESTOS SHINGLE ROOFER 08/06/2024 10:15 AM EDT Treatment [facility] OP Physical Therapy [address] [place] [phone] Du You, ASBESTOS SHINGLE ROOFER 09/07/2024 10:00 AM EDT Office Visit [facility] Orthopedics - [address] [phone] Fausto Nieves MD [address] [place] [address] Scheduled Referrals Name Type Priority Associated Diagnoses Order Schedule Ambulatory referral to Neurology Outpatient Referral Routine Syncope and collapse Ordered: 12/19/2023 documented as of this encounter Visit Diagnoses Diagnosis Syncope and collapse- Primary documented in this encounter Care Teams Vocational Nurse Lvn Relationship Specialty Start Date End Date Marlo Leonardo [address] [place] [address] PCP - General 12/20/22 06/16/24 Gurjit Mena MD [address] [facility] [address] [place] [address] PCP - General Family Medicine 06/17/24 Fausto Nieves MD [address] [place] [address] Orthopedic Surgery 06/30/24 documented as of this encounter
--- OUTSIDE RECORDS SUMMARY | 2024-08-01 21:10 | XMS_ITS | Encounter Summary ---
Author Organization [employer] Address [address] [place] [address] Care Team Providers Care Addresser Name Role Phone Gurjit Mena MD Primary Care Provider [phone]- [phone] Encounter Details Date Type Department Care Team [...] Do you speak a language other than East Timorese at [facility]? No 06/21/2024 Do you want help [...] Info) Description 08/02/2024 10:15 AM EDT [facility] [address] [place] [phone] Du You, CIRCUS TRAIN SUPERVISOR 08/06/2024 10:15 AM EDT [facility] [address] [place] [phone] Du You, CIRCUS TRAIN SUPERVISOR 09/07/2024 10:00 AM EDT Office Visit [facility] Orthopedics - [address] [phone] Fausto Nieves MD [address] [place] [address] documented as of this encounter Visit Diagnoses Not on filedocumented in this encounter Care Teams Addresser Relationship Specialty Start Date End Date Gurjit Mena MD [address] [place] [address] PCP - General Family Medicine 06/17/24 documented as of this encounter
--- OUTSIDE RECORDS SUMMARY | 2024-08-01 21:10 | XMS_ITS | Encounter Summary ---
Author Organization [employer] Address [address] [place] [address] Care Team Providers Care Literary Agent Name Role Phone Gurjit Mena MD Primary Care Provider [phone] Encounter Details Date Type Department Care Team [...] Do you speak a language other than Saudi Arabian at [facility]? No 06/21/2024 Do you want [...] Info) Description 08/02/2024 10:15 AM EDT Treatment [facility] OP Physical Therapy [address] [place] [phone] Du You, MEDICAL SOCIAL WORKER 08/06/2024 10:15 AM EDT Treatment [facility] OP Physical Therapy [address] [place] [phone] Du You, MEDICAL SOCIAL WORKER 09/07/2024 10:00 AM EDT Office Visit [facility] Orthopedics - [address] [phone] Fausto Nieves MD [address] [place] [address] documented as of this encounter Visit Diagnoses Not on filedocumented in this encounter Care Teams Literary Agent Relationship Specialty Start Date End Date Gurjit Mena MD [address] [place] [address] PCP - General Family Medicine 06/17/24 documented as of this encounter
--- OUTSIDE RECORDS SUMMARY | 2024-08-01 21:10 | XMS_ITS | Encounter Summary ---
Author Organization [employer] Address [address] [place] [address] Care Team Providers Care Network Design Architect Name Role Phone Gurjit Mena MD Primary Care Provider [phone] Encounter Details Date Type Department Care Team (Late st Contact Info) Description 06/17/2024 Surgery Prep [facility] Orthopedics - [address] [place] [address] Sho Rain PA-C [address] [place] [address] Traumatic arthritis of left knee (Primary [...] Date Darrian rded Speak language other than Tajik at home Not on file 03/01/2023 Want [...] 10:08 AM EDT NAME: Ran Ayala CSN: [id number] : 1975 PCP: Gurjit Mena MD REASON [...] your prescription refills for excessive abuse or retirement use. If necessary, you will be referred to painting manager. We will monitor your use of scheduled drugs through the KD program. In addition, we will follow the monitoring procedures required by the [facility]. The side effects of Schedule II [...] Info) Description 08/02/2024 10:15 AM EDT Treatment [facility] OP Physical Therapy [address] [place] [phone] Du You, COMMERCIAL DRONE SOFTWARE DEVELOPER 08/06/2024 10:15 AM EDT Treatment [facility] OP Physical Therapy [address] [place] [phone] Du You, COMMERCIAL DRONE SOFTWARE DEVELOPER 09/07/2024 10:00 AM EDT Office Visit [facility] Orthopedics - [address] [phone] Fausto Nieves MD [address] [place] [address] documented as of this encounter Visit Diagnoses Diagnosis Traumatic arthritis of left knee- Primary documented in this encounter Care Teams Network Design Architect Relationship Specialty Start Date End Date Gurjit Mena MD [address] [place] [address] PCP - General Family Medicine 06/17/24 documented as of this encounter
--- OUTSIDE RECORDS SUMMARY | 2024-08-01 21:10 | XMS_ITS | Encounter Summary ---
Author Organization [facility] Address [address] [facility] [address] Care Team Providers Care Access Rn Name Role Phone Marlo Leonardo Primary Care Provider [phone] Encounter Details Date Type Department Care Team [...] Date Darrian rded Speak language other than Latvian at home Not on file 03/01/2023 Want [...] [facility] Physical Therapy [address] [place] [phone] Du You, STRATEGIC CLIENT EXECUTIVE 08/06/2024 10:15 AM EDT Treatment [facility] Therapy [address] [place] [phone] Du You, STRATEGIC CLIENT EXECUTIVE 09/07/2024 10:00 AM EDT Office Visit [facility] - [address] [phone] Fausto Nieves MD [address] [place] [phone] documented as of this encounter Visit Diagnoses Not on filedocumented in this encounter Care Teams Access Rn Relationship Specialty Start Date End Date Marlo Leonardo [address] [place] [phone] PCP - General 12/20/22 06/16/24 documented as of this encounter
--- OUTSIDE RECORDS SUMMARY | 2024-08-01 21:10 | XMS_ITS | Encounter Summary ---
Author Organization [facility] [employer] Address [address] [facility] [place] [address] Care Team Providers Care Full Time Paramedic Name Role Phone Marlo Leonardo Primary Care Provider [phone] Encounter Details Date Type Department Care Team [...] Date Darrian rded Speak language other than Mauritanian at home Not on file 03/01/2023 Want [...] Info) Description 08/02/2024 10:15 AM EDT Treatment [facility] OP Physical Therapy [address] [place] [phone] Du You, POLICE RECORDS CLERK 08/06/2024 10:15 AM EDT Treatment [facility] OP Physical Therapy [address] [place] [phone] Du You, POLICE RECORDS CLERK 09/07/2024 10:00 AM EDT Office Visit [facility] - [address] [phone] Fausto Nieves MD [address] [place] [phone] documented as of this encounter Visit Diagnoses Not on filedocumented in this encounter Care Teams Full Time Paramedic Relationship Specialty Start Date End Date Marlo Leonardo [address] [place] [phone] PCP - General 12/20/22 06/16/24 documented as of this encounter
--- NOTE | 2024-08-01 21:13 | XR_ITS ---
PROCEDURE INFORMATION: Exam: XR Chest Exam date and time: 08/01/2024 9:21 PM Age: 48 years old Clinical indication: Pain; Shortness of breath; Left-sided; Additional info: Chest pain/shortness of breath TECHNIQUE: Imaging protocol: Radiologic exam of the chest. Views: 1 view. COMPARISON: CR XR CHEST 2V 04/22/2024 5:45 PM FINDINGS: Tubes, catheters and devices: Left chest wall electronic device Lungs: No focal consolidation. Pleural spaces: No pneumothorax. Heart/Mediastinum: Unremarkable cardiomediastinal silhouette. Bones/joints: No acute osseous findings. Soft tissues: Surgical clips breasts IMPRESSION: No focal consolidation.
--- NOTE | 2024-08-01 21:14 | ED_ITS ---
Discharge Plan Disposition Patient Disposition: Home, Self-Care Condition: Good Prescriptions Prescriptions: No Action escitalopram oxalate 20 mg tablet 20 mg PO DAILY Patient Comments: TAKE 1 TABLET BY MOUTH ONCE DAILY buspirone 10 mg tablet 10 mg PO NEEDED PRN (Reason: Anxiety) Patient Comments: TAKE 1 TABLET BY MOUTH THREE TIMES DAILY hydrocortisone [Proctosol HC] 2.5 % cream with perineal applicator 1 applic FL QD-BID PRN (Reason: hemorrhoids) Qty: 30 0RF albuterol sulfate [Ventolin HFA] 90 mcg/actuation HFA aerosol inhaler 90 mcg inhalation NEEDED PRN (Reason: SOA) Patient Comments: INHALE 2 PUFFS BY MOUTH EVERY 4 TO 6 HOURS NEEDED FOR SHORTNESS OF BREATH FOR WHEEZING dicyclomine 20 mg tablet 20 mg PO QID Patient Comments: TAKE 1 TABLET BY MOUTH 4 TIMES DAILY FOR 8 DAYS ondansetron 4 mg tablet,disintegrating 4 mg PO Q4H PRN Patient Comments: DISSOLVE 1 TABLET IN MOUTH EVERY 4 HOURS NEEDED FOR NAUSEA AND VOMITING UP TO FOR 7 DAYS naproxen 500 mg tablet 500 mg PO BID Patient Comments: TAKE 1 TABLET BY MOUTH TWICE DAILY WITH BREAKFAST AND WITH SUPPER FOR 5 DAYS trazodone 100 mg tablet 100 mg PO HS Patient Comments: TAKE 2 TABLETS BY MOUTH NIGHTLY NEEDED FOR SLEEP estradiol 1 mg tablet 1 mg PO DAILY levocetirizine [Xyzal] 5 mg tablet 5 mg PO DAILY Qty: 30 2RF Referrals Follow up/Referrals: Gurjit Mena MD [Primary Care Provider, Internal Medicine] - See instructions Activity Restrictions/Add. Instructions Additional Instructions/Restrictions: You were evaluated in the ER and are believed to be appropriate for discharge at this time. Continue all home medications as previously prescribed. Call your information technology architect office first thing in the morning and make an appointment for close follow-up. Also follow-up with your primary care doctor. Return to the ER with any new, worsening, or otherwise concerning symptoms. Clinical Impressions Clinical Impression: Chest pain Print Language Print Language: Latvian Discharge ED Provider: Doni Nava General Adult HPI <VAL Israel - Last Filed: 08/01/24 22:34> General Chief complaint: Chest Pain Stated complaint: chest pain Time Seen by Provider: 08/01/24 21:13 Mode of Arrival: EMS Source of Information: Patient Limitations: No Limitations History of Present Illness HPI narrative: 48-year-old female presents to the emergency department with an episode of left- sided substernal chest pain that is nonradiating that occurred around 6:40 PM today, patient was at rest, describes a sensation of my heart fluttering , then describes pressure-like pain that she initially describes a 10 out of 10, now currently a 5 out of 10. Patient has any fever or chills, admits to shortness of breath, no abdominal pain no nausea no vomiting no constipation no diarrhea no urinary type symptomatology, patient is a former smoker, denies any alcohol or drug use, patient is status post total knee replacement on the left, in June 2024, other past medical history consistent with MDD, CONSUELO, she is on OCP, FARHEEN on CPAP, history of loop recorder, history of partial thyroidectomy, data deficient history of meningioma. Initial triage vitals are unremarkable. Of note patient received 325 mg p.o. aspirin and 3 nitroglycerin sublingual tablets and route via EMS which did provide some relief to her symptomatology Onset (ago): hour(s) Related Data Home Medications ?Medication ?Instructions ?Recorded ?Confirmed estradiol 1 mg tablet 1 mg PO DAILY 08/15/2307/21 trazodone 100 mg tablet 100 mg PO HS 09/04/23 buspirone 10 mg tablet 10 mg PO NEEDED PRN Anxie ty 05/25/24 07/21/24 escitalopram oxalate 20 mg tablet 20 mg PO DAILY 05/2507/21/24 albuterol sulfate 90 mcg/actuation 90 mcg inhalation A S NEEDED PRN SOA 06/10/24 07/21/24 aerosol inhaler (Ventolin HFA) dicyclomine 20 mg tablet 20 mg PO QID 07/21/24 naproxen 500 mg tablet 500 mg PO BID 07/21/2407/21 ondansetron 4 mg disintegrating 4 mg PO Q4H PRN 07/21/24 tablet Previous Rx's ?Medication ?Instructions ?Recorded levocetirizine 5 mg tablet (Xyzal) 5 mg PO DAILY #30 t abs 12/10/23 hydrocortisone 2.5 % topical cream 1 applic FL QD-BID PRN hemorrhoids 04/08/25 with perineal applicator #30 grams (Proctosol HC) Allergies Allergy/AdvReac Type Severity Reaction Status Date / Time adhesive tape Allergy Mild Rash Verified 07/21/24 10:19 COUNTS INCLUDE 234 BEDS AT THE [facility] <VAL Israel - Last Filed: 08/01/24 22:34> COUNTS INCLUDE 234 BEDS AT THE [facility] Disclaimer: The information contained in this section may have been updated after the patient was seen, as this information can be updated by other users. Medical History Left knee DJD Abnormal cardiovascular stress test Atypical angina Preop testing Sleep apnea Thyroid Nodule Hearing loss in right ear Loose left total knee arthroplasty Chronic sinusitis H/O Eustachian tube dysfunction Hearing difficulty of right ear Dyspnea on exertion FARHEEN (obstructive sleep apnea) Meningioma Seizures Ovarian cyst Breast cancer Hx of thyroid cancer Implantable loop recorder present Tachycardia History of hypertension PTSD (post-traumatic stress disorder) Anxiety Depression Surgical History History of partial thyroidectomy History of loop recorder H/O: knee surgery History of carpal tunnel repair History of cholecystectomy History of abdominal hysterectomy total, [place] Family History Other Anemia Asthma Cancer Coronary artery disease Diabetes FHx: mental illness Heart attack Hyperlipidemia Hypertension Thyroid disorder Social History Smoking Status: Unknown if ever smoked alcohol intake: current alcohol intake frequency: holidays/special occasions only counseling provided: none substance use type: denies use current occupational status: unemployed Travel in the last 8 weeks?: None household members: none housing: house marital status: single number of children: 3 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 current occupational exposures/hazards: No caffeine: No Have you lived/traveled outside US in past 30 days?: No Contact w/someone who lives/traveled outside US past 30 days?: No Exposure to someone with infectious disease in past 14 days?: No Do you have a fever (greater than 100.4 F or 38 C)?: No Have you tested positive for COVID-19?: No Exposed to someone with COVID-19 in past 14 days?: No Do you have a sore throat?: No Do you have a cough?: No Do you have any weakness?: No Do you have any diarrhea?: No Are you experiencing any unusual bleeding?: No Do you have any muscle aches/pain?: No Do you have any abdominal pain?: No Are you experiencing loss of taste or smell?: No Other Medical History Have you received the Flu Vaccine for this season: No Have you received the Pneumonia Vaccine: No <VAL Israel - Last Filed: 08/01/24 22:34> ROS Obtained: Yes All systems reviewed & no additional complaints except as documented Physical Exam <VAL Israel - Last Filed: 08/01/24 22:34> General General appearance: alert and in no apparent distress Head Head exam: atraumatic and normocephalic Eye Eye exam: Present normal appearance, PERRL and EOMI Neck Neck exam: Present full ROM; Absent meningismus Chest Chest inspection: Present normal inspection Respiratory Respiratory exam: Absent respiratory distress, wheezes, stridor, accessory muscle use or prolonged expiratory phase Cardiovascular Cardiovascular exam: Present normal rhythm and other (Pulses equal and symmetric in bilateral upper and lower extremities) Abdominal Exam Abdominal exam: Absent distention, tenderness, guarding or rebound Extremities Exam Extremities exam: Absent edema Neurological Exam Neurological exam: Present alert Psychiatric Psychiatric exam: Present normal affect Skin Skin exam: Present warm and dry Medical Decision Making <VAL Israel - Last Filed: 08/01/24 22:34> Medical Records Medical records reviewed: Yes I reviewed the patient's medical records. Screening: Per USPSTF and CDC recommendations, given the prevalence of disease in our region, it is our hospital?s policy to screen for HIV and viral Hepatitis for all patients aged 18 and over and those with ongoing risk factors. [place] Inquiry Pt receiving controlled substance: No [place] was queried for this patient: No Vital Signs: 08/01/24 21:09 08/01/24 21:31 08/01/24 21:45 Temperature 98.1 F Temperature Source Oral Pulse Rate 68 58 L Pulse Rate [Right] 66 Respiratory Rate 16 13 Blood Pressure 124/72 Blood Pressure [Right Arm] 130/81 Blood Pressure Mean Blood Pressure Mean [Right Arm] 97 02 Sat by Pulse Oximetry 98 97 97 08/01/24 21:46 08/01/24 22:00 08/01/24 22:00 Temperature Temperature Source Pulse Rate 58 L 53 L 56 L Pulse Rate [Right] Respiratory Rate 9 L 12 Blood Pressure 108/81 L Blood Pressure [Right Arm] Blood Pressure Mean 90 Blood Pressure Mean [Right Arm] 02 Sat by Pulse Oximetry 97 97 08/01/24 22:31 08/01/24 23:00 08/01/24 23:30 Temperature Temperature Source Pulse Rate 55 L 56 L 56 L Pulse Rate [Right] Respiratory Rate 13 14 Blood Pressure 108/81 L 121/76 116/78 Blood Pressure [Right Arm] Blood Pressure Mean 91 Blood Pressure Mean [Right Arm] 02 Sat by Pulse Oximetry 97 97 95 08/02/24 00:00 08/02/24 00:30 Temperature Temperature Source Pulse Rate 53 L 53 L Pulse Rate [Right] Respiratory Rate 14 9 L Blood Pressure 120/75 116/80 Blood Pressure [Right Arm] Blood Pressure Mean 88 Blood Pressure Mean [Right Arm] 02 Sat by Pulse Oximetry 97 97 Lab Data Lab results reviewed: Yes I reviewed the patient's lab results. Lab Results 08/01/24 20:50: WBC 7.3, RBC 3.92 L, Hgb 11.8 L, Hct 36.5 L, MCV 93.1, MCH 30.1, MCHC 32.3, RDW 12.4, Plt Count 269, MPV 11.1 H, Neut % (Auto) 54.9, Lymph % (Auto) 35.5, [place] % (Auto) 5.3, Eos % (Auto) 3.7, Baso % (Auto) 0.5, Neut # (Auto) 4.0, Lymph # (Auto) 2.6, [place] # (Auto) 0.4, Eos # (Auto) 0.3, Baso # (Auto) 0.0, PT 10.1, INR 0.90, D-Dimer 1.29 H, Sodium 136, Potassium 3.7, C hloride 108 H, Carbon Dioxide 24, Anion Gap 7.7, BUN 11, Creatinine 0.80, Estimated Creat Clear 128, Estimated GFR 77, Est GFR ( Amer) 93, Glucose 108 H, Calcium 8.8, Magnesium 1.7, Total Bilirubin 0.2, AST 33, ALT 14, Alkaline Phosphatase 83, Troponin I < 0.01, NT-Pro-B Natriuret Pep 98.8, Total Protein 6.5, Albumin 3.7, Globulin 2.8, Albumin/Globulin Ratio 1.3, Lipase 35 08/02/24 00:00: Troponin I < 0.01 08/01/24 20:50 08/01/24 20:50 Orders (Tests/Meds): ED MEDICATIONS Generic Name Dose Route Start Last Admin Trade Name Lewis PRN Reason Stop Dose Admin Sodium Chloride 10 ml 08/01/24 22:40 08/01/24 22:41 Sodium Chloride 0.9% 10ml Syr (Rad Only) IV 08/31/24 22:39 10 ml NEEDED PRN Administration Maintain IV Site Discontinued Medications Generic Name Dose Route Start Last Admin Trade Name Lewis PRN Reason Stop Dose Admin Iopamidol 70 ml 08/01/24 22:40 08/01/24 22:41 Iopamidol-370 (76%);100ml Bottle IV 08/01/24 22:41 70 ml ONCE ONE Administration Morphine Sulfate 4 mg 08/01/24 21:30 08/01/24 21:44 Morphine 4mg/Ml Syringe IV 08/01/24 21:31 4 mg ONCE ONE Administration Ondansetron HCl 4 mg 08/01/24 21:31 08/01/24 21:44 Ondansetron 4mg/2ml Vial IV 08/01/24 21:32 4 mg ONCE ONE Administration Sodium Chloride 40 ml 08/01/24 22:40 08/01/24 22:41 0.9 % Sodium Chloride 50 Ml Vial IV 08/01/24 22:41 40 ml ONCE ONE Administration ORDERS Category Date Time Status CT angio chest PE protocol Stat Cat Scan 08/01/24 22:07 Completed XR chest portable Stat Exams 08/01/24 21:13 Completed Complete Blood Count Auto Diff Stat Lab 08/01/24 20:50 Completed Comprehensive Metabolic Panel Stat Lab 08/01/24 20:50 Completed D-Dimer Stat Lab 08/01/24 20:50 Completed Lipase Stat Lab 08/01/24 20:50 Completed Magnesium Stat Lab 08/01/24 20:50 Completed NT Pro Brain Natriuretic Pep. Stat Lab 08/01/24 20:50 Completed PT INR [Prothrombin Time INR] Stat Lab 08/01/24 20:50 Completed Troponin I Q3H Lab 08/02/24 00:00 Completed Troponin I Q3H Lab 08/02/24 03:15 Ordered Troponin I Stat Lab 08/01/24 20:50 Completed Medical Decision Narrative: 48-year-old female presents to the emergency department with chest pain, shortness of breath, differential diagnosis include but not limited to, ACS, cardiac arrhythmia, electrolyte disturbance, costochondritis, panic attack, anxiety reaction, PE, pneumonia, gastritis, GERD, among others. Will obtain EKG, chest x-ray, CBC CMP, D-dimer lipase magnesium level PT/INR, troponin, proBNP, will give 4 mg IV Zofran, 4 mg IV morphine for pain and nausea. CBC is notable for the cytopenia at 3.9, hemoglobin is decreased 11.8, hematocrit is decreased 36.5 PT/INR within normal limits CMP is unremarkable Initial troponin is less than 0.01. D-dimer is elevated at 1.29 thus obtain CTA chest with without contrast PE protocol for further evaluation/characterization. I discussed patient case with attending physician Dr. Nava at shift change, he will be assuming the patient's care/workup, disposition is pending CTA read and repeat Trop <Doni Nava MD - Last Filed: 08/01/24 22:55> Vital Signs: 08/01/24 21:09 08/01/24 21:31 08/01/24 21:45 Temperature 98.1 F Temperature Source Oral Pulse Rate 68 58 L Pulse Rate [Right] 66 Respiratory Rate 16 13 Blood Pressure 124/72 Blood Pressure [Right Arm] 130/81 Blood Pressure Mean Blood Pressure Mean [Right Arm] 97 02 Sat by Pulse Oximetry 98 97 97 08/01/24 21:46 08/01/24 22:00 08/01/24 22:00 Temperature Temperature Source Pulse Rate 58 L 53 L 56 L Pulse Rate [Right] Respiratory Rate 9 L 12 Blood Pressure 108/81 L Blood Pressure [Right Arm] Blood Pressure Mean 90 Blood Pressure Mean [Right Arm] 02 Sat by Pulse Oximetry 97 97 08/01/24 22:31 08/01/24 23:00 08/01/24 23:30 Temperature Temperature Source Pulse Rate 55 L 56 L 56 L Pulse Rate [Right] Respiratory Rate 13 14 Blood Pressure 108/81 L 121/76 116/78 Blood Pressure [Right Arm] Blood Pressure Mean 91 Blood Pressure Mean [Right Arm] 02 Sat by Pulse Oximetry 97 97 95 08/02/24 00:00 08/02/24 00:30 Temperature Temperature Source Pulse Rate 53 L 53 L Pulse Rate [Right] Respiratory Rate 14 9 L Blood Pressure 120/75 116/80 Blood Pressure [Right Arm] Blood Pressure Mean 88 Blood Pressure Mean [Right Arm] 02 Sat by Pulse Oximetry 97 97 Lab Data Lab Results 08/01/24 20:50: WBC 7.3, RBC 3.92 L, Hgb 11.8 L, Hct 36.5 L, MCV 93.1, MCH 30.1, MCHC 32.3, RDW 12.4, Plt Count 269, MPV 11.1 H, Neut % (Auto) 54.9, Lymph % (Auto) 35.5, [place] % (Auto) 5.3, Eos % (Auto) 3.7, Baso % (Auto) 0.5, Neut # (Auto) 4.0, Lymph # (Auto) 2.6, [place] # (Auto) 0.4, Eos # (Auto) 0.3, Baso # (Auto) 0.0, PT 10.1, INR 0.90, D-Dimer 1.29 H, Sodium 136, Potassium 3.7, C hloride 108 H, Carbon Dioxide 24, Anion Gap 7.7, BUN 11, Creatinine 0.80, Estimated Creat Clear 128, Estimated GFR 77, Est GFR ( Amer) 93, Glucose 108 H, Calcium 8.8, Magnesium 1.7, Total Bilirubin 0.2, AST 33, ALT 14, Alkaline Phosphatase 83, Troponin I < 0.01, NT-Pro-B Natriuret Pep 98.8, Total Protein 6.5, Albumin 3.7, Globulin 2.8, Albumin/Globulin Ratio 1.3, Lipase 35 08/02/24 00:00: Troponin I < 0.01 Orders (Tests/Meds): ED MEDICATIONS Generic Name Dose Route Start Last Admin Trade Name Freq PRN Reason Stop Dose Admin Sodium Chloride 10 ml 08/01/24 22:40 08/01/24 22:41 Sodium Chloride 0.9% 10ml Syr (Rad Only) IV 08/31/24 22:39 10 ml NEEDED PRN Administration Maintain IV Site Discontinued Medications Generic Name Dose Route Start Last Admin Trade Name Freq PRN Reason Stop Dose Admin Iopamidol 70 ml 08/01/24 22:40 08/01/24 22:41 Iopamidol-370 (76%);100ml Bottle IV 08/01/24 22:41 70 ml ONCE ONE Administration Morphine Sulfate 4 mg 08/01/24 21:30 08/01/24 21:44 Morphine 4mg/Ml Syringe IV 08/01/24 21:31 4 mg ONCE ONE Administration Ondansetron HCl 4 mg 08/01/24 21:31 08/01/24 21:44 Ondansetron 4mg/2ml Vial IV 08/01/24 21:32 4 mg ONCE ONE Administration Sodium Chloride 40 ml 08/01/24 22:40 08/01/24 22:41 0.9 % Sodium Chloride 50 Ml Vial IV 08/01/24 22:41 40 ml ONCE ONE Administration ORDERS Category Date Time Status CT angio chest PE protocol Stat Cat Scan 08/01/24 22:07 Completed XR chest portable Stat Exams 08/01/24 21:13 Completed Complete Blood Count Auto Diff Stat Lab 08/01/24 20:50 Completed Comprehensive Metabolic Panel Stat Lab 08/01/24 20:50 Completed D-Dimer Stat Lab 08/01/24 20:50 Completed Lipase Stat Lab 08/01/24 20:50 Completed Magnesium Stat Lab 08/01/24 20:50 Completed NT Pro Brain Natriuretic Pep. Stat Lab 08/01/24 20:50 Completed PT INR [Prothrombin Time INR] Stat Lab 08/01/24 20:50 Completed Troponin I Q3H Lab 08/02/24 00:00 Completed Troponin I Q3H Lab 08/02/24 03:15 Ordered Troponin I Stat Lab 08/01/24 20:50 Completed Medical Decision Narrative: 48-year-old female presents to the emergency department with chest pain, shortness of breath, differential diagnosis include but not limited to, ACS, cardiac arrhythmia, electrolyte disturbance, costochondritis, panic attack, anxiety reaction, PE, pneumonia, gastritis, GERD, among others. Will obtain EKG, chest x-ray, CBC CMP, D-dimer lipase magnesium level PT/INR, troponin, proBNP, will give 4 mg IV Zofran, 4 mg IV morphine for pain and nausea. CBC is notable for the cytopenia at 3.9, hemoglobin is decreased 11.8, hematocrit is decreased 36.5 PT/INR within normal limits CMP is unremarkable Initial troponin is less than 0.01. D-dimer is elevated at 1.29 thus obtain CTA chest with without contrast PE protocol for further evaluation/characterization. I discussed patient case with attending physician Dr. Nava at shift change, he will be assuming the patient's care/workup, disposition is pending CTA read and repeat Trop Patient was placed in observation beginning at 9 PM in order to evolving HI with delta troponins and determine need for admission versus home-going. The patient was provided serial exams, cardiac monitoring, CT and delta troponins while awaiting results. Independent interpretation of results demonstrated no acute pulmonary embolus or obvious intrathoracic abnormality on chest CT. Prior to final read and delta troponin, care handed off to oncoming physician <Tanner Brown MD - Last Filed: 08/02/24 01:00> Vital Signs: 08/01/24 21:09 08/01/24 21:31 08/01/24 21:45 Temperature 98.1 F Temperature Source Oral Pulse Rate 68 58 L Pulse Rate [Right] 66 Respiratory Rate 16 13 Blood Pressure 124/72 Blood Pressure [Right Arm] 130/81 Blood Pressure Mean Blood Pressure Mean [Right Arm] 97 02 Sat by Pulse Oximetry 98 97 97 08/01/24 21:46 08/01/24 22:00 08/01/24 22:00 Temperature Temperature Source Pulse Rate 58 L 53 L 56 L Pulse Rate [Right] Respiratory Rate 9 L 12 Blood Pressure 108/81 L Blood Pressure [Right Arm] Blood Pressure Mean 90 Blood Pressure Mean [Right Arm] 02 Sat by Pulse Oximetry 97 97 08/01/24 22:31 08/01/24 23:00 08/01/24 23:30 Temperature Temperature Source Pulse Rate 55 L 56 L 56 L Pulse Rate [Right] Respiratory Rate 13 14 Blood Pressure 108/81 L 121/76 116/78 Blood Pressure [Right Arm] Blood Pressure Mean 91 Blood Pressure Mean [Right Arm] 02 Sat by Pulse Oximetry 97 97 95 08/02/24 00:00 08/02/24 00:30 Temperature Temperature Source Pulse Rate 53 L 53 L Pulse Rate [Right] Respiratory Rate 14 9 L Blood Pressure 120/75 116/80 Blood Pressure [Right Arm] Blood Pressure Mean 88 Blood Pressure Mean [Right Arm] 02 Sat by Pulse Oximetry 97 97 Lab Data Lab Results 08/01/24 20:50: WBC 7.3, RBC 3.92 L, Hgb 11.8 L, Hct 36.5 L, MCV 93.1, MCH 30.1, MCHC 32.3, RDW 12.4, Plt Count 269, MPV 11.1 H, Neut % (Auto) 54.9, Lymph % (Auto) 35.5, [place] % (Auto) 5.3, Eos % (Auto) 3.7, Baso % (Auto) 0.5, Neut # (Auto) 4.0, Lymph # (Auto) 2.6, [place] # (Auto) 0.4, Eos # (Auto) 0.3, Baso # (Auto) 0.0, PT 10.1, INR 0.90, D-Dimer 1.29 H, Sodium 136, Potassium 3.7, C hloride 108 H, Carbon Dioxide 24, Anion Gap 7.7, BUN 11, Creatinine 0.80, Estimated Creat Clear 128, Estimated GFR 77, Est GFR ( Amer) 93, Glucose 108 H, Calcium 8.8, Magnesium 1.7, Total Bilirubin 0.2, AST 33, ALT 14, Alkaline Phosphatase 83, Troponin I < 0.01, NT-Pro-B Natriuret Pep 98.8, Total Protein 6.5, Albumin 3.7, Globulin 2.8, Albumin/Globulin Ratio 1.3, Lipase 35 08/02/24 00:00: Troponin I < 0.01 Orders (Tests/Meds): ED MEDICATIONS Generic Name Dose Route Start Last Admin Trade Name Lewis PRN Reason Stop Dose Admin Sodium Chloride 10 ml 08/01/24 22:40 08/01/24 22:41 Sodium Chloride 0.9% 10ml Syr (Rad Only) IV 08/31/24 22:39 10 ml NEEDED PRN Administration Maintain IV Site Discontinued Medications Generic Name Dose Route Start Last Admin Trade Name Frelance PRN Reason Stop Dose Admin Iopamidol 70 ml 08/01/24 22:40 08/01/24 22:41 Iopamidol-370 (76%);100ml Bottle IV 08/01/24 22:41 70 ml ONCE ONE Administration Morphine Sulfate 4 mg 08/01/24 21:30 08/01/24 21:44 Morphine 4mg/Ml Syringe IV 08/01/24 21:31 4 mg ONCE ONE Administration Ondansetron HCl 4 mg 08/01/24 21:31 08/01/24 21:44 Ondansetron 4mg/2ml Vial IV 08/01/24 21:32 4 mg ONCE ONE Administration Sodium Chloride 40 ml 08/01/24 22:40 08/01/24 22:41 0.9 % Sodium Chloride 50 Ml Vial IV 08/01/24 22:41 40 ml ONCE ONE Administration ORDERS Category Date Time Status CT angio chest PE protocol Stat Cat Scan 08/01/24 22:07 Completed XR chest portable Stat Exams 08/01/24 21:13 Completed Complete Blood Count Auto Diff Stat Lab 08/01/24 20:50 Completed Comprehensive Metabolic Panel Stat Lab 08/01/24 20:50 Completed D-Dimer Stat Lab 08/01/24 20:50 Completed Lipase Stat Lab 08/01/24 20:50 Completed Magnesium Stat Lab 08/01/24 20:50 Completed NT Pro Brain Natriuretic Pep. Stat Lab 08/01/24 20:50 Completed PT INR [Prothrombin Time INR] Stat Lab 08/01/24 20:50 Completed Troponin I Q3H Lab 08/02/24 00:00 Completed Troponin I Q3H Lab 08/02/24 03:15 Ordered Troponin I Stat Lab 08/01/24 20:50 Completed Medical Decision Narrative: 48-year-old female presents to the emergency department with chest pain, shortness of breath, differential diagnosis include but not limited to, ACS, cardiac arrhythmia, electrolyte disturbance, costochondritis, panic attack, anxiety reaction, PE, pneumonia, gastritis, GERD, among others. Will obtain EKG, chest x-ray, CBC CMP, D-dimer lipase magnesium level PT/INR, troponin, proBNP, will give 4 mg IV Zofran, 4 mg IV morphine for pain and nausea. CBC is notable for the cytopenia at 3.9, hemoglobin is decreased 11.8, hematocrit is decreased 36.5 PT/INR within normal limits CMP is unremarkable Initial troponin is less than 0.01. D-dimer is elevated at 1.29 thus obtain CTA chest with without contrast PE protocol for further evaluation/characterization. I discussed patient case with attending physician Dr. Nava at shift change, he will be assuming the patient's care/workup, disposition is pending CTA read and repeat Trop Patient was placed in observation beginning at 9 PM in order to evolving HI with delta troponins and determine need for admission versus home-going. The patient was provided serial exams, cardiac monitoring, CT and delta troponins while awaiting results. Independent interpretation of results demonstrated no acute pulmonary embolus or obvious intrathoracic abnormality on chest CT. Prior to final read and delta troponin, care handed off to oncoming physician Brown: Upon my assumption of care patient is stable and resting comfortably. She is currently asymptomatic. I agree with the assessment and plan from Dr. Nava. CTA PE personally interpreted does not demonstrate acute intrathoracic abnormality, likely limited exam but there does not appear to be a large PE. See radiology read for final interpretation. Patient continues to be on the centrifugal chiller technician while in ED observation and has been frequently reassessed. She remains asymptomatic. Repeat troponin also undetectably low less than 0.01. She is appropriate for discharge at this time and comfortable with this plan. She has a information technology architect at [facility] and I instructed her to call the cardiology office first thing in the morning for close outpatient follow-up. Patient was given instructions on symptomatic management, follow up instructions, and return precautions for the emergency department. Patient indicated understanding and was discharged in stable condition. Critical Care <VAL Israel - Last Filed: 08/01/24 22:34> Critical Care Time Critical Care Time: No
[2024-08-01 21:41] LABS: Basophils % 0.5 % (0.1-2.0); Eosinophils # 0.3 Kmm3 (0.0-0.4); Eosinophils % 3.7 % (0.1-12.0); Hematocrit 36.5 % (37.0-47.0); Hemoglobin 11.8 g/dL (12.2-16.2); Immature Granulocytes # 0.01 10^3uL; Immature Granulocytes % 0.1 %; Lymphocytes # 2.6 K/mm3 (0.7-4.5); Lymphocytes % 35.5 % (10-50); Mean Corpuscular HGB Conc 32.3 g/dL (31.8-35.4); Mean Corpuscular Hemoglobin 30.1 pg (27.0-31.2); Mean Corpuscular Volume 93.1 fl (81-99); Mean Platelet Volume 11.1 fl (7.4-10.4); Monocytes # 0.4 K/mm3 (0.1-1.0); Monocytes % 5.3 % (1.7-9.3); Neutrophils % 54.9 % (37.0-80.0); Nucleated Red Blood Cells # 0 10^3/uL; Nucleated Red Blood Cells % 0 %; Platelet Count 269 K/mm3 (142-424); Red Blood Count 3.92 M/mm3 (4.20-5.40); Red Cell Distribution Width 12.4 % (11.5-17.5); Red Cell Distribution Width-SD 42.4 fL; White Blood Count 7.3 K/mm3 (4.8-10.8)
[2024-08-01 21:42] LABS: Albumin Level 3.7 g/dl (3.5-5.0); Chloride 108 mmol/L (98-107); Sodium 136 mmol/L (136-145)
[2024-08-01 21:43] LABS: Potassium 3.7 mmoL/L (3.5-5.1)
[2024-08-01] MEDS: MORPHINE 4MG/ML SYRINGE 4 MG IV (21:44)
[2024-08-01] MEDS: ONDANSETRON 4MG/2ML VIAL 4 MG IV (21:44)
[2024-08-01 21:45] LABS: Alanine Aminotransferase 14 U/L (12-78); Albumin/Globulin Ratio 1.3 (1.1-1.8); Alkaline Phosphatase 83 U/L (38-126); Anion Gap 7.7 mEq/L (5-15); Aspartate Amino Transferase 33 U/L (14-36); Bilirubin,Total 0.2 mg/dl (0.2-1.3); Blood Urea Nitrogen 11 mg/dl (7-17); Calcium 8.8 mg/dl (8.4-10.2); Carbon Dioxide 24 mmol/L (22.0-30.0); Creatinine Clearance Estimated 128 mL/min (50-200); Estimated Glomerular Filt Rate 77 ml/min (>60); GFR (African American) 93 ML/MIN (>60); Globulin 2.8 g/dL (1.3-3.2); Glucose 108 mg/dl (74-100); Lipase 35 U/L (23-300); Total Protein,Serum 6.5 g/dl (6.3-8.2)
[2024-08-01 21:46] LABS: Magnesium 1.7 mg/dl (1.6-2.3)
[2024-08-01 21:47] LABS: Prothrombin Time 10.1 seconds (10.1-12.5)
[2024-08-01 21:55] LABS: NT Pro Brain Natriuretic Pep. 98.8 pg/mL (0-125)
[2024-08-01 21:58] LABS: Troponin I < 0.01 ng/ml (0.00-0.034)
[2024-08-01 22:02] LABS: D-Dimer 1.29 ug/mL (0.0-0.5)
--- NOTE | 2024-08-01 22:07 | CT_ITS ---
PROCEDURE INFORMATION: Exam: CTA Chest With Contrast Exam date and time: 08/01/2024 10:38 PM Age: 48 years old Clinical indication: Pain and abnormal findings; Abnormal diagnostic tests; Elevated d-dimer; Dyspnea; Left-sided; Additional info: Elevated d-dimer, chest pain, dyspnea recent SX TECHNIQUE: Imaging protocol: Computed tomographic angiography of the chest with contrast. Exam focused on the arteries. 3D rendering (Not supervised by radiologist): MIP and/or 3D reconstructed images were created by the technologist. Radiation optimization: All CT scans at this facility use at least one of these dose optimization techniques: automated exposure control; mA and/or kV adjustment per patient size (includes targeted exams where dose is matched to clinical indication); or iterative reconstruction. Contrast material: ISOUVE 370; Contrast volume: 70 ml; Contrast route: INTRAVENOUS (IV); COMPARISON: CR XR CHEST PORTABLE 08/01/2024 9:21 PM FINDINGS: Tubes, catheters and devices: Electronic device subcutaneous anterior left chest wall Pulmonary arteries: Limitation due to motion artifact without major pulmonary embolism. Aorta: No thoracic aortic aneurysm. Thyroid: Right thyroid ectomy Lungs: Probable atelectatic changes. Pleural spaces: No pneumothorax. No pleural effusion. Heart: No pericardial effusion. Lymph nodes: No lymphadenopathy by size criteria. Gallbladder and biliary ducts: Cholecystectomy Bones/joints: No acute fracture. Soft tissues: Surgical clips bilateral breasts IMPRESSION: Limitation due to motion artifact without major pulmonary embolism.
[2024-08-01] MEDS: SODIUM CHLORIDE 0.9% 10ML SYR (RAD ONLY) 10 ML IV (22:41)
[2024-08-01] MEDS: 0.9 % SODIUM CHLORIDE 50 ML VIAL 40 ML IV (22:41)
[2024-08-01] MEDS: IOPAMIDOL-370 (76%);100ML BOTTLE 70 ML IV (22:41)
[2024-08-02] VITALS: BP 120/75; PULSE 53; RESP 14; O2SAT 97
[2024-08-02 00:30] VITALS: BP 116/80; PULSE 53; RESP 9; O2SAT 97
[2024-08-02 00:43] LABS: Troponin I < 0.01 ng/ml (0.00-0.034)
[2024-08-02 01:01] VITALS: BP 129/88; PULSE 58; RESP 14; O2SAT 98
[2024-08-02 01:12] VITALS: BP 129/88; PULSE 58; RESP 14; TEMP 36.7; O2SAT 98
== END 2024-08-02 01:14 | disposition home or self-care (01) ==
PROVIDERS: Physician Assistant; Emergency Provider Emergency Medicine; PCP Family Medicine
DX: R07.2 Precordial pain (principal)
CPT/HCPCS: 71045; 71275; 80053; 83690; 83735; 83880; 84484; 85025; 85378; 85610; 93005; 96374; 96375; 99285; J2270; J2405; Q9967

== ENCOUNTER 2024-10-10 10:19 | Emergency (ER) | payer MEDICAID, SELFPAY ==
--- OUTSIDE RECORDS SUMMARY | 2024-08-26 11:00 | XMS_ITS | Encounter Summary ---
Author Organization [employer] ([place], [place], [place], [place]) Address [address] [place] [address] Care Team Providers Care Automotive Refinish Technician Name Role Phone Gurjit Mena MD Primary Care Provider [phone] Fausto Nieves MD Unavailable [phone] Reason for Visit * Consultation (Routine) - Authorized Specialty Diagnoses / Procedures Referred By William mata Referred To Contact Physical Therapy Diagnoses Status post left knee replacement Fausto Nieves MD [address] [place] [address] Phone: tel: fax: Referral ID Status Reason Start Date Expiration Date Visits Requested Visits Authorized [id number] Authorized Specialty Services Required 08/26/2024 10/25/2024 6 6 Encounter Details Date Type Department Care Team (Late st Contact Info) Description 08/26/2024 11:00 AM EDT Treatment [facility] OP Physical Therapy [address] [place] [phone] Tejas Richard, PT Status post left knee replacement with [...] a language other than [place]an at [place]? No 06/21/2024 Do you want help with school or training? For example, starting or completing job training or getting a high school diploma, GED or equivalent. No 06/21/2024 Physical Activity Answer Date Recorded Number of minutes of exercise per week 210 06/21/2024 Self Management Answer Date Recorded Because of a physical, [...] you used [place] legal drugs? Never 06/21/2024 Mental Health Answer Date Recorded Calculation of above two rows 0 Comments No Sex and Gender Information Value Date Recorded Sex Assigned at Not on file Legal Sex Female 5:21 PM CDT Gender Identity Not on file Sexual Orientation Not on file documented as of this encounter Progress Notes * Tejas Richard, PT - 08/26/2024 11:00 AM EDT Images from the original note were not included. Outpatient Physical Therapy Progress Note 08/26/2024 Time In: 1100 Time Out: 1156 Ran Ayala 1975 48 y.o. 1. Status post left knee replacement with ANNA Referring Provider: Fausto Nieves MD Insurance: Payor: MEDICAID - MEDICAID [place] CARE / Plan: [employer] MEDICAID / Product Type: *No Product type* / SUBJECTIVE Patient states she is very sore after swimming yesterday. She is ambulating in the clinic with a noticeable limp. Pain: 03/29 Location: L knee Description: Aching Symptoms since onset: Improved OBJECTIVE Test/Measurements Knee ROM (degrees) LEFT Flexion 106 Extension 0 Strength Knee LEFT Flexion 4+/5 Extension 4+/5 Functional Outcome Measure: LEFS: 59/80 INTERVENTIONS Therapeutic Exercise Sets x Repetitions Weight/Resistance Cues/Comments HEP Bike 8 minutes Level 6.0 Fwd step ups 3 x 10 6 inches Shuttle press 3 x 10 7 c / 7 c Standing knee flexion stretch 3 x 10 [x] Incline box stretch 5 x 15 sec [x] Hamstring Stretch 5 x 15 sec [x] LAQs 3 x 10 3 # Heel Raises 3 x [address] machine 2 x 15 ea 40 # TKEs 3 x 10 GTB Hamstring Curls 3 x 10 GTB Staggered squats 2 x 10 Small jump box One pad Drinking Birds 2 x 10 Hip machine Heel Slides 2/2 ASSESSMENT Patient continues to make consistent progress with rehab interventions provided. At this time patient has fully restored knee extension at this time. Patient is also made improvements in knee flexionrange of motion. Patient also demonstrates full knee flexion and extension strength at this time. He is also shown subjective improvements with increased LEFS score. Patient will continue to benefit from management of physical therapist to increase knee flexion range of motion return patient to premorbid status. PLAN Ran Ayala requires skilled physical therapy services to address the below stated problems/goals, using Therapeutic Exercise (42075), Therapeutic Activity (74958), Gait Training (92728), Manual Therapy (31393), Neuromuscular Re- education (61264), and Hot/Cold Packs 1x/Day. Skilled intervention required [...] questions, Pt/CG demonstrated carry-over, and Handouts provided Fpc Goals: Patient will demonstrate 4+/5 L knee flexion and extension strength for improved ability to navigate stairs in 12 weeks. (Goal met) Patient will improve L knee ROM to 0-110 degrees for improved gait mechanics in 12 weeks. (Not Met,Progressing: see objective above) LEFS will improve to 55/80 for significant improvement in subjective LE function for completing ADLs and work duties in 12 weeks. (Goal met) Patient will be independent with discharge home exercise program to improve self-care ADL's, household ADL's, work tasks, and recreational activity. (Not Met, Progressing throughout POC) Plan of Care Certification Date: 06/23/2024 - 09/15/2024 Frequency/Duration: 2x/Week for 12 weeks Electronically signed by: Tejas Richard, PT 08/26/2024, 11:32 AM documented in this encounter Plan of Treatment Upcoming Encounters Date Type Department Care Team (Late st Contact Info) Description 11/23/2024 10:00 AM EDT Office Visit [facility] Orthopedics - [address] [phone] Fausto Nieves MD [address] [place] [phone] documented as of this encounter Visit Diagnoses Diagnosis Status post left knee replacement with ANNA- Primary documented in this encounter Care Teams Automotive Refinish Technician Relationship Specialty Start Date End Date Gurjit Mena MD [address] [place] [facility] [address] [place] [address] PCP - General Family Medicine 06/17/24 Fausto Nieves MD [address] [place] [address] Orthopedic Surgery 06/30/24 documented as of this encounter
--- OUTSIDE RECORDS SUMMARY | 2024-10-08 09:15 | XMS_ITS | Encounter Summary ---
Author Organization [employer] ([place], [place], [place], [place]) Address [address] [place] [address] Care Team Providers Care Third Mate Name Role Phone Gurjit Mena MD Primary Care Provider [phone] Fausto Nieves MD Unavailable [phone] Reason for Visit * Reason Comments Knee Pain Left Encounter Details Date Type Department Care Team (Late st Contact Info) Description 10/08/2024 9:15 AM EDT Office Visit [facility] Orthopedics - [address] [phone] Erimas Obando PA-C [address] [place] [address] S/P total knee arthroplasty, left (Primary [...] your living situation today? I have a [facility] place to live 06/21/2024 Think about [...] Do you speak a language other than Korean at ho me? No 06/21/2024 Do you [...] Office Visit [facility] Orthopedics - [address] [phone] Fausto Nieves MD [address] [place] [address] Pending Results Name Type Priority Associated [...] encounter documented in this encounter Care Teams Third Mate Relationship Specialty Start Date End Date Gurjit Mena MD [address] [place] [address] [place] [address] PCP - General Family Medicine 06/17/24 Fausto Nieves MD [address] [place] [address] Orthopedic Surgery 06/30/24 documented as of this encounter
--- OUTSIDE RECORDS SUMMARY | 2024-10-08 10:00 | XMS_ITS | Encounter Summary ---
Author Organization [employer] ([place], [place], [place], [place]) Address [address] [place] [address] Care Team Providers Care Fruit Farmer Name Role Phone Gurjit Mena MD Primary Care Provider [phone] Fausto Nieves MD Unavailable [phone] Encounter Details Date Type Department Care Team (Late st Contact Info) Description 10/08/2024 10:00 AM EDT Ancillary Procedure [facility] Orthopedics - [address] [phone] Ermias Obando PA-C [address] [place] [address] Arrived Social History Tobacco Use Types Packs/Day Years [...] Do you speak a language other than Slovenian at [facility]? No 06/21/2024 Do [...] Description 11/23/2024 10:00 AM EDT Office Visit [facility] Orthopedics - [address] [phone] Fausto Nieves MD [address] [place] [phone] Pending Results Name Type Priority Associated Diagnoses Date /Time XR knee 1 or 2 views left Imaging Routine S/P total knee arthroplasty, left Left knee pain 10/08/2024 10:01 AM EDT documented as of this encounter Visit Diagnoses Not on filedocumented in this encounter Care Teams Fruit Farmer Relationship Specialty Start Date End Date Gurjit Mena MD [address] [place] [facility] [address] [place] [address] PCP - General Family Medicine 06/17/24 Fausto Nieves MD [address] [place] [address] Orthopedic Surgery 06/30/24 documented as of this encounter
--- OUTSIDE RECORDS SUMMARY | 2024-10-08 20:20 | XMS_ITS | Encounter Summary ---
Author Organization [email or web address] ([place], [place], [place], [place]) Address [address] [place] [address] Care Team Providers Care Java Front End Web Developer Name Role Phone Gurjit Mena MD Primary Care Provider [phone] Fausto Nieves MD Unavailable [phone] Reason for Visit * Reason Comments Leg Pain Swelling to left kne w with pain 10/27. Denies any injury Encounter Details Date Type Department Care Team (Late st Contact Info) Description 10/08/2024 8:20 PM EDT - 10/08/2024 10:35 PM EDT Emergency [facility] Emergency Department [address] [place] [phone] Som Crowe DO [address] [phone] Nausea and vomiting, unspecified vomiting type (Primary [...] Do you speak a language other than [place] at ho [place]? No 06/21/2024 Do you want help with [...] Care Everywhere. * Nausea and Vomiting Adult [id number] (Tamazight) documented in this encounter Medications at Time [...] She denies diarrhea. 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 I performed a substantive portion of the [...] General [address] [facility] [address] Next Steps: Follow up [facility] Emergency Department Specialty: Emergency Medicine [address] [facility] [address] Next Steps: Follow up documented in this encounter Plan of Treatment Upcoming Encounters Date Type Department Care Team (Late st Contact Info) Description 11/23/2024 10:00 AM EDT Office Visit [facility] Orthopedics - [address] [phone] Fausto Nieves MD [address] [place] [phone] documented as of this encounter Procedures [...] ATRIAL RATE (MCT) 48 BPM GE MUSE [place] Interval 198 ms GE MUSE QRS-INTERVAL (MSEC) 100 ms GE MUSE QT Interval 510 ms GE MUSE QTC Interval 455 ms GE MUSE P [place] 60 degrees GE MUSE R AXIS (MCT) 19 degrees GE MUSE T Wave [place] 20 degrees GE MUSE [place] Diagnosis Sinus bradycardia Low voltage QRS Cannot rule out Anterior infarct , age undetermined Abnormal ECG Confirmed by Emigdio CRUZ RICHARD ([id number]) on 10/09/2024 2:47:07 PM GE MUSE 10/08/2024 9:31 PM EDT 10/09/2024 2:47 PM EDT [employer] DO ECG ORDERABLES Final Result Performing Organization Address [facility] de Phone Number GE MUSE * High Sensitivity Troponin I (10/08/2024 8:56 PM EDT) Pathologist [facility] Troponin I High Sensitivity (pg/mL) 15.6 4 - 60.3 pg/mL 10/08/2024 9:26 PM EDT [facility] Comment: Troponin Result (pg/mL) *Interpretation 4-60.3 [...] 8:56 PM EDT 10/08/2024 8:59 PM EDT [email or web address] DO LAB BLOOD ORDERABLES Final Resul t Performing Organization Address City/[facility]/ZIP Co de Phone Number [facility] [address] [place] [address] * Lipase (10/08/2024 8:56 PM EDT) Pathologist [facility] Lipase 16 16 - 77 U/L 10/08/2024 9:26 PM EDT [facility] Blood Venipuncture / Unknown 10/08/2024 8:56 PM EDT 10/08/2024 8:59 PM EDT Koby Ramesh PA-C LAB BLOOD ORDERABLES Fi nal Result [facility] [address] [phone] * (ABNORMAL) Comprehensive metabolic panel (10/08/2024 8:56 PM EDT) Sodium 138 136 - 145 meq/L 10/08/2024 9:26 PM EDT [facility] Potassium 3.6 3.5 - 5.1 meq/L 10/08/2024 9:26 PM EDT [facility] Chloride 103 98 - 107 meq/L 10/08/2024 9:26 PM EDT [facility] CO2 29 21 - 32 meq/L 10/08/2024 9:26 PM EDT [facility] Calcium 8.7 8.5 - 10.1 mg/dL 10/08/2024 9:26 PM EDT [facility] Glucose 84 74 - 100 mg/dL 10/08/2024 9:26 PM EDT [facility] BUN 9 7 - 18 mg/dL 10/08/2024 9:26 PM EDT [facility] Creatinine 0.97 0.55 - 1.10 mg/dL 10/08/2024 9:26 PM EDT [facility] BUN/Creatinine 9 10/08/2024 9:26 PM EDT [facility] Albumin 3.4 3.4 - 5.0 g/dL 10/08/2024 9:26 PM EDT [facility] Alkaline Phosphatase 85 46 - 116 U/L 10/08/2024 9:26 PM EDT [facility] ALT 20 12 - 78 U/L 10/08/2024 9:26 PM EDT [facility] AST 14(L) 15 - 37 U/L 10/08/2024 9:26 PM EDT [facility] Total Bilirubin 0.3 0.2 - 1.0 mg/dL 10/08/2024 9:26 PM EDT [facility] Protein, Total 6.8 6.4 - 8.2 gm/dL 10/08/2024 9:26 PM EDT [facility] Anion Gap 10(L) 11 - 22 10/08/2024 9:26 PM EDT [facility] A/G Ratio 1.0 10/08/2024 9:26 PM EDT [facility] Globulin 3.4 g/dL 10/08/2024 9:26 PM EDT [facility] Osmolality Calc 273.6 mOsm/kg 9:26 PM EDT [facility] eGFR (mL/min/1.73m2) >60 >=60 mL/min/1.7 3m2 10/08/2024 9:26 PM EDT [facility] Comment:ESTIMATED GFR IS NOT ACCURATE CREATININE CLEARANCE IN PREDICTING GLOMERULAR FILTRATION RATE. ESTIMATED GFR IS NOT APPLICABLE FOR DIALYSIS PATIENTS. Blood Venipuncture / Unknown 10/08/2024 8:56 PM EDT 10/08/2024 8:59 PM EDT Koby Ramesh PA-C LAB BLOOD ORDERABLES Fi nal Result [facility] [address] [place] [address] * (ABNORMAL) CBC with Auto Diff (10/08/2024 8:56 PM EDT) WBC 8.3 4.8 - 10.8 K/ L 10/08/2024 9:08 PM EDT [facility] RBC 4.10 3.50 - 5.20 M/ L 10/08/2024 9:08 PM EDT [facility] Hemoglobin 12.8 11.7 - 15.8 GM/DL 10/08/2024 9:08 PM EDT [facility] Hematocrit 37.0 35.0 - 47.0 % 10/08/2024 9:08 PM EDT [facility] MCV 90 81 - 101 fL 10/08/2024 9:08 PM EDT [facility] MCH 31.2 27.0 - 34.0 pg 10/08/2024 9:08 PM EDT [facility] MCHC 34.6 32.0 - 36.0 GM/DL 10/08/2024 9:08 PM EDT [facility] RDW 12.4 11.5 - 14.5 % 10/08/2024 9:08 PM EDT [facility] Platelets 263 150 - 400 K/CU MM 10/08/2024 9:08 PM EDT [facility] MPV 10.3 9.4 - 12.4 fL 10/08/2024 9:08 PM EDT [facility] Nucleated Red Blood Cell 0.0 0 - 0.2 % 10/08/2024 9:08 PM EDT [facility] % Neutros 60 37 - 80 % 10/08/2024 9:08 PM EDT [facility] % Lymphs 32 10 - 50 % 10/08/2024 9:08 PM EDT [facility] % Monos 6 5 - 13 % 10/08/2024 9:08 PM EDT [facility] % Eos 2 0 - 7 % 10/08/2024 9:08 PM EDT [facility] % Baso 1 0 - 3 % 10/08/2024 9:08 PM EDT [facility] NRBC Absolute <0.01 0 - 0.012 K/ul 10/08/2024 9:08 PM EDT [facility] # Neutros 4.98 2.00 - 6.90 K/ L 10/08/2024 9:08 PM EDT [facility] # Lymphs 2.62 0.60 - 3.40 K/ L 10/08/2024 9:08 PM EDT [facility] # Monos 0.48 0.00 - 0.90 K/ L 10/08/2024 9:08 PM EDT [facility] # Eos 0.17 0.00 - 0.70 K/ L 10/08/2024 9:08 PM EDT [facility] # Baso 0.04 0.00 - 0.20 K/ L 10/08/2024 9:08 PM EDT [facility] Immature Granulocytes-Re lative 0.20 % 10/08/2024 9:08 PM EDT [facility] # IG 0.02(H) 0.00 - 0.00 K/uL 10/08/2024 9:08 PM EDT [facility] Blood Venipuncture / Unknown 10/08/2024 8:56 PM EDT 10/08/2024 8:59 PM EDT Narrative [facility] - 10/08/2024 9:08 PM EDT When [...] PA-C LAB BLOOD ORDERABLES Fi nal Result [facility] [address] [place] [address] documented in this encounter Visit Diagnoses Diagnosis [...] Betancourt) documented in this encounter Care Teams Java Front End Web Developer Relationship Specialty Start Date End Date Gurjit Mena MD [address] [facility] [address] PCP - General Family Medicine 06/17/24 Fausto Nieves MD [address] [place] [address] Orthopedic Surgery 06/30/24 documented as of this encounter
[2024-10-10] VITALS (12 sets, daily range): BP systolic 104–129; BP diastolic 66–79; PULSE 48–66; RESP 11–22; TEMP 36.9–37.1; O2SAT 93–98; BMI 38.0
--- NOTE | 2024-10-10 10:25 | HMH.EDGENADL ---
Discharge Plan Disposition Patient Disposition: Home, Self-Care Condition: Good Prescriptions Prescriptions: New rivaroxaban 15 mg (42)- 20 mg (9) tablets,dose pack See Rx Instructions .ROUTE .COMPLEX Qty: 51 0RF Rx Instructions: take one-15 mg tablet twice daily for 21 days, then one-20 mg tablet once daily; must take with meal/food No Action escitalopram oxalate 20 mg tablet 20 mg PO DAILY Patient Comments: TAKE 1 TABLET BY MOUTH ONCE DAILY buspirone 10 mg tablet 10 mg PO NEEDED PRN (Reason: Anxiety) Patient Comments: TAKE 1 TABLET BY MOUTH THREE TIMES DAILY hydrocortisone [Proctosol HC] 2.5 % cream with perineal applicator 1 applic OH QD-BID PRN (Reason: hemorrhoids) Qty: 30 0RF albuterol sulfate [Ventolin HFA] 90 mcg/actuation HFA aerosol inhaler 90 mcg inhalation NEEDED PRN (Reason: SOA) Patient Comments: INHALE 2 PUFFS BY MOUTH EVERY 4 TO 6 HOURS NEEDED FOR SHORTNESS OF BREATH FOR WHEEZING dicyclomine 20 mg tablet 20 mg PO QID Patient Comments: TAKE 1 TABLET BY MOUTH 4 TIMES DAILY FOR 8 DAYS ondansetron 4 mg tablet,disintegrating 4 mg PO Q4H PRN Patient Comments: DISSOLVE 1 TABLET IN MOUTH EVERY 4 HOURS NEEDED FOR NAUSEA AND VOMITING UP TO FOR 7 DAYS naproxen 500 mg tablet 500 mg PO BID Patient Comments: TAKE 1 TABLET BY MOUTH TWICE DAILY WITH BREAKFAST AND WITH SUPPER FOR 5 DAYS trazodone 100 mg tablet 100 mg PO HS Patient Comments: TAKE 2 TABLETS BY MOUTH NIGHTLY NEEDED FOR SLEEP levocetirizine [Xyzal] 5 mg tablet 5 mg PO DAILY Qty: 30 2RF estradiol 1 mg tablet See Rx Instructions .ROUTE .COMPLEX Qty: 30 12RF Dose Instruction: Take 1 tablet by mouth once daily Rx Instructions: Take 1 tablet by mouth once daily Referrals Follow up/Referrals: Gurjit Mena MD [Primary Care Provider, Internal Medicine] - See instructions Activity Restrictions/Add. Instructions Additional Instructions/Restrictions: You will receive a phone call to schedule your ultrasound of your left lower extremity based off of concern of DVT in the emergency department. Return to the emergency department for new or worsening symptoms including chest pain or trouble breathing. Take Xarelto as instructed. Stop taking your estradiol. Follow-up with your primary care provider soon as possible. Clinical Impressions Clinical Impression: Deep vein thrombosis (DVT) of femoral vein of left lower extremity Print Language Print Language: Cambodian Discharge ED Provider: Judith Cantor General Adult HPI General Chief complaint: Chest Pain Stated complaint: left leg is swollen,chest pain that comes and goes Time Seen by Provider: 10/10/24 10:25 History of Present Illness HPI narrative: Patient is a 48-year-old with past medical history significant for daily estradiol use, history of [place], depression presents to the emergency department with chest pain and shortness of breath. Patient has had 2 weeks of left lower extremity swelling and pain and overnight developed chest pain with shortness of breath worse when lying flat and taking a deep breath. Pain is 7 out of 10. Related Data Home Medications ?Medication ?Instructions ?Recorded ?Confirmed trazodone 100 mg tablet 100 mg PO HS 09/04/23 08/04/24 buspirone 10 mg tablet 10 mg PO NEEDED PRN Anxiety 05/25/24 08/04/24 escitalopram oxalate 20 mg tablet 20 mg PO DAILY 05/25/24 08/04/24 albuterol sulfate 90 mcg/actuation 90 mcg inhalation NEEDED PRN SOA 06/10/24 08/04/24 aerosol inhaler (Ventolin HFA) dicyclomine 20 mg tablet 20 mg PO QID 07/21/24 08/04/24 naproxen 500 mg tablet 500 mg PO BID 07/21/24 08/04/24 ondansetron 4 mg disintegrating 4 mg PO Q4H PRN 07/21/24 08/04/24 tablet Previous Rx's ?Medication ?Instructions ?Recorded levocetirizine 5 mg tablet (Xyzal) 5 mg PO DAILY #30 tabs 12/10/23 hydrocortisone 2.5 % topical cream 1 applic OH QD-BID PRN hemorrhoids 05/25/24 with perineal applicator #30 grams (Proctosol HC) estradiol 1 mg tablet See Rx Instructions .Route 08/03/24 .COMPLEX #30 tabs rivaroxaban 15 mg (42)-20 mg (9) See Rx Instructions PO .COMPLEX 10/10/24 tablets in a starter pack #51 tabs Allergies Allergy/AdvReac Type Severity Reaction Status Date / Time adhesive tape Allergy Mild Rash Verified 08/04/24 10:03 [facility] Disclaimer: The information contained in this section may have been updated after the patient was seen, as this information can be updated by other users. Medical History (Updated 10/10/24 @ 14:23 by Judith Cantor MD) Left knee DJD Abnormal cardiovascular stress test Atypical angina Preop testing Sleep apnea Thyroid Nodule Hearing loss in right ear Loose left total knee arthroplasty Chronic sinusitis H/O Eustachian tube dysfunction Hearing difficulty of right ear Dyspnea on exertion FARHEEN (obstructive sleep apnea) Meningioma Seizures Ovarian cyst Breast cancer Hx of thyroid cancer Implantable loop recorder present Tachycardia History of hypertension PTSD (post-traumatic stress disorder) Anxiety Depression Surgical History History of partial thyroidectomy History of loop recorder H/O: knee surgery History of carpal tunnel repair History of cholecystectomy History of abdominal hysterectomy Family History Other Anemia Asthma Cancer Coronary artery disease Diabetes FHx: mental illness Heart attack Hyperlipidemia Hypertension Thyroid disorder Social History Smoking Status: Former smoker tobacco type: cigarettes packs per day: 0 alcohol intake: current alcohol intake frequency: holidays/special occasions only counseling provided: none substance use type: denies use current occupational status: unemployed Travel in the last 8 weeks?: None household members: none housing: house marital status: single number of children: 3 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 current occupational exposures/hazards: No caffeine: No Have you lived/traveled outside US in past 30 days?: No Contact w/someone who lives/traveled outside US past 30 days?: No Exposure to someone with infectious disease in past 14 days?: No Do you have a fever (greater than 100.4 F or 38 C)?: No Have you tested positive for COVID-19?: No Exposed to someone with COVID-19 in past 14 days?: No Do you have a sore throat?: No Do you have a cough?: No Do you have any weakness?: No Do you have any diarrhea?: No Are you experiencing any unusual bleeding?: No Do you have any muscle aches/pain?: No Do you have any abdominal pain?: No Are you experiencing loss of taste or smell?: No Other Medical History Have you received the Flu Vaccine for this season: No Have you received the Pneumonia Vaccine: No ROS Obtained: Yes All systems reviewed & no additional complaints except as documented Physical Exam General General appearance: alert, in no apparent distress and obese Respiratory Respiratory exam: Present normal lung sounds bilaterally; Absent respiratory distress or accessory muscle use Cardiovascular Cardiovascular exam: Present normal rhythm and bradycardia Abdominal Exam Abdominal exam: Present soft; Absent distention or tenderness Extremities Exam Extremities exam: Present other (+ homans sign, LLE edema>right, 2 + edema LLE) Back Exam Back exam: Present normal inspection; Absent tenderness Neurological Exam Neurological exam: Present alert and oriented X3 Skin Skin exam: Present warm and dry Lymphatic Lymphatic Findings: L inguinal node tender Medical Decision Making Medical Records Screening: Per USPSTF and CDC recommendations, given the prevalence of disease in our region, it is our hospital?s policy to screen for HIV and viral Hepatitis for all patients aged 18 and over and those with ongoing risk factors. [place] Inquiry Pt receiving controlled substance: No Vital Signs: 10/10/24 10:29 10/10/24 10:31 10/10/24 10:45 Temperature 98.4 F Temperature Source Oral Pulse Rate 58 L 54 L Pulse Rate [Left] 57 L Respiratory Rate 19 16 12 Blood Pressure 104/79 L Blood Pressure [Right Arm] 107/76 L Blood Pressure Mean 88 Blood Pressure Mean [Right Arm] 86 Blood Pressure Source [Right Arm] Automatic Cuff Blood Pressure Position [Right Arm] Sitting 02 Sat by Pulse Oximetry 95 95 95 Oxygen Delivery Method Room Air Room Air Room Air 10/10/24 11:00 10/10/24 11:15 10/10/24 12:00 Temperature Temperature Source Pulse Rate 50 L 48 L 50 L Pulse Rate [Left] Respiratory Rate 13 15 14 Blood Pressure 129/75 Blood Pressure [Right Arm] Blood Pressure Mean Blood Pressure Mean [Right Arm] Blood Pressure Source [Right Arm] Blood Pressure Position [Right Arm] 02 Sat by Pulse Oximetry 97 93 L 96 Oxygen Delivery Method Room Air Room Air 10/10/24 12:30 10/10/24 13:00 10/10/24 13:30 Temperature Temperature Source Pulse Rate 50 L 51 L 61 Pulse Rate [Left] Respiratory Rate 11 L 15 17 Blood Pressure 120/79 123/75 109/66 L Blood Pressure [Right Arm] Blood Pressure Mean Blood Pressure Mean [Right Arm] Blood Pressure Source [Right Arm] Blood Pressure Position [Right Arm] 02 Sat by Pulse Oximetry 97 96 98 Oxygen Delivery Method 10/10/24 14:00 10/10/24 14:15 10/10/24 14:38 Temperature 98.7 F Temperature Source Pulse Rate 66 58 L 58 L Pulse Rate [Left] Respiratory Rate 22 16 19 Blood Pressure 115/71 128/79 Blood Pressure [Right Arm] Blood Pressure Mean Blood Pressure Mean [Right Arm] Blood Pressure Source [Right Arm] Blood Pressure Position [Right Arm] 02 Sat by Pulse Oximetry 96 98 Oxygen Delivery Method Room Air Room Air Lab Data Lab Results 10/10/24 10:46: WBC 6.2, RBC 3.96 L, Hgb 12.3, Hct 36.6 L, MCV 92.4, MCH 31.1, MCHC 33.6, RDW 12.5, Plt Count 248, MPV 10.4, Neut % (Auto) 59.1, Lymph % (Auto) 31.0, Faulkner % (Auto) 6.4, Eos % (Auto) 2.6, Baso % (Auto) 0.6, Neut # (Auto) 3.7, Lymph # (Auto) 1.9, Faulkner # (Auto) 0.4, Eos # (Auto) 0.2, Baso # (Auto) 0.0, PT 10.4, INR 0.93, Sodium 139, Potassium 4.0, Chloride 109 H, Carbon Dioxide 25, Anion Gap 9.0, BUN 10, Creatinine 0.90, Estimated Creat Clear 119, Estimated GFR 67, Est GFR ( Amer) 81, Glucose 98, Calcium 8.9, Total Bilirubin 0.3, AST 24, ALT 14, Alkaline Phosphatase 77, Troponin I < 0.01, NT-Pro-B Natriuret Pep 292 H, Total Protein 6.6, Albumin 3.9, Globulin 2.7, Albumin/Globulin Ratio 1.4 10/10/24 13:30: Troponin I < 0.01 10/10/24 10:46 10/10/24 10:46 Orders (Tests/Meds): ED MEDICATIONS Discontinued Medications Generic Name Dose Route Start Last Admin Trade Name Freq PRN Reason Stop Dose Admin Iopamidol 80 ml 10/10/24 11:36 10/10/24 11:37 Iopamidol-370 (76%);100ml Bottle IV 10/10/24 11:37 80 ml ONCE ONE Administration Morphine Sulfate 4 mg 10/10/24 10:43 10/10/24 10:50 Morphine 4mg/Ml Syringe IV 10/10/24 10:44 4 mg ONCE ONE Administration Rivaroxaban 15 mg 10/10/24 12:46 10/10/24 12:57 Rivaroxaban 15mg Tablet PO 10/10/24 12:47 15 mg ONCE ONE Administration Rivaroxaban 1 packet 10/10/24 14:18 10/10/24 14:23 Xarelto 15mg Thp 1 Packet Bertram PO 10/10/24 14:19 1 packet ONCE ONE Administration Sodium Chloride 50 ml 10/10/24 11:36 10/10/24 11:37 0.9 % Sodium Chloride 50 Ml Vial IV 10/10/24 11:37 50 ml ONCE ONE Administration Sodium Chloride 10 ml 10/10/24 11:36 10/10/24 11:37 Sodium Chloride 0.9% 10ml Syr (Rad Only) IV 11/09/24 11:35 10 ml NEEDED PRN Administration Maintain IV Site ORDERS Category Date Time Status CTA Chest [CT angio chest PE protocol] Stat Cat Scan 10/10/24 10:43 Completed CXR --portable [XR chest portable] Stat Exams 10/10/24 10:43 Completed POCUS Point of Care (ER Only) Stat Exams 10/10/24 10:26 Completed Complete Blood Count Auto Diff Stat Lab 10/10/24 10:46 Completed Comprehensive Metabolic Panel Stat Lab 10/10/24 10:46 Completed NT Pro Brain Natriuretic Pep. Stat Lab 10/10/24 10:46 Completed Prothrombin Time INR Stat Lab 10/10/24 10:46 Completed Troponin I Q3H Lab 10/10/24 13:30 Completed Troponin I Stat Lab 10/10/24 10:46 Completed HEART Score History (anamnesis): Slightly suspicious ECG: Normal Age: 45-65 years Risk factors: 1-2 risk factors Troponin: </= normal limit HEART Score: 2 Medical Decision Narrative: In summary, this 48-year-old female presents to the emergency department today with chest pain shortness of breath left lower extremity swelling. On initial evaluation patient is hemodynamically stable saturating appropriately on room air afebrile no acute distress. Differential diagnosis includes but is not limited to ACS PE pneumonia atelectasis DVT cellulitis lymphedema heart failure. Based on these concerns, I ordered CBC CMP lactate troponin EKG BNP CT PE. ECG personally interpreted demonstrates sinus bradycardia T wave inversions in lead V1 V3 and III Patient received morphine for treatment. Labs personally reviewed demonstrate mildly elevated BNP, normal troponins. XR personally interpreted demonstrates no focal consolidation no pneumothorax no effusion no interstitial edema CT imaging personally interpreted demonstrate right pulmonary nodule for which I recommended following up with her primary care provider for serial imaging, no PE or aortic dissection. Yjrmd-mr-ntly ultrasound with a noncompressible left femoral vein concerning for DVT. Unable to obtain formal venous duplex today in the emergency department. Patient started on Xarelto in the emergency department with instructions to follow-up for outpatient formal DVT ultrasound. On reassessment patient has improvement of symptoms and agreeable to discharge with strict return precautions and following up with her primary care provider. I recommended stopping estradiol as this is likely the culprit of patient's left lower extremity provoked DVT. Procedures Limited Ultrasound Indication:: leg swelling Views:: Limited DVT ultrasound Indication: Limited compression ultrasonography of the left lower extremity was performed to evaluate for non-compressibility of the deep veins in the patient. The ultrasound was performed with the following indications, as noted in the H&P: Left leg pain and swelling Chest pain Identified structures: Left common femoral vein, femoral vein, popliteal vein were examined. Findings: Left CFV: Non-compressible Left saphenous vein Good compressibility Left Popliteal vein: Good compressibility Impression: Left DVT Images saved to permanent archive The study was technically adequate CPT: 20237-80-RU [id number] (complete bilateral study) This study was performed by me, and I personally interpreted all images/videos. Based on my clinical judgement, these images were [adequate/inadequate] and [did/did not] necessitate further imaging. Critical Care Critical Care Time Critical Care Time: No
--- NOTE | 2024-10-10 10:26 | ECG_ITS ---
APPROVED REPORT Exam: Resting ECG HR:54 bpm ECG Measurements Heart Rate 54 AXES CA 183 P 46 QRSd 107 QRS 8 QT 468 T 0 QTc 453 Conclusion SINUS BRADYCARDIA LOW QRS VOLTAGE IN PRECORDIAL LEADS [QRS DEFLECTION < 1.0 mV IN CHEST LEADS] INCOMPLETE RIGHT BUNDLE BRANCH BLOCK [90+ ms QRS DURATION, TERMINAL R IN V1/V2, 40+ ms S IN I/aVL/V4/V5/V6] POSSIBLE LATERAL MYOCARDIAL INFARCTION , PROBABLY OLD [30 ms Q WAVE IN I/aVL/V5/V6] BORDERLINE ECG UNCONFIRMED REPORT Electronically signed by : ANTONIA NOVAK, 10/11/2024 23:19:45
--- OUTSIDE RECORDS SUMMARY | 2024-10-10 10:26 | XMS_ITS | Encounter Summary ---
Author Organization [employer] ([place], [place], [place], [place]) Address [address] [place] [address] Care Team Providers Care Web Manager Name Role Phone Marlo Leonardo Primary Care Provider [phone] Gurjit Mena MD Primary Care Provider [phone] Fausto Nieves MD Unavailable [phone] Reason for Referral * Consultation (Routine) - Closed Specialty Diagnoses / Procedures Referred By William mata Referred To Contact Neurology Diagnoses Syncope and collapse Colette Gallardo [address] [place] [address] Phone: tel: Krupa Ward MD [address] [place] [address] Phone: tel: fax: Referral ID Status Reason Start Date Expiration Date V isits Requested Visits Authorized [id number] Closed Specialty Services Required 12/19/2023 12/18/2024 1 1 Encounter Details Date Type Department Care Team (Late st Contact Info) Description 12/19/2023 Outside Orders [facility] Neurology [address] [place] [address] Colette Gallardo [place] [address] Syncope and collapse (Primary Dx) Social History Tobacco Use Types Packs/Day Years Used Date Smoking Tobacco: Never Smokeless Tobacco: Never Alcohol Use Standard Drinks/Week Comments Never 0 (1 standard drink = 0.6 oz pur e alcohol) Family and Community Support Answer Pipe e Recorded Help with Day to Day Activities Not on file 03/01/2023 Feeling Lonely or Isolated Not on file 03/01 Educational Attainment Answer Date Darrian rded Speak language other than Pashto at home Not on file 03/01/2023 Want help with school or training Not on file 03/01/2023 Substance Use Answer Date Recorded Used [...] Description 11/23/2024 10:00 AM EDT Office Visit [facility] Orthopedics - [address] [address] Fausto Nieves MD [address] [place] [id number] Scheduled Referrals Name Type Priority Associated Diagnoses Order Schedule Ambulatory referral to Neurology Outpatient Referral Routine Syncope and collapse Ordered: 12/19/2023 documented as of this encounter Visit Diagnoses Diagnosis Syncope and collapse- Primary documented in this encounter Care Teams Web Manager Relationship Specialty Start Date End Date endyMarlo mireles [address] [place] [address] PCP - General 12/20/22 06/16/24 Gurjit Mena MD [address] [place] [address] [place] [address] PCP - General Family Medicine 06/17/24 Fausto Nieves MD [address] [place] [address] Orthopedic Surgery 06/30/24 documented as of this encounter
--- OUTSIDE RECORDS SUMMARY | 2024-10-10 10:26 | XMS_ITS | Clinical Summary ---
Author Organization [facility] Address [address] [place] [address] Phone Care Team Providers Care Bobbin Presser Name Role Phone Mandeep Beckham DO Primary Care Provider [phone] Allergies Active Allergy Reactions Criticality Noted Date [...] 1 Tab by mouth daily. 2 12/23/19 Active albuterol (PROAIR HFA) 90 mcg/actuation Inhl HFA Aerosol Inhaler Inhale 2 Puffs into the lungs every 6 hours as needed for Wheezing. 1 Each 2 09/11/19 Active fluticasone furoate-vilanteroL (BREO ELLIPTA) 200-25 mcg/dose Inhl Disk with DeviceIndications: Dyspnea on exertion Inhale 1 Puff into the lungs daily. 1 Each 6 10/09/19 Active Cholecalciferol, Vitamin D3, 125 mcg (5,000 unit) Oral Tablet Take 1 Capsule by mouth daily. Active omeprazole (PRILOSEC) 40 mg Oral Capsule, Delayed Release(E.C.) Take by mouth daily. Active ipratropium (ATROVENT) 21 mcg (0.03 %) Nasl Clarence, Non-AerosolIndicat ions:Subacute cough 2 Sprays by Nasal [...] daily. 30 Tablet 2 09/26/19 24 Active ibuprofen (ADVIL;MOTRIN) 600 mg Oral Tablet Take 1 Tablet by mouth every 8 hours as needed for Pain for up to 30 days. 30 Tablet 08/30/19 25 025 acetaminophen 325 mg Oral Tab Take 2 Tablets by mouth every 6 hours as needed for Pain or Fever for up to 30 days. 30 Tablet 08/30/19 25 025 Active Problems Patient Care Coordination No te Formatting of this note migh t be different from the original. [place] ENTAS Controlled report completed 07/05/2022 Informed consent signed 07/05/[id number] Whitaker Controlled Medication Agreement signed 03/11/22 [...] (03/06/2022): Added automatically from request for surgery [id number] Screening for colon cancer 03/06/2022 0 07/03/2022 Overview (05/20/2022): Added automatically from request for surgery [id number] Chondromalacia of left patella 11/24/2020 02/22/2021 Overview (11/24/2020): Added automatically from request for surgery [id number] Patellar tracking disorder of left knee 11/10/2020 02/22/2021 Chondromalacia of right patella 08/10/2020 02/22/2021 Overview (08/10/2020): Added automatically from request for surgery [id number] Swelling of right knee joint 08/10/2020 02/22/2021 Overview (08/10/2020): Added automatically from request for surgery [id number] Patella, chondromalacia, right 08/09/2020 02/22/2021 Effusion of right knee 08/09/202002/22 Maltracking of right patella 08/09/2020 03/28/2022 Class 3 severe obesity witho ut serious comorbidity in adult 04/27/2020 03/28/2022 Chest pain 12/01/2019 06/04/2021 Psoriasis 09/24/2018 03/28/2022 Chronic abdominal pain 12/04/201703/28 History of [place] (myocardial infarction) 12/01/2019 Nausea and vomiting 07/04/19 23 Encounters Date Type Department Care Team Description 08/29/2024 7:35 PM EDT - 08/29/2024 9:29 PM EDT Emergency [facility] [address] [place] [address] Roc Darden MD Fall, initial encounter (Primary Dx); Acute pain of left knee Discharge Disposition: Home or Self Care from Last 3 Months Immunizations Immunization Administration Dates Next Due Hepatitis B (Recombinant), Adjuvanted 05/13/2022 ,04/15/2022 Influenza Vaccine Quadrivalent PF 02/22/2021, Moderna SARS-CoV-2 Vaccine 12+ Yrs (Light blue b order) 07/05/2020,05/30/2020 Tdap 04/26/2019 Surgical History Surgery Date Site/Laterality Comments SECTION 1999,1998, 1996 CHOLECYSTECTOMY 02/17/2014 - 02/16/2015 HYSTERECTOMY, TOTAL 07/18/2016 - 08/16/2016 ABDOMINAL ADHESION SURGERY 10/09/2017 UPPER GASTROINTESTINAL ENDOSCOPY 03/16/2020 N/A ESOPHAGOGASTRODUODENOSCOP Y with biopsy; Surgeon: Fidencio Dalton MD; Location: [facility]; Service: Endoscopy KNEE ARTHROSCOPY 08/29/2020 Right Right knee arthroscopic lateral release and arthroscopic chondroplasty patella; Surgeon: Isaias Dumont MD; Location: [facility] MAIN OR; Service: Orthopedics KNEE SURGERY Right KNEE ARTHROSCOPY 12/21/2020 Left LEFT KNEE ARTHROSCOPIC CHONDROPLASTY, ARTHROSCOPIC LATERAL RETINACULAR LENGTHENING; Surgeon: Isaias Dumont MD; Location: [facility]; Service: Orthopedics ULNAR TUNNEL RELEASE 08/29/2021 Arm/Elbow/Right Right Cubital Tunnel Release; Surgeon: Ozzy Concepcion MD; Location: [facility]; Service: Orthopedics CARPAL TUNNEL RELEASE 09/19/2021 Hand/Wrist/Left Left Cubital Tunnel Release and left carpal tunnel release; Surgeon: Ozzy Concepcion MD; Location: [facility]; Service: Orthopedics THYROIDECTOMY 07/12/2022 Right Right Jason Thyroidectomy; Surgeon: Alessandro Faith MD; Location: [facility] MAIN OR; Service: ENT ULNAR TUNNEL RELEASE 12/12/2022 Arm/Elbow/Left Left cubital tunnel release revision and transposition; Surgeon: Ramses Puentes MD; Location: [facility] OR; Service: Orthopedics ULNAR TUNNEL RELEASE 12/12/2022 Arm/Elbow Surgeon: Ramses Puentes MD; Location: [facility] OR; Service: Orthopedics ULNAR TUNNEL RELEASE 01/14/2023 Arm/Elbow/Right Right Cubital Tunnel Release with transposition; Surgeon: Ramses Puentes MD; Location: [facility]; Service: Orthopedics COLONOSCOPY KNEE ARTHROSCOPY 08/04/2023 Knee/Left LEFT KNEE ARTHROSCOPY partial lateral meniscus repair, medial meniscus root repair; Surgeon: Cesar Ellis MD; Location: [facility] OR; Service: Orthopedics Medical devices from [...] g 4-8 Asthma Cardiac dysrhythmia tachycardia Meningioma ([facility]) 2023 Gastroparesis Esophageal dysphagia Family History Medical [...] Never 08/15/2022 How often do you attend [facility] or tenriism services? Never 08/15/2022 Do you belong to any clubs o r organizations such as synagogue groups, unions, fraternal or athletic groups, or [...] 08/17/2022 [facility] - Occupational Stress Questionnaire Answer Date Recorded [...] place to sleep or slept in a jail (including now)? 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 Not on file Not on file [...] Mass Index 38.26 08/29/2024 7:36 PM EDT Plan of Treatment Health Maintenance Due Date Last Done Comments Cologuard 2021 FIT 2021 Sigmoidoscopy 2021 Virtual Colonography 2021 Annual Wellness Exam 04/15/2023 04/15/2022, 12/30/19 20 COVID-19 Vaccine ( season) 2023 07/05/2020, 05/30/2020 Breast Cancer Screening 03/31/2024 03/31/19 24, 02/18/2022, 01/08/2021, Additional history exists Influenza Vaccine (#1) 2024 2, 02/22/2021, 11/09/2019 Colon Cancer Screening 06/19/2027 Colonoscopy [...] 140/90 Blood Pressure 116/88(2024 8:11 PM EDT) No Aida Marie LPN Maintain a healthy diet, exercise regularly and maintain an ideal body weight General No Cheryl Kumar RMA Stay Tobacco Free Lifestyle No [facility] Implanted Type Area Assistant Project Manager Device Identifier Shelf Expiration Date Model / Serial / Lot Loop Recorder-12/02 Implanted:11/17 (Quantity not on file) Left: Chest Button Sut 4mm Endbttn 20mm Lf F/Acl/Pcl Recon - [id number] Implanted:Qty: 1 on 08/04/2023 by Cesar Ellis MD at [facility] Left: Knee [employer]:ENDO 10/03/2027 [id number] / / [id number] Procedures Procedure Name Priority Date/Time Associated Diagnosis Comments XR KNEE LEFT AP LATERAL INTERNAL AND EXTERNAL OBLIQUES NATHEN 08/29/2024 8:43 PM EDT MM MAMMO DIGITAL FAITH SCREEN BILAT Routine 03/31/2023 2:50 PM EST Encounter for screening mammogram for malignant neoplasm of breast COLONOSCOPY Routine 06/20/2022 9:48 AM EDT Screening for colon cancer Erosive gastritis from Last 3 Months or Most Recently Relevant to Health Maintenance Results * XR KNEE LEFT AP LATERAL [...] IMG DIAGNOSTIC IMAGIN G ORDERABLES Final Result * MM MAMMO DIGITAL FAITH SCREEN BILAT (03/31/2023 2:50 PM EST) Anatomical Region Laterality Modality Breast Bilateral Mammography 03/31/2023 3:16 PM EST Impressions 03/31/2023 3:16 PM EST Negative ([id number]) ~ RECOMMENDATION: Routine screening mammogram in 1 [...] the next mammogram, in accordance with the [place] [employer] and the Society of Breast Imaging recommendations. Narrative 03/31/2023 3:16 PM EST Procedure:MM MAMMO DIGITAL FAITH SCREEN BILAT ~ Reason for exam: screening, asymptomatic. Z12.31-Encounter for screening mammogram for malignant neoplasm of [id number]-CM ~ MM MAMMO DIGITAL FAITH SCREEN BILAT [...] for screening mammogram for malignant neoplasm of [id number]-[id number]-CM ~ MM MAMMO DIGITAL FAITH SCREEN BILAT Bilateral CC and MLO view(s) were taken. Technologist: Nico Delgadillo, RT(R)(M) The breast tissue is heterogeneously dense. This may lower thesensitivity of mammography. Prior study comparison: Compared with prior studies the most recentbeing 02/18/22, 01/08/21 No mammographic evidence of malignancy. ~ IMPRESSION: Negative ([id number]) ~ RECOMMENDATION: Routine screening mammogram in 1 [...] the next mammogram, in accordance with the [place] [employer] and the Society of Breast Imaging recommendations. Mandeep Beckham DO IMG MAMMOGRAPHY ORDERABLES Nicol leon Result * COLONOSCOPY (06/20/2022 9:48 AM EDT) Anatomical Region Laterality Modality Endoscopy Narrative 06/20/2022 9:58 AM EDT Table formatting from the original result was not included. Findings External medium hemorrhoids Recommendation Repeat colonoscopy in 5 years Family history of colon cancer Indication Screening for colon cancer Staff Staff Role Latasha Bauer RN Head Stock Operator Eric Salazar MD Anesthesiologist Fidencio Taylor MD [...] of bowel preparation was evaluated using the [place] Bowel Preparation Scale with scores of: right [...] Most Recently Relevant to Health Maintenance Insurance [employer] [facility] [id number] [id number] Care Teams Bobbin Presser Relationship Specialty Start Date End Date Mandeep Beckham DO [address] [place] [address] PCP - General Family Medicine 01/28/23
--- OUTSIDE RECORDS SUMMARY | 2024-10-10 10:26 | XMS_ITS | Clinical Summary ---
Author Organization [employer] [facility] Address [address] [place] [address] Phone Care Team Providers Care Coiler Name Role Phone Unavailable Unavailable Conditions or Problems No information available. Medications No information available. Medications Administered No information available. Allergies, Adverse Reactions, Alerts No information available. Results No information available. Plan of Care No information available. Procedures No information available. Vital Signs No information available. Immunizations No information available. Advance Directives No information available.
--- OUTSIDE RECORDS SUMMARY | 2024-10-10 10:27 | XMS_ITS | Encounter Summary ---
Author Organization [employer] ([place], [place], [place], [place]) Address [address] [place] [address] Care Team Providers Care Research Analyst Name Role Phone Marlo Leonardo Primary Care Provider [phone] Gurjit Mena MD Primary Care Provider [phone] Fausto Nieves MD Unavailable [phone] Reason for Referral * Consultation (Routine) - Closed Specialty Diagnoses / Procedures Referred By William mata Referred To Contact Physical Therapy Diagnoses Other tear of medial meniscus of left knee as current injury, subsequent encounter Cesar Ellis MD [address] [id number] Phone: tel: fax: Referral ID Status Reason Start Date Expiration Date V isits Requested Visits Authorized [id number] Closed Specialty Services Required 08/19/2023 02/17/2024 20 20 Encounter Details Date Type Department Care Team (Late st Contact Info) Description 08/19/2023 Outside Orders [facility] Physical Therapy [address] [place] [id number] Cesar Ellis MD [address] [place] [address] Other tear of medial meniscus of left [...] your living situation today? [facility] 06/21/2024 Think [...] a language other than [place] at [place]? No 06/21/2024 Do you [...] Description 11/23/2024 10:00 AM EDT Office Visit [facility] Orthopedics - [address] [address] Fausto Nieves MD [address] [place] [phone] Scheduled Referrals Name Type Priority Associated Diagnoses [...] Primary documented in this encounter Care Teams Research Analyst Relationship Specialty Start Date End Date Marlo Leonardo [address] [place] [address] PCP - General 12/20/22 06/16/24 Gurjit Mena MD [address] [place] [address] BEDS AT [facility] [address] [address] PCP - General Family Medicine 06/17/24 Fausto Nieves MD [address] [place] [address] Orthopedic Surgery 06/30/24 documented as of this encounter
--- OUTSIDE RECORDS SUMMARY | 2024-10-10 10:28 | XMS_ITS | Clinical Summary ---
Author Organization [facility] Address [address] [place] [address] Care Team Providers Care Sports Photographer Name Role Phone Ha Harrison MD Unavailable [...] therelease of HIV test results or diagnoses. [id number] Allergies Active Allergy Reactions Criticality Noted [...] hospital located near her daughter's home in [facility] ([facility]). This nurse called them at [phone] Brain done on 04/08/2023is being pushed through PACS. Patient then visited [facility] and had an MRI on 05/14. Patient also had a MRI at [facility] today. Requested this scan to be pushed through PACS., and report emailed to Dr. Harrison. Cristina Andrew has information on these 2 scans in [employer],and will merge these scans to MR#. Patient [...] 1976 Diabetes Screening 1976 Hepatitis C Screening (MyChart) 1976 Alcohol Misuse Screening 1994 HIV Screening 1994 Immunization: Zoster (1 of 2) 10/30/1995 Cervical Cancer Screening/Pa p Smear (MyChart) 2006 Mammogram (MyChart) 2016 Immunization: COVID-19 (3 - Moderna risk series) 08/02/2020 07/05/2020, 05/30/2020 Cologuard (FIT-DNA) 2021 Colonoscopy 2021 Colorectal Cancer Screening (MyChart) 2021 Stool Testing (gFOBT) 2021 Depression Screening 06/22/2024 06/23/2023, 06/16/2023 Immunization: Influenza (MyChart) (#1) 2024 02/22/2021, 11/09/2019 Immunization: DTaP/Tdap/Td ( 2 - Td or Tdap) 04/25/2029 04/26/2019 Immunization: Hepatitis B Completed 2022, 04/15/2022 Immunization: HPV Aged Out No longer eligible based on patient's age to complete this topic Immunization: Pneumococcal Aged Out N o longer eligible based on patient's age to complete this topic Insurance [employer] [facility] Care Teams Sports Photographer Relationship Specialty Start Date End Date Unknown, Attending Provider PCP - General 12/19/23 Ha Harrison MD [address] [place] [address] [id number] Consulting Physician Radiation Oncology 06/18/23 Simi Chung, RN Registered Nurse 06/18/23 Pcp, No No Address 12/15/23
--- OUTSIDE RECORDS SUMMARY | 2024-10-10 10:28 | XMS_ITS | Referral Summary ---
Author Organization [employer] ([place], [place], [place], [place]) Address [address] [place] [address] Care Team Providers Care Outreach Coordinator Name Role Phone Gurjit Mena MD Primary Care Provider [phone] Fausto Nieves MD Unavailable [phone] Encounters Date Type Department Care Team Description 10/08/2024 Travel 10/08/2024 8:20 PM EDT - 10/08/2024 10:35 PM EDT Emergency [facility] Emergency Department [address] [place] [phone] Som Crowe DO Nausea and vomiting, unspecified vomiting type (Primary Dx); Chronic knee pain after total replacement of left knee joint Discharge Disposition: Home or Self Care 10/08/2024 10:00 AM EDT Ancillary Procedure [address] [address] Ermias Obando PA-C Arrived 10/08/2024 9:15 AM EDT Office Visit [address] [address] Ermias Obando PA-C S/P total knee arthroplasty, left (Primary Dx); Left knee pain; Contusion of left knee, initial encounter 08/26/2024 Travel 08/26/2024 11:00 AM EDT Treatment [facility] OP Physical Therapy [address] [place] [phone] Tejas Richard, PT Status post left knee replacement with ANNA (Primary Dx) 08/09/2024 Travel 08/09/2024 10:15 AM EDT Treatment [facility] OP Physical Therapy [address] [place] [phone] Du You, SHOE SALESMAN Status post left knee replacement with ANNA (Primary Dx) 08/06/2024 Travel 08/06/2024 10:15 AM EDT Treatment [facility] OP Physical Therapy [address] [place] [phone] Du You, SHOE SALESMAN Status post left knee replacement with ANNA (Primary Dx) 08/02/2024 Travel 08/02/2024 10:15 AM EDT Treatment [facility] OP Physical Therapy [address] [place] [phone] Du You, SHOE SALESMAN Status post left knee replacement with ANNA (Primary Dx) 07/30/2024 Travel 07/30/2024 10:15 AM EDT Treatment [facility] OP Physical Therapy [address] [place] [phone] Du You, SHOE SALESMAN Status post left knee replacement with ANNA (Primary Dx) 07/28/2024 Travel 07/28/2024 10:15 AM EDT Treatment [facility] OP Physical Therapy [address] [place] [phone] Du You, SHOE SALESMAN Status post left knee replacement with ANNA (Primary Dx) 07/20/2024 Travel 07/20/2024 9:30 AM EDT Treatment [facility] OP Physical Therapy [address] [place] [phone] Murali Bear, PT Status post left knee replacement with ANNA (Primary Dx) 07/18/2024 [facility] Orthopedics [facility] [address] [place] [address] Fausto Nieves MD 07/15/2024 Travel 07/15/2024 8:48 PM EDT - 07/15/2024 11:00 PM EDT Emergency [facility] Emergency Department [address] [place] [address] Patti English MD Nausea with vomiting (Primary Dx); Diarrhea; Viral infection; Nausea and vomiting, unspecified vomiting type; Diarrhea, unspecified type Discharge Disposition: Home or Self Care 07/13/2024 Travel 07/13/2024 10:15 AM EDT Treatment [facility] OP Physical Therapy [address] [place] [address] Murali Bear, PT Status post left knee replacement with ANNA (Primary Dx) from Last 3 Months Allergies Active Allergy [...] 2 (two) times daily. 60 tablet 5 06/23/19 26 Active ferrous sulfate 325 (65 FE) MG EC tablet Take 1 tablet (325 mg total) by mouth daily. 30 tablet 5 06/24/19 26 Active ondansetron (ZOFRAN-ODT) 4 MG disintegrating tablet Take 1 tablet (4 mg total) by mouth every 4 (four) hours as needed for nausea or vomiting for up to 7 days. 20 tablet 5 10/16/19 25 Active Active Problems Problem Noted Date Diagnosed Date [...] the past 12 months, has t he [employer], gas, oil, or water [employer] threatened to shut off services in your [...] Do you speak a language other than [place] at [facility]? No 06/21/2024 Do you want help with [...] 10/08/2024 10:20 PM EDT Inhaled Oxygen Concentration 21% 06/21/2024 1 0:31 PM EDT Weight 97.5 kg (215 lb) 10/08/2024 8:28 PM EDT Height 170.2 cm (5' 7 ) 10/08/2024 8:28 PM EDT Body Mass Index 33.67 10/08/2024 8:28 PM EDT Plan of Treatment Upcoming Encounters Date Type Department Care Team (Late st Contact Info) Description 11/23/2024 10:00 AM EDT Office Visit [facility] Orthopedics - [address] [phone] Fausto Nieves MD [address] [place] [address] Medical Devices Implanted Type Area Impact Hammer Operator Device Identifier Shelf Expiration Date Model / Serial / Lot Comp Triathlopaige Michaud Sz3 5536-B-300 - [id number] Implanted:Qt y: 1 on 06/21/2024 by Fausto Nieves MD at [facility] TOTAL JOINT CONSTRUCT Left: Knee LEANDER:[employer] [id number] 10/06/2028 5536-B-30 0 / / [id number] Patella Press Fit Tritanium 5552-L-299 - [id number] Implanted:Qt y: 1 on 06/21/2024 by Fausto Nieves MD at [facility] TOTAL JOINT CONSTRUCT Left: Knee LEANDER:[employer] [id number] 02/17/2029 5552-L-29 9 / / [id number] Comp Fem P/A Cr Beaded Sz3 L 5517-F-301 - [id number] Implanted:Qt y: 1 on 06/21/2024 by Fausto Nieves MD at [facility] TOTAL JOINT CONSTRUCT Left: Knee LEANDER:[employer] [id number] 02/07/2029 5517-F-30 1 / / [id number] 3000 Insrt Tib Bearing #3 10mm 0079-P-983-E - [id number] Implanted:Qt y: 1 on 06/21/2024 by Fausto Nieves MD at [facility] TOTAL JOINT CONSTRUCT Left: Knee LEANDER:[employer] [id number] 11/22/2028 5531-G-31 0-E / / [id number] Loop Recorder Explanted Type Area Impact Hammer Operator Device Identifier Shelf Expiration Date Model / Serial / Lot Pin Bone [id number] Strl [id number] - [id number] Explanted:Qty: 1 on 06/21/2024 at [facility] IMPLANTS Left: Knee [employer]ANDER:[employer] 02/25/2029 [id number] / / [id number] Pin Bone [id number] Strl [id number] - [id number] Explanted:Qty: 1 on 06/21/2024 at [facility] IMPLANTS Left: Knee [employer]ANDER:[employer] 03/10/2029 [id number] / / [id number] Procedures Procedure Name Priority Date/Time Associated Diagnosis Comments US DOPPLER VENOUS LEG LEFT STAT 10/08/2024 10:11 PM EDT FS_MODEL_IP_ECG 12-LEAD STAT 10/08/2024 9:31 PM EDT HIGH SENSITIVITY TROPONIN I Add-On 10/08/2024 8:56 PM EDT LIPASE STAT 10/08/2024 8:56 PM EDT COMPREHENSIVE METABOLIC PANEL STAT 10/08/2024 8:56 PM EDT CBC W/ AUTO DIFF STAT 10/08/2024 8:56 PM EDT URINALYSIS, REFLEX MICROSCOPIC AND CULTURE IF INDICATED STAT 07/15/2024 10:18 PM EDT LIPASE STAT 07/15/2024 9:21 PM EDT HEPATIC FUNCTION PANEL STAT 9:21 PM EDT BASIC METABOLIC PANEL STAT 07/15/2024 9:21 PM EDT CBC W/ AUTO DIFF STAT 07/15/2024 9:21 PM EDT from Last 3 Months Results * US DOPPLER VENOUS LEG LEFT [...] lower extremity deep vein thrombosis. Authenticated and Som Sebastien DO CV VASCULAR ORDERABLES Final Res ult * ECG 12 lead (10/08/2024 9:31 PM EDT) VENTRICULAR RATE EKG/MIN 48 BPM GE MUSE ATRIAL RATE (MCT) 48 BPM GE MUSE LA Interval 198 ms GE MUSE QRS-INTERVAL (MSEC) 100 ms GE MUSE QT Interval 510 ms GE MUSE QTC Interval 455 ms GE MUSE P [place] 60 degrees GE MUSE R AXIS (MCT) 19 degrees GE MUSE T Wave [place] 20 degrees GE MUSE [place] Diagnosis Sinus bradycardia Low voltage QRS Cannot rule out Anterior infarct , age undetermined Abnormal ECG Confirmed by Emigdio CRUZ, KEEGAN ([id number]) on 10/09/2024 2:47:07 PM GE MUSE 10/08/2024 9:31 PM EDT 10/09/2024 2:47 PM EDT Som Crowe DO ECG ORDERABLES Final Result GE MUSE * (ABNORMAL) CBC with Auto Diff (10/08/2024 8:56 PM EDT) Only the most recent of2 resultswithin the time period is included. WBC 8.3 4.8 - 10.8 K/ L 10/08/2024 9:08 PM EDT [facility] RBC 4.10 3.50 - 5.20 M/ L 10/08/2024 9:08 PM EDT [facility] Hemoglobin 12.8 11.7 - 15.8 GM/DL 10/08/2024 9:08 PM EDT [facility] Hematocrit 37.0 35.0 - 47.0 % 10/08/2024 9:08 PM EDT [facility] MCV 90 81 - 101 fL 10/08/2024 9:08 PM EDT [facility] MCH 31.2 27.0 - 34.0 pg 10/08/2024 9:08 PM EDT [facility] MCHC 34.6 32.0 - 36.0 GM/DL 10/08/2024 9:08 PM EDT [facility] RDW 12.4 11.5 - 14.5 % 10/08/2024 9:08 PM EDT [facility] Platelets 263 150 - 400 K/CU MM 10/08/2024 9:08 PM EDT [facility] MPV 10.3 9.4 - 12.4 fL 10/08/2024 9:08 PM EDT [facility] Nucleated Red Blood Cell 0.0 0 - 0.2 % 10/08/2024 9:08 PM EDT [facility] % Neutros 60 37 - 80 % 10/08/2024 9:08 PM EDT [facility] % Lymphs 32 10 - 50 % 10/08/2024 9:08 PM EDT [facility] % Monos 6 5 - 13 % 10/08/2024 9:08 PM EDT [facility] % Eos 2 0 - 7 % 10/08/2024 9:08 PM EDT [facility] % Baso 1 0 - 3 % 10/08/2024 9:08 PM EDT [facility] NRBC Absolute <0.01 0 - 0.012 K/ul 10/08/2024 9:08 PM EDT [facility] # Neutros 4.98 2.00 - 6.90 K/ L 10/08/2024 9:08 PM EDT [facility] # Lymphs 2.62 0.60 - 3.40 K/ L 10/08/2024 9:08 PM EDT [facility] # Monos 0.48 0.00 - 0.90 K/ L 10/08/2024 9:08 PM EDT [facility] # Eos 0.17 0.00 - 0.70 K/ L 10/08/2024 9:08 PM EDT [facility] # Baso 0.04 0.00 - 0.20 K/ L 10/08/2024 9:08 PM EDT [facility] Immature Granulocytes-Re lative 0.20 % 10/08/2024 9:08 PM EDT [facility] # IG 0.02(H) 0.00 - 0.00 K/uL 10/08/2024 9:08 PM EDT [facility] Blood Venipuncture / Unknown 10/08/2024 8:56 PM EDT 10/08/2024 8:59 PM EDT Narrative [facility] - 10/08/2024 9:08 PM EDT When [...] BLOOD ORDERABLES Fi nal Result [facility] [address] [place] [address] * High Sensitivity Troponin I (10/08/2024 8:56 PM EDT) Troponin I High Sensitivity (pg/mL) 15.6 4 - 60.3 pg/mL 10/08/2024 9:26 PM EDT [facility] Comment: Troponin Result (pg/mL) *Interpretation 4-60.3 [...] 8:56 PM EDT 10/08/2024 8:59 PM EDT Som Crowe DO LAB BLOOD ORDERABLES Final Resul t Performing Organization Address City/[facility] Co de Phone Number [facility] [address] [place] [address] * Lipase (10/08/2024 8:56 PM EDT) Only the most recent of2 resultswithin the time period is included. Lipase 16 16 - 77 U/L 10/08/2024 9:26 PM EDT [facility] Blood Venipuncture / Unknown 10/08/2024 8:56 PM EDT 10/08/2024 8:59 PM EDT Koby Ramesh PA-C LAB BLOOD ORDERABLES Fi nal Result Performing Organization Address City/[facility]/ZIP Co de Phone Number [facility] [address] [place] [address] * (ABNORMAL) Comprehensive metabolic panel (10/08/2024 8:56 PM EDT) Sodium 138 136 - 145 meq/L 10/08/2024 9:26 PM EDT [facility] Potassium 3.6 3.5 - 5.1 meq/L 10/08/2024 9:26 PM EDT [facility] Chloride 103 98 - 107 meq/L 10/08/2024 9:26 PM EDT [facility] CO2 29 21 - 32 meq/L 10/08/2024 9:26 PM EDT [facility] Calcium 8.7 8.5 - 10.1 mg/dL 10/08/2024 9:26 PM EDT [facility] Glucose 84 74 - 100 mg/dL 10/08/2024 9:26 PM EDT [facility] BUN 9 7 - 18 mg/dL 10/08/2024 9:26 PM EDT [facility] Creatinine 0.97 0.55 - 1.10 mg/dL 10/08/2024 9:26 PM EDT [facility] BUN/Creatinine 9 10/08/2024 9:26 PM EDT [facility] Albumin 3.4 3.4 - 5.0 g/dL 10/08/2024 9:26 PM EDT [facility] Alkaline Phosphatase 85 46 - 116 U/L 10/08/2024 9:26 PM EDT [facility] ALT 20 12 - 78 U/L 10/08/2024 9:26 PM EDT [facility] AST 14(L) 15 - 37 U/L 10/08/2024 9:26 PM EDT [facility] Total Bilirubin 0.3 0.2 - 1.0 mg/dL 10/08/2024 9:26 PM EDT [facility] Protein, Total 6.8 6.4 - 8.2 gm/dL 10/08/2024 9:26 PM EDT [facility] Anion Gap 10(L) 11 - 22 10/08/2024 9:26 PM EDT [facility] A/G Ratio 1.0 10/08/2024 9:26 PM EDT [facility] Globulin 3.4 g/dL 10/08/2024 9:26 PM EDT [facility] Osmolality Calc 273.6 mOsm/kg 9:26 PM EDT [facility] eGFR (mL/min/1.73m2) >60 >=60 mL/min/1.7 3m2 10/08/2024 9:26 PM EDT [facility] Comment:ESTIMATED GFR IS NOT ACCURATE CREATININE CLEARANCE IN PREDICTING GLOMERULAR FILTRATION RATE. ESTIMATED GFR IS NOT APPLICABLE FOR DIALYSIS PATIENTS. Blood Venipuncture / Unknown 10/08/2024 8:56 PM EDT 10/08/2024 8:59 PM EDT Koby Rmaesh PA-C LAB BLOOD ORDERABLES Fi nal Result Performing Organization Address City/[facility] Co de Phone Number [facility] [address] [id number], [facility] [phone] * Urinalysis, Reflex Microscopic and Culture If Indicated (07/15/2024 10:18 PM EDT) Color, UA Straw 07/15/2024 10:39 PM EDT [facility] Clarity, UA Clear 07/15/2024 10:39 PM EDT [facility] Specific [place], UA 1.020 1.002 - 1.030 07/15/2024 10:39 PM EDT [facility] pH, UA 6.0 5.0 - 9.0 07/15/2024 10:39 PM EDT [facility] Leukocytes, UA Negative Negative 07/15/2024 10:39 PM EDT [facility] Nitrite, UA Negative Negative 07/15/2024 10:39 PM EDT [facility] Protein, UA Negative Negative 07/15/2024 10:39 PM EDT [facility] Glucose, UA Negative Negative 07/15/2024 10:39 PM EDT [facility] Ketones, UA Negative Negative 07/15/2024 10:39 PM EDT [facility] Bilirubin, UA Negative Negative 07/15/2024 10:39 PM EDT [facility] Blood, UA Negative Negative 07/15/2024 10:39 PM EDT [facility] Urobilinogen, UA 0.2 mg/dL Normal 07/15/2024 10:39 PM EDT [facility] Specimen Source Urine, Clean Catch 07/15/2024 10:39 PM EDT [facility] Urine URINE SPECIMEN COLLECTION, CLEAN CATCH / Unknown 07/15/2024 10:18 PM EDT 07/15/2024 10:25 PM EDT Patti English MD URINE ORDERABLES Final Result [facility] [address] [place] [address], [facility] [phone] * (ABNORMAL) Hepatic function panel (07/15/2024 9:21 PM EDT) Protein, Total 7.4 6.4 - 8.2 gm/dL 07/15/2024 9:55 PM EDT [facility] Albumin 3.5 3.4 - 5.0 g/dL 07/15/2024 9:55 PM EDT [facility] Total Bilirubin 0.3 0.2 - 1.0 mg/dL 07/15/2024 9:55 PM EDT [facility] Bilirubin, Direct 0.1 0.1 - 0.2 mg/dL 07/15/2024 9:55 PM EDT [facility] Alkaline Phosphatase 128(H) 46 - 116 U/L 07/15/2024 9:55 PM EDT [facility] Globulin 3.9 g/dL 07/15/2024 9:55 PM EDT [facility] A/G Ratio 0.9 07/15/2024 9:55 PM EDT [facility] AST 20 15 - 37 U/L 07/15/2024 9:55 PM EDT [facility] Comment:[employer] has become aware of sulfasalazine and sulfapyridine [...] - 78 U/L 07/15/2024 9:55 PM EDT [facility] Comment:[employer] has become aware of sulfasalazine and sulfapyridine [...] LAB BLOOD ORDERABLES Final Resu lt [facility] [address] [place] [address] * (ABNORMAL) Basic Metabolic Panel (07/15/2024 9:21 PM EDT) Sodium 135(L) 136 - 145 meq/L 07/15/2024 9:55 PM EDT [facility] Potassium 3.7 3.5 - 5.1 meq/L 07/15/2024 9:55 PM EDT [facility] Chloride 103 98 - 107 meq/L 07/15/2024 9:55 PM EDT [facility] CO2 26 21 - 32 meq/L 07/15/2024 9:55 PM EDT [facility] Anion Gap 10(L) 11 - 22 07/15/2024 9:55 PM EDT [facility] BUN 8 7 - 18 mg/dL 07/15/2024 9:55 PM EDT [facility] Creatinine 1.01 0.55 - 1.10 mg/dL 07/15/2024 9:55 PM EDT [facility] BUN/Creatinine 8 07/15/2024 9:55 PM EDT [facility] Glucose 113(H) 70 - 99 mg/dL 07/15/2024 9:55 PM EDT [facility] Calcium 8.9 8.5 - 10.1 mg/dL 07/15/2024 9:55 PM EDT [facility] Osmolality Calc 269.2 mOsm/kg 9:55 PM EDT [facility] eGFR (mL/min/1.73m2) >60 >=60 mL/min/1.7 3m2 07/15/2024 9:55 PM EDT [facility] Comment:eGFR of <60 suggests chronic kidney disease if found over a 3 month period of time. eGFR <15 indicates renal failure. Blood Venipuncture / Unknown 07/15/2024 9:21 PM EDT 07/15/2024 9:31 PM EDT us Patti English MD LAB BLOOD ORDERABLES Final Resu lt [facility] [address] [place] [address], [facility] [phone] from Last 3 Months Insurance [id number] (Home) [address] [place] [address] [facility] MEDICAID Advance Directives For more information, please contact: [phone] * Full Code (Latest Code Status on File) Date Activated Date Inactivated Comments 06/21/2024 9:24 AM 06/22/2024 2:30 PM * Full Code Date Activated Date Inactivated Comments 06/21/2024 5:31 AM 06/21/2024 9:24 AM Care Teams Outreach Coordinator Relationship Specialty Start Date End Date Gurjit Mena MD [address] [place] [facility] [address] [place] [address] PCP - General Family Medicine 06/17/24 Fausto Nieves MD [address] [place] [address] Orthopedic Surgery 06/30/24
--- OUTSIDE RECORDS SUMMARY | 2024-10-10 10:28 | XMS_ITS | Encounter Summary ---
Author Organization [employer] ([place], [place], [place], [place]) Address [address] [place] [address] Care Team Providers Care Statistical Secretary Name Role Phone Gurjit Mena MD Primary Care Provider [phone] Fausto Nieves MD Unavailable [phone] Encounter Details Date Type Department Care Team (Latest Contact Info) Description 10/08/2024 Travel Social History Tobacco Use Types Packs/Day [...] Do you speak a language other than [place] at [facility]? No 06/21/2024 Do you want [...] Description 11/23/2024 10:00 AM EDT Office Visit [facility] Orthopedics - [address] [phone] Fausto Nieves MD [address] [place] [address] documented as of this encounter Visit Diagnoses Not on filedocumented in this encounter Care Teams Statistical Secretary Relationship Specialty Start Date End Date Gurjit Mena MD [address] [facility] [address] [address] PCP - General Family Medicine 06/17/24 Fausto Nieves MD [address] [place] [address] Orthopedic Surgery 06/30/24 documented as of this encounter
--- OUTSIDE RECORDS SUMMARY | 2024-10-10 10:28 | XMS_ITS | Encounter Summary ---
Author Organization [employer] ([place], [place], [place], [place]) Address [address] [place] [address] Care Team Providers Care Hinging Machine Operator Name Role Phone Gurjit Mena MD Primary Care Provider [phone] Fausto Nieves MD Unavailable [phone] Reason for Visit * Reason Comments Medication Refill Encounter Details Date Type Department Care Team (Late st Contact Info) Description 07/18/2024 Refill [facility] Orthopedics - [address] [address] Fausto Nieves MD [address] [place] [phone] Social History Tobacco Use Types Packs/Day [...] Do you speak a language other than [place] at [facility]? No 06/21/2024 Do you want help with [...] Description 11/23/2024 10:00 AM EDT Office Visit [facility] Orthopedics - [address] [phone] Fausto Nieves MD [address] [place] [phone] documented as of this encounter Visit Diagnoses Not on filedocumented in this encounter Care Teams Hinging Machine Operator Relationship Specialty Start Date End Date Gurjit Mena MD [address] [place] [address] [place] [address] PCP - General Family Medicine 06/17/24 Fausto Nieves MD [address] [place] [address] Orthopedic Surgery 06/30/24 documented as of this encounter
--- OUTSIDE RECORDS SUMMARY | 2024-10-10 10:28 | XMS_ITS | Clinical Summary ---
Author Organization [employer] ([place], [place], [place], [place]) Address [address] [place] [address] Care Team Providers Care Corrugated Sheet Material Sheeter Name Role Phone Gurjit Mena MD Primary Care Provider [phone] Fausto Nieves MD Unavailable [phone] Allergies Active Allergy Reactions Criticality Noted [...] Date Type Department Care Team Description 10/08/2024 8:20 PM EDT - 10/08/2024 10:35 PM EDT Emergency [facility] Emergency Department [address] [place] [address] Som Crowe DO Nausea and vomiting, unspecified vomiting type (Primary Dx); Chronic knee pain after total replacement of left knee joint Discharge Disposition: Home or Self Care 10/08/2024 10:00 AM EDT Ancillary Procedure [address] [address] Ermias Obando PA-C Arrived 10/08/2024 9:15 AM EDT Office Visit [facility] - [address] [address] Ermias Obando PA-C S/P total knee arthroplasty, left (Primary Dx); Left knee pain; Contusion of left knee, initial encounter 10/08/2024 Travel 08/26/2024 11:00 AM EDT Treatment [facility] OP Physical Therapy [address] [place] [phone] Tejas Richard E, PT Status post left knee replacement with ANNA (Primary Dx) 08/26/2024 Travel 08/09/2024 10:15 AM EDT Treatment [facility] OP Physical Therapy [address] [place] [phone] Du You, NITROCELLULOSE MAKER Status post left knee replacement with ANNA (Primary Dx) 08/09/2024 Travel 08/06/2024 10:15 AM EDT Treatment [facility] OP Physical Therapy [address] [place] [phone] Du You, NITROCELLULOSE MAKER Status post left knee replacement with ANNA (Primary Dx) 08/06/2024 Travel 08/02/2024 10:15 AM EDT Treatment [facility] OP Physical Therapy [address] [place] [phone] Du You, NITROCELLULOSE MAKER Status post left knee replacement with ANNA (Primary Dx) 08/02/2024 Travel 07/30/2024 10:15 AM EDT Treatment [facility] OP Physical Therapy [address] [place] [phone] Du You, NITROCELLULOSE MAKER Status post left knee replacement with ANNA (Primary Dx) 07/30/2024 Travel 07/28/2024 10:15 AM EDT Treatment [facility] OP Physical Therapy [address] [place] [phone] Du You, NITROCELLULOSE MAKER Status post left knee replacement with ANNA (Primary Dx) 07/28/2024 Travel 07/20/2024 9:30 AM EDT Treatment [facility] OP Physical Therapy [address] [place] [phone] Murali Bear, PT Status post left knee replacement with ANNA (Primary Dx) 07/20/2024 Travel 07/18/2024 Refill [facility] [place] [address] [place] [phone] Fausto Nieves MD 07/15/2024 8:48 PM EDT - 07/15/2024 11:00 PM EDT Emergency [facility] Emergency Department [address] [place] [address] Patti English MD Nausea with vomiting (Primary Dx); Diarrhea; Viral infection; Nausea and vomiting, unspecified vomiting type; Diarrhea, unspecified type Discharge Disposition: Home or Self Care 07/15/2024 Travel 07/13/2024 10:15 AM EDT Treatment [facility] OP Physical Therapy [address] [place] [phone] Murali Bear, PT Status post left knee replacement with ANNA (Primary Dx) 07/13/2024 Travel from Last 3 Months Family History Medical [...] speak a language other than Brazilian at [facility]? No 06/21/2024 Do you want help [...] Description 11/23/2024 10:00 AM EDT Office Visit [facility] - [address] [address] aFusto Nieves MD [address] [place] [address] Health Maintenance Due Date Last Done Comments CT Colonography 1976 Colonoscopy 1976 Colorectal Cancer Screening 1976 FOBT/FIT 1976 Fit-DNA (Cologuard) 1976 Sigmoidoscopy 1976 Depression Screening (12+) 1988 HIV Screening 10/30/1991 Hepatitis C Screening 1994 Pneumococcal Vaccine: 0-49 Y ears (1 of 2 - PCV) 10/30/1995 Pap Smear 1997 Lipid Panel 2021 COVID-19 VACCINE (3 - 2023-2 5 season) 2023 07/05/2020, 05/30/2020 Influenza Vaccine (#1) 2024 Breast Cancer Screening 03/31/2025 03/31/19 24, 03/31/2023, 02/18/2022, Additional history exists Tobacco Cessation Counseling and Screening (12+) 10/08/2025 10/08/2024 DTAP/TDAP/TD VACCINES (2 - T d or Tdap) 04/25/2029 04/26/2019 Medical Devices Implanted Type Area Pleating Machine Operator Device Identifier Shelf Expiration Date Model / Serial / Lot Comp Triathlon Tib Trita Sz3 5536-B-300 - [id number] Implanted:Qt y: 1 on 06/21/2024 by Fausto Nieves MD at [facility] TOTAL JOINT CONSTRUCT Left: Knee LEANDER:[employer] [id number] 10/06/2028 5536-B-30 0 / / [id number] Patella Press Fit Tritanium 5552-L-299 - [id number] Implanted:Qt y: 1 on 06/21/2024 by Fausto Nieves MD at [facility] TOTAL JOINT CONSTRUCT Left: Knee LEANDER:[employer] [id number] 02/17/2029 5552-L-29 9 / / [id number] Comp Fem P/A Cr Beaded Sz3 L 5517-F-301 - [id number] Implanted:Qt y: 1 on 06/21/2024 by Fausto Nieves MD at [facility] TOTAL JOINT CONSTRUCT Left: Knee LEANDER:[employer] [id number] 02/07/2029 5517-F-30 1 / / [id number] Insrt Tib Bearing #3 10mm 6369-Z-701-E - [id number] Implanted:Qt y: 1 on 06/21/2024 by Fausto Nieves MD at [facility] TOTAL JOINT CONSTRUCT Left: Knee LEANDER:[employer] [id number] 11/22/2028 5531-G-31 0-E / / [id number] Loop Recorder Explanted Type Area Pleating Machine Operator Device Identifier Shelf Expiration Date Model / Serial / Lot Pin Bone [id number] Strl [id number] - [id number] Explanted:Qty: 1 on 06/21/2024 at [facility] IMPLANTS Left: Knee LEANDER:[employer] 02/25/2029 [id number] / / [id number] Pin Bone [id number] Strl [id number] - [id number] Explanted:Qty: 1 on 06/21/2024 at [facility] IMPLANTS Left: Knee LEANDER:[employer] 03/10/2029 [id number] / / [id number] Procedures Procedure Name Priority Date/Time Associated Diagnosis [...] ATRIAL RATE (MCT) 48 BPM GE MUSE SD Interval 198 ms GE MUSE QRS-INTERVAL (MSEC) 100 ms GE MUSE QT Interval 510 ms GE MUSE QTC Interval 455 ms GE MUSE P [place] 60 degrees GE MUSE R AXIS (MCT) 19 degrees GE MUSE T Wave [place] Log 20 degrees GE MUSE [place] Diagnosis Sinus bradycardia Low voltage QRS Cannot [...] 10.8 K/ L 10/08/2024 9:08 PM EDT [facility] RBC 4.10 3.50 - 5.20 M/ L 10/08/2024 9:08 PM EDT [facility] Hemoglobin 12.8 11.7 - 15.8 GM/DL 10/08/2024 9:08 PM EDT [facility] Hematocrit 37.0 35.0 - 47.0 % 10/08/2024 9:08 PM EDT [facility] MCV 90 81 - 101 fL 10/08/2024 9:08 PM EDT [facility] MCH 31.2 27.0 - 34.0 pg 10/08/2024 9:08 PM EDT [facility] MCHC 34.6 32.0 - 36.0 GM/DL 10/08/2024 9:08 PM EDT [facility] RDW 12.4 11.5 - 14.5 % 10/08/2024 9:08 PM EDT [facility] Platelets 263 150 - 400 K/CU MM 10/08/2024 9:08 PM EDT [facility] MPV 10.3 9.4 - 12.4 fL 10/08/2024 9:08 PM EDT [facility] Nucleated Red Blood Cell 0.0 0 - 0.2 % 10/08/2024 9:08 PM EDT [facility] % Neutros 60 37 - 80 % 10/08/2024 9:08 PM EDT [facility] % Lymphs 32 10 - 50 % 10/08/2024 9:08 PM EDT [facility] % Monos 6 5 - 13 % 10/08/2024 9:08 PM EDT [facility] % Eos 2 0 - 7 % 10/08/2024 9:08 PM EDT [facility] % Baso 1 0 - 3 % 10/08/2024 9:08 PM EDT [facility] NRBC Absolute <0.01 0 - 0.012 K/ul 10/08/2024 9:08 PM EDT [facility] # Neutros 4.98 2.00 - 6.90 K/ L 10/08/2024 9:08 PM EDT [facility] # Lymphs 2.62 0.60 - 3.40 K/ L 10/08/2024 9:08 PM EDT [facility] # Monos 0.48 0.00 - 0.90 K/ L 10/08/2024 9:08 PM EDT [facility] # Eos 0.17 0.00 - 0.70 K/ L 10/08/2024 9:08 PM EDT [facility] # Baso 0.04 0.00 - 0.20 K/ L 10/08/2024 9:08 PM EDT [facility] Immature Granulocytes-Re lative 0.20 % 10/08/2024 9:08 PM EDT [facility] # IG 0.02(H) 0.00 - 0.00 K/uL 10/08/2024 9:08 PM EDT [facility] Blood Venipuncture / Unknown 10/08/2024 8:56 PM EDT 10/08/2024 8:59 PM EDT Narrative [facility] - 10/08/2024 9:08 PM EDT [...] ORDERABLES Fi nal Result Performing Organization Address [facility] de Phone Number [facility] [address] [place] [address] * High Sensitivity Troponin I (10/08/2024 8:56 PM EDT) [facility] Troponin I High Sensitivity (pg/mL) 15.6 4 - 60.3 pg/mL 10/08/2024 9:26 PM EDT [facility] Comment: Troponin Result (pg/mL) *Interpretation [...] ORDERABLES Final Resul t Performing Organization Address [facility] Phone Number [facility] [address] [place] [address] * Lipase (10/08/2024 8:56 PM EDT) Only the most recent of2 resultswithin the time period is included. [facility] Lipase 16 16 - 77 U/L 10/08/2024 9:26 PM EDT [facility] Blood Venipuncture / Unknown 10/08/2024 8:56 PM EDT 10/08/2024 8:59 PM EDT us Koby Ramesh PA-C LAB BLOOD ORDERABLES Fi nal Result [facility] [address] [place], [place] [address] [phone] * (ABNORMAL) Comprehensive metabolic panel (10/08/2024 8:56 PM EDT) Sodium 138 136 - 145 meq/L 10/08/2024 9:26 PM EDT [facility] Potassium 3.6 3.5 - 5.1 meq/L 10/08/2024 9:26 PM EDT [facility] Chloride 103 98 - 107 meq/L 10/08/2024 9:26 PM EDT [facility] CO2 29 21 - 32 meq/L 10/08/2024 9:26 PM EDT [facility] Calcium 8.7 8.5 - 10.1 mg/dL 10/08/2024 9:26 PM EDT [facility] Glucose 84 74 - 100 mg/dL 10/08/2024 9:26 PM EDT [facility] BUN 9 7 - 18 mg/dL 10/08/2024 9:26 PM EDT [facility] Creatinine 0.97 0.55 - 1.10 mg/dL 10/08/2024 9:26 PM EDT [facility] BUN/Creatinine 9 10/08/2024 9:26 PM EDT [facility] Albumin 3.4 3.4 - 5.0 g/dL 10/08/2024 9:26 PM EDT [facility] Alkaline Phosphatase 85 46 - 116 U/L 10/08/2024 9:26 PM EDT [facility] ALT 20 12 - 78 U/L 10/08/2024 9:26 PM EDT [facility] AST 14(L) 15 - 37 U/L 10/08/2024 9:26 PM EDT [facility] Total Bilirubin 0.3 0.2 - 1.0 mg/dL 10/08/2024 9:26 PM EDT [facility] Protein, Total 6.8 6.4 - 8.2 gm/dL 10/08/2024 9:26 PM EDT [facility] Anion Gap 10(L) 11 - 22 10/08/2024 9:26 PM EDT [facility] A/G Ratio 1.0 10/08/2024 9:26 PM EDT [facility] Globulin 3.4 g/dL 10/08/2024 9:26 PM EDT [facility] Osmolality Calc 273.6 mOsm/kg 9:26 PM EDT [facility] eGFR (mL/min/1.73m2) >60 >=60 mL/min/1.7 3m2 10/08/2024 9:26 PM EDT [facility] Comment:ESTIMATED GFR IS NOT ACCURATE CREATININE CLEARANCE IN PREDICTING GLOMERULAR FILTRATION RATE. ESTIMATED GFR IS NOT APPLICABLE FOR DIALYSIS PATIENTS. Blood Venipuncture / Unknown 10/08/2024 8:56 PM EDT 10/08/2024 8:59 PM EDT Koby Ramesh PA-C LAB BLOOD ORDERABLES Fi nal Result [facility] [address] [place] [address], [facility] [phone] * Urinalysis, Reflex Microscopic and Culture If Indicated (07/15/2024 10:18 PM EDT) Color, UA Straw 07/15/2024 10:39 PM EDT [facility] Clarity, UA Clear 07/15/2024 10:39 PM EDT [facility] Specific Floyd, UA 1.020 1.002 - 1.030 07/15/2024 10:39 PM EDT [facility] pH, UA 6.0 5.0 - 9.0 07/15/2024 10:39 PM EDT [facility] Leukocytes, UA Negative Negative 07/15/2024 10:39 PM EDT [facility] Nitrite, UA Negative Negative 07/15/2024 10:39 PM EDT [facility] Protein, UA Negative Negative 07/15/2024 10:39 PM EDT [facility] Glucose, UA Negative Negative 07/15/2024 10:39 PM EDT [facility] Ketones, UA Negative Negative 07/15/2024 10:39 PM EDT [facility] Bilirubin, UA Negative Negative 07/15/2024 10:39 PM EDT [facility] Blood, UA Negative Negative 07/15/2024 10:39 PM EDT [facility] Urobilinogen, UA 0.2 mg/dL Normal 07/15/2024 10:39 PM EDT [facility] Specimen Source Urine, Clean Catch 07/15/2024 10:39 PM EDT [facility] Urine URINE SPECIMEN COLLECTION, CLEAN CATCH / Unknown 07/15/2024 10:18 PM EDT 07/15/2024 10:25 PM EDT us Patti English MD URINE ORDERABLES Final Result [facility] [address] [place] [address] * (ABNORMAL) Hepatic function panel (07/15/2024 9:21 PM EDT) Protein, Total 7.4 6.4 - 8.2 gm/dL 07/15/2024 9:55 PM EDT [facility] Albumin 3.5 3.4 - 5.0 g/dL 07/15/2024 9:55 PM EDT [facility] Total Bilirubin 0.3 0.2 - 1.0 mg/dL 07/15/2024 9:55 PM EDT [facility] Bilirubin, Direct 0.1 0.1 - 0.2 mg/dL 07/15/2024 9:55 PM EDT [facility] Alkaline Phosphatase 128(H) 46 - 116 U/L 07/15/2024 9:55 PM EDT [facility] Globulin 3.9 g/dL 07/15/2024 9:55 PM EDT [facility] A/G Ratio 0.9 07/15/2024 9:55 PM EDT [facility] AST 20 15 - 37 U/L 07/15/2024 9:55 PM EDT [facility] Comment:[place] has become aware of sulfasalazine and sulfapyridine [...] - 78 U/L 07/15/2024 9:55 PM EDT [facility] Comment:[place] has become aware of sulfasalazine and sulfapyridine [...] MD LAB BLOOD ORDERABLES Final Resu lt [facility] [address] [id number], [facility] [phone] * (ABNORMAL) Basic Metabolic Panel (07/15/2024 9:21 PM EDT) Sodium 135(L) 136 - 145 meq/L 07/15/2024 9:55 PM EDT [facility] Potassium 3.7 3.5 - 5.1 meq/L 07/15/2024 9:55 PM EDT [facility] Chloride 103 98 - 107 meq/L 07/15/2024 9:55 PM EDT [facility] CO2 26 21 - 32 meq/L 07/15/2024 9:55 PM EDT [facility] Anion Gap 10(L) 11 - 22 07/15/2024 9:55 PM EDT [facility] BUN 8 7 - 18 mg/dL 07/15/2024 9:55 PM EDT [facility] Creatinine 1.01 0.55 - 1.10 mg/dL 07/15/2024 9:55 PM EDT [facility] BUN/Creatinine 8 07/15/2024 9:55 PM EDT [facility] Glucose 113(H) 70 - 99 mg/dL 07/15/2024 9:55 PM EDT [facility] Calcium 8.9 8.5 - 10.1 mg/dL 07/15/2024 9:55 PM EDT [facility] Osmolality Calc 269.2 mOsm/kg 9:55 PM EDT [facility] eGFR (mL/min/1.73m2) >60 >=60 mL/min/1.7 3m2 07/15/2024 9:55 PM EDT [facility] Comment:eGFR of <60 suggests chronic kidney disease if found over a 3 month period of time. eGFR <15 indicates renal failure. Blood Venipuncture / Unknown 07/15/2024 9:21 PM EDT 07/15/2024 9:31 PM EDT us Patti English MD LAB BLOOD ORDERABLES Final Resu lt [facility] [address] [place] [address], [facility] [phone] from Last 3 Months Insurance [id number] (Home) [address] [place] [address] [employer] Advance Directives For more information, please contact: [phone] * Full Code (Latest Code Status on File) Date Activated Date Inactivated Comments 06/21/2024 9:24 AM 06/22/2024 2:30 PM * Full Code Date Activated Date Inactivated Comments 06/21/2024 5:31 AM 06/21/2024 9:24 AM Care Teams Corrugated Sheet Material Sheeter Relationship Specialty Start Date End Date Gurjit Mena MD [address] [place] [address] PCP - General Family Medicine 06/17/24 Fausto Nieves MD [address] [place] [address] Orthopedic Surgery 06/30/24
--- OUTSIDE RECORDS SUMMARY | 2024-10-10 10:28 | XMS_ITS | Encounter Summary ---
Author Organization [employer] ([place], [place], [place], [place]) Address [address] [place] [address] Care Team Providers Care Chip Mixer Name Role Phone Gurjit Mena MD Primary Care Provider [phone] Fausto Nievse MD Unavailable [phone] Encounter Details Date Type Department Care Team (Latest Contact Info) Description 08/26/2024 Travel Social History Tobacco Use Types Packs/Day [...] Do you speak a language other than [place] Citizen at [facility]? [...] Description 11/23/2024 10:00 AM EDT Office Visit [facility] - [address] [phone] Fausto Nieves MD [address] [place] [address] documented as of this encounter Visit Diagnoses Not on filedocumented in this encounter Care Teams Chip Mixer Relationship Specialty Start Date End Date Gurjit Mean MD [address] [facility] [address] [address] PCP - General Family Medicine 06/17/24 Fausto Nieves MD [address] [place] [address] Orthopedic Surgery 06/30/24 documented as of this encounter
--- NOTE | 2024-10-10 10:43 | CT_ITS ---
PROCEDURE INFORMATION: Exam: CTA Chest With Contrast Exam date and time: 10/10/2024 11:31 AM Age: 48 years old Clinical indication: Shortness of breath; Additional info: SOA, high risk pe TECHNIQUE: Imaging protocol: Computed tomographic angiography of the chest with contrast. Exam focused on the arteries. 3D rendering (Not supervised by radiologist): MIP and/or 3D reconstructed images were created by the technologist. Radiation optimization: All CT scans at this facility use at least one of these dose optimization techniques: automated exposure control; mA and/or kV adjustment per patient size (includes targeted exams where dose is matched to clinical indication); or iterative reconstruction. Contrast material: ISOVUE; Contrast volume: 80 ml; Contrast route: INTRAVENOUS (IV); COMPARISON: CT ANGIO CHEST PE PROTOCOL 08/01/2024 10:38 PM FINDINGS: Pulmonary arteries: The main pulmonary artery at the level of the right pulmonary artery measures 1.8 cm. No evidence of acute pulmonary embolism upto the subsegmental level. Aorta: The ascending aorta at the level of the right pulmonary artery measures 2.6 cm. Lungs: Subpleural nodule measuring 2 mm in the right upper lobe. Mild atelectasis is seen in both lung bases. Pleural spaces: Unremarkable. No pneumothorax. No pleural effusion. Heart: Unremarkable. No cardiomegaly. No pericardial effusion. Lymph nodes: Unremarkable. No enlarged lymph nodes. Bones/joints: Unremarkable. No acute fracture. Soft tissues: Unremarkable. IMPRESSION: 1. No evidence of acute pulmonary embolism upto the subsegmental level. 2. Subpleural nodule measuring 2 mm in the right upper lobe. For patients at low risk (minimal or absent history of smoking and of other known risk factors), no routine follow-up is indicated. For patients at high risk (history of smoking or of other known risk factors), consider optional CT Chest at 12 months. (Reference: Benjy) REFERENCES: Benjy Ramirez, et al. Guidelines for Management of Incidental Pulmonary Nodules Detected on CT Images: From the Fleischner Society 2017. Radiology. 2017;284(1):228-243.
--- NOTE | 2024-10-10 10:43 | XR_ITS ---
PROCEDURE INFORMATION: Exam: XR Chest Exam date and time: 10/10/2024 10:53 AM Age: 48 years old Clinical indication: Pain; Shortness of breath; Other: Cp; Additional info: SOA cp TECHNIQUE: Imaging protocol: Radiologic exam of the chest. Views: 1 view. COMPARISON: CT ANGIO CHEST PE PROTOCOL 08/01/2024 10:38 PM FINDINGS: Lungs: Unremarkable. No consolidation. Pleural spaces: Unremarkable. No pleural effusion. No pneumothorax. Heart/Mediastinum: Unremarkable. No cardiomegaly. Bones/joints: Unremarkable. IMPRESSION: No acute findings.
[2024-10-10] MEDS: MORPHINE 4MG/ML SYRINGE 4 MG IV (10:50)
[2024-10-10 11:00] LABS: Hematocrit 36.6 % (37.0-47.0); Hemoglobin 12.3 g/dL (12.2-16.2); Immature Granulocytes % 0.3 %; Mean Corpuscular HGB Conc 33.6 g/dL (31.8-35.4); Mean Corpuscular Hemoglobin 31.1 pg (27.0-31.2); Mean Corpuscular Volume 92.4 fl (81-99); Nucleated Red Blood Cells % 0 %; Platelet Count 248 K/mm3 (142-424); Red Blood Count 3.96 M/mm3 (4.20-5.40); Red Cell Distribution Width-SD 42.7 fL; White Blood Count 6.2 K/mm3 (4.8-10.8)
[2024-10-10 11:06] LABS: Chloride 109 mmol/L (98-107)
[2024-10-10 11:07] LABS: Albumin Level 3.9 g/dl (3.5-5.0); Potassium 4.0 mmoL/L (3.5-5.1); Sodium 139 mmol/L (136-145)
[2024-10-10 11:09] LABS: Blood Urea Nitrogen 10 mg/dl (7-17); Creatinine Clearance Estimated 119 mL/min (50-200); Creatinine,Serum 0.90 mg/dl (0.52-1.04); Estimated Glomerular Filt Rate 67 ml/min (>60); GFR (African American) 81 ML/MIN (>60)
[2024-10-10 11:10] LABS: Alanine Aminotransferase 14 U/L (12-78); Albumin/Globulin Ratio 1.4 (1.1-1.8); Alkaline Phosphatase 77 U/L (38-126); Anion Gap 9.0 mEq/L (5-15); Aspartate Amino Transferase 24 U/L (14-36); Bilirubin,Total 0.3 mg/dl (0.2-1.3); Calcium 8.9 mg/dl (8.4-10.2); Carbon Dioxide 25 mmol/L (22.0-30.0); Globulin 2.7 g/dL (1.3-3.2); Glucose 98 mg/dl (74-100); Total Protein,Serum 6.6 g/dl (6.3-8.2)
[2024-10-10 11:20] LABS: NT Pro Brain Natriuretic Pep. 292 pg/mL (0-125)
[2024-10-10 11:27] LABS: Troponin I < 0.01 ng/ml (0.00-0.034)
[2024-10-10] MEDS: IOPAMIDOL-370 (76%);100ML BOTTLE 80 ML IV (11:37)
[2024-10-10] MEDS: 0.9 % SODIUM CHLORIDE 50 ML VIAL IV (11:37)
[2024-10-10] MEDS: SODIUM CHLORIDE 0.9% 10ML SYR (RAD ONLY) 10 ML IV (11:37)
[2024-10-10 12:33] LABS: INR 0.93 (0.9-1.1); Prothrombin Time 10.4 seconds (10.1-12.5)
--- NOTE | 2024-10-10 12:46 | PC.NURSE ---
food tray requested for pt
[2024-10-10 14:06] LABS: Troponin I < 0.01 ng/ml (0.00-0.034)
[2024-10-10] MEDS: XARELTO 15MG THP 1 PACKET PAK PO (14:23)
--- NOTE | 2024-10-10 15:52 | CARE MANAGER ---
Entered Jose on covermymeds and no PA required. Spoke with Reynold in [facility] and they state it went through no charge for patient.
== END 2024-10-10 14:40 | disposition home or self-care (01) ==
PROVIDERS: Emergency Provider Student in an Organized Health Care Education/Training Program; PCP Family Medicine
DX: I82.412 Acute embolism and thrombosis of left femoral vein (principal); R07.9 Chest pain, unspecified; R06.02 Shortness of breath; R00.1 Bradycardia, unspecified
CPT/HCPCS: 71045; 71275; 80053; 83880; 84484; 85025; 85610; 93005; 96374; 99285; J2270; Q9967

== ENCOUNTER 2024-10-10 19:14 | Emergency (ER) | payer MEDICAID, SELFPAY ==
--- OUTSIDE RECORDS SUMMARY | 2024-08-26 11:00 | XMS_ITS | Encounter Summary ---
Author Organization [employer] ([place], [place], [place], [place]) Address [address] [place] [address] Care Team Providers Care Tool And Die Machinist Name Role Phone Gurjit Mena MD Primary Care Provider [phone] Fausto Nieves MD Unavailable [phone] Reason for Visit * Consultation (Routine) - Authorized Specialty Diagnoses / Procedures Referred By William mata Referred To Contact Physical Therapy Diagnoses Status post left knee replacement Fausto Nieves MD [address] [place] [address] Phone: tel: fax: Referral ID Status Reason Start Date Expiration Date Visits Requested Visits Authorized [id number] Authorized Specialty Services Required 08/26/2024 10/25/2024 6 6 Encounter Details Date Type Department Care Team (Late st Contact Info) Description 08/26/2024 11:00 AM EDT Treatment [facility] OP Physical Therapy [address] [place] [phone] Tejas Richard, PT Status post left knee [...] Do you speak a language other than [place] at [place]? No 06/21/2024 Do you want help with [...] the below stated problems/goals, using Therapeutic Exercise (35044), Therapeutic Activity (88119), Gait Training (20451), Manual Therapy (59950), Neuromuscular Re- education (86850), and Hot/Cold Packs 1x/Day. Skilled intervention required [...] questions, Pt/CG demonstrated carry-over, and Handouts provided Nursing Home Goals: Patient will demonstrate 4+/5 L knee [...] Description 11/23/2024 10:00 AM EDT Office Visit [facility] Orthopedics - [address] [phone] Fausto Nieves MD [address] [place] [address] documented as of this encounter Visit Diagnoses Diagnosis Status post left knee replacement with ANNA- Primary documented in this encounter Care Teams Tool And Die Machinist Relationship Specialty Start Date End Date Gurjit Mena MD [address] [place] [facility] [address] [place] [address] PCP - General Family Medicine 06/17/24 Fausto Nieves MD [address] [place] [address] Orthopedic Surgery 06/30/24 documented as of this encounter
--- OUTSIDE RECORDS SUMMARY | 2024-08-29 19:35 | XMS_ITS | Encounter Summary ---
Author Organization [place] [address] Care Team Providers Care Electrolytic Etcher Name Role Phone Mandeep Beckham Primary Care Provider [phone] Reason for Visit * Reason Comments Fall Slipped and fell on L knee; hx knee replacement to same knee in June Encounter Details Date Type Department Care Team (Late st Contact Info) Description 08/29/2024 7:35 PM EDT - 08/29/2024 9:29 PM EDT Emergency [facility] Emergency [address] [place] [address] Roc Darden MD 1 [place] [address] Fall, initial encounter (Primary Dx); [...] Never 08/15/2022 How often do you attend [facility] or taoist services? Never 08/15/2022 Do you belong to any clubs o r organizations such as adventist groups, unions, fraternal or athletic groups, or [...] Date Recorded PHQ-2 Total Score 2 08/17/2022 [facility] Occupat ional Health - Occupational Stress [...] place to sleep or slept in a [facility]p (including now)? 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 * Managing acute pain at home (Cymro) documented in this encounter Medications at Time [...] ipratropium (ATROVENT) 21 mcg (0.03 %) Nasl [place], Non-AerosolIndicatio ns:Subacute cough 2 Sprays by Nasal route 3 times daily. 30 mL 2 03/11/2023 meloxicam (MOBIC) 15 mg Oral TabletIndications:Ac [place] pain of left knee Take 1 Tablet [...] Means Destination Comment s Home or Self [facility] documented in this encounter ED Notes * [...] documented as of this encounter Care Teams Electrolytic Etcher Relationship Specialty Start Date End Date Mandeep Beckham DO [address] [place] [address] PCP - General Family Medicine 01/28/23 documented as of this encounter
--- OUTSIDE RECORDS SUMMARY | 2024-10-08 09:15 | XMS_ITS | Encounter Summary ---
Author Organization [employer] ([place], [place], [place], [place]) Address [address] [place] [address] Care Team Providers Care Wafer Polishing Lead Worker Name Role Phone Gurjit Mena MD Primary Care Provider [phone] Fausto Nieves MD Unavailable [phone] Reason for Visit * Reason Comments Knee Pain Left Encounter Details Date Type Department Care Team (Late st Contact Info) Description 10/08/2024 9:15 AM EDT Office Visit [facility] Orthopedics - [address] [phone] Ermias Obando PA-C [address] [place] [address] S/P total knee arthroplasty, left (Primary [...] your living situation today? I have a [facility] place to live 06/21/2024 Think about [...] Do you speak a language other than Nepali at ho me? No 06/21/2024 Do you [...] Description 11/23/2024 10:00 AM EDT Office Visit [facility] Orthopedics - [address] [phone] Fausto Nieves MD [address] [place] [address] Pending Results Name Type Priority Associated [...] encounter documented in this encounter Care Teams Wafer Polishing Lead Worker Relationship Specialty Start Date End Date Gurjit Mena MD [address] [place] [address] PCP - General Family Medicine 06/17/24 Fausto Nieves MD [address] [place] [address] Orthopedic Surgery 06/30/24 documented as of this encounter
--- OUTSIDE RECORDS SUMMARY | 2024-10-08 10:00 | XMS_ITS | Encounter Summary ---
Author Organization [employer] ([place], [place], [place], [place]) Address [address] [place] [address] Care Team Providers Care Digestion Operator Name Role Phone Gurjit Mena MD Primary Care Provider [phone]- [phone] Fausto Nieves MD Unavailable [phone] Encounter Details Date Type Department Care Team (Late st Contact Info) Description 10/08/2024 10:00 AM EDT Ancillary Procedure [facility] Orthopedics - [address] [address] Ermias Obando PA-C [address] [place] [address] Arrived Social History Tobacco Use Types [...] speak a language other than Croatian at [facility]? No 06/21/2024 Do you want help [...] Description 11/23/2024 10:00 AM EDT Office Visit [facility] Orthopedics - [address] [address] Fausto Nieves MD [address] [place] [address] Pending Results Name Type Priority Associated Diagnoses Date /Time XR knee 1 or 2 views left Imaging Routine S/P total knee arthroplasty, left Left knee pain 10/08/2024 10:01 AM EDT documented as of this encounter Visit Diagnoses Not on filedocumented in this encounter Care Teams Digestion Operator Relationship Specialty Start Date End Date Gurjit Mena MD [address] [place] [facility] [address] [place] [address] PCP - General Family Medicine 06/17/24 Fausto Nieves MD [address] [place] [address] Orthopedic Surgery 06/30/24 documented as of this encounter
--- OUTSIDE RECORDS SUMMARY | 2024-10-08 20:20 | XMS_ITS | Encounter Summary ---
Author Organization [email or web address] ([place], [place], [place], [place]) Address [address] [place] [address] Care Team Providers Care Vocational Rehabilitation Technician Name Role Phone Gurjit Mena MD Primary Care Provider [phone] Fausto Nieves MD Unavailable [phone] Reason for Visit * Reason Comments Leg Pain Swelling to left kne w with pain 10/27. Denies any injury Encounter Details Date Type Department Care Team (Late st Contact Info) Description 10/08/2024 8:20 PM EDT - 10/08/2024 10:35 PM EDT Emergency [facility] Emergency Department [address] [place] [phone] Som Crowe DO [address] [id number] Nausea and vomiting, unspecified vomiting type (Primary Dx); Chronic knee pain after total replacement of left knee joint Discharge Disposition: Home or Self Care Social [...] Do you speak a language other than [place] at [place]? No 06/21/2024 Do you want help with [...] Sign Reading Time Taken Comments Blood Pressure 122/69 10/08/2024 10:20 PM EDT Pulse 52 10/08/2024 10:20 PM EDT Temperature 37.1 C (98.8 F) 10/08/2024 8:28 PM EDT Respiratory Rate 18 10/08/2024 10:20 PM EDT Oxygen Saturation 97% 10/08/2024 10:20 PM EDT Inhaled Oxygen Concentration - - Weight 97.5 kg (215 lb) 10/08/2024 8:28 PM EDT Height 170.2 cm (5' 7 ) 10/08/2024 8:28 PM EDT Body Mass Index 33.67 10/08/2024 8:28 PM EDT documented in this encounter Discharge Instructions * Attachments The following attachments cannot be sent through Care Everywhere. * Nausea and Vomiting Adult [id number] (Chinese) documented in this encounter Medications at Time [...] by mouth daily ( Stress formula ). ondansetron (ZOFRAN-ODT) 4 MG disintegrating tablet Take 1 tablet (4 mg total) by mouth every 4 (four) hours as needed for nausea or vomiting for up to 7 days. 20 tablet 10/08/2024 5 traZODone (DESYREL) 100 MG tablet Take 2 tablets (200 mg total) by mouth every night as needed. Ventolin HFA 90 mcg/actuation inhaler Inhale 2 puffs by mouth every 4 (four) hours as needed for shortness of breath or wheezing. documented as of this encounter ED Notes * Goldie Husain PA-C - 10/08/2024 8:26 PM EDT Images from the original note were not included. Subjective Chief Complaint: Leg Pain (Swelling to left knew with pain 10/27. Denies any injury) Ran Ayala is a 48-year-old female presenting to emergency room with complaint of left knee painand nausea and vomiting. Patient reports her left knee has been hurting her ever since she had it replaced in June. She denies any new traumatic injury. She does endorse going to her orthopedic officetoday and had x-rays performed. Medical records show that x-rays were negative for their office. She states is a burning sensation on the entire knee. Denied any twisting or fall since her orthopedicoffice visit. She also complains of nausea and vomiting that started after dinner tonight. She denies fever or chills. She denies diarrhea. History provided by: Patient healthcare interpreter used: No Patient History Past Medical History: Diagnosis Date Anxiety Bradycardia Migraine FARHEEN on CPAP Past Surgical History: Procedure Laterality Date BREAST SURGERY duct removal CARDIAC SURGERY loop recorder CARPAL TUNNEL RELEASE Left SECTION x3 HYSTERECTOMY KNEE OPEN LATERAL RELEASE Bilateral multiple MAKOPLASTY,KNEE Left 06/21/2024 Procedure: ARTHROPLASTY, KNEE, ROBOT-ASSISTED; Surgeon: Fausto Nieves MD; Location: [facility]; Service: Orthopedic Surgery; Laterality: Left; Family History [...] Systems Review of Systems Constitutional: Negative for chills and fever. Gastrointestinal: Positive for nausea and vomiting. Negative for diarrhea. Musculoskeletal: Positive for arthralgias. Left knee pain All other systems reviewed and are negative. Physical Exam ED Triage Vitals Encounter Vitals Group BP Systolic BP Percentile Diastolic BP Percentile Pulse Resp Temp Temp src SpO2 Weight Height Head Circumference Peak Flow Pain Score Pain Loc Pain Education Exclude from Growth Chart Physical Exam Vitals and nursing note reviewed. Constitutional: Appearance: Normal appearance. HENT: Head: Atraumatic. Nose: Nose normal. Eyes: Extraocular Movements: Extraocular movements intact. Pupils: Pupils are equal, round, and reactive to light. Cardiovascular: Rate and Rhythm: Normal rate and regular rhythm. Heart sounds: Normal heart sounds. Pulmonary: Effort: Pulmonary effort is normal. Breath sounds: Normal breath sounds. Abdominal: General: Bowel sounds are normal. Palpations: Abdomen is soft. Tenderness: There is no abdominal tenderness. Musculoskeletal: General: Tenderness present. Normal range of motion. Cervical back: Full passive range of motion without pain and normal range of motion. Legs: Skin: General: Skin is warm and dry. Findings: No erythema. Neurological: Mental Status: She is alert and oriented to person, place, and time. Mental status is at baseline. Psychiatric: Mood and Affect: Mood normal. Behavior: Behavior normal. Neurological Exam Mental Status Alert. Oriented to person, place, and time. Cranial Nerves CN III, IV, : Extraocular movements intact bilaterally. Pupils equal round and reactive to light bilaterally. Ortho Exam ED Course & MDM Medications sodium chloride 0.9% (NS) bolus (0 mLs intravenous Stopped 10/08/242211) famotidine injection 20 mg (20 mg intravenous Given 10/08/242106) ondansetron (ZOFRAN) injection 4 mg (4 mg intravenous Given 10/08/242106) ketorolac (TORADOL) injection 15 mg (15 mg intravenous Given 10/08/242106) Results for orders placed or performed during the hospital encounter of 10/08/24 CBC with Auto Diff Result Value Ref Range WBC 8.3 4.8 - 10.8 K/??L RBC 4.10 3.50 - 5.20 M/??L Hemoglobin 12.8 11.7 - 15.8 GM/DL Hematocrit 37.0 35.0 - 47.0 % MCV 90 81 - 101 fL MCH 31.2 27.0 - 34.0 pg MCHC 34.6 32.0 - 36.0 GM/DL RDW 12.4 11.5 - 14.5 % Platelets 263 150 - 400 K/CU MM MPV 10.3 9.4 - 12.4 fL Nucleated Red Blood Cell 0.0 0 - 0.2 % % Neutros 60 37 - 80 % % Lymphs 32 10 - 50 % % Monos 6 5 - 13 % % Eos 2 0 - 7 % % Baso 1 0 - 3 % NRBC Absolute <0.01 0 - 0.012 K/ul # Neutros 4.98 2.00 - 6.90 K/??L # Lymphs 2.62 0.60 - 3.40 K/??L # Monos 0.48 0.00 - 0.90 K/??L # Eos 0.17 0.00 - 0.70 K/??L # Baso 0.04 0.00 - 0.20 K/??L Immature Granulocytes-Relative 0.20 % # IG 0.02 (H) 0.00 - 0.00 K/uL Comprehensive metabolic panel Result Value Ref Range Sodium 138 136 - 145 meq/L Potassium 3.6 3.5 - 5.1 meq/L Chloride 103 98 - 107 meq/L CO2 29 21 - 32 meq/L Calcium 8.7 8.5 - 10.1 mg/dL Glucose 84 74 - 100 mg/dL BUN 9 7 - 18 mg/dL Creatinine 0.97 0.55 - 1.10 mg/dL BUN/Creatinine 9 Albumin 3.4 3.4 - 5.0 g/dL Alkaline Phosphatase 85 46 - 116 U/L ALT 20 12 - 78 U/L AST 14 (L) 15 - 37 U/L Total Bilirubin 0.3 0.2 - 1.0 mg/dL Protein, Total 6.8 6.4 - 8.2 gm/dL Anion Gap 10 (L) 11 - 22 A/G Ratio 1.0 Globulin 3.4 g/dL Osmolality Calc 273.6 mOsm/kg eGFR (mL/min/1.73m2) >60 >=60 mL/min/1.73m2 Lipase Result Value Ref Range Lipase 16 16 - 77 U/L High Sensitivity Troponin I Result Value Ref Range Troponin I High Sensitivity (pg/mL) 15.6 4 - 60.3 pg/mL US DOPPLER VENOUS LEG LEFT (Results Pending) ED Course as of 10/08/242226Oct 08, 20242049 Som Crowe DO: I saw the patient [id number]. I performed a substantive portion of the MDM.[JEFF] 2141 EKG reviewed and interpreted by myself My interpretation sinus rhythm, rate 48, no acute ST elevation [JEFF] ED Course User Index [JEFF] Som Crowe DO Procedures Medical Decision Making Patient's vital signs been stable in the emergency department. Lab work is reassuring with no elevation of white blood cell count, hemoglobin and hematocrit are stable, troponin is not elevated, lipase is not elevated, there are no acute concerning abnormalities on CMP. Ultrasound of the left leg was ordered showed no DVT. Advised patient continue her home medications and treatment plan as given by Ortho today. Patient was given Zofran and famotidine for nausea and vomiting will prescribe for patient advised follow-up with PCP and return to the emergency department new or worsening symptoms Amount and/or Complexity of Data Reviewed Labs: ordered. Decision-making details documented in ED Course. Radiology: ordered. Decision-making details documented in ED Course. ECG/medicine tests: ordered and independent interpretation performed. Details: EDMD Risk Prescription drug management. Assessment & Plan Clinical Impression Diagnosis Comment Added By Time Added Nausea and vomiting, unspecified vomiting type Goldie Husain PA-C 10/08/2024 10:26 PM Chronic knee pain after total replacement of left knee joint Goldie Husain PA-C 10/08/2024 10:27 PM Disposition Discharge [1] - 10/08/2024 10:25 PM Current Discharge Medication List START taking these medications Details ondansetron (ZOFRAN-ODT) 4 MG disintegrating tablet Take 1 tablet (4 mg total) by mouth every 4 (four) hours as needed for nausea or vomiting for up to 7 days. Qty: 20 tablet, Refills: 0 Contact information for follow-up Gurjit Mena MD Specialty: Family Medicine Relationship: PCP - General [address] [place] [address] [facility] [address] Next Steps: Follow up [facility] Emergency Department Specialty: Emergency Medicine [address] [facility] [address] Next Steps: Follow up documented in this encounter Plan of Treatment Upcoming Encounters Date Type Department Care Team (Late st Contact Info) Description 11/23/2024 10:00 AM EDT Office Visit [facility] Orthopedics - [address] [address] Fausto Nieves MD [address] [place] [phone] documented as of this encounter Procedures Procedure Name Priority Date/Time Associated Diagnosis Comments US DOPPLER VENOUS LEG LEFT STAT 10/08/2024 10:11 PM EDT FS_MODEL_IP_ECG 12-LEAD STAT 10/08/2024 9:31 PM EDT CBC W/ AUTO DIFF STAT 10/08/2024 8:56 PM EDT HIGH SENSITIVITY TROPONIN I Add-On 10/08/2024 8:56 PM EDT LIPASE STAT 10/08/2024 8:56 PM EDT COMPREHENSIVE METABOLIC PANEL STAT 10/08/2024 8:56 PM EDT documented in this encounter Results * US DOPPLER VENOUS LEG LEFT (10/08/2024 10:11 PM EDT) Anatomical Region Laterality Modality Lower Extremity Ultrasound 10/09/2024 12:1 7 AM EDT Impressions 10/09/2024 12:17 AM EDT 1. Negative for left lower extremity deep vein thrombosis. Authenticated and Narrative 10/09/2024 12:17 AM EDT FINAL REPORT TECHNIQUE: null CLINICAL HISTORY: LEG PAIN left knee pain and swelling, s/p knee sx x 3 months ago COMPARISON: null FINDINGS: Venous duplex ultrasound left lower extremity Comparison: None provided Findings: The visualized deep veins are fully compressible with normal Doppler color flow and spectral tracings. No popliteal cyst. Procedure Note Citlali Law MD - 10/09/2024 FINAL REPORT TECHNIQUE: null CLINICAL HISTORY: LEG PAIN left knee pain and swelling, s/p knee sx x 3 months ago COMPARISON: null FINDINGS: Venous duplex ultrasound left lower extremity Comparison: None provided Findings: The visualized deep veins are fully compressible with normal Doppler color flow and spectral tracings. No popliteal cyst. IMPRESSION: 1. Negative for left lower extremity deep vein thrombosis. Authenticated and us Som Crowe DO CV VASCULAR ORDERABLES Final Res ult * ECG 12 lead (10/08/2024 9:31 PM EDT) VENTRICULAR RATE EKG/MIN 48 BPM GE MUSE ATRIAL RATE (MCT) 48 BPM GE MUSE OR Interval 198 ms GE MUSE QRS-INTERVAL (MSEC) 100 ms GE MUSE QT Interval 510 ms GE MUSE QTC Interval 455 ms GE MUSE P [place] 60 degrees GE MUSE R AXIS (MCT) 19 degrees GE MUSE T Wave [place] 20 degrees GE MUSE [place] Diagnosis Sinus bradycardia Low voltage QRS Cannot rule out Anterior infarct , age undetermined Abnormal ECG Confirmed by Emigdio CRUZ RICHARD ([id number]) on 10/09/2024 2:47:07 PM GE MUSE 10/08/2024 9:31 PM EDT 10/09/2024 2:47 PM EDT [employer] DO ECG ORDERABLES Final Result Performing Organization Address [facility] [[email or web address]] de Phone Number GE MUSE * High Sensitivity Troponin I (10/08/2024 8:56 PM EDT) Pathologist [facility] Troponin I High Sensitivity (pg/mL) 15.6 4 - 60.3 pg/mL 10/08/2024 9:26 PM EDT [facility] Comment: Troponin Result (pg/mL) *Interpretation 4-60.3 *Normal; less than 99th percentile of normal range >60.3 *Abnormal; greater than 99th percentile of normal range Biotin specimen concentration >300 ng/mL may lead to falsely depressed results for patient samples. Do not use this test for renal dysfunction patients (eGFR <60) unless it is confirmed that the patient is not taking Biotin. Blood Venipuncture / Unknown 10/08/2024 8:56 PM EDT 10/08/2024 8:59 PM EDT [employer] DO LAB BLOOD ORDERABLES Final Resul t Performing Organization Address City/[facility]/ZIP Co de Phone Number [facility] [address] [place] [address] * Lipase (10/08/2024 8:56 PM EDT) Pathologist [facility] Lipase 16 16 - 77 U/L 10/08/2024 9:26 PM EDT [facility] Blood Venipuncture / Unknown 10/08/2024 8:56 PM EDT 10/08/2024 8:59 PM EDT Koby Ramesh PA-C LAB BLOOD ORDERABLES Fi nal Result [facility] [address] [phone] * (ABNORMAL) Comprehensive metabolic panel (10/08/2024 8:56 PM EDT) Sodium 138 136 - 145 meq/L 10/08/2024 9:26 PM EDT [facility] Potassium 3.6 3.5 - 5.1 meq/L 10/08/2024 9:26 PM EDT [facility] Chloride 103 98 - 107 meq/L 10/08/2024 9:26 PM EDT [facility] CO2 29 21 - 32 meq/L 10/08/2024 9:26 PM EDT [facility] Calcium 8.7 8.5 - 10.1 mg/dL 10/08/2024 9:26 PM EDT [facility] Glucose 84 74 - 100 mg/dL 10/08/2024 9:26 PM EDT [facility] BUN 9 7 - 18 mg/dL 10/08/2024 9:26 PM EDT [facility] Creatinine 0.97 0.55 - 1.10 mg/dL 10/08/2024 9:26 PM EDT [facility] BUN/Creatinine 9 10/08/2024 9:26 PM EDT [facility] Albumin 3.4 3.4 - 5.0 g/dL 10/08/2024 9:26 PM EDT [facility] Alkaline Phosphatase 85 46 - 116 U/L 10/08/2024 9:26 PM EDT [facility] ALT 20 12 - 78 U/L 10/08/2024 9:26 PM EDT [facility] AST 14(L) 15 - 37 U/L 10/08/2024 9:26 PM EDT [facility] Total Bilirubin 0.3 0.2 - 1.0 mg/dL 10/08/2024 9:26 PM EDT [facility] Protein, Total 6.8 6.4 - 8.2 gm/dL 10/08/2024 9:26 PM EDT [facility] Anion Gap 10(L) 11 - 22 10/08/2024 9:26 PM EDT [facility] A/G Ratio 1.0 10/08/2024 9:26 PM EDT [facility] Globulin 3.4 g/dL 10/08/2024 9:26 PM EDT [facility] Osmolality Calc 273.6 mOsm/kg 9:26 PM EDT [facility] eGFR (mL/min/1.73m2) >60 >=60 mL/min/1.7 3m2 10/08/2024 9:26 PM EDT [facility] Comment:ESTIMATED GFR IS NOT ACCURATE CREATININE CLEARANCE IN PREDICTING GLOMERULAR FILTRATION RATE. ESTIMATED GFR IS NOT APPLICABLE FOR DIALYSIS PATIENTS. Blood Venipuncture / Unknown 10/08/2024 8:56 PM EDT 10/08/2024 8:59 PM EDT Koby Ramesh PA-C LAB BLOOD ORDERABLES Fi nal Result [facility] [address] [place] [address] * (ABNORMAL) CBC with Auto Diff (10/08/2024 8:56 PM EDT) WBC 8.3 4.8 - 10.8 K/ L 10/08/2024 9:08 PM EDT [facility] RBC 4.10 3.50 - 5.20 M/ L 10/08/2024 9:08 PM EDT [facility] Hemoglobin 12.8 11.7 - 15.8 GM/DL 10/08/2024 9:08 PM EDT [facility] Hematocrit 37.0 35.0 - 47.0 % 10/08/2024 9:08 PM EDT [facility] MCV 90 81 - 101 fL 10/08/2024 9:08 PM EDT [facility] MCH 31.2 27.0 - 34.0 pg 10/08/2024 9:08 PM EDT [facility] MCHC 34.6 32.0 - 36.0 GM/DL 10/08/2024 9:08 PM EDT [facility] RDW 12.4 11.5 - 14.5 % 10/08/2024 9:08 PM EDT [facility] Platelets 263 150 - 400 K/CU MM 10/08/2024 9:08 PM EDT [facility] MPV 10.3 9.4 - 12.4 fL 10/08/2024 9:08 PM EDT [facility] Nucleated Red Blood Cell 0.0 0 - 0.2 % 10/08/2024 9:08 PM EDT [facility] % Neutros 60 37 - 80 % 10/08/2024 9:08 PM EDT [facility] % Lymphs 32 10 - 50 % 10/08/2024 9:08 PM EDT [facility] % Monos 6 5 - 13 % 10/08/2024 9:08 PM EDT [facility] % Eos 2 0 - 7 % 10/08/2024 9:08 PM EDT [facility] % Baso 1 0 - 3 % 10/08/2024 9:08 PM EDT [facility] NRBC Absolute <0.01 0 - 0.012 K/ul 10/08/2024 9:08 PM EDT [facility] # Neutros 4.98 2.00 - 6.90 K/ L 10/08/2024 9:08 PM EDT [facility] # Lymphs 2.62 0.60 - 3.40 K/ L 10/08/2024 9:08 PM EDT [facility] # Monos 0.48 0.00 - 0.90 K/ L 10/08/2024 9:08 PM EDT [facility] # Eos 0.17 0.00 - 0.70 K/ L 10/08/2024 9:08 PM EDT [facility] # Baso 0.04 0.00 - 0.20 K/ L 10/08/2024 9:08 PM EDT [facility] Immature Granulocytes-Re lative 0.20 % 10/08/2024 9:08 PM EDT [facility] # IG 0.02(H) 0.00 - 0.00 K/uL 10/08/2024 9:08 PM EDT [facility] Blood Venipuncture / Unknown 10/08/2024 8:56 PM EDT 10/08/2024 8:59 PM EDT Narrative [facility] - 10/08/2024 9:08 PM EDT When CBC w/ Auto Diff is ordered the lab will add a Manual Differential as a quality check at no additional charge if: Lymphocytes greater than seventy five percent with normal or increased WBC Monocytes greater than Fifteen percent Basophil greater than four percent Bands >10% or several immature myeloids are seen on scan Blast? Flag noted Atypical Lymph flag noted Koby Ramesh PA-C LAB BLOOD ORDERABLES Fi nal Result [facility] [address] [place] [address] documented in this encounter Visit Diagnoses Diagnosis Nausea and vomiting, unspecified vomiting type- Primary Chronic knee pain after total replacement of left knee joint documented in this encounter Administered Medications Inactive Administered Medications - up to 3 most recent administrations Medication Order MAR Action Action Date Dose Rate Site famotidine injection 20 mg 20 mg Once, intravenous, On Fri10/08/24 at 2034, For 1 dose, Pharmacist to renally dose if CrCl is less than 50 mL/min or on CRRT. Given 10/08/2024 9:07 PM EDT 20 mg ketorolac (TORADOL) injection 15 mg 15 mg Once, intravenous, On Fri10/08/24 at 2034, For 1 dose Given 10/08/2024 9:07 PM EDT 15 mg ondansetron (ZOFRAN) injection 4 mg 4 mg Once, intravenous, On Fri10/08/24 at 2034, For 1 dose, For IV push, give over 2 - 5 minutes. Given 10/08/2024 9:07 PM EDT 4 mg sodium chloride 0.9% (NS) bolus 1,000 mL Once, intravenous, Administer over 60 Minutes, On Fri10/08/24 at 2034, For 1 dose New Bag 10/08/2024 9:08 PM EDT 1,000 mLs 1000 mL/hr documented in this encounter Active and Recently Administered Medications Times are shown in EDT. Scheduled Medication Order 10/06/2024 10/07/2024 10/08/2024 famotidine injection 20 mg (COMPLETED) 20 mg Once, intravenous, On Fri10/08/24 at 2034, For 1 dose, Pharmacist to renally dose if CrCl is less than 50 mL/min or on CRRT. 2106 (Given - Provid er: Ozzy Betancourt) ketorolac (TORADOL) injection 15 mg (COMPLETED) 15 mg Once, intravenous, On Fri10/08/24 at 2034, For 1 dose 2106 (Given - Provid er: Ozzy Betancourt) ondansetron (ZOFRAN) injection 4 mg (COMPLETED) 4 mg Once, intravenous, On Fri10/08/24 at 2034, For 1 dose, For IV push, give over 2 - 5 minutes. 2106 (Given - Provid er: Ozzy Betancourt) sodium chloride 0.9% (NS) bolus (COMPLETED) 1,000 mL Once, intravenous, Administer over 60 Minutes, On Fri10/08/24 at 2034, For 1 dose 2107 (New Bag - Prov ider: Ozzy Betancourt)2211 (Stopped - Provider: Ozzy Betancourt) documented in this encounter Care Teams Vocational Rehabilitation Technician Relationship Specialty Start Date End Date Gurjit Mena MD [address] [place] [address] [facility] [address] PCP - General Family Medicine 06/17/24 Fausto Nieves MD [address] [place] [address] Orthopedic Surgery 06/30/24 documented as of this encounter
[2024-10-10 19:22] VITALS: BP 115/66; PULSE 61; RESP 20; TEMP 37; O2SAT 95; BMI 38.0
--- OUTSIDE RECORDS SUMMARY | 2024-10-10 19:24 | XMS_ITS | Clinical Summary ---
Author Organization [facility] Address [address] [place] [address] Phone Care Team Providers Care Paste Up Copy Camera Operator Name Role Phone Mandeep Beckham DO Primary Care Provider [phone] Allergies Active Allergy Reactions Criticality Noted Date [...] ipratropium (ATROVENT) 21 mcg (0.03 %) Nasl [place], Non-AerosolIndicat ions:Subacute cough 2 Sprays by Nasal [...] report completed 07/05/2022 Informed consent signed 07/05/[id number] Whitaker Controlled Medication Agreement signed 03/11/22 [...] (03/06/2022): Added automatically from request for surgery [id number] Screening for colon cancer 03/06/2022 0 07/03/2022 Overview (05/20/2022): Added automatically from request for surgery [id number] Chondromalacia of left patella 11/24/2020 02/22/2021 Overview (11/24/2020): Added automatically from request for surgery [id number] Patellar tracking disorder of left knee 11/10/2020 02/22/2021 Chondromalacia of right patella 08/10/2020 02/22/2021 Overview (08/10/2020): Added automatically from request for surgery [id number] Swelling of right knee joint 08/10/2020 02/22/2021 Overview (08/10/2020): Added automatically from request for surgery [id number] Patella, chondromalacia, right 08/09/2020 02/22/2021 Effusion of right knee 08/09/202002/22 Maltracking of right patella 08/09/2020 03/28/2022 Class 3 severe obesity witho ut serious comorbidity in adult 04/27/2020 03/28/2022 Chest pain 12/01/2019 06/04/2021 Psoriasis 09/24/2018 03/28/2022 Chronic abdominal pain 12/04/201703/28 History of AL (myocardial infarction) 12/01/2019 Nausea and vomiting 07/04/19 23 Encounters Date Type Department Care Team Description 08/29/2024 7:35 PM EDT - 08/29/2024 9:29 PM EDT Emergency [facility] [address] [place] [address] Roc Darden MD Fall, initial encounter (Primary [...] RETINACULAR LENGTHENING; Surgeon: Isaias Dumont MD; Location: [facility]; Service: Orthopedics ULNAR TUNNEL RELEASE 08/29/2021 Arm/Elbow/Right Right Cubital Tunnel Release; Surgeon: Ozzy Concepcion MD; Location: [facility]; Service: Orthopedics CARPAL TUNNEL RELEASE 09/19/2021 Hand/Wrist/Left Left Cubital Tunnel Release and left carpal tunnel release; Surgeon: Ozzy Concepcion MD; Location: [facility]; Service: Orthopedics THYROIDECTOMY 07/12/2022 Right Right Jason Thyroidectomy; Surgeon: Alessandro Faith MD; Location: [facility] MAIN OR; Service: ENT ULNAR TUNNEL RELEASE 12/12/2022 Arm/Elbow/Left Left cubital tunnel release revision and transposition; Surgeon: Ramses Puentes MD; [facility]; Service: Orthopedics ULNAR TUNNEL RELEASE 12/12/2022 Arm/Elbow Surgeon: Ramses Puentes MD; [facility]; Service: Orthopedics ULNAR TUNNEL RELEASE 01/14/2023 Arm/Elbow/Right Right Cubital Tunnel Release with transposition; Surgeon: Ramses Puentes MD; Location: [facility]; Service: Orthopedics COLONOSCOPY KNEE ARTHROSCOPY 08/04/2023 Knee/Left LEFT KNEE ARTHROSCOPY partial lateral meniscus repair, medial meniscus root repair; Surgeon: Cesar Ellis MD; [facility]; Service: Orthopedics Medical devices from [...] g 4-8 Asthma Cardiac dysrhythmia tachycardia Meningioma ([facility]) 2023 Gastroparesis Esophageal dysphagia Family History Medical [...] Never 08/15/2022 How often do you attend [facility] or amish services? 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 Not on file Not on file Not [...] Stay Tobacco Free Lifestyle No [facility] Implanted Type Area Trimmer Meat Device Identifier Shelf Expiration Date Model / Serial / Lot Loop Recorder-12/02 Implanted:11/17 (Quantity not on file) Left: Chest Button Sut 4mm Endbttn 20mm Lf F/Acl/Pcl Recon - [id number] Implanted:Qty: 1 on 08/04/2023 by Cesar Ellis MD at [facility] Left: Knee [employer]:ENDO 10/03/2027 [id number] / / [id number] Procedures Procedure Name Priority Date/Time Associated Diagnosis [...] EST Impressions 03/31/2023 3:16 PM EST Negative (DLB-Qarqvdso-9) ~ RECOMMENDATION: Routine screening mammogram in 1 [...] the next mammogram, in accordance with the [employer] and the Society of Breast Imaging recommendations. Narrative 03/31/2023 3:16 PM EST Procedure:MM MAMMO DIGITAL FAITH SCREEN BILAT ~ Reason for exam: screening, asymptomatic. Z12.31-Encounter for screening mammogram for malignant neoplasm of nrpfdz-GDG-46-CM ~ MM MAMMO DIGITAL FAITH SCREEN BILAT [...] for screening mammogram for malignant neoplasm of zulagj-THW-09-CM ~ MM MAMMO DIGITAL FAITH SCREEN BILAT Bilateral CC and MLO view(s) were taken. Technologist: Nico Delgadillo, RT(R)(M) The breast tissue is heterogeneously dense. This may lower thesensitivity of mammography. Prior study comparison: Compared with prior studies the most recentbeing 02/18/22, 01/08/21 No mammographic evidence of malignancy. ~ IMPRESSION: Negative (ZAS-Ektzszsu-6) ~ RECOMMENDATION: Routine screening mammogram in 1 [...] the next mammogram, in accordance with the [place] [employer] and the Society of [...] cancer Staff Staff Role Latasha Bauer RN Padding Machine Operator Eric Salazar MD Anesthesiologist Fidencio Taylor [...] of bowel preparation was evaluated using the [place] Bowel Preparation Scale with scores of: right [...] Recently Relevant to Health Maintenance Insurance [facility] [id number] [id number] Care Teams Paste Up Copy Camera Operator Relationship Specialty Start Date End Date Mandeep Beckham DO [address] [place] [address] PCP - General Family Medicine 01/28/23
--- OUTSIDE RECORDS SUMMARY | 2024-10-10 19:24 | XMS_ITS | Encounter Summary ---
Author Organization [employer] ([place], [place], [place], [place]) Address [address] [place] [address] Care Team Providers Care Computer Programming Manager Name Role Phone Marlo Leonardo Primary Care Provider [phone] Gurjit Mena MD Primary Care Provider [phone] Fausto Nieves MD Unavailable [phone] Reason for Referral * Consultation (Routine) - Closed Specialty Diagnoses / Procedures Referred By William mata Referred To Contact Neurology Diagnoses Syncope and collapse Colette Gallardo [address] [place] [address] Phone: tel: Krupa Ward MD [address] [facility] [address] [place] [address] Phone: tel: fax: Referral ID Status Reason Start Date Expiration Date V isits Requested Visits Authorized [id number] Closed Specialty Services Required 12/19/2023 12/18/2024 1 1 Encounter Details Date Type Department Care Team (Late st Contact Info) Description 12/19/[address] [facility] [address] [facility] [address] [place] [address] Colette Gallardo [place] [address] Syncope and collapse (Primary Dx) Social History [...] Description 11/23/2024 10:00 AM EDT Office Visit [facility] - [address] [address] Fausto Nieves MD [address] [place] [address] Scheduled Referrals Name Type Priority Associated Diagnoses Order Schedule Ambulatory referral to Neurology Outpatient Referral Routine Syncope and collapse Ordered: 12/19/2023 documented as of this encounter Visit Diagnoses Diagnosis Syncope and collapse- Primary documented in this encounter Care Teams Computer Programming Manager Relationship Specialty Start Date End Date endyMarlo mireles [address] [place] [address] PCP - General 12/20/22 06/16/24 Gurjit Mena MD [address] [place] [address] [place] [address] PCP - General Family Medicine 06/17/24 Fausto Nieves MD [address] [place] [address] Orthopedic Surgery 06/30/24 documented as of this encounter
--- OUTSIDE RECORDS SUMMARY | 2024-10-10 19:24 | XMS_ITS | Encounter Summary ---
Author Organization [facility] ([place], [place], [place], [place]) Address [address] [place] [address] Care Team Providers Care Jewelry Manager Name Role Phone Marlo Leonardo Primary Care Provider [phone] Gurjit Mena MD Primary Care Provider [phone] Fausto Nieves MD Unavailable [phone] Reason for Referral * Consultation (Routine) - Closed Specialty Diagnoses / Procedures Referred By William mata Referred To Contact Physical Therapy Diagnoses Other tear of medial meniscus of left knee as current injury, subsequent encounter Cesar Ellis MD [address] [id number] Phone: tel: fax: Referral ID Status Reason Start Date Expiration Date V isits Requested Visits Authorized [id number] Closed Specialty Services Required 08/19/2023 02/17/2024 20 20 Encounter Details Date Type Department Care Team (Late st Contact Info) Description 08/19/2023 Outside Orders [facility] Physical Therapy [address] [place] [phone] Cesar Ellis MD [address] [place] [address] Other tear of medial meniscus of left [...] your living situation today? I have a [facility] place to live 06/21/2024 Think about [...] Do you speak a language other than [employer] [facility] [employer] [place]? No 06/21/2024 Do you want help with [...] Description 11/23/2024 10:00 AM EDT Office Visit [facility] - [address] [address] Fausto Nieves MD [address] [place] [address] Scheduled Referrals Name Type Priority Associated [...] Primary documented in this encounter Care Teams Jewelry Manager Relationship Specialty Start Date End Date Marlo Leonardo [address] [place] [address] PCP - General 12/20/22 06/16/24 Gurjit Mena MD [address] [place] [facility] [address] [address] PCP - General Family Medicine 06/17/24 Fausto Nieves MD [address] [place] [address] Orthopedic Surgery 06/30/24 documented as of this encounter
--- OUTSIDE RECORDS SUMMARY | 2024-10-10 19:25 | XMS_ITS | Encounter Summary ---
Author Organization [employer] ([place], [place], [place], [place]) Address [address] [place] [address] Care Team Providers Care Development Associate Name Role Phone Gurjit Mena MD Primary Care Provider [phone] Fausto Nieves MD Unavailable [phone] Encounter Details Date Type Department Care [...] Do you speak a language other than [place] at [facility]? No 06/21/2024 Do you want help [...] Description 11/23/2024 10:00 AM EDT Office Visit [facility] - [address] [address] Fausto Nieves MD [address] [place] [address] documented as of this encounter Visit Diagnoses Not on filedocumented in this encounter Care Teams Development Associate Relationship Specialty Start Date End Date Gurjit Mena MD [address] [facility] [address] [address] PCP - General Family Medicine 06/17/24 Fausto Nieves MD [address] [place] [address] Orthopedic Surgery 06/30/24 documented as of this encounter
--- OUTSIDE RECORDS SUMMARY | 2024-10-10 19:25 | XMS_ITS | Encounter Summary ---
Author Organization [employer] ([place], [place], [place], [place]) Address [address] [place] [address] Care Team Providers Care Field Technician Name Role Phone Gurjit Mena MD Primary Care Provider [phone] Fausto Nieves MD Unavailable [phone] Encounter Details Date Type Department Care [...] language other than [place] [facility]? No 06/21/2024 Do you want help with [...] Description 11/23/2024 10:00 AM EDT Office Visit [facility] - [address] [address] Fausto Nieves MD [address] [place] [address] documented as of this encounter Visit Diagnoses Not on filedocumented in this encounter Care Teams Field Technician Relationship Specialty Start Date End Date Gurjit Mena MD [address] [facility] [address] [address] PCP - General Family Medicine 06/17/24 Fausto Nieves MD [address] [place] [address] Orthopedic Surgery 06/30/24 documented as of this encounter
--- OUTSIDE RECORDS SUMMARY | 2024-10-10 19:25 | XMS_ITS | Referral Summary ---
Author Organization [employer] ([place], [place], [place], [place]) Address [address] [place] [address] Care Team Providers Care Bat Boy/Girl Name Role Phone Gurjit Mena MD Primary Care Provider [phone] Fausto Nieves MD Unavailable [phone] Encounters Date Type Department Care Team Description 10/08/2024 Travel 10/08/2024 8:20 PM EDT - 10/08/2024 10:35 PM EDT Emergency [facility] Emergency Department [address] [place] [phone] Som Crowe DO Nausea and vomiting, unspecified vomiting type (Primary Dx); Chronic knee pain after total replacement of left knee joint Discharge Disposition: Home or Self Care 10/08/2024 10:00 AM EDT Ancillary Procedure [address] [address] Ermias Obando PA-C Arrived 10/08/2024 9:15 AM EDT Office Visit [address] [phone] Ermias Obando PA-C S/P total knee arthroplasty, left (Primary Dx); Left knee pain; Contusion of left knee, initial encounter 08/26/2024 Travel 08/26/2024 11:00 AM EDT Treatment [facility] OP Physical Therapy [address] [place] [phone] Tejas Richard, PT Status post left knee replacement with ANNA (Primary Dx) 08/09/2024 Travel 08/09/2024 10:15 AM EDT Treatment [facility] OP Physical Therapy [address] [place] [phone] Du You, EMBEDDED SOFTWARE ENGINEER Status post left knee replacement with ANNA (Primary Dx) 08/06/2024 Travel 08/06/2024 10:15 AM EDT Treatment [facility] OP Physical Therapy [address] [place] [phone] Du You, EMBEDDED SOFTWARE ENGINEER Status post left knee replacement with ANNA (Primary Dx) 08/02/2024 Travel 08/02/2024 10:15 AM EDT Treatment [facility] OP Physical Therapy [address] [place] [phone] Du You, EMBEDDED SOFTWARE ENGINEER Status post left knee replacement with ANNA (Primary Dx) 07/30/2024 Travel 07/30/2024 10:15 AM EDT Treatment [facility] OP Physical Therapy [address] [place] [phone] Du You, EMBEDDED SOFTWARE ENGINEER Status post left knee replacement with ANNA (Primary Dx) 07/28/2024 Travel 07/28/2024 10:15 AM EDT Treatment [facility] OP Physical Therapy [address] [place] [phone] Du You, EMBEDDED SOFTWARE ENGINEER Status post left knee replacement with ANNA (Primary Dx) 07/20/2024 Travel 07/20/2024 9:30 AM EDT Treatment [facility] OP Physical Therapy [address] [place] [phone] Murali Bear, PT Status post left knee replacement with ANNA (Primary Dx) 07/18/2024 [facility] [address] [place] [address] Fausto Nieves MD 07/15/2024 Travel 07/15/2024 8:48 PM EDT - 07/15/2024 11:00 PM EDT Emergency [facility] Emergency Department [address] [place] [address] Patti English MD Nausea with vomiting (Primary Dx); Diarrhea; Viral infection; Nausea and vomiting, unspecified vomiting type; Diarrhea, unspecified type Discharge Disposition: Home or Self Care 07/13/2024 Travel 07/13/2024 10:15 AM EDT Treatment [facility] OP Physical Therapy [address] [place] [address] Murali Bear, PT Status post [...] the past 12 months, has t he [employer], gas, oil, or water [employer] threatened to shut off services in your [...] Do you speak a language other than [place] at [facility]? No 06/21/2024 [...] Description 11/23/2024 10:00 AM EDT Office Visit [facility] Orthopedics - [address] [phone] Fausto Nieves MD [address] [place] [phone] Medical Devices Implanted Type Area Passenger Interline Clerk Device Identifier Shelf Expiration Date Model / Serial / Lot Comp Triathlopaige Michaud Sz3 5536-B-300 - [id number] Implanted:Qt y: 1 on 06/21/2024 by Fausto Nieves MD at [facility] TOTAL JOINT [employer]STRU[employer] Left: Knee LEANDER:[employer] [id number] 10/06/2028 5536-B-30 0 / / [id number] Patella Press Fit Tritanium 5552-L-299 - [id number] Implanted:Qt y: 1 on 06/21/2024 by Fausto Nieves MD at [facility] [employer]OTAL [employer] Left: Knee LEANDER:[employer] [id number] 02/17/2029 5552-L-29 9 / / [id number] Comp Fem P/A Cr Beaded Sz3 L 5517-F-301 - [id number] Implanted:Qt y: 1 on 06/21/2024 by Fausto Nieves MD at [facility] TOTAL [employer]STRU[employer] Left: Knee LEANDER:[employer] [id number] 02/07/2029 5517-F-30 1 / / [id number] Insrt Tib Bearing #3 10mm 4290-Q-009-E - [id number] Implanted:Qt y: 1 on 06/21/2024 by Fausto Nieves MD at [facility] [employer] Left: Knee LEANDER:[employer] [id number] 11/22/2028 5531-G-31 0-E / / [id number] Loop Recorder Explanted Type Area Passenger Interline Clerk Device Identifier Shelf Expiration Date Model / Serial / Lot Pin Bone [id number] Strl [id number] - [id number] Explanted:Qty: 1 on 06/21/2024 at [facility] IMPLANTS Left: Knee LEANDER:[employer] 02/25/2029 [id number] / / [id number] Pin Bone [id number] Strl [id number] - [id number] Explanted:Qty: 1 on 06/21/2024 at [facility] IMPLANTS Left: Knee LEANDER:[employer] 03/10/2029 [id number] / / [id number] Procedures Procedure Name Priority Date/Time Associated Diagnosis [...] ATRIAL RATE (MCT) 48 BPM GE MUSE [place] Interval 198 ms GE MUSE QRS-INTERVAL (MSEC) 100 ms GE MUSE QT Interval 510 ms GE MUSE QTC Interval 455 ms GE MUSE P [place] 60 degrees GE MUSE R AXIS (MCT) 19 degrees GE MUSE T Wave [place] 20 degrees GE MUSE [place] Diagnosis Sinus bradycardia Low voltage QRS Cannot [...] 10.8 K/ L 10/08/2024 9:08 PM EDT [facility] RBC 4.10 3.50 - 5.20 M/ L 10/08/2024 9:08 PM EDT [facility] Hemoglobin 12.8 11.7 - 15.8 GM/DL 10/08/2024 9:08 PM EDT [facility] Hematocrit 37.0 35.0 - 47.0 % 10/08/2024 9:08 PM EDT [facility] MCV 90 81 - 101 fL 10/08/2024 9:08 PM EDT [facility] MCH 31.2 27.0 - 34.0 pg 10/08/2024 9:08 PM EDT [facility] MCHC 34.6 32.0 - 36.0 GM/DL 10/08/2024 9:08 PM EDT [facility] RDW 12.4 11.5 - 14.5 % 10/08/2024 9:08 PM EDT [facility] Platelets 263 150 - 400 K/CU MM 10/08/2024 9:08 PM EDT [facility] MPV 10.3 9.4 - 12.4 fL 10/08/2024 9:08 PM EDT [facility] Nucleated Red Blood Cell 0.0 0 - 0.2 % 10/08/2024 9:08 PM EDT [facility] % Neutros 60 37 - 80 % 10/08/2024 9:08 PM EDT [facility] % Lymphs 32 10 - 50 % 10/08/2024 9:08 PM EDT [facility] % Monos 6 5 - 13 % 10/08/2024 9:08 PM EDT [facility] % Eos 2 0 - 7 % 10/08/2024 9:08 PM EDT [facility] % Baso 1 0 - 3 % 10/08/2024 9:08 PM EDT [facility] NRBC Absolute <0.01 0 - 0.012 K/ul 10/08/2024 9:08 PM EDT [facility] # Neutros 4.98 2.00 - 6.90 K/ L 10/08/2024 9:08 PM EDT [facility] # Lymphs 2.62 0.60 - 3.40 K/ L 10/08/2024 9:08 PM EDT [facility] # Monos 0.48 0.00 - 0.90 K/ L 10/08/2024 9:08 PM EDT [facility] # Eos 0.17 0.00 - 0.70 K/ L 10/08/2024 9:08 PM EDT [facility] # Baso 0.04 0.00 - 0.20 K/ L 10/08/2024 9:08 PM EDT [facility] Immature Granulocytes-Re lative 0.20 % 10/08/2024 9:08 PM EDT [facility] # IG 0.02(H) 0.00 - 0.00 K/uL 10/08/2024 9:08 PM EDT [facility] Blood Venipuncture / Unknown 10/08/2024 8:56 PM EDT 10/08/2024 8:59 PM EDT Narrative [facility] - 10/08/2024 9:08 PM [...] PA-C LAB BLOOD ORDERABLES Fi nal Result [facility] [address] [place] [address] * High Sensitivity Troponin I (10/08/2024 8:56 PM EDT) Troponin I High Sensitivity (pg/mL) 15.6 4 - 60.3 pg/mL 10/08/2024 9:26 PM EDT [facility] Comment: Troponin Result (pg/mL) [...] ORDERABLES Final Resul t Performing Organization Address City/[facility] Co de Phone Number [facility] [address] [place] [address] * Lipase (10/08/2024 8:56 PM EDT) Only the most recent of2 resultswithin the time period is included. Lipase 16 16 - 77 U/L 10/08/2024 9:26 PM EDT [facility] Blood Venipuncture / Unknown 10/08/2024 8:56 PM EDT 10/08/2024 8:59 PM EDT Koby Ramesh PA-C LAB BLOOD ORDERABLES Fi nal Result Performing Organization Address City/[facility]/ZIP Co de Phone Number [facility] [address] [place] [address] * (ABNORMAL) Comprehensive metabolic panel (10/08/2024 8:56 PM EDT) Sodium 138 136 - 145 meq/L 10/08/2024 9:26 PM EDT [facility] Potassium 3.6 3.5 - 5.1 meq/L 10/08/2024 9:26 PM EDT [facility] Chloride 103 98 - 107 meq/L 10/08/2024 9:26 PM EDT [facility] CO2 29 21 - 32 meq/L 10/08/2024 9:26 PM EDT [facility] Calcium 8.7 8.5 - 10.1 mg/dL 10/08/2024 9:26 PM EDT [facility] Glucose 84 74 - 100 mg/dL 10/08/2024 9:26 PM EDT [facility] BUN 9 7 - 18 mg/dL 10/08/2024 9:26 PM EDT [facility] Creatinine 0.97 0.55 - 1.10 mg/dL 10/08/2024 9:26 PM EDT [facility] BUN/Creatinine 9 10/08/2024 9:26 PM EDT [facility] Albumin 3.4 3.4 - 5.0 g/dL 10/08/2024 9:26 PM EDT [facility] Alkaline Phosphatase 85 46 - 116 U/L 10/08/2024 9:26 PM EDT [facility] ALT 20 12 - 78 U/L 10/08/2024 9:26 PM EDT [facility] AST 14(L) 15 - 37 U/L 10/08/2024 9:26 PM EDT [facility] Total Bilirubin 0.3 0.2 - 1.0 mg/dL 10/08/2024 9:26 PM EDT [facility] Protein, Total 6.8 6.4 - 8.2 gm/dL 10/08/2024 9:26 PM EDT [facility] Anion Gap 10(L) 11 - 22 10/08/2024 9:26 PM EDT [facility] A/G Ratio 1.0 10/08/2024 9:26 PM EDT [facility] Globulin 3.4 g/dL 10/08/2024 9:26 PM EDT [facility] Osmolality Calc 273.6 mOsm/kg 9:26 PM EDT [facility] eGFR (mL/min/1.73m2) >60 >=60 mL/min/1.7 3m2 10/08/2024 9:26 PM EDT [facility] Comment:ESTIMATED GFR IS NOT ACCURATE CREATININE CLEARANCE IN PREDICTING GLOMERULAR FILTRATION RATE. ESTIMATED GFR IS NOT APPLICABLE FOR DIALYSIS PATIENTS. Blood Venipuncture / Unknown 10/08/2024 8:56 PM EDT 10/08/2024 8:59 PM EDT Koby Ramesh PA-C LAB BLOOD ORDERABLES Fi nal Result Performing Organization Address City/[facility] Co de Phone Number [facility] [address] [id number], [facility] [phone] * Urinalysis, Reflex Microscopic and Culture If Indicated (07/15/2024 10:18 PM EDT) Color, UA Straw 07/15/2024 10:39 PM EDT [facility] Clarity, UA Clear 07/15/2024 10:39 PM EDT [facility] Specific [place], UA 1.020 1.002 - 1.030 07/15/2024 10:39 PM EDT [facility] pH, UA 6.0 5.0 - 9.0 07/15/2024 10:39 PM EDT [facility] Leukocytes, UA Negative Negative 07/15/2024 10:39 PM EDT [facility] Nitrite, UA Negative Negative 07/15/2024 10:39 PM EDT [facility] Protein, UA Negative Negative 07/15/2024 10:39 PM EDT [facility] Glucose, UA Negative Negative 07/15/2024 10:39 PM EDT [facility] Ketones, UA Negative Negative 07/15/2024 10:39 PM EDT [facility] Bilirubin, UA Negative Negative 07/15/2024 10:39 PM EDT [facility] Blood, UA Negative Negative 07/15/2024 10:39 PM EDT [facility] Urobilinogen, UA 0.2 mg/dL Normal 07/15/2024 10:39 PM EDT [facility] Specimen Source Urine, Clean Catch 07/15/2024 10:39 PM EDT [facility] Urine URINE SPECIMEN COLLECTION, CLEAN CATCH / Unknown 07/15/2024 10:18 PM EDT 07/15/2024 10:25 PM EDT Patti English MD URINE ORDERABLES Final Result [facility] [address] [place] [address], [facility] [phone] * (ABNORMAL) Hepatic function panel (07/15/2024 9:21 PM EDT) Protein, Total 7.4 6.4 - 8.2 gm/dL 07/15/2024 9:55 PM EDT [facility] Albumin 3.5 3.4 - 5.0 g/dL 07/15/2024 9:55 PM EDT [facility] Total Bilirubin 0.3 0.2 - 1.0 mg/dL 07/15/2024 9:55 PM EDT [facility] Bilirubin, Direct 0.1 0.1 - 0.2 mg/dL 07/15/2024 9:55 PM EDT [facility] Alkaline Phosphatase 128(H) 46 - 116 U/L 07/15/2024 9:55 PM EDT [facility] Globulin 3.9 g/dL 07/15/2024 9:55 PM EDT [facility] A/G Ratio 0.9 07/15/2024 9:55 PM EDT [facility] AST 20 15 - 37 U/L 07/15/2024 9:55 PM EDT [facility] Comment:4Home has become aware of sulfasalazine and sulfapyridine [...] - 78 U/L 07/15/2024 9:55 PM EDT [facility] Comment:4Home has become aware of sulfasalazine and sulfapyridine [...] MD LAB BLOOD ORDERABLES Final Resu lt [facility] [address] [place] [address] * (ABNORMAL) Basic Metabolic Panel (07/15/2024 9:21 PM EDT) Sodium 135(L) 136 - 145 meq/L 07/15/2024 9:55 PM EDT [facility] Potassium 3.7 3.5 - 5.1 meq/L 07/15/2024 9:55 PM EDT [facility] Chloride 103 98 - 107 meq/L 07/15/2024 9:55 PM EDT [facility] CO2 26 21 - 32 meq/L 07/15/2024 9:55 PM EDT [facility] Anion Gap 10(L) 11 - 22 07/15/2024 9:55 PM EDT [facility] BUN 8 7 - 18 mg/dL 07/15/2024 9:55 PM EDT [facility] Creatinine 1.01 0.55 - 1.10 mg/dL 07/15/2024 9:55 PM EDT [facility] BUN/Creatinine 8 07/15/2024 9:55 PM EDT [facility] Glucose 113(H) 70 - 99 mg/dL 07/15/2024 9:55 PM EDT [facility] Calcium 8.9 8.5 - 10.1 mg/dL 07/15/2024 9:55 PM EDT [facility] Osmolality Calc 269.2 mOsm/kg 9:55 PM EDT [facility] eGFR (mL/min/1.73m2) >60 >=60 mL/min/1.7 3m2 07/15/2024 9:55 PM EDT [facility] Comment:eGFR of <60 suggests chronic kidney disease if found over a 3 month period of time. eGFR <15 indicates renal failure. Blood Venipuncture / Unknown 07/15/2024 9:21 PM EDT 07/15/2024 9:31 PM EDT us Patti English MD LAB BLOOD ORDERABLES Final Resu lt [facility] [address] [place] [address], [facility] [phone] from Last 3 Months Insurance [id number] (Home) [address] [place] [address] [facility] MEDICAID Advance Directives For more information, please contact: [phone] * Full Code (Latest Code Status on File) Date Activated Date Inactivated Comments 06/21/2024 9:24 AM 06/22/2024 2:30 PM * Full Code Date Activated Date Inactivated Comments 06/21/2024 5:31 AM 06/21/2024 9:24 AM Care Teams Bat Boy/Girl Relationship Specialty Start Date End Date Gurjit Mena MD [address] [facility] [address] [place] [address] PCP - General Family Medicine 06/17/24 Fausto Nieves MD [address] [place] [address] Orthopedic Surgery 06/30/24
--- OUTSIDE RECORDS SUMMARY | 2024-10-10 19:25 | XMS_ITS | Clinical Summary ---
Author Organization [facility] Address [address] [place] [id number] Care Team Providers Care Neonatal Nurse Name Role Phone Ha Harrison MD Unavailable [...] therelease of HIV test results or diagnoses. [id number] Health Allergies Active Allergy Reactions Criticality Noted [...] hospital located near her daughter's home in [facility] ([facility] This nurse called them at [phone] Brain done on 04/08/2023is being pushed through PACS. Patient then visited [facility] and had an MRI on 05/14. Patient also had a MRI at [facility] today. Requested this scan to be pushed through PACS., and report emailed to Dr. Harrison. Cristina Andrew has information on these 2 scans in [facility],and will merge these scans to MR#. Patient [...] Insurance [employer] Care Teams Neonatal Nurse Relationship Specialty Start Date End Date Unknown, Attending Provider PCP - General 12/19/23 Ha Harrison MD [address] [place] [phone] Consulting Physician Radiation Oncology 06/18/23 Simi Chung, RN Registered Nurse 06/18/23 Pcp, No No Address 12/15/23
--- OUTSIDE RECORDS SUMMARY | 2024-10-10 19:25 | XMS_ITS | Encounter Summary ---
Author Organization [employer] ([place], [place], [place], [place]) Address [address] [place] [address] Care Team Providers Care [place] Hand Name Role Phone Gurjit Mena MD Primary Care Provider [phone] Fausto Nieves MD Unavailable [phone] Reason for Visit * Reason Comments Medication Refill Encounter Details Date Type Department Care Team (Late st Contact Info) Description 07/18/2024 Refill [facility] - [address] [phone] Fausto Nieves MD [address] [place] [phone] Social History Tobacco Use Types Packs/Day [...] Do you speak a language other than [place]ic at [facility]? No 06/21/2024 [...] Description 11/23/2024 10:00 AM EDT Office Visit [facility] Orthopedics - [address] [phone] Fausto Nieves MD [address] [place] [phone] documented as of this encounter Visit Diagnoses Not on filedocumented in this encounter Care Teams [place] Hand Relationship Specialty Start Date End Date Gurjit Mena MD [address] [place] [address] [place] [address] PCP - General Family Medicine 06/17/24 Fausto Nieves MD [address] [place] [address] Orthopedic Surgery 06/30/24 documented as of this encounter
--- OUTSIDE RECORDS SUMMARY | 2024-10-10 19:26 | XMS_ITS | Clinical Summary ---
Author Organization [email or web address] ([place], [place], [place], [place]) Address [address] [place] [place] [address] Care Team Providers Care Clinical Specialist Vascular Name Role Phone Gurjit Mena MD Primary Care Provider [phone] Fausto Nieves MD Unavailable [phone] Allergies Active Allergy Reactions Criticality Noted [...] EDT - 10/08/2024 10:35 PM EDT Emergency [facility] Emergency Department [address] [place] [address] Som Crowe DO Nausea and vomiting, unspecified vomiting type (Primary Dx); Chronic knee pain after total replacement of left knee joint Discharge Disposition: Home or Self Care 10/08/2024 10:00 AM EDT Ancillary Procedure [address] [address] Ermias Obando PA-C Arrived 10/08/2024 9:15 AM EDT Office Visit [facility] Orthopedics - [address] [phone] Ermias Obando PA-C S/P total knee arthroplasty, left (Primary Dx); Left knee pain; Contusion of left knee, initial encounter 10/08/2024 Travel 08/26/2024 11:00 AM EDT Treatment [facility] OP Physical Therapy [address] [place] [phone] Tejas Richard E, PT Status post left knee replacement with ANNA (Primary Dx) 08/26/2024 Travel 08/09/2024 10:15 AM EDT Treatment [facility] OP Physical Therapy [address] [place] [phone] Du You, MANAGER CARDIOLOGY Status post left knee replacement with ANNA (Primary Dx) 08/09/2024 Travel 08/06/2024 10:15 AM EDT Treatment [facility] OP Physical Therapy [address] [place] [phone] Du You, MANAGER CARDIOLOGY Status post left knee replacement with ANNA (Primary Dx) 08/06/2024 Travel 08/02/2024 10:15 AM EDT Treatment [facility] OP Physical Therapy [address] [place] [phone] Du You, MANAGER CARDIOLOGY Status post left knee replacement with ANNA (Primary Dx) 08/02/2024 Travel 07/30/2024 10:15 AM EDT Treatment [facility] OP Physical Therapy [address] [place] [phone] Du You, MANAGER CARDIOLOGY Status post left knee replacement with ANNA (Primary Dx) 07/30/2024 Travel 07/28/2024 10:15 AM EDT Treatment [facility] OP Physical Therapy [address] [place] [phone] Du You, MANAGER CARDIOLOGY Status post left knee replacement with ANNA (Primary Dx) 07/28/2024 Travel 07/20/2024 9:30 AM EDT Treatment [facility] OP Physical Therapy [address] [place] [phone] Murali Bear, PT Status post left knee replacement with ANNA (Primary Dx) 07/20/2024 Travel 07/18/2024 Refill [facility] - [place] [address] [place] [phone] Fausto Nieves MD 07/15/2024 8:48 PM EDT - 07/15/2024 11:00 PM EDT Emergency [facility] Emergency Department [address] [place] [address] Patti English MD Nausea with vomiting (Primary Dx); Diarrhea; Viral infection; Nausea and vomiting, unspecified vomiting type; Diarrhea, unspecified type Discharge Disposition: Home or Self Care 07/15/2024 Travel 07/13/2024 10:15 AM EDT Treatment [facility] OP Physical Therapy [address] [place] [phone] Murali Bear, PT Status post left knee [...] you? Never 06/21/2024 How often does anyone, taisa jewell family and friends, threaten you with [...] Do you speak a language other than [place] at [facility]? No 06/21/2024 Do you want [...] Description 11/23/2024 10:00 AM EDT Office Visit [facility] Orthopedics - [address] [phone] Fausto Nieves MD [address] [place] [phone] Health Maintenance Due Date Last Done [...] 04/25/2029 04/26/2019 Medical Devices Implanted Type Area Mammal Keeper Device Identifier Shelf Expiration Date Model / Serial / Lot Comp Triathlon Tib Trita Sz3 5536-B-300 - [id number] Implanted:Qt y: 1 on 06/21/2024 by Fausto Nieves MD at [facility] TOTAL JOINT [employer]STRUCT Left: Knee LEANDER:[employer] [id number] 10/06/2028 5536-B-30 0 / / [id number] Patella Press Fit Tritanium 5552-L-299 - [id number] Implanted:Qt y: 1 on 06/21/2024 by Fausto Nieves MD at [facility] TOTAL [employer]STRU[employer] Left: Knee [employer]ANDER:[employer] [id number] 02/17/2029 5552-L-29 9 / / [id number] Comp Fem P/A Cr Beaded Sz3 L 5517-F-301 - [id number] Implanted:Qt y: 1 on 06/21/2024 by Fausto Nieevs MD at [facility] TOTAL [employer]STRU[employer] Left: Knee [employer]ANDER:[employer] [id number] 02/07/2029 5517-F-30 1 / / [id number] Insrt Tib Bearing #3 10mm 3166-R-719-E - [id number] Implanted:Qt y: 1 on 06/21/2024 by Fausto Nieves MD at [facility] TOTAL [employer]STRU[employer] Left: Knee [employer]ANDER:[employer] [id number] 11/22/2028 5531-G-31 0-E / / [id number] Loop Recorder Explanted Type Area Mammal Keeper Device Identifier Shelf Expiration Date Model / Serial / Lot Pin Bone [id number] Strl [id number] - [id number] Explanted:Qty: 1 on 06/21/2024 at [facility] IMPLANTS Left: Knee [employer]ANDER:[employer] 02/25/2029 [id number] / / [id number] Pin Bone [id number] Strl [id number] - [id number] Explanted:Qty: 1 on 06/21/2024 at [facility] IMPLANTS Left: Knee [employer]ANDER:[employer] 03/10/2029 [id number] / / [id number] Procedures Procedure Name Priority Date/Time Associated Diagnosis [...] spectral tracings. No popliteal cyst. Procedure Note Citlail Law MD - 10/09/2024 FINAL REPORT TECHNIQUE: [...] ATRIAL RATE (MCT) 48 BPM GE MUSE DC Interval 198 ms GE MUSE QRS-INTERVAL (MSEC) 100 ms GE MUSE QT Interval 510 ms GE MUSE QTC Interval 455 ms GE MUSE P [place] 60 degrees GE MUSE R AXIS (MCT) 19 degrees GE MUSE T Wave [place] 20 degrees GE MUSE [place] Diagnosis Sinus bradycardia Low voltage QRS Cannot [...] 10.8 K/ L 10/08/2024 9:08 PM EDT [facility] RBC 4.10 3.50 - 5.20 M/ L 10/08/2024 9:08 PM EDT [facility] Hemoglobin 12.8 11.7 - 15.8 GM/DL 10/08/2024 9:08 PM EDT [facility] Hematocrit 37.0 35.0 - 47.0 % 10/08/2024 9:08 PM EDT [facility] MCV 90 81 - 101 fL 10/08/2024 9:08 PM EDT [facility] MCH 31.2 27.0 - 34.0 pg 10/08/2024 9:08 PM EDT [facility] MCHC 34.6 32.0 - 36.0 GM/DL 10/08/2024 9:08 PM EDT [facility] RDW 12.4 11.5 - 14.5 % 10/08/2024 9:08 PM EDT [facility] Platelets 263 150 - 400 K/CU MM 10/08/2024 9:08 PM EDT [facility] MPV 10.3 9.4 - 12.4 fL 10/08/2024 9:08 PM EDT [facility] Nucleated Red Blood Cell 0.0 0 - 0.2 % 10/08/2024 9:08 PM EDT [facility] % Neutros 60 37 - 80 % 10/08/2024 9:08 PM EDT [facility] % Lymphs 32 10 - 50 % 10/08/2024 9:08 PM EDT [facility] % Monos 6 5 - 13 % 10/08/2024 9:08 PM EDT [facility] % Eos 2 0 - 7 % 10/08/2024 9:08 PM EDT [facility] % Baso 1 0 - 3 % 10/08/2024 9:08 PM EDT [facility] NRBC Absolute <0.01 0 - 0.012 K/ul 10/08/2024 9:08 PM EDT [facility] # Neutros 4.98 2.00 - 6.90 K/ L 10/08/2024 9:08 PM EDT [facility] # Lymphs 2.62 0.60 - 3.40 K/ L 10/08/2024 9:08 PM EDT [facility] # Monos 0.48 0.00 - 0.90 K/ L 10/08/2024 9:08 PM EDT [facility] # Eos 0.17 0.00 - 0.70 K/ L 10/08/2024 9:08 PM EDT [facility] # Baso 0.04 0.00 - 0.20 K/ L 10/08/2024 9:08 PM EDT [facility] Immature Granulocytes-Re lative 0.20 % 10/08/2024 9:08 PM EDT [facility] # IG 0.02(H) 0.00 - 0.00 K/uL 10/08/2024 9:08 PM EDT [facility] Blood Venipuncture / Unknown 10/08/2024 8:56 PM EDT 10/08/2024 8:59 PM EDT Narrative [facility] - 10/08/2024 9:08 PM EDT [...] ORDERABLES Fi nal Result Performing Organization Address [facility] de Phone Number [facility] [address] [place] [address] * High Sensitivity Troponin I (10/08/2024 8:56 PM EDT) [facility] Troponin I High Sensitivity (pg/mL) 15.6 4 - 60.3 pg/mL 10/08/2024 9:26 PM EDT [facility] Comment: Troponin Result (pg/mL) *Interpretation [...] ORDERABLES Final Resul t Performing Organization Address [facility] Phone Number [facility] [address] [place] [address] * Lipase (10/08/2024 8:56 PM EDT) Only the most recent of2 resultswithin the time period is included. [facility] Lipase 16 16 - 77 U/L 10/08/2024 9:26 PM EDT [facility] Blood Venipuncture / Unknown 10/08/2024 8:56 PM EDT 10/08/2024 8:59 PM EDT us Koby Ramesh PA-C LAB BLOOD ORDERABLES Fi nal Result [facility] [address] [place], [place] [address] [phone] * (ABNORMAL) Comprehensive metabolic panel (10/08/2024 8:56 PM EDT) Sodium 138 136 - 145 meq/L 10/08/2024 9:26 PM EDT [facility] Potassium 3.6 3.5 - 5.1 meq/L 10/08/2024 9:26 PM EDT [facility] Chloride 103 98 - 107 meq/L 10/08/2024 9:26 PM EDT [facility] CO2 29 21 - 32 meq/L 10/08/2024 9:26 PM EDT [facility] Calcium 8.7 8.5 - 10.1 mg/dL 10/08/2024 9:26 PM EDT [facility] Glucose 84 74 - 100 mg/dL 10/08/2024 9:26 PM EDT [facility] BUN 9 7 - 18 mg/dL 10/08/2024 9:26 PM EDT [facility] Creatinine 0.97 0.55 - 1.10 mg/dL 10/08/2024 9:26 PM EDT [facility] BUN/Creatinine 9 10/08/2024 9:26 PM EDT [facility] Albumin 3.4 3.4 - 5.0 g/dL 10/08/2024 9:26 PM EDT [facility] Alkaline Phosphatase 85 46 - 116 U/L 10/08/2024 9:26 PM EDT [facility] ALT 20 12 - 78 U/L 10/08/2024 9:26 PM EDT [facility] AST 14(L) 15 - 37 U/L 10/08/2024 9:26 PM EDT [facility] Total Bilirubin 0.3 0.2 - 1.0 mg/dL 10/08/2024 9:26 PM EDT [facility] Protein, Total 6.8 6.4 - 8.2 gm/dL 10/08/2024 9:26 PM EDT [facility] Anion Gap 10(L) 11 - 22 10/08/2024 9:26 PM EDT [facility] A/G Ratio 1.0 10/08/2024 9:26 PM EDT [facility] Globulin 3.4 g/dL 10/08/2024 9:26 PM EDT [facility] Osmolality Calc 273.6 mOsm/kg 9:26 PM EDT [facility] eGFR (mL/min/1.73m2) >60 >=60 mL/min/1.7 3m2 10/08/2024 9:26 PM EDT [facility] Comment:ESTIMATED GFR IS NOT ACCURATE CREATININE CLEARANCE IN PREDICTING GLOMERULAR FILTRATION RATE. ESTIMATED GFR IS NOT APPLICABLE FOR DIALYSIS PATIENTS. Blood Venipuncture / Unknown 10/08/2024 8:56 PM EDT 10/08/2024 8:59 PM EDT Koby Ramesh PA-C LAB BLOOD ORDERABLES Fi nal Result [facility] [address] [place] [address], [facility] [phone] * Urinalysis, Reflex Microscopic and Culture If Indicated (07/15/2024 10:18 PM EDT) Color, UA Straw 07/15/2024 10:39 PM EDT [facility] Clarity, UA Clear 07/15/2024 10:39 PM EDT [facility] Specific [place], UA 1.020 1.002 - 1.030 07/15/2024 10:39 PM EDT [facility] pH, UA 6.0 5.0 - 9.0 07/15/2024 10:39 PM EDT [facility] Leukocytes, UA Negative Negative 07/15/2024 10:39 PM EDT [facility] Nitrite, UA Negative Negative 07/15/2024 10:39 PM EDT [facility] Protein, UA Negative Negative 07/15/2024 10:39 PM EDT [facility] Glucose, UA Negative Negative 07/15/2024 10:39 PM EDT [facility] Ketones, UA Negative Negative 07/15/2024 10:39 PM EDT [facility] Bilirubin, UA Negative Negative 07/15/2024 10:39 PM EDT [facility] Blood, UA Negative Negative 07/15/2024 10:39 PM EDT [facility] Urobilinogen, UA 0.2 mg/dL Normal 07/15/2024 10:39 PM EDT [facility] Specimen Source Urine, Clean Catch 07/15/2024 10:39 PM EDT [facility] Urine URINE SPECIMEN COLLECTION, CLEAN CATCH / Unknown 07/15/2024 10:18 PM EDT 07/15/2024 10:25 PM EDT us Patti English MD URINE ORDERABLES Final Result [facility] [address] [place] [address] * (ABNORMAL) Hepatic function panel (07/15/2024 9:21 PM EDT) Protein, Total 7.4 6.4 - 8.2 gm/dL 07/15/2024 9:55 PM EDT [facility] Albumin 3.5 3.4 - 5.0 g/dL 07/15/2024 9:55 PM EDT [facility] Total Bilirubin 0.3 0.2 - 1.0 mg/dL 07/15/2024 9:55 PM EDT [facility] Bilirubin, Direct 0.1 0.1 - 0.2 mg/dL 07/15/2024 9:55 PM EDT [facility] Alkaline Phosphatase 128(H) 46 - 116 U/L 07/15/2024 9:55 PM EDT [facility] Globulin 3.9 g/dL 07/15/2024 9:55 PM EDT [facility] A/G Ratio 0.9 07/15/2024 9:55 PM EDT [facility] AST 20 15 - 37 U/L 07/15/2024 9:55 PM EDT [facility] Comment:[employer] has become aware of sulfasalazine and sulfapyridine [...] - 78 U/L 07/15/2024 9:55 PM EDT [facility] Comment:[employer] has become aware of sulfasalazine and sulfapyridine [...] MD LAB BLOOD ORDERABLES Final Resu lt [facility] [address] [id number], [facility] [phone] * (ABNORMAL) Basic Metabolic Panel (07/15/2024 9:21 PM EDT) Sodium 135(L) 136 - 145 meq/L 07/15/2024 9:55 PM EDT [facility] Potassium 3.7 3.5 - 5.1 meq/L 07/15/2024 9:55 PM EDT [facility] Chloride 103 98 - 107 meq/L 07/15/2024 9:55 PM EDT [facility] CO2 26 21 - 32 meq/L 07/15/2024 9:55 PM EDT [facility] Anion Gap 10(L) 11 - 22 07/15/2024 9:55 PM EDT [facility] BUN 8 7 - 18 mg/dL 07/15/2024 9:55 PM EDT [facility] Creatinine 1.01 0.55 - 1.10 mg/dL 07/15/2024 9:55 PM EDT [facility] BUN/Creatinine 8 07/15/2024 9:55 PM EDT [facility] Glucose 113(H) 70 - 99 mg/dL 07/15/2024 9:55 PM EDT [facility] Calcium 8.9 8.5 - 10.1 mg/dL 07/15/2024 9:55 PM EDT [facility] Osmolality Calc 269.2 mOsm/kg 9:55 PM EDT [facility] eGFR (mL/min/1.73m2) >60 >=60 mL/min/1.7 3m2 07/15/2024 9:55 PM EDT [facility] Comment:eGFR of <60 suggests chronic kidney disease if found over a 3 month period of time. eGFR <15 indicates renal failure. Blood Venipuncture / Unknown 07/15/2024 9:21 PM EDT 07/15/2024 9:31 PM EDT us Patti English MD LAB BLOOD ORDERABLES Final Resu lt [facility] [address] [place] [address], [facility] [phone] from Last 3 Months Insurance [id number] (Home) [address] [place] [address] [employer] Advance Directives For more information, please contact: [phone] * Full Code (Latest Code Status on File) Date Activated Date Inactivated Comments 06/21/2024 9:24 AM 06/22/2024 2:30 PM * Full Code Date Activated Date Inactivated Comments 06/21/2024 5:31 AM 06/21/2024 9:24 AM Care Teams Clinical Specialist Vascular Relationship Specialty Start Date End Date Gurjit Mena MD [address] [place] [address] PCP - General Family Medicine 06/17/24 Fausto Nieves MD [address] [place] [address] Orthopedic Surgery 06/30/24
--- NOTE | 2024-10-10 19:39 | ECG_ITS ---
APPROVED REPORT Exam: Resting ECG HR:59 bpm ECG Measurements Heart Rate 59 AXES SD 184 P 45 QRSd 106 QRS 11 QT 453 T 19 QTc 452 Conclusion SINUS BRADYCARDIA INCOMPLETE RIGHT BUNDLE BRANCH BLOCK [90+ ms QRS DURATION, TERMINAL R IN V1/V2, 40+ ms S IN I/aVL/V4/V5/V6] MODERATE T-WAVE ABNORMALITY, CONSIDER ANTERIOR ISCHEMIA [-0.1+ mV T-WAVE IN V3/V4] ABNORMAL ECG UNCONFIRMED REPORT Electronically signed by : ANTONIA NOVAK, 10/11/2024 23:18:49
[2024-10-10 19:44] LABS: Hematocrit 37.4 % (37.0-47.0); Hemoglobin 12.6 g/dL (12.2-16.2); Immature Granulocytes % 0.3 %; Mean Corpuscular HGB Conc 33.7 g/dL (31.8-35.4); Mean Corpuscular Hemoglobin 30.9 pg (27.0-31.2); Mean Corpuscular Volume 91.7 fl (81-99); Nucleated Red Blood Cells % 0 %; Platelet Count 288 K/mm3 (142-424); Red Blood Count 4.08 M/mm3 (4.20-5.40); Red Cell Distribution Width-SD 41.6 fL; White Blood Count 7.6 K/mm3 (4.8-10.8)
[2024-10-10 19:47] LABS: Albumin Level 4.0 g/dl (3.5-5.0); Chloride 106 mmol/L (98-107); Sodium 138 mmol/L (136-145)
--- NOTE | 2024-10-10 19:47 | ED_ITS ---
<Statement entered by Tia Casanova MD - 10/10/24 22:53> I was consulted by the ANDERS, and we discussed the complexity of the problems being addressed. I approved the treatment and management plan for this patient's care in the emergency department, thus performing a substantive portion of the medical decision making. Tia Casanova MD, VITO, FACEP Discharge Plan Disposition Patient Disposition: Home, Self-Care Prescriptions Prescriptions: New nitroglycerin 0.4 mg tablet, sublingual 0.4 mg sublingual Q5M PRN (Reason: chest pain) Qty: 14 0RF Rx Instructions: do not exceed 3 doses per episode No Action escitalopram oxalate 20 mg tablet 20 mg PO DAILY Patient Comments: TAKE 1 TABLET BY MOUTH ONCE DAILY buspirone 10 mg tablet 10 mg PO NEEDED PRN (Reason: Anxiety) Patient Comments: TAKE 1 TABLET BY MOUTH THREE TIMES DAILY hydrocortisone [Proctosol HC] 2.5 % cream with perineal applicator 1 applic NM QD-BID PRN (Reason: hemorrhoids) Qty: 30 0RF albuterol sulfate [Ventolin HFA] 90 mcg/actuation HFA aerosol inhaler 90 mcg inhalation NEEDED PRN (Reason: SOA) Patient Comments: INHALE 2 PUFFS BY MOUTH EVERY 4 TO 6 HOURS NEEDED FOR SHORTNESS OF BREATH FOR WHEEZING dicyclomine 20 mg tablet 20 mg PO QID Patient Comments: TAKE 1 TABLET BY MOUTH 4 TIMES DAILY FOR 8 DAYS ondansetron 4 mg tablet,disintegrating 4 mg PO Q4H PRN Patient Comments: DISSOLVE 1 TABLET IN MOUTH EVERY 4 HOURS NEEDED FOR NAUSEA AND VOMITING UP TO FOR 7 DAYS naproxen 500 mg tablet 500 mg PO BID Patient Comments: TAKE 1 TABLET BY MOUTH TWICE DAILY WITH BREAKFAST AND WITH SUPPER FOR 5 DAYS trazodone 100 mg tablet 100 mg PO HS Patient Comments: TAKE 2 TABLETS BY MOUTH NIGHTLY NEEDED FOR SLEEP levocetirizine [Xyzal] 5 mg tablet 5 mg PO DAILY Qty: 30 2RF estradiol 1 mg tablet See Rx Instructions .ROUTE .COMPLEX Qty: 30 12RF Dose Instruction: Take 1 tablet by mouth once daily Rx Instructions: Take 1 tablet by mouth once daily rivaroxaban 15 mg (42)- 20 mg (9) tablets,dose pack See Rx Instructions .ROUTE .COMPLEX Qty: 51 0RF Rx Instructions: take one-15 mg tablet twice daily for 21 days, then one-20 mg tablet once daily; must take with meal/food Referrals Follow up/Referrals: Provider,Referral, MD [Referring, Medical] - See instructions Activity Restrictions/Add. Instructions Additional Instructions/Restrictions: Follow-up with PCP, Dr. Presley and [facility] for venous Doppler tomorrow as discussed Clinical Impressions Clinical Impression: Chest pain Instructions Patient Instructions: DI for Chest Pain Print Language Print Language: Samoan Discharge ED Provider: Tia Casanova HPI General Chief Complaint: Chest Pain Stated Complaint: CP Time Seen by Provider: 10/10/24 19:39 Mode of Arrival: Ambulatory Source of Information: Patient Description of Symptoms (Recalled from ER Triage Doc. by RN): pt reports she was seen here this morning is is not feeling any better, pt reports she is now having chest tightness, pain that radiates down the right arm, and right leg swelling. History of Present Illness HPI narrative: Patient was seen this morning by Dr. Feliz and complete workup with standing. She did a CTA, x-rays, full cardiac workup full labs and POCUS to finally diagnose patient with left DVT in her femoral artery and gave her Xarelto. Patient says she has had chest pain since 2 AM. Her cardiac workup was negative today. She was given an appointment for cardiology for 9 AM in the morning as well as instructed to go for DVT ultrasound when called. Patient and I discussed that she needs to do these follow-ups. Related Data Home Medications ?Medication ?Instructions ?Recorded ?Confirmed trazodone 100 mg tablet 100 mg PO HS 09/04/23 buspirone 10 mg tablet 10 mg PO NEEDED PRN Anxie ty 05/25/24 08/04/24 escitalopram oxalate 20 mg tablet 20 mg PO DAILY 05/2508/04/24 albuterol sulfate 90 mcg/actuation 90 mcg inhalation A S NEEDED PRN SOA 06/10/24 08/04/24 aerosol inhaler (Ventolin HFA) dicyclomine 20 mg tablet 20 mg PO QID 07/21/24 naproxen 500 mg tablet 500 mg PO BID 07/21/2408/04 ondansetron 4 mg disintegrating 4 mg PO Q4H PRN 08/04/24 tablet Previous Rx's ?Medication ?Instructions ?Recorded levocetirizine 5 mg tablet (Xyzal) 5 mg PO DAILY #30 t abs 12/10/23 hydrocortisone 2.5 % topical cream 1 applic NM QD-BID PRN hemorrhoids 05/25/24 with perineal applicator #30 grams (Proctosol HC) estradiol 1 mg tablet See Rx Instructions .Route 0 08/03/24 .COMPLEX #30 tabs nitroglycerin 0.4 mg sublingual 0.4 mg sublingual Q5M PRN chest 10/10/24 tablet pain #14 tabs rivaroxaban 15 mg (42)-20 mg (9) See Rx Instructions P O .COMPLEX 10/10/24 tablets in a starter pack #51 tabs Allergies Allergy/AdvReac Type Severity Reaction Status Date / Time adhesive tape Allergy Mild Rash Verified 08/04/24 10:03 [facility] Disclaimer: The information contained in this section may have been updated after the patient was seen, as this information can be updated by other users. Medical History (Updated 10/10/24 @ 20:02 by Melissa Gupta (ED), [employer]) Left knee DJD Abnormal cardiovascular stress test Atypical angina Preop testing Sleep apnea Thyroid Nodule Hearing loss in right ear Loose left total knee arthroplasty Chronic sinusitis H/O Eustachian tube dysfunction Hearing difficulty of right ear Dyspnea on exertion FARHEEN (obstructive sleep apnea) Meningioma Seizures Ovarian cyst Breast cancer Hx of thyroid cancer Implantable loop recorder present Tachycardia History of hypertension PTSD (post-traumatic stress disorder) Anxiety Depression Surgical History History of partial thyroidectomy History of loop recorder H/O: knee surgery History of carpal tunnel repair History of cholecystectomy History of abdominal hysterectomy Family History Other Anemia Asthma Cancer Coronary artery disease Diabetes FHx: mental illness Heart attack Hyperlipidemia Hypertension Thyroid disorder Social History Smoking Status: Former smoker tobacco type: cigarettes packs per day: 0 alcohol intake: current alcohol intake frequency: holidays/special occasions only counseling provided: none substance use type: denies use current occupational status: unemployed Travel in the last 8 weeks?: None household members: none housing: house marital status: single number of children: 3 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 current occupational exposures/hazards: No caffeine: No Have you lived/traveled outside [place] in past 30 days?: No Contact w/someone who lives/traveled outside [place] past 30 days?: No Exposure to someone with infectious disease in past 14 days?: No Do you have a fever (greater than 100.4 F or 38 C)?: No Have you tested positive for COVID-19?: No Exposed to someone with COVID-19 in past 14 days?: No Do you have a sore throat?: No Do you have a cough?: No Do you have any weakness?: No Do you have any diarrhea?: No Are you experiencing any unusual bleeding?: No Do you have any muscle aches/pain?: No Do you have any abdominal pain?: No Are you experiencing loss of taste or smell?: No Other Medical History Have you received the Flu Vaccine for this season: No Have you received the Pneumonia Vaccine: No ROS Obtained: Yes Systems reviewed as appropriate & no additional complaints except as documented Constitutional Constitutional: Reports as per HPI Physical Exam General General appearance: alert Head Head exam: normocephalic Eye Eye exam: Present PERRL and EOMI Respiratory Respiratory exam: Present normal lung sounds bilaterally Cardiovascular Cardiovascular exam: Present regular rate, normal rhythm, +S1 and +S2 Abdominal Exam Abdominal exam: Present soft Extremities Exam Extremities exam: Present full ROM and edema Neurological Exam Neurological exam: Present alert and oriented X3 Skin Skin exam: Present warm, dry and intact HEART Score HEART Score HEART Score assessment performed?: Yes History (anamnesis): Slightly suspicious ECG: Normal Age: 45-65 years Risk factors: No known risk factors Troponin: </= normal limit HEART Score: 1 Critical Care Critical Care Time Critical Care Time: No Medical Decision Making [place] Inquiry Pt receiving controlled substance: No [place] was queried for this patient: No Vital Signs Vital Signs: 10/10/24 19:22 10/10/24 20:04 Temperature 98.6 F 98.6 F Temperature Source Oral Pulse Rate 58 L Pulse Rate [Right] 61 Respiratory Rate 20 20 Blood Pressure 114/71 Blood Pressure [Right Arm] 115/66 Blood Pressure Mean [Right Arm] 82 02 Sat by Pulse Oximetry 95 Oxygen Delivery Method Room Air Lab Data Labs: Lab Results 10/10/24 19:26: Sodium 138, Potassium 4.0, Chloride 106, Carbon Dioxide 27, Anion Gap 9.0, BUN 9, Creatinine 0.90, Estimated Creat Clear 119, Estimated GFR 67, Est GFR ( Amer) 81, Total Bilirubin 0.2, AST 30, ALT 14, Alkaline Phosphatase 85, Troponin I < 0.01, Total Protein 6.8, Albumin 4.0, Globulin 2.8, Albumin/Globulin Ratio 1.4 10/10/24 19:26 Response Orders (Tests/Meds): ORDERS Category Date Time Status CBC w/Auto Diff [Complete Blood Count Auto Diff] Stat Lab 10/10/24 19:26 Received CMP [Comprehensive Metabolic Panel] Stat Lab 10/10/24 19: Results Trop I [Troponin I] Stat Lab 10/10/24 19: Results MDM Narrative Medical Decision Narrative: Discussed with patient that a complete workup was done this morning when she was seen by Dr. Feliz. It is unnecessary that we complete another workup. She will go for a formal ultrasound tomorrow when she is called by her hospital. I also informed her that she could show up at Dr. Presley's office in the morning at 9 AM. I also encouraged her to go to her PCPs office for follow-up. She is to take her Xarelto as scheduled. She does not have any additional symptoms tonight when she presents. She and I discussed this and she is okay following up as discussed with earlier. I did discuss this with Dr. Casanova. Patient is safe for discharge home.
[2024-10-10 19:48] LABS: Potassium 4.0 mmoL/L (3.5-5.1)
[2024-10-10 19:50] LABS: Alanine Aminotransferase 14 U/L (12-78); Albumin/Globulin Ratio 1.4 (1.1-1.8); Alkaline Phosphatase 85 U/L (38-126); Anion Gap 9.0 mEq/L (5-15); Aspartate Amino Transferase 30 U/L (14-36); Bilirubin,Total 0.2 mg/dl (0.2-1.3); Blood Urea Nitrogen 9 mg/dl (7-17); Carbon Dioxide 27 mmol/L (22.0-30.0); Creatinine Clearance Estimated 119 mL/min (50-200); Creatinine,Serum 0.90 mg/dl (0.52-1.04); Estimated Glomerular Filt Rate 67 ml/min (>60); GFR (African American) 81 ML/MIN (>60); Globulin 2.8 g/dL (1.3-3.2); Total Protein,Serum 6.8 g/dl (6.3-8.2)
[2024-10-10 20:04] VITALS: BP 114/71; PULSE 58; RESP 20; TEMP 37; O2SAT 95
[2024-10-10 20:19] LABS: Troponin I < 0.01 ng/ml (0.00-0.034)
[2024-10-10 22:47] LABS: Calcium 8.9 mg/dl (8.4-10.2); Glucose 102 mg/dl (74-100)
== END 2024-10-10 20:08 | disposition home or self-care (01) ==
PROVIDERS: Emergency Provider Student in an Organized Health Care Education/Training Program; PCP Family Medicine
DX: R07.9 Chest pain, unspecified (principal); R00.1 Bradycardia, unspecified
CPT/HCPCS: 80053; 84484; 85025; 93005; 99283

== ENCOUNTER 2024-10-11 10:01 | Outpatient (CLI) | payer MEDICAID, SELFPAY ==
--- OUTSIDE RECORDS SUMMARY | 2024-08-26 11:00 | XMS_ITS | Encounter Summary ---
Author Organization [employer] ([place], [place], [place], [place]) Address [address] [place] [address] Care Team Providers Care [employer] Name Role Phone Gurjit Mena MD Primary Care Provider [phone] Fausto Nieves MD Unavailable Reason for Visit * Consultation (Routine) - Authorized Specialty Diagnoses / Procedures Referred By William mata Referred To Contact Physical Therapy Diagnoses Status post left knee replacement Fausto Nieves MD [address] [place] [address] Phone: tel: fax: Referral ID Status Reason Start Date Expiration Date Visits Requested Visits Authorized [id number] Authorized Specialty Services Required 08/26/2024 10/25/2024 6 6 Encounter Details Date Type Department Care Team (Late st Contact Info) Description 08/26/2024 11:00 AM EDT Treatment [facility] OP Physical Therapy [address] [place] [phone] Tejas Richard, PT Status post left knee [...] Do you speak a language other than [place]otho at [place]? No 06/21/2024 Do you [...] the below stated problems/goals, using Therapeutic Exercise (36460), Therapeutic Activity (23038), Gait Training (75534), Manual Therapy (73172), Neuromuscular Re- education (97162), and Hot/Cold Packs 1x/Day. Skilled intervention required [...] questions, Pt/CG demonstrated carry-over, and Handouts provided Longterm Goals: Patient will demonstrate 4+/5 L knee [...] Description 11/23/2024 10:00 AM EDT Office Visit [facility] Orthopedics - [address] [phone] Fausto Nieves MD [address] [place] [phone] documented as of this encounter Visit Diagnoses Diagnosis Status post left knee replacement with ANNA- Primary documented in this encounter Care Teams [employer] Relationship Specialty Start Date End Date Gurjit Mena MD [address] [place] [facility] [address] [place] [address] PCP - General Family Medicine 06/17/24 Fausto Nieves MD [address] [place] [address] Orthopedic Surgery 06/30/24 documented as of this encounter
--- OUTSIDE RECORDS SUMMARY | 2024-08-29 19:35 | XMS_ITS | Encounter Summary ---
Author Organization [place] [address] Care Team Providers Care Plant Director Name Role Phone Mandeep Beckham Primary Care Provider [phone] Reason for Visit * Reason Comments Fall Slipped and fell on L knee; hx knee replacement to same knee in June Encounter Details Date Type Department Care Team (Late st Contact Info) Description 08/29/2024 7:35 PM EDT - 08/29/2024 9:29 PM EDT Emergency [facility] Emergency [address] [place] [address] Roc Darden MD [address] [place] [address] Fall, initial encounter (Primary Dx); Acute pain of left knee Discharge Disposition: Home or Self Care Social History Tobacco Use Types Packs/Day Years Used Date Smoking Tobacco: Former Cigarettes 1 5 0 02/18/1992 - 02/16/1997 Smokeless Tobacco: Never Alcohol Use Standard Drinks/Week Comments Yes 2 [...] Never 08/15/2022 How often do you attend [facility] or spiritism services? Never 08/15/2022 Do you belong to any clubs o r organizations such as yazidism groups, unions, fraternal or athletic groups, or [...] Date Recorded PHQ-2 Total Score 2 08/17/2022 [facility] - Occupational Stress Questionnaire Answer Date Recorded [...] place to sleep or slept in a usp (including now)? 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 Not on file Not on file documented as of this encounter Last Filed Vital Signs Vital Sign Reading Time Taken Comments Blood Pressure 116/88 08/29/2024 8:11 PM EDT Pulse 56 08/29/2024 8:09 PM EDT Temperature 36.8 C (98.2 F) 08/29/2024 7:35 PM EDT Respiratory Rate 17 08/29/2024 7:35 PM EDT Oxygen Saturation 98% 08/29/2024 7:37 PM EDT Inhaled Oxygen Concentration - - Weight 98 kg (216 lb) 08/29/2024 7:36 PM EDT Height 160 cm (5' 3 ) 08/29/2024 7:36 PM EDT Body Mass Index 38.26 08/29/2024 7:36 PM EDT documented in this encounter Functional Status * Is the person deaf or does he/she have serious difficulty hearing? Answer Date of Assessment Author No 04/05/2022 12:20 PM Keri Ibarra RMA * Is the person blind or does he/she have serious difficulty seeing even when wearing glasses? Answer Date of Assessment Author No 04/05/2022 12:20 PM Keri Ibarra RMA * Does this person have serious difficulty walking or climbing stairs? Answer Date of Assessment Author No 04/05/2022 12:20 PM Keri Ibarra RMA * Does this person have difficulty dressing or bathing? Answer Date of Assessment Author No 04/05/2022 12:20 PM Keri Ibarra RMA * Because of a physical, mental or emotional condition, does this person have difficulty doing errands alone such as visiting a doctor's office or shopping? Answer Date of Assessment Author No 04/05/2022 12:20 PM Keri Ibarra RMA * Suicide Severity Rating Answer Date of Assessment Author No Risk 08/29/2024 7:25 PM EDT Beatriz Piedra RN * [place] Suicide Severity Rating Scale (Q shift for moderate and high) Question Answer Date of Assessment Author 1. In the past month, have y ou wished you were or wished you could go to sleep and not wake up? 0 08/29/2024 7:25 PM EDT Beatriz Piedra RN 2. In the past month, have y ou actually had any thoughts of killing yourself? (If no, skip to question 6) 0 08/29/2024 7:25 PM EDT Beatriz Piedra RN 6. Have you ever done anythi ng, started to do anything, or prepared to do anything to end your life? 0 08/29/2024 7:25 PM EDT Beatriz Piedra RN documented as of this encounter Mental Status * Because of a physical, mental or emotional condition, does this person have serious difficulty concentrating, remembering or making decisions? Answer Entry Date Author No 04/05/2022 12:20 PM Keri Ibarra RMA documented in this encounter Discharge Instructions * Discharge Instructions* Roc Darden MD - 08/29/2024 9:14 PM EDT Please call and schedule follow-up appoint with orthopedics for reevaluation. Ice your knee as needed. Take Tylenol ibuprofen as needed for pain discomfort. Return as needed for any worsening symptoms * Attachments The following attachments cannot be sent through Care Everywhere. * Managing acute pain at home (Japanese) documented in this encounter Medications at Time of Discharge albuterol (PROAIR HFA) 90 mcg/actuation Inhl HFA Aerosol Inhaler Inhale 2 Puffs into the lungs every 6 hours as needed for Wheezing. 1 Each 2 09/10/2021 Cholecalciferol, Vitamin D3, 125 mcg (5,000 unit) Oral Tablet Take 1 Capsule by mouth daily. cyanocobalamin 1,000 mcg Oral TabletIndications:Vi tamin B12 deficiency Take 1 Tab by mouth daily. 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 60 Tablet 04/14/2023 docusate sodium (COLACE) 100 mg Oral Capsule Take one capsule three times a day while on pain meds 90 Capsule 08/04/2023 escitalopram oxalate (LEXAPRO) 10 mg Oral Tablet Take 1 Tablet by mouth daily. 90 Tablet 1 09/01/2023 estradiol (ESTRACE) 1 mg Oral Tablet Take 1 mg by mouth nightly. famotidine (PEPCID) 40 mg Oral TabletIndications:Ga stroesophageal reflux disease with esophagitis without hemorrhage Take 1 Tablet by mouth every evening. 90 Tablet 3 03/11/2023 fluticasone furoate-vilanteroL (BREO ELLIPTA) 200-25 mcg/dose Inhl Disk with DeviceIndications:Dy spnea on exertion Inhale 1 Puff into the lungs daily. 1 Each 6 10/08/2021 ipratropium (ATROVENT) 21 mcg (0.03 %) Nasl [place], Non-AerosolIndicatio ns:Subacute cough 2 Sprays by Nasal route 3 times daily. 30 mL 2 03/11/2023 meloxicam (MOBIC) 15 mg Oral TabletIndications:Ac ili[place] pain of left knee Take 1 Tablet by mouth daily. 30 Tablet 2 09/26/2023 multivitamin, stress formula (ALLBEE VIT WITH C & B COMPLEX) Oral Tablet Take 1 Tablet by mouth daily. omeprazole (PRILOSEC) 40 mg Oral Capsule, Delayed Release(E.C.) Take by mouth daily. oxyCODONE (ROXICODONE) 5 mg Oral Tablet Take 1 Tablet by mouth every 4 hours as needed for Major Surgery/Traum a (G89.18) for up to 30 doses. 30 Tablet 08/04/2023 promethazine (PHENERGAN) 25 mg Oral Tablet Take 1 Tablet by mouth every 6 hours as needed for Nausea for up to 20 doses. 20 Tablet 08/04/2023 traZODone (DESYREL) 100 mg Oral Tablet Take 2 Tablets by mouth nightly as needed for Sleep. 180 Tablet 1 09/01/2023 acetaminophen 325 mg Oral Tab Take 2 Tablets by mouth every 6 hours as needed for Pain or Fever for up to 30 days. 30 Tablet 08/29/2024 5 ibuprofen (ADVIL;MOTRIN) 600 mg Oral Tablet Take 1 Tablet by mouth every 8 hours as needed for Pain for up to 30 days. 30 Tablet 08/29/2024 5 documented as of this encounter Ordered Prescriptions Prescription Sig Dispense Quantity Refills Last Filled Start Date End Date acetaminophen 325 mg Oral Tab Take 2 Tablets by mouth every 6 hours as needed for Pain or Fever for up to 30 days. 30 Tablet 08/29/2024 5 ibuprofen (ADVIL;MOTRIN) 600 mg Oral Tablet Take 1 Tablet by mouth every 8 hours as needed for Pain for up to 30 days. 30 Tablet 08/29/2024 5 documented in this encounter Discharge Disposition Disposition Code Departure Means Destination Comment s Home or Self Intermediate documented in this encounter ED Notes * Esther Das RN - 08/29/2024 9:20 PM EDT Patient declined crutches and knee immobilizer. * Roc Darden MD - 08/29/2024 7:24 PM EDT CC: Chief Complaint Patient presents with Fall Slipped and fell on L knee; hx knee replacement to same knee in June History obtained via patient. History limitations HPI: Ran Ayala is a 48 y.o. female with a past medical history significant for the below who presents emerged part due to left knee pain. Patient was walking when she tripped and fell in the shower and landed on her left knee. Had a left knee replacement back in June. I reviewed the patient's recent medical record which revealed: See Above. Past Medical History: Diagnosis Date Arthritis Asthma Cardiac dysrhythmia tachycardia Depression Anxiety, PTSD Esophageal dysphagia Gastroparesis Heart attack (HCC) 2014 Heartburn Hypertension no meds at this time Meningioma (HCC) 2023 Migraine Shortness of breath exercise induced, can't walk a city block w/o SOB; can't walk a flight of steps w/o SOB; can lie flat OK Sleep apnea uses CPAP setting 4-8 ROS: All Pertinent ROS Negative Unless otherwise stated within HPI. VITALS: Vitals: 08/29/24 19308/29/24 19308/29/24 19308/29/242008 BP: 123/88 Pulse: 59 56 Resp: 17 Temp: 98.2 ??F (36.8 ??C) TempSrc: Oral SpO2: 98% Weight: 216 lb (98 kg) Height: 5' 3 (1.6 m) 08/29/242010 BP: 116/88 Pulse: Resp: Temp: TempSrc: SpO2: Weight: Height: Physical Exam Vitals reviewed. Constitutional: General: She is not in acute distress. Appearance: She is not ill-appearing or toxic-appearing. HENT: Head: Normocephalic and atraumatic. Mouth/Throat: Mouth: Mucous membranes are moist. Eyes: Extraocular Movements: Extraocular movements intact. Conjunctiva/sclera: Conjunctivae normal. Pupils: Pupils are equal, round, and reactive to light. Pulmonary: Effort: Pulmonary effort is normal. No respiratory distress. Musculoskeletal: General: No deformity. Normal range of motion. Cervical back: Normal range of motion and neck supple. No rigidity. Left knee: Bony tenderness present. No deformity, effusion, lacerations or crepitus. Normal range of motion. No tenderness. Normal patellar mobility. Comments: Surgical scar present over the left knee. Tenderness palpation of the left anterior patella. No obvious deformity. No significant effusion. Extensor mechanism intact Neurological: General: No focal deficit present. Mental Status: She is alert. Mental status is at baseline. LABS/IMAGING: Reviewed (See Orders) XR KNEE LEFT AP LATERAL INTERNAL AND EXTERNAL OBLIQUES Final Result No acute osseous abnormality. - Note: Radiology results need to be interpreted within a comprehensive clinical context. If you have questions about the radiology report, please contact the office of the ordering clinician. Abnormal Labs Reviewed - No data to display MEDICATIONS ADMINISTERED: Medications acetaminophen (TYLENOL) tablet 1,000 mg (1,000 mg Oral Given 08/29/242009) MEDICAL DECISION MAKING: Ran Ayala is a 48 y.o. female who presents with left knee pain differential diagnosis includes but not limited to contusion, fracture, ligamentous injury X-rays obtained of the targeted extremity demonstrate no acute fracture. Affected extremity is neurovascular intact. Extensor mechanism intact. Do not suspect a patellar tendon or quadriceps tendon rupture EKG Interpretation (if applicable): No orders to display Discussed Patient with another provider: No. Social Determinants of Health: None Care of patient discussed with nursing team and nursing documentation reviewed. Prescriptions Written: ED Current Prescriptions Medication Dispense Auth. Provider ibuprofen (ADVIL;MOTRIN) 600 mg Oral Tablet 30 Tablet Roc Darden MD acetaminophen 325 mg Oral Tab 30 Tablet Roc Darden MD In cases where narcotics are prescribed, [facility] report was obtained and reviewed. IMPRESSION: 1. Fall, initial encounter 2. Acute pain of left knee Critical Care Time: 0 DISPOSITION: discharge Condition at Discharge/Transfer from Department: Stable Roc Darden MD Emergency Medicine 08/29/24 Roc Darden MD 08/29/242144 documented in this encounter Plan of Treatment Not on file documented as of this encounter Goals Goal Patient Goal Type Associated Problems Recent Progress Patient-Stated? Author Blood Pressure < 140/90 Blood Pressure 116/88(2024 8:11 PM EDT) Aida Colin LPN Maintain a healthy diet, exercise regularly and maintain an ideal body weight General No Cheryl Kumar RMA Stay Tobacco Free Lifestyle No Rylie Gee CCMA documented as of this encounter Procedures Procedure Name Priority Date/Time Associated Diagnosis Comments XR KNEE LEFT AP LATERAL INTERNAL AND EXTERNAL OBLIQUES NATHEN 08/29/2024 8:43 PM EDT documented in this encounter Results * XR KNEE LEFT AP LATERAL INTERNAL AND EXTERNAL OBLIQUES (08/29/2024 8:43 PM EDT) Anatomical Region Laterality Modality Knee Radiographic Jimena ging 08/29/2024 8:43 PM EDT Impressions 08/29/2024 8:47 PM EDT No acute osseous abnormality. - Note: Radiology results need to be interpreted within a comprehensive clinical context. If you have questions about the radiology report, please contact the office of the ordering clinician. Narrative 08/29/2024 8:47 PM EDT XR KNEE LEFT AP LATERAL INTERNAL AND EXTERNAL OBLIQUES, 08/29/2024 8:43 PM CLINICAL HISTORY: -knee pain, fall COMPARISON: None. PROCEDURE COMMENTS: XR KNEE LEFT AP LATERAL INTERNAL AND EXTERNAL OBLIQUES FINDINGS: Postsurgical changes related to total knee arthroplasty. No acute fracture or complication. Suspect some anterior soft tissue edema. Procedure Note Flynn Delgadillo MD - 08/29/2024 XR KNEE LEFT AP LATERAL INTERNAL AND EXTERNAL OBLIQUES, 08/29/2024 8:43PM CLINICAL HISTORY: -knee pain, fall COMPARISON: None. PROCEDURE COMMENTS: XR KNEE LEFT AP LATERAL INTERNAL AND EXTERNALOBLIQUES FINDINGS: Postsurgical changes related to total knee arthroplasty. No acute fractureor complication. Suspect some anterior soft tissue edema. IMPRESSION: No acute osseous abnormality. - Note: Radiology results need to be interpreted within a comprehensiveclinical context. If you have questions about the radiology report, please contactthe office of the ordering clinician. Roc Darden MD IMG DIAGNOSTIC IMAGIN G ORDERABLES Final Result documented in this encounter Visit Diagnoses Diagnosis Fall, initial encounter- Primary Acute pain of left knee documented in this encounter Administered Medications Inactive Administered Medications - up to 1 most recent administrations Medication Order MAR Action Action Date Dose Rate Site acetaminophen (TYLENOL) tablet 1,000 mg 1,000 mg, Oral, ONCE, 1 dose, On 08/29/24 at 2015, Maximum adult dose of acetaminophen is 4000 mg from all sources in 24 hours. Given 08/29/2024 8:10 PM EDT 1,000 mg documented in this encounter Active and Recently Administered Medications Times are shown in EDT. Scheduled Medication Order 08/27/2024 08/28/2024 08/29/2024 acetaminophen (TYLENOL) tablet 1,000 mg (COMPLETED) 1,000 mg, Oral, ONCE, 1 dose, On 08/29/24 at 2015, Maximum adult dose of acetaminophen is 4000 mg from all sources in 24 hours. 2009 (Given - Provid er: Beatriz Melara RN) documented in this encounter Orders Medications Ordered That Ayad ht Not Have Been Administered Count Last Ordered Date First Ordered Date acetaminophen (TYLENOL) tablet 1,000 mg 1 0 08/29/2024 Nursing Count Last Ordered Date First Orde red Date ED [facility] 1 08/29/2024 documented in this encounter Additional Health Concerns Assessment Noted Time PHQ-9 Depression Total Score: 2 08/18/19 23 2:45 PM EDT PHQ-2 Depression Total Score: 2 08/18/19 2:45 PM EDT documented as of this encounter Care Teams Plant Director Relationship Specialty Start Date End Date Mandeep Beckham DO [address] [place] [address] PCP - General Family Medicine 01/28/23 documented as of this encounter
--- OUTSIDE RECORDS SUMMARY | 2024-10-08 09:15 | XMS_ITS | Encounter Summary ---
Author Organization [employer] [facility] ([place], [place], [place], [place]) Address [address] [place] [address] Care Team Providers Care Forest Ranger Technician Name Role Phone Gurjit Mena MD Primary Care Provider [phone] Fausto Nieves MD Unavailable [phone] Reason for Visit * Reason Comments Knee Pain Left Encounter Details Date Type Department Care Team (Late st Contact Info) Description 10/08/2024 9:15 AM EDT Office Visit [facility] Orthopedics - [address] [phone] Ermias Obando PA-C [address] [place] [phone] S/P total knee arthroplasty, left (Primary Dx); Left knee pain; Contusion of left knee, initial encounter Social History Tobacco Use Types Packs/Day [...] living situation today? I have a [facility] place to live 06/21/2024 Think about the [...] Do you speak a language other than Amharic at ho me? No 06/21/2024 Do you [...] Sign Reading Time Taken Comments Blood Pressure 114/82 10/08/2024 9:32 AM EDT Pulse 55 10/08/2024 9:32 AM EDT Temperature - - Respiratory Rate - - Oxygen Saturation 97% 10/08/2024 9:32 AM EDT Inhaled Oxygen Concentration - - Weight 97.5 kg (215 lb) 10/08/2024 9:32 AM EDT Height 160 cm (5' 3 ) 10/08/2024 9:32 AM EDT Body Mass Index 38.09 10/08/2024 9:32 AM EDT documented in this encounter Plan of Treatment Upcoming Encounters Date Type Department Care Team (Late st Contact Info) Description 11/23/2024 10:00 AM EDT Office Visit [facility] Orthopedics - [address] [phone] Fausto Nieves MD [address] [place] [phone] Pending Results Name Type Priority Associated Diagnoses Date /Time XR knee 1 or 2 views left Imaging Routine S/P total knee arthroplasty, left Left knee pain 10/08/2024 10:01 AM EDT documented as of this encounter Visit Diagnoses Diagnosis S/P total knee arthroplasty, left- Primary Left knee pain Pain in joint, lower leg Contusion of left knee, initial encounter documented in this encounter Care Teams Forest Ranger Technician Relationship Specialty Start Date End Date Gurjit Mena MD [address] [place] [address] [place] [address] PCP - General Family Medicine 06/17/24 Fausto Nieves MD [address] [place] [address] Orthopedic Surgery 06/30/24 documented as of this encounter
--- OUTSIDE RECORDS SUMMARY | 2024-10-08 10:00 | XMS_ITS | Encounter Summary ---
Author Organization [employer] ([place], [place], [place], [place]) Address [address] [place] [address] Care Team Providers Care Cruise Staff Member Name Role Phone Gurjit Mena MD Primary Care Provider [phone] Fausto Nieves MD Unavailable Encounter Details Date Type Department Care Team (Late st Contact Info) Description 10/08/2024 10:00 AM EDT Ancillary Procedure [facility] Orthopedics - [address] [address] Ermias Obando PA-C [address] [place] [address] Arrived Social History Tobacco Use Types [...] Do you speak a language other than [place]an at [facility]? No 06/21/2024 Do you want help [...] Description 11/23/2024 10:00 AM EDT Office Visit [facility] Orthopedics - [address] [address] Fausto Nieves MD [address] [place] [address] Pending Results Name Type Priority Associated Diagnoses Date /Time XR knee 1 or 2 views left Imaging Routine S/P total knee arthroplasty, left Left knee pain 10/08/2024 10:01 AM EDT documented as of this encounter Visit Diagnoses Not on filedocumented in this encounter Care Teams Cruise Staff Member Relationship Specialty Start Date End Date Gurjit Mena MD [address] [place] [facility] [address] [place] [address] PCP - General Family Medicine 06/17/24 Fausto Nieves MD [address] [place] [address] Orthopedic Surgery 06/30/24 documented as of this encounter
--- OUTSIDE RECORDS SUMMARY | 2024-10-08 20:20 | XMS_ITS | Encounter Summary ---
Author Organization [employer] ([place], [place], [place], [place]) Address [address] [place] [address] Care Team Providers Care Pipe Coverer Name Role Phone Gurjit Mena MD Primary Care Provider [phone] Fausto Nieves MD Unavailable [phone] Reason for Visit * Reason Comments Leg Pain Swelling to left kne w with pain 10/27. Denies any injury Encounter Details Date Type Department Care Team (Late st Contact Info) Description 10/08/2024 8:20 PM EDT - 10/08/2024 10:35 PM EDT Emergency [facility] Emergency Department [address] [place] [phone] Som Crowe DO [address] [phone] Nausea and vomiting, unspecified vomiting type (Primary [...] speak a language other than [place]ian at ho [place]? No 06/21/2024 Do you want help with [...] Care Everywhere. * Nausea and Vomiting Adult [id number]-[id number] (Slovenian) documented in this encounter Medications at Time [...] She denies diarrhea. 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 I performed a substantive portion of the [...] General [address] [facility] [address] Next Steps: Follow up [facility] Emergency Department Specialty: Emergency Medicine [address] [facility] [address] Next Steps: Follow up documented in this encounter Plan of Treatment Upcoming Encounters Date Type Department Care Team (Late st Contact Info) Description 11/23/2024 10:00 AM EDT Office Visit [facility] Orthopedics - [address] [phone] Fausto Nieves MD [address] [place] [phone] documented as of this encounter Procedures [...] ATRIAL RATE (MCT) 48 BPM GE MUSE [place] Interval 198 ms GE MUSE QRS-INTERVAL (MSEC) 100 ms GE MUSE QT Interval 510 ms GE MUSE QTC Interval 455 ms GE MUSE P [place] 60 degrees GE MUSE R AXIS (MCT) 19 degrees GE MUSE T Wave [place] 20 degrees GE MUSE [place] Diagnosis Sinus bradycardia Low voltage QRS Cannot rule out Anterior infarct , age undetermined Abnormal ECG Confirmed by Emigdio CRUZ RICHARD ([id number]) on 10/09/2024 2:47:07 PM GE MUSE 10/08/2024 9:31 PM EDT 10/09/2024 2:47 PM EDT [facility] DO ECG ORDERABLES Final Result Performing Organization Address [facility] de Phone Number GE MUSE * High Sensitivity Troponin I (10/08/2024 8:56 PM EDT) Pathologist [facility] Troponin I High Sensitivity (pg/mL) 15.6 4 - 60.3 pg/mL 10/08/2024 9:26 PM EDT [facility] Comment: Troponin Result (pg/mL) *Interpretation 4-60.3 [...] 8:56 PM EDT 10/08/2024 8:59 PM EDT [employer] DO LAB BLOOD ORDERABLES Final Resul t Performing Organization Address City/[facility]/ZIP Co de Phone Number [facility] [address] [place] [address] * Lipase (10/08/2024 8:56 PM EDT) Pathologist [facility] Lipase 16 16 - 77 U/L 10/08/2024 9:26 PM EDT [facility] Blood Venipuncture / Unknown 10/08/2024 8:56 PM EDT 10/08/2024 8:59 PM EDT Koby Ramesh PA-C LAB BLOOD ORDERABLES Fi nal Result [facility] [address] [phone] * (ABNORMAL) Comprehensive metabolic panel (10/08/2024 8:56 PM EDT) Sodium 138 136 - 145 meq/L 10/08/2024 9:26 PM EDT [facility] Potassium 3.6 3.5 - 5.1 meq/L 10/08/2024 9:26 PM EDT [facility] Chloride 103 98 - 107 meq/L 10/08/2024 9:26 PM EDT [facility] CO2 29 21 - 32 meq/L 10/08/2024 9:26 PM EDT [facility] Calcium 8.7 8.5 - 10.1 mg/dL 10/08/2024 9:26 PM EDT [facility] Glucose 84 74 - 100 mg/dL 10/08/2024 9:26 PM EDT [facility] BUN 9 7 - 18 mg/dL 10/08/2024 9:26 PM EDT [facility] Creatinine 0.97 0.55 - 1.10 mg/dL 10/08/2024 9:26 PM EDT [facility] BUN/Creatinine 9 10/08/2024 9:26 PM EDT [facility] Albumin 3.4 3.4 - 5.0 g/dL 10/08/2024 9:26 PM EDT [facility] Alkaline Phosphatase 85 46 - 116 U/L 10/08/2024 9:26 PM EDT [facility] ALT 20 12 - 78 U/L 10/08/2024 9:26 PM EDT [facility] AST 14(L) 15 - 37 U/L 10/08/2024 9:26 PM EDT [facility] Total Bilirubin 0.3 0.2 - 1.0 mg/dL 10/08/2024 9:26 PM EDT [facility] Protein, Total 6.8 6.4 - 8.2 gm/dL 10/08/2024 9:26 PM EDT [facility] Anion Gap 10(L) 11 - 22 10/08/2024 9:26 PM EDT [facility] A/G Ratio 1.0 10/08/2024 9:26 PM EDT [facility] Globulin 3.4 g/dL 10/08/2024 9:26 PM EDT [facility] Osmolality Calc 273.6 mOsm/kg 9:26 PM EDT [facility] eGFR (mL/min/1.73m2) >60 >=60 mL/min/1.7 3m2 10/08/2024 9:26 PM EDT [facility] Comment:ESTIMATED GFR IS NOT ACCURATE CREATININE CLEARANCE IN PREDICTING GLOMERULAR FILTRATION RATE. ESTIMATED GFR IS NOT APPLICABLE FOR DIALYSIS PATIENTS. Blood Venipuncture / Unknown 10/08/2024 8:56 PM EDT 10/08/2024 8:59 PM EDT Koby Ramesh PA-C LAB BLOOD ORDERABLES Fi nal Result [facility] [address] [place] [address] * (ABNORMAL) CBC with Auto Diff (10/08/2024 8:56 PM EDT) WBC 8.3 4.8 - 10.8 K/ L 10/08/2024 9:08 PM EDT [facility] RBC 4.10 3.50 - 5.20 M/ L 10/08/2024 9:08 PM EDT [facility] Hemoglobin 12.8 11.7 - 15.8 GM/DL 10/08/2024 9:08 PM EDT [facility] Hematocrit 37.0 35.0 - 47.0 % 10/08/2024 9:08 PM EDT [facility] MCV 90 81 - 101 fL 10/08/2024 9:08 PM EDT [facility] MCH 31.2 27.0 - 34.0 pg 10/08/2024 9:08 PM EDT [facility] MCHC 34.6 32.0 - 36.0 GM/DL 10/08/2024 9:08 PM EDT [facility] RDW 12.4 11.5 - 14.5 % 10/08/2024 9:08 PM EDT [facility] Platelets 263 150 - 400 K/CU MM 10/08/2024 9:08 PM EDT [facility] MPV 10.3 9.4 - 12.4 fL 10/08/2024 9:08 PM EDT [facility] Nucleated Red Blood Cell 0.0 0 - 0.2 % 10/08/2024 9:08 PM EDT [facility] % Neutros 60 37 - 80 % 10/08/2024 9:08 PM EDT [facility] % Lymphs 32 10 - 50 % 10/08/2024 9:08 PM EDT [facility] % Monos 6 5 - 13 % 10/08/2024 9:08 PM EDT [facility] % Eos 2 0 - 7 % 10/08/2024 9:08 PM EDT [facility] % Baso 1 0 - 3 % 10/08/2024 9:08 PM EDT [facility] NRBC Absolute <0.01 0 - 0.012 K/ul 10/08/2024 9:08 PM EDT [facility] # Neutros 4.98 2.00 - 6.90 K/ L 10/08/2024 9:08 PM EDT [facility] # Lymphs 2.62 0.60 - 3.40 K/ L 10/08/2024 9:08 PM EDT [facility] # Monos 0.48 0.00 - 0.90 K/ L 10/08/2024 9:08 PM EDT [facility] # Eos 0.17 0.00 - 0.70 K/ L 10/08/2024 9:08 PM EDT [facility] # Baso 0.04 0.00 - 0.20 K/ L 10/08/2024 9:08 PM EDT [facility] Immature Granulocytes-Re lative 0.20 % 10/08/2024 9:08 PM EDT [facility] # IG 0.02(H) 0.00 - 0.00 K/uL 10/08/2024 9:08 PM EDT [facility] Blood Venipuncture / Unknown 10/08/2024 8:56 PM EDT 10/08/2024 8:59 PM EDT Narrative [facility] - 10/08/2024 9:08 PM EDT When [...] PA-C LAB BLOOD ORDERABLES Fi nal Result [facility] [address] [place] [address] documented in this encounter Visit Diagnoses Diagnosis [...] Betancourt) documented in this encounter Care Teams Pipe Coverer Relationship Specialty Start Date End Date Gurjit Mena MD [address] [facility] [address] PCP - General Family Medicine 06/17/24 Fausto Nieves MD [address] [place] [address] Orthopedic Surgery 06/30/24 documented as of this encounter
--- NOTE | 2024-10-11 10:06 | CA_ITS ---
FINAL REPORT CLINICAL HISTORY: edema and LLE pain x 2 weeks. 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 FINDINGS: DUPLEX VENOUS SONOGRAPHY OF THE LEFT LOWER EXTREMITY Multiple transverse and longitudinal scans were performed of the femoropopliteal deep venous system, with augmentation and compression maneuvers. HISTORY: Pain FINDINGS: Normal phasic flow was noted in the visualized deep venous system. No intraluminal increased echogenicity is noted to suggest thrombus. There is normal compression and augmentation of the venous structures. No abnormal venous collaterals are seen. IMPRESSION: No evidence of deep venous thrombosis of the left lower extremity. Reviewed, Interpreted and Dictated by Neeta Cazares MD Transcribed by Sadaf Wylie Authenticated and [facility]
--- OUTSIDE RECORDS SUMMARY | 2024-10-11 10:40 | XMS_ITS | Clinical Summary ---
Author Organization [employer] ([place], [place], [place], [place]) Address [address] [place] [address] Care Team Providers Care Software Engineer Mobile Name Role Phone Gurjit Mena MD Primary Care Provider [phone] Fausto Nieves MD Unavailable [phone] Allergies Active Allergy Reactions Criticality Noted [...] EDT - 10/08/2024 10:35 PM EDT Emergency [facility] [address] [place] [address] Som Crowe DO Nausea and vomiting, unspecified vomiting type (Primary Dx); Chronic knee pain after total replacement of left knee joint Discharge Disposition: Home or Self Care 10/08/2024 10:00 AM EDT Ancillary Procedure [address] [address] Ermias Obando PA-C Arrived 10/08/2024 9:15 AM EDT Office Visit [facility] - [address] [address] Ermias Obando PA-C S/P total knee arthroplasty, left (Primary Dx); Left knee pain; Contusion of left knee, initial encounter 10/08/2024 Travel 08/26/2024 11:00 AM EDT Treatment [facility] [address] [place] [phone] Tejas Richard E, PT Status post left knee replacement with ANNA (Primary Dx) 08/26/2024 Travel 08/09/2024 10:15 AM EDT Treatment [facility] [address] [place] [phone] Du You, PATIENT CARE ASSISTANT Status post left knee replacement with ANNA (Primary Dx) 08/09/2024 Travel 08/06/2024 10:15 AM EDT Treatment [facility] [address] [place] [phone] Du You, PATIENT CARE ASSISTANT Status post left knee replacement with ANNA (Primary Dx) 08/06/2024 Travel 08/02/2024 10:15 AM EDT Treatment [facility] [address] [place] [phone] Du You, PATIENT CARE ASSISTANT Status post left knee replacement with ANNA (Primary Dx) 08/02/2024 Travel 07/30/2024 10:15 AM EDT Treatment [facility] [address] [place] [phone] Du You, PATIENT CARE ASSISTANT Status post left knee replacement with ANNA (Primary Dx) 07/30/2024 Travel 07/28/2024 10:15 AM EDT Treatment [facility] [address] [place] [phone] Du You, PATIENT CARE ASSISTANT Status post left knee replacement with ANNA (Primary Dx) 07/28/2024 Travel 07/20/2024 9:30 AM EDT Treatment [facility] [address] [place] [phone] Murali Bear, PT Status post left knee replacement with ANNA (Primary Dx) 07/20/2024 Travel 07/18/2024 Refill [facility] [place] [address] [place] [phone] Fausto Nieves MD 07/15/2024 8:48 PM EDT - 07/15/2024 11:00 PM EDT Emergency [facility] [address] [place] [address] Patti English MD Nausea with vomiting (Primary Dx); Diarrhea; Viral infection; Nausea and vomiting, unspecified vomiting type; Diarrhea, unspecified type Discharge Disposition: Home or Self Care 07/15/2024 Travel 07/13/2024 10:15 AM EDT Treatment [facility] [address] [place] [phone] Murali Bear, PT Status post left knee [...] Do you speak a language other than Syrian at [facility]? [...] Description 11/23/2024 10:00 AM EDT Office Visit [facility] - [address] [address] Fausto Nieves MD [address] [place] [address] Health Maintenance Due Date Last Done [...] 04/25/2029 04/26/2019 Medical Devices Implanted Type Area Timber Management Assistant Device Identifier Shelf Expiration Date Model / Serial / Lot Comp Triathlon Tib Trita Sz3 5536-B-300 - [id number] Implanted:Qt y: 1 on 06/21/2024 by Fausto Nieves MD at [facility] TOTAL JOINT CONSTRUCT Left: Knee LEANDER:[employer] [id number] 10/06/2028 5536-B-30 0 / / [id number] Patella Press Fit Tritanium 5552-L-299 - [id number] Implanted:Qt y: 1 on 06/21/2024 by Fausto Nieves MD at [facility] TOTAL JOINT [employer]STRUCT Left: Knee LEANDER:[employer] [id number] 02/17/2029 5552-L-29 9 / / [id number] Comp Fem P/A Cr Beaded Sz3 L 5517-F-301 - [id number] Implanted:Qt y: 1 on 06/21/2024 by Fausto Nieves MD at [facility] TOTAL JOINT [employer]STRU[employer] Left: Knee LEANDER:[employer] [id number] 02/07/2029 5517-F-30 1 / / [id number] 3000 Insrt Tib Bearing #3 10mm 1758-U-485-E - [id number] Implanted:Qt y: 1 on 06/21/2024 by Fausto Nieves MD at [facility] TOTAL JOINT [employer]STRUCT Left: Knee LEANDER:[employer] [id number] 11/22/2028 5531-G-31 0-E / / [id number] Loop Recorder Explanted Type Area Timber Management Assistant Device Identifier Shelf Expiration Date Model / Serial / Lot Pin Bone [id number] Strl [id number] - [id number] Explanted:Qty: 1 on 06/21/2024 at [facility] IMPLANTS Left: Knee LEANDER:[employer] 02/25/2029 [id number] / / [id number] Pin Bone [id number] Strl [id number] - [id number] Explanted:Qty: 1 on 06/21/2024 at [facility] IMPLANTS Left: Knee LEANDER:[employer] 03/10/2029 [id number] / / [id number] Procedures Procedure Name Priority Date/Time Associated Diagnosis [...] ATRIAL RATE (MCT) 48 BPM GE MUSE WI Interval 198 ms GE MUSE QRS-INTERVAL (MSEC) 100 ms GE MUSE QT Interval 510 ms GE MUSE QTC Interval 455 ms GE MUSE P [place] 60 degrees GE MUSE R AXIS (MCT) 19 degrees GE MUSE T Wave [place] 20 degrees GE MUSE [place] Diagnosis Sinus bradycardia Low voltage QRS Cannot [...] 10.8 K/ L 10/08/2024 9:08 PM EDT [facility] RBC 4.10 3.50 - 5.20 M/ L 10/08/2024 9:08 PM EDT [facility] Hemoglobin 12.8 11.7 - 15.8 GM/DL 10/08/2024 9:08 PM EDT [facility] Hematocrit 37.0 35.0 - 47.0 % 10/08/2024 9:08 PM EDT [facility] MCV 90 81 - 101 fL 10/08/2024 9:08 PM EDT [facility] MCH 31.2 27.0 - 34.0 pg 10/08/2024 9:08 PM EDT [facility] MCHC 34.6 32.0 - 36.0 GM/DL 10/08/2024 9:08 PM EDT [facility] RDW 12.4 11.5 - 14.5 % 10/08/2024 9:08 PM EDT [facility] Platelets 263 150 - 400 K/CU MM 10/08/2024 9:08 PM EDT [facility] MPV 10.3 9.4 - 12.4 fL 10/08/2024 9:08 PM EDT [facility] Nucleated Red Blood Cell 0.0 0 - 0.2 % 10/08/2024 9:08 PM EDT [facility] % Neutros 60 37 - 80 % 10/08/2024 9:08 PM EDT [facility] % Lymphs 32 10 - 50 % 10/08/2024 9:08 PM EDT [facility] % Monos 6 5 - 13 % 10/08/2024 9:08 PM EDT [facility] % Eos 2 0 - 7 % 10/08/2024 9:08 PM EDT [facility] % Baso 1 0 - 3 % 10/08/2024 9:08 PM EDT [facility] NRBC Absolute <0.01 0 - 0.012 K/ul 10/08/2024 9:08 PM EDT [facility] # Neutros 4.98 2.00 - 6.90 K/ L 10/08/2024 9:08 PM EDT [facility] # Lymphs 2.62 0.60 - 3.40 K/ L 10/08/2024 9:08 PM EDT [facility] # Monos 0.48 0.00 - 0.90 K/ L 10/08/2024 9:08 PM EDT [facility] # Eos 0.17 0.00 - 0.70 K/ L 10/08/2024 9:08 PM EDT [facility] # Baso 0.04 0.00 - 0.20 K/ L 10/08/2024 9:08 PM EDT [facility] Immature Granulocytes-Re lative 0.20 % 10/08/2024 9:08 PM EDT [facility] # IG 0.02(H) 0.00 - 0.00 K/uL 10/08/2024 9:08 PM EDT [facility] Blood Venipuncture / Unknown 10/08/2024 8:56 PM EDT 10/08/2024 8:59 PM EDT Narrative [facility] - 10/08/2024 9:08 PM [...] ORDERABLES Fi nal Result Performing Organization Address [facility] de Phone Number [facility] [address] [place] [address] * High Sensitivity Troponin I (10/08/2024 8:56 PM EDT) [facility] Troponin I High Sensitivity (pg/mL) 15.6 4 - 60.3 pg/mL 10/08/2024 9:26 PM EDT [facility] Comment: Troponin Result (pg/mL) [...] Final Resul t Performing Organization Address [facility] Phone Number [facility] [address] [place] [address] * Lipase (10/08/2024 8:56 PM EDT) Only the most recent of2 resultswithin the time period is included. [facility] Lipase 16 16 - 77 U/L 10/08/2024 9:26 PM EDT [facility] Blood Venipuncture / Unknown 10/08/2024 8:56 PM EDT 10/08/2024 8:59 PM EDT us Koby Ramesh PA-C LAB BLOOD ORDERABLES Fi nal Result [facility] [address] [place], [place] [address] [phone] * (ABNORMAL) Comprehensive metabolic panel (10/08/2024 8:56 PM EDT) Sodium 138 136 - 145 meq/L 10/08/2024 9:26 PM EDT [facility] Potassium 3.6 3.5 - 5.1 meq/L 10/08/2024 9:26 PM EDT [facility] Chloride 103 98 - 107 meq/L 10/08/2024 9:26 PM EDT [facility] CO2 29 21 - 32 meq/L 10/08/2024 9:26 PM EDT [facility] Calcium 8.7 8.5 - 10.1 mg/dL 10/08/2024 9:26 PM EDT [facility] Glucose 84 74 - 100 mg/dL 10/08/2024 9:26 PM EDT [facility] BUN 9 7 - 18 mg/dL 10/08/2024 9:26 PM EDT [facility] Creatinine 0.97 0.55 - 1.10 mg/dL 10/08/2024 9:26 PM EDT [facility] BUN/Creatinine 9 10/08/2024 9:26 PM EDT [facility] Albumin 3.4 3.4 - 5.0 g/dL 10/08/2024 9:26 PM EDT [facility] Alkaline Phosphatase 85 46 - 116 U/L 10/08/2024 9:26 PM EDT [facility] ALT 20 12 - 78 U/L 10/08/2024 9:26 PM EDT [facility] AST 14(L) 15 - 37 U/L 10/08/2024 9:26 PM EDT [facility] Total Bilirubin 0.3 0.2 - 1.0 mg/dL 10/08/2024 9:26 PM EDT [facility] Protein, Total 6.8 6.4 - 8.2 gm/dL 10/08/2024 9:26 PM EDT [facility] Anion Gap 10(L) 11 - 22 10/08/2024 9:26 PM EDT [facility] A/G Ratio 1.0 10/08/2024 9:26 PM EDT [facility] Globulin 3.4 g/dL 10/08/2024 9:26 PM EDT [facility] Osmolality Calc 273.6 mOsm/kg 9:26 PM EDT [facility] eGFR (mL/min/1.73m2) >60 >=60 mL/min/1.7 3m2 10/08/2024 9:26 PM EDT [facility] Comment:ESTIMATED GFR IS NOT ACCURATE CREATININE CLEARANCE IN PREDICTING GLOMERULAR FILTRATION RATE. ESTIMATED GFR IS NOT APPLICABLE FOR DIALYSIS PATIENTS. Blood Venipuncture / Unknown 10/08/2024 8:56 PM EDT 10/08/2024 8:59 PM EDT Koby Ramesh PA-C LAB BLOOD ORDERABLES Fi nal Result [facility] [address] [place] [address], [facility] [phone] * Urinalysis, Reflex Microscopic and Culture If Indicated (07/15/2024 10:18 PM EDT) Color, UA Straw 07/15/2024 10:39 PM EDT [facility] Clarity, UA Clear 07/15/2024 10:39 PM EDT [facility] Specific [place], UA 1.020 1.002 - 1.030 07/15/2024 10:39 PM EDT [facility] pH, UA 6.0 5.0 - 9.0 07/15/2024 10:39 PM EDT [facility] Leukocytes, UA Negative Negative 07/15/2024 10:39 PM EDT [facility] Nitrite, UA Negative Negative 07/15/2024 10:39 PM EDT [facility] Protein, UA Negative Negative 07/15/2024 10:39 PM EDT [facility] Glucose, UA Negative Negative 07/15/2024 10:39 PM EDT [facility] Ketones, UA Negative Negative 07/15/2024 10:39 PM EDT [facility] Bilirubin, UA Negative Negative 07/15/2024 10:39 PM EDT [facility] Blood, UA Negative Negative 07/15/2024 10:39 PM EDT [facility] Urobilinogen, UA 0.2 mg/dL Normal 07/15/2024 10:39 PM EDT [facility] Specimen Source Urine, Clean Catch 07/15/2024 10:39 PM EDT [facility] Urine URINE SPECIMEN COLLECTION, CLEAN CATCH / Unknown 07/15/2024 10:18 PM EDT 07/15/2024 10:25 PM EDT us Patti English MD URINE ORDERABLES Final Result [facility] [address] [place] [address] * (ABNORMAL) Hepatic function panel (07/15/2024 9:21 PM EDT) Protein, Total 7.4 6.4 - 8.2 gm/dL 07/15/2024 9:55 PM EDT [facility] Albumin 3.5 3.4 - 5.0 g/dL 07/15/2024 9:55 PM EDT [facility] Total Bilirubin 0.3 0.2 - 1.0 mg/dL 07/15/2024 9:55 PM EDT [facility] Bilirubin, Direct 0.1 0.1 - 0.2 mg/dL 07/15/2024 9:55 PM EDT [facility] Alkaline Phosphatase 128(H) 46 - 116 U/L 07/15/2024 9:55 PM EDT [facility] Globulin 3.9 g/dL 07/15/2024 9:55 PM EDT [facility] A/G Ratio 0.9 07/15/2024 9:55 PM EDT [facility] AST 20 15 - 37 U/L 07/15/2024 9:55 PM EDT [facility] Comment:[employer] has become aware of sulfasalazine and sulfapyridine [...] - 78 U/L 07/15/2024 9:55 PM EDT [facility] Comment:[employer] has become aware of sulfasalazine and sulfapyridine [...] MD LAB BLOOD ORDERABLES Final Resu lt [facility] [address] [id number], [facility] [phone] * (ABNORMAL) Basic Metabolic Panel (07/15/2024 9:21 PM EDT) Sodium 135(L) 136 - 145 meq/L 07/15/2024 9:55 PM EDT [facility] Potassium 3.7 3.5 - 5.1 meq/L 07/15/2024 9:55 PM EDT [facility] Chloride 103 98 - 107 meq/L 07/15/2024 9:55 PM EDT [facility] CO2 26 21 - 32 meq/L 07/15/2024 9:55 PM EDT [facility] Anion Gap 10(L) 11 - 22 07/15/2024 9:55 PM EDT [facility] BUN 8 7 - 18 mg/dL 07/15/2024 9:55 PM EDT [facility] Creatinine 1.01 0.55 - 1.10 mg/dL 07/15/2024 9:55 PM EDT [facility] BUN/Creatinine 8 07/15/2024 9:55 PM EDT [facility] Glucose 113(H) 70 - 99 mg/dL 07/15/2024 9:55 PM EDT [facility] Calcium 8.9 8.5 - 10.1 mg/dL 07/15/2024 9:55 PM EDT [facility] Osmolality Calc 269.2 mOsm/kg 9:55 PM EDT [facility] eGFR (mL/min/1.73m2) >60 >=60 mL/min/1.7 3m2 07/15/2024 9:55 PM EDT [facility] Comment:eGFR of <60 suggests chronic kidney disease if found over a 3 month period of time. eGFR <15 indicates renal failure. Blood Venipuncture / Unknown 07/15/2024 9:21 PM EDT 07/15/2024 9:31 PM EDT us Patti English MD LAB BLOOD ORDERABLES Final Resu lt [facility] [address] [place] [address], [facility] [phone] from Last 3 Months Insurance [id number] (Home) [address] [place] [address] [employer] MEDICA[employer] Advance Directives For more information, please contact: [phone] * Full Code (Latest Code Status on File) Date Activated Date Inactivated Comments 06/21/2024 9:24 AM 06/22/2024 2:30 PM * Full Code Date Activated Date Inactivated Comments 06/21/2024 5:31 AM 06/21/2024 9:24 AM Care Teams Software Engineer Mobile Relationship Specialty Start Date End Date Gurjit Mena MD [address] [place] [address] PCP - General Family Medicine 06/17/24 Fausto Nieves MD [address] [place] [address] Orthopedic Surgery 06/30/24
--- OUTSIDE RECORDS SUMMARY | 2024-10-11 10:40 | XMS_ITS | Encounter Summary ---
Author Organization [employer] ([place], [place], [place], [place]) Address [address] [place] [address] Care Team Providers Care Military Pilot Name Role Phone Gurjit Mena MD Primary Care Provider [phone] Fausto Nieves MD Unavailable [phone] Encounter Details Date Type Department Care [...] Do you speak a language other than [place] at [facility]? No 06/21/2024 Do [...] Description 11/23/2024 10:00 AM EDT Office Visit [facility] - [address] [address] Fausto Nieves MD [address] [place] [phone] documented as of this encounter Visit Diagnoses Not on filedocumented in this encounter Care Teams Military Pilot Relationship Specialty Start Date End Date Gurjit Mena MD [address] [facility] [address] [address] PCP - General Family Medicine 06/17/24 Fausto Nieves MD [address] [place] [address] Orthopedic Surgery 06/30/24 documented as of this encounter
--- OUTSIDE RECORDS SUMMARY | 2024-10-11 10:40 | XMS_ITS | Encounter Summary ---
Author Organization [employer] ([place], [place], [place], [place]) Address [address] [place] [address] Care Team Providers Care Optical Goods Drill Operator Name Role Phone Gurjit Mena MD Primary Care Provider [phone] Fausto Nieves MD Unavailable [phone] Encounter Details Date Type Department Care [...] Do you speak a language other than [place] at [facility]? No 06/21/2024 Do you want help [...] Description 11/23/2024 10:00 AM EDT Office Visit [facility] - [address] [address] Fausto Nieves MD [address] [place] [address] documented as of this encounter Visit Diagnoses Not on filedocumented in this encounter Care Teams Optical Goods Drill Operator Relationship Specialty Start Date End Date Gurjit Mena MD [address] [facility] [address] [address] PCP - General Family Medicine 06/17/24 Fausto Nieves MD [address] [place] [address] Orthopedic Surgery 06/30/24 documented as of this encounter
--- OUTSIDE RECORDS SUMMARY | 2024-10-11 10:40 | XMS_ITS | Referral Summary ---
Author Organization [employer] ([place], [place], [place], [place]) Address [address] [place] [address] Care Team Providers Care Seasoning Sprayer Name Role Phone Gurjit Mena MD Primary Care Provider [phone] Fausto Nieves MD Unavailable [phone] Encounters Date Type Department Care Team Description 10/08/2024 Travel 10/08/2024 8:20 PM EDT - 10/08/2024 10:35 PM EDT Emergency [facility] Emergency Department [address] [place] [phone] Som Crowe DO Nausea and vomiting, unspecified vomiting type (Primary Dx); Chronic knee pain after total replacement of left knee joint Discharge Disposition: Home or Self Care 10/08/2024 10:00 AM EDT Ancillary Procedure [address] [address] Ermias Obando PA-C Arrived 10/08/2024 9:15 AM EDT Office Visit [address] [address] Ermias Obando PA-C S/P total knee arthroplasty, left (Primary Dx); Left knee pain; Contusion of left knee, initial encounter 08/26/2024 Travel 08/26/2024 11:00 AM EDT Treatment [facility] OP Physical Therapy [address] [place] [phone] Tejas Richard, PT Status post left knee replacement with ANNA (Primary Dx) 08/09/2024 Travel 08/09/2024 10:15 AM EDT Treatment [facility] OP Physical Therapy [address] [place] [phone] Du You, AUTOMOTIVE DIAGNOSTIC TECHNICIAN Status post left knee replacement with ANNA (Primary Dx) 08/06/2024 Travel 08/06/2024 10:15 AM EDT Treatment [facility] OP Physical Therapy [address] [place] [phone] Du You, AUTOMOTIVE DIAGNOSTIC TECHNICIAN Status post left knee replacement with ANNA (Primary Dx) 08/02/2024 Travel 08/02/2024 10:15 AM EDT Treatment [facility] OP Physical Therapy [address] [place] [phone] Du You, AUTOMOTIVE DIAGNOSTIC TECHNICIAN Status post left knee replacement with ANNA (Primary Dx) 07/30/2024 Travel 07/30/2024 10:15 AM EDT Treatment [facility] OP Physical Therapy [address] [place] [phone] Du You, AUTOMOTIVE DIAGNOSTIC TECHNICIAN Status post left knee replacement with ANNA (Primary Dx) 07/28/2024 Travel 07/28/2024 10:15 AM EDT Treatment [facility] OP Physical Therapy [address] [place] [phone] Du You, AUTOMOTIVE DIAGNOSTIC TECHNICIAN Status post left knee replacement with ANNA (Primary Dx) 07/20/2024 Travel 07/20/2024 9:30 AM EDT Treatment [facility] OP Physical Therapy [address] [place] [phone] Murali Bear, PT Status post left knee replacement with ANNA (Primary Dx) 07/18/2024 [facility] [address] [place] [address] Fausto Nieves MD 07/15/2024 Travel 07/15/2024 8:48 PM EDT - 07/15/2024 11:00 PM EDT Emergency [facility] Emergency Department [address] [place] [address] Patti English MD Nausea with vomiting (Primary Dx); Diarrhea; Viral infection; Nausea and vomiting, unspecified vomiting type; Diarrhea, unspecified type Discharge Disposition: Home or Self Care 07/13/2024 Travel 07/13/2024 10:15 AM EDT Treatment [facility] OP Physical Therapy [address] [place] [address] Murali Bear, PT Status post [...] the past 12 months, has t he [employer], gas, oil, or water [employer] threatened to shut off services in your [...] Do you speak a language other than [place]ian at [facility]? No [...] Description 11/23/2024 10:00 AM EDT Office Visit [facility] Orthopedics - [address] [phone] Fausto Nieves MD [address] [place] [address] Medical Devices Implanted Type Area Assistant Property Manager Device Identifier Shelf Expiration Date Model / Serial / Lot Comp Triathlopaige Michaud Sz3 5536-B-300 - [id number] Implanted:Qt y: 1 on 06/21/2024 by Fausto Nieves MD at [facility] TOTAL JOINT CONSTRUCT Left: Knee LEANDER:[employer] [id number] 10/06/2028 5536-B-30 0 / / [id number] Patella Press Fit Tritanium 5552-L-299 - [id number] Implanted:Qt y: 1 on 06/21/2024 by Fausto Nieves MD at [facility] TOTAL JOINT [employer]STRU[employer] Left: Knee LEANDER:[employer] [id number] 02/17/2029 5552-L-29 9 / / [id number] Comp Fem P/A Cr Beaded Sz3 L 5517-F-301 - [id number] Implanted:Qt y: 1 on 06/21/2024 by Fausto Nieves MD at [facility] TOTAL JOINT CONSTRUCT Left: Knee LEANDER:[employer] [id number] 02/07/2029 5517-F-30 1 / / [id number] 3000 Insrt Tib Bearing #3 10mm 7175-H-575-E - [id number] Implanted:Qt y: 1 on 06/21/2024 by Fausto Nieves MD at [facility] TOTAL JO[employer]STRU[employer] Left: Knee LEANDER:[employer] [id number] 11/22/2028 5531-G-31 0-E / / [id number] Loop Recorder Explanted Type Area Assistant Property Manager Device Identifier Shelf Expiration Date Model / Serial / Lot Pin Bone [id number] Strl [id number] - [id number] Explanted:Qty: 1 on 06/21/2024 at [facility] IMPLANTS Left: Knee LEANDER:[employer] 02/25/2029 [id number] / / [id number] Pin Bone [id number] Strl [id number] - [id number] Explanted:Qty: 1 on 06/21/2024 at [facility] IMPLANTS Left: Knee LEANDER:[employer] 03/10/2029 [id number] / / [id number] Procedures Procedure Name Priority Date/Time Associated Diagnosis [...] ATRIAL RATE (MCT) 48 BPM GE MUSE SC Interval 198 ms GE MUSE QRS-INTERVAL (MSEC) 100 ms GE MUSE QT Interval 510 ms GE MUSE QTC Interval 455 ms GE MUSE P [place] 60 degrees GE MUSE R AXIS (MCT) 19 degrees GE MUSE T Wave [place] 20 degrees GE MUSE Stanley Diagnosis Sinus bradycardia Low voltage QRS Cannot [...] 10.8 K/ L 10/08/2024 9:08 PM EDT [facility] RBC 4.10 3.50 - 5.20 M/ L 10/08/2024 9:08 PM EDT [facility] Hemoglobin 12.8 11.7 - 15.8 GM/DL 10/08/2024 9:08 PM EDT [facility] Hematocrit 37.0 35.0 - 47.0 % 10/08/2024 9:08 PM EDT [facility] MCV 90 81 - 101 fL 10/08/2024 9:08 PM EDT [facility] MCH 31.2 27.0 - 34.0 pg 10/08/2024 9:08 PM EDT [facility] MCHC 34.6 32.0 - 36.0 GM/DL 10/08/2024 9:08 PM EDT [facility] RDW 12.4 11.5 - 14.5 % 10/08/2024 9:08 PM EDT [facility] Platelets 263 150 - 400 K/CU MM 10/08/2024 9:08 PM EDT [facility] MPV 10.3 9.4 - 12.4 fL 10/08/2024 9:08 PM EDT [facility] Nucleated Red Blood Cell 0.0 0 - 0.2 % 10/08/2024 9:08 PM EDT [facility] % Neutros 60 37 - 80 % 10/08/2024 9:08 PM EDT [facility] % Lymphs 32 10 - 50 % 10/08/2024 9:08 PM EDT [facility] % Monos 6 5 - 13 % 10/08/2024 9:08 PM EDT [facility] % Eos 2 0 - 7 % 10/08/2024 9:08 PM EDT [facility] % Baso 1 0 - 3 % 10/08/2024 9:08 PM EDT [facility] NRBC Absolute <0.01 0 - 0.012 K/ul 10/08/2024 9:08 PM EDT [facility] # Neutros 4.98 2.00 - 6.90 K/ L 10/08/2024 9:08 PM EDT [facility] # Lymphs 2.62 0.60 - 3.40 K/ L 10/08/2024 9:08 PM EDT [facility] # Monos 0.48 0.00 - 0.90 K/ L 10/08/2024 9:08 PM EDT [facility] # Eos 0.17 0.00 - 0.70 K/ L 10/08/2024 9:08 PM EDT [facility] # Baso 0.04 0.00 - 0.20 K/ L 10/08/2024 9:08 PM EDT [facility] Immature Granulocytes-Re lative 0.20 % 10/08/2024 9:08 PM EDT [facility] # IG 0.02(H) 0.00 - 0.00 K/uL 10/08/2024 9:08 PM EDT [facility] Blood Venipuncture / Unknown 10/08/2024 8:56 PM EDT 10/08/2024 8:59 PM EDT Narrative [facility] - 10/08/2024 9:08 PM EDT [...] PA-C LAB BLOOD ORDERABLES Fi nal Result [facility] [address] [place] [address] * High Sensitivity Troponin I (10/08/2024 8:56 PM EDT) Troponin I High Sensitivity (pg/mL) 15.6 4 - 60.3 pg/mL 10/08/2024 9:26 PM EDT [facility] Comment: Troponin Result (pg/mL) *Interpretation [...] ORDERABLES Final Resul t Performing Organization Address City/[facility] Co de Phone Number [facility] [address] [place] [address] * Lipase (10/08/2024 8:56 PM EDT) Only the most recent of2 resultswithin the time period is included. Lipase 16 16 - 77 U/L 10/08/2024 9:26 PM EDT [facility] Blood Venipuncture / Unknown 10/08/2024 8:56 PM EDT 10/08/2024 8:59 PM EDT Koby Ramesh PA-C LAB BLOOD ORDERABLES Fi nal Result Performing Organization Address City/[facility]/ZIP Co de Phone Number [facility] [address] [place] [address] * (ABNORMAL) Comprehensive metabolic panel (10/08/2024 8:56 PM EDT) Sodium 138 136 - 145 meq/L 10/08/2024 9:26 PM EDT [facility] Potassium 3.6 3.5 - 5.1 meq/L 10/08/2024 9:26 PM EDT [facility] Chloride 103 98 - 107 meq/L 10/08/2024 9:26 PM EDT [facility] CO2 29 21 - 32 meq/L 10/08/2024 9:26 PM EDT [facility] Calcium 8.7 8.5 - 10.1 mg/dL 10/08/2024 9:26 PM EDT [facility] Glucose 84 74 - 100 mg/dL 10/08/2024 9:26 PM EDT [facility] BUN 9 7 - 18 mg/dL 10/08/2024 9:26 PM EDT [facility] Creatinine 0.97 0.55 - 1.10 mg/dL 10/08/2024 9:26 PM EDT [facility] BUN/Creatinine 9 10/08/2024 9:26 PM EDT [facility] Albumin 3.4 3.4 - 5.0 g/dL 10/08/2024 9:26 PM EDT [facility] Alkaline Phosphatase 85 46 - 116 U/L 10/08/2024 9:26 PM EDT [facility] ALT 20 12 - 78 U/L 10/08/2024 9:26 PM EDT [facility] AST 14(L) 15 - 37 U/L 10/08/2024 9:26 PM EDT [facility] Total Bilirubin 0.3 0.2 - 1.0 mg/dL 10/08/2024 9:26 PM EDT [facility] Protein, Total 6.8 6.4 - 8.2 gm/dL 10/08/2024 9:26 PM EDT [facility] Anion Gap 10(L) 11 - 22 10/08/2024 9:26 PM EDT [facility] A/G Ratio 1.0 10/08/2024 9:26 PM EDT [facility] Globulin 3.4 g/dL 10/08/2024 9:26 PM EDT [facility] Osmolality Calc 273.6 mOsm/kg 9:26 PM EDT [facility] eGFR (mL/min/1.73m2) >60 >=60 mL/min/1.7 3m2 10/08/2024 9:26 PM EDT [facility] Comment:ESTIMATED GFR IS NOT ACCURATE CREATININE CLEARANCE IN PREDICTING GLOMERULAR FILTRATION RATE. ESTIMATED GFR IS NOT APPLICABLE FOR DIALYSIS PATIENTS. Blood Venipuncture / Unknown 10/08/2024 8:56 PM EDT 10/08/2024 8:59 PM EDT Koby Ramesh PA-C LAB BLOOD ORDERABLES Fi nal Result Performing Organization Address City/[facility] Co de Phone Number [facility] [address] [id number], [facility] [phone] * Urinalysis, Reflex Microscopic and Culture If Indicated (07/15/2024 10:18 PM EDT) Color, UA Straw 07/15/2024 10:39 PM EDT [facility] Clarity, UA Clear 07/15/2024 10:39 PM EDT [facility] Specific [place], UA 1.020 1.002 - 1.030 07/15/2024 10:39 PM EDT [facility] pH, UA 6.0 5.0 - 9.0 07/15/2024 10:39 PM EDT [facility] Leukocytes, UA Negative Negative 07/15/2024 10:39 PM EDT [facility] Nitrite, UA Negative Negative 07/15/2024 10:39 PM EDT [facility] Protein, UA Negative Negative 07/15/2024 10:39 PM EDT [facility] Glucose, UA Negative Negative 07/15/2024 10:39 PM EDT [facility] Ketones, UA Negative Negative 07/15/2024 10:39 PM EDT [facility] Bilirubin, UA Negative Negative 07/15/2024 10:39 PM EDT [facility] Blood, UA Negative Negative 07/15/2024 10:39 PM EDT [facility] Urobilinogen, UA 0.2 mg/dL Normal 07/15/2024 10:39 PM EDT [facility] Specimen Source Urine, Clean Catch 07/15/2024 10:39 PM EDT [facility] Urine URINE SPECIMEN COLLECTION, CLEAN CATCH / Unknown 07/15/2024 10:18 PM EDT 07/15/2024 10:25 PM EDT Patti English MD URINE ORDERABLES Final Result [facility] [address] [place] [address], [facility] [phone] * (ABNORMAL) Hepatic function panel (07/15/2024 9:21 PM EDT) Protein, Total 7.4 6.4 - 8.2 gm/dL 07/15/2024 9:55 PM EDT [facility] Albumin 3.5 3.4 - 5.0 g/dL 07/15/2024 9:55 PM EDT [facility] Total Bilirubin 0.3 0.2 - 1.0 mg/dL 07/15/2024 9:55 PM EDT [facility] Bilirubin, Direct 0.1 0.1 - 0.2 mg/dL 07/15/2024 9:55 PM EDT [facility] Alkaline Phosphatase 128(H) 46 - 116 U/L 07/15/2024 9:55 PM EDT [facility] Globulin 3.9 g/dL 07/15/2024 9:55 PM EDT [facility] A/G Ratio 0.9 07/15/2024 9:55 PM EDT [facility] AST 20 15 - 37 U/L 07/15/2024 9:55 PM EDT [facility] Comment:[employer] has become aware of sulfasalazine and sulfapyridine [...] 07/15/2024 9:55 PM EDT [facility] Comment:[employer] has become aware of sulfasalazine and sulfapyridine [...] ORDERABLES Final Resu lt [facility] [address] [place] [address] * (ABNORMAL) Basic Metabolic Panel (07/15/2024 9:21 PM EDT) Sodium 135(L) 136 - 145 meq/L 07/15/2024 9:55 PM EDT [facility] Potassium 3.7 3.5 - 5.1 meq/L 07/15/2024 9:55 PM EDT [facility] Chloride 103 98 - 107 meq/L 07/15/2024 9:55 PM EDT [facility] CO2 26 21 - 32 meq/L 07/15/2024 9:55 PM EDT [facility] Anion Gap 10(L) 11 - 22 07/15/2024 9:55 PM EDT [facility] BUN 8 7 - 18 mg/dL 07/15/2024 9:55 PM EDT [facility] Creatinine 1.01 0.55 - 1.10 mg/dL 07/15/2024 9:55 PM EDT [facility] BUN/Creatinine 8 07/15/2024 9:55 PM EDT [facility] Glucose 113(H) 70 - 99 mg/dL 07/15/2024 9:55 PM EDT [facility] Calcium 8.9 8.5 - 10.1 mg/dL 07/15/2024 9:55 PM EDT [facility] Osmolality Calc 269.2 mOsm/kg 9:55 PM EDT [facility] eGFR (mL/min/1.73m2) >60 >=60 mL/min/1.7 3m2 07/15/2024 9:55 PM EDT [facility] Comment:eGFR of <60 suggests chronic kidney disease if found over a 3 month period of time. eGFR <15 indicates renal failure. Blood Venipuncture / Unknown 07/15/2024 9:21 PM EDT 07/15/2024 9:31 PM EDT us Patti English MD LAB BLOOD ORDERABLES Final Resu lt [facility] [address] [place] [address], [facility] [phone] from Last 3 Months Insurance [id number] (Home) [address] [place] [address] [facility] MEDICAID Advance Directives For more information, please contact: [phone] * Full Code (Latest Code Status on File) Date Activated Date Inactivated Comments 06/21/2024 9:24 AM 06/22/2024 2:30 PM * Full Code Date Activated Date Inactivated Comments 06/21/2024 5:31 AM 06/21/2024 9:24 AM Care Teams Seasoning Sprayer Relationship Specialty Start Date End Date Gurjit Mena MD [address] [facility] [address] [place] [address] PCP - General Family Medicine 06/17/24 Fausto Nieves MD [address] [place] [address] Orthopedic Surgery 06/30/24
--- OUTSIDE RECORDS SUMMARY | 2024-10-11 10:40 | XMS_ITS | Encounter Summary ---
Author Organization [employer] ([place], [place], [place], [place]) Address [address] [place] [address] Care Team Providers Care Coat Joiner Lockstitch Name Role Phone Gurjit Mena MD Primary Care Provider [phone] Fausto Nieves MD Unavailable Reason for Visit * Reason Comments Medication Refill Encounter Details Date Type Department Care Team (Late st Contact Info) Description 07/18/2024 Refill [facility] Orthopedics - [address] [address] Fuasto Nieves MD [address] [place] [address] Social History Tobacco Use Types Packs/Day [...] Do you speak a language other than [place]ive[place] at [facility]? No 06/21/2024 Do you want [...] Description 11/23/2024 10:00 AM EDT Office Visit [facility] Orthopedics - [address] [phone] Fausto Nieves MD [address] [place] [phone] documented as of this encounter Visit Diagnoses Not on filedocumented in this encounter Care Teams Coat Joiner Lockstitch Relationship Specialty Start Date End Date Gurjit Mena MD [address] [place] [address] [place] [address] PCP - General Family Medicine 06/17/24 Fausto Nieves MD [address] [place] [address] Orthopedic Surgery 06/30/24 documented as of this encounter
--- OUTSIDE RECORDS SUMMARY | 2024-10-11 10:40 | XMS_ITS | Clinical Summary ---
Author Organization [facility] Address [address] [place] [address] Phone Care Team Providers Care Household Personal Assistant Name Role Phone Mandeep Beckham DO Primary Care Provider [phone] Allergies Active Allergy Reactions Criticality Noted Date [...] ipratropium (ATROVENT) 21 mcg (0.03 %) Nasl Coats, Non-AerosolIndicat ions:Subacute cough 2 Sprays by Nasal [...] report completed 07/05/2022 Informed consent signed 07/05/[id number] 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 11/10/2020 02/22/2021 Chondromalacia of right patella 08/10/2020 02/22/2021 Overview (08/10/2020): Added automatically from request for surgery [id number] Swelling of right knee joint 08/10/2020 02/22/2021 Overview (08/10/2020): Added automatically from request for surgery [id number] Patella, chondromalacia, right 08/09/2020 02/22/2021 Effusion of right knee 08/09/202002/22 Maltracking of right patella 08/09/2020 03/28/2022 Class 3 severe obesity witho ut serious comorbidity in adult 04/27/2020 03/28/2022 Chest pain 12/01/2019 06/04/2021 Psoriasis 09/24/2018 03/28/2022 Chronic abdominal pain 12/04/201703/28 History of [place] (myocardial infarction) 12/01/2019 Nausea and vomiting 07/04/19 23 Encounters Date Type Department Care Team Description 08/29/2024 7:35 PM EDT - 08/29/2024 9:29 PM EDT Emergency [facility] [address] [place] [address] Roc Darden MD Fall, initial encounter (Primary [...] RETINACULAR LENGTHENING; Surgeon: Isaias Dumont MD; Location: [facility]; Service: Orthopedics ULNAR TUNNEL RELEASE 08/29/2021 Arm/Elbow/Right Right Cubital Tunnel Release; Surgeon: Ozzy Concepcion MD; Location: [facility]; Service: Orthopedics CARPAL TUNNEL RELEASE 09/19/2021 Hand/Wrist/Left Left Cubital Tunnel Release and left carpal tunnel release; Surgeon: Ozzy Concepcion MD; Location: [facility]; Service: Orthopedics THYROIDECTOMY 07/12/2022 Right Right Jason [...] g 4-8 Asthma Cardiac dysrhythmia tachycardia Meningioma ([facility]) 2023 Gastroparesis Esophageal dysphagia Family History [...] Never 08/15/2022 How often do you attend [facility] or [facility]? Never 08/15/2022 Do you belong to any clubs o r organizations such as scientology groups, unions, fraternal or athletic groups, or [...] Date Recorded PHQ-2 Total Score 2 08/17/2022 [facility] - Occupational Stress Questionnaire Answer [...] place to sleep or slept in a [place] health care facility (including now)? No 08/15/2022 Sexually Active Control Partners Comments Yes Male Comments No Sex and Gender Information Value Date Recorded Sex Assigned at Not on file Legal Sex Female 9:03 AM EST Gender Identity Not on file Sexual Orientation Not on file Occupation Industry Job Start Date Job End Date [employer] Not on file Not on file Not [...] Stay Tobacco Free Lifestyle No [facility] Devices Implanted Type Area Dialysis Tech Device Identifier Shelf Expiration Date Model / Serial / Lot Loop Recorder-12/02 Implanted:11/17 (Quantity not on file) Left: Chest Button Sut 4mm Endbttn 20mm Lf F/Acl/Pcl Recon - [id number] Implanted:Qty: 1 on 08/04/2023 by Cesar Ellis MD at [facility] Left: Knee [employer]:ENDO 10/03/2027 [id number] / / [id number] Procedures Procedure Name Priority Date/Time Associated Diagnosis [...] EST Impressions 03/31/2023 3:16 PM EST Negative ([id number]) ~ RECOMMENDATION: Routine screening mammogram in 1 [...] the next mammogram, in accordance with the [employer] and the Society of Breast Imaging recommendations. Narrative 03/31/2023 3:16 PM EST Procedure:MM MAMMO DIGITAL FAITH SCREEN BILAT ~ Reason for exam: screening, asymptomatic. Z12.31-Encounter for screening mammogram for malignant neoplasm of [id number]-CM ~ MM MAMMO DIGITAL FAITH SCREEN BILAT [...] for screening mammogram for malignant neoplasm of [id number] ~ MM MAMMO DIGITAL FAITH SCREEN BILAT Bilateral CC and MLO view(s) were taken. Technologist: Nico Delgadillo, RT(R)(M) The breast tissue is heterogeneously dense. This may lower thesensitivity of mammography. Prior study comparison: Compared with prior studies the most recentbeing 02/18/22, 01/08/21 No mammographic evidence of malignancy. ~ IMPRESSION: Negative ([id number]-1) ~ RECOMMENDATION: Routine screening mammogram in 1 [...] the next mammogram, in accordance with the [employer] and the Society of [...] cancer Staff Staff Role Latasha Bauer RN Rodent Exterminator Eric Salazar MD Anesthesiologist Fidencio Taylor MD [...] of bowel preparation was evaluated using the [place] Bowel Preparation Scale with scores of: right [...] Recently Relevant to Health Maintenance Insurance [facility] [id number] [id number] Care Teams Household Personal Assistant Relationship Specialty Start Date End Date Mandeep Beckham DO [address] [place] [address] PCP - General Family Medicine 01/28/23
--- OUTSIDE RECORDS SUMMARY | 2024-10-11 10:40 | XMS_ITS | Encounter Summary ---
Author Organization [employer] ([place], [place], [place], [place]) Address [address] [place] [address] Care Team Providers Care Car Wrecker Name Role Phone Marlo Leonardo Primary Care Provider [phone] Gurjit Mena MD Primary Care Provider [phone] Fausto Nieves MD Unavailable [phone] Reason for Referral * Consultation (Routine) - Closed Specialty Diagnoses / Procedures Referred By William mata Referred To Contact Neurology Diagnoses Syncope and collapse Colette Gallardo [address] [place] [address] Phone: tel: Krupa Ward MD [address] [facility] [address] [place] [address] Phone: tel: fax: Referral ID Status Reason Start Date Expiration Date V isits Requested Visits Authorized [id number] Closed Specialty Services Required 12/19/2023 12/18/2024 1 1 Encounter Details Date Type Department Care Team (Late st Contact Info) Description 12/19/2023 Outside Orders [facility] Neurology [address] [facility] [address] [place] [address] Colette Gallardo [place] [address] Syncope and collapse (Primary Dx) Social History [...] Date Darrian rded Speak language other than Irish at home Not on file 03/01/2023 Want [...] [facility] - [address] [address] Fausto Nieves MD [address] [place] [id number] Scheduled Referrals Name Type Priority Associated Diagnoses Order Schedule Ambulatory referral to Neurology Outpatient Referral Routine Syncope and collapse Ordered: 12/19/2023 documented as of this encounter Visit Diagnoses Diagnosis Syncope and collapse- Primary documented in this encounter Care Teams Car Wrecker Relationship Specialty Start Date End Date endyMarlo mireles [address] [place] [address] [place] [address] PCP - General 12/20/22 06/16/24 Gurjit Mena MD [address] [place] [address] [place] [address] PCP - General Family Medicine 06/17/24 Fausto Nieves MD [address] [place] [address] Orthopedic Surgery 06/30/24 documented as of this encounter
--- OUTSIDE RECORDS SUMMARY | 2024-10-11 10:40 | XMS_ITS | Clinical Summary ---
Author Organization [facility] Address [address] [place] [address] Care Team Providers Care Assembly Member Name Role Phone Ha Harrison MD Unavailable [...] therelease of HIV test results or diagnoses. [id number] Health Allergies Active Allergy Reactions Criticality [...] Ran Ayala is being referred by Dr. Ozyz Bowser to see Dr. Ha Harrison to [...] hospital located near her daughter's home in [facility] ([facility] This nurse called them at [phone] Brain done on 04/08/2023is being pushed through PACS. Patient then visited [facility] and had an MRI on 05/14. Patient also had a MRI at [facility] today. Requested this scan to be pushed through PACS., and report emailed to Dr. Harrison. Cristina Andrew has information on these 2 scans in [employer],and will merge these scans to MR#. Patient [...] Insurance [employer] Care Teams Assembly Member Relationship Specialty Start Date End Date Unknown, Attending Provider PCP - General 12/19/23 Ha Harrison MD [address] [place] [address] [phone] Consulting Physician Radiation Oncology 06/18/23 Simi Chung, RN Registered Nurse 06/18/23 Pcp, No No Address 12/15/23
--- OUTSIDE RECORDS SUMMARY | 2024-10-11 10:40 | XMS_ITS | Encounter Summary ---
Author Organization [employer] ([place], [place], [place], [place]) Address [address] [place] [address] Care Team Providers Care Reed Or Wind Instrument Repairer Name Role Phone Marlo Leonardo Primary Care Provider [phone] Gurjit Mena MD Primary Care Provider [phone] Fausto Nieves MD Unavailable [phone] Reason for Referral * Consultation (Routine) - Closed Specialty Diagnoses / Procedures Referred By William mata Referred To Contact Physical Therapy Diagnoses Other tear of medial meniscus of left knee as current injury, subsequent encounter Cesar Ellis MD [address] [id number] Phone: tel: fax: Referral ID Status Reason Start Date Expiration Date V isits Requested Visits Authorized [id number] Closed Specialty Services Required 08/19/2023 02/17/2024 20 20 Encounter Details Date Type Department Care Team (Late st Contact Info) Description 08/19/2023 Outside Orders [facility] OP Physical Therapy [address] [place] [id number] Cesar Ellis MD [address] [place] [address] Other tear of medial meniscus of left [...] Do you speak a language other than Lithuanian at ho ct? No 06/21/2024 Do you want help with [...] Description 11/23/2024 10:00 AM EDT Office Visit [facility] Orthopedics - [address] [address] Fausto Nieves MD [address] [place] [address] Scheduled Referrals Name Type Priority Associated [...] Primary documented in this encounter Care Teams Reed Or Wind Instrument Repairer Relationship Specialty Start Date End Date Marlo Leonardo [address] [place] [address] [place] [address] PCP - General 12/20/22 06/16/24 Gurjit Mena MD [address] [place] [facility] [address] [address] PCP - General Family Medicine 06/17/24 Fausto Nieves MD [address] [place] [address] Orthopedic Surgery 06/30/24 documented as of this encounter
== END 2024-10-11 23:59 | disposition home or self-care (01) ==
LOC: RT 10:02
PROVIDERS: PCP Family Medicine; Visit Provider Student in an Organized Health Care Education/Training Program
DX: R22.42 Localized swelling, mass and lump, left lower limb (principal)
CPT/HCPCS: 93971

== ENCOUNTER 2024-11-03 10:54 | Outpatient (RCR) | payer MEDICAID, SELFPAY ==
--- NOTE | 2024-11-03 15:50 | HMH.OPLYMPH ---
Rehab Lymphedema Evaluation Rehab Lymphedema Evaluation Start: 11/03/24 11:08 Freq: Status: Active Protocol: Document 11/03/24 12:58 PHORFLORECITA (Rec: 11/03/24 15:50 PHORNE [id number]) E-signed By Shun Clark, PT Subjective/History History History This is the initial PT Lymphedema eval for Ran Ayala, 49 yowf who presents with c/o L LE increased lymphedema x ~ 4 mos S/P L TKA. 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 She reports increased pain with her edema. Her swelling does decrease at night with propping of her extremities, but returns with any prolonged dependent positioning. She has PMH of thyroid cancer with partial thyroidectomy, PTSD, anxiety, depression, meningioma, FARHEEN. Subjective Subjective Veronika currently is 0/10, at worst pain in the L LE is 10/ 10 with increased edema. No erythema noted at this time , but mild skin dryness is present. 1+ pitting edema and 1/4 TTP to L lower leg. LLIS score: 43 Lymphedema Eval Classification of Lymphedema Secondary Lymphedema Yes: CVI and L TKA Stemmer's sign Stemmer's Sign no Stage of Lymphedema Lymphedema stages Stage I (Pitting edema, reduces w/ elevation, no fibrosis) Skin Changes Dry Skin Yes Other Changes Yes Pain Scale Pain Scale (0-10) 10 Affected Extremities Areas Affected by Left Lower Extremity Lymphedema/Edema Lower Extremity Measurements Left MTP Measurement (cm) 23.2 Heel Measurement (cm 31.2 ) 10 cm Proximal to 29.1 Lateral Malleoli Measurement (cm) 20 cm Proximal to 42.0 Lateral Malleoli Measurement (cm) 30 cm Proximal to 44.6 Lateral Malleoli Measurement (cm) 40 cm Proximal to 0 Lateral Malleoli Measurement (cm) 50 cm Proximal to 0 Lateral Malleoli Measurement (cm) 60 cm Proximal to 0 Lateral Malleoli Measurement (cm) Lower Extremity 170.1 Measurement Total ( cm) Manual Lymphatic Drainage Treatment Area MLD Treatment Area Left Lower Extremity Wound Problems/Impairments Impairments Problems/ Palpation Tenderness,Impaired Walking,Impaired Standing Impairmments ,Impaired Household Care,Impaired Recreational Activities,Impaired Work Activities,Increased Edema, Lymphedema Present,Subjective C/O Pain,Impaired Self Care/Self Management Prognosis Rehab Potential Good Comment Skilled therapy is indicated to aid reduction of overall lymphedema in order to assist pt return to improved QOL. Clinical Impression Consistent with Yes Diagnosis Consistent with also Additional details: I89.0 Lymphedema Lymphedema Patient Goals Lymphedema Patient Goals Lymphedema Short In 2 wks pt will: Term Patient Goals 1) Decrease pain in L LE to 5/10 at worst 2) Reduce circumferential measurements to L LE by 3 cm Lymphedema Retail Store Manager in 4 wks pt will: Patient Goals 1) Reduce pitting edema to 0 in L LE 2) Reduce circumferential measurements to L LE by 6 cm 3) Be independent with donning/doffing of compression garments 4) be independent with Lymphedema management via HEP Outpatient Therapy Plan of Care Treatment Plan May Include Therapeutic Exercise Yes Including Home Exercise Program Manual Therapy Yes Techniques Neuromuscular Re- Yes education Therapeutic Yes Activities to Return to Previous Functional/Work Level ADL/Self Care Yes Education Orthotics/Bracing/ Yes Splinting Manual Lymphatic Yes Drainage Eval/Re-Eval Yes Frequency Times per week 2 Duration Number of Weeks 4 Addendums This patient is a No candidate for social or vocational rehab ? Patient/Guardian Yes verbally acknowledges understanding of treatment program and consents to further treatment? Patient/Guardian Yes verbally acknowledges understanding of diagnosis, prognosis and goals for treatment? Eval Complexity PT Charges 42481 - High Complexity PHYSICIAN CERTIFICATION: I certify the specified therapy services for Ran Ayala are required, authorized, and reviewed every 30 days.
== END 2024-11-03 23:59 | disposition home or self-care (01) ==
LOC: PT 10:54
PROVIDERS: Visit Provider Physician Assistant
DX: R60.0 Localized edema (principal)
CPT/HCPCS: 97163

== ENCOUNTER 2024-11-17 21:16 | Emergency (ER) | payer MEDICAID, SELFPAY ==
[2024-11-17 21:35] VITALS: BP 127/77; PULSE 54; RESP 16; TEMP 36.6; O2SAT 97; BMI 39.1
--- OUTSIDE RECORDS SUMMARY | 2024-11-17 21:48 | XMS_ITS | Clinical Summary ---
Author Organization [employer] [facility] Address [address] [place] [address] Phone Care Team Providers Care Rayon Coner Name Role Phone Unavailable Unavailable Conditions or Problems No information available. Medications No information available. Medications Administered No information available. Allergies, Adverse Reactions, Alerts No information available. Results No information available. Plan of Care No information available. Procedures No information available. Vital Signs No information available. Immunizations No information available. Advance Directives No information available.
--- OUTSIDE RECORDS SUMMARY | 2024-11-17 21:49 | XMS_ITS | Clinical Summary ---
Author Organization [facility] Address [address] [place] [address] Care Team Providers Care Dry Cleaner Apprentice Name Role Phone Ha Harrison MD Unavailable [...] therelease of HIV test results or diagnoses. [id number] Health Allergies Active Allergy Reactions Criticality Noted [...] hospital located near her daughter's home in [facility] ([facility]). This nurse called them at [phone] Brain done on 04/08/2023is being pushed through PACS. Patient then visited [facility] and had an MRI on 05/14. Patient also had a MRI at [facility] today. Requested this scan to be pushed through PACS., and report emailed to Dr. Harrison. Cristina Andrew has information on these 2 scans in [email or web address],and will merge these scans to MR#. Patient [...] Insurance [employer] Care Teams Dry Cleaner Apprentice Relationship Specialty Start Date End Date Unknown, Attending Provider PCP - General 12/19/23 Ha Harrison MD [address] [place] [address] [phone] Consulting Physician Radiation Oncology 06/18/23 Simi Chung, RN Registered Nurse 06/18/23 Pcp, No No Address 12/15/23
--- NOTE | 2024-11-17 23:04 | PC.NURSE ---
name called at this time for lab work to be drawn, not found in lobby
[2024-11-17 23:35] VITALS: BP 00/00; PULSE 0; RESP 0; TEMP -17.7; TEMP 0; O2SAT 0
== END 2024-11-17 23:37 | disposition left against medical advice (07) ==
PROVIDERS: Emergency Provider Emergency Medicine; PCP Family Medicine
DX: Z53.21 Procedure and treatment not carried out due to patient leaving prior to being seen by health care provider (principal)
CPT/HCPCS: 99211; 99283

== ENCOUNTER 2024-11-18 18:52 | Emergency (ER) | payer MEDICAID, SELFPAY ==
--- OUTSIDE RECORDS SUMMARY | 2024-11-18 19:15 | XMS_ITS | Clinical Summary ---
Author Organization [employer] [facility] Address [address] [place] [address] Phone Care Team Providers Care Blueprinting Machine Operator Name Role Phone Unavailable Unavailable Conditions or Problems No information available. Medications No information available. Medications Administered No information available. Allergies, Adverse Reactions, Alerts No information available. Results No information available. Plan of Care No information available. Procedures No information available. Vital Signs No information available. Immunizations No information available. Advance Directives No information available.
[2024-11-18 19:16] VITALS: BP 116/87; PULSE 72; RESP 16; TEMP 36.1; O2SAT 98; BMI 39.1
--- OUTSIDE RECORDS SUMMARY | 2024-11-18 19:16 | XMS_ITS | Clinical Summary ---
Author Organization [facility] Address [address] [place] [address] Care Team Providers Care Winch Derrick Operator Name Role Phone Ha Harrison MD Unavailable [...] therelease of HIV test results or diagnoses. [id number] Allergies Active Allergy Reactions Criticality Noted [...] hospital located near her daughter's home in [facility] ([facility]). This nurse called them at [phone] Brain done on 04/08/2023is being pushed through PACS. Patient then visited [facility] and had an MRI on 05/14. Patient also had a MRI at [facility] today. Requested this scan to be pushed through PACS., and report emailed to Dr. Harrison. Cristina Andrew has information on these 2 scans in [employer],and will merge these scans to MR#. Patient [...] Insurance [employer] Care Teams Winch Derrick Operator Relationship Specialty Start Date End Date Unknown, Attending Provider PCP - General 12/19/23 Ha Harrison MD [address] [place] [address] [phone] Consulting Physician Radiation Oncology 06/18/23 Simi Chung, RN Registered Nurse 06/18/23 Pcp, No No Address 12/15/23
--- NOTE | 2024-11-18 19:21 | ED_ITS ---
Discharge Plan Disposition Patient Disposition: Left Against Medical Advice Condition: Good Prescriptions Prescriptions: No Action escitalopram oxalate 20 mg tablet 20 mg PO DAILY Patient Comments: TAKE 1 TABLET BY MOUTH ONCE DAILY buspirone 10 mg tablet 10 mg PO NEEDED PRN (Reason: Anxiety) Patient Comments: TAKE 1 TABLET BY MOUTH THREE TIMES DAILY hydrocortisone [Proctosol HC] 2.5 % cream with perineal applicator 1 applic AZ QD-BID PRN (Reason: hemorrhoids) Qty: 30 0RF albuterol sulfate [Ventolin HFA] 90 mcg/actuation HFA aerosol inhaler 90 mcg inhalation NEEDED PRN (Reason: SOA) Patient Comments: INHALE 2 PUFFS BY MOUTH EVERY 4 TO 6 HOURS NEEDED FOR SHORTNESS OF BREATH FOR WHEEZING lisinopril 20 mg tablet 20 mg PO DAILY Proctofoam HC 1-1 % foam 1 applic AZ QID PRN (Reason: hemorrhoids) Qty: 10 3RF trazodone 100 mg tablet 100 mg PO HS Patient Comments: TAKE 2 TABLETS BY MOUTH NIGHTLY NEEDED FOR SLEEP pantoprazole [Protonix] 40 mg tablet,delayed release (DR/EC) 40 mg PO DAILY Qty: 30 5RF estradiol 1 mg tablet See Rx Instructions .ROUTE .COMPLEX Qty: 30 12RF Dose Instruction: Take 1 tablet by mouth once daily Rx Instructions: Take 1 tablet by mouth once daily nitroglycerin 0.4 mg tablet, sublingual 0.4 mg sublingual Q5M PRN (Reason: chest pain) Qty: 14 0RF Rx Instructions: do not exceed 3 doses per episode Referrals Follow up/Referrals: Gurjit Mena MD [Primary Care Provider, Internal Medicine] - See instructions Activity Restrictions/Add. Instructions Additional Instructions/Restrictions: Return to the emergency department or follow-up with their primary care provider if you have continued or progression of your symptoms. Clinical Impressions Clinical Impression: Headache Print Language Print Language: [place]ese Discharge ED Provider: Ольга Neville Adult HPI General Chief complaint: Headache Stated complaint: pain on right side of head, nausea Time Seen by Provider: 11/18/24 19:21 Mode of Arrival: Ambulatory Source of Information: Patient Description of Symptoms (Recalled from ER Triage Doc. by RN): Pt c/o right side head p/ain that comes and goes and ongoing for approx 1 day. Pt states the pain is sharp and rates pain 8/10. Pt denies light and sound sensitivity. History of Present Illness HPI narrative: Patient is a 49-year-old female who states that she has a history of meningioma who presented to the emergency department with right sided head pain. Patient states that her symptoms started today and she is having sharp shooting pains that goes behind her right ear. Patient states that she does not have a headache, patient is not having any vision changes. Patient states that she has had migraines in the past. States that her symptoms were sharp and intermittent and would only last for a few seconds. Patient denies any chest pain but does report some shortness of breath. Patient denies any abdominal pain nausea vomiting or diarrhea. Patient denies any recent trauma or falls. Related Data Home Medications ?Medication ?Instructions ?Recorded ?Confirmed trazodone 100 mg tablet 100 mg PO HS 09/04/23 buspirone 10 mg tablet 10 mg PO NEEDED PRN Anxie ty 05/25/24 11/15/24 escitalopram oxalate 20 mg tablet 20 mg PO DAILY 05/2511/15/24 albuterol sulfate 90 mcg/actuation 90 mcg inhalation A S NEEDED PRN SOA 06/10/24 11/15/24 aerosol inhaler (Ventolin HFA) lisinopril 20 mg tablet 20 mg PO DAILY 10/14/2410/19 Previous Rx's ?Medication ?Instructions ?Recorded hydrocortisone 2.5 % topical cream 1 applic AZ QD-BID PRN hemorrhoids 05/25/24 with perineal applicator #30 grams (Proctosol HC) estradiol 1 mg tablet See Rx Instructions .Route 0 08/03/24 .COMPLEX #30 tabs nitroglycerin 0.4 mg sublingual 0.4 mg sublingual Q5M PRN chest 10/10/24 tablet pain #14 tabs pantoprazole 40 mg tablet,delayed 40 mg PO DAILY #30 t abs 10/11/24 release (Protonix) hydrocortisone 1 %-pramoxine 1 % 1 applic AZ QID PRN h emorrhoids 11/15/24 rectal foam (Proctofoam HC) #10 grams Allergies Allergy/AdvReac Type Severity Reaction Status Date / Time adhesive tape Allergy Mild Rash Verified 11/15/24 11:16 [facility] Disclaimer: The information contained in this section may have been updated after the patient was seen, as this information can be updated by other users. Medical History Left knee DJD Abnormal cardiovascular stress test Atypical angina Preop testing Sleep apnea Thyroid Nodule Hearing loss in right ear Loose left total knee arthroplasty Chronic sinusitis H/O Eustachian tube dysfunction Hearing difficulty of right ear Dyspnea on exertion FARHEEN (obstructive sleep apnea) Meningioma Seizures Ovarian cyst Breast cancer Hx of thyroid cancer Implantable loop recorder present Tachycardia History of hypertension PTSD (post-traumatic stress disorder) Anxiety Depression Surgical History History of partial thyroidectomy History of loop recorder H/O: knee surgery History of carpal tunnel repair History of cholecystectomy History of abdominal hysterectomy total, [place] Family History Other Anemia Asthma Cancer Coronary artery disease Diabetes FHx: mental illness Heart attack Hyperlipidemia Hypertension Thyroid disorder Social History Smoking Status: Former smoker tobacco type: cigarettes packs per day: 0 alcohol intake: current alcohol intake frequency: holidays/special occasions only counseling provided: none substance use type: denies use current occupational status: unemployed Travel in the last 8 weeks?: None household members: none housing: house marital status: single number of children: 3 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 current occupational exposures/hazards: No caffeine: No Have you lived/traveled outside US in past 30 days?: No Contact w/someone who lives/traveled outside US past 30 days?: No Exposure to someone with infectious disease in past 14 days?: No Do you have a fever (greater than 100.4 F or 38 C)?: No Have you tested positive for COVID-19?: No Exposed to someone with COVID-19 in past 14 days?: No Do you have a sore throat?: No Do you have a cough?: No Do you have any weakness?: No Do you have any diarrhea?: No Are you experiencing any unusual bleeding?: No Do you have any muscle aches/pain?: No Do you have any abdominal pain?: No Are you experiencing loss of taste or smell?: No Other Medical History Have you received the Flu Vaccine for this season: No Have you received the Pneumonia Vaccine: No ROS Obtained: Yes All systems reviewed & no additional complaints except as documented and Yes Systems reviewed as appropriate & no additional complaints except as documented Physical Exam General General appearance: alert and in no apparent distress Head Head exam: atraumatic, normocephalic and normal inspection Eye Eye exam: Present normal appearance, PERRL and EOMI; Absent scleral icterus ENT ENT exam: Present normal exam and normal external ear exam Neck Neck exam: Present normal inspection and full ROM Chest Chest inspection: Present normal inspection and symmetric chest wall rise Respiratory Respiratory exam: Present normal lung sounds bilaterally; Absent respiratory distress or wheezes Cardiovascular Cardiovascular exam: Present regular rate, normal rhythm and normal heart sounds Abdominal Exam Abdominal exam: Present soft and distention; Absent tenderness, guarding or rebound Extremities Exam Extremities exam: Present normal inspection and full ROM Back Exam Back exam: Present normal inspection and full ROM Neurological Exam Neurological exam: Present alert, oriented X3, CN II-XII intact, normal gait, reflexes normal and other (no temporal tenderness); Absent motor sensory deficit Psychiatric Psychiatric exam: Present normal affect and normal mood Skin Skin exam: Present warm and dry Medical Decision Making Medical Records Medical records reviewed: Yes I reviewed the patient's medical records. Screening: Per USPSTF and CDC recommendations, given the prevalence of disease in our region, it is our hospital?s policy to screen for HIV and viral Hepatitis for all patients aged 18 and over and those with ongoing risk factors. [place] Inquiry Pt receiving controlled substance: No Vital Signs: 11/18/24 19:16 11/18/24 19:45 11/18/24 20:00 Temperature 97 F L Temperature Source Oral Pulse Rate 59 L 54 L Pulse Rate [Left] 72 Respiratory Rate 16 Blood Pressure 115/72 117/71 Blood Pressure [Right Arm] 116/87 Blood Pressure Mean [Right Arm] 96 Blood Pressure Source [Right Arm] Automatic Cuff Blood Pressure Position [Right Arm] Sitting 02 Sat by Pulse Oximetry 98 97 95 Oxygen Delivery Method Room Air 11/18/24 20:45 Temperature 98.6 F Temperature Source Pulse Rate 56 L Pulse Rate [Left] Respiratory Rate 16 Blood Pressure 112/74 Blood Pressure [Right Arm] Blood Pressure Mean [Right Arm] Blood Pressure Source [Right Arm] Blood Pressure Position [Right Arm] 02 Sat by Pulse Oximetry Oxygen Delivery Method Room Air Lab Data Lab results reviewed: Yes I reviewed the patient's lab results. Lab Results 11/18/24 19:30: WBC 8.1, RBC 4.42, Hgb 13.7, Hct 40.4, MCV 91.4, MCH 31.0, MCHC 33.9, RDW 12.3, Plt Count 288, MPV 10.5 H, Neut % (Auto) 58.7, Lymph % (Auto) 32.7, [place] % (Auto) 5.8, Eos % (Auto) 2.2, Baso % (Auto) 0.4, Neut # (Auto) 4.7, Lymph # (Auto) 2.6, [place] # (Auto) 0.5, Eos # (Auto) 0.2, Baso # (Auto) 0.0, D- Dimer 0.93 H, Sodium 137, Potassium 4.0, Chloride 103, Carbon Dioxide 25, Anion Gap 13.0, BUN 9, Creatinine 0.90, Estimated Creat Clear 121, Estimated GFR 67, Est GFR ( Amer) 81, Glucose 99, Calcium 9.3, Total Bilirubin 0.6, AST 27, ALT 16, Alkaline Phosphatase 91, NT-Pro-B Natriuret Pep 63.9, Total Protein 7.0, Albumin 4.2, Globulin 2.8, Albumin/Globulin Ratio 1.5, Serum HCG, Qual Negative 11/18/24 19:30 11/18/24 19:30 Orders (Tests/Meds): ED MEDICATIONS Discontinued Medications Generic Name Dose Route Start Last Admin Trade Name Thaiq PRN Reason Stop Dose Admin Acetaminophen 1,000 mg 11/18/24 19:41 11/18/24 19:50 Acetaminophen 500mg Tab PO 11/18/24 19:42 1,000 mg ONCE ONE Administration Ketorolac Tromethamine 30 mg 11/18/24 19:41 11/18/24 19:50 Ketorolac 30mg/Ml Vial IV 11/18/24 19:42 30 mg ONCE ONE Administration Prochlorperazine Edisylate 5 mg 11/18/24 19:41 11/18/24 19:50 Prochlorperazine 10mg/2ml Vial IV 11/18/24 19:42 5 mg ONCE ONE Administration ORDERS Category Date Time Status CT head/brain wo con Stat Cat Scan 11/18/24 19:37 Completed CXR 2 view (NOT portable) [XR chest 2V] Stat Exams 11/18/24 19:37 Completed BNP [NT Pro Brain Natriuretic Pep.] Stat Lab 11/18/24 19:30 Completed CBC w/Auto Diff [Complete Blood Count Auto Diff] Stat Lab 11/18/24 19:30 Completed CMP [Comprehensive Metabolic Panel] Stat Lab 11/18/24 19:30 Completed D-Dimer Stat Lab 11/18/24 19:30 Completed HCG Qualitative, Serum Stat Lab 11/18/24 19:30 Completed Medical Decision Narrative: Patient is a 49-year-old female with a past medical history of reported meningioma who presented to the emergency department with right sided shooting head pain. On arrival, patient was hemodynamically stable with unremarkable vital signs. Differential includes but not limited to: Trigeminal neuralgia, intracranial process, intracranial ischemia, migraine, tension headache, amongst others. CMP was unremarkable. CT scan of the head as well as labs were obtained patient was given a migraine cocktail. Chest x-ray was reviewed and interpreted by myself and showed no acute focal consolidation, pneumothorax, pleural effusion or other acute cardiopulmonary process. Patient's labs were reviewed and interpreted by myself: CBC showed no leukocytosis, hemoglobin was stable. D-dimer was mildly elevated at 0.93 but negative by years criteria for a pulmonary embolism. CT scan of the head was reviewed and interpreted by myself and showed no acute intracranial process. However, after migraine cocktail, patient stated that her symptoms had resolved and patient wished to discharge prior to the read of the CT scan. Patient ultimately signed out AMA. Return precautions were discussed and patient was otherwise discharged home in stable condition. Critical Care Critical Care Time Critical Care Time: No
--- NOTE | 2024-11-18 19:37 | XR_ITS ---
PROCEDURE INFORMATION: Exam: XR Chest Exam date and time: 11/18/2024 7:59 PM Age: 49 years old Clinical indication: Shortness of breath TECHNIQUE: Imaging protocol: Radiologic exam of the chest. Views: 2 views. COMPARISON: CT ANGIO CHEST PE PROTOCOL 10/10/2024 11:31 AM FINDINGS: Tubes, catheters and devices: Electronic monitoring device overlies the cardiac silhouette. Lungs: Unremarkable. No consolidation. Pleural spaces: Unremarkable. No pleural effusion. No pneumothorax. Heart/Mediastinum: Unremarkable. No cardiomegaly. Bones/joints: Unremarkable. IMPRESSION: No acute findings.
--- NOTE | 2024-11-18 19:37 | CT_ITS ---
PROCEDURE INFORMATION: Exam: CT Head Without Contrast Exam date and time: 11/18/2024 8:16 PM Age: 49 years old Clinical indication: Other: Headache, sharp right sided pain TECHNIQUE: Imaging protocol: Computed tomography of the head without contrast. Radiation optimization: All CT scans at this facility use at least one of these dose optimization techniques: automated exposure control; mA and/or kV adjustment per patient size (includes targeted exams where dose is matched to clinical indication); or iterative reconstruction. COMPARISON: CT HEAD/BRAIN WO CON 09/28/2023 10:11 PM FINDINGS: Brain: Normal. No hemorrhage. Unremarkable white matter. No mass effect. Cerebral ventricles: No ventriculomegaly. Paranasal sinuses: Visualized sinuses are unremarkable. No fluid levels. Mastoid air cells: Visualized mastoid air cells are well aerated. Bones: Unremarkable. No acute fracture. Soft tissues: Unremarkable. IMPRESSION: No acute intracranial abnormality.
[2024-11-18 19:42] LABS: Hematocrit 40.4 % (37.0-47.0); Hemoglobin 13.7 g/dL (12.2-16.2); Immature Granulocytes % 0.2 %; Mean Corpuscular HGB Conc 33.9 g/dL (31.8-35.4); Mean Corpuscular Hemoglobin 31.0 pg (27.0-31.2); Mean Corpuscular Volume 91.4 fl (81-99); Nucleated Red Blood Cells % 0 %; Platelet Count 288 K/mm3 (142-424); Red Blood Count 4.42 M/mm3 (4.20-5.40); Red Cell Distribution Width-SD 40.8 fL; White Blood Count 8.1 K/mm3 (4.8-10.8)
--- NOTE | 2024-11-18 19:43 | ECG_ITS ---
APPROVED REPORT Exam: Resting ECG HR:60 bpm ECG Measurements Heart Rate 60 AXES WA 195 P 43 QRSd 104 QRS -3 QT 436 T 14 QTc 437 Conclusion SINUS RHYTHM NORMAL ECG UNCONFIRMED REPORT Electronically signed by : ANTONIA NOVAK, 11/18/2024 23:04:47
[2024-11-18 19:45] VITALS: BP 115/72; PULSE 59; O2SAT 97
[2024-11-18] MEDS: ACETAMINOPHEN 500MG TAB 1000 MG PO (19:50)
[2024-11-18] MEDS: KETOROLAC 30MG/ML VIAL 30 MG IV (19:50)
[2024-11-18] MEDS: PROCHLORPERAZINE 10MG/2ML VIAL 5 MG IV (19:50)
[2024-11-18 19:51] LABS: Alanine Aminotransferase 16 U/L (12-78); Albumin Level 4.2 g/dl (3.5-5.0); Albumin/Globulin Ratio 1.5 (1.1-1.8); Alkaline Phosphatase 91 U/L (38-126); Anion Gap 13.0 mEq/L (5-15); Aspartate Amino Transferase 27 U/L (14-36); Bilirubin,Total 0.6 mg/dl (0.2-1.3); Blood Urea Nitrogen 9 mg/dl (7-17); Calcium 9.3 mg/dl (8.4-10.2); Carbon Dioxide 25 mmol/L (22.0-30.0); Chloride 103 mmol/L (98-107); Creatinine Clearance Estimated 121 mL/min (50-200); Creatinine,Serum 0.90 mg/dl (0.52-1.04); Estimated Glomerular Filt Rate 67 ml/min (>60); GFR (African American) 81 ML/MIN (>60); Globulin 2.8 g/dL (1.3-3.2); Glucose 99 mg/dl (74-100); Potassium 4.0 mmoL/L (3.5-5.1); Sodium 137 mmol/L (136-145); Total Protein,Serum 7.0 g/dl (6.3-8.2)
[2024-11-18 19:56] LABS: D-Dimer 0.93 ug/mL (0.0-0.5)
[2024-11-18 19:59] LABS: NT Pro Brain Natriuretic Pep. 63.9 pg/mL (0-125)
[2024-11-18 20:00] VITALS: BP 117/71; PULSE 54; O2SAT 95
[2024-11-18 20:02] LABS: HCG Qualitative, Serum Negative (Negative)
--- NOTE | 2024-11-18 20:28 | PC.NURSE ---
pt wishes to leave stating I think I just wanna go home, I'm feeling better Dr Neville aware, to speak to patient at this time.
[2024-11-18 20:45] VITALS: BP 112/74; PULSE 56; RESP 16; TEMP 37; O2SAT 96
== END 2024-11-18 20:45 | disposition left against medical advice (07) ==
PROVIDERS: Emergency Provider Student in an Organized Health Care Education/Training Program; PCP Family Medicine
DX: R51.9 Headache, unspecified (principal); R11.0 Nausea; I10 Essential (primary) hypertension; Z87.891 Personal history of nicotine dependence
CPT/HCPCS: 70450; 71046; 80053; 83880; 84703; 85025; 85378; 93005; 96374; 96375; 99284; 99285; J0780; J1885

== ENCOUNTER 2024-12-18 10:49 | Emergency (ER) | payer MEDICAID, SELFPAY ==
[2024-12-18] VITALS (7 sets, daily range): BP systolic 111–138; BP diastolic 76–91; PULSE 50–75; RESP 16–18; TEMP 36.6–36.8; O2SAT 94–100; BMI 38.0
--- OUTSIDE RECORDS SUMMARY | 2024-12-18 11:08 | XMS_ITS | Clinical Summary ---
Author Organization [facility] Address [address] [place] [address] Phone Care Team Providers Care Decorative Greens Cutter Name Role Phone Unavailable Unavailable Conditions or Problems No information available. Medications No information available. Medications Administered No information available. Allergies, Adverse Reactions, Alerts No information available. Results No information available. Plan of Care No information available. Procedures No information available. Vital Signs No information available. Immunizations No information available. Advance Directives No information available.
--- OUTSIDE RECORDS SUMMARY | 2024-12-18 11:09 | XMS_ITS | Encounter Summary ---
Author Organization [facility] Address [facility] [place] [address] Care Team Providers Care Housekeeper Nanny Name Role Phone Ha Harrison MD Unavailable Simi Chung RN Unavailable Unavailable Pcp, No Unavailable Unknown, Attending Provider Primary Care Provide r Unavailable Source Comments This information has been disclosed to you from confidential records protectfrom disclosure by state law. You shall make no further disclosure of thisinformation without the specific, written, and informed release of theindividual to whom it pertains, or as otherwise permitted by law. A generalauthorization for the release of medical or other information is not sufficientfor the purposes of the release of HIV test results or diagnoses. [id number] Health Encounter Details Date Type Department Care Team (Late st Contact Info) Description 12/02/2024 Chart Note [facility] Radiation Oncology at [address] [phone] Jacinto Vasquez, RN I faxed records to Yesica Hunt with [facility] at the Social History Tobacco Use Types Packs/Day Years Used Date Smoking Tobacco: Unknown PHQ-2 Answer Date Recorded PHQ-2 Total Score [...] 06/22 Assistance needed for: Not on file Yearly Questionnaire Answer Date Record ed Do you need any assistance w ith obtaining housing, meals, medication, transportation or medical equipment? No 06/22 Assistance needed for: Not on file 4 Comments No Sex and Gender Information Value Date Recorded Sex Assigned at Not on file Legal Sex Female 11:11 AM EDT Gender Identity Not on file Sexual Orientation Not on file documented as of this encounter Progress Notes * Jacinto Vasquez RN - 12/02/2024 1:17 PM EDT I faxed records to Yesica Hunt with [facility] at the request of the patient. I faxed to [phone] Fax transmittal confomation received. 12-02 @ 0078. documented in this encounter Plan of Treatment Not on file documented as of this encounter Visit Diagnoses Not on filedocumented in this encounter Care Teams Housekeeper Nanny Relationship Specialty Start Date End Date Unknown, Attending Provider PCP - General 12/19/23 Ha Harrison MD [address] [place] [address] Consulting Physician Radiation Oncology 06/18/23 Simi Chung, RN Registered Nurse 06/18/23 Pcp, No No Address 12/15/23 documented as of this encounter
--- OUTSIDE RECORDS SUMMARY | 2024-12-18 11:09 | XMS_ITS | Encounter Summary ---
Author Organization [facility] Address [facility] [place] [address] Care Team Providers Care Bumper Straightener Name Role Phone Ha Harrison MD Unavailable [...] release of HIV test results or diagnoses. [id number] Health Encounter Details Date Type Department Care Team (Late st Contact Info) Description 12/02/2024 Telephone [facility] Radiation Oncology at [address] [phone] Simi Saeed RN Social History Tobacco Use Types Packs/Day Years [...] as of this encounter Plan of Treatment Not on file documented as of this encounter Visit Diagnoses Not on filedocumented in this encounter Care Teams Bumper Straightener Relationship Specialty Start Date End Date Unknown, Attending Provider PCP - General 12/19/23 Ha Harrison MD [address] [place] [address] Consulting Physician Radiation Oncology 06/18/23 Simi Chung, RN Registered Nurse 06/18/23 Pcp, No No Address 12/15/23 documented as of this encounter
--- OUTSIDE RECORDS SUMMARY | 2024-12-18 11:09 | XMS_ITS | Clinical Summary ---
Author Organization [facility] Address [address] [place] [id number] Care Team Providers Care Cylinder Block Hole Reliner Name Role Phone Ha Harrison MD Unavailable [...] therelease of HIV test results or diagnoses. [id number] Health Allergies Active Allergy Reactions [...] by Dr. Ozzy Bowser to see Dr. aH Harrison to discuss radiation therapy for Meningioma. . On 04/12/2023, the patient presented to ED with complaints of seizure-like activity. MRI of the brain with attention to the temporal lobe was ordered in follow up evaluation by neurology . Patient was playing with her granddaughter when she experienced seizure like activity. Patient went to a hospital located near her daughter's home in [facility] This nurse called them at [phone] Brain done on 04/08/2023is being pushed through PACS. Patient then visited [facility] and had an MRI on 05/14. Patient also had a MRI at [facility] today. Requested this scan to be pushed through PACS., and report emailed to Dr. Harrison. Cristina Andrew has information on these 2 scans in IMeograph,and will merge these scans to MR#. Patient stated she has not had any previous radiation or chemotherapy. Problem Noted Date Diagnosed Date Benign neoplasm of cerebral meninges 06/23/2023 Encounters Date Type Department Care Team Description 12/02/2024 Chart Note [facility] Radiation Oncology at [address] [phone] Jacinto Vasquez, BRUNA I faxed records to Yesica Hunt with [facility] at the 12/02/2024 Telephone [facility] Radiation Oncology at [address] [phone] Simi Saeed, BRUNA from Last 3 Months Immunizations Immunization Administration Dates Next Due COVID-19, mRNA, Moderna monovalent, age 12+ 05/10/2020,05/30/2020 Social History Tobacco Use Types Packs/Day Years [...] 1976 Diabetes Screening 1976 Hepatitis C Screening (Pembe Panjurhart) 1976 Alcohol Misuse Screening 1994 HIV Screening 1994 Immunization: Zoster (1 of 2) 10/30/1995 Cervical Cancer Screening/Pa p Smear (MyChart) 2006 Mammogram (Pembe Panjurhart) 2016 Immunization: COVID-19 (3 - Moderna risk [...] to complete this topic Insurance [employer] [facility] Care Teams Cylinder Block Hole Reliner Relationship Specialty Start Date End Date Unknown, Attending Provider PCP - General 12/19/23 Ha Harrison MD [address] [place] [id number] Consulting Physician Radiation Oncology 06/18/23 Simi Chung, RN Registered Nurse 06/18/23 Pcp, No No Address 12/15/23
--- NOTE | 2024-12-18 11:41 | PC.NURSE ---
113- this RN received report from Speedy MCFARLAND and is taking over care for the patient at this time.
--- NOTE | 2024-12-18 11:46 | XR_ITS ---
PROCEDURE INFORMATION: Exam: XR Chest Exam date and time: 12/18/2024 11:56 AM Age: 49 years old Clinical indication: Dyspnea TECHNIQUE: Imaging protocol: Radiologic exam of the chest. Views: 1 view. COMPARISON: CR Chest 11/18/2024 7:59 PM FINDINGS: Limitations: Bra artifact. Tubes, catheters and devices: Cardiac loop recording device. Clips project at the right neck. Lungs: Unremarkable. No consolidation. Pleural spaces: Unremarkable. No pleural effusion. No pneumothorax. Heart/Mediastinum: Unremarkable. No cardiomegaly. Bones/joints: Unremarkable. IMPRESSION: No acute findings.
--- NOTE | 2024-12-18 11:47 | HMH.EDGENADL ---
Discharge Plan Disposition Patient Disposition: Home, Self-Care Prescriptions Prescriptions: New metronidazole 500 mg tablet 500 mg PO BID 7 Days Qty: 14 0RF No Action escitalopram oxalate 20 mg tablet 20 mg PO DAILY Patient Comments: TAKE 1 TABLET BY MOUTH ONCE DAILY buspirone 10 mg tablet 10 mg PO NEEDED PRN (Reason: Anxiety) Patient Comments: TAKE 1 TABLET BY MOUTH THREE TIMES DAILY hydrocortisone [Proctosol HC] 2.5 % cream with perineal applicator 1 applic NV QD-BID PRN (Reason: hemorrhoids) Qty: 30 0RF albuterol sulfate [Ventolin HFA] 90 mcg/actuation HFA aerosol inhaler 90 mcg inhalation NEEDED PRN (Reason: SOA) Patient Comments: INHALE 2 PUFFS BY MOUTH EVERY 4 TO 6 HOURS NEEDED FOR SHORTNESS OF BREATH FOR WHEEZING lisinopril 20 mg tablet 20 mg PO DAILY Proctofoam HC 1-1 % foam 1 applic NV QID PRN (Reason: hemorrhoids) Qty: 10 3RF trazodone 100 mg tablet 100 mg PO HS Patient Comments: TAKE 2 TABLETS BY MOUTH NIGHTLY NEEDED FOR SLEEP pantoprazole [Protonix] 40 mg tablet,delayed release (DR/EC) 40 mg PO DAILY Qty: 30 5RF estradiol 1 mg tablet See Rx Instructions .ROUTE .COMPLEX Qty: 30 12RF Dose Instruction: Take 1 tablet by mouth once daily Rx Instructions: Take 1 tablet by mouth once daily nitroglycerin 0.4 mg tablet, sublingual 0.4 mg sublingual Q5M PRN (Reason: chest pain) Qty: 14 0RF Rx Instructions: do not exceed 3 doses per episode Referrals Follow up/Referrals: Gurjit Mena MD [Primary Care Provider, Internal Medicine] - See instructions Tavon Presley MD [Staff Physician, Cardiology] - See instructions Activity Restrictions/Add. Instructions Additional Instructions/Restrictions: No emergent medical condition identified today as discussed we could not definitively rule out a DVT therefore an outpatient venous duplex ultrasound has been ordered and should be performed early next week. Please follow-up as discussed with the nurse. We incidentally found asymptomatic trichomoniasis and antibiotics have been given to you for that. With regards to your lower extremity edema I do recommend that you follow-up with our chinese instructor to have a more comprehensive evaluation of your heart. A referral to Dr. Presley's clinic has been made. Clinical Impressions Clinical Impression: Bilateral lower extremity edema, Dyspnea, Asymptomatic trichomoniasis Print Language Print Language: Syriac Discharge ED Provider: Tia Casanova General Adult HPI General Chief complaint: PAIN Stated complaint: Left leg pain Time Seen by Provider: 12/18/24 11:43 Mode of Arrival: Ambulatory Source of Information: Patient Description of Symptoms (Recalled from ER Triage Doc. by RN): Patient states she has had pain and swelling in left knee and calf since Friday12/14/24, denies injury, states she had a knee replacement in June 2024. History of Present Illness HPI narrative: Patient is a previously healthy 49-year-old female presenting today with lower extremity edema. States this has been ongoing since Friday both legs have been involved but left greater than right. She has a history of a knee replacement in June of this year. No significant chest pain she does states she has had a little bit worsening of her shortness of breath no history of heart failure kidney dysfunction liver dysfunction etc. Primarily states that the pain is associated with the left knee all the way down to the left lower extremity. No fevers chills redness etc. Related Data Home Medications ?Medication ?Instructions ?Recorded ?Confirmed trazodone 100 mg tablet 100 mg PO HS 09/04/23 12/09/24 buspirone 10 mg tablet 10 mg PO NEEDED PRN Anxiety 05/25/24 12/09/24 escitalopram oxalate 20 mg tablet 20 mg PO DAILY 05/25/24 12/09/24 albuterol sulfate 90 mcg/actuation 90 mcg inhalation NEEDED PRN SOA 06/10/24 12/09/24 aerosol inhaler (Ventolin HFA) lisinopril 20 mg tablet 20 mg PO DAILY 10/14/24 12/09/24 Previous Rx's ?Medication ?Instructions ?Recorded hydrocortisone 2.5 % topical cream 1 applic NV QD-BID PRN hemorrhoids 05/25/24 with perineal applicator #30 grams (Proctosol HC) estradiol 1 mg tablet See Rx Instructions .Route 08/03/24 .COMPLEX #30 tabs nitroglycerin 0.4 mg sublingual 0.4 mg sublingual Q5M PRN chest 10/10/24 tablet pain #14 tabs pantoprazole 40 mg tablet,delayed 40 mg PO DAILY #30 tabs 10/11/24 release (Protonix) hydrocortisone 1 %-pramoxine 1 % 1 applic NV QID PRN hemorrhoids 11/15/24 rectal foam (Proctofoam HC) #10 grams metronidazole 500 mg tablet 500 mg PO BID 7 days #14 tabs 12/18/24 Allergies Allergy/AdvReac Type Severity Reaction Status Date / Time adhesive tape Allergy Mild Rash Verified 12/18/24 11:00 [facility] Disclaimer: The information contained in this section may have been updated after the patient was seen, as this information can be updated by other users. Medical History Left knee DJD Abnormal cardiovascular stress test Atypical angina Preop testing Sleep apnea Thyroid Nodule Hearing loss in right ear Loose left total knee arthroplasty Chronic sinusitis H/O Eustachian tube dysfunction Hearing difficulty of right ear Dyspnea on exertion FARHEEN (obstructive sleep apnea) Meningioma Seizures Ovarian cyst Breast cancer Hx of thyroid cancer Implantable loop recorder present Tachycardia History of hypertension PTSD (post-traumatic stress disorder) Anxiety Depression Surgical History History of partial thyroidectomy History of loop recorder H/O: knee surgery History of carpal tunnel repair History of cholecystectomy History of abdominal hysterectomy total, [place] Family History Other Anemia Asthma Cancer Coronary artery disease Diabetes FHx: mental illness Heart attack Hyperlipidemia Hypertension Thyroid disorder Social History Smoking Status: Never smoker alcohol intake: current alcohol intake frequency: holidays/special occasions only counseling provided: none substance use type: denies use current occupational status: unemployed Travel in the last 8 weeks?: None household members: none housing: house marital status: single number of children: 3 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 current occupational exposures/hazards: No caffeine: No Have you lived/traveled outside [place] in past 30 days?: No Contact w/someone who lives/traveled outside [place] past 30 days?: No Exposure to someone with infectious disease in past 14 days?: No Do you have a fever (greater than 100.4 F or 38 C)?: No Have you tested positive for COVID-19?: No Exposed to someone with COVID-19 in past 14 days?: No Do you have a sore throat?: No Do you have a cough?: No Do you have any weakness?: No Do you have any diarrhea?: No Are you experiencing any unusual bleeding?: No Do you have any muscle aches/pain?: No Do you have any abdominal pain?: No Are you experiencing loss of taste or smell?: No Other Medical History Have you received the Flu Vaccine for this season: No Have you received the Pneumonia Vaccine: No ROS Obtained: Yes All systems reviewed & no additional complaints except as documented Physical Exam General General appearance: alert and in no apparent distress Respiratory Respiratory exam: Present normal lung sounds bilaterally; Absent respiratory distress Cardiovascular Cardiovascular exam: Present regular rate and normal rhythm Extremities Exam Extremities exam: Present other (Bilateral lower extremity pitting edema appears clinically to me to be symmetric however she complains of left greater than right is not confined to the knee but rather bilateral lower extremities no erythema warmth soft tissue abnormalities etc.) Neurological Exam Neurological exam: Present alert and oriented X3 Medical Decision Making Medical Records Screening: Per USPSTF and CDC recommendations, given the prevalence of disease in our region, it is our hospital?s policy to screen for HIV and viral Hepatitis for all patients aged 18 and over and those with ongoing risk factors. [place] Inquiry Pt receiving controlled substance: No Vital Signs: 12/18/24 10:56 12/18/24 10:59 12/18/24 12:00 Temperature 97.8 F 98.2 F Temperature Source Oral Temporal Artery Scan Pulse Rate 58 L 60 Pulse Rate [Right Brachial] 75 Respiratory Rate 16 18 Blood Pressure 112/82 120/91 H Blood Pressure [Right Arm] 136/76 Blood Pressure Mean [Right Arm] 96 Blood Pressure Source Automatic Cuff Blood Pressure Source [Right Arm] Automatic Cuff Blood Pressure Position Sitting Blood Pressure Position [Right Arm] Sitting 02 Sat by Pulse Oximetry 97 96 95 Oxygen Delivery Method Room Air Room Air Room Air 12/18/24 12:31 12/18/24 13:31 12/18/24 14:00 Temperature Temperature Source Pulse Rate 56 L 50 L 51 L Pulse Rate [Right Brachial] Respiratory Rate Blood Pressure 111/76 125/84 138/84 Blood Pressure [Right Arm] Blood Pressure Mean [Right Arm] Blood Pressure Source Blood Pressure Source [Right Arm] Blood Pressure Position Blood Pressure Position [Right Arm] 02 Sat by Pulse Oximetry 94 L 95 97 Oxygen Delivery Method Room Air Room Air Room Air 12/18/24 14:25 Temperature 98.2 F Temperature Source Temporal Artery Scan Pulse Rate 53 L Pulse Rate [Right Brachial] Respiratory Rate 18 Blood Pressure 138/84 Blood Pressure [Right Arm] Blood Pressure Mean [Right Arm] Blood Pressure Source Automatic Cuff Blood Pressure Source [Right Arm] Blood Pressure Position Sitting Blood Pressure Position [Right Arm] 02 Sat by Pulse Oximetry Oxygen Delivery Method Room Air Lab Data Lab results reviewed: Yes I reviewed the patient's lab results. Lab Results 12/18/24 11:51: Urine Color Yellow, Urine Appearance Slightly cloudy, Urine pH 7.0, Ur Specific [place] 1.020, Urine Protein Negative, Urine Glucose (UA) Negative, Urine Ketones Negative, Urine Blood Negative, Urine Nitrate Negative, Urine Bilirubin Negative, Urine Urobilinogen 0.2, Ur Leukocyte Esterase Trace, Urine RBC None, Urine WBC 3-5, Ur Squamous Epith Cells 3-5, Urine Bacteria 1+, Urine Trichomonas Occasional 12/18/24 12:31: WBC 6.7, RBC 4.24, Hgb 13.4, Hct 39.0, MCV 92.0, MCH 31.6 H, MCHC 34.4, RDW 12.2, Plt Count 265, MPV 10.2, Neut % (Auto) 60.8, Lymph % (Auto) 29.8, [place] % (Auto) 6.0, Eos % (Auto) 2.5, Baso % (Auto) 0.6, Neut # (Auto) 4.1, Lymph # (Auto) 2.0, [place] # (Auto) 0.4, Eos # (Auto) 0.2, Baso # (Auto) 0.0, PT 10.3, INR 0.92, APTT 25.4, D-Dimer 0.88 H, Sodium 135 L, Potassium 3.7, Chloride 103, Carbon Dioxide 25, Anion Gap 10.7, BUN 9, Creatinine 1.00, Estimated Creat Clear 106, Estimated GFR 59, Est GFR ( Amer) 72, Glucose 113 H, Calcium 8.6, Total Bilirubin 0.4, AST 25, ALT 14, Alkaline Phosphatase 86, Troponin I < 0.01, NT-Pro-B Natriuret Pep 130 H, Total Protein 7.1, Albumin 3.4 L, Globulin 3.7 H, Albumin/Globulin Ratio 0.9 L 12/18/24 12:31 12/18/24 12:31 Orders (Tests/Meds): ORDERS Category Date Time Status CXR --portable [XR chest portable] Stat Exams 12/18/24 11:46 Completed BNP [NT Pro Brain Natriuretic Pep.] Stat Lab 12/18/24 12:31 Completed CBC w/Auto Diff [Complete Blood Count Auto Diff] Stat Lab 12/18/24 12:31 Completed CMP [Comprehensive Metabolic Panel] Stat Lab 12/18/24 12:31 Completed D-Dimer Stat Lab 12/18/24 12:31 Completed PT/PTT Stat Lab 12/18/24 12:31 Completed Trop I [Troponin I] Stat Lab 12/18/24 12:31 Completed Troponin I Q3H Lab 12/18/24 15:00 Ordered Troponin I Q3H Lab 12/18/24 18:00 Ordered UA [Urinalysis and Microscopic] Stat Lab 12/18/24 11:51 Completed Medical Decision Narrative: Patient with above history and physical. She did tell me she has some mild dyspnea in addition to bilateral lower extremity edema differential includes heart failure pulmonary embolism nephrotic syndrome protein-losing enteropathy cirrhosis etc. Basic metabolic function test have been ordered in addition to a D-dimer. With regards to a pulmonary embolism I will use years criteria to rule out the need for a CT PE. However with regards to DVT of her D-dimer is greater than 0.5 we will have her set up with an outpatient ultrasound. Nonetheless we will have her follow-up with cardiology given the fact that she is complained of some dyspnea with lower extremity edema for further cardiac workup after today's evaluation. Reassessment 226 pm. Patient very well appearing. Labs essentially unremarkable aside from a mildly elevated D-dimer cannot definitively rule out DVT will get an outpatient ultrasound order placed I do not feel strongly enough to put her on prophylactic anticoagulation till that point is asked of a low pretest probability. Regarding her symptoms I do recommend that she follow-up with cardiology. Chest x-ray was also performed to personally interpreted shows no acute cardiopulmonary emergency. Patient understands there is some diagnostic uncertainty and to definitively follow-up to get this ultrasound performed and to follow-up with cardiology. Also incidentally we found trichomonas in her urine and we will treat her for that. She has been made aware that and understood. Discharged in stable condition Critical Care Critical Care Time Critical Care Time: No
[2024-12-18 12:05] LABS: Microscopic, Urine URINE MICROSCOPIC (MICROSCOPIC)
[2024-12-18 12:16] LABS: Bilirubin,Urine Negative (Negative); Color,Urine YELLOW (Yellow); Glucose,Urine (UA) Negative (Negative); Ketones,Urine Negative (Negative); Leukocyte Esterase,Urine TRACE (Negative); PH,Urine 7.0 (5.0-8.5); Protein,Urine Negative (Negative); Specific Gravity, Urine 1.020 (1.005-1.030); Urobilinogen,Urine 0.2 EU/dl (0.2)
[2024-12-18 12:42] LABS: Hematocrit 39.0 % (37.0-47.0); Hemoglobin 13.4 g/dL (12.2-16.2); Immature Granulocytes % 0.3 %; Mean Corpuscular HGB Conc 34.4 g/dL (31.8-35.4); Mean Corpuscular Hemoglobin 31.6 pg (27.0-31.2); Mean Corpuscular Volume 92.0 fl (81-99); Nucleated Red Blood Cells % 0 %; Platelet Count 265 K/mm3 (142-424); Red Blood Count 4.24 M/mm3 (4.20-5.40); Red Cell Distribution Width-SD 41.0 fL; White Blood Count 6.7 K/mm3 (4.8-10.8)
--- NOTE | 2024-12-18 13:08 | PC.NURSE ---
1250- lab called, need to recoolect green top. tried to obtain it through her IV with a tourniquet. no success. patient agreeable to straight stick. straight stick perfomred at this time. 1255- lab called for a blue top to be recollected. this RN attempted for another IV vs straight stick at this time due to having to redraw multiple labs. no success. hired help at bedside attempting at this time.
[2024-12-18 13:22] LABS: Alanine Aminotransferase 14 U/L (12-78); Albumin Level 3.4 g/dl (3.5-5.0); Albumin/Globulin Ratio 0.9 (1.1-1.8); Alkaline Phosphatase 86 U/L (38-126); Anion Gap 10.7 mEq/L (5-15); Aspartate Amino Transferase 25 U/L (14-36); Bilirubin,Total 0.4 mg/dl (0.2-1.3); Blood Urea Nitrogen 9 mg/dl (7-17); Calcium 8.6 mg/dl (8.4-10.2); Carbon Dioxide 25 mmol/L (22.0-30.0); Chloride 103 mmol/L (98-107); Creatinine Clearance Estimated 106 mL/min (50-200); Creatinine,Serum 1.00 mg/dl (0.52-1.04); Estimated Glomerular Filt Rate 59 ml/min (>60); GFR (African American) 72 ML/MIN (>60); Globulin 3.7 g/dL (1.3-3.2); Glucose 113 mg/dl (74-100); Potassium 3.7 mmoL/L (3.5-5.1); Sodium 135 mmol/L (136-145); Total Protein,Serum 7.1 g/dl (6.3-8.2)
[2024-12-18 13:31] LABS: NT Pro Brain Natriuretic Pep. 130 pg/mL (0-125)
[2024-12-18 13:36] LABS: Activated Partial Thrombo Time 25.4 seconds (22.8-30.6); INR 0.92 (0.9-1.1); Prothrombin Time 10.3 seconds (10.1-12.5); Troponin I < 0.01 ng/ml (0.00-0.034)
[2024-12-18 13:40] LABS: Bacteria,Urine 1+ /lpf; Trichomonas,Urine Occasional /lpf
[2024-12-18 13:54] LABS: D-Dimer 0.88 ug/mL (0.0-0.5)
== END 2024-12-18 14:32 | disposition home or self-care (01) ==
PROVIDERS: Emergency Provider Student in an Organized Health Care Education/Training Program; PCP Family Medicine
DX: R60.0 Localized edema (principal); R06.02 Shortness of breath; R79.1 Abnormal coagulation profile; A59.9 Trichomoniasis, unspecified; I10 Essential (primary) hypertension
CPT/HCPCS: 71045; 80053; 81001; 83880; 84484; 85025; 85378; 85610; 85730; 99284